=== PATIENT | female | born 1945 | race Caucasian/White ===

== ENCOUNTER 2020-08-11 22:35 | Emergency (ER) | payer MEDICARE, SELFPAY ==
[2020-08-11 22:51] VITALS: BP 147/73; BP 147/79; PULSE 74; PULSE 87; RESP 13; TEMP 37; O2SAT 95; O2SAT 96; BMI 20.9
[2020-08-11 23:00] VITALS: BP 147/73; PULSE 74; PULSE 78; RESP 13; TEMP 37; O2SAT 96
--- NOTE | 2020-08-11 23:01 | ED_ITS ---
HPI - Chest Pain General Chief Complaint: Chest Pain Stated Complaint: CP Time Seen by Provider: 08/11/20 22:49 Source: patient and EMS Mode of arrival: EMS History of Present Illness HPI narrative: 74-year-old female with substernal chest pain for 2 days. Patient states of nonradiating pain mild shortness of breath no dizziness or syncope. Denies nausea or vomiting. Denies fevers or chills. States of dry cough patient states pain has been constant for 2 days and was worried because she has had 2 heart attacks in the past came into the emergency department via ambulance complaint: chest pain Pertinent past history: prior MA Onset (ago): day(s) (2) Timing of current episode: constant Prior episodes: Yes Onset: during rest Pain radiation: none Severity: moderate Associated symptoms: nausea Related Data Allergies Allergy/AdvReac Type Severity Reaction Status Date / Time oxycodone [OXYCODONE] Allergy Unknown UNKNOWN Unverified 06/06/20 15:51 Review of Systems Review of Systems: Constitutional : No Weight loss, No Fever, No Chills, No Night Sweats, No Fatigue, No Malaise ENT/Mouth : No Hearing loss, No Ear Pain, No Nasal Congestion, No Sinus Pain, No Hoarseness, No sore throat, No Rhinorrhea, No Swallowing Difficulty Eyes: No Eye Pain, No Swelling, No Redness, No Foreign Body, No Discharge, No Vision Changes Cardiovascular : Positive Chest Pain, No SOB, No Dyspnea on Exertion, No Orthopnea, No Edema, No Palpitations Respiratory : No Cough, No Sputum, No Wheezing, No Smoke Exposure, No Dyspnea Gastrointestinal : No Nausea, No Vomiting, No Diarrhea, No Constipation, No abdominal Pain, No Hematochezia, No Melena Genitourinary : no irregular bleeding, No Dysuria, No Urinary Frequency, No Hematuria, No Urinary Incontinence, No Urgency, No Flank Pain, No Urinary Flow Changes, No Hesitancy Musculoskeletal : No joint pain, No Myalgias, No Joint Swelling Skin : No Skin Lesions, No rash Neuro : No Weakness, No Numbness, No Paresthesias, No Loss of Consciousness, No Dizziness, No Headache Psych : No Anxiety/Panic, No Depression, No SI/HI/AH/VH, No Social Issues, Heme/Lymph: No Bruising, No Bleeding,No Lymphadenopathy Endocrine : No Polyuria, No Polydipsia, No Temperature Intolerance [facility] Past Medical History Medical History (Updated 08/12/20 @ 01:00 by Christian Walker DO) NSTEMI (non-ST elevated myocardial infarction) Family History Family History (Updated 08/11/20 @ 23:04 by Christian Walker DO) Other Family history non-contributory Social History Social History Household Members: Family Alcohol intake: never Smoked in Last 30 Days: No Use of substances other than those prescribed or required for medical reasons: No Advance Directives: No Advance Directives Information Provided: No Physical Exam Vital Signs: Vital Signs: Last Vital Signs Temp 97.5 F 08/11/20 23:32 Pulse 78 08/11/20 23:32 Resp 18 08/11/20 23:32 BP 136/76 08/11/20 23:32 Pulse Ox 96 08/11/20 23:32 Body Mass Index 20.9 Vital signs reviewed Appearance: Alert. Oriented X3. No acute distress. Nontoxic appearing Eyes: Pupils equal, round and reactive to light. ENT: Pharynx normal. Neck: Normal inspection. Neck supple. No lymph nodes noted. No crepitus CVS: Normal heart rate and rhythm. Pulses normal. Normal S1 and S2 Respiratory: No respiratory distress. Breath sounds normal. No Wheezing. No rales Abdomen: Soft and nontender. No rigidity. No distention. good BS x4 Skin: Skin warm and dry. Normal skin color. Normal skin turgor. Extremities: No lower extremity edema. Neurovascular intact to all extremities. No Lacerations. No Rash Neuro: Oriented X 3. No motor deficit. No sensory deficit. Moving all extermities. No slurred speech. Course Reevaluation(s) Reevaluation #1: Records reviewed by me. 06/07/2020 [facility] Angiocath performed. No significant coronary artery disease. Reevaluation #2: Re-evaluated. Patient states feeling better Time: 00:58 MDM - Chest Pain MDM Narrative Medical decision making narrative: 74-year-old female with several days of chest pain. Troponin negative. Recent cardiac catheterization at [facility] negative also. At this point without shortness of breath or tachycardia or hypoxia will not pursue pulmonary embolism. Will discharge with follow-up with primary care doctor Lab Data Result diagrams: 08/11/20 23:43 08/11/20 23:43 Labs: Lab Results 08/11/20 08/11/20 08/11/20 Range/Units 23:43 23:43 23:43 WBC 4.5 L (4.8-10.8) X10*3/uL RBC 4.15 L (4.20-5.50) X10*6/uL Hgb 12.0 (12.0-16.0) g/dl Hct 37.2 (37-47) % MCV 89.6 (80-98) fL MCH 28.9 (27.0-33.0) pg MCHC 32.3 (31.0-35.0) g/dl RDW 12.8 (11.0-16.0) % Plt Count 175 (160-400) X10*3/uL MPV 10.9 (9.4-12.3) fL Immature Gran % (Auto) 0.2 (0.0-0.4) % Neut % (Auto) 52.5 (45-73) % Lymph % (Auto) 28.7 (20-40) % [place] % (Auto) 13.9 H (2-11) % Eos % (Auto) 4.3 H (0-4) % Baso % (Auto) 0.4 (0-2) % Lymph # (Auto) 1.3 (1.2-4.9) X10*3/uL [place] # (Auto) 0.6 (0.1-1.2) X10*3/uL Eos # (Auto) 0.2 (0.0-0.4) X10*3/uL Baso # (Auto) 0.0 (0.0-0.2) X10*3/uL Abs Immat Gran (auto) 0.01 (0.00-0.03) X10*3/uL Absolute Neuts (auto) 2.3 (2.0-8.3) X10*3/uL Absolute Nucleated RBC 0.000 (0.0-0.012) X10*3/uL Nucleated RBC % (auto) 0.0 (0.0-0.2) /100WBC Sodium 138 (135-145) mmol/L Potassium 4.1 (3.3-5.1) mmol/l Chloride 106 (96-108) mmol/L Carbon Dioxide 25 (22-29) mmol/L Anion Gap 11 L (12-20) BUN 22 H (9-16) mg/dL Creatinine 0.85 (0.5-1.4) mg/dL Estim Creat Clear Calc 43.8 Estimated GFR > 60 Random Glucose 121 H (60-115) mg/dL Calcium 8.1 L (8.4-10.2) mg/dL Total Bilirubin < 0.2 (0.0-1.0) mg/dL Direct Bilirubin < 0.2 (0.0-0.5) mg/dL AST 23 (5-31) U/L ALT 18 (0-31) U/L Alkaline Phosphatase 119 H (39-117) U/L Troponin I High Sens 7.2 (<3.5-17.0) ng/L Total Protein 6.4 L (6.5-8.0) g/dL Albumin 3.8 (3.5-5.0) g/dL Lipase 56 (8-78) U/L ECG Data ECG #1: Attestation: I personally reviewed and interpreted this ECG as follows: Interpretation: Normal sinus rhythm at 75 beats per minute. Rightward axis. No ST-T changes. Normal p.r. interval Discharge Plan Discharge Clinical Impression: Chest pain Qualifiers: Chest pain type: unspecified Qualified Code(s): R07.9 - Chest pain, unspecified Patient Disposition: Home, Self-Care Instructions: Chest Pain (ED) Additional Instructions: Thank you for visiting the emergency department today. If your symptoms worsen or do not resolve completely please return to the emergency department immediately or call 911. if he have any questions please call your primary care physician Referrals: Tiffany Kent MD [Primary Care Provider] - 2 days Interventions: ED Discharge Assessment Last Done: 08/12/20 01:14 Discharge Date/Time: 08/12/20 01:14 Print Language: Russian
--- NOTE | 2020-08-11 23:05 | ECG_ITS ---
Test Reason : CP Blood Pressure : / mmHG Vent. Rate : 075 BPM Atrial Rate : 075 BPM P-R Int : 136 ms QRS Dur : 064 ms QT Int : 402 ms P-R-T Axes : 036 000 020 degrees QTc Int : 448 ms Normal sinus rhythm Normal ECG When compared with ECG of 20-MAR-2020 14:16, No significant change was found Referred By: Christian Walker Electronically Signed By:KINZA COTTON MD
[2020-08-11 23:32] VITALS: BP 136/76; PULSE 78; RESP 18; TEMP 36.4; O2SAT 96
[2020-08-11 23:48] LABS: MANUAL DIFF FLAG NO
[2020-08-11 23:50] LABS: Basophils Percent Auto 0.4 % (0-2); Eosinophils Absolute Auto 0.2 X10*3/uL (0.0-0.4); Eosinophils Percent Auto 4.3 % (0-4); Hematocrit 37.2 % (37-47); Imm Gran Abs Auto 0.01 X10*3/uL (0.00-0.03); Imm Gran Pct Auto 0.2 % (0.0-0.4); Lymphocytes Absolute Auto 1.3 X10*3/uL (1.2-4.9); Lymphocytes Percent Auto 28.7 % (20-40); Mean Corpuscular HGB Conc 32.3 g/dl (31.0-35.0); Mean Corpuscular Hemoglobin 28.9 pg (27.0-33.0); Mean Corpuscular Volume 89.6 fL (80-98); Mean Platelet Volume 10.9 fL (9.4-12.3); Monocytes Absolute Auto 0.6 X10*3/uL (0.1-1.2); Monocytes Percent Auto 13.9 % (2-11); Neutrophils Absolute Auto 2.3 X10*3/uL (2.0-8.3); Neutrophils Percent Auto 52.5 % (45-73); Platelet Count 175 X10*3/uL (160-400); Red Blood Count 4.15 X10*6/uL (4.20-5.50); Red Cell Distribution Width 12.8 % (11.0-16.0); White Blood Count 4.5 X10*3/uL (4.8-10.8)
--- NOTE | 2020-08-12 00:05 | XR_ITS ---
EXAMINATION: XR CHEST CLINICAL INFORMATION: Chest pain COMPARISON: 03/20/2020 TECHNIQUE: Frontal view of the chest was obtained. FINDINGS: Normal symmetric lung volumes. No parenchymal consolidation. No pleural effusion. No pneumothorax. Cardiomediastinal silhouette and pulmonary vascularity are within normal limits. Aorta is atherosclerotic. No acute osseous abnormalities. XR/XR chest 1V IMPRESSION: No acute findings.
[2020-08-12 00:23] LABS: Troponin-I High Sensitivity 7.2 ng/L (<3.5-17.0)
[2020-08-12 00:25] LABS: Alanine Aminotransferase 18 U/L (0-31); Albumin Level 3.8 g/dL (3.5-5.0); Alkaline Phosphatase 119 U/L (39-117); Anion Gap 11 (12-20); Aspartate Amino Transferase 23 U/L (5-31); Bilirubin Direct < 0.2 mg/dL (0.0-0.5); Bilirubin Total < 0.2 mg/dL (0.0-1.0); Blood Urea Nitrogen 22 mg/dL (9-16); Calcium 8.1 mg/dL (8.4-10.2); Carbon Dioxide 25 mmol/L (22-29); Chloride 106 mmol/L (96-108); Creatinine Clr Calc Pharmacy 43.8; Estimated Glomerular Filt Rate > 60; Glucose Random 121 mg/dL (60-115); Lipase 56 U/L (8-78); Potassium 4.1 mmol/l (3.3-5.1); Sodium 138 mmol/L (135-145); Total Protein 6.4 g/dL (6.5-8.0)
== END 2020-08-12 01:14 | disposition home or self-care (01) ==
PROVIDERS: Emergency Provider Emergency Medicine; PCP Family Medicine
DX: R07.9 Chest pain, unspecified (principal); I25.2 Old myocardial infarction; Z79.899 Other long term (current) drug therapy
CPT/HCPCS: 36415; 71045; 80048; 80076; 83690; 84484; 85025; 93005; 99284

== ENCOUNTER 2020-10-15 16:08 | Emergency (ER) | payer MEDICARE, SELFPAY ==
[2020-10-15 16:24] VITALS: BP 147/66; BP 160/92; PULSE 104; PULSE 80; RESP 16; TEMP 36.6; O2SAT 95; O2SAT 97; BMI 24.2
--- NOTE | 2020-10-15 16:28 | XR_ITS ---
EXAMINATION: XR LUMBOSACRAL SPINE CLINICAL INFORMATION: Fall. COMPARISON: None TECHNIQUE: 2 views of lumbar spine FINDINGS: The lumbar vertebrae have normal height and normal alignment. No fracture or bone destruction. There is spurs at the anterior endplates of lumbar vertebrae most pronounced at the lower 3 lumbar vertebral bodies. There is mild to moderate facet joint arthrosis most pronounced at the L5-S1 disc level. No spondylolysis or spondylolisthesis. There are surgical clips right upper quadrant of abdomen. Moderate volume of stool in colon. No abnormally dilated bowel loop. No radiopaque urinary calculus. XR/XR lumbar spine 2-3V IMPRESSION: 1. No acute abnormality. 2. Moderate degenerative changes of lumbar spine.
--- NOTE | 2020-10-15 16:28 | CT_ITS ---
EXAMINATION: CT HEAD WITHOUT CONTRAST CT CERVICAL SPINE WITHOUT CONTRAST CLINICAL INFORMATION: Fall. COMPARISON: CT head 03/20/2020 TECHNIQUE: Imaging was performed from the skull base to vertex without intravenous administration of contrast. In addition, helical noncontrast CT imaging was acquired through the cervical spine and source images were reviewed along with axial reconstructions and sagittal and coronal MPRs. [This CT examination was performed using dose optimization techniques as appropriate, variously including the following: *Automated exposure control *Adjustment of mA and/or kV according to patient size (this includes techniques or standardized protocols for targeted exams where dose is matched to indication/reason for exam; i.e. extremities or head) *Use of iterative reconstruction technique] DLP: 862 mGy-cm FINDINGS: HEAD: No intracranial mass, hemorrhage, or midline shift is visualized. There is age-appropriate atrophy with prominence of the ventricles and the sulci and hypodensity of the periventricular white matter due to chronic small vessel ischemic disease. There are vascular calcifications of the internal carotid arteries bilaterally. No extra-axial collections are identified. The paranasal sinuses and mastoid air cells are well aerated. CERVICAL SPINE: There is no evidence of acute cervical spine fracture. Vertebral bodies remain normal in height. Cervical vertebrae have normal alignment. There is multilevel degenerative spondylosis of the cervical spine with disc height narrowing and endplate spurs and facet joint arthrosis No pre- or paravertebral soft tissue abnormality is identified. Limited assessment of the lung apices is unremarkable. CT/CT cervical spine wo con IMPRESSION: 1. No acute intracranial pathology. 2. No CT evidence of acute cervical spine fracture or traumatic subluxation
--- NOTE | 2020-10-15 16:28 | XR_ITS ---
EXAMINATION: XR SACRUM AND COCCYX CLINICAL INFORMATION: Fall. COMPARISON: None TECHNIQUE: 2 views of the sacrum and coccyx. FINDINGS: No fracture of the sacrum and coccyx. The sacroiliac joints are normal. XR/XR sacrum coccyx min 2V IMPRESSION: Normal sacrum and coccyx.
--- NOTE | 2020-10-15 16:32 | ED_ITS ---
HPI - Fall General Chief Complaint: Fall Stated Complaint: FALL,+HEADSTRIKE,-LOC,+THINNERS,+COLLAR Time Seen by Provider: 10/15/20 16:22 Source: patient Mode of arrival: ambulatory Limitations: no limitations History of Present Illness HPI Narrative: Patient presents to the ED for fall. Patient states she was on ladder putting up a doll on her shelf and while trying to get down she missed a step and slipped and that caused her to fall onto her back and hit the back of her head. Patient denies any loss of consciousness. Patient main complaint is slight posterior headache and lower back pain. Patient denies any abdominal pain, chest pain, shortness of breath or pain in extremites. Patient able to move upper and lower extremities. Patient denies having any chest pain, dizziness, abdominal pain, or headache before falling. Once again patient states she lost step on the ladder and than slipped and fell backwards. MD complaint: fall Related Data Allergies Allergy/AdvReac Type Severity Reaction Status Date / Time oxycodone [OXYCODONE] Allergy Unknown UNKNOWN Verified 10/15/20 16:32 Review of Systems Review of Systems: Yes all other systems are reviewed and are negative Constitutional: Constitutional: Reports as per HPI, Reports no additional constitutional complaints and Reports headache(s) Eyes: Eyes: Reports as per HPI and Reports no additional eye complaints ENT: Reports system reviewed and no additional complaints, except as documented, Reports as per HPI and Reports headache(s) Cardiovascular: Cardiovascular: Reports as per HPI and Reports no additional cardiovascular complaints Respiratory: Respiratory: Reports as per HPI and Reports no additional respiratory complaints Gastrointestinal: Gastrointestinal: Reports as per HPI and Reports no additional gastrointestinal complaints Genitourinary: Genitourinary: Reports no additional female genitourinary complaints and Reports as per HPI Musculoskeletal: Musculoskeletal: Reports no additional musculoskeletal complaints, Reports as per HPI and Reports back pain Neurologic: Reports system reviewed and no additional complaints, except as documented, Reports as per HPI and Reports headache(s) Psychiatric: Psychiatric: Reports no additional psychiatric complaints and Reports as per HPI PMF Past Medical History Medical History NSTEMI (non-ST elevated myocardial infarction) Family History Family History (Updated 08/11/20 @ 23:04 by Christian Walker DO) Other Family history non-contributory Social History Social History Household Members: Family Alcohol intake: never Advance Directives: No Advance Directives Information Provided: No Physical Exam Vital Signs: Vital Signs: Last Vital Signs Temp 98.7 F 10/15/20 17:08 Pulse 78 10/15/20 17:08 Resp 14 10/15/20 17:08 BP 154/73 H 10/15/20 17:08 Pulse Ox 93 10/15/20 17:08 Body Mass Index 24.2 Const: General: cooperative, healthy appearing, comfortable, no acute distress, well developed, alert, awake and Physically active Orientation/consciousness: patient oriented x3 HENMT: Head: Yes normal to inspection, Yes No palpable skull fracture present, Yes normocephalic, Yes atraumatic, No abrasion, No Acrocyanosis present, No [place]'s sign, No contusion, No cranial bruits, No hematoma, No laceration, No occipital foramen tenderness, No palpable skull fracture, No raccoon eyes, No scalp lesion, Yes scalp tenderness (posterior parietal.), No Temporal artery tenderness present and No periorbital ecchymosis Eyes: General: appearance normal, both eyes and all related structures Neck: Neck: Yes normal visual inspection, Yes full ROM, Yes no lymphadenopathy, Yes no meningeal signs, Yes trachea midline, Yes supple and No tender Chest: Other: Negative for any ecchymosis or tenderness. Chest palpation & inspection: normal inspection of the chest and normal palpation of entire chest wall Resp: Effort & Inspection: normal respiratory effort and able to speak in complete sentences Auscultation: clear to auscultation bilaterally Cardio: Jugular venous distension: no JVD Heart sounds: S1 normal heart sound present and S2 normal heart sound present GI: Inspection: Yes normal to inspection and No abdominal wall ecchymosis Palpation (GI): Soft to palpation, not firm, nontender, no guarding and not rigid : General: No CVA tenderness and Yes no CVA tenderness Back/Spine/Pelvis: Back: no CVA tenderness, No CVA tenderness and back tenderness (Positive for lumbar/sacral/coccyx tenderness on palpation) Skin: General skin exam: no rashes or lesions noted and elasticity normal Neuro: General: patient oriented x3, gait normal, no meningeal signs and CN's II-XI intact bilaterally Cranial nerves: Yes CN's II-XII intact bilaterally Extrem: Other: Patient has complete range of motion of all extremities. Negative for any deformities, contusion, or tenderness of any extremities. Psych: Appearance: grossly normal, well kempt and not disheveled Course Course Course Narrative: History physical exam indicate mechanical fall. Presently no labs indicated. Patient does not have any chest pain or abdominal pain to indicate any imaging of the chest or abdomen. Patient will have head, CT, and lower back imaging. Patient given Tylenol Reevaluation(s) Reevaluation #1: Head CT and cervical C-spine came back negative for any brain bleed, skull fracture, a neck fracture. Awaiting for x-rays. Time: 17:44 Reevaluation #2: Patient lumbar and sacral x-rays came back negative for any fractures. Patient walked around to the bathroom by herself with normal gait. Bedside fast ultrasound negative for any blood. Patient is safe for discharge. No indication for labs or ekg. Patient had mechanical fall onto her head and back. Patient denies any chest pain. Time: 19:12 MDM - Fall MDM Narrative Medical decision making narrative: Fall Discharge Plan Discharge Clinical Impression: Accident due to mechanical fall without injury Patient Disposition: Home, Self-Care Instructions: Head Injury (ED), Fall Prevention (ED) Additional Instructions: Return to the ED immediately for worsening headache, dizziness, chest pain, shortness of breath, abdominal pain, bloody urine, blood in stool, or any other concerning symptoms. Patient take [id number] Tylenol. Follow up with PCP Interventions: ED Discharge Assessment Last Done: 10/15/20 20:05 Discharge Date/Time: 10/15/20 20:07 Print Language: Turkmen
[2020-10-15] MEDS: Acetaminophen 325 MG TABLET 650 MG PO (16:37)
[2020-10-15 17:08] VITALS: BP 154/73; PULSE 78; RESP 14; TEMP 37.1; O2SAT 93
--- NOTE | 2020-10-15 19:37 | PC.NURSE ---
PT REMAINS A&OX4, REPORTING CHRONIC HEADACHE, IMPROVED WITH APAP. AMBULATING STEADILY, VS HAVE BEEN WNL.
== END 2020-10-15 20:07 | disposition home or self-care (01) ==
PROVIDERS: Emergency Provider Emergency Medicine Emergency Medical Services; PCP Family Medicine
DX: S09.90XA Unspecified injury of head, initial encounter (principal); W11.XXXA Fall on and from ladder, initial encounter; G89.11 Acute pain due to trauma; M54.5 Low back pain; Y93.89 Activity, other specified; Y92.019 Unspecified place in single-family (private) house as the place of occurrence of the external cause; Y99.9 Unspecified external cause status
CPT/HCPCS: 70450; 72100; 72125; 72220; 99284

== ENCOUNTER 2020-10-28 11:19 | Emergency (ER) | payer MEDICARE, SELFPAY ==
--- NOTE | ~2020-10-28 | XR_ITS ---
EXAMINATION: XR CHEST CLINICAL INFORMATION: Fever and cough COMPARISON: Previous chest x-ray July 2020 TECHNIQUE: Frontal view of the chest was obtained. FINDINGS: The cardiac and mediastinal contours are normal. There are increased markings at the left lung base overlying the left heart questionable for bronchial wall thickening or small infiltrate. The lungs are otherwise clear. There is no pleural effusion or pneumothorax. Bony structures are unremarkable. XR/XR chest 1V IMPRESSION: Question bronchial wall thickening or small infiltrate at the left lung base.
[2020-10-28 11:40] VITALS: BP 135/77; PULSE 96; RESP 18; TEMP 39; O2SAT 95; BMI 22.4
--- NOTE | 2020-10-28 11:46 | ECG_ITS ---
Test Reason : CHEST PAIN Blood Pressure : / mmHG Vent. Rate : 093 BPM Atrial Rate : 093 BPM P-R Int : 122 ms QRS Dur : 068 ms QT Int : 336 ms P-R-T Axes : 041 -11 039 degrees QTc Int : 417 ms Normal sinus rhythm Nonspecific ST and T wave abnormality Borderline EKG When compared with ECG of 11-AUG-2020 23:29, No significant change was found Referred By: Chika Agosto Electronically Signed By:RAGHU MULLINS
--- NOTE | 2020-10-28 11:50 | ED_ITS ---
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 Has been at home is sick with similar symptoms. On arrival the patient is noted to be febrile. She denies any chest pain, shortness of breath, cough, vomiting, diarrhea, abdominal pain, urinary symptoms. MD elicited complaint: malaise and other (body aches ) Onset (ago): day(s) Associated symptoms: denies other symptoms Related Data Previous Rx's Medication Instructions Recorded azithromycin 250 mg PO DAILY 4 Days #4 tab 10/28/20 cefdinir 300 mg PO BID #14 cap 10/28/20 Allergies Allergy/AdvReac Type Severity Reaction Status Date / Time oxycodone [OXYCODONE] Allergy Unknown UNKNOWN Verified 10/28/20 11:43 Review of Systems Review of Systems: Yes all other systems are reviewed and are negative Constitutional: Constitutional: Reports no additional constitutional complaints, Reports body ache(s), Denies chills, Denies fever(s), Denies headache(s), Reports malaise and Denies weakness Eyes: Eyes: Reports no additional eye complaints and Denies change in vision ENT: Reports system reviewed and no additional complaints, except as documented, Denies dizziness, Denies headache(s), Denies nasal congestion, Denies nasal discharge and Denies neck pain Cardiovascular: Cardiovascular: Reports no additional cardiovascular complaints, Denies chest pain, Denies leg edema and Denies dyspnea Respiratory: Respiratory: Reports no additional respiratory complaints, Denies cough and Denies dyspnea Gastrointestinal: Gastrointestinal: Reports no additional gastrointestinal complaints, Denies abdominal pain, Denies diarrhea, Denies nausea and Denies vomiting Genitourinary: Genitourinary: Reports no additional female genitourinary com plaints and Denies urinary incontinence Musculoskeletal: Musculoskeletal: Reports no additional musculoskeletal complaints, Denies back pain, Denies arthralgias, Denies joint swelling, Denies neck pain, Denies numbness and Denies tingling Integumentary/Breasts: Skin/Breast: Reports system reviewed and no additional complaints, except as docu and Denies rash Neurologic: Reports system reviewed and no additional complaints, except as documented, Denies Abnormal speech present, Denies dizziness, Denies headache(s), Denies numbness, Denies tingling and Denies weakness PMFSH Past Medical History Attestation statement: The following information was validated with the patient. Source: old records reviewed and nursing notes reviewed Medical History (Updated 10/28/20 @ 14:07 by Darlene Lake NP) Aortic insufficiency Depression Diabetes GERD (gastroesophageal reflux disease) High cholesterol Hypertension NSTEMI (non-ST elevated myocardial infarction) Pancreatitis Family History Family History Other Family history non-contributory Social History Social History Household Members: Family Alcohol intake: never Advance Directives: No Advance Directives Information Provided: Yes Physical Exam Vital Signs: Vital Signs: Last Vital Signs Temp 100.1 F 10/28/20 12:04 Pulse 88 10/28/20 12:04 Resp 18 10/28/20 12:04 BP 143/73 H 10/28/20 12:04 Pulse Ox 92 10/28/20 12:04 Body Mass Index 22.4 Const: General: cooperative, healthy appearing, comfortable and no acute distress Orientation/consciousness: patient oriented x3 Limitations: no limitations HENMT: Head: Yes normal to inspection Ears: hearing grossly normal bilaterally General nose exam: Normal external nose present Face and sinus: Yes normal facial exam Mouth: Normal oral and palatal mucosa present Throat: Yes posterior oropharynx normal Eyes: General: appearance normal, both eyes and all related structures Pupils: Equal, round and reactive pupils present Neck: Neck: Yes normal visual inspection Chest: Chest palpation & inspection: normal inspection of the chest Resp: Effort & Inspection: normal respiratory effort Auscultation: clear to auscultation bilaterally Cardio: Rate: regular rate Rhythm: regular rhythm Peripheral pulses: Peripheral pulses 2+ throughout GI: Inspection: Yes normal to inspection Palpation (GI): Soft to palpation and nontender Auscultation: normal bowel sounds Back/Spine/Pelvis: Thoracic/Lumbar Spine: thoracic and lumbar spine normal to inspection Skin: General skin exam: no rashes or lesions noted Neuro: General: patient oriented x3, no focal motor deficits and normal sensation to monofilament Cranial nerves: Yes Equal, round and reactive pupils present Cognition (Neuro): normal cognition Speech: No Abnormal speech present Gait exam (Neuro): Normal gait present Motor exam (neuro): 5/5 motor strength present throughout Extrem: General: Yes normal to inspection Course Course Course Narrative: 75-year-old female here with body aches, noted to be febrile on arrival. Has been at home is sick with similar symptoms. No other complaints. Will need labs including blood cultures, lactic acid, COVID-19 swab, UA, chest x-ray. 1256-COVID positive. Chest x-ray concerning for a small infiltrate at the left lung base. Antibiotics ordered. 1415-labs reviewed and are unremarkable. The patient does had a troponin which is chronically elevated and does not appear worsened from previous troponins. EKG shows no acute changes. With oxygen saturations greater than 96% with no shortness of breath. Temp and heart rate improved on discharge. Patient unable to provide urine sample she was here in the emergency department. Offered to stay in ED and wait for sample but she declined this. Discussed with patient and she is comfortable being discharged home. She lives with family. Reviewed worrisome signs and symptoms and when to return to the emergency department. Comfortable discharge home. MDM - Fever MDM Narrative Medical decision making narrative: PNA, COVID 19, viral syndrome Medical Records Attestation: I reviewed the patient's medical records. Lab Data Attestation: I reviewed the patient's lab results. Result diagrams: 10/28/20 12:12 10/28/20 12:12 Labs: Lab Results 10/28/20 10/28/20 10/28/20 Range/Units 12:12 12:12 12:12 WBC 3.2 L (4.8-10.8) X10*3/uL RBC 4.52 (4.20-5.50) X10*6/uL Hgb 13.1 (12.0-16.0) g/dl Hct 40.3 (37-47) % MCV 89.2 (80-98) fL MCH 29.0 (27.0-33.0) pg MCHC 32.5 (31.0-35.0) g/dl RDW 13.2 (11.0-16.0) % Plt Count 164 (160-400) X10*3/uL MPV 11.0 (9.4-12.3) fL Immature Gran % (Auto) 0.6 H (0.0-0.4) % Neut % (Auto) 60.4 (45-73) % Lymph % (Auto) 17.5 L (20-40) % [place] % (Auto) 20.6 H (2-11) % Eos % (Auto) 0.3 (0-4) % Baso % (Auto) 0.6 (0-2) % Lymph # (Auto) 0.6 L (1.2-4.9) X10*3/uL [place] # (Auto) 0.7 (0.1-1.2) X10*3/uL Eos # (Auto) 0.0 (0.0-0.4) X10*3/uL Baso # (Auto) 0.0 (0.0-0.2) X10*3/uL Abs Immat Gran (auto) 0.02 (0.00-0.03) X10*3/uL Absolute Neuts (auto) 1.9 L (2.0-8.3) X10*3/uL Absolute Nucleated RBC 0.000 (0.0-0.012) X10*3/uL Nucleated RBC % (auto) 0.0 (0.0-0.2) /100WBC Smear Tech's Comments VERIFIED Hold Blue Top SEE NOTE Sodium 136 (135-145) mmol/L Potassium 4.4 (3.3-5.1) mmol/L Chloride 103 (96-108) mmol/L Carbon Dioxide 27 (22-29) mmol/L Anion Gap 10 L (12-20) BUN 12 (9-16) mg/dL Creatinine 0.95 (0.5-1.4) mg/dL Estim Creat Clear Calc 36.7 Estimated GFR 57 Random Glucose 121 H (60-115) mg/dL Lactic Acid (0.5-2.0) mmol/L Calcium 9.1 D (8.4-10.2) mg/dL Magnesium 2.2 (1.6-2.6) mg/dL Total Bilirubin 0.3 (0.0-1.0) mg/dL Direct Bilirubin 0.2 (0.0-0.5) mg/dL AST 33 H D (5-31) U/L ALT 22 (0-31) U/L Alkaline Phosphatase 95 D (39-117) U/L Troponin I High Sens (<3.5-17.0) ng/L Total Protein 7.1 (6.5-8.0) g/dL Albumin 4.1 (3.5-5.0) g/dL COVID-19 (HEMA) (Negative) COVID-19 Clin Com 10/28/20 10/28/20 10/28/20 Range/Units 12:12 12:12 12:13 WBC (4.8-10.8) X10*3/uL RBC (4.20-5.50) X10*6/uL Hgb (12.0-16.0) g/dl Hct (37-47) % MCV (80-98) fL MCH (27.0-33.0) pg MCHC (31.0-35.0) g/dl RDW (11.0-16.0) % Plt Count (160-400) X10*3/uL MPV (9.4-12.3) fL Immature Gran % (Auto) (0.0-0.4) % Neut % (Auto) (45-73) % Lymph % (Auto) (20-40) % [place] % (Auto) (2-11) % Eos % (Auto) (0-4) % Baso % (Auto) (0-2) % Lymph # (Auto) (1.2-4.9) X10*3/uL [place] # (Auto) (0.1-1.2) X10*3/uL Eos # (Auto) (0.0-0.4) X10*3/uL Baso # (Auto) (0.0-0.2) X10*3/uL Abs Immat Gran (auto) (0.00-0.03) X10*3/uL Absolute Neuts (auto) (2.0-8.3) X10*3/uL Absolute Nucleated RBC (0.0-0.012) X10*3/uL Nucleated RBC % (auto) (0.0-0.2) /100WBC Smear Tech's Comments Hold Blue Top Sodium (135-145) mmol/L Potassium (3.3-5.1) mmol/L Chloride (96-108) mmol/L Carbon Dioxide (22-29) mmol/L Anion Gap (12-20) BUN (9-16) mg/dL Creatinine (0.5-1.4) mg/dL Estim Creat Clear Calc Estimated GFR Random Glucose (60-115) mg/dL Lactic Acid 1.2 (0.5-2.0) mmol/L Calcium (8.4-10.2) mg/dL Magnesium (1.6-2.6) mg/dL Total Bilirubin (0.0-1.0) mg/dL Direct Bilirubin (0.0-0.5) mg/dL AST (5-31) U/L ALT (0-31) U/L Alkaline Phosphatase (39-117) U/L Troponin I High Sens 7.2 (<3.5-17.0) ng/L Total Protein (6.5-8.0) g/dL Albumin (3.5-5.0) g/dL COVID-19 (HEMA) Positive A (Negative) COVID-19 Clin Com See Note Imaging Data Chest x-ray: Attestation: I personally reviewed and interpreted this imaging study as follows: Radiologist's impression: [address] [id number] ReportSigned Patient: Esther Méndez#: [id number]: 6Ac ct:[id number]/Sex: 75 / FADM Date: 10/28/20Loc: [address] Dr: Ordering Physician: DARLENE LAKE NP Date of Service: 10/28/20 Procedure(s): XR chest 1V Accession Number(s): [id number] cc: DARLENE LAKE NP~ EXAMINATION: XR CHEST CLINICAL INFORMATION: Fever and cough COMPARISON: Previous chest x-ray July 2020 TECHNIQUE: Frontal view of the chest was obtained. FINDINGS: The cardiac and mediastinal contours are normal. There are increased markings at the left lung base overlying the left heart questionable for bronchial wall thickening or small infiltrate. The lungs are otherwise clear. There is no pleural effusion or pneumothorax. Bony structures are unremarkable. XR/XR chest 1V IMPRESSION: Question bronchial wall thickening or small infiltrate at the left lung base. ECG Data ECG #1: Attestation: I personally reviewed and interpreted this ECG as follows: Interpretation: Normal sinus rhythm with a rate of 93, normal AL, normal QRS, normal QT Discharge Plan Discharge Clinical Impression: COVID-19 Community acquired pneumonia Qualifiers: Laterality: left Lung location: lower lobe of lung Qualified Code(s): J18.9 - Pneumonia, unspecified organism Patient Disposition: Home, Self-Care Instructions: Community Acquired Pneumonia (ED), COVID-19 (Coronavirus Disease 2019) (ED) Additional Instructions: Start antibiotics tomorrow You have tested positive for COVID-19. You need to quarantine for total of 10 days and her symptoms must be resolved for greater than 24 hours before being around other people. Take Motrin or Tylenol as needed for pain or fever Increase fluids and rest Return for chest pain, shortness of breath, fever greater than 100.4 not resolved with Motrin or Tylenol Prescriptions: New cefdinir 300 mg capsule 300 mg PO BID Qty: 14 RF: 0 azithromycin 250 mg tablet 250 mg PO DAILY 4 Days Qty: 4 RF: 0 Referrals: Tiffany Kent MD [Primary Care Provider] - 2 days Interventions: ED Discharge Assessment Last Done: 10/28/20 14:51 Discharge Date/Time: 10/28/20 14:51 Print Language: Malagasy
[2020-10-28 12:04] VITALS: BP 143/73; PULSE 88; RESP 18; TEMP 37.8; O2SAT 92
[2020-10-28 12:32] LABS: COVID-19 Test Positive (Negative); IDNOW Serial# 9DD0AD1C
[2020-10-28 12:33] LABS: Basophils Percent Auto 0.6 % (0-2); Eosinophils Percent Auto 0.3 % (0-4); Hematocrit 40.3 % (37-47); Hemoglobin 13.1 g/dl (12.0-16.0); Imm Gran Abs Auto 0.02 X10*3/uL (0.00-0.03); Imm Gran Pct Auto 0.6 % (0.0-0.4); Lymphocytes Absolute Auto 0.6 X10*3/uL (1.2-4.9); Lymphocytes Percent Auto 17.5 % (20-40); MANUAL DIFF FLAG SCAN; Mean Corpuscular HGB Conc 32.5 g/dl (31.0-35.0); Mean Corpuscular Volume 89.2 fL (80-98); Monocytes Absolute Auto 0.7 X10*3/uL (0.1-1.2); Monocytes Percent Auto 20.6 % (2-11); Neutrophils Absolute Auto 1.9 X10*3/uL (2.0-8.3); Neutrophils Percent Auto 60.4 % (45-73); Platelet Count 164 X10*3/uL (160-400); Red Blood Count 4.52 X10*6/uL (4.20-5.50); Red Cell Distribution Width 13.2 % (11.0-16.0); SCAN SMEAR FLAG 1; White Blood Count 3.2 X10*3/uL (4.8-10.8)
[2020-10-28] MEDS: 0.9 % Sodium Chloride 1,000 ML 999 ML IV (12:47)
[2020-10-28] MEDS: Acetaminophen 325 MG TABLET 975 MG PO (12:47)
[2020-10-28 12:57] LABS: SLIDE REVIEW VERIFIED
[2020-10-28 13:01] LABS: Lactic Acid 1.2 mmol/L (0.5-2.0)
[2020-10-28 13:06] LABS: Alanine Aminotransferase 22 U/L (0-31); Albumin Level 4.1 g/dL (3.5-5.0); Alkaline Phosphatase 95 U/L (39-117); Anion Gap 10 (12-20); Aspartate Amino Transferase 33 U/L (5-31); Bilirubin Direct 0.2 mg/dL (0.0-0.5); Bilirubin Total 0.3 mg/dL (0.0-1.0); Blood Urea Nitrogen 12 mg/dL (9-16); Calcium 9.1 mg/dL (8.4-10.2); Carbon Dioxide 27 mmol/L (22-29); Chloride 103 mmol/L (96-108); Creatinine Clr Calc Pharmacy 36.7; Estimated Glomerular Filt Rate 57; Glucose Random 121 mg/dL (60-115); Magnesium 2.2 mg/dL (1.6-2.6); Potassium 4.4 mmol/L (3.3-5.1); Sodium 136 mmol/L (135-145); Total Protein 7.1 g/dL (6.5-8.0)
[2020-10-28 13:08] LABS: Troponin-I High Sensitivity 7.2 ng/L (<3.5-17.0)
[2020-10-28] MEDS: cefTRIAXone sodium 1 GM in 0.9 % Sodium Chloride 50 ML IV (13:17)
[2020-10-28] MEDS: Azithromycin 500 MG TABLET PO (14:18)
--- NOTE | 2020-10-28 14:25 | PC.NURSE ---
CALLED DAUGHTER LUKE TO DENTAL COORDINATOR THE PT
== END 2020-10-28 14:51 | disposition home or self-care (01) ==
PROVIDERS: Nurse Practitioner Family; Emergency Provider Emergency Medicine; PCP Family Medicine
DX: U07.1 COVID-19 (principal); E11.9 Type 2 diabetes mellitus without complications; I10 Essential (primary) hypertension; J45.909 Unspecified asthma, uncomplicated; I25.2 Old myocardial infarction
CPT/HCPCS: 36415; 71045; 80048; 80076; 83605; 83735; 84484; 85025; 87040; 87635; 93005; 96361; 96365; 96366; 96367; 99284; J0696

== ENCOUNTER 2020-10-31 16:39 | Emergency (ER) | payer MEDICARE, SELFPAY ==
--- NOTE | ~2020-10-31 | XR_ITS ---
EXAMINATION: XR CHEST CLINICAL INFORMATION: Shortness of breath, Covid positive COMPARISON: 10/28/2020 TECHNIQUE: Frontal view of the chest was obtained. FINDINGS: Aside from mild hypoexpansion, no significant abnormality is noted involving the heart, lungs, mediastinum, bony thorax or soft tissues. XR/XR chest 1V IMPRESSION: No acute intrathoracic disease.
[2020-10-31 16:42] VITALS: BP 128/82; BP 173/85; PULSE 76; PULSE 88; RESP 12; TEMP 36.9; O2SAT 96; O2SAT 98; BMI 22.4
--- NOTE | 2020-10-31 17:15 | ED_ITS ---
HPI - General Adult General Chief complaint: Dyspnea Stated complaint: +COVID,SOB Time Seen by Provider: 10/31/20 16:53 Source: patient Mode of arrival: wheelchair Limitations: no limitations History of Present Illness HPI narrative: Patient comes to the emergency room complaining of vomiting, diarrhea, shortness of breath. Patient states that she was diagnosed with COVID-19 on October 28. Patient had 1 episode of shortness of breath with exertion today, states that she was told that if this happens she needs to come to the emergency room which she did. At this time, patient is not short of breath, but states that she has been very uncomfortable with vomiting and diarrhea for the last few days. Related Data Previous Rx's Medication Instructions Recorded azithromycin 250 mg PO DAILY 4 Days #4 tab 10/28/20 cefdinir 300 mg PO BID #14 cap 10/28/20 dexamethasone [Decadron] 6 mg PO DAILY #5 tab 10/31/20 loperamide [Anti-Diarrheal 2 mg PO Q6H PRN #14 cap 10/31/20 (loperamide)] ondansetron HCl [Zofran] 4 mg PO Q6H PRN #14 tab 10/31/20 Allergies Allergy/AdvReac Type Severity Reaction Status Date / Time oxycodone [OXYCODONE] Allergy Unknown UNKNOWN Verified 10/28/20 11:43 Review of Systems Review of Systems: Constitutional : Complaining of fatigue, generalized malaise, chills, subjective fever ENT/Mouth : No Hearing loss, No Ear Pain, No Nasal Congestion, No Sinus Pain, No Hoarseness, No sore throat, No Rhinorrhea, No Swallowing Difficulty Eyes: No Eye Pain, No Swelling, No Redness, No Foreign Body, No Discharge, No Vision Changes Cardiovascular : No Chest Pain, 1 episode of shortness of breath with exertion Respiratory : Dry Cough, No Sputum, No Wheezing, No Smoke Exposure, Gastrointestinal complaining of nausea vomiting and diarrhea, No Constipation, No abdominal Pain, No Hematochezia, No Melena Genitourinary : no irregular bleeding, No Dysuria, No Urinary Frequency, No Hematuria, No Urinary Incontinence, No Urgency, No Flank Pain, No Urinary Flow Changes, No Hesitancy Musculoskeletal : No joint pain, complaining of generalized Myalgias, No Joint Swelling Skin : No Skin Lesions, No rash Neuro : No Weakness, No Numbness, No Paresthesias, No Loss of Consciousness, No Dizziness, No Headache Psych : No Anxiety/Panic, No Depression, No SI/HI/AH/VH, No Social Issues, Heme/Lymph: No Bruising, No Bleeding,No Lymphadenopathy Endocrine : No Polyuria, No Polydipsia, No Temperature Intolerance [facility] Past Medical History Medical History Aortic insufficiency Asthma Depression Diabetes GERD (gastroesophageal reflux disease) High cholesterol Hypertension NSTEMI (non-ST elevated myocardial infarction) Pancreatitis Family History Family History Other Family history non-contributory Social History Social History Household Members: Family Alcohol intake: never Smoked in Last 30 Days: No Use of substances other than those prescribed or required for medical reasons: No Advance Directives: No Advance Directives Information Provided: Yes Physical Exam Vital Signs: Vital Signs: Last Vital Signs Temp 98.4 F 10/31/20 18:03 Pulse 76 10/31/20 18:03 Resp 14 10/31/20 18:03 BP 154/77 H 10/31/20 18:03 Pulse Ox 98 10/31/20 18:03 Body Mass Index 22.4 Appearance: Alert. Oriented X3. No acute distress. Eyes: Pupils equal, round and reactive to light. ENT: Pharynx normal. Neck: Normal inspection. Neck supple. No lymph nodes noted. No crepitus CVS: Normal heart rate and rhythm. Pulses normal. Normal S1 and S2, +4 systolic murmur Respiratory: No respiratory distress. Breath sounds normal. No Wheezing. No rales Abdomen: Soft and nontender. No rigidity. No distention. good BS x4 Skin: Skin warm and dry. Normal skin color. Normal skin turgor. Extremities: No lower extremity edema. No lower extremity edema. No Lacerations. No Rash Neuro: Oriented X 3. No motor deficit. No sensory deficit. Moving all extermities. No slurred speech. Course Course Course Narrative: Patient ambulated to the bathroom unassisted, oxygen saturation remained at 95% while walking and when that she return to the bed, oxygen remained at the same level, no shortness of breath. Patient will be discharged home. Patient states that at this time, she feels well, has no chest pressure, no shortness of breath, no abdominal discomfort Medical Decision Making Lab Data Result diagrams: 10/31/20 17:50 10/31/20 17:50 Labs: Lab Results 10/31/20 10/31/20 10/31/20 Range/Units 17:50 17:50 17:50 WBC 1.8 L (4.8-10.8) X10*3/uL RBC 4.45 (4.20-5.50) X10*6/uL Hgb 12.7 (12.0-16.0) g/dl Hct 40.4 (37-47) % MCV 90.8 (80-98) fL MCH 28.5 (27.0-33.0) pg MCHC 31.4 (31.0-35.0) g/dl RDW 12.9 (11.0-16.0) % Plt Count 174 (160-400) X10*3/uL MPV 10.8 (9.4-12.3) fL Immature Gran % (Auto) 0.5 H (0.0-0.4) % Neut % (Auto) 24.1 L (45-73) % Lymph % (Auto) 53.0 H (20-40) % [place] % (Auto) 19.7 H (2-11) % Eos % (Auto) 2.7 (0-4) % Baso % (Auto) 0.0 (0-2) % Lymph # (Auto) 1.0 L (1.2-4.9) X10*3/uL [place] # (Auto) 0.4 (0.1-1.2) X10*3/uL Eos # (Auto) 0.1 (0.0-0.4) X10*3/uL Baso # (Auto) 0.0 (0.0-0.2) X10*3/uL Abs Immat Gran (auto) 0.01 (0.00-0.03) X10*3/uL Absolute Neuts (auto) 0.4 L (2.0-8.3) X10*3/uL Absolute Nucleated RBC 0.000 (0.0-0.012) X10*3/uL Nucleated RBC % (auto) 0.0 (0.0-0.2) /100WBC Smear Tech's Comments VERIFIED Sodium 141 (135-145) mmol/L Potassium 4.5 (3.3-5.1) mmol/L Chloride 105 (96-108) mmol/L Carbon Dioxide 27 (22-29) mmol/L Anion Gap 14 (12-20) BUN 14 (9-16) mg/dL Creatinine 0.95 (0.5-1.4) mg/dL Estim Creat Clear Calc 36.7 Estimated GFR 57 Random Glucose 111 (60-115) mg/dL Calcium 8.9 (8.4-10.2) mg/dL Troponin I High Sens 5.2 (<3.5-17.0) ng/L B-Natriuretic Peptide 31 (<100) pg/mL Imaging Data Chest x-ray: Radiologist's impression: INDINGS: Aside from mild hypoexpansion, no significant abnormality is noted involving the heart, lungs, mediastinum, bony thorax or soft tissues. XR/XR chest 1V IMPRESSION: No acute intrathoracic disease. ECG Data Attestation: I personally reviewed and interpreted this ECG as follows: (Heart rate 69, sinus rhythm, QTC 445, no ST segment depressions or elevations, no T- wave inversions.) Discharge Plan Discharge Clinical Impression: COVID-19, Vomiting and diarrhea Patient Disposition: Home, Self-Care Instructions: Acute Nausea and Vomiting (ED), Acute Diarrhea (ED) Additional Instructions: Continue taking your prescribed antibiotics. Please follow-up with your primary care physician tomorrow. If you have any worsening or new symptoms, please return to the emergency room or call 911 Prescriptions: New ondansetron HCl [Zofran] 4 mg tablet 4 mg PO Q6H PRN (Reason: nausea and vomiting) Qty: 14 RF: 0 loperamide [Anti-Diarrheal (loperamide)] 2 mg capsule 2 mg PO Q6H PRN (Reason: loose stool) Qty: 14 RF: 0 dexamethasone [Decadron] 6 mg tablet 6 mg PO DAILY Qty: 5 RF: 0 No Action cefdinir 300 mg capsule 300 mg PO BID Qty: 14 RF: 0 azithromycin 250 mg tablet 250 mg PO DAILY 4 Days Qty: 4 RF: 0
--- NOTE | 2020-10-31 17:26 | ECG_ITS ---
Test Reason : SOB Blood Pressure : / mmHG Vent. Rate : 069 BPM Atrial Rate : 069 BPM P-R Int : 124 ms QRS Dur : 064 ms QT Int : 416 ms P-R-T Axes : 036 -13 059 degrees QTc Int : 445 ms Normal sinus rhythm Normal ECG When compared with ECG of 28-OCT-2020 11:32, No significant change was found Referred By: Sosa Hurt Electronically Signed By:KORINA JAMES MD
[2020-10-31] MEDS: 0.9 % Sodium Chloride 1,000 ML 999 ML IVCONT (17:53)
[2020-10-31 17:58] LABS: Eosinophils Absolute Auto 0.1 X10*3/uL (0.0-0.4); Eosinophils Percent Auto 2.7 % (0-4); Hematocrit 40.4 % (37-47); Hemoglobin 12.7 g/dl (12.0-16.0); Imm Gran Abs Auto 0.01 X10*3/uL (0.00-0.03); Imm Gran Pct Auto 0.5 % (0.0-0.4); MANUAL DIFF FLAG SCAN; Mean Corpuscular HGB Conc 31.4 g/dl (31.0-35.0); Mean Corpuscular Hemoglobin 28.5 pg (27.0-33.0); Mean Corpuscular Volume 90.8 fL (80-98); Mean Platelet Volume 10.8 fL (9.4-12.3); Monocytes Absolute Auto 0.4 X10*3/uL (0.1-1.2); Monocytes Percent Auto 19.7 % (2-11); Neutrophils Absolute Auto 0.4 X10*3/uL (2.0-8.3); Neutrophils Percent Auto 24.1 % (45-73); Platelet Count 174 X10*3/uL (160-400); Red Blood Count 4.45 X10*6/uL (4.20-5.50); Red Cell Distribution Width 12.9 % (11.0-16.0); SCAN SMEAR FLAG 1
[2020-10-31] MEDS: Loperamide HCl 2 MG CAPSULE 4 MG PO (17:58)
[2020-10-31] MEDS: dexAMETHasone sod phosphate 4 MG/ML VIAL 6 MG IVPUSH (17:58)
[2020-10-31] MEDS: ondansetron HCL 4 MG/2 ML VIAL IVPUSH (17:58)
[2020-10-31 18:03] VITALS: BP 154/77; PULSE 76; RESP 14; TEMP 36.9; O2SAT 98
[2020-10-31 18:05] LABS: White Blood Count 1.8 X10*3/uL (4.8-10.8)
[2020-10-31 18:19] LABS: Anion Gap 14 (12-20); Blood Urea Nitrogen 14 mg/dL (9-16); Calcium 8.9 mg/dL (8.4-10.2); Carbon Dioxide 27 mmol/L (22-29); Chloride 105 mmol/L (96-108); Creatinine Clr Calc Pharmacy 36.7; Estimated Glomerular Filt Rate 57; Glucose Random 111 mg/dL (60-115); Potassium 4.5 mmol/L (3.3-5.1); Sodium 141 mmol/L (135-145)
[2020-10-31 18:22] LABS: SLIDE REVIEW VERIFIED
[2020-10-31 18:26] LABS: B Type Natriuretic Peptide 31 pg/mL (<100); Troponin-I High Sensitivity 5.2 ng/L (<3.5-17.0)
--- NOTE | 2020-10-31 18:44 | PC.NURSE ---
Pt ambulating w/ steady and amezquita gait- 95% on room air. pending dispo
[2020-10-31 20:00] VITALS: BP 134/87; PULSE 78; RESP 16; TEMP 37.2; O2SAT 98
== END 2020-10-31 20:50 | disposition home or self-care (01) ==
PROVIDERS: Emergency Provider Emergency Medicine; PCP Family Medicine
DX: U07.1 COVID-19 (principal); R06.02 Shortness of breath; R11.10 Vomiting, unspecified; R19.7 Diarrhea, unspecified; Z79.899 Other long term (current) drug therapy
CPT/HCPCS: 36415; 71045; 80048; 83880; 84484; 85025; 93005; 96361; 96374; 96375; 99284; J1100; J2405

== ENCOUNTER 2020-11-20 16:23 | Inpatient (IN) | payer MEDICARE, SELFPAY ==
--- NOTE | ~2020-11-20 | XR_ITS ---
EXAMINATION: XR CHEST CLINICAL INFORMATION: Shortness of breath. Back pain. Left-sided chest pain. COMPARISON: Chest x-ray 10/31/2020 TECHNIQUE: Frontal view of the chest was obtained. 6:12 PM FINDINGS: No significant abnormality is noted involving the heart, lungs, mediastinum, bony thorax or soft tissues. XR/XR chest 1V IMPRESSION: Unremarkable examination.
--- NOTE | ~2020-11-20 | CT_ITS ---
EXAMINATION: CT ANGIOGRAM OF THE CHEST WITH AND WITHOUT CONTRAST (CT PULMONARY ANGIOGRAM FOR PE) CLINICAL INFORMATION: Reason for Exam r/o PE L side COMPARISON: CT of chest 04/04/2019. Chest x-ray 11/20/2020 TECHNIQUE: Prior to contrast administration, noncontrast localization images were obtained. Subsequently, multidetector volumetric imaging was performed from the thoracic inlet to below the diaphragms following the administration of 57 mL Omnipaque 350 intravenous contrast. No contrast reaction reported Sagittal, coronal, and MIP oblique sagittal reformatted images were obtained on the CT workstation, uploaded to PACS, and reviewed. This CT examination was performed using dose optimization techniques as appropriate, variously including the following: *Automated exposure control *Adjustment of mA and/or kV according to patient size (this includes techniques or standardized protocols for targeted exams where dose is matched to indication/reason for exam; i.e. extremities or head) *Use of iterative reconstruction technique Total exam dose-length product 182 mGy-cm FINDINGS: QUALITY OF STUDY/CONTRAST BOLUS: Satisfactory. PULMONARY ARTERIES: The exam is positive for pulmonary emboli. There are multiple segmental and subsegmental pulmonary emboli in the right lower lobe. There is a small embolus in the right upper lobe segmental branch. No significant pulmonary emboli in the left lung. THORACIC AORTA: No aneurysm or dissection. LUNG: No focal consolidation, nodules or masses. PLEURA: No pleural effusion or pneumothorax. MEDIASTINUM: Normal heart size. No pericardial effusion. No hilar or mediastinal lymphadenopathy. No evidence of septal bowing or right heart strain. CHEST WALL/AXILLA: No axillary or internal mammary lymphadenopathy. OSSEOUS STRUCTURES: No acute or suspicious osseous abnormality. UPPER ABDOMEN: Status post cholecystectomy. No reflux of contrast into the hepatic veins to suggest elevated right heart pressures. CT/CT angio chest PE protocol IMPRESSION: Pulmonary emboli in the right lung. No evidence of right heart strain. VTE: Positive. This critical result was discussed with Dr. Hurt on 12/17/2020, 10:10 PM and it was ascertained that the content and urgency of the report was understood at the time of direct communication.
--- NOTE | ~2020-11-20 | US_ITS ---
EXAMINATION: US VENOUS ULTRASOUND WITH DOPPLER LOWER EXTREMITY, BILATERAL CLINICAL INFORMATION: Pulmonary embolism. Assess for DVT. COMPARISON: CTA chest 11/20/2020 TECHNIQUE: Ultrasound of the deep veins is performed from the hip to the calf with compression sonography and color and pulse Doppler assessment. Spectral analysis with color-flow imaging is performed. FINDINGS: RIGHT: There is normal venous compression and respiratory variation and augmented flow. The visualized common femoral vein, superficial femoral vein, profunda femoral vein, popliteal vein, and the trifurcation region shows no evidence of deep venous thrombosis. No popliteal fossa cyst. LEFT: There is normal venous compression and respiratory variation and augmented flow. The visualized common femoral vein, superficial femoral vein, profunda femoral vein, popliteal vein, and the trifurcation region shows no evidence of deep venous thrombosis. No popliteal fossa cyst. US/US venous duplex LE BI IMPRESSION: No DVT demonstrated in the bilateral lower extremity.
[2020-11-20 16:44] VITALS: BP 131/73; BP 140/70; PULSE 77; PULSE 80; RESP 20; O2SAT 94; BMI 28.3
--- NOTE | 2020-11-20 17:29 | ECG_ITS ---
Test Reason : SOB Blood Pressure : / mmHG Vent. Rate : 078 BPM Atrial Rate : 078 BPM P-R Int : 126 ms QRS Dur : 066 ms QT Int : 382 ms P-R-T Axes : 033 -06 028 degrees QTc Int : 435 ms Normal sinus rhythm Normal ECG When compared with ECG of 31-OCT-2020 17:39, No significant change was found Referred By: Sosa Hurt Electronically Signed By:RAGHU MULLINS
[2020-11-20 17:52] VITALS: BP 137/72; PULSE 79; RESP 14; O2SAT 98
--- NOTE | 2020-11-20 17:53 | PC.NURSE ---
SITTING UP IN NO ACUTE DISTRESS, NO DYSPNEA NOTED AT REST O2 SAT REMAINS AT 96-97% RA
--- NOTE | 2020-11-20 18:03 | ED.SOB ---
HPI - SOB/Dyspnea General Chief Complaint: Dyspnea Stated Complaint: ?DIFFICULTY BREATHING Time Seen by Provider: 11/20/20 16:45 Source: patient Mode of arrival: ambulatory Limitations: no limitations History of Present Illness HPI Narrative: Patient comes to the emergency room complaining of shortness of breath and sharp back pain on the left side posterior aspect. Patient was diagnosed with COVID-19 in October 28. Patient states for the last 2 days she started complaining of worsening shortness of breath. On arrival of EMS to the patient's residency, patient was speaking in full sentences, no respiratory distress, oxygen saturation 98% on room air, vitals stable. On arrival to the ER patient remained stable. Related Data Home Medications Medication Instructions Recorded Confirmed benazepril 1 tab PO QAM 11/20/20 11/20/20 diltiazem HCl 1 cap PO BID 11/20/20 11/20/20 donepezil 1 tab PO BEDTIME 11/20/20 11/20/20 montelukast 1 tab PO BEDTIME 11/20/20 11/20/20 sertraline 2 tab PO QAM 11/20/20 11/20/20 Previous Rx's Medication Instructions Recorded azithromycin 250 mg PO DAILY 4 Days #4 tab 10/28/20 cefdinir 300 mg PO BID #14 cap 10/28/20 dexamethasone [Decadron] 6 mg PO DAILY #5 tab 10/31/20 loperamide [Anti-Diarrheal 2 mg PO Q6H PRN #14 cap 10/31/20 (loperamide)] ondansetron HCl [Zofran] 4 mg PO Q6H PRN #14 tab 10/31/20 Allergies Allergy/AdvReac Type Severity Reaction Status Date / Time oxycodone [OXYCODONE] Allergy Unknown UNKNOWN Verified 10/28/20 11:43 Review of Systems Review of Systems: Constitutional : No Weight loss, No Fever, No Chills, No Night Sweats, No Fatigue, No Malaise ENT/Mouth : No Hearing loss, No Ear Pain, No Nasal Congestion, No Sinus Pain, No Hoarseness, No sore throat, No Rhinorrhea, No Swallowing Difficulty Eyes: No Eye Pain, No Swelling, No Redness, No Foreign Body, No Discharge, No Vision Changes Cardiovascular : No Chest Pain, No SOB, No Dyspnea on Exertion, No Orthopnea, No Edema, No Palpitations Respiratory : Mild dry Cough, No Sputum, No Wheezing, No Smoke Exposure, complaining of dyspnea, worse with inspiration, pain in the upper back left side Gastrointestinal : No Nausea, No Vomiting, No Diarrhea, No Constipation, No abdominal Pain, No Hematochezia, No Melena Genitourinary : no irregular bleeding, No Dysuria, No Urinary Frequency, No Hematuria, No Urinary Incontinence, No Urgency, No Flank Pain, No Urinary Flow Changes, No Hesitancy Musculoskeletal : No joint pain, No Myalgias, No Joint Swelling Skin : No Skin Lesions, No rash Neuro : No Weakness, No Numbness, No Paresthesias, No Loss of Consciousness, No Dizziness, No Headache Psych : No Anxiety/Panic, No Depression, No SI/HI/AH/VH, No Social Issues, Heme/Lymph: No Bruising, No Bleeding,No Lymphadenopathy Endocrine : No Polyuria, No Polydipsia, No Temperature Intolerance PMFSH Past Medical History Medical History Aortic insufficiency Asthma Depression Diabetes GERD (gastroesophageal reflux disease) High cholesterol Hypertension NSTEMI (non-ST elevated myocardial infarction) Pancreatitis Family History Family History Other Family history non-contributory Social History Social History Household Members: Family Alcohol intake: never Advance Directives: No Advance Directives Information Provided: Yes Physical Exam Vital Signs: Vital Signs: Last Vital Signs Temp 98.6 F 11/21/20 00:00 Pulse 75 11/21/20 00:00 Resp 18 11/21/20 00:00 BP 137/71 11/21/20 00:00 Pulse Ox 95 11/21/20 00:00 Body Mass Index 28.3 Appearance: Alert. Oriented X3. No acute distress. Eyes: Pupils equal, round and reactive to light. ENT: Pharynx normal. Neck: Normal inspection. Neck supple. No lymph nodes noted. No crepitus CVS: Normal heart rate and rhythm. Pulses normal. Normal S1 and S2 Respiratory: No respiratory distress. Breath sounds normal. No Wheezing. No rales Abdomen: Soft and nontender. No rigidity. No distention. good BS x4 Skin: Skin warm and dry. Normal skin color. Normal skin turgor. Extremities: No lower extremity edema. No lower extremity edema. No Lacerations. No Rash Neuro: Oriented X 3. No motor deficit. No sensory deficit. Moving all extermities. No slurred speech. Course Course Course Narrative: Patient remains on room air, however she become short of breath with exertion. CTA of chest shows pulmonary embolism in the right lung with no right heart strain. Patient was given 1 milligram/kilogram of Lovenox. Patient being admitted. MDM - SOB/Dyspnea Lab Data Result diagrams: 11/20/20 18:12 11/20/20 18:11 Labs: Lab Results 11/20/20 11/20/20 11/20/20 Range/Units 18:11 18:11 18:11 WBC (4.8-10.8) X10*3/uL RBC (4.20-5.50) X10*6/uL Hgb (12.0-16.0) g/dl Hct (37-47) % MCV (80-98) fL MCH (27.0-33.0) pg MCHC (31.0-35.0) g/dl RDW (11.0-16.0) % Plt Count (160-400) X10*3/uL MPV (9.4-12.3) fL Immature Gran % (Auto) (0.0-0.4) % Neut % (Auto) (45-73) % Lymph % (Auto) (20-40) % [place] % (Auto) (2-11) % Eos % (Auto) (0-4) % Baso % (Auto) (0-2) % Lymph # (Auto) (1.2-4.9) X10*3/uL [place] # (Auto) (0.1-1.2) X10*3/uL Eos # (Auto) (0.0-0.4) X10*3/uL Baso # (Auto) (0.0-0.2) X10*3/uL Abs Immat Gran (auto) (0.00-0.03) X10*3/uL Absolute Neuts (auto) (2.0-8.3) X10*3/uL Absolute Nucleated RBC (0.0-0.012) X10*3/uL Nucleated RBC % (auto) (0.0-0.2) /100WBC D-Dimer 600 NG/ML Sodium 137 (135-145) mmol/L Potassium 3.8 (3.3-5.1) mmol/L Chloride 104 (96-108) mmol/L Carbon Dioxide 27 (22-29) mmol/L Anion Gap 10 L (12-20) BUN 19 H (9-16) mg/dL Creatinine 0.89 (0.5-1.4) mg/dL Estim Creat Clear Calc 44.2 Estimated GFR > 60 Random Glucose 138 H (60-115) mg/dL Calcium 8.8 (8.4-10.2) mg/dL B-Natriuretic Peptide 52 (<100) pg/mL 11/20/20 Range/Units 18:12 WBC 4.1 L (4.8-10.8) X10*3/uL RBC 4.17 L (4.20-5.50) X10*6/uL Hgb 12.0 (12.0-16.0) g/dl Hct 37.6 (37-47) % MCV 90.2 (80-98) fL MCH 28.8 (27.0-33.0) pg MCHC 31.9 (31.0-35.0) g/dl RDW 13.0 (11.0-16.0) % Plt Count 173 (160-400) X10*3/uL MPV 10.3 (9.4-12.3) fL Immature Gran % (Auto) 0.2 (0.0-0.4) % Neut % (Auto) 50.7 (45-73) % Lymph % (Auto) 34.7 (20-40) % [place] % (Auto) 11.7 H (2-11) % Eos % (Auto) 2.2 (0-4) % Baso % (Auto) 0.5 (0-2) % Lymph # (Auto) 1.4 (1.2-4.9) X10*3/uL [place] # (Auto) 0.5 (0.1-1.2) X10*3/uL Eos # (Auto) 0.1 (0.0-0.4) X10*3/uL Baso # (Auto) 0.0 (0.0-0.2) X10*3/uL Abs Immat Gran (auto) 0.01 (0.00-0.03) X10*3/uL Absolute Neuts (auto) 2.1 (2.0-8.3) X10*3/uL Absolute Nucleated RBC 0.000 (0.0-0.012) X10*3/uL Nucleated RBC % (auto) 0.0 (0.0-0.2) /100WBC D-Dimer NG/ML Sodium (135-145) mmol/L Potassium (3.3-5.1) mmol/L Chloride (96-108) mmol/L Carbon Dioxide (22-29) mmol/L Anion Gap (12-20) BUN (9-16) mg/dL Creatinine (0.5-1.4) mg/dL Estim Creat Clear Calc Estimated GFR Random Glucose (60-115) mg/dL Calcium (8.4-10.2) mg/dL B-Natriuretic Peptide (<100) pg/mL Imaging Data Chest x-ray: Radiologist's impression: FINDINGS: No significant abnormality is noted involving the heart, lungs, mediastinum, bony thorax or soft tissues. XR/XR chest 1V IMPRESSION: Unremarkable examination. CTA chest: Radiologist's impression: QUALITY OF STUDY/CONTRAST BOLUS: Satisfactory. PULMONARY ARTERIES: The exam is positive for pulmonary emboli. There are multiple segmental and subsegmental pulmonary emboli in the right lower lobe. There is a small embolus in the right upper lobe segmental branch. No significant pulmonary emboli in the left lung. THORACIC AORTA: No aneurysm or dissection. LUNG: No focal consolidation, nodules or masses. PLEURA: No pleural effusion or pneumothorax. MEDIASTINUM: Normal heart size. No pericardial effusion. No hilar or mediastinal lymphadenopathy. No evidence of septal bowing or right heart strain. CHEST WALL/AXILLA: No axillary or internal mammary lymphadenopathy. OSSEOUS STRUCTURES: No acute or suspicious osseous abnormality. UPPER ABDOMEN: Status post cholecystectomy. No reflux of contrast into the hepatic veins to suggest elevated right heart pressures. CT/CT angio chest PE protocol IMPRESSION: Pulmonary emboli in the right lung. No evidence of right heart strain. VTE: Positive. ECG Data Attestation: I personally reviewed and interpreted this ECG as follows: (Sinus rhythm, heart rate 78, no ST segment depression or elevation, no T-wave inversions) Discharge Plan Discharge Clinical Impression: Pulmonary embolism Qualifiers: Pulmonary embolism type: unspecified Chronicity: acute Acute cor pulmonale presence: without acute cor pulmonale Qualified Code(s): I26.99 - Other pulmonary embolism without acute cor pulmonale Patient Disposition: Admitted As Inpatient Interventions: Admission Worksheet (ED) Last Done: 11/21/20 01:47 Discharge Date/Time: 11/21/20 01:47
[2020-11-20 18:18] LABS: MANUAL DIFF FLAG NO
[2020-11-20 18:20] LABS: Basophils Percent Auto 0.5 % (0-2); Eosinophils Absolute Auto 0.1 X10*3/uL (0.0-0.4); Eosinophils Percent Auto 2.2 % (0-4); Hematocrit 37.6 % (37-47); Imm Gran Abs Auto 0.01 X10*3/uL (0.00-0.03); Imm Gran Pct Auto 0.2 % (0.0-0.4); Lymphocytes Absolute Auto 1.4 X10*3/uL (1.2-4.9); Lymphocytes Percent Auto 34.7 % (20-40); Mean Corpuscular HGB Conc 31.9 g/dl (31.0-35.0); Mean Corpuscular Hemoglobin 28.8 pg (27.0-33.0); Mean Corpuscular Volume 90.2 fL (80-98); Mean Platelet Volume 10.3 fL (9.4-12.3); Monocytes Absolute Auto 0.5 X10*3/uL (0.1-1.2); Monocytes Percent Auto 11.7 % (2-11); Neutrophils Absolute Auto 2.1 X10*3/uL (2.0-8.3); Neutrophils Percent Auto 50.7 % (45-73); Platelet Count 173 X10*3/uL (160-400); Red Blood Count 4.17 X10*6/uL (4.20-5.50); White Blood Count 4.1 X10*3/uL (4.8-10.8)
[2020-11-20 18:34] LABS: D Dimer 600 NG/ML
[2020-11-20 18:38] LABS: Anion Gap 10 (12-20); Blood Urea Nitrogen 19 mg/dL (9-16); Calcium 8.8 mg/dL (8.4-10.2); Carbon Dioxide 27 mmol/L (22-29); Chloride 104 mmol/L (96-108); Creatinine Clr Calc Pharmacy 44.2; Estimated Glomerular Filt Rate > 60; Glucose Random 138 mg/dL (60-115); Potassium 3.8 mmol/L (3.3-5.1); Sodium 137 mmol/L (135-145)
[2020-11-20 18:43] LABS: B Type Natriuretic Peptide 52 pg/mL (<100)
--- NOTE | 2020-11-20 19:54 | PC.NURSE ---
PT RESTING IN STETCHER ON MONITOR WITH HR 73. PT DENIES ANY COMPLAINTS. RESPIRATIONS EASY, N/L. SKIN W/D.
[2020-11-20 19:55] VITALS: BP 115/62; PULSE 79; RESP 16
--- NOTE | 2020-11-20 20:14 | PC.NURSE ---
IV EST FOR CT.
[2020-11-20] MEDS: iohexoL 350 MG/ML 100 ML INFUS..BTL IV (20:52)
[2020-11-20] MEDS: Acetaminophen 325 MG TABLET 650 MG PO (22:21)
[2020-11-20] MEDS: Enoxaparin Sodium 100 MG/ML SYRINGE 65 MG SUBCUT (22:27)
--- NOTE | 2020-11-20 22:50 | PM.IMHP ---
History of Present Illness Date of Service: 11/20/20 Chief Complaint: Chest pain 71-year-old female with a past medical history of hypertension, hyperlipidemia, diabetes, coronary artery disease, GERD, anxiety, depression, asthma, history of aortic insufficiency presented to the hospital with a chief complaint of chest pain. Patient mentioned that she was tested positive for COVID-19 pneumonia finished antibiotics and steroids in October 2020. Currently presents with shortness of breath and left-sided chest discomfort for the past 2 days. Intermittent in nature. Nonradiating no associated lightheadedness did dizziness or sweating. Denies any fever chills cough. Denies any GI or symptoms. Review of all other systems is negative except mentioned above ER course: Per ER team patient EKG was nonischemic patient was saturating well on room air does not appear to be in distress. D-dimer was elevated; CT chest showed right-sided pulmonary embolism no evidence of right heart strain. Started on Lovenox. Admitted to the hospital for further management. [facility] Medical History Aortic insufficiency Asthma Depression Diabetes GERD (gastroesophageal reflux disease) High cholesterol Hypertension NSTEMI (non-ST elevated myocardial infarction) Pancreatitis Family History Other Family history non-contributory Social History Household Members: Family and Other Housing: Apartment Alcohol intake: never Smoking Status: Never smoker Second Hand Smoke Exposure: No Use of substances other than those prescribed or required for medical reasons: No Advance Directives: Yes Advance Directives Information Provided: No Advance Directives on File: No service: No Current occupational status: unemployed and disabled Meds Allergies Allergy/AdvReac Type Severity Reaction Status Date / Time oxycodone [OXYCODONE] Allergy Unknown UNKNOWN Verified 10/28/20 11:43 Active Medications: Current Medications Generic Name Dose Route Start Last Admin Trade Name Freq PRN Reason Stop Dose Admin Acetaminophen 650 mg 11/20/20 22:44 Acetaminophen 325 Mg Tablet PO Q6H PRN Pain, Mild (Pain Scale 1-3) Enoxaparin Sodium 65 mg 11/20/20 22:45 Enoxaparin Sodium 120 Mg/0.8 Ml Syringe 1 mg/kg (65 mg) SUBCUT Q12H [facility] Sodium Chloride 3 ml 11/21/20 00:00 0.9 % Sodium Chloride Flush 3 Ml Syringe IVFLUSH QSHIFT [facility] Home Medications Medication Instructions Recorded Confirmed Last Taken Type benazepril 1 tab PO QAM 11/20/20 11/20/20 Unknown History diltiazem HCl 1 cap PO BID 11/20/20 11/20/20 Unknown History donepezil 1 tab PO BEDTIME 11/20/20 11/20/20 Unknown History montelukast 1 tab PO BEDTIME 11/20/20 11/20/20 Unknown History sertraline 2 tab PO QAM 11/20/20 11/20/20 Unknown History Physical Exam Vital Signs and Narrative: Vital Signs: Last Vital Signs Pulse 79 11/20/20 19:55 Resp 16 11/20/20 19:55 BP 115/62 11/20/20 19:55 Pulse Ox 98 11/20/20 17:52 Body Mass Index 28.3 Gen: Appears be in no acute distress HEENT: NCAT, Moist mucosa. Pulmonary: Vesicular breath sounds, fair air entry CVS: Murmur Abdomen: BS+, Soft, Nontender Extremities: Warm well perfused Neuro: Alert and awake. Results Labs CBC and Chem 7: 11/22/20 05:21 11/21/20 05:29 Labs: Laboratory Results - last 24 hr 11/20/20 11/20/20 11/20/20 18:11 18:11 18:11 MCV MCH MCHC RDW Plt Count MPV Immature Gran % (Auto) Neut % (Auto) Lymph % (Auto) [place] % (Auto) Eos % (Auto) Baso % (Auto) Lymph # (Auto) [place] # (Auto) Eos # (Auto) Baso # (Auto) Abs Immat Gran (auto) Absolute Neuts (auto) Absolute Nucleated RBC Nucleated RBC % (auto) D-Dimer 600 Anion Gap 10 L Estim Creat Clear Calc 44.2 Estimated GFR > 60 Random Glucose 138 H Calcium 8.8 B-Natriuretic Peptide 52 11/20/20 18:12 MCV 90.2 MCH 28.8 MCHC 31.9 RDW 13.0 Plt Count 173 MPV 10.3 Immature Gran % (Auto) 0.2 Neut % (Auto) 50.7 Lymph % (Auto) 34.7 [place] % (Auto) 11.7 H Eos % (Auto) 2.2 Baso % (Auto) 0.5 Lymph # (Auto) 1.4 [place] # (Auto) 0.5 Eos # (Auto) 0.1 Baso # (Auto) 0.0 Abs Immat Gran (auto) 0.01 Absolute Neuts (auto) 2.1 Absolute Nucleated RBC 0.000 Nucleated RBC % (auto) 0.0 D-Dimer Anion Gap Estim Creat Clear Calc Estimated GFR Random Glucose Calcium B-Natriuretic Peptide Imaging Radiologist's Impressions: Impressions Chest X-Ray 11/20/20 18:01 IMPRESSION: Unremarkable examination. Chest CTA 11/20/20 19:43 IMPRESSION: Pulmonary emboli in the right lung. No evidence of right heart strain. VTE: Positive. This critical result was discussed with Dr. Hurt on 12/17/2020, 10:10 PM and it was ascertained that the content and urgency of the report was understood at the time of direct communication. Assessment and Plan (1) Pulmonary embolism: Qualifiers: Acute cor pulmonale presence: without acute cor pulmonale Chronicity: acute Pulmonary embolism type: unspecified Qualified Code(s): I26.99 - Other pulmonary embolism without acute cor pulmonale Status: Acute 75-year-old female with a past medical history of hypertension, hyperlipidemia, diabetes, coronary artery disease, GERD, history of aortic insufficiency, recent history of COVID-19 pneumonia in October 2020 presented to the hospital today with a chief complaint of shortness of breath/LEs a with chest discomfort. Noted to have pulmonary embolism. Admitted to the hospital for further management. Pulmonary embolism: Continue Lovenox at therapeutic dose. For CT chest no evidence of right heart strain. Vitals are stable. Echocardiogram. History of COVID-19 pneumonia: Patient currently saturating well on room air. Will monitor. Hypertension/hyperlipidemia: Continue home medications Diabetes: Insulin sliding scale All other chronic conditions, home medications will be continued once med rec is done. Code status: Full code
[2020-11-20 23:07] VITALS: BP 156/78; PULSE 77; RESP 14; O2SAT 97
[2020-11-20 23:30] LABS: COVID-19 Test Negative (Negative)
[2020-11-21] VITALS (10 sets, daily range): BP systolic 104–143; BP diastolic 50–76; PULSE 67–81; RESP 16–18; TEMP 36.6–37.1; O2SAT 94–100
--- NOTE | 2020-11-21 00:12 | PC.NURSE ---
PT ON MONITOR, PT IS ESTONIAN SPEAKING AND NEEDS HATCH BOSS. PT ALERT, RESPIRATIONS N/L. UPDATED FAMILY PER PT'S REQUEST. IMC UNABLE TO TAKE REPORT AT THIS TIME, WILL RETURN CALL.
--- NOTE | 2020-11-21 00:48 | PC.NURSE ---
FLOOR UNABLE TO TAKE REPORT AT THIS TIME.
[2020-11-21] MEDS: 0.9 % Sodium Chloride Flush 3 ML SYRINGE IVFLUSH ×4 (01:10→21:36)
[2020-11-21] MEDS: Ibuprofen 400 MG TABLET PO (03:11)
[2020-11-21 06:06] LABS: MANUAL DIFF FLAG NO
[2020-11-21 06:55] LABS: Basophils Percent Auto 0.5 % (0-2); Eosinophils Absolute Auto 0.2 X10*3/uL (0.0-0.4); Eosinophils Percent Auto 4.3 % (0-4); Hematocrit 37.3 % (37-47); Hemoglobin 12.1 g/dl (12.0-16.0); Imm Gran Abs Auto 0.01 X10*3/uL (0.00-0.03); Imm Gran Pct Auto 0.2 % (0.0-0.4); Lymphocytes Absolute Auto 1.8 X10*3/uL (1.2-4.9); Lymphocytes Percent Auto 44.1 % (20-40); Mean Corpuscular HGB Conc 32.4 g/dl (31.0-35.0); Mean Corpuscular Hemoglobin 29.4 pg (27.0-33.0); Mean Corpuscular Volume 90.5 fL (80-98); Mean Platelet Volume 10.9 fL (9.4-12.3); Monocytes Absolute Auto 0.5 X10*3/uL (0.1-1.2); Monocytes Percent Auto 12.8 % (2-11); Neutrophils Absolute Auto 1.6 X10*3/uL (2.0-8.3); Neutrophils Percent Auto 38.1 % (45-73); Platelet Count 172 X10*3/uL (160-400); Red Blood Count 4.12 X10*6/uL (4.20-5.50); Red Cell Distribution Width 13.1 % (11.0-16.0); White Blood Count 4.2 X10*3/uL (4.8-10.8)
[2020-11-21 07:08] LABS: Glucose, Whole Blood 94 mg/dL (60-115)
[2020-11-21 07:12] LABS: Thyroid Stimulating Hormone 2.07 uIU/mL (0.32-4.0)
[2020-11-21 07:17] LABS: Blood Urea Nitrogen 19 mg/dL (9-16); Calcium 8.9 mg/dL (8.4-10.2); Creatinine Clr Calc Pharmacy 43.3; Estimated Glomerular Filt Rate > 60; Glucose Random 134 mg/dL (60-115)
[2020-11-21] MEDS: dilTIAZem HCL CD 120 MG CAP.ER.DEG PO ×2 (08:03→21:36)
[2020-11-21] MEDS: Sertraline HCL 100 MG TABLET 200 MG PO (08:03)
[2020-11-21 08:04] LABS: Anion Gap 13 (12-20); Carbon Dioxide 25 mmol/L (22-29); Chloride 107 mmol/L (96-108); Potassium 4.2 mmol/L (3.3-5.1); Sodium 141 mmol/L (135-145)
--- NOTE | 2020-11-21 09:30 | CA_ITS ---
Transthoracic Echocardiogram Patient (Last, First, Middle): Edilma Méndez, Gender: Female Date of : 1945 Age: 75 Procedure Date: 11/21/2020 Procedure Type: Transthoracic Echocardiogram Location: [facility] [place] Height: 149.86 cm Weight: 63.5 kg BSA: 1.58 m2 Heart Rate: bpm BP: 116 / 69 mmHg Technical Expert: OCTAVIO Referring MD: Saleem Ahmadi MD Symptoms: pulmonary embolism; Study Quality: Fair ECG Rhythm: Sinus Conclusions: - The left ventricular systolic function is normal. The visually estimated ejection fraction is between 60-65%. - There is mild calcification of the aortic valve. - There is mild to moderate tricuspid valve regurgitation. Findings Left Ventricle Normal left ventricular cavity size. There is normal left ventricular wall thickness. The left ventricular systolic function is normal. The visually estimated ejection fraction is between 60-65%. There is no evidence of regional wall motion abnormalities. Diastolic function is normal for age. Right Ventricle Normal right ventricular cavity size and systolic function. Atria Both atria are normal in size. Aortic Valve There is a normal trileaflet aortic valve. There is mild calcification of the aortic valve. There is no aortic valve stenosis. There is trace (trivial) aortic valve regurgitation. Mitral Valve The mitral valve appears normal. There is trace mitral valve regurgitation. There is no mitral valve stenosis. Pulmonic Valve The pulmonic valve was not well visualized. Tricuspid Valve There is mild to moderate tricuspid valve regurgitation. The pulmonary artery systolic pressure is normal. Great Vessels The aortic annulus, sinuses of valsalva, asc aorta, and aortic arch are normal in size. Venous The inferior vena cava is normal in size and collapses greater than 50% with inspiration. Pericardium/Pleural There is no evidence of pericardial effusion. Prior Study Comparison No significant change compared to prior study dated: 03/20/2020. Measurements 2D Linear Measurements IVSd: 0.90 0.6-0.9/0.6-1.0 cm LVIDd: 3.32 3.9-5.3/4.2-5.9 cm LVIDd Index: 2.10 2.4-3.2/2.2-3.1 cm/m2 LVIDs: 2.35 2.0-3.6 cm LVPWd: 0.90 0.7-1.1 cm Ao Root: 2.80 2.1-3.5 cm LA Diam: 2.60 2.7-3.8/3.0-4.0 cm LAIDs Index: 1.65 1.5-2.3 cm/m2 LV Mass: 101.53 67-162/88-224 g LV Mass Index: 64.26 43-95/49-115 g/m2 LVOT Diam: 1.90 3.0+(-)1.3 cm 2D Systolic Function EF 4C: 56.40 >55% EF 2C: 66.40 >55% EF BiP: 60.60 >55% Mitral Valve MV Pk E: 0.65 MV PK A: 0.97 MV Decel Time: 208.00 E/A: 0.70 E'Lateral: 7.54 E'Medial: 4.25 E/E' Med: 15.30 E/E' Lat: 8.60 PHT: 61.00 MVA PHT: 3.61 Decel Parke: 3.13 Aortic Valve AoV Pk Sebas: 1.48 AoV Mn Sebas: 0.99 AoV VTI: 0.31 AoV Pk Grad: 9.00 Aov Mn Grad: 4.00 JUDY Cont.VTI: 2.64 LVOT LVOT Pk Sebas: 1.32 LVOT Mn Sebas: 0.84 LVOT VTI: 0.28 LVOT Pk Grad: 7.00 LVOT Mn Grad: 3.00 LVOT Diam: 1.90 LVOT Area: 2.84 Diastolic Function MV Pk E: 0.65 MV Pk A: 0.97 E/A: 0.70 E'Medial: 4.25 E/E' Med: 15.30 E' Laterial: 7.54 E/E' Lat: 8.60 Tricuspid Valve TR Pk Sebas: 2.65 TR Pk Grad: 28.00 RA Press: 3.00 RVSP: 31.00 Great Vessels Aorta Ao Root-2D: 2.80 2.0-3.7 cm Ao Asc: 2.90 2.1-3.4 cm Ao Arch: 2.70 Updated in Other Vendor System with Status of Final Luigi Alicea MD electronically signed on 11/21/2020 4:26:24 PM with status of Final
[2020-11-21] MEDS: Enoxaparin Sodium 80 MG/0.8 ML SYRINGE 65 MG SUBCUT ×2 (10:30→21:32)
[2020-11-21 11:07] LABS: Glucose, Whole Blood 75 mg/dL (60-115)
--- NOTE | 2020-11-21 12:35 | HO.PM.IMPN ---
Subjective Subjective Date of Service: 11/21/20 Interval History: Patient seen and examined at bedside Patient was reporting chest pain Review of Systems Constitutional : No Weight loss, No Fever, No Chills, No Night Sweats, No Fatigue, No Malaise ENT/Mouth : No Hearing loss, No Ear Pain, No Nasal Congestion, No Sinus Pain, No Hoarseness, No sore throat, No Rhinorrhea, No Swallowing Difficulty Eyes: No Eye Pain, No Swelling, No Redness, No Foreign Body, No Discharge, No Vision Changes Cardiovascular : No Chest Pain, No SOB, No Dyspnea on Exertion, No Orthopnea, No Edema, No Palpitations Respiratory : Mild dry Cough, No Sputum, No Wheezing, No Smoke Exposure, complaining of dyspnea, worse with inspiration, pain in the upper back left side Gastrointestinal : No Nausea, No Vomiting, No Diarrhea, No Constipation, No abdominal Pain, No Hematochezia, No Melena Genitourinary : no irregular bleeding, No Dysuria, No Urinary Frequency, No Hematuria, No Urinary Incontinence, No Urgency, No Flank Pain, No Urinary Flow Changes, No Hesitancy Musculoskeletal : No joint pain, No Myalgias, No Joint Swelling Skin : No Skin Lesions, No rash Neuro : No Weakness, No Numbness, No Paresthesias, No Loss of Consciousness, No Dizziness, No Headache Psych : No Anxiety/Panic, No Depression, No SI/HI/AH/VH, No Social Issues, Heme/Lymph: No Bruising, No Bleeding,No Lymphadenopathy Endocrine : No Polyuria, No Polydipsia, No Temperature Intolerance Physical Exam Vital Signs: Vital Signs: Last Vital Signs Temp 97.8 F 11/21/20 12:00 Pulse 74 11/21/20 12:00 Resp 18 11/21/20 12:00 BP 143/72 H 11/21/20 12:00 Pulse Ox 97 11/21/20 12:00 Body Mass Index 28.3 Const: General: cooperative Orientation/consciousness: patient oriented x3 Neck: Neck: Yes normal visual inspection Resp: Effort & Inspection: normal respiratory effort Cardio: Jugular venous distension: no JVD Rhythm: regular rhythm GI: Inspection: Yes normal to inspection Neuro: General: patient oriented x3 Objective Data Current Medications Generic Name Dose Route Start Last Admin Trade Name Freq PRN Reason Stop Dose Admin Acetaminophen 650 mg 11/20/20 22:44 Acetaminophen 325 Mg Tablet PO Q6H PRN Pain, Mild (Pain Scale 1-3) Diltiazem HCl 120 mg 11/21/20 09:00 11/21/20 08:03 Diltiazem Hcl Cd 120 Mg Cap.Er.Deg PO 120 mg BID ANGEL Administration Protocol Donepezil HCl 5 mg 11/21/20 21:00 Donepezil Hcl 5 Mg Tablet PO BEDTIME ANGEL Enoxaparin Sodium 65 mg 11/21/20 10:00 11/21/20 10:30 Enoxaparin Sodium 80 Mg/0.8 Ml Syringe SUBCUT 65 mg Q12H ANGEL Administration Insulin Human Lispro 0 unit 11/21/20 07:30 11/21/20 12:04 Insulin Lispro 100 Unit/Ml 3 Ml Vial SUBCUT Not Given QIDACHS [facility] Protocol Lisinopril 10 mg 11/21/20 02:15 11/21/20 08:04 Lisinopril 10 Mg Tablet PO 10 mg DAILY ANGEL Administration Montelukast Sodium 10 mg 11/21/20 21:00 Montelukast Sodium 10 Mg Tablet PO BEDTIME ANGEL Sertraline HCl 200 mg 11/21/20 02:15 11/21/20 08:03 Sertraline Hcl 100 Mg Tablet PO 200 mg DAILY ANGEL Administration Sodium Chloride 3 ml 11/21/20 00:00 11/21/20 07:49 0.9 % Sodium Chloride Flush 3 Ml Syringe IVFLUSH 3 ml QSHIFT ANGEL Administration Labs CBC & Chem 7: 11/21/20 05:29 11/21/20 05:29 Assessment and Plan (1) Pulmonary embolism: Status: Acute Assessment and Plan: 75-year-old female with a past medical history of hypertension, hyperlipidemia, diabetes, coronary artery disease, GERD, history of aortic insufficiency, recent history of COVID-19 pneumonia in October 2020 presented to the hospital today with a chief complaint of shortness of breath/LEs a with chest discomfort. Noted to have pulmonary embolism. Admitted to the hospital for further management. Pulmonary embolism Reporting chest pain Continue Lovenox . Will check DVT study of lower extremity History of COVID-19 pneumonia: Patient currently saturating well on room air. Hypertension/hyperlipidemia: Continue home medications Diabetes: Continue Insulin sliding scale Monitor blood glucose DVT prophylaxis on Lovenox
--- NOTE | 2020-11-21 16:06 | MHC.CM.PN ---
CM SPOKE TO PTS DAUGHTER/HCP, LUKE AND SON-IN-LAW, GIAN VIA T/C ([phone]). LUKE SPEAKS BOTH LATVIAN AND [place]IAN, HOWEVER SHE REPORTS HER , GIAN IS MORE FLUENT AND THEREFORE, SHE PREFERRED HE BE INCLUDED IN THE CALL. 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 PER DISCUSSION, PT LIVES WITH HER AND LUKE VISITS HER 6-7 DAYS A WEEK. LUKE IS HER PAID CAREGIVER FOR 3 DAYS OF THE WEEK. PT HAS A NURSE FROM [facility] THAT VISITS Q 6 MONTHS. PT HAS BOTH A CANE AND A WALKER AT HOME AND USES EACH DEPENDING ON HOW SHE IS FEELING AND ENVIRONMENT. PT HAS A HCP ON FILE AND HER PCP IS RINA ANNE. IMM REVIEWED AND A COPY WILL BE MAILED TO HCP. LUKE REPORTS THE ADDRESS ON FILE IS INCORRECT. THE CORRECT ADDRESS IS [address] [place] [id number]. CURRENT DC PLAN IS HOME WITH RESUMPTION OF SERVICES. PTS SON-IN-LAW, GIAN,. WILL PROVIDE TRANSPORTATION
[2020-11-21 16:40] LABS: Glucose, Whole Blood 96 mg/dL (60-115)
[2020-11-21 20:51] LABS: Glucose, Whole Blood 119 mg/dL (60-115)
[2020-11-21] MEDS: Donepezil HCl 5 MG TABLET PO (21:35)
[2020-11-21] MEDS: Montelukast Sodium 10 MG TABLET PO (21:35)
[2020-11-21] MEDS: traZODone HCL 100 MG TABLET 200 MG PO (21:57)
[2020-11-22 03:02] VITALS: BP 110/59; PULSE 75; RESP 18; TEMP 36.7; O2SAT 96
[2020-11-22 05:58] LABS: MANUAL DIFF FLAG NO
[2020-11-22 06:03] LABS: Basophils Percent Auto 0.2 % (0-2); Eosinophils Absolute Auto 0.2 X10*3/uL (0.0-0.4); Eosinophils Percent Auto 4.1 % (0-4); Hematocrit 39.8 % (37-47); Hemoglobin 12.5 g/dl (12.0-16.0); Imm Gran Abs Auto 0.03 X10*3/uL (0.00-0.03); Imm Gran Pct Auto 0.7 % (0.0-0.4); Lymphocytes Absolute Auto 2.1 X10*3/uL (1.2-4.9); Mean Corpuscular HGB Conc 31.4 g/dl (31.0-35.0); Mean Corpuscular Hemoglobin 28.4 pg (27.0-33.0); Mean Corpuscular Volume 90.5 fL (80-98); Mean Platelet Volume 10.8 fL (9.4-12.3); Monocytes Absolute Auto 0.5 X10*3/uL (0.1-1.2); Monocytes Percent Auto 10.2 % (2-11); Neutrophils Absolute Auto 1.6 X10*3/uL (2.0-8.3); Neutrophils Percent Auto 36.8 % (45-73); Platelet Count 178 X10*3/uL (160-400); Red Cell Distribution Width 13.1 % (11.0-16.0); White Blood Count 4.4 X10*3/uL (4.8-10.8)
[2020-11-22 07:47] LABS: Glucose, Whole Blood 84 mg/dL (60-115)
[2020-11-22 07:50] VITALS: BP 116/56; PULSE 65; RESP 20; TEMP 35.7; O2SAT 95
[2020-11-22 07:59] VITALS: BP 116/56; PULSE 65
[2020-11-22] MEDS: dilTIAZem HCL CD 120 MG CAP.ER.DEG PO (07:59)
[2020-11-22] MEDS: Sertraline HCL 100 MG TABLET 200 MG PO (08:00)
[2020-11-22] MEDS: 0.9 % Sodium Chloride Flush 3 ML SYRINGE IVFLUSH (08:01)
[2020-11-22] MEDS: Enoxaparin Sodium 80 MG/0.8 ML SYRINGE 65 MG SUBCUT (09:52)
[2020-11-22 11:20] LABS: Glucose, Whole Blood 86 mg/dL (60-115)
[2020-11-22 11:35] VITALS: BP 101/59; PULSE 74; RESP 20; TEMP 37.1; O2SAT 96
--- NOTE | 2020-11-22 11:52 | PM.DS ---
DS: Providers Provider Date of Service: 11/22/20 Date of admission: 11/20/20 22:46 Primary care physician: Unknown Physician DS: Diagnosis Discharge Diagnosis (1) Pulmonary embolism: Status: Acute DS: Medications Discharge Medications Home Medications: Home Medications Medication Instructions Recorded Confirmed benazepril 1 tab PO QAM 11/20/20 11/20/20 diltiazem HCl 1 cap PO BID 11/20/20 11/20/20 donepezil 1 tab PO BEDTIME 11/20/20 11/20/20 montelukast 1 tab PO BEDTIME 11/20/20 11/20/20 sertraline 2 tab PO QAM 11/20/20 11/20/20 Previous Rx's Medication Instructions Recorded azithromycin 250 mg PO DAILY 4 Days #4 tab 10/28/20 cefdinir 300 mg PO BID #14 cap 10/28/20 dexamethasone [Decadron] 6 mg PO DAILY #5 tab 10/31/20 loperamide [Anti-Diarrheal 2 mg PO Q6H PRN #14 cap 10/31/20 (loperamide)] ondansetron HCl [Zofran] 4 mg PO Q6H PRN #14 tab 10/31/20 apixaban [Eliquis] 5 mg PO BID #90 tab 11/22/20 DS: Summary Hospital Course Hospital Course: HPI 71-year-old female with a past medical history of hypertension, hyperlipidemia, diabetes, coronary artery disease, GERD, anxiety, depression, asthma, history of aortic insufficiency presented to the hospital with a chief complaint of chest pain. Patient mentioned that she was tested positive for COVID-19 pneumonia finished antibiotics and steroids in October 2020. Currently presents with shortness of breath and left-sided chest discomfort for the past 2 days. Intermittent in nature. Nonradiating no associated lightheadedness did dizziness or sweating. Denies any fever chills cough. Denies any GI or symptoms. Review of all other systems is negative except mentioned above ER course: Per ER team patient EKG was nonischemic patient was saturating well on room air does not appear to be in distress. D-dimer was elevated; CT chest showed right-sided pulmonary embolism no evidence of right heart strain. Started on Lovenox. Admitted to the hospital for further management. Hospital course 75-year-old female admitted with chest pain found to have pulmonary emboli, patient was recently treated for COVID pneumonia, patient was started on Lovenox, patient was not hypoxic, chest pain was resolved, patient was stable discharged home on Eliquis 10 mg b.i.d. for 7 days and then 5 mg b.i.d., patient was provided with 30 days coupon , DVT study bilateral lower extremity was negative, patient was stable discharged home on p.o. Eliquis. Patient was discharged with visiting nurse for medication management. Time Spent with Patient Time attestation: Total time spent providing and/or coordinating discharge services: Discharge coordination time: Greater than 30 minutes Physical Exam Vital Signs: Vital Signs: Last Vital Signs Temp 98.7 F 11/22/20 11:35 Pulse 74 11/22/20 11:35 Resp 20 11/22/20 11:35 BP 101/59 L 11/22/20 11:35 Pulse Ox 96 11/22/20 11:35 Body Mass Index 28.3 DS: Data Data Completed and Pending Labs on day of discharge: Laboratory Results - last 24 hr 11/21/20 11/21/20 11/22/20 16:17 20:40 05:21 WBC 4.4 L RBC 4.40 Hgb 12.5 Hct 39.8 MCV 90.5 MCH 28.4 MCHC 31.4 RDW 13.1 Plt Count 178 MPV 10.8 Immature Gran % (Auto) 0.7 H Neut % (Auto) 36.8 L Lymph % (Auto) 48.0 H [place] % (Auto) 10.2 Eos % (Auto) 4.1 H Baso % (Auto) 0.2 Lymph # (Auto) 2.1 [place] # (Auto) 0.5 Eos # (Auto) 0.2 Baso # (Auto) 0.0 Abs Immat Gran (auto) 0.03 Absolute Neuts (auto) 1.6 L Absolute Nucleated RBC 0.000 Nucleated RBC % (auto) 0.0 POC Glucose 96 119 H 11/22/20 11/22/20 07:28 10:58 WBC RBC Hgb Hct MCV MCH MCHC RDW Plt Count MPV Immature Gran % (Auto) Neut % (Auto) Lymph % (Auto) [place] % (Auto) Eos % (Auto) Baso % (Auto) Lymph # (Auto) [place] # (Auto) Eos # (Auto) Baso # (Auto) Abs Immat Gran (auto) Absolute Neuts (auto) Absolute Nucleated RBC Nucleated RBC % (auto) POC Glucose 84 86 Discharge Plan Discharge Anticipated Discharge Date/Time: 11/22/20 11:47 Patient Disposition: Home Health Service Referrals: [facility] [Outside] Physician,Unknown [Primary Care Provider] - Discharge Medications: New Eliquis 5 mg tablet 5 mg PO BID Qty: 90 RF: 0 Continued cefdinir 300 mg capsule 300 mg PO BID Qty: 14 RF: 0 azithromycin 250 mg tablet 250 mg PO DAILY 4 Days Qty: 4 RF: 0 ondansetron HCl [Zofran] 4 mg tablet 4 mg PO Q6H PRN (Reason: nausea and vomiting) Qty: 14 RF: 0 loperamide [Anti-Diarrheal (loperamide)] 2 mg capsule 2 mg PO Q6H PRN (Reason: loose stool) Qty: 14 RF: 0 dexamethasone [Decadron] 6 mg tablet 6 mg PO DAILY Qty: 5 RF: 0 donepezil 5 mg tablet 1 tab PO BEDTIME RF: 0 sertraline 100 mg tablet 2 tab PO QAM RF: 0 diltiazem HCl 120 mg capsule,extended release 12 hr 1 cap PO BID RF: 0 montelukast 10 mg tablet 1 tab PO BEDTIME RF: 0 benazepril 10 mg tablet 1 tab PO QAM RF: 0 Discharge Orders: Discharge Order (Routine); Ordered 11/22/20 Ordered By: Rishabh Doherty Diet: diabetic diet Activity on Discharge: As tolerated Stand Alone Forms: Patient Portal Discharge page Care Plan Goals: treat PE Health Concerns: PE Plan of Treatment: see above Discharge Date/Time: 11/22/20 16:26
--- NOTE | 2020-11-22 13:02 | MHC.CM.PN ---
CM received a message today from pts managed insurance plan liaison, Candice who indicated they had concern that the pt may not be taking her meds as prescribed due to being unable to read/write. She requested a referral be made for a VNA. A referral was made to [facility] for fpc. [facility] accepted the referral and confirmed they would be able to provide teaching and assist pt in filling a med box however they are not able to do daily medication administration. Pt will DC home today with resumption of [employer] [employer] services and new [facility] services for fpc. Pts family will provide transportation
[2020-11-22 15:16] VITALS: BP 105/56; PULSE 65; RESP 18; TEMP 37.1; O2SAT 97
[2020-11-22 16:01] LABS: Glucose, Whole Blood 84 mg/dL (60-115)
--- NOTE | 2020-11-22 16:12 | P.F2F_ITS ---
Service Date Service Date: 11/22/20 Encounter Date of encounter: 11/22/20 Reasons for Services Reason for detention: medication management Homebound: Leaving the home is medically contraindicated at this time without the asist of a device and/or another person due th the listed conditions above and below. Certification: Based on the above findings, I certify that this patient is confined to the home and needs intermittent detention care, physical therapy and/or speech therapy, or continues to need occupational therapy. The p jacquelyn is under my care, and I have initiated the establishment of the plan of care. The patient will be followed by a physician who will periodically review the plan of care.
== END 2020-11-22 16:26 | disposition home health service (06) | DRG 176 ==
LOC: HO.ED 22:47 → HO.IMC 23:53
PROVIDERS: Admitting Provider Hospitalist; Emergency Provider Emergency Medicine; Visit Provider Internal Medicine
DX: I26.99 Other pulmonary embolism without acute cor pulmonale (principal); E78.5 Hyperlipidemia, unspecified; I25.10 Atherosclerotic heart disease of native coronary artery without angina pectoris; I10 Essential (primary) hypertension; K21.9 Gastro-esophageal reflux disease without esophagitis; F41.9 Anxiety disorder, unspecified; Z20.822 Contact with and (suspected) exposure to COVID-19; Z86.16 Personal history of COVID-19; Z79.01 Long term (current) use of anticoagulants; Z79.899 Other long term (current) drug therapy
CPT/HCPCS: 36415; 71045; 71275; 80048; 82947; 83880; 84443; 85025; 85379; 87635; 93005; 93306; 93970; 96372; 99285; J1650; Q9967

== ENCOUNTER 2020-11-23 09:01 | Emergency (ER) | payer MEDICARE, SELFPAY ==
--- NOTE | ~2020-11-23 | XR_ITS ---
EXAMINATION: XR CHEST CLINICAL INFORMATION: Chest pain. COMPARISON: 11/20/[address] CT angiogram. TECHNIQUE: Frontal view of the chest was obtained. FINDINGS: No significant abnormality is noted involving the heart, lungs, mediastinum, bony thorax or soft tissues. XR/XR chest 1V IMPRESSION: No acute cardiopulmonary process. No significant change.
[2020-11-23 09:10] VITALS: BP 146/69; PULSE 70; RESP 16; TEMP 36.9; O2SAT 95; BMI 21.2
--- NOTE | 2020-11-23 09:18 | ED.EPISTAXIS ---
History of Present Illness General Chief Complaint: Epistaxis Stated Complaint: nose bleed Time Seen by Provider: 11/23/20 09:17 Source: patient Mode of arrival: ambulatory Limitations: language barrier (interpreter for the deaf present) History of Present Illness HPI Narrative: 75-year-old female with a past medical history of hypertension, hyperlipidemia, diabetes, coronary artery disease, GERD, history of aortic insufficiency, recent history of COVID-19 pneumonia in October 2020 admitted to this facility 3 days ago for chest pain found to have multiple segmental and subsegmental pulmonary emboli in the right lower lobe. There is a small embolus in the right upper lobe segmental branch. No significant pulmonary emboli in the left lung. No evidence of right heart strain. Started on Eliquis and discharged home yesterday states she was doing very well here she did not have any episodes of nose bleed here but early hours of this morning she noticed slight blood coming from the nostril. States she tried to put pressure on home it was stopped but then continued. She otherwise denies any headache , shortness of breath. States she had a bowel movement this morning that was brown in color. Location: Yes left naris Onset/current episode: Yes hour(s) Duration: Yes intermittent Context: Yes other anticoagulant use (Eliquis ) Treatment prior to arrival: Yes nose pinching Related Data Home Medications Medication Instructions Recorded Confirmed benazepril 1 tab PO QAM 11/20/20 11/20/20 diltiazem HCl 1 cap PO BID 11/20/20 11/20/20 donepezil 1 tab PO BEDTIME 11/20/20 11/20/20 montelukast 1 tab PO BEDTIME 11/20/20 11/20/20 sertraline 2 tab PO QAM 11/20/20 11/20/20 Previous Rx's Medication Instructions Recorded azithromycin 250 mg PO DAILY 4 Days #4 tab 10/28/20 cefdinir 300 mg PO BID #14 cap 10/28/20 dexamethasone [Decadron] 6 mg PO DAILY #5 tab 10/31/20 loperamide [Anti-Diarrheal 2 mg PO Q6H PRN #14 cap 10/31/20 (loperamide)] ondansetron HCl [Zofran] 4 mg PO Q6H PRN #14 tab 10/31/20 apixaban [Eliquis] 5 mg PO BID #90 tab 11/22/20 amoxicillin-pot clavulanate 1 tab PO BID 5 Days #10 tab 11/23/20 [Augmentin] hydrocodone-acetaminophen 1 tab PO BID PRN 3 Days #10 tab 11/23/20 Allergies Allergy/AdvReac Type Severity Reaction Status Date / Time oxycodone [OXYCODONE] Allergy Unknown UNKNOWN Verified 10/28/20 11:43 Review of Systems Review of Systems: Constitutional: No Weight loss, No Fever, No Chills, No Night Sweats, No Fatigue, No Malaise ENT/Mouth: No Hearing loss, No Ear Pain, No Nasal Congestion, No Sinus Pain, No Hoarseness, No sore throat, No Rhinorrhea, No Swallowing Difficulty Eyes: No Eye Pain, No Swelling, No Redness, No Foreign Body, No Discharge, No Vision Changes Cardiovascular: No Chest Pain, No SOB, No Dyspnea on Exertion, No Orthopnea, No Edema, No Palpitations Respiratory: No Cough, No Sputum, No Wheezing, No Dyspnea Gastrointestinal: No Nausea, No Vomiting, No Diarrhea, No Constipation, No abdominal Pain, No Hematochezia, No Melena Genitourinary: no irregular bleeding, No Dysuria, No Urinary Frequency, No Hematuria, No Urinary Incontinence, No Urgency, No Flank Pain, No Urinary Flow Changes, No Hesitancy Musculoskeletal: No joint pain, No Myalgias, No Joint Swelling Skin: No Skin Lesions, No rash Neuro: No Weakness, No Numbness, No Paresthesias, No Loss of Consciousness, No Dizziness, No Headache Psych: No Social Issues Heme/Lymph: No Bruising, No Lymphadenopathy Endocrine: No Polyuria, No Polydipsia, No Temperature Intolerance Yes all other systems are reviewed and are negative [facility] Past Medical History Medical History Aortic insufficiency Asthma Depression Diabetes GERD (gastroesophageal reflux disease) High cholesterol Hypertension NSTEMI (non-ST elevated myocardial infarction) Pancreatitis Family History Family History Other Family history non-contributory Social History Social History Household Members: Family and Other Housing: Apartment Alcohol intake: never Smoking Status: Never smoker Second Hand Smoke Exposure: No Use of substances other than those prescribed or required for medical reasons: No Advance Directives: Yes Advance Directives Information Provided: No Advance Directives on File: No service: No Current occupational status: unemployed and disabled Physical Exam Vital Signs: Vital Signs: Last Vital Signs Temp 98.1 F 11/23/20 11:59 Pulse 64 11/23/20 11:59 Resp 15 11/23/20 11:59 BP 138/58 L 11/23/20 11:59 Pulse Ox 97 11/23/20 11:59 Body Mass Index 21.2 Reviewed Const: General: cooperative and healthy appearing; No acute distress or intoxicated appearing Nutritional Appearance: average body habitus Orientation/consciousness: patient oriented x3 HENMT: Head: Yes normal to inspection Ears: hearing grossly normal bilaterally General nose exam: Epistaxis present (Left nostril and Jeffrey of lip there is some dry blood. ) and Nasal polyp present (Left with slight flank blood) bilateral Face and sinus: Yes normal facial exam Mouth: Normal oral and palatal mucosa present, lip normal, tongue normal and oropharynx normal Throat: Yes posterior oropharynx normal Eyes: General: appearance normal, both eyes and all related structures Visual Morton: normal visual morton by confrontation Neck: Neck: Yes normal visual inspection, Yes no meningeal signs, No positive Brudzinski's sign, No positive Kernig's sign and No tender Thyroid: Thyroid normal Chest: Chest palpation & inspection: normal inspection of the chest Resp: Effort & Inspection: normal respiratory effort Auscultation: clear to auscultation bilaterally Cardio: Jugular venous distension: no JVD Rhythm: regular rhythm Heart sounds: S1 normal heart sound present and S2 normal heart sound present GI: Inspection: Yes normal to inspection Palpation (GI): Soft to palpation Percussion: Yes normal to percussion Auscultation: normal bowel sounds : General: Yes no CVA tenderness Back/Spine/Pelvis: Back: no CVA tenderness Skin: General skin exam: no rashes or lesions noted Neuro: General: patient oriented x3, gait normal, tone normal, moves all extremities, Normal light touch and pain sensation, no meningeal signs, no focal motor deficits and CN's II-XI intact bilaterally Cranial nerves: Yes CN's II-XII intact bilaterally Cognition (Neuro): normal cognition Speech: Other speech findings present (Neuro) (WNL) Gait exam (Neuro): Normal gait present Motor exam (neuro): 5/5 motor strength present throughout Sensory Exam: Normal double simultaneous stimulation for sensation Extrem: General: Yes normal to inspection Psych: Appearance: grossly normal NIH Stroke Scale Internal: Initial- Upon Arrival Level of Consciousness: Alert Level of Consciousness Questions: Answers both questions correctly Level of Consciousness Commands: Performs both tasks correctly Best Gaze: Normal Visual: No visual loss Facial Palsy: Normal Motor Arm (Right): No drift Motor Arm (Left): No drift Motor Leg (Right): No drift Motor Leg (Left): No drift Limb Ataxia: Absent Sensory: Normal Best Language: No aphasia Dysarthia: Normal Extinction and Inattention: No abnormality Score: 0 Course Reevaluation(s) Reevaluation #1: 0935 Directly after exam color to bedside as she felt like she was bleeding for nostril upon examination she now has instead of dried blood there is some missy blood at the base of the nose on examination the left nostril appears to be bleeding nasal polyp and little's area. Site suctioned and packed with gauze with tranexamic acid. Bleeding controlled this time. Reevaluation #2: 1000 Noted to have slight weeping on top of the gauze and bridge of nose even with half an hour of T-max. Area suction and she would like to avoid any nasal packing currently no active bleeding after suction will continue to monitor. H&H stable. Reevaluation #3: 1045 Started to have bleeding again very slight amount just a few drops, source of bleeding clear visualized and cauterized with silver nitrate stick. She did inquire about going home after this I told her that given that she is on anticoagulants it would prefer to observe for to avoid return and any further complications. Additional Reevaluation(s): 1140 Started to bleed again from the left nostril. At this point have some tried to suction several times as well as T-max and cauterization. Consistent with anterior 5.5 nasal packing used to pack left nostril and inflated with 8 cc. Tolerated well. Plan for additional observation time if patient remained stable and no further bleeding she she will be discharged with follow-up. 1250 Has been comfortable without any further bleeding after nasal tampon packing. No posterior pharynx bleeding. Repeat CBC stable, electrolytes with a slightly elevated K this is likely from hemolyzed back as she was a difficult stick. Visually stool brownish appearing on occult stool however weakly positive on stool card. At this point patient is stable will discharge home with short course Augmentin given her multiple comorbidities and recent illness and pain medication and to return in 48 hours for packing removal here. Did have a discussion regarding follow-up with ENT. Consultations Consultation #1: Attending Dr. Hurt Consultation #2: I did have a brief discussion with hospitalist Dr. Doherty if patient continued to have issues with epistaxis requiring observation however this institution is not equipped with in-house ENT follow-up pain for for center with appropriate level care if needed. Procedures Epistaxis Control Nostril: Yes left Nose prepped with: Yes other (tmx ) Direct inspection: Yes anterior source identified Direct inspection method: Yes nasal speculum Clots removed by: Yes suction Epistaxis treatment: Yes TXA soaked gauze, Yes silver nitrate cautery and Yes nasal tampon Results of treatment: Yes bleeding controlled Complications: Yes other (Stepwise approach from suction to TSA to silver nitrate to nasal tampo) MDM - Epistaxis Lab Data Result diagrams: 11/23/20 13:00 11/23/20 11:57 Labs: Lab Results 11/23/20 11/23/20 11/23/20 Range/Units 10:28 10:28 10:28 WBC 4.1 L (4.8-10.8) X10*3/uL RBC 4.30 (4.20-5.50) X10*6/uL Hgb 12.3 (12.0-16.0) g/dl Hct 38.8 (37-47) % MCV 90.2 (80-98) fL MCH 28.6 (27.0-33.0) pg MCHC 31.7 (31.0-35.0) g/dl RDW 13.2 (11.0-16.0) % Plt Count 181 (160-400) X10*3/uL MPV 10.5 (9.4-12.3) fL Immature Gran % (Auto) 0.5 H (0.0-0.4) % Neut % (Auto) 57.3 (45-73) % Lymph % (Auto) 28.2 (20-40) % [place] % (Auto) 12.0 H (2-11) % Eos % (Auto) 1.5 (0-4) % Baso % (Auto) 0.5 (0-2) % Lymph # (Auto) 1.2 (1.2-4.9) X10*3/uL [place] # (Auto) 0.5 (0.1-1.2) X10*3/uL Eos # (Auto) 0.1 (0.0-0.4) X10*3/uL Baso # (Auto) 0.0 (0.0-0.2) X10*3/uL Abs Immat Gran (auto) 0.02 (0.00-0.03) X10*3/uL Absolute Neuts (auto) 2.3 (2.0-8.3) X10*3/uL Absolute Nucleated RBC 0.000 (0.0-0.012) X10*3/uL Nucleated RBC % (auto) 0.0 (0.0-0.2) /100WBC PT 15.7 H (10.8-13.0) SEC INR 1.3 H (0.9-1.1) APTT 37.4 (24.1-38.0) SEC Sodium (135-145) mmol/L Potassium (3.3-5.1) mmol/L Chloride (96-108) mmol/L Carbon Dioxide (22-29) mmol/L Anion Gap (12-20) BUN (9-16) mg/dL Creatinine (0.5-1.4) mg/dL Estim Creat Clear Calc Estimated GFR Random Glucose (60-115) mg/dL Calcium (8.4-10.2) mg/dL Total Bilirubin (0.0-1.0) mg/dL AST (5-31) U/L ALT (0-31) U/L Alkaline Phosphatase (39-117) U/L Troponin I High Sens 6.0 (<3.5-17.0) ng/L Total Protein (6.5-8.0) g/dL Albumin (3.5-5.0) g/dL Stool Occult Blood (NEG) 11/23/20 11/23/20 11/23/20 Range/Units 11:57 12:02 13:00 WBC 4.6 L (4.8-10.8) X10*3/uL RBC 4.41 (4.20-5.50) X10*6/uL Hgb 12.7 (12.0-16.0) g/dl Hct 39.8 (37-47) % MCV 90.2 (80-98) fL MCH 28.8 (27.0-33.0) pg MCHC 31.9 (31.0-35.0) g/dl RDW 13.1 (11.0-16.0) % Plt Count 178 (160-400) X10*3/uL MPV 10.7 (9.4-12.3) fL Immature Gran % (Auto) 0.4 (0.0-0.4) % Neut % (Auto) 51.5 (45-73) % Lymph % (Auto) 35.4 (20-40) % [place] % (Auto) 10.3 (2-11) % Eos % (Auto) 2.2 (0-4) % Baso % (Auto) 0.2 (0-2) % Lymph # (Auto) 1.6 (1.2-4.9) X10*3/uL [place] # (Auto) 0.5 (0.1-1.2) X10*3/uL Eos # (Auto) 0.1 (0.0-0.4) X10*3/uL Baso # (Auto) 0.0 (0.0-0.2) X10*3/uL Abs Immat Gran (auto) 0.02 (0.00-0.03) X10*3/uL Absolute Neuts (auto) 2.4 (2.0-8.3) X10*3/uL Absolute Nucleated RBC 0.000 (0.0-0.012) X10*3/uL Nucleated RBC % (auto) 0.0 (0.0-0.2) /100WBC PT (10.8-13.0) SEC INR (0.9-1.1) APTT (24.1-38.0) SEC Sodium 141 (135-145) mmol/L Potassium 5.3 H D (3.3-5.1) mmol/L Chloride 109 H (96-108) mmol/L Carbon Dioxide 26 (22-29) mmol/L Anion Gap 11 L (12-20) BUN 21 H (9-16) mg/dL Creatinine 0.75 (0.5-1.4) mg/dL Estim Creat Clear Calc 55.9 Estimated GFR > 60 Random Glucose 80 D (60-115) mg/dL Calcium 8.8 (8.4-10.2) mg/dL Total Bilirubin 0.4 (0.0-1.0) mg/dL AST 27 (5-31) U/L ALT 25 (0-31) U/L Alkaline Phosphatase 99 (39-117) U/L Troponin I High Sens (<3.5-17.0) ng/L Total Protein 6.6 (6.5-8.0) g/dL Albumin 3.7 (3.5-5.0) g/dL Stool Occult Blood POS (NEG) Discharge Plan Discharge Clinical Impression: Epistaxis Patient Disposition: Home, Self-Care Instructions: Apixaban (By mouth), Nosebleed (ED) Additional Instructions: Cold compresses to the nose Leave the packing in place and return in 48 hours for packing removal Return sooner if any concerns or worsening symptoms Continue take her anticoagulant medication prescribed Thank you Prescriptions: New amoxicillin-pot clavulanate [Augmentin] 875-125 mg tablet 1 tab PO BID 5 Days Qty: 10 RF: 0 hydrocodone-acetaminophen 5-300 mg tablet 1 tab PO BID PRN (Reason: pain) 3 Days Qty: 10 RF: 0 No Action cefdinir 300 mg capsule 300 mg PO BID Qty: 14 RF: 0 azithromycin 250 mg tablet 250 mg PO DAILY 4 Days Qty: 4 RF: 0 ondansetron HCl [Zofran] 4 mg tablet 4 mg PO Q6H PRN (Reason: nausea and vomiting) Qty: 14 RF: 0 loperamide [Anti-Diarrheal (loperamide)] 2 mg capsule 2 mg PO Q6H PRN (Reason: loose stool) Qty: 14 RF: 0 dexamethasone [Decadron] 6 mg tablet 6 mg PO DAILY Qty: 5 RF: 0 donepezil 5 mg tablet 1 tab PO BEDTIME RF: 0 sertraline 100 mg tablet 2 tab PO QAM RF: 0 diltiazem HCl 120 mg capsule,extended release 12 hr 1 cap PO BID RF: 0 montelukast 10 mg tablet 1 tab PO BEDTIME RF: 0 benazepril 10 mg tablet 1 tab PO QAM RF: 0 Eliquis 5 mg tablet 5 mg PO BID Qty: 90 RF: 0 Referrals: Edinson Ngo, MACHINE [employer]OL [employer]ESSER [Emergency Midlevel Provider] - 2 days (Nasal packing) Oleg Weinstein [Physician] - 2 days (Nasal packing removal)
--- NOTE | 2020-11-23 09:35 | ECG_ITS ---
Test Reason : SOB Blood Pressure : / mmHG Vent. Rate : 068 BPM Atrial Rate : 068 BPM P-R Int : 134 ms QRS Dur : 064 ms QT Int : 394 ms P-R-T Axes : 033 000 013 degrees QTc Int : 418 ms Normal sinus rhythm Normal ECG When compared with ECG of 20-NOV-2020 16:37, No significant change was found Referred By: Kori Monteiro Electronically Signed By:RAGHU MULLINS
[2020-11-23 10:32] LABS: MANUAL DIFF FLAG NO
[2020-11-23 10:35] LABS: Basophils Percent Auto 0.5 % (0-2); Eosinophils Absolute Auto 0.1 X10*3/uL (0.0-0.4); Eosinophils Percent Auto 1.5 % (0-4); Hematocrit 38.8 % (37-47); Hemoglobin 12.3 g/dl (12.0-16.0); Imm Gran Abs Auto 0.02 X10*3/uL (0.00-0.03); Imm Gran Pct Auto 0.5 % (0.0-0.4); Lymphocytes Absolute Auto 1.2 X10*3/uL (1.2-4.9); Lymphocytes Percent Auto 28.2 % (20-40); Mean Corpuscular HGB Conc 31.7 g/dl (31.0-35.0); Mean Corpuscular Hemoglobin 28.6 pg (27.0-33.0); Mean Corpuscular Volume 90.2 fL (80-98); Mean Platelet Volume 10.5 fL (9.4-12.3); Monocytes Absolute Auto 0.5 X10*3/uL (0.1-1.2); Neutrophils Absolute Auto 2.3 X10*3/uL (2.0-8.3); Neutrophils Percent Auto 57.3 % (45-73); Platelet Count 181 X10*3/uL (160-400); Red Cell Distribution Width 13.2 % (11.0-16.0); White Blood Count 4.1 X10*3/uL (4.8-10.8)
[2020-11-23 10:41] LABS: INTERNATIONAL NORM RATIO 1.3 (0.9-1.1); Prothrombin Time 15.7 SEC (10.8-13.0)
[2020-11-23 10:44] LABS: Partial Thromboplastin Time 37.4 SEC (24.1-38.0)
[2020-11-23] MEDS: Tranexamic Acid 1,000 MG/10 ML VIAL 500 MG INTRANASAL (10:49)
[2020-11-23 11:59] VITALS: BP 138/58; PULSE 64; RESP 15; TEMP 36.7; O2SAT 97
[2020-11-23 12:10] LABS: OBS Int Ctl Valid YES; OBS1 POS (NEG)
[2020-11-23] MEDS: Silver Nitrate Applicator STICK..EA. 1 APPL TOPICAL (12:11)
--- NOTE | 2020-11-23 12:24 | PC.NURSE ---
epistaxis continues after multiple interventions by provider. nasal packing placed att by provider. wctm and repeat cbc to ensure hemodynamic stability and probable dc if all is clear. medicated per emar.
[2020-11-23 12:34] LABS: Alanine Aminotransferase 25 U/L (0-31); Albumin Level 3.7 g/dL (3.5-5.0); Alkaline Phosphatase 99 U/L (39-117); Anion Gap 11 (12-20); Aspartate Amino Transferase 27 U/L (5-31); Bilirubin Total 0.4 mg/dL (0.0-1.0); Blood Urea Nitrogen 21 mg/dL (9-16); Calcium 8.8 mg/dL (8.4-10.2); Carbon Dioxide 26 mmol/L (22-29); Chloride 109 mmol/L (96-108); Creatinine Clr Calc Pharmacy 55.9; Estimated Glomerular Filt Rate > 60; Glucose Random 80 mg/dL (60-115); Potassium 5.3 mmol/L (3.3-5.1); Sodium 141 mmol/L (135-145); Total Protein 6.6 g/dL (6.5-8.0)
--- NOTE | 2020-11-23 13:03 | PC.NURSE ---
nasal packing placed by provider, medicated for pain per emar, repeat cbc sent. pt offers no new complaints. wctm.
[2020-11-23 13:05] LABS: MANUAL DIFF FLAG NO
[2020-11-23 13:09] LABS: Basophils Percent Auto 0.2 % (0-2); Eosinophils Absolute Auto 0.1 X10*3/uL (0.0-0.4); Eosinophils Percent Auto 2.2 % (0-4); Hematocrit 39.8 % (37-47); Hemoglobin 12.7 g/dl (12.0-16.0); Imm Gran Abs Auto 0.02 X10*3/uL (0.00-0.03); Imm Gran Pct Auto 0.4 % (0.0-0.4); Lymphocytes Absolute Auto 1.6 X10*3/uL (1.2-4.9); Lymphocytes Percent Auto 35.4 % (20-40); Mean Corpuscular HGB Conc 31.9 g/dl (31.0-35.0); Mean Corpuscular Hemoglobin 28.8 pg (27.0-33.0); Mean Corpuscular Volume 90.2 fL (80-98); Mean Platelet Volume 10.7 fL (9.4-12.3); Monocytes Absolute Auto 0.5 X10*3/uL (0.1-1.2); Monocytes Percent Auto 10.3 % (2-11); Neutrophils Absolute Auto 2.4 X10*3/uL (2.0-8.3); Neutrophils Percent Auto 51.5 % (45-73); Platelet Count 178 X10*3/uL (160-400); Red Blood Count 4.41 X10*6/uL (4.20-5.50); Red Cell Distribution Width 13.1 % (11.0-16.0); White Blood Count 4.6 X10*3/uL (4.8-10.8)
--- NOTE | 2020-11-23 13:57 | PC.NURSE ---
pt family member called this rn for update, told family she was ready for discharge, pt family will call back w time they will be able to give pt ride home. precious.
== END 2020-11-23 14:27 | disposition home or self-care (01) ==
PROVIDERS: Nurse Practitioner Primary Care; Physician Assistant; Emergency Provider Emergency Medicine; PCP Family Medicine
DX: R04.0 Epistaxis (principal); I10 Essential (primary) hypertension; E78.5 Hyperlipidemia, unspecified; E11.9 Type 2 diabetes mellitus without complications; Z86.16 Personal history of COVID-19; Z79.01 Long term (current) use of anticoagulants; I25.2 Old myocardial infarction
CPT/HCPCS: 30903; 36415; 71045; 80053; 82272; 84484; 85025; 85610; 85730; 93005; 99284

== ENCOUNTER 2020-11-24 20:41 | Emergency (ER) | payer MEDICARE, SELFPAY ==
[2020-11-24 20:48] VITALS: BP 162/76; PULSE 88; RESP 20; TEMP 36.9; O2SAT 97; BMI 21.8
--- NOTE | 2020-11-24 20:49 | ED.EPISTAXIS ---
History of Present Illness General Chief Complaint: Epistaxis Stated Complaint: NOSE BLEED, PE SURGERY YESTERDAY Time Seen by Provider: 11/24/20 20:49 Source: patient Mode of arrival: ambulatory Limitations: no limitations History of Present Illness HPI Narrative: Patient on Eliquis for PE was seen here on yesterday for left epistaxis anterior nasal packing was done comes here because she had small amount of bleeding from the right side now on arrival patient does not have any active bleeding only dried blood at the nose drill and left nasal packing was dry. Location: Yes right nares Onset/current episode: Yes hour(s) Context: Yes history of previous nose bleed Related Data Home Medications Medication Instructions Recorded Confirmed benazepril 1 tab PO QAM 11/20/20 11/20/20 diltiazem HCl 1 cap PO BID 11/20/20 11/20/20 donepezil 1 tab PO BEDTIME 11/20/20 11/20/20 montelukast 1 tab PO BEDTIME 11/20/20 11/20/20 sertraline 2 tab PO QAM 11/20/20 11/20/20 Previous Rx's Medication Instructions Recorded azithromycin 250 mg PO DAILY 4 Days #4 tab 10/28/20 cefdinir 300 mg PO BID #14 cap 10/28/20 dexamethasone [Decadron] 6 mg PO DAILY #5 tab 10/31/20 loperamide [Anti-Diarrheal 2 mg PO Q6H PRN #14 cap 10/31/20 (loperamide)] ondansetron HCl [Zofran] 4 mg PO Q6H PRN #14 tab 10/31/20 apixaban [Eliquis] 5 mg PO BID #90 tab 11/22/20 amoxicillin-pot clavulanate 1 tab PO BID 5 Days #10 tab 11/23/20 [Augmentin] hydrocodone-acetaminophen 1 tab PO BID PRN 3 Days #10 tab 11/23/20 Allergies Allergy/AdvReac Type Severity Reaction Status Date / Time oxycodone [OXYCODONE] Allergy Unknown UNKNOWN Verified 11/24/20 20:58 Review of Systems Review of Systems: Yes all other systems are reviewed and are negative PMFSH Past Medical History Medical History Aortic insufficiency Asthma Depression Diabetes GERD (gastroesophageal reflux disease) High cholesterol Hypertension NSTEMI (non-ST elevated myocardial infarction) Pancreatitis Family History Family History Other Family history non-contributory Social History Social History Household Members: Family and Other Housing: Apartment Alcohol intake: never Smoking Status: Never smoker Second Hand Smoke Exposure: No Advance Directives: No service: No Current occupational status: unemployed and disabled Physical Exam Vital Signs: Vital Signs: Last Vital Signs Temp 97.9 F 11/24/20 22:30 Pulse 80 11/24/20 22:30 Resp 15 11/24/20 22:30 BP 115/71 11/24/20 22:30 Pulse Ox 96 11/24/20 22:30 Body Mass Index 21.8 Const: General: no acute distress Orientation/consciousness: patient oriented x3 HENMT: Head: Yes normocephalic and Yes atraumatic Ears: hearing grossly normal bilaterally General nose exam: Normal external nose present, Abnormal nasal septum present (Hole in anterior septum) and Epistaxis present (Blood clot in the right nostril) Face and sinus: Yes normal facial exam Eyes: General: appearance normal, both eyes and all related structures Resp: Effort & Inspection: normal respiratory effort Auscultation: clear to auscultation bilaterally Cardio: Palpation: normal PMI Rate: regular rate Rhythm: regular rhythm Heart sounds: S1 normal heart sound present and S2 normal heart sound present GI: Inspection: Yes normal to inspection Palpation (GI): Soft to palpation and nontender Auscultation: normal bowel sounds Neuro: General: patient oriented x3 and no focal motor deficits Procedures Epistaxis Control Time Out Performed: Yes Nostril: Yes bilateral Direct inspection: Yes unable to visualize Direct inspection method: Yes otoscope Clots removed by: Yes manually Epistaxis treatment: Yes petroleum coated ribbon gauze Results of treatment: Yes bleeding controlled Complications: Yes none Discharge Plan Discharge Clinical Impression: Epistaxis Patient Disposition: Home, Self-Care Instructions: Nosebleed (ED) Additional Instructions: Local care as advised. Remove the packing in next 2 days Continue antibiotics as given yesterday. Follow-up with ENT Report to the ER if increase in nasal bleeding Prescriptions: No Action cefdinir 300 mg capsule 300 mg PO BID Qty: 14 RF: 0 azithromycin 250 mg tablet 250 mg PO DAILY 4 Days Qty: 4 RF: 0 amoxicillin-pot clavulanate [Augmentin] 875-125 mg tablet 1 tab PO BID 5 Days Qty: 10 RF: 0 hydrocodone-acetaminophen 5-300 mg tablet 1 tab PO BID PRN (Reason: pain) 3 Days Qty: 10 RF: 0 ondansetron HCl [Zofran] 4 mg tablet 4 mg PO Q6H PRN (Reason: nausea and vomiting) Qty: 14 RF: 0 loperamide [Anti-Diarrheal (loperamide)] 2 mg capsule 2 mg PO Q6H PRN (Reason: loose stool) Qty: 14 RF: 0 dexamethasone [Decadron] 6 mg tablet 6 mg PO DAILY Qty: 5 RF: 0 donepezil 5 mg tablet 1 tab PO BEDTIME RF: 0 sertraline 100 mg tablet 2 tab PO QAM RF: 0 diltiazem HCl 120 mg capsule,extended release 12 hr 1 cap PO BID RF: 0 montelukast 10 mg tablet 1 tab PO BEDTIME RF: 0 benazepril 10 mg tablet 1 tab PO QAM RF: 0 Eliquis 5 mg tablet 5 mg PO BID Qty: 90 RF: 0 Referrals: Oleg Weinstein [Physician] - 2 days Interventions: ED Discharge Assessment Last Done: 11/24/20 22:30 Discharge Date/Time: 11/24/20 22:38
--- NOTE | 2020-11-24 20:59 | PC.NURSE ---
at bedside for primary eval.
--- NOTE | 2020-11-24 21:18 | PC.NURSE ---
Light oozing of blood to right nostril, per pt, daughter noticed today, calling EMS. MD removing balloon to left nostril. MD removing a large blood clot to right nostril. MD packing bilat nostrils. Plan to DC home.
--- NOTE | 2020-11-24 22:29 | PC.NURSE ---
MD at bedside with floor winder discussing DC instructions. Plan for MD to speak with daughter when she arrives to transport pt home. electrical cad technician at bedside updating VS.
[2020-11-24 22:30] VITALS: BP 115/71; PULSE 80; RESP 15; TEMP 36.6; O2SAT 96
== END 2020-11-24 22:38 | disposition home or self-care (01) ==
PROVIDERS: Emergency Provider Internal Medicine; PCP Family Medicine
DX: R04.0 Epistaxis (principal)
CPT/HCPCS: 30901; 99283

== ENCOUNTER 2020-11-27 11:03 | Emergency (ER) | payer MEDICARE, SELFPAY ==
[2020-11-27 12:35] VITALS: BP 139/73; PULSE 74; RESP 16; TEMP 36.8; O2SAT 97; BMI 23.2
--- NOTE | 2020-11-27 12:53 | PC.NURSE ---
THIS RN VERIFIED WITH PTS DAUGHTER SHE IS CURRENTLY TAKING ELIQUIS
--- NOTE | 2020-11-27 13:04 | PC.NURSE ---
[facility] IN TO ASSESS AND REMOVE NASAL PACKING, PT SIPPING GINGERALE, CALL MIRANDA IN PLACE, NO ACTIVE BLEEDING AT PRESENT TIME SITTING IN RECLINER
--- NOTE | 2020-11-27 13:12 | ED_ITS ---
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 There is a small embolus in the right upper lobe segmental branch. No significant pulmonary emboli in the left lung. No evidence of right heart strain. Started on Eliquis and discharged home. Seen in ED 11/23 for epistaxis and nasal packing placed. Returned 11/24 for continued bleeding and bilateral nares were packing with petroleum gauze. Patient was discharged home on augmentin. Patient returns today for packing removal. Offers no complaints. Related Data Home Medications Medication Instructions Recorded Confirmed benazepril 1 tab PO QAM 11/20/20 11/20/20 diltiazem HCl 1 cap PO BID 11/20/20 11/20/20 donepezil 1 tab PO BEDTIME 11/20/20 11/20/20 montelukast 1 tab PO BEDTIME 11/20/20 11/20/20 sertraline 2 tab PO QAM 11/20/20 11/20/20 Previous Rx's Medication Instructions Recorded azithromycin 250 mg PO DAILY 4 Days #4 tab 10/28/20 cefdinir 300 mg PO BID #14 cap 10/28/20 dexamethasone [Decadron] 6 mg PO DAILY #5 tab 10/31/20 loperamide [Anti-Diarrheal 2 mg PO Q6H PRN #14 cap 10/31/20 (loperamide)] ondansetron HCl [Zofran] 4 mg PO Q6H PRN #14 tab 10/31/20 apixaban [Eliquis] 5 mg PO BID #90 tab 11/22/20 amoxicillin-pot clavulanate 1 tab PO BID 5 Days #10 tab 11/23/20 [Augmentin] hydrocodone-acetaminophen 1 tab PO BID PRN 3 Days #10 tab 11/23/20 Allergies Allergy/AdvReac Type Severity Reaction Status Date / Time oxycodone [OXYCODONE] Allergy Unknown UNKNOWN Verified 11/24/20 20:58 Review of Systems Review of Systems: Yes all other systems are reviewed and are negative Constitutional: Constitutional: Reports no additional constitutional complaints, Denies body ache(s), Denies chills, Denies fever(s), Denies headache(s) and Denies weakness Eyes: Eyes: Reports no additional eye complaints and Denies change in vision ENT: Reports system reviewed and no additional complaints, except as documented, Denies dizziness, Denies headache(s), Denies nasal congestion, Denies nasal discharge and Denies neck pain Comments: no epistaxis Cardiovascular: Cardiovascular: Reports no additional cardiovascular complaints, Denies chest pain, Denies leg edema and Denies dyspnea Respiratory: Respiratory: Reports no additional respiratory complaints, Denies cough and Denies dyspnea Gastrointestinal: Gastrointestinal: Reports no additional gastrointestinal complaints, Denies abdominal pain, Denies diarrhea, Denies nausea and Denies vomiting Genitourinary: Genitourinary: Reports no additional female genitourinary compl aints and Denies urinary incontinence Musculoskeletal: Musculoskeletal: Reports no additional musculoskeletal complaints, Denies back pain, Denies arthralgias, Denies joint swelling, Denies neck pain, Denies numbness and Denies tingling Integumentary/Breasts: Skin/Breast: Reports system reviewed and no additional complaints, except as docu and Denies rash Neurologic: Reports system reviewed and no additional complaints, except as documented, Denies Abnormal speech present, Denies dizziness, Denies headache(s), Denies numbness, Denies tingling and Denies weakness FOR[facility]LY [facility], [facility] Past Medical History Attestation statement: The following information was validated with the patient. Source: old records reviewed and nursing notes reviewed Medical History Aortic insufficiency Asthma Depression Diabetes GERD (gastroesophageal reflux disease) High cholesterol Hypertension NSTEMI (non-ST elevated myocardial infarction) Pancreatitis Family History Family History Other Family history non-contributory Social History Social History Household Members: Family and Other Housing: Apartment Alcohol intake: never Smoking Status: Never smoker Smoked in Last 30 Days: No Second Hand Smoke Exposure: No Use of substances other than those prescribed or required for medical reasons: No Advance Directives: Yes Advance Directives Information Provided: No Advance Directives on File: No service: No Current occupational status: unemployed and disabled Physical Exam Vital Signs: Vital Signs: Last Vital Signs Temp 98.3 F 11/27/20 12:35 Pulse 74 11/27/20 12:35 Resp 16 11/27/20 12:35 BP 139/73 11/27/20 12:35 Pulse Ox 97 11/27/20 12:35 Body Mass Index 23.2 Const: General: cooperative, healthy appearing, comfortable and no acute distress Orientation/consciousness: patient oriented x3 Limitations: no limitations HENMT: Head: Yes normal to inspection Ears: hearing grossly normal bilaterally General nose exam: Normal external nose present, Normal nares present, No nasal polyps present, Abnormal mucous membranes and turbinates present (turbinates inflammed ) erythematous and no epistaxis Face and sinus: Yes normal facial exam Mouth: Normal oral and palatal mucosa present Throat: Yes posterior oropharynx normal Eyes: General: appearance normal, both eyes and all related structures Pupils: Equal, round and reactive pupils present Neck: Neck: Yes normal visual inspection Chest: Chest palpation & inspection: normal inspection of the chest Resp: Effort & Inspection: normal respiratory effort Auscultation: clear to auscultation bilaterally Cardio: Rate: regular rate Rhythm: regular rhythm Peripheral pulses: Peripheral pulses 2+ throughout GI: Inspection: Yes normal to inspection Palpation (GI): Soft to palpation and nontender Auscultation: normal bowel sounds Back/Spine/Pelvis: Thoracic/Lumbar Spine: thoracic and lumbar spine normal to inspection Skin: General skin exam: no rashes or lesions noted Neuro: General: patient oriented x3, no focal motor deficits and normal sensation to monofilament Cranial nerves: Yes Equal, round and reactive pupils present Cognition (Neuro): normal cognition Speech: No Abnormal speech present Gait exam (Neuro): Normal gait present Motor exam (neuro): 5/5 motor strength present throughout Extrem: General: Yes normal to inspection Course Course Course Narrative: Packing removed from bilateral nares. Will monitor emergency department for 1 hour to make sure there is no resuming epistaxis. 1415-Monitored in the ED for 1.5 hrs post packing removal with no additional epistaxis noted. Discharge home with daughter with plan for follow-up with ENT. Reviewed worrisome signs and symptoms of when to return to the emergency department. Comfortable discharge home. Discharge Plan Discharge Clinical Impression: Encounter for removal of nasal packing Patient Disposition: Home, Self-Care Instructions: Nosebleed (ED) Additional Instructions: Do not pick the nose No blowing or using a straw to drink liquids Follow-up with ear nose and throat Prescriptions: No Action cefdinir 300 mg capsule 300 mg PO BID Qty: 14 RF: 0 azithromycin 250 mg tablet 250 mg PO DAILY 4 Days Qty: 4 RF: 0 amoxicillin-pot clavulanate [Augmentin] 875-125 mg tablet 1 tab PO BID 5 Days Qty: 10 RF: 0 hydrocodone-acetaminophen 5-300 mg tablet 1 tab PO BID PRN (Reason: pain) 3 Days Qty: 10 RF: 0 ondansetron HCl [Zofran] 4 mg tablet 4 mg PO Q6H PRN (Reason: nausea and vomiting) Qty: 14 RF: 0 loperamide [Anti-Diarrheal (loperamide)] 2 mg capsule 2 mg PO Q6H PRN (Reason: loose stool) Qty: 14 RF: 0 dexamethasone [Decadron] 6 mg tablet 6 mg PO DAILY Qty: 5 RF: 0 donepezil 5 mg tablet 1 tab PO BEDTIME RF: 0 sertraline 100 mg tablet 2 tab PO QAM RF: 0 diltiazem HCl 120 mg capsule,extended release 12 hr 1 cap PO BID RF: 0 montelukast 10 mg tablet 1 tab PO BEDTIME RF: 0 benazepril 10 mg tablet 1 tab PO QAM RF: 0 Eliquis 5 mg tablet 5 mg PO BID Qty: 90 RF: 0 Referrals: Oleg Weinstein [Physician] - 2 days Interventions: ED Discharge Assessment Last Done: 11/27/20 14:23 Discharge Date/Time: 11/27/20 14:15
--- NOTE | 2020-11-27 13:39 | PC.NURSE ---
PT RESTING IN RECLINER, DAUGHTER AT BEDSIDE, NO ACTIVE BLEEDING REPORTED/NOTED
== END 2020-11-27 14:15 | disposition home or self-care (01) ==
PROVIDERS: Emergency Provider Emergency Medicine Emergency Medical Services; PCP Family Medicine
DX: R04.0 Epistaxis (principal); Z48.01 Encounter for change or removal of surgical wound dressing
CPT/HCPCS: 99284

== ENCOUNTER 2021-02-11 07:55 | Emergency (ER) | payer MEDICARE, SELFPAY ==
--- NOTE | ~2021-02-11 | CT_ITS ---
EXAMINATION: CT ABDOMEN AND PELVIS WITH CONTRAST CLINICAL INFORMATION: Right lower quadrant pain COMPARISON: Previous CT of the abdomen and pelvis recent February 2020 TECHNIQUE: Multidetector volumetric images were obtained from the superior aspect of the liver through the pubic symphysis following administration 85 mL of Omnipaque 350 intravenous contrast. Sagittal and coronal reformatted images were obtained on the technologist's workstation. Oral contrast: Yes This CT examination was performed using dose optimization techniques as appropriate, variously including the following: *Automated exposure control *Adjustment of mA and/or kV according to patient size (this includes techniques or standardized protocols for targeted exams where dose is matched to indication/reason for exam; i.e. extremities or head) *Use of iterative reconstruction technique DLP: 373 mGy-cm FINDINGS: LUNG BASES: There is dependent atelectasis at the lung bases. LIVER, GALLBLADDER, AND BILIARY TREE: The gallbladder has been removed. There is mild intrahepatic and extrahepatic biliary duct dilatation. This is similar to previous exam. This may be normal postcholecystectomy. No focal liver lesion is seen. PANCREAS: Unremarkable. SPLEEN: Unremarkable. ADRENAL GLANDS: Unremarkable. KIDNEYS AND URETERS: There is abnormal rotation of the left kidney with anterior orientation of the left renal pelvis. The right kidney is normal. BLADDER: Bladder is not optimally distended. There is bladder wall thickening. There is some stranding of the perivesicular fat seen superiorly and anteriorly. GASTROINTESTINAL TRACT: There is stool throughout the colon suggestive of constipation. There is a duodenal diverticulum adjacent to the head of the pancreas. Small and large bowel is otherwise unremarkable. The appendix is unremarkable. There is a esophageal hernia. ABDOMINAL WALL: No significant hernia is appreciated. LYMPH NODES: Normal. VASCULAR: Unremarkable. PELVIC VISCERA: Unremarkable. OSSEOUS STRUCTURES: There are degenerative changes of the spine. CT/CT abdomen pelvis w con IMPRESSION: Normal-appearing appendix. Stool throughout the colon questionable for constipation. Abnormally thickened bladder wall. Infectious, inflammatory and neoplastic process should be considered. Most cholecystectomy. There is intra and extrahepatic biliary duct dilatation. This is similar to previous CT exam February 2020 and may be normal postcholecystectomy.
[2021-02-11 08:03] VITALS: BP 164/75; PULSE 71; RESP 16; TEMP 36.4; O2SAT 98; BMI 21.9
--- NOTE | 2021-02-11 08:29 | ED_ITS ---
HPI - Abdominal Pain General Chief Complaint: Abdominal Pain Stated Complaint: abd pain Time Seen by Provider: 02/11/21 08:02 Source: patient Mode of arrival: ambulatory Limitations: no limitations History of Present Illness HPI narrative: Patient comes emergency room complaining of right lower quadrant pain for 4 days. Patient states the pain is constant, radiates towards the left lower quadrant and her back. Patient denies vomiting or diarrhea, does complain of nausea. Patient states she has been eating and drinking as usual. Denies dysuria/hematuria, no dark stool. Related Data Home Medications Medication Instructions Recorded Confirmed benazepril 1 tab PO QAM 11/20/20 11/20/20 diltiazem HCl 1 cap PO BID 11/20/20 11/20/20 donepezil 1 tab PO BEDTIME 11/20/20 11/20/20 montelukast 1 tab PO BEDTIME 11/20/20 11/20/20 sertraline 2 tab PO QAM 11/20/20 11/20/20 Previous Rx's Medication Instructions Recorded azithromycin 250 mg PO DAILY 4 Days #4 tab 10/28/20 cefdinir 300 mg PO BID #14 cap 10/28/20 dexamethasone [Decadron] 6 mg PO DAILY #5 tab 10/31/20 loperamide [Anti-Diarrheal 2 mg PO Q6H PRN #14 cap 10/31/20 (loperamide)] ondansetron HCl [Zofran] 4 mg PO Q6H PRN #14 tab 10/31/20 apixaban [Eliquis] 5 mg PO BID #90 tab 11/22/20 amoxicillin-pot clavulanate 1 tab PO BID 5 Days #10 tab 11/23/20 [Augmentin] hydrocodone-acetaminophen 1 tab PO BID PRN 3 Days #10 tab 11/23/20 cefuroxime axetil 500 mg PO BID #14 tab 02/11/21 Allergies Allergy/AdvReac Type Severity Reaction Status Date / Time oxycodone [OXYCODONE] Allergy Unknown UNKNOWN Verified 11/24/20 20:58 Review of Systems Review of Systems Constitutional : No Weight loss, No Fever, No Chills, No Night Sweats, No Fatigue, No Malaise ENT/Mouth : No Hearing loss, No Ear Pain, No Nasal Congestion, No Sinus Pain, No Hoarseness, No sore throat, No Rhinorrhea, No Swallowing Difficulty Eyes: No Eye Pain, No Swelling, No Redness, No Foreign Body, No Discharge, No Vision Changes Cardiovascular : No Chest Pain, No SOB, No Dyspnea on Exertion, No Orthopnea, No Edema, No Palpitations Respiratory : No Cough, No Sputum, No Wheezing, No Smoke Exposure, No Dyspnea Gastrointestinal : Complaining of Nausea, No Vomiting, No Diarrhea, No Constipation, complaining of right lower quadrant pain radiating towards the left lower quadrant and the back, No Hematochezia, No Melena Genitourinary : no irregular bleeding, No Dysuria, No Urinary Frequency, No Hematuria, No Urinary Incontinence, No Urgency, No Flank Pain, No Urinary Flow Changes, No Hesitancy Musculoskeletal : No joint pain, No Myalgias, No Joint Swelling Skin : No Skin Lesions, No rash Neuro : No Weakness, No Numbness, No Paresthesias, No Loss of Consciousness, No Dizziness, No Headache Psych : No Anxiety/Panic, No Depression, No SI/HI/AH/VH, No Social Issues, Heme/Lymph: No Bruising, No Bleeding,No Lymphadenopathy Endocrine : No Polyuria, No Polydipsia, No Temperature Intolerance Physical Exam Vital Signs: Vital Signs: Last Vital Signs Temp 97.5 F 02/11/21 08:03 Pulse 65 02/11/21 10:37 Resp 16 02/11/21 10:37 BP 140/71 H 02/11/21 10:37 Pulse Ox 97 02/11/21 10:37 Body Mass Index 21.9 Appearance: Alert. Oriented X3. No acute distress. Well-appearing Eyes: Pupils equal, round and reactive to light. ENT: Pharynx normal. Neck: Normal inspection. Neck supple. No lymph nodes noted. No crepitus CVS: Normal heart rate and rhythm. Pulses normal. Normal S1 and S2 Respiratory: No respiratory distress. Breath sounds normal. No Wheezing. No rales Abdomen: Soft, mild tenderness to palpation over the right lower quadrant and right inguinal area, No rigidity. No distention. good BS x4 Skin: Skin warm and dry. Normal skin color. Normal skin turgor. Extremities: No lower extremity edema. No lower extremity edema. No Lacerations. No Rash Neuro: Oriented X 3. No motor deficit. No sensory deficit. Moving all extermities. No slurred speech. Course Course Course Narrative: I discussed the CT and the labs with the patient. Patient likely has a mild urinary tract infection. I also discussed with the patient and her family about the CT findings regarding the thickened wall of the bladder. Discussed with the patient it is likely infectious, however malignancy cannot be ruled out. Patient instructed to follow-up with her primary care physician, as she may need a urinalysis and a follow-up CT scan. MDM - Abdominal Pain Lab Data Result diagrams: 02/11/21 09:09 02/11/21 09:09 Labs: Lab Results 02/11/21 02/11/21 02/11/21 Range/Units 09:09 09:09 09:09 WBC 4.5 L (4.8-10.8) X10*3/uL RBC 4.74 (4.20-5.50) X10*6/uL Hgb 13.3 (12.0-16.0) g/dl Hct 42.8 (37-47) % MCV 90.3 (80-98) fL MCH 28.1 (27.0-33.0) pg MCHC 31.1 (31.0-35.0) g/dl RDW 13.2 (11.0-16.0) % Plt Count 196 (160-400) X10*3/uL MPV 11.2 (9.4-12.3) fL Immature Gran % (Auto) 0.2 (0.0-0.4) % Neut % (Auto) 47.6 (45-73) % Lymph % (Auto) 35.3 (20-40) % [place] % (Auto) 12.4 H (2-11) % Eos % (Auto) 3.8 (0-4) % Baso % (Auto) 0.7 (0-2) % Lymph # (Auto) 1.6 (1.2-4.9) X10*3/uL [place] # (Auto) 0.6 (0.1-1.2) X10*3/uL Eos # (Auto) 0.2 (0.0-0.4) X10*3/uL Baso # (Auto) 0.0 (0.0-0.2) X10*3/uL Abs Immat Gran (auto) 0.01 (0.00-0.03) X10*3/uL Absolute Neuts (auto) 2.2 (2.0-8.3) X10*3/uL Absolute Nucleated RBC 0.000 (0.0-0.012) X10*3/uL Nucleated RBC % (auto) 0.0 (0.0-0.2) /100WBC Sodium 140 (135-145) mmol/L Potassium 4.9 (3.3-5.1) mmol/L Chloride 105 (96-108) mmol/L Carbon Dioxide 26 (22-29) mmol/L Anion Gap 14 (12-20) BUN 22 H (9-16) mg/dL Creatinine 0.93 (0.5-1.4) mg/dL Estim Creat Clear Calc 39.4 Estimated GFR 59 Random Glucose 109 D (60-115) mg/dL Calcium 9.9 D (8.4-10.2) mg/dL Total Bilirubin 0.6 (0.0-1.0) mg/dL Direct Bilirubin 0.2 (0.0-0.5) mg/dL AST 28 (5-31) U/L ALT 21 (0-31) U/L Alkaline Phosphatase 143 H D (39-117) U/L Total Protein 7.2 (6.5-8.0) g/dL Albumin 4.1 (3.5-5.0) g/dL Lipase 55 (8-78) U/L Urine Color YELLOW Urine Appearance CLEAR Urine pH 6.0 (5.0-8.0) Ur Specific [place] 1.020 (1.005-1.025) Urine Protein NEG (NEG-TRACE) MG/DL Urine Glucose (UA) NEG (NEG) MG/DL Urine Ketones NEG (NEG) MG/DL Urine Blood NEG (NEG) Urine Nitrite NEG (NEG) Ur Leukocyte Esterase 1+ H (NEG) Urine RBC 0 (0) /HPF Urine WBC 10-14 H (0-4) /HPF Ur Squamous Epith Cells 1+ /LPF Urine Bacteria TRACE /LPF Discharge Plan Discharge Clinical Impression: Acute UTI Abdominal pain Qualifiers: Abdominal location: right lower quadrant Qualified Code(s): R10.31 - Right lower quadrant pain Patient Disposition: Home, Self-Care Instructions: Urinary Tract Infection in Older Adults (ED) Additional Instructions: Please follow-up with your primary care physician tomorrow. If you have any worsening or new symptoms, please return to the emergency room or call 911 Prescriptions: New cefuroxime axetil 500 mg tablet 500 mg PO BID Qty: 14 RF: 0 No Action cefdinir 300 mg capsule 300 mg PO BID Qty: 14 RF: 0 azithromycin 250 mg tablet 250 mg PO DAILY 4 Days Qty: 4 RF: 0 amoxicillin-pot clavulanate [Augmentin] 875-125 mg tablet 1 tab PO BID 5 Days Qty: 10 RF: 0 hydrocodone-acetaminophen 5-300 mg tablet 1 tab PO BID PRN (Reason: pain) 3 Days Qty: 10 RF: 0 ondansetron HCl [Zofran] 4 mg tablet 4 mg PO Q6H PRN (Reason: nausea and vomiting) Qty: 14 RF: 0 loperamide [Anti-Diarrheal (loperamide)] 2 mg capsule 2 mg PO Q6H PRN (Reason: loose stool) Qty: 14 RF: 0 dexamethasone [Decadron] 6 mg tablet 6 mg PO DAILY Qty: 5 RF: 0 donepezil 5 mg tablet 1 tab PO BEDTIME RF: 0 sertraline 100 mg tablet 2 tab PO QAM RF: 0 diltiazem HCl 120 mg capsule,extended release 12 hr 1 cap PO BID RF: 0 montelukast 10 mg tablet 1 tab PO BEDTIME RF: 0 benazepril 10 mg tablet 1 tab PO QAM RF: 0 Eliquis 5 mg tablet 5 mg PO BID Qty: 90 RF: 0 PMFSH Past Medical History Medical History Aortic insufficiency Asthma Depression Diabetes GERD (gastroesophageal reflux disease) High cholesterol Hypertension NSTEMI (non-ST elevated myocardial infarction) Pancreatitis Family History Family History Other Family history non-contributory Social History Social History Household Members: Family and Other Household Members Other:: daughter is oriental rug repairer Housing: Apartment Do you presently have visiting nurse or other home services: No Alcohol intake: never Smoking Status: Never smoker Second Hand Smoke Exposure: No Advance Directives: No Advance Directives Information Provided: No service: No Current occupational status: unemployed and disabled
[2021-02-11] MEDS: ondansetron HCL 4 MG/2 ML VIAL IVPUSH (09:14)
[2021-02-11 09:15] LABS: MANUAL DIFF FLAG NO
[2021-02-11 09:19] LABS: Appearance Urine CLEAR; Color Urine YELLOW; Glucose Urine UA NEG (NEG); Leukocyte Esterase Urine 1+ (NEG); Nitrite Urine NEG (NEG); UACC Culture Trigger YES; Urine Blood NEG (NEG); Urine Ketones NEG (NEG); Urine Protein NEG (NEG-TRACE)
[2021-02-11 09:25] LABS: Basophils Percent Auto 0.7 % (0-2); Eosinophils Absolute Auto 0.2 X10*3/uL (0.0-0.4); Eosinophils Percent Auto 3.8 % (0-4); Hematocrit 42.8 % (37-47); Hemoglobin 13.3 g/dl (12.0-16.0); Imm Gran Abs Auto 0.01 X10*3/uL (0.00-0.03); Imm Gran Pct Auto 0.2 % (0.0-0.4); Lymphocytes Absolute Auto 1.6 X10*3/uL (1.2-4.9); Lymphocytes Percent Auto 35.3 % (20-40); Mean Corpuscular HGB Conc 31.1 g/dl (31.0-35.0); Mean Corpuscular Hemoglobin 28.1 pg (27.0-33.0); Mean Corpuscular Volume 90.3 fL (80-98); Mean Platelet Volume 11.2 fL (9.4-12.3); Monocytes Absolute Auto 0.6 X10*3/uL (0.1-1.2); Monocytes Percent Auto 12.4 % (2-11); Neutrophils Absolute Auto 2.2 X10*3/uL (2.0-8.3); Neutrophils Percent Auto 47.6 % (45-73); Platelet Count 196 X10*3/uL (160-400); Red Blood Count 4.74 X10*6/uL (4.20-5.50); Red Cell Distribution Width 13.2 % (11.0-16.0); White Blood Count 4.5 X10*3/uL (4.8-10.8)
[2021-02-11 09:31] LABS: Bacteria Urine TRACE /LPF; RBC Urine 0 /HPF (0); Squamous Epithelial Cell Urine 1+ /LPF
[2021-02-11 09:49] LABS: Alanine Aminotransferase 21 U/L (0-31); Albumin Level 4.1 g/dL (3.5-5.0); Alkaline Phosphatase 143 U/L (39-117); Anion Gap 14 (12-20); Aspartate Amino Transferase 28 U/L (5-31); Bilirubin Direct 0.2 mg/dL (0.0-0.5); Bilirubin Total 0.6 mg/dL (0.0-1.0); Blood Urea Nitrogen 22 mg/dL (9-16); Calcium 9.9 mg/dL (8.4-10.2); Carbon Dioxide 26 mmol/L (22-29); Chloride 105 mmol/L (96-108); Creatinine Clr Calc Pharmacy 39.4; Estimated Glomerular Filt Rate 59; Glucose Random 109 mg/dL (60-115); Lipase 55 U/L (8-78); Potassium 4.9 mmol/L (3.3-5.1); Sodium 140 mmol/L (135-145); Total Protein 7.2 g/dL (6.5-8.0)
[2021-02-11] MEDS: iohexoL 350 MG/ML 100 ML INFUS..BTL IV (10:13)
[2021-02-11 10:37] VITALS: BP 140/71; PULSE 65; RESP 16; O2SAT 97
== END 2021-02-11 11:32 | disposition home or self-care (01) ==
PROVIDERS: Emergency Provider Emergency Medicine; PCP Family Medicine
DX: N39.0 Urinary tract infection, site not specified (principal); R10.31 Right lower quadrant pain; Z20.822 Contact with and (suspected) exposure to COVID-19; E11.9 Type 2 diabetes mellitus without complications; I10 Essential (primary) hypertension; E78.5 Hyperlipidemia, unspecified; K21.9 Gastro-esophageal reflux disease without esophagitis; I25.2 Old myocardial infarction; Z79.899 Other long term (current) drug therapy; R93.41 Abnormal radiologic findings on diagnostic imaging of renal pelvis, ureter, or bladder; N32.89 Other specified disorders of bladder; Z79.01 Long term (current) use of anticoagulants
CPT/HCPCS: 36415; 74177; 80048; 80076; 81001; 81003; 83690; 85025; 87086; 96374; 99283; 99284; J2405; Q9967

== ENCOUNTER 2021-02-19 18:44 | Emergency (ER) | payer MEDICARE, SELFPAY ==
--- NOTE | 2021-02-19 | ECG_ITS ---
Test Reason : CHEST PAIN Blood Pressure : / mmHG Vent. Rate : 073 BPM Atrial Rate : 073 BPM P-R Int : 142 ms QRS Dur : 062 ms QT Int : 392 ms P-R-T Axes : 046 002 039 degrees QTc Int : 431 ms Normal sinus rhythm Normal ECG When compared with ECG of 23-NOV-2020 09:56, No significant change was found Referred By: Generic ED Physician Electronically Signed By:Sher Dugan
[2021-02-19 18:57] VITALS: BP 147/76; PULSE 89; RESP 16; TEMP 36.7; O2SAT 98; BMI 22.5
--- NOTE | 2021-02-19 20:01 | ED_ITS ---
HPI - Chest Pain General Chief Complaint: Chest Pain Stated Complaint: CP Time Seen by Provider: 02/19/21 20:00 Source: patient Mode of arrival: EMS Limitations: language barrier (Joinery Machinist present) History of Present Illness HPI narrative: Patient is a 75-year-old female with no significant past medical history is reporting 3 days of central chest pain which does not radiate. She describes the pain as burning. She denies any shortness of breath while sitting or shortness of breath with exertion. She did not try to take any medication to make it feel better. Instead she called the ambulance who gave her nitro and aspirin and fluids and brought her to the ED. patient states she has no heart issues that she is aware of however medical records states she is on Eliquis and diltiazem. Related Data Home Medications Medication Instructions Recorded Confirmed benazepril 1 tab PO QAM 11/20/20 11/20/20 diltiazem HCl 1 cap PO BID 11/20/20 11/20/20 donepezil 1 tab PO BEDTIME 11/20/20 11/20/20 montelukast 1 tab PO BEDTIME 11/20/20 11/20/20 sertraline 2 tab PO QAM 11/20/20 11/20/20 Previous Rx's Medication Instructions Recorded azithromycin 250 mg PO DAILY 4 Days #4 tab 10/28/20 cefdinir 300 mg PO BID #14 cap 10/28/20 dexamethasone [Decadron] 6 mg PO DAILY #5 tab 10/31/20 loperamide [Anti-Diarrheal 2 mg PO Q6H PRN #14 cap 10/31/20 (loperamide)] ondansetron HCl [Zofran] 4 mg PO Q6H PRN #14 tab 10/31/20 apixaban [Eliquis] 5 mg PO BID #90 tab 11/22/20 amoxicillin-pot clavulanate 1 tab PO BID 5 Days #10 tab 11/23/20 [Augmentin] hydrocodone-acetaminophen 1 tab PO BID PRN 3 Days #10 tab 11/23/20 cefuroxime axetil 500 mg PO BID #14 tab 02/11/21 omeprazole 20 mg PO DAILY #14 cap 02/19/21 Allergies Allergy/AdvReac Type Severity Reaction Status Date / Time oxycodone [OXYCODONE] Allergy Unknown UNKNOWN Verified 11/24/20 20:58 Review of Systems Review of Systems: Yes all other systems are reviewed and are negative [facility] Past Medical History Medical History Aortic insufficiency Asthma Depression Diabetes GERD (gastroesophageal reflux disease) High cholesterol Hypertension NSTEMI (non-ST elevated myocardial infarction) Pancreatitis Family History Family History Other Family history non-contributory Social History Social History Household Members: Family and Other Household Members Other:: daughter is title curative specialist Housing: Apartment Do you presently have visiting nurse or other home services: No Alcohol intake: never Second Hand Smoke Exposure: No Advance Directives: No service: No Current occupational status: unemployed and disabled Physical Exam Vital Signs: Vital Signs: Last Vital Signs Temp 97.6 F 02/19/21 20:36 Pulse 74 02/19/21 20:36 Resp 16 02/19/21 20:36 BP 145/74 H 02/19/21 20:36 Pulse Ox 97 02/19/21 20:36 Body Mass Index 22.5 Const: General: cooperative, healthy appearing, comfortable, no acute distress and well developed Orientation/consciousness: patient oriented x3 Limitations: no limitations HENMT: Head: Yes normal to inspection Eyes: General: appearance normal, both eyes and all related structures Neck: Neck: Yes normal visual inspection and Yes full ROM Resp: Effort & Inspection: normal respiratory effort and able to speak in complete sentences Auscultation: clear to auscultation bilaterally Cardio: Rate: regular rate Rhythm: regular rhythm Heart sounds: normal S1 and S2 GI: Inspection: Yes normal to inspection Palpation (GI): Soft to palpation and nontender Skin: General skin exam: no rashes or lesions noted Neuro: General: patient oriented x3 Extrem: General: Yes normal to inspection Course Course Course Narrative: 75-year-old female with 3 days of central burning chest pain which does not radiate. Vital signs stable, physical exam unremarkable. Will give GI cocktail and reassess. Reevaluation(s) Reevaluation #1: labs WNL, EKG NSR, negative troponin, Patient states she is feeling much better and would like to go home. Time: :05 MDM - Chest Pain Medical Records Data Attestation: I reviewed the patient's medical records. Lab Data Attestation: I reviewed the patient's lab results. Result diagrams: 02/19/21 20:43 02/19/21 20:43 Labs: Lab Results 02/19/21 02/19/21 02/19/21 Range/Units 20:43 20:43 20:43 WBC 5.4 (4.8-10.8) X10*3/uL RBC 4.50 (4.20-5.50) X10*6/uL Hgb 12.7 (12.0-16.0) g/dl Hct 40.5 (37-47) % MCV 90.0 (80-98) fL MCH 28.2 (27.0-33.0) pg MCHC 31.4 (31.0-35.0) g/dl RDW 13.2 (11.0-16.0) % Plt Count 217 (160-400) X10*3/uL MPV 11.3 (9.4-12.3) fL Immature Gran % (Auto) 0.2 (0.0-0.4) % Neut % (Auto) 52.2 (45-73) % Lymph % (Auto) 32.0 (20-40) % Union % (Auto) 12.4 H (2-11) % Eos % (Auto) 2.6 (0-4) % Baso % (Auto) 0.6 (0-2) % Lymph # (Auto) 1.7 (1.2-4.9) X10*3/uL Union # (Auto) 0.7 (0.1-1.2) X10*3/uL Eos # (Auto) 0.1 (0.0-0.4) X10*3/uL Baso # (Auto) 0.0 (0.0-0.2) X10*3/uL Abs Immat Gran (auto) 0.01 (0.00-0.03) X10*3/uL Absolute Neuts (auto) 2.8 (2.0-8.3) X10*3/uL Absolute Nucleated RBC 0.000 (0.0-0.012) X10*3/uL Nucleated RBC % (auto) 0.0 (0.0-0.2) /100WBC Sodium 141 (135-145) mmol/L Potassium 4.5 (3.3-5.1) mmol/L Chloride 108 (96-108) mmol/L Carbon Dioxide 27 (22-29) mmol/L Anion Gap 11 L (12-20) BUN 19 H (9-16) mg/dL Creatinine 0.95 (0.5-1.4) mg/dL Estim Creat Clear Calc 36.7 Estimated GFR 57 Random Glucose 130 H (60-115) mg/dL Calcium 9.2 D (8.4-10.2) mg/dL Total Bilirubin 0.3 (0.0-1.0) mg/dL AST 22 (5-31) U/L ALT 17 (0-31) U/L Alkaline Phosphatase 140 H (39-117) U/L Troponin I High Sens < 3.5 (<3.5-17.0) ng/L Total Protein 6.4 L (6.5-8.0) g/dL Albumin 3.7 (3.5-5.0) g/dL ECG Data ECG #1: Attestation: I personally reviewed and interpreted this ECG as follows: ECG interpretation date: 02/19/21 ECG interpretation time: 20:11 Interpretation: KATHLEEN 73BPM, Dr Palma signed Discharge Plan Discharge Clinical Impression: Chest pain due to GERD Patient Disposition: Home, Self-Care Instructions: Gastroesophageal Reflux Disease (ED) Additional Instructions: Please be sure to follow-up with your primary care doctor so they may continue prescribing this medication for you if it works well. I have sent a 2 week supply to your pharmacy of omeprazole. Prescriptions: New omeprazole 20 mg capsule,delayed release(DR/EC) 20 mg PO DAILY Qty: 14 RF: 0 No Action cefdinir 300 mg capsule 300 mg PO BID Qty: 14 RF: 0 azithromycin 250 mg tablet 250 mg PO DAILY 4 Days Qty: 4 RF: 0 amoxicillin-pot clavulanate [Augmentin] 875-125 mg tablet 1 tab PO BID 5 Days Qty: 10 RF: 0 hydrocodone-acetaminophen 5-300 mg tablet 1 tab PO BID PRN (Reason: pain) 3 Days Qty: 10 RF: 0 ondansetron HCl [Zofran] 4 mg tablet 4 mg PO Q6H PRN (Reason: nausea and vomiting) Qty: 14 RF: 0 loperamide [Anti-Diarrheal (loperamide)] 2 mg capsule 2 mg PO Q6H PRN (Reason: loose stool) Qty: 14 RF: 0 dexamethasone [Decadron] 6 mg tablet 6 mg PO DAILY Qty: 5 RF: 0 donepezil 5 mg tablet 1 tab PO BEDTIME RF: 0 sertraline 100 mg tablet 2 tab PO QAM RF: 0 diltiazem HCl 120 mg capsule,extended release 12 hr 1 cap PO BID RF: 0 montelukast 10 mg tablet 1 tab PO BEDTIME RF: 0 benazepril 10 mg tablet 1 tab PO QAM RF: 0 Eliquis 5 mg tablet 5 mg PO BID Qty: 90 RF: 0 cefuroxime axetil 500 mg tablet 500 mg PO BID Qty: 14 RF: 0
[2021-02-19 20:36] VITALS: BP 145/74; PULSE 74; RESP 16; TEMP 36.4; O2SAT 97
[2021-02-19 20:49] LABS: MANUAL DIFF FLAG NO
--- NOTE | 2021-02-19 20:51 | PC.NURSE ---
pharmacy contacted for reglan solution. mlp aware.
[2021-02-19 20:57] LABS: Basophils Percent Auto 0.6 % (0-2); Eosinophils Absolute Auto 0.1 X10*3/uL (0.0-0.4); Eosinophils Percent Auto 2.6 % (0-4); Hematocrit 40.5 % (37-47); Hemoglobin 12.7 g/dl (12.0-16.0); Imm Gran Abs Auto 0.01 X10*3/uL (0.00-0.03); Imm Gran Pct Auto 0.2 % (0.0-0.4); Lymphocytes Absolute Auto 1.7 X10*3/uL (1.2-4.9); Mean Corpuscular HGB Conc 31.4 g/dl (31.0-35.0); Mean Corpuscular Hemoglobin 28.2 pg (27.0-33.0); Mean Platelet Volume 11.3 fL (9.4-12.3); Monocytes Absolute Auto 0.7 X10*3/uL (0.1-1.2); Monocytes Percent Auto 12.4 % (2-11); Neutrophils Absolute Auto 2.8 X10*3/uL (2.0-8.3); Neutrophils Percent Auto 52.2 % (45-73); Platelet Count 217 X10*3/uL (160-400); Red Cell Distribution Width 13.2 % (11.0-16.0); White Blood Count 5.4 X10*3/uL (4.8-10.8)
[2021-02-19 21:20] LABS: Alanine Aminotransferase 17 U/L (0-31); Albumin Level 3.7 g/dL (3.5-5.0); Alkaline Phosphatase 140 U/L (39-117); Anion Gap 11 (12-20); Aspartate Amino Transferase 22 U/L (5-31); Bilirubin Total 0.3 mg/dL (0.0-1.0); Blood Urea Nitrogen 19 mg/dL (9-16); Calcium 9.2 mg/dL (8.4-10.2); Carbon Dioxide 27 mmol/L (22-29); Chloride 108 mmol/L (96-108); Creatinine Clr Calc Pharmacy 36.7; Estimated Glomerular Filt Rate 57; Glucose Random 130 mg/dL (60-115); Potassium 4.5 mmol/L (3.3-5.1); Sodium 141 mmol/L (135-145); Total Protein 6.4 g/dL (6.5-8.0)
[2021-02-19] MEDS: Famotidine 20 MG TABLET PO (21:23)
[2021-02-19] MEDS: Metoclopramide HCl Oral Soln 10 MG/10 ML SOLUTION PO (21:23)
[2021-02-19] MEDS: Lidocaine HCl Viscous 2 % 15 ML SOLUTION MUCOUS MEM (21:23)
[2021-02-19 21:28] LABS: Troponin-I High Sensitivity < 3.5 ng/L (<3.5-17.0)
[2021-02-19 22:00] VITALS: BP 126/75; PULSE 74; RESP 16; TEMP 36.6; O2SAT 99
== END 2021-02-19 22:30 | disposition home or self-care (01) ==
PROVIDERS: Physician Assistant; Emergency Provider Internal Medicine
DX: R07.89 Other chest pain (principal); K21.9 Gastro-esophageal reflux disease without esophagitis; E11.9 Type 2 diabetes mellitus without complications; E78.00 Pure hypercholesterolemia, unspecified; J45.909 Unspecified asthma, uncomplicated; Z79.899 Other long term (current) drug therapy; Z86.16 Personal history of COVID-19; Z86.711 Personal history of pulmonary embolism
CPT/HCPCS: 36415; 80053; 84484; 85025; 93005; 99283; 99284

== ENCOUNTER 2021-03-26 11:47 | Emergency (ER) | payer MEDICARE, SELFPAY ==
--- NOTE | ~2021-03-26 | CT_ITS ---
EXAMINATION: CT HEAD WITHOUT CONTRAST CLINICAL INFORMATION: Fall, trauma. On Eliquis. COMPARISON: CT head 10/15/2020 TECHNIQUE: Contiguous axial imaging was performed from the skull base to vertex without intravenous administration of contrast. Additional 2-D coronal and sagittal reformatted images are generated on the CT workstation and uploaded to PACS. This CT examination was performed using dose optimization techniques as appropriate, variously including the following: *Automated exposure control *Adjustment of mA and/or kV according to patient size (this includes techniques or standardized protocols for targeted exams where dose is matched to indication/reason for exam; i.e. extremities or head) *Use of iterative reconstruction technique DLP: 600 mGy-cm FINDINGS: There is no intracranial hemorrhage, hematoma, or extra-axial fluid collection. The ventricles are normal in size. There is no hydrocephalus, edema, or mass effect. The kelley-white matter differentiation appears symmetric. There is no visible acute territorial infarct or mass lesion. The calvarium appears intact. There is no pneumocephalus or orbital emphysema. The visualized sinuses and middle ears and mastoid air cells show no significant mucosal thickening. There are no air-fluid levels. CT/CT head/brain wo con IMPRESSION: No acute intracranial abnormality.
--- NOTE | ~2021-03-26 | CT_ITS ---
EXAMINATION: CT CHEST WITHOUT CONTRAST CLINICAL INFORMATION: Fall with left-sided rib pain COMPARISON: November 20, 2020 TECHNIQUE: Multidetector volumetric CT imaging of the chest was done. Axial MIP volume rendering provided. Sagittal and coronal reformatted images were obtained. This CT examination was performed using dose optimization techniques as appropriate, variously including the following: *Automated exposure control *Adjustment of mA and/or kV according to patient size (this includes techniques or standardized protocols for targeted exams where dose is matched to indication/reason for exam; i.e. extremities or head) *Use of iterative reconstruction technique DLP: 247 mGy-cm FINDINGS: LUNGS: Central airways are patent. There is some central bronchial wall thickening present. No bronchiectasis. Changes of centrilobular and paraseptal emphysema seen bilaterally. There are some scattered regions of nonspecific groundglass opacity bilaterally. Dependent atelectasis is present at the lung bases. Discoid atelectasis or scarring is noted within the right upper lobe and left lower lobe. There are some scattered sub-4 mm densities seen. There are a few densities seen along the right major fissure consistent with intrafissural lymph nodes. There is a 4 mm noncalcified nodule seen within the left upper lobe on image 180 of 531. MEDIASTINUM: Visualized thyroid gland appears unremarkable. Heart upper limits of normal in size. No pericardial effusion. No significant coronary artery calcification identified. No thoracic aortic aneurysm. No significant aortic plaque is seen. No hilar or mediastinal lymphadenopathy appreciated. PLEURA: There is no pleural effusion. No pleural mass or thickening. AXILLA: No lymphadenopathy. UPPER ABDOMEN: Status post cholecystectomy. No suspicious findings. Bilateral extrarenal pelves seen with some prominence of the collecting systems. OSSEOUS STRUCTURES: There is a hemangioma involving the left side of the T1 vertebral body. No suspicious destructive bony lesions appreciated. No displaced rib fracture is noted. CT/CT chest wo con IMPRESSION: No displaced rib fracture identified. No evidence of pneumothorax or hemothorax. Changes of centrilobular and paraseptal emphysema with scattered regions of groundglass opacity consistent with small airways disease. 4 mm noncalcified density left upper lobe. According to the UPDATED 2017 Fleischner Society recommendations, the advised follow-up imaging for solid nodules < 6 mm is: LOW RISK PATIENT: No routine follow-up. HIGH RISK PATIENT: Optional CT at 12 months.
--- NOTE | ~2021-03-26 | CT_ITS ---
EXAMINATION: CT CERVICAL SPINE WITHOUT CONTRAST CLINICAL INFORMATION: Fall, trauma COMPARISON: CT cervical spine 10/15/2020. TECHNIQUE: Multidetector volumetric CT imaging of the cervical spine is performed without contrast in the axial plane. Additional 2D reformatted coronal and sagittal images are generated on the CT workstation and uploaded to PACS. This CT examination was performed using dose optimization techniques as appropriate, variously including the following: *Automated exposure control *Adjustment of mA and/or kV according to patient size (this includes techniques or standardized protocols for targeted exams where dose is matched to indication/reason for exam; i.e. extremities or head) *Use of iterative reconstruction technique DLP: 247 mGy-cm FINDINGS: There is no vertebral compression fracture, fracture line, spondylolisthesis, or prevertebral soft tissue swelling. The craniocervical junction appears normal. The odontoid appears intact. There is normal cervical lordosis. There are multilevel degenerative changes again demonstrated. There is degenerative change between anterior arch C1 and the dens. Disc space narrowing is greatest at C5-C6 and C6-C7 with associated anterior and posterior vertebral spurring. There is mild multilevel facet degeneration again noted. There is no apical pneumothorax. No subcutaneous emphysema. CT/CT cervical spine wo con IMPRESSION: 1. No acute bony abnormality or prevertebral soft tissue swelling. 2. Multilevel degenerative disc and degenerative facet changes.
--- NOTE | 2021-03-26 11:51 | ED_ITS ---
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 Mode of arrival: EMS Limitations: other (cognitive impairment) History of Present Illness MD complaint: fall Onset (ago): minute(s) Fall from: standing Fall witnessed: yes, by family Place fall occurred: other (trapped in elevator for 45 minutes) Loss of consciousness: none Prolonged down time: no Symptoms prior to fall: none Context: tripped/slipped Location of injury: head and chest (left ribs) Severity: mild Quality: dull Associated symptoms (after fall): denies Related Data Home Medications Medication Instructions Recorded Confirmed benazepril 1 tab PO QAM 11/20/20 11/20/20 diltiazem HCl 1 cap PO BID 11/20/20 11/20/20 donepezil 1 tab PO BEDTIME 11/20/20 11/20/20 montelukast 1 tab PO BEDTIME 11/20/20 11/20/20 sertraline 2 tab PO QAM 11/20/20 11/20/20 Previous Rx's Medication Instructions Recorded azithromycin 250 mg PO DAILY 4 Days #4 tab 10/28/20 cefdinir 300 mg PO BID #14 cap 10/28/20 dexamethasone [Decadron] 6 mg PO DAILY #5 tab 10/31/20 loperamide [Anti-Diarrheal 2 mg PO Q6H PRN #14 cap 10/31/20 (loperamide)] ondansetron HCl [Zofran] 4 mg PO Q6H PRN #14 tab 10/31/20 apixaban [Eliquis] 5 mg PO BID #90 tab 11/22/20 amoxicillin-pot clavulanate 1 tab PO BID 5 Days #10 tab 11/23/20 [Augmentin] hydrocodone-acetaminophen 1 tab PO BID PRN 3 Days #10 tab 11/23/20 cefuroxime axetil 500 mg PO BID #14 tab 02/11/21 omeprazole 20 mg PO DAILY #14 cap 02/19/21 lidocaine 1 patch TOPICAL DAILY PRN #10 ea 03/26/21 Allergies Allergy/AdvReac Type Severity Reaction Status Date / Time oxycodone [OXYCODONE] Allergy Unknown UNKNOWN Verified 03/07/21 20:58 Review of Systems Review of Systems: Constitutional : No Fever, No Chills ENT/Mouth : No Ear Pain, No Hoarseness, No sore throat Eyes: No Eye Pain, No Swelling, No Redness, No Foreign Body Cardiovascular : No Chest Pain, No SOB Respiratory : No Cough, No Dyspnea Gastrointestinal : No Nausea, No Vomiting, No Diarrhea, No abdominal Pain Genitourinary : No Dysuria, No Hematuria Musculoskeletal : no joint pain, No Myalgias, No Joint Swelling, pos rib pain on left side Skin : No Skin lacerations, No rash Neuro : No Weakness, No Numbness, No Loss of Consciousness, No Dizziness, No Headache Psych : No Anxiety/Panic, No Depression Heme/Lymph: no easy bruising, no Lymphadenopathy Endocrine : No Polyuria, No Polydipsia All other systems reviewed and are negative [facility] Past Medical History Attestation statement: The following information was validated with the patient. Medical History Aortic insufficiency Asthma Depression Diabetes GERD (gastroesophageal reflux disease) High cholesterol Hypertension NSTEMI (non-ST elevated myocardial infarction) Pancreatitis Family History Family History Other Family history non-contributory Social History Social History Household Members: Family and Other Household Members Other:: daughter is lead based paint technician Housing: Apartment Do you presently have visiting nurse or other home services: No Alcohol intake: never Patient Tobacco Use Status: Never used Tobacco Second Hand Smoke Exposure: No Use of substances other than those prescribed or required for medical reasons: No Advance Directives: Yes Advance Directives Information Provided: Yes Advance Directives on File: No service: No Current occupational status: unemployed and disabled Physical Exam Vital Signs: Vital Signs: Last Vital Signs Temp 98.5 F 03/26/21 12:10 Pulse 83 03/26/21 12:10 Resp 16 03/26/21 12:10 BP 160/89 H 03/26/21 12:10 Pulse Ox 96 03/26/21 12:10 Body Mass Index 21.9 Appearance: Alert. Oriented X2. No acute distress. Eyes: Pupils equal, round and reactive to light. ENT: Pharynx normal. Neck: Normal inspection. Neck supple. in collar CVS: Normal heart rate and rhythm. Pulses normal. Chest: L rib posterior ttp no contusions noted Respiratory: No respiratory distress. Breath sounds normal. Abdomen: Soft and non-tender. Skin: Skin warm and dry. Normal skin color. Normal skin turgor. Extremities: No lower extremity edema. No calf ttp Neuro: Oriented X 2. No motor deficit. No sensory deficit. MDM - Fall MDM Narrative Medical decision making narrative: 75 yo female hx of dementia, PE on eliquis, HTN, HLD, DM, CAD< asthma, aortic insufficiency - came in after being stuck in an elevator and falling down - she is on eliquis at this time will need CT scan/cspine/chest to r/o trauma, she is at her baseline, I have taken care of her in the past and her mental status is at baseline. Discharge Plan Discharge Clinical Impression: Fall Qualifiers: Encounter type: initial encounter Qualified Code(s): W19.XXXA - Unspecified fall, initial encounter Contusion of rib Qualifiers: Encounter type: initial encounter Laterality: left Qualified Code(s): S20.212A - Contusion of left front wall of thorax, initial encounter Patient Disposition: Home, Self-Care Instructions: Fall Prevention for Older Adults (ED), Rib Contusion (ED) Additional Instructions: return to ED for any worsening symptoms or concerns CT scan findings - can follow up with CT scan in 1 year 4 mm noncalcified density left upper lobe. According to the UPDATED 2017 Fleischner Society recommendations, the advised follow-up imaging for solid nodules < 6 mm is: LOW RISK PATIENT: No routine follow-up. HIGH RISK PATIENT: Optional CT at 12 months Prescriptions: New lidocaine 4 % adhesive patch,medicated 1 patch topical DAILY PRN (Reason: pain) Qty: 10 RF: 0 No Action cefdinir 300 mg capsule 300 mg PO BID Qty: 14 RF: 0 azithromycin 250 mg tablet 250 mg PO DAILY 4 Days Qty: 4 RF: 0 amoxicillin-pot clavulanate [Augmentin] 875-125 mg tablet 1 tab PO BID 5 Days Qty: 10 RF: 0 hydrocodone-acetaminophen 5-300 mg tablet 1 tab PO BID PRN (Reason: pain) 3 Days Qty: 10 RF: 0 ondansetron HCl [Zofran] 4 mg tablet 4 mg PO Q6H PRN (Reason: nausea and vomiting) Qty: 14 RF: 0 loperamide [Anti-Diarrheal (loperamide)] 2 mg capsule 2 mg PO Q6H PRN (Reason: loose stool) Qty: 14 RF: 0 dexamethasone [Decadron] 6 mg tablet 6 mg PO DAILY Qty: 5 RF: 0 donepezil 5 mg tablet 1 tab PO BEDTIME RF: 0 sertraline 100 mg tablet 2 tab PO QAM RF: 0 diltiazem HCl 120 mg capsule,extended release 12 hr 1 cap PO BID RF: 0 montelukast 10 mg tablet 1 tab PO BEDTIME RF: 0 benazepril 10 mg tablet 1 tab PO QAM RF: 0 Eliquis 5 mg tablet 5 mg PO BID Qty: 90 RF: 0 cefuroxime axetil 500 mg tablet 500 mg PO BID Qty: 14 RF: 0 omeprazole 20 mg capsule,delayed release(DR/EC) 20 mg PO DAILY Qty: 14 RF: 0
[2021-03-26 11:53] VITALS: BP 161/84; PULSE 84; RESP 16; O2SAT 97; BMI 21.9
[2021-03-26 12:10] VITALS: BP 160/89; PULSE 83; RESP 16; TEMP 36.9; O2SAT 96
== END 2021-03-26 14:22 | disposition home or self-care (01) ==
PROVIDERS: Emergency Provider Emergency Medicine; PCP Family Medicine
DX: S20.212A Contusion of left front wall of thorax, initial encounter (principal); I10 Essential (primary) hypertension; E11.9 Type 2 diabetes mellitus without complications; J45.909 Unspecified asthma, uncomplicated; F03.90 Unspecified dementia, unspecified severity, without behavioral disturbance, psychotic disturbance, mood disturbance, and anxiety; Z86.711 Personal history of pulmonary embolism; Z79.01 Long term (current) use of anticoagulants; Z79.899 Other long term (current) drug therapy; W01.0XXA Fall on same level from slipping, tripping and stumbling without subsequent striking against object, initial encounter; Y93.9 Activity, unspecified; Y92.89 Other specified places as the place of occurrence of the external cause; Y99.9 Unspecified external cause status
CPT/HCPCS: 70450; 71250; 72125; 99284

== ENCOUNTER 2021-03-30 17:17 | Emergency (ER) | payer MEDICARE, SELFPAY ==
--- NOTE | ~2021-03-30 | XR_ITS ---
EXAMINATION: XR CHEST CLINICAL INFORMATION: Lethargy. COMPARISON: Chest x-ray November 23, 2020 TECHNIQUE: Frontal view of the chest was obtained. 5:53 PM FINDINGS: No significant abnormality is noted involving the heart, lungs, mediastinum, bony thorax or soft tissues. XR/XR chest 1V IMPRESSION: Unremarkable examination.
--- NOTE | ~2021-03-30 | CT_ITS ---
CT head/brain wo con CLINICAL INFORMATION: Reason for Exam headache for 3 days COMPARISON: Prior head CT 03/26/2021 TECHNIQUE: Department standard protocol. This CT examination was performed using dose optimization techniques as appropriate, variously including the following: *Automated exposure control *Adjustment of mA and/or kV according to patient size (this includes techniques or standardized protocols for targeted exams where dose is matched to indication/reason for exam; i.e. extremities or head) *Use of iterative reconstruction technique DLP: 530 mGy-cm FINDINGS: CEREBRAL HEMISPHERES: There is no evidence of intra-axial or extra-axial mass, hemorrhage or acute infarct. BRAIN PARENCHYMA: Normal kelley-white matter differentiation. SUBDURAL SPACE: No bleed. BASAL GANGLIA AND PINEAL GLAND: Unremarkable VENTRICLES: Symmetric and normal in size. CEREBELLUM AND BRAINSTEM: No space-occupying mass, hemorrhage or acute infarct. CEREBELLOPONTINE ANGLES: No lesion found. ORBITS: No intraorbital mass. VESSELS: Unremarkable SKULL BASE: Unremarkable INCLUDED SINUSES AT SKULL BASE: Clear SKULL AND SKIN: No fracture or bone lesion found. CT/CT head/brain wo con IMPRESSION: No CT evidence of intracranial space-occupying large mass, bleed or infarct. If patient remain symptomatic may consider correlation with contrast-enhanced MRI/MRA as they are more sensitive test for meningeal and vascular anomalies.
--- NOTE | ~2021-03-30 | CT_ITS ---
EXAMINATION: CT ANGIOGRAM OF THE CHEST WITH AND WITHOUT CONTRAST (CT PULMONARY ANGIOGRAM FOR PE) EXAMINATION: CT CHEST PE STUDY CLINICAL INFORMATION: Chest pain for 3 days. Evaluate for pulmonary embolism. COMPARISON: CT scan of the chest dated 03/26/[address] pulmonary angiogram dated 11/20/2020 and 04/03/2019. Thyroid ultrasound dated 05/03/2020. TECHNIQUE: Prior to contrast administration, localization images were obtained. After the administration of 54 mL of Omnipaque 350, multidetector CT volume acquisition of the chest was performed. 3-D postprocessing was performed with multiplanar reconstructions and MIP images obtained at the acquisition workstation under concurrent physician supervision. This CT examination was performed using dose optimization techniques as appropriate, variously including the following: *Automated exposure control *Adjustment of mA and/or kV according to patient size (this includes techniques or standardized protocols for targeted exams where dose is matched to indication/reason for exam; i.e. extremities or head) *Use of iterative reconstruction technique DLP: 155 mGy-cm. FINDINGS: Pulmonary arteries: The bolus timing on this study was acceptable for visualization of the pulmonary arterial tree. There are no intraluminal pulmonary arterial filling defects present to suggest pulmonary embolism in the main pulmonary artery, right and left main pulmonary artery, lobar and segmental branches. Lungs: The previously noted left upper lobe 4 mm solid noncalcified nodule is no longer visualized. Benign right minor fissure-based nodular thickening is seen, likely related to fissural based lymph node (series 7, image 196), unchanged. No suspicious pulmonary nodules, masses, pleural effusion or pneumothorax. The central airways are patent. Biapical pleural-based reticular nodular scarring and dependent atelectatic changes in both lower lobes noted. Aorta and heart: The heart is normal in size. No evidence of right heart strain. The aorta is normal. There is no pericardial effusion Lymphatic structures: There is no lymphadenopathy. Thyroid gland: Again seen is a dominant approximately 1.5 x 1.2 cm hypodense nodule in the left lobe of the thyroid gland, unchanged from prior exams dating back to 04/04/2019 and better demonstrated on prior thyroid ultrasounds, including 05/03/2020. Upper abdomen: Small retrocardiac hiatal hernia is noted. Post cholecystectomy yarely are seen in the gallbladder fossa. Limited evaluation of the upper abdominal viscera demonstrates no other focal abnormality. Bones: There is a mild convex left thoracic scoliosis with multilevel mild vertebral spondylosis. CT/CT angio chest PE protocol IMPRESSION: 1. No evidence of pulmonary embolism. 2. Long-term stable dominant nodule in left lobe of thyroid gland, unchanged since 2019. VTE: Negative
[2021-03-30 17:31] VITALS: BP 136/67; PULSE 96; RESP 16; O2SAT 98; BMI 19.2
--- NOTE | 2021-03-30 17:39 | ED_ITS ---
HPI - General Adult General Chief complaint: General Medical Stated complaint: headache Time Seen by Provider: 03/30/21 17:20 Source: patient Mode of arrival: ambulatory Limitations: no limitations History of Present Illness HPI narrative: Patient presents to ED for headache, lethargy, chest pain, and acid burning sensation in abdomen. Patient states having the symptoms for the past 3 days. Patient states no coughing, fever, chills, neck pain, abdominal pain, or dysuria/hematuria. Daughter called ambulance for mother to be evaluated. Related Data Home Medications Medication Instructions Recorded Confirmed benazepril 1 tab PO QAM 11/20/20 11/20/20 diltiazem HCl 1 cap PO BID 11/20/20 11/20/20 donepezil 1 tab PO BEDTIME 11/20/20 11/20/20 montelukast 1 tab PO BEDTIME 11/20/20 11/20/20 sertraline 2 tab PO QAM 11/20/20 11/20/20 Previous Rx's Medication Instructions Recorded azithromycin 250 mg PO DAILY 4 Days #4 tab 10/28/20 cefdinir 300 mg PO BID #14 cap 10/28/20 dexamethasone [Decadron] 6 mg PO DAILY #5 tab 10/31/20 loperamide [Anti-Diarrheal 2 mg PO Q6H PRN #14 cap 10/31/20 (loperamide)] ondansetron HCl [Zofran] 4 mg PO Q6H PRN #14 tab 10/31/20 apixaban [Eliquis] 5 mg PO BID #90 tab 11/22/20 amoxicillin-pot clavulanate 1 tab PO BID 5 Days #10 tab 11/23/20 [Augmentin] hydrocodone-acetaminophen 1 tab PO BID PRN 3 Days #10 tab 11/23/20 cefuroxime axetil 500 mg PO BID #14 tab 02/11/21 omeprazole 20 mg PO DAILY #14 cap 02/19/21 lidocaine 1 patch TOPICAL DAILY PRN #10 ea 03/26/21 famotidine [Pepcid] 20 mg PO BID #20 tab 03/30/21 Allergies Allergy/AdvReac Type Severity Reaction Status Date / Time oxycodone [OXYCODONE] Allergy Unknown UNKNOWN Verified 11/24/20 20:58 Review of Systems Review of Systems: Yes all other systems are reviewed and are negative Constitutional: Constitutional: Reports as per HPI, Reports no additional constitutional complaints, Reports fatigue and Reports headache(s) Eyes: Eyes: Reports as per HPI and Reports no additional eye complaints ENT: Reports system reviewed and no additional complaints, except as documented, Reports as per HPI and Reports headache(s) Cardiovascular: Cardiovascular: Reports as per HPI, Reports no additional c ardiovascular complaints and Reports chest pain Respiratory: Respiratory: Reports as per HPI and Reports no additional respiratory complaints Gastrointestinal: Gastrointestinal: Reports as per HPI, Reports no additional gastrointestinal complaints, Denies abdominal pain, Denies constipation, Reports heartburn, Denies nausea, Denies vomiting and Denies hematemesis Musculoskeletal: Musculoskeletal: Reports no additional musculoskeletal complaints and Reports as per HPI Neurologic: Reports system reviewed and no additional complaints, except as documented, Reports as per HPI, Reports Abnormal speech present and Reports headache(s) Psychiatric: Psychiatric: Reports no additional psychiatric complaints and Reports as per HPI Endocrine: Endocrine: Reports fatigue PMFSH Past Medical History Medical History Aortic insufficiency Asthma Depression Diabetes GERD (gastroesophageal reflux disease) High cholesterol Hypertension NSTEMI (non-ST elevated myocardial infarction) Pancreatitis Family History Family History Other Family history non-contributory Social History Social History Household Members: Family and Other Household Members Other:: 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 Housing: Apartment Do you presently have visiting nurse or other home services: No Alcohol intake: never Patient Tobacco Use Status: Never used Tobacco Second Hand Smoke Exposure: No Advance Directives: No Advance Directives Information Provided: No service: No Current occupational status: unemployed and disabled Physical Exam Vital Signs: Vital Signs: Last Vital Signs Temp 98.1 F 03/30/21 20:24 Pulse 78 03/30/21 22:27 Resp 16 03/30/21 22:27 BP 140/78 H 03/30/21 22:27 Pulse Ox 98 03/30/21 22:27 Body Mass Index 19.2 Const: General: cooperative, healthy appearing, comfortable, no acute distress, well developed, alert, awake and Physically active Orientation/consciousness: patient oriented x3 HENMT: Head: Yes normal to inspection, Yes No palpable skull fracture present, Yes normocephalic, Yes atraumatic, No abrasion, No Acrocyanosis present, No Washington's sign, No contusion, No cranial bruits, No hematoma, No laceration, No occipital foramen tenderness, No palpable skull fracture, No raccoon eyes, No scalp lesion, No scalp tenderness, No Temporal artery tenderness present and No periorbital ecchymosis Eyes: General: appearance normal, both eyes and all related structures Neck: Neck: Yes normal visual inspection, Yes full ROM, Yes no lymph adenopathy, Yes no meningeal signs, Yes trachea midline, Yes supple and No tender Chest: Chest palpation & inspection: normal inspection of the chest and normal palpation of entire chest wall Resp: Effort & Inspection: normal respiratory effort and able to speak in complete sentences Cardio: Jugular venous distension: no JVD Heart sounds: S1 normal heart sound present and S2 normal heart sound present GI: Inspection: Yes normal to inspection and No abdominal wall ecchymosis Palpation (GI): Soft to palpation, not firm, nontender, no guarding and not rigid : General: No CVA tenderness and Yes no CVA tenderness Back/Spine/Pelvis: Back: no CVA tenderness, No CVA tenderness and No back tenderness Skin: General skin exam: no rashes or lesions noted and elasticity normal Neuro: Other: Negative facial droop. Negative slurred speech. Negative pronator drift. Lower extremities equal strength. Ceetim-dw-fbbg and rapid hand movement. Negative Romberg. Normal gait General: patient oriented x3, moves all extremities, no meningeal signs and CN's II-XI intact bilaterally Cranial nerves: Yes CN's II-XII intact bilaterally Cognition (Neuro): normal cognition Speech: Abnormal speech present Motor exam (neuro): 5/5 motor strength present throughout and Pronator motor function not present Extrem: General: Yes normal to inspection and Yes full ROM Psych: Appearance: grossly normal, well kempt and not disheveled Course Course Course Narrative: Negative for any neuro deficits. Due to headache for 3 days on Eliquis was sent for head CT scan. Labs will be ordered. EKG ordered. Troponin Reevaluation(s) Reevaluation #1: EKG negative STEMI. Patient labs normal baseline. UA negative for UTI. Negative for any neuro deficits. Patient has normal gait. Due to h eadache as a burning sensation with chest pain for 3 days patient was sent for chest CT images for PE. Patient had recent PE 3 months ago. stated patient's symptom mostly to her depression anxiety. States 3 days ago patient's daughter and granddaughter was stuck in elevator she was very nervous and had a panic attack. Time: 22:50 Reevaluation #2: Head CT normal. Troponin after 3 days of symptoms is only 6. Chest CT negative for PE or pneumonia. Patient states he feel better after fluids and acid reflux meds. Patient is safe for discharge Time: 22:51 Medical Decision Making MDM Narrative Medical decision making narrative: GERD Lab Data Result diagrams: 03/30/21 18:04 03/30/21 18:04 Labs: Lab Results 03/30/21 03/30/21 03/30/21 Range/Units 18:04 18:04 18:04 WBC 4.3 L (4.8-10.8) X10*3/uL RBC 4.44 (4.20-5.50) X10*6/uL Hgb 12.6 (12.0-16.0) g/dl Hct 39.1 (37-47) % MCV 88.1 (80-98) fL MCH 28.4 (27.0-33.0) pg MCHC 32.2 (31.0-35.0) g/dl RDW 13.4 (11.0-16.0) % Plt Count 177 (160-400) X10*3/uL MPV 11.2 (9.4-12.3) fL Immature Gran % (Auto) 0.2 (0.0-0.4) % Neut % (Auto) 49.8 (45-73) % Lymph % (Auto) 33.6 (20-40) % [place] % (Auto) 13.1 H (2-11) % Eos % (Auto) 2.8 (0-4) % Baso % (Auto) 0.5 (0-2) % Lymph # (Auto) 1.4 (1.2-4.9) X10*3/uL [place] # (Auto) 0.6 (0.1-1.2) X10*3/uL Eos # (Auto) 0.1 (0.0-0.4) X10*3/uL Baso # (Auto) 0.0 (0.0-0.2) X10*3/uL Abs Immat Gran (auto) 0.01 (0.00-0.03) X10*3/uL Absolute Neuts (auto) 2.1 (2.0-8.3) X10*3/uL Absolute Nucleated RBC 0.000 (0.0-0.012) X10*3/uL Nucleated RBC % (auto) 0.0 (0.0-0.2) /100WBC PT 13.0 (9.9-13.0) SEC INR 1.1 (0.9-1.1) APTT 40.1 H (24.1-38.0) SEC Sodium 141 (135-145) mmol/L Potassium 4.5 (3.3-5.1) mmol/L Chloride 108 (96-108) mmol/L Carbon Dioxide 25 (22-29) mmol/L Anion Gap 13 (12-20) BUN 19 H (9-16) mg/dL Creatinine 1.10 (0.5-1.4) mg/dL Estim Creat Clear Calc 36.6 Estimated GFR 48 Random Glucose 128 H (60-115) mg/dL Calcium 9.3 (8.4-10.2) mg/dL Magnesium 2.2 (1.6-2.6) mg/dL Total Bilirubin 0.3 (0.0-1.0) mg/dL Direct Bilirubin (0.0-0.5) mg/dL AST 22 (5-31) U/L ALT 14 (0-31) U/L Alkaline Phosphatase 123 H (39-117) U/L Total Creatine Kinase 102 (26-140) U/L Troponin I High Sens (<3.5-17.0) ng/L B-Natriuretic Peptide (<100) pg/mL Total Protein 6.7 (6.5-8.0) g/dL Albumin 4.0 (3.5-5.0) g/dL Lipase (8-78) U/L Urine Color Urine Appearance Urine pH (5.0-8.0) Ur Specific [place] (1.005-1.025) Urine Protein (NEG-TRACE) MG/DL Urine Glucose (UA) (NEG) MG/DL Urine Ketones (NEG) MG/DL Urine Blood (NEG) Urine Nitrite (NEG) Ur Leukocyte Esterase (NEG) Urine RBC (0) /HPF Urine WBC (0-4) /HPF Ur Squamous Epith Cells /LPF Amorphous Sediment /LPF Urine Bacteria /LPF COVID-19 (HEMA) (Negative) COVID-19 Clin Com 03/30/21 03/30/21 03/30/21 Range/Units 18:04 18:04 18:04 WBC (4.8-10.8) X10*3/uL RBC (4.20-5.50) X10*6/uL Hgb (12.0-16.0) g/dl Hct (37-47) % MCV (80-98) fL MCH (27.0-33.0) pg MCHC (31.0-35.0) g/dl RDW (11.0-16.0) % Plt Count (160-400) X10*3/uL MPV (9.4-12.3) fL Immature Gran % (Auto) (0.0-0.4) % Neut % (Auto) (45-73) % Lymph % (Auto) (20-40) % [place] % (Auto) (2-11) % Eos % (Auto) (0-4) % Baso % (Auto) (0-2) % Lymph # (Auto) (1.2-4.9) X10*3/uL [place] # (Auto) (0.1-1.2) X10*3/uL Eos # (Auto) (0.0-0.4) X10*3/uL Baso # (Auto) (0.0-0.2) X10*3/uL Abs Immat Gran (auto) (0.00-0.03) X10*3/uL Absolute Neuts (auto) (2.0-8.3) X10*3/uL Absolute Nucleated RBC (0.0-0.012) X10*3/uL Nucleated RBC % (auto) (0.0-0.2) /100WBC PT (9.9-13.0) SEC INR (0.9-1.1) APTT (24.1-38.0) SEC Sodium (135-145) mmol/L Potassium (3.3-5.1) mmol/L Chloride (96-108) mmol/L Carbon Dioxide (22-29) mmol/L Anion Gap (12-20) BUN (9-16) mg/dL Creatinine (0.5-1.4) mg/dL Estim Creat Clear Calc Estimated GFR Random Glucose (60-115) mg/dL Calcium (8.4-10.2) mg/dL Magnesium (1.6-2.6) mg/dL Total Bilirubin 0.3 (0.0-1.0) mg/dL Direct Bilirubin < 0.2 (0.0-0.5) mg/dL AST 22 (5-31) U/L ALT 15 (0-31) U/L Alkaline Phosphatase 125 H (39-117) U/L Total Creatine Kinase (26-140) U/L Troponin I High Sens (<3.5-17.0) ng/L B-Natriuretic Peptide 38 (<100) pg/mL Total Protein 6.7 (6.5-8.0) g/dL Albumin 4.0 (3.5-5.0) g/dL Lipase 67 (8-78) U/L Urine Color Urine Appearance Urine pH (5.0-8.0) Ur Specific [place] (1.005-1.025) Urine Protein (NEG-TRACE) MG/DL Urine Glucose (UA) (NEG) MG/DL Urine Ketones (NEG) MG/DL Urine Blood (NEG) Urine Nitrite (NEG) Ur Leukocyte Esterase (NEG) Urine RBC (0) /HPF Urine WBC (0-4) /HPF Ur Squamous Epith Cells /LPF Amorphous Sediment /LPF Urine Bacteria /LPF COVID-19 (HEMA) Negative (Negative) COVID-19 Clin Com See Note 03/30/21 03/30/21 Range/Units 19:19 20:59 WBC (4.8-10.8) X10*3/uL RBC (4.20-5.50) X10*6/uL Hgb (12.0-16.0) g/dl Hct (37-47) % MCV (80-98) fL MCH (27.0-33.0) pg MCHC (31.0-35.0) g/dl RDW (11.0-16.0) % Plt Count (160-400) X10*3/uL MPV (9.4-12.3) fL Immature Gran % (Auto) (0.0-0.4) % Neut % (Auto) (45-73) % Lymph % (Auto) (20-40) % [place] % (Auto) (2-11) % Eos % (Auto) (0-4) % Baso % (Auto) (0-2) % Lymph # (Auto) (1.2-4.9) X10*3/uL [place] # (Auto) (0.1-1.2) X10*3/uL Eos # (Auto) (0.0-0.4) X10*3/uL Baso # (Auto) (0.0-0.2) X10*3/uL Abs Immat Gran (auto) (0.00-0.03) X10*3/uL Absolute Neuts (auto) (2.0-8.3) X10*3/uL Absolute Nucleated RBC (0.0-0.012) X10*3/uL Nucleated RBC % (auto) (0.0-0.2) /100WBC PT (9.9-13.0) SEC INR (0.9-1.1) APTT (24.1-38.0) SEC Sodium (135-145) mmol/L Potassium (3.3-5.1) mmol/L Chloride (96-108) mmol/L Carbon Dioxide (22-29) mmol/L Anion Gap (12-20) BUN (9-16) mg/dL Creatinine (0.5-1.4) mg/dL Estim Creat Clear Calc Estimated GFR Random Glucose (60-115) mg/dL Calcium (8.4-10.2) mg/dL Magnesium (1.6-2.6) mg/dL Total Bilirubin (0.0-1.0) mg/dL Direct Bilirubin (0.0-0.5) mg/dL AST (5-31) U/L ALT (0-31) U/L Alkaline Phosphatase (39-117) U/L Total Creatine Kinase (26-140) U/L Troponin I High Sens 6.1 D (<3.5-17.0) ng/L B-Natriuretic Peptide (<100) pg/mL Total Protein (6.5-8.0) g/dL Albumin (3.5-5.0) g/dL Lipase (8-78) U/L Urine Color YELLOW Urine Appearance CLEAR Urine pH 7.0 (5.0-8.0) Ur Specific [place] 1.010 (1.005-1.025) Urine Protein NEG (NEG-TRACE) MG/DL Urine Glucose (UA) NEG (NEG) MG/DL Urine Ketones NEG (NEG) MG/DL Urine Blood NEG (NEG) Urine Nitrite NEG (NEG) Ur Leukocyte Esterase TRACE H (NEG) Urine RBC 0-2 (0) /HPF Urine WBC 1-4 (0-4) /HPF Ur Squamous Epith Cells TRACE /LPF Amorphous Sediment TRACE /LPF Urine Bacteria TRACE /LPF COVID-19 (HEMA) (Negative) COVID-19 Clin Com ECG Data Interpretation: Normal sinus rhythm. Ventricular rate 64. Pr interval 136. QRS 64. QTC of 431. Negative STEMI Discharge Plan Discharge Clinical Impression: Headache, Chest pain due to GERD Patient Disposition: Home, Self-Care Instructions: Chest Pain (ED), Gastroesophageal Reflux Disease (ED), Acute Headache (ED) Additional Instructions: Hernandez an?lisis de kenney y hernandez electrocardiograma resultaron negativos para un ataque card?aco. La TC de t?rax result? negativa para EP. La tomograf?a computarizada de la pedrito result? negativa por accidente cerebrovascular o hemorragia cerebral. Hernandez an?lisis de kenney volvi? a la normalidad con un recuento normal de c?lulas sangu?neas. La funci?n renal es normal. Hernandez an?lisis de orina result? negativo para UTI. Regrese al servicio de urgencias inmediatamente si empeora el dolor de pedrito, n?useas, v?mitos, mareos, dolor de pecho, dolor abdominal, dificultad para respirar, disuria, hematuria, fiebre, escalofr?os, hinchaz?n de las extremidades inferiores, dolor en la pantorrilla o cualquier otro s?ntoma relacionado. Ayden un seguimiento con hernandez proveedor de atenci?n primaria. Prescriptions: New famotidine [Pepcid] 20 mg tablet 20 mg PO BID Qty: 20 RF: 0 No Action cefdinir 300 mg capsule 300 mg PO BID Qty: 14 RF: 0 azithromycin 250 mg tablet 250 mg PO DAILY 4 Days Qty: 4 RF: 0 amoxicillin-pot clavulanate [Augmentin] 875-125 mg tablet 1 tab PO BID 5 Days Qty: 10 RF: 0 hydrocodone-acetaminophen 5-300 mg tablet 1 tab PO BID PRN (Reason: pain) 3 Days Qty: 10 RF: 0 ondansetron HCl [Zofran] 4 mg tablet 4 mg PO Q6H PRN (Reason: nausea and vomiting) Qty: 14 RF: 0 loperamide [Anti-Diarrheal (loperamide)] 2 mg capsule 2 mg PO Q6H PRN (Reason: loose stool) Qty: 14 RF: 0 dexamethasone [Decadron] 6 mg tablet 6 mg PO DAILY Qty: 5 RF: 0 donepezil 5 mg tablet 1 tab PO BEDTIME RF: 0 sertraline 100 mg tablet 2 tab PO QAM RF: 0 diltiazem HCl 120 mg capsule,extended release 12 hr 1 cap PO BID RF: 0 montelukast 10 mg tablet 1 tab PO BEDTIME RF: 0 benazepril 10 mg tablet 1 tab PO QAM RF: 0 Eliquis 5 mg tablet 5 mg PO BID Qty: 90 RF: 0 cefuroxime axetil 500 mg tablet 500 mg PO BID Qty: 14 RF: 0 omeprazole 20 mg capsule,delayed release(DR/EC) 20 mg PO DAILY Qty: 14 RF: 0 lidocaine 4 % adhesive patch,medicated 1 patch topical DAILY PRN (Reason: pain) Qty: 10 RF: 0 Interventions: ED Discharge Assessment Last Done: 03/30/21 23:20 Discharge Date/Time: 03/30/21 23:21 Print Language: Nepali
--- NOTE | 2021-03-30 17:56 | ECG_ITS ---
Test Reason : WEAKNESS Blood Pressure : / mmHG Vent. Rate : 064 BPM Atrial Rate : 064 BPM P-R Int : 136 ms QRS Dur : 064 ms QT Int : 418 ms P-R-T Axes : 047 004 040 degrees QTc Int : 431 ms Normal sinus rhythm Normal ECG When compared with ECG of 19-FEB-2021 19:12, No significant change was found Referred By: Jed Grissom Electronically Signed By:Sher Dugan
[2021-03-30] MEDS: 0.9 % Sodium Chloride 1,000 ML 999 ML IV (18:06)
[2021-03-30 18:14] LABS: Basophils Percent Auto 0.5 % (0-2); Eosinophils Absolute Auto 0.1 X10*3/uL (0.0-0.4); Eosinophils Percent Auto 2.8 % (0-4); Hematocrit 39.1 % (37-47); Hemoglobin 12.6 g/dl (12.0-16.0); Imm Gran Abs Auto 0.01 X10*3/uL (0.00-0.03); Imm Gran Pct Auto 0.2 % (0.0-0.4); Lymphocytes Absolute Auto 1.4 X10*3/uL (1.2-4.9); Lymphocytes Percent Auto 33.6 % (20-40); MANUAL DIFF FLAG NO; Mean Corpuscular HGB Conc 32.2 g/dl (31.0-35.0); Mean Corpuscular Hemoglobin 28.4 pg (27.0-33.0); Mean Corpuscular Volume 88.1 fL (80-98); Mean Platelet Volume 11.2 fL (9.4-12.3); Monocytes Absolute Auto 0.6 X10*3/uL (0.1-1.2); Monocytes Percent Auto 13.1 % (2-11); Neutrophils Absolute Auto 2.1 X10*3/uL (2.0-8.3); Neutrophils Percent Auto 49.8 % (45-73); Platelet Count 177 X10*3/uL (160-400); Red Blood Count 4.44 X10*6/uL (4.20-5.50); Red Cell Distribution Width 13.4 % (11.0-16.0); White Blood Count 4.3 X10*3/uL (4.8-10.8)
[2021-03-30 18:23] LABS: INTERNATIONAL NORM RATIO 1.1 (0.9-1.1)
[2021-03-30 18:26] LABS: Partial Thromboplastin Time 40.1 SEC (24.1-38.0)
[2021-03-30 18:32] LABS: COVID-19 Test Negative (Negative)
[2021-03-30] MEDS: PHENobarb/Hyoscy/Atropine/Scop 10 ML ELIXIR PO (18:35)
[2021-03-30] MEDS: Lidocaine HCl Viscous 2 % 15 ML SOLUTION MUCOUS MEM (18:35)
[2021-03-30] MEDS: Famotidine/PF 20 MG/2 ML VIAL IVPUSH (18:35)
[2021-03-30] MEDS: Magnesium Hydrox/Alum Hydrox 30 ML ORAL.SUSP PO (18:35)
[2021-03-30 18:40] LABS: Alanine Aminotransferase 14 U/L (0-31); Alkaline Phosphatase 123 U/L (39-117); Anion Gap 13 (12-20); Aspartate Amino Transferase 22 U/L (5-31); Bilirubin Total 0.3 mg/dL (0.0-1.0); Blood Urea Nitrogen 19 mg/dL (9-16); Calcium 9.3 mg/dL (8.4-10.2); Carbon Dioxide 25 mmol/L (22-29); Chloride 108 mmol/L (96-108); Creatinine Clr Calc Pharmacy 36.6; Estimated Glomerular Filt Rate 48; Glucose Random 128 mg/dL (60-115); Magnesium 2.2 mg/dL (1.6-2.6); Potassium 4.5 mmol/L (3.3-5.1); Sodium 141 mmol/L (135-145); Total Protein 6.7 g/dL (6.5-8.0)
[2021-03-30 18:41] LABS: Alanine Aminotransferase 15 U/L (0-31); Alkaline Phosphatase 125 U/L (39-117); Aspartate Amino Transferase 22 U/L (5-31); Bilirubin Direct < 0.2 mg/dL (0.0-0.5); Bilirubin Total 0.3 mg/dL (0.0-1.0); Lipase 67 U/L (8-78); Total Protein 6.7 g/dL (6.5-8.0)
[2021-03-30 18:45] LABS: B Type Natriuretic Peptide 38 pg/mL (<100)
[2021-03-30 19:26] LABS: Glucose Urine UA NEG (NEG); Leukocyte Esterase Urine TRACE (NEG); Nitrite Urine NEG (NEG); UACC Culture Trigger YES; Urine Blood NEG (NEG); Urine Ketones NEG (NEG); Urine Protein NEG (NEG-TRACE)
[2021-03-30 19:27] LABS: Appearance Urine CLEAR; Color Urine YELLOW
[2021-03-30 19:33] LABS: Amorphous Sediment Urine TRACE /LPF; Bacteria Urine TRACE /LPF; RBC Urine 0-2 /HPF (0); Squamous Epithelial Cell Urine TRACE /LPF
[2021-03-30] MEDS: iohexoL 350 MG/ML 100 ML INFUS..BTL IV (20:12)
[2021-03-30 20:24] VITALS: BP 148/77; PULSE 72; RESP 18; TEMP 36.7; O2SAT 96
[2021-03-30 21:47] LABS: Troponin-I High Sensitivity 6.1 ng/L (<3.5-17.0)
[2021-03-30 22:27] VITALS: BP 140/78; PULSE 78; RESP 16; O2SAT 98
== END 2021-03-30 23:21 | disposition home or self-care (01) ==
PROVIDERS: Physician Assistant; Emergency Provider Internal Medicine
DX: R51.9 Headache, unspecified (principal); R07.89 Other chest pain; K21.9 Gastro-esophageal reflux disease without esophagitis; I10 Essential (primary) hypertension; E11.9 Type 2 diabetes mellitus without complications; I25.2 Old myocardial infarction; Z86.711 Personal history of pulmonary embolism; Z79.01 Long term (current) use of anticoagulants; Z79.899 Other long term (current) drug therapy; Z20.822 Contact with and (suspected) exposure to COVID-19
CPT/HCPCS: 36415; 70450; 71045; 71275; 80053; 80076; 81001; 81003; 82248; 82550; 83690; 83735; 83880; 84484; 85025; 85610; 85730; 87086; 87635; 93005; 96361; 96374; 99285; Q9967

== ENCOUNTER 2021-05-11 09:02 | Observation (INO) | payer MEDICARE, SELFPAY ==
--- NOTE | ~2021-05-11 | XR_ITS ---
EXAMINATION: XR CHEST CLINICAL INFORMATION: Chest pain COMPARISON: Chest 02/28/2021 TECHNIQUE: Frontal view of the chest was obtained. FINDINGS: No significant abnormality is noted involving the heart, lungs, mediastinum, bony thorax or soft tissues. XR/XR chest 1V IMPRESSION: Unremarkable chest examination.
--- NOTE | 2021-05-11 09:06 | ECG_ITS ---
Test Reason : CP Blood Pressure : / mmHG Vent. Rate : 072 BPM Atrial Rate : 072 BPM P-R Int : 134 ms QRS Dur : 066 ms QT Int : 408 ms P-R-T Axes : 054 005 040 degrees QTc Int : 446 ms Normal sinus rhythm Normal ECG When compared with ECG of 30-MAR-2021 19:08, No significant change was found Referred By: Marcelina Alonzo Electronically Signed By:CARMEN INTERIANO
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
[2021-05-11 09:11] VITALS: BP 130/78; BP 189/103; PULSE 87; PULSE 91; RESP 20; TEMP 36.6; O2SAT 95; O2SAT 96; BMI 23.6
[2021-05-11] MEDS: LORazepam 0.5 MG TABLET PO (09:20)
[2021-05-11 09:33] LABS: MANUAL DIFF FLAG NO
[2021-05-11 09:34] LABS: Basophils Percent Auto 0.8 % (0-2); Eosinophils Absolute Auto 0.1 X10*3/uL (0.0-0.4); Eosinophils Percent Auto 3.4 % (0-4); Hematocrit 41.8 % (37-47); Hemoglobin 13.4 g/dl (12.0-16.0); Imm Gran Abs Auto 0.01 X10*3/uL (0.00-0.03); Imm Gran Pct Auto 0.3 % (0.0-0.4); Lymphocytes Absolute Auto 1.2 X10*3/uL (1.2-4.9); Lymphocytes Percent Auto 31.8 % (20-40); Mean Corpuscular HGB Conc 32.1 g/dl (31.0-35.0); Mean Corpuscular Hemoglobin 28.6 pg (27.0-33.0); Mean Corpuscular Volume 89.3 fL (80-98); Mean Platelet Volume 11.1 fL (9.4-12.3); Monocytes Absolute Auto 0.5 X10*3/uL (0.1-1.2); Monocytes Percent Auto 14.1 % (2-11); Neutrophils Absolute Auto 1.9 X10*3/uL (2.0-8.3); Neutrophils Percent Auto 49.6 % (45-73); Platelet Count 203 X10*3/uL (160-400); Red Blood Count 4.68 X10*6/uL (4.20-5.50); White Blood Count 3.8 X10*3/uL (4.8-10.8)
[2021-05-11 09:56] LABS: COVID-19 Test Negative (Negative); IDNOW Serial# 9DD0AD1C
[2021-05-11 10:00] LABS: Alanine Aminotransferase 19 U/L (0-31); Albumin Level 4.3 g/dL (3.5-5.0); Alkaline Phosphatase 109 U/L (39-117); Anion Gap 14 (12-20); Aspartate Amino Transferase 26 U/L (5-31); Bilirubin Direct 0.3 mg/dL (0.0-0.5); Bilirubin Total 0.6 mg/dL (0.0-1.0); Blood Urea Nitrogen 17 mg/dL (9-16); Calcium 9.6 mg/dL (8.4-10.2); Carbon Dioxide 24 mmol/L (22-29); Chloride 108 mmol/L (96-108); Creatinine Clr Calc Pharmacy 34.8; Estimated Glomerular Filt Rate 52; Glucose Random 115 mg/dL (60-115); Lipase 38 U/L (8-78); Magnesium 2.3 mg/dL (1.6-2.6); Potassium 4.2 mmol/L (3.3-5.1); Sodium 142 mmol/L (135-145); Total Protein 7.3 g/dL (6.5-8.0)
[2021-05-11 10:04] LABS: B Type Natriuretic Peptide 92 pg/mL (<100); Troponin-I High Sensitivity 25.6 ng/L (<3.5-17.0)
[2021-05-11 12:14] LABS: Troponin-I High Sensitivity 38.8 ng/L (<3.5-17.0)
[2021-05-11] MEDS: Nitroglycerin 0.4 MG TAB.SUBL SUBLINGUAL (12:44)
--- NOTE | 2021-05-11 13:31 | PC.NURSE ---
pt w hx of dementia unable to recollect home medications and doses, pharmacy called but closed. pt family sts they will bring in updated medication list as well as personal belongings for pt.
[2021-05-11] MEDS: Aspirin 81 MG TAB.CHEW PO (13:34)
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
[2021-05-11 15:49] LABS: Troponin-I High Sensitivity 36.7 ng/L (<3.5-17.0)
[2021-05-11] MEDS: Sertraline HCL 100 MG TABLET 200 MG PO (17:26)
[2021-05-11 17:41] LABS: Glucose, Whole Blood 85 mg/dL (60-115)
[2021-05-11 19:25] VITALS: BP 165/84; PULSE 71; RESP 16; TEMP 37.1; O2SAT 96
[2021-05-11 20:00] VITALS: BP 139/75; PULSE 69; RESP 18; TEMP 36.4; O2SAT 95
--- NOTE | 2021-05-11 21:13 | PC.NURSE ---
nurse to nurse report given to Rebekah COPELAND
[2021-05-11] MEDS: Montelukast Sodium 10 MG TABLET PO (21:46)
[2021-05-11] MEDS: Apixaban 5 MG TABLET PO (21:46)
[2021-05-11 21:47] VITALS: BP 139/75; PULSE 69
[2021-05-11] MEDS: 0.9 % Sodium Chloride Flush 3 ML SYRINGE IVFLUSH (21:47)
[2021-05-11] MEDS: dilTIAZem HCL SR 60 MG CAP.ER.12H 120 MG PO (21:47)
[2021-05-11] MEDS: Atorvastatin Calcium 80 MG TABLET PO (21:47)
[2021-05-11] MEDS: Donepezil HCl 5 MG TABLET PO (21:47)
[2021-05-11 21:50] LABS: Glucose, Whole Blood 102 mg/dL (60-115)
[2021-05-11 23:38] VITALS: BP 127/60; PULSE 74; RESP 18; TEMP 36.9; O2SAT 96
[2021-05-12 04:00] VITALS: BP 118/76; PULSE 98; RESP 18; TEMP 36.1; O2SAT 95
[2021-05-12 06:57] LABS: MANUAL DIFF FLAG NO
[2021-05-12 07:19] LABS: Basophils Percent Auto 0.9 % (0-2); Eosinophils Absolute Auto 0.2 X10*3/uL (0.0-0.4); Eosinophils Percent Auto 4.7 % (0-4); Hematocrit 42.1 % (37-47); Hemoglobin 13.6 g/dl (12.0-16.0); Lymphocytes Absolute Auto 1.6 X10*3/uL (1.2-4.9); Lymphocytes Percent Auto 37.6 % (20-40); Mean Corpuscular HGB Conc 32.3 g/dl (31.0-35.0); Mean Corpuscular Volume 89.8 fL (80-98); Mean Platelet Volume 11.4 fL (9.4-12.3); Monocytes Absolute Auto 0.6 X10*3/uL (0.1-1.2); Monocytes Percent Auto 14.8 % (2-11); Neutrophils Absolute Auto 1.8 X10*3/uL (2.0-8.3); Platelet Count 202 X10*3/uL (160-400); Red Blood Count 4.69 X10*6/uL (4.20-5.50); Red Cell Distribution Width 13.7 % (11.0-16.0); White Blood Count 4.3 X10*3/uL (4.8-10.8)
[2021-05-12 07:24] VITALS: BP 133/84; PULSE 76; RESP 18; TEMP 36.1; O2SAT 97
[2021-05-12 07:24] LABS: Anion Gap 12 (12-20); Blood Urea Nitrogen 25 mg/dL (9-16); Calcium 9.6 mg/dL (8.4-10.2); Carbon Dioxide 26 mmol/L (22-29); Chloride 108 mmol/L (96-108); Creatinine Clr Calc Pharmacy 31.7; Estimated Glomerular Filt Rate 46; Glucose Random 87 mg/dL (60-115); Potassium 5.2 mmol/L (3.3-5.1); Sodium 141 mmol/L (135-145)
[2021-05-12 07:47] LABS: Glucose, Whole Blood 83 mg/dL (60-115)
[2021-05-12] MEDS: lisinopriL 10 MG TABLET PO (09:29)
[2021-05-12] MEDS: Sertraline HCL 100 MG TABLET 200 MG PO (09:29)
[2021-05-12] MEDS: 0.9 % Sodium Chloride Flush 3 ML SYRINGE IVFLUSH (09:29)
[2021-05-12] MEDS: Apixaban 5 MG TABLET PO (09:29)
[2021-05-12] MEDS: Aspirin Enteric Coated 81 MG TABLET.DR PO (09:29)
[2021-05-12 09:30] VITALS: BP 116/76; PULSE 80
[2021-05-12] MEDS: dilTIAZem HCL SR 60 MG CAP.ER.12H 120 MG PO (09:30)
[2021-05-12 11:35] VITALS: BP 118/62; PULSE 70; RESP 17; TEMP 36.3; O2SAT 96
--- NOTE | 2021-05-12 11:36 | PM.CNCAR ---
History of Present Illness History of Present Illness Date of Service: 05/12/21 Requesting physician: Meaghan Washington Chief complaint: chest pain Narrative: 75-year-old female with background history of hypertension and asthma who is presenting for chest discomfort. She had an argument with her daughter and she was upset because of that. She said she cried all night and next day started having palpitations and could feel her heart beating in her throat . No clear chest tightness or chest pain. Denies any shortness of breath. With these symptoms he presented to the emergency department and was noticed to have elevated blood pressure. Her troponin levels were mildly abnormal. Her high sensitivity troponin levels were 25, 38 and 37. EKG did not show any ischemic changes. She has been asymptomatic was her blood pressure came down. She is saying she follow up at [facility] for Cardiology. Review of Systems Review of Systems: Asymptomatic right now. Yes all other systems are reviewed and are negative PMFSH Past Medical History Medical History (Updated 05/12/21 @ 14:35 by Sher Dugan MD) Aortic insufficiency Asthma Depression Diabetes GERD (gastroesophageal reflux disease) High cholesterol Hypertension NSTEMI (non-ST elevated myocardial infarction) Pancreatitis Pulmonary embolism Family History Family History Other Family history non-contributory Social History Social History Household Members: Family and Other Household Members Other:: daughter is dexigraph operator Housing: Apartment Do you presently have visiting nurse or other home services: No Alcohol intake: never Patient Tobacco Use Status: Never used Tobacco Second Hand Smoke Exposure: No Use of substances other than those prescribed or required for medical reasons: No Advance Directives: No Advance Directives Information Provided: No service: No Current occupational status: unemployed and disabled Meds Allergies Allergy/AdvReac Type Severity Reaction Status Date / Time oxycodone [OXYCODONE] Allergy Unknown UNKNOWN Verified 11/24/20 20:58 Active Medications: Current Medications Generic Name Dose Route Start Last Admin Trade Name Freq PRN Reason Stop Dose Admin Acetaminophen 650 mg 05/11/21 13:45 Acetaminophen 325 Mg Tablet PO Q6H PRN Pain, Mild (Pain Scale 1-3) Hydrocodone Bitart/Acetaminophen 1 tab 05/11/21 14:50 Hydrocodone Bit/Acetam 5/325 Tablet PO BID PRN Pain, Moderate (Pain Scale 4-6 Apixaban 5 mg 05/11/21 21:00 05/12/21 09:29 Apixaban 5 Mg Tablet PO 5 mg BID ANGEL Administration Aspirin 81 mg 05/12/21 09:00 05/12/21 09:29 Aspirin Enteric Coated 81 Mg Tablet.Dr PO 81 mg DAILY ANGEL Administration Atorvastatin Calcium 80 mg 05/11/21 21:00 05/11/21 21:47 Atorvastatin Calcium 80 Mg Tablet PO 80 mg BEDTIME ANGEL Administration Dextrose 25 gm 05/11/21 14:44 Dextrose 50 % 25 Gm/50 Ml Vial IVPUSH Q15M PRN per Hypoglycemia Standing Ord. Protocol Diltiazem HCl 120 mg 05/11/21 21:00 05/12/21 09:30 Diltiazem Hcl Sr 60 Mg Cap.Er.12h PO 120 mg BID ANGEL Administration Protocol Donepezil HCl 5 mg 05/11/21 21:00 05/11/21 21:47 Donepezil Hcl 5 Mg Tablet PO 5 mg BEDTIME ANGEL Administration Glucose 15 gm 05/11/21 14:44 Glucose Gel 15 Gm Gel..Gram. PO Q15M PRN per Hypoglycemia Standing Ord. Protocol Insulin Human Lispro 0 unit 05/11/21 16:30 05/12/21 07:30 Insulin Lispro 100 Unit/Ml 3 Ml Vial SUBCUT Not Given QIDACHS [facility] Protocol Lisinopril 10 mg 05/12/21 09:00 05/12/21 09:29 Lisinopril 10 Mg Tablet PO 10 mg DAILY ANGEL Administration Loperamide HCl 2 mg 05/11/21 14:42 Loperamide Hcl 2 Mg Capsule PO Q6H PRN loose stool Montelukast Sodium 10 mg 05/11/21 21:00 05/11/21 21:46 Montelukast Sodium 10 Mg Tablet PO 10 mg BEDTIME ANGEL Administration Ondansetron HCl 4 mg 05/11/21 13:45 Ondansetron Hcl 4 Mg/2 Ml Vial IVPUSH Q8H PRN Nausea and Vomiting Sertraline HCl 200 mg 05/11/21 14:45 05/12/21 09:29 Sertraline Hcl 100 Mg Tablet PO 200 mg DAILY ANGEL Administration Sodium Chloride 3 ml 05/11/21 16:00 05/12/21 09:29 0.9 % Sodium Chloride Flush 3 Ml Syringe IVFLUSH 3 ml [facility] Administration Home Medications Medication Instructions Recorded Confirmed Last Taken Type benazepril 10 mg tablet 1 tab PO QAM 11/20/20 05/11/21 Unknown History diltiazem HCl 120 mg 1 cap PO BID 11/20/20 05/11/21 Unknown History capsule,extended release 12 hr donepezil 5 mg tablet 1 tab PO BEDTIME 11/20/20 05/11/21 Unknown History montelukast 10 mg tablet 1 tab PO BEDTIME 11/20/20 05/11/21 Unknown History sertraline 100 mg tablet 2 tab PO QAM 11/20/20 05/11/21 Unknown History Physical Exam Vital Signs: Vital Signs: Last Vital Signs Temp 97.0 F 05/12/21 07:24 Pulse 80 05/12/21 09:30 Resp 18 05/12/21 07:24 BP 116/76 05/12/21 09:30 Pulse Ox 97 05/12/21 07:24 Body Mass Index 23.6 GENERAL APPEARANCE: in no acute distress, pleasant. NECK: no carotid bruit, no jugular venous distention. SKIN: no suspicious lesions, warm and dry. HEART: no murmurs, regular rate and rhythm. LUNGS: clear to auscultation bilaterally. ABDOMEN: soft, nontender. EXTREMITIES: no edema. PERIPHERAL PULSES: equal. NEUROLOGIC: No gross deficits, AAO X 3 Results Labs and Meds Result diagrams: 05/12/21 06:13 05/12/21 06:13 Lab results: Laboratory Results - last 24 hr 05/11/21 05/11/21 05/11/21 11:38 15:02 17:37 WBC RBC Hgb Hct MCV MCH MCHC RDW Plt Count MPV Immature Gran % (Auto) Neut % (Auto) Lymph % (Auto) [place] % (Auto) Eos % (Auto) Baso % (Auto) Lymph # (Auto) [place] # (Auto) Eos # (Auto) Baso # (Auto) Abs Immat Gran (auto) Absolute Neuts (auto) Absolute Nucleated RBC Nucleated RBC % (auto) Sodium Potassium Chloride Carbon Dioxide Anion Gap BUN Creatinine Estim Creat Clear Calc Estimated GFR POC Glucose 85 Random Glucose Calcium Troponin I High Sens 38.8 H* D 36.7 H* 05/11/21 05/12/21 05/12/21 21:45 06:13 06:13 WBC 4.3 L RBC 4.69 Hgb 13.6 Hct 42.1 MCV 89.8 MCH 29.0 MCHC 32.3 RDW 13.7 Plt Count 202 MPV 11.4 Immature Gran % (Auto) 0.0 Neut % (Auto) 42.0 L Lymph % (Auto) 37.6 [place] % (Auto) 14.8 H Eos % (Auto) 4.7 H Baso % (Auto) 0.9 Lymph # (Auto) 1.6 [place] # (Auto) 0.6 Eos # (Auto) 0.2 Baso # (Auto) 0.0 Abs Immat Gran (auto) 0.00 Absolute Neuts (auto) 1.8 L Absolute Nucleated RBC 0.000 Nucleated RBC % (auto) 0.0 Sodium 141 Potassium 5.2 H D Chloride 108 Carbon Dioxide 26 Anion Gap 12 BUN 25 H Creatinine 1.14 Estim Creat Clear Calc 31.7 Estimated GFR 46 POC Glucose 102 Random Glucose 87 Calcium 9.6 Troponin I High Sens 05/12/21 07:26 WBC RBC Hgb Hct MCV MCH MCHC RDW Plt Count MPV Immature Gran % (Auto) Neut % (Auto) Lymph % (Auto) [place] % (Auto) Eos % (Auto) Baso % (Auto) Lymph # (Auto) [place] # (Auto) Eos # (Auto) Baso # (Auto) Abs Immat Gran (auto) Absolute Neuts (auto) Absolute Nucleated RBC Nucleated RBC % (auto) Sodium Potassium Chloride Carbon Dioxide Anion Gap BUN Creatinine Estim Creat Clear Calc Estimated GFR POC Glucose 83 Random Glucose Calcium Troponin I High Sens Assessment and Plan (1) Chest pain: Qualifiers: Chest pain type: unspecified Qualified Code(s): R07.9 - Chest pain, unspecified Status: Acute (2) Elevated troponin: Status: Acute (3) Essential hypertension: Status: Acute 75-year-old female who is presenting for palpitations, elevated blood pressure and mildly abnormal troponin levels in the setting of emotional stress. She had an argument with her daughter and was quite upset and cried all night followed by palpitations. No significant arrhythmia has been noticed. Troponin levels are mildly abnormal and can be explained by the elevated blood pressure. Her blood pressure is improved at this stage with her home medications. I think likely reason for presentation was due to emotional stress and elevated blood pressure. EKG did not show any ischemic changes. She will follow-up at [facility] and will get Procedures Date of Service Date of Service: 05/12/21
[2021-05-12 12:01] LABS: Glucose, Whole Blood 93 mg/dL (60-115)
--- NOTE | 2021-05-12 13:34 | PM.DS ---
DS: Providers Provider Date of Service: 05/12/21 Date of admission: 05/11/21 14:26 Date of discharge: 05/12/21 Primary care physician: Tiffany Kent MD Admitting clinician: Meaghan Washington Attending physician on admission: Roberto Dawson Consults: 05/11/21 14:27 Consult to Cardiology Routine Consulting Provider: Attila Calle Reason for consultation: chest pain Has provider been notified: No Attending physician on discharge: Juan Pino Discharging clinician: Meaghan Washington DS: Diagnosis Discharge Diagnosis (1) Chest pain: Status: Acute (2) Elevated troponin: Status: Acute DS: Medications Discharge Medications Home Medications: Home Medications Medication Instructions Recorded Confirmed benazepril 10 mg tablet 1 tab PO QAM 11/20/20 05/11/21 diltiazem HCl 120 mg 1 cap PO BID 11/20/20 05/11/21 capsule,extended release 12 hr donepezil 5 mg tablet 1 tab PO BEDTIME 11/20/20 05/11/21 montelukast 10 mg tablet 1 tab PO BEDTIME 11/20/20 05/11/21 sertraline 100 mg tablet 2 tab PO QAM 11/20/20 05/11/21 Previous Rx's Medication Instructions Recorded loperamide 2 mg capsule 2 mg PO Q6H PRN #14 cap 10/31/20 (Anti-Diarrheal (loperamide)) ondansetron HCl 4 mg tablet 4 mg PO Q6H PRN #14 tab 10/31/20 (Zofran) apixaban 5 mg tablet (Eliquis) 5 mg PO BID #90 tab 11/22/20 hydrocodone 5 mg-acetaminophen 300 1 tab PO BID PRN 3 Days #10 tab 11/23/20 mg tablet lidocaine 4 % topical patch 1 patch TOPICAL DAILY PRN #10 ea 03/26/21 atorvastatin 80 mg tablet 80 mg PO BEDTIME #30 tab 05/12/21 DS: Summary Hospital Course Hospital Course: 75-year-old Wallisian-speaking woman presenting to the ER after having left-sided chest pressure and palpitations.? She reports that she got into fight with her daughter and she started feeling shaky and had which she thought was palpitations.? She felt her heart was racing very fast.? She denied any shortness of breath, headache, visual changes, loss of consciousness. ? In the ED the her EKG showed normal sinus rhythm without any acute ST wave abnormalities.? Initial troponin was 20.6 with repeat of 38.8.? The embossing press operator was consulted and suggested observing the patient overnight.? Her blood pressure was also noted to be elevated with highest reading of 189/103.? She was given a dose of Ativan, nitroglycerin, aspirin.? Should be admitted to observation overnight for chest pain and mildly elevated troponin Chest pain. Patient presented after she had an argument with her daughter and felt chest pressure. She has a history of coronary artery disease and was thought that admitting her on observation would be prudent. Initial high sensitivity troponin was 25.6 with repeat of 30.8, 36.7. She had no other complaints of chest pain an EKG did not show any ischemic changes. She was seen and evaluated by Cardiology and she should follow-up with her embossing press operator in [facility] for an outpatient stress test. Time Spent with Patient Time attestation: Total time spent providing and/or coordinating discharge services: Discharge coordination time: Greater than 30 minutes Quality: Stroke Does the patient have a stroke diagnosis?: No Physical Exam Vital Signs: Vital Signs: Last Vital Signs Temp 97.3 F 05/12/21 11:35 Pulse 70 05/12/21 11:35 Resp 17 05/12/21 11:35 BP 118/62 05/12/21 11:35 Pulse Ox 96 05/12/21 11:35 Body Mass Index 23.6 Appearing in no acute distress head is normocephalic atraumatic eyes pupils are PERRLA sclera is anicteric mouth throat mucous membranes are intact and moist neck is supple no lymphadenopathy, no JVD noted lung sounds are clear to auscultation heart regular rate rhythm, clear S1, S2 positive bowel sounds, abdomen is soft, nontender neuro patient is alert x3, no focal deficits DS: Data Data Completed and Pending Labs on day of discharge: Laboratory Results - last 24 hr 05/11/21 05/11/21 05/11/21 15:02 17:37 21:45 WBC RBC Hgb Hct MCV MCH MCHC RDW Plt Count MPV Immature Gran % (Auto) Neut % (Auto) Lymph % (Auto) [place] % (Auto) Eos % (Auto) Baso % (Auto) Lymph # (Auto) [place] # (Auto) Eos # (Auto) Baso # (Auto) Abs Immat Gran (auto) Absolute Neuts (auto) Absolute Nucleated RBC Nucleated RBC % (auto) Sodium Potassium Chloride Carbon Dioxide Anion Gap BUN Creatinine Estim Creat Clear Calc Estimated GFR POC Glucose 85 102 Random Glucose Calcium Troponin I High Sens 36.7 H* 05/12/21 05/12/21 05/12/21 06:13 06:13 07:26 WBC 4.3 L RBC 4.69 Hgb 13.6 Hct 42.1 MCV 89.8 MCH 29.0 MCHC 32.3 RDW 13.7 Plt Count 202 MPV 11.4 Immature Gran % (Auto) 0.0 Neut % (Auto) 42.0 L Lymph % (Auto) 37.6 [place] % (Auto) 14.8 H Eos % (Auto) 4.7 H Baso % (Auto) 0.9 Lymph # (Auto) 1.6 [place] # (Auto) 0.6 Eos # (Auto) 0.2 Baso # (Auto) 0.0 Abs Immat Gran (auto) 0.00 Absolute Neuts (auto) 1.8 L Absolute Nucleated RBC 0.000 Nucleated RBC % (auto) 0.0 Sodium 141 Potassium 5.2 H D Chloride 108 Carbon Dioxide 26 Anion Gap 12 BUN 25 H Creatinine 1.14 Estim Creat Clear Calc 31.7 Estimated GFR 46 POC Glucose 83 Random Glucose 87 Calcium 9.6 Troponin I High Sens 05/12/21 11:35 WBC RBC Hgb Hct MCV MCH MCHC RDW Plt Count MPV Immature Gran % (Auto) Neut % (Auto) Lymph % (Auto) [place] % (Auto) Eos % (Auto) Baso % (Auto) Lymph # (Auto) [place] # (Auto) Eos # (Auto) Baso # (Auto) Abs Immat Gran (auto) Absolute Neuts (auto) Absolute Nucleated RBC Nucleated RBC % (auto) Sodium Potassium Chloride Carbon Dioxide Anion Gap BUN Creatinine Estim Creat Clear Calc Estimated GFR POC Glucose 93 Random Glucose Calcium Troponin I High Sens Discharge Plan Discharge Anticipated Discharge Date/Time: 05/12/21 13:30 Patient Disposition: Home, Self-Care Discharge Diagnosis: Chest pain Referrals: Tiffany Kent MD [Primary Care Provider] - 1 Week Discharge Medications: New atorvastatin 80 mg Tablet 80 mg PO BEDTIME Qty: 30 RF: 0 Continued hydrocodone-acetaminophen 5-300 mg tablet 1 tab PO BID PRN (Reason: pain) 3 Days Qty: 10 RF: 0 ondansetron HCl [Zofran] 4 mg tablet 4 mg PO Q6H PRN (Reason: nausea and vomiting) Qty: 14 RF: 0 loperamide [Anti-Diarrheal (loperamide)] 2 mg capsule 2 mg PO Q6H PRN (Reason: loose stool) Qty: 14 RF: 0 donepezil 5 mg tablet 1 tab PO BEDTIME RF: 0 sertraline 100 mg tablet 2 tab PO QAM RF: 0 diltiazem HCl 120 mg capsule,extended release 12 hr 1 cap PO BID RF: 0 montelukast 10 mg tablet 1 tab PO BEDTIME RF: 0 benazepril 10 mg tablet 1 tab PO QAM RF: 0 Eliquis 5 mg tablet 5 mg PO BID Qty: 90 RF: 0 lidocaine 4 % adhesive patch,medicated 1 patch topical DAILY PRN (Reason: pain) Qty: 10 RF: 0 Discharge Orders: Discharge Order (Routine); Ordered 05/12/21 Ordered By: Meaghan Washington Diet: advance to usual diet Activity on Discharge: As tolerated Stand Alone Forms: Patient Portal Discharge page Care Plan Goals: No further episodes of chest pain Health Concerns: Chest pain Plan of Treatment: Follow up with your primary embossing press operator for a stress test [facility] Assessment: See discharge summary
--- NOTE | 2021-05-12 14:24 | MHC.CM.PN ---
ESTEPHANIE 05/12/21, EMR REVIEWED. CM MET W/PT AND DTR/HCP [facility] WHO REPORTED PT LIVES W/, HAS A CANE/WALKER AT HOME AND HOME MODIFICATIONS, DTR IS PT'S PAID HOSPICE RN [id number] HOWEVER IS THERE DAILY TO HELP BOTTH PARENTS, PT ALSO HAS A [place] NURSE FROM [facility], PCP AND HCP VERIFIED. PCP AND HCP VERIFIED. D/C PLAN: HOME W/RESUMP OF SERVICES, FAMILY FOR TRANSPORT--- PT DISCHARGING HOME TODAY 05/12/21 HCP: [facility] [phone]
== END 2021-05-12 14:45 | disposition home or self-care (01) ==
LOC: HO.ED 13:21 → HO.EDOVER 14:41 → HO.S3 19:19
PROVIDERS: Admitting Provider Nurse Practitioner Acute Care; Emergency Provider Emergency Medicine; PCP Family Medicine; Visit Provider Family Medicine
DX: R07.9 Chest pain, unspecified (principal); R77.8 Other specified abnormalities of plasma proteins; I10 Essential (primary) hypertension; I21.4 Non-ST elevation (NSTEMI) myocardial infarction; I48.91 Unspecified atrial fibrillation; I35.1 Nonrheumatic aortic (valve) insufficiency; E78.00 Pure hypercholesterolemia, unspecified; J45.30 Mild persistent asthma, uncomplicated; F03.90 Unspecified dementia, unspecified severity, without behavioral disturbance, psychotic disturbance, mood disturbance, and anxiety; F32.9 Major depressive disorder, single episode, unspecified; Z88.6 Allergy status to analgesic agent; Z79.82 Long term (current) use of aspirin; Z79.4 Long term (current) use of insulin; Z79.899 Other long term (current) drug therapy
CPT/HCPCS: 36415; 71045; 80048; 80076; 82947; 83690; 83735; 83880; 84484; 85025; 87635; 93005; 96374; 96375; 99218; 99285

== ENCOUNTER 2021-06-04 21:02 | Emergency (ER) | payer MEDICARE, SELFPAY ==
--- NOTE | ~2021-06-04 | XR_ITS ---
EXAMINATION: PORTABLE CHEST 1 VIEW CLINICAL INFORMATION: cp . COMPARISON: 05/11/2021. TECHNIQUE: Portable frontal view of the chest was obtained. FINDINGS: The lungs are well expanded. Minimal basilar atelectasis but otherwise no focal infiltrate, effusion, edema, or pneumothorax. Cardiac and mediastinal silhouettes are within normal limits for technique. No acute bony abnormality seen. XR/XR chest 1V IMPRESSION: No evidence of acute disease.
[2021-06-04 21:07] VITALS: BP 160/82; PULSE 80; O2SAT 97
[2021-06-04 21:11] VITALS: BP 140/77; PULSE 88; RESP 20; TEMP 37.2; BMI 17.4
--- NOTE | 2021-06-04 21:12 | ED_ITS ---
HPI - Chest Pain General Chief Complaint: Chest Pain Stated Complaint: cp Time Seen by Provider: 06/04/21 21:12 Source: patient Mode of arrival: ambulatory Limitations: no limitations and language barrier History of Present Illness HPI narrative: Patient 75 years old with history of hypertension asthma, pulmonary embolism on Eliquis and COVID pneumonia, came for chest pain started 15:00 patient does have history of depression anxiety feels stable at this time was seen here on 05/12 for the same without any ischemic changes in the EKG patient took 1 nitro is on baby aspirin still feeling the pain pain is increas ing on deep inspiration and palpation no radiation of pain to the jaw or arm no diaphoresis patient looks comfortable. Patient had cardiac catheterization 2 times last one was in 01/08 which was negative Related Data Home Medications Medication Instructions Recorded Confirmed benazepril 10 mg tablet 1 tab PO QAM 11/20/20 05/11/21 diltiazem HCl 120 mg 1 cap PO BID 11/20/20 05/11/21 capsule,extended release 12 hr donepezil 5 mg tablet 1 tab PO BEDTIME 11/20/20 05/11/21 montelukast 10 mg tablet 1 tab PO BEDTIME 11/20/20 05/11/21 sertraline 100 mg tablet 2 tab PO QAM 11/20/20 05/11/21 Previous Rx's Medication Instructions Recorded loperamide 2 mg capsule 2 mg PO Q6H PRN #14 cap 10/31/20 (Anti-Diarrheal (loperamide)) ondansetron HCl 4 mg tablet 4 mg PO Q6H PRN #14 tab 10/31/20 (Zofran) apixaban 5 mg tablet (Eliquis) 5 mg PO BID #90 tab 11/22/20 hydrocodone 5 mg-acetaminophen 300 1 tab PO BID PRN 3 Days #10 tab 11/23/20 mg tablet lidocaine 4 % topical patch 1 patch TOPICAL DAILY PRN #10 ea 03/26/21 atorvastatin 80 mg tablet 80 mg PO BEDTIME #30 tab 05/12/21 Allergies Allergy/AdvReac Type Severity Reaction Status Date / Time oxycodone [OXYCODONE] Allergy Unknown UNKNOWN Verified 06/04/21 21:14 Review of Systems Review of Systems: Constitutional : No Weight loss, No Fever, No Chills ENT/Mouth : No sore throat, No Rhinorrhea Eyes: No Eye Pain, No Swelling Cardiovascular : +Chest Pain, no palpitations Respiratory : dry Cough, No Sputum, + shortness of breath Gastrointestinal : no Nausea, No Vomiting, No Diarrhea, No abdominal Pain, no black stools Genitourinary : No Dysuria, No Urinary Frequency Musculoskeletal : No joint pain, No Myalgias, No Joint Swelling Skin : No Skin Lesions, No rash Neuro : No Weakness, No Numbness, No Dizziness, No Headache Psych : No Anxiety/Panic, + Depression Heme/Lymph: No Bruising, No Lymphadenopathy Endocrine : No Polyuria, No Polydipsia All other systems reviewed and are negative [facility] Past Medical History Medical History (Updated 06/04/21 @ 22:26 by Ayad Saurez MD) Aortic insufficiency Asthma Depression Diabetes GERD (gastroesophageal reflux disease) High cholesterol Hypertension NSTEMI (non-ST elevated myocardial infarction) Pancreatitis Pulmonary embolism Family History Family History Other Family history non-contributory Social History Social History Household Members: Family and Other Household Members Other:: daughter is sow farm barn technician Housing: Apartment Do you presently have visiting nurse or other home services: No Alcohol intake: never Patient Tobacco Use Status: Never used Tobacco Second Hand Smoke Exposure: No Advance Directives: No Advance Directives Information Provided: Yes service: No Current occupational status: unemployed and disabled Physical Exam 2 Vital Signs: Vital Signs: Last Vital Signs Temp 98.9 F 06/04/21 21:11 Pulse 70 06/04/21 22:38 Resp 20 06/04/21 22:38 BP 114/64 06/04/21 22:38 Body Mass Index 17.4 Appearance: Alert. Oriented X3. No acute distress. Eyes: No pallor or icterus ENT: Pharynx normal. Oral Mucosa moist Neck: Normal inspection. Neck supple. No carotid bruit no JVD CVS: Normal heart rate and rhythm. Pulses normal. Respiratory: No respiratory distress. Equal air entry bilateral, no wheezing/rales/rhonchi tender to palpation to left chest Abdomen: Soft and nontender. Bowel sounds are present, no mass palpable, no CVA tenderness Skin: Skin warm and dry. Normal skin color. Normal skin turgor. Extremities: No lower extremity edema. No calf tenderness Neuro: Oriented X 3. No motor deficit. MDM - Chest Pain MDM Narrative Medical decision making narrative: Patient has atypical chest pain tender to palpation likely musculoskeletal pain without any ischemic changes high sensitive troponin negative for the pain for last 5 hours patient took nitro without any response taking Eliquis , had cardiac catheterization 2 times negative last cardiac catheterization in less than 6 months, will discharge patient home advised to follow-up PCP Medical Records Data Attestation: I reviewed the patient's medical records. Lab Data Attestation: I reviewed the patient's lab results. Result diagrams: 06/04/21 21:38 06/04/21 21:38 Labs: Lab Results 06/04/21 06/04/21 06/04/21 Range/Units 21:38 21:38 21:38 WBC 4.1 L (4.8-10.8) X10*3/uL RBC 4.14 L (4.20-5.50) X10*6/uL Hgb 12.1 (12.0-16.0) g/dl Hct 37.1 (37-47) % MCV 89.6 (80-98) fL MCH 29.2 (27.0-33.0) pg MCHC 32.6 (31.0-35.0) g/dl RDW 13.6 (11.0-16.0) % Plt Count 190 (160-400) X10*3/uL MPV 11.2 (9.4-12.3) fL Immature Gran % (Auto) 0.2 (0.0-0.4) % Neut % (Auto) 45.3 (45-73) % Lymph % (Auto) 33.8 (20-40) % [place] % (Auto) 14.3 H (2-11) % Eos % (Auto) 5.7 H (0-4) % Baso % (Auto) 0.7 (0-2) % Lymph # (Auto) 1.4 (1.2-4.9) X10*3/uL [place] # (Auto) 0.6 (0.1-1.2) X10*3/uL Eos # (Auto) 0.2 (0.0-0.4) X10*3/uL Baso # (Auto) 0.0 (0.0-0.2) X10*3/uL Abs Immat Gran (auto) 0.01 (0.00-0.03) X10*3/uL Absolute Neuts (auto) 1.8 L (2.0-8.3) X10*3/uL Absolute Nucleated RBC 0.000 (0.0-0.012) X10*3/uL Nucleated RBC % (auto) 0.0 (0.0-0.2) /100WBC PT 12.9 (9.9-13.0) SEC INR 1.1 (0.9-1.1) APTT 38.6 H (24.1-38.0) SEC Sodium 141 (135-145) mmol/L Potassium 4.3 (3.3-5.1) mmol/L Chloride 108 (96-108) mmol/L Carbon Dioxide 27 (22-29) mmol/L Anion Gap 10 L (12-20) BUN 24 H (9-16) mg/dL Creatinine 1.09 (0.5-1.4) mg/dL Estim Creat Clear Calc 33.5 Estimated GFR 49 Random Glucose 138 H (60-115) mg/dL Calcium 9.0 D (8.4-10.2) mg/dL Magnesium 2.3 (1.6-2.6) mg/dL Troponin I High Sens (<3.5-17.0) ng/L 06/04/21 Range/Units 21:38 WBC (4.8-10.8) X10*3/uL RBC (4.20-5.50) X10*6/uL Hgb (12.0-16.0) g/dl Hct (37-47) % MCV (80-98) fL MCH (27.0-33.0) pg MCHC (31.0-35.0) g/dl RDW (11.0-16.0) % Plt Count (160-400) X10*3/uL MPV (9.4-12.3) fL Immature Gran % (Auto) (0.0-0.4) % Neut % (Auto) (45-73) % Lymph % (Auto) (20-40) % [place] % (Auto) (2-11) % Eos % (Auto) (0-4) % Baso % (Auto) (0-2) % Lymph # (Auto) (1.2-4.9) X10*3/uL [place] # (Auto) (0.1-1.2) X10*3/uL Eos # (Auto) (0.0-0.4) X10*3/uL Baso # (Auto) (0.0-0.2) X10*3/uL Abs Immat Gran (auto) (0.00-0.03) X10*3/uL Absolute Neuts (auto) (2.0-8.3) X10*3/uL Absolute Nucleated RBC (0.0-0.012) X10*3/uL Nucleated RBC % (auto) (0.0-0.2) /100WBC PT (9.9-13.0) SEC INR (0.9-1.1) APTT (24.1-38.0) SEC Sodium (135-145) mmol/L Potassium (3.3-5.1) mmol/L Chloride (96-108) mmol/L Carbon Dioxide (22-29) mmol/L Anion Gap (12-20) BUN (9-16) mg/dL Creatinine (0.5-1.4) mg/dL Estim Creat Clear Calc Estimated GFR Random Glucose (60-115) mg/dL Calcium (8.4-10.2) mg/dL Magnesium (1.6-2.6) mg/dL Troponin I High Sens 5.0 D (<3.5-17.0) ng/L ECG Data ECG #1: Attestation: I personally reviewed and interpreted this ECG as follows: Interpretation: Normal sinus rhythm heart rate 67 beats per minute normal intervals normal axis no acute ischemic changes Discharge Plan Discharge Clinical Impression: Chest pain Qualifiers: Chest pain type: precordial pain Qualified Code(s): R07.2 - Precordial pain Patient Disposition: Home, Self-Care Instructions: Chest Pain (ED) Additional Instructions: Your chest pain is not from Heart. Likely musculoskeletal Continue medications and follow with PCP Tu dolor de pecho no es de [place]?n. Probablemente musculoesquel?yane Continuar con los medicamentos y seguir con el PCP Prescriptions: No Action hydrocodone-acetaminophen 5-300 mg tablet 1 tab PO BID PRN (Reason: pain) 3 Days Qty: 10 RF: 0 ondansetron HCl [Zofran] 4 mg tablet 4 mg PO Q6H PRN (Reason: nausea and vomiting) Qty: 14 RF: 0 loperamide [Anti-Diarrheal (loperamide)] 2 mg capsule 2 mg PO Q6H PRN (Reason: loose stool) Qty: 14 RF: 0 donepezil 5 mg tablet 1 tab PO BEDTIME RF: 0 sertraline 100 mg tablet 2 tab PO QAM RF: 0 diltiazem HCl 120 mg capsule,extended release 12 hr 1 cap PO BID RF: 0 montelukast 10 mg tablet 1 tab PO BEDTIME RF: 0 benazepril 10 mg tablet 1 tab PO QAM RF: 0 Eliquis 5 mg tablet 5 mg PO BID Qty: 90 RF: 0 lidocaine 4 % adhesive patch,medicated 1 patch topical DAILY PRN (Reason: pain) Qty: 10 RF: 0 atorvastatin 80 mg Tablet 80 mg PO BEDTIME Qty: 30 RF: 0
--- NOTE | 2021-06-04 21:13 | ECG_ITS ---
Test Reason : CP Blood Pressure : / mmHG Vent. Rate : 067 BPM Atrial Rate : 067 BPM P-R Int : 136 ms QRS Dur : 066 ms QT Int : 400 ms P-R-T Axes : 061 009 045 degrees QTc Int : 422 ms Sinus rhythm with Premature atrial complexes Otherwise normal ECG When compared with ECG of 11-MAY-2021 09:50, Premature atrial complexes are now Present Referred By: Ayad Suarez Electronically Signed By:CARMEN INTERIANO
--- NOTE | 2021-06-04 21:30 | PC.NURSE ---
MD at bedside for primary eval. medical supply technician at bedside for labs.
[2021-06-04 21:42] LABS: MANUAL DIFF FLAG NO
[2021-06-04 21:44] LABS: Basophils Percent Auto 0.7 % (0-2); Eosinophils Absolute Auto 0.2 X10*3/uL (0.0-0.4); Eosinophils Percent Auto 5.7 % (0-4); Hematocrit 37.1 % (37-47); Hemoglobin 12.1 g/dl (12.0-16.0); Imm Gran Abs Auto 0.01 X10*3/uL (0.00-0.03); Imm Gran Pct Auto 0.2 % (0.0-0.4); Lymphocytes Absolute Auto 1.4 X10*3/uL (1.2-4.9); Lymphocytes Percent Auto 33.8 % (20-40); Mean Corpuscular HGB Conc 32.6 g/dl (31.0-35.0); Mean Corpuscular Hemoglobin 29.2 pg (27.0-33.0); Mean Corpuscular Volume 89.6 fL (80-98); Mean Platelet Volume 11.2 fL (9.4-12.3); Monocytes Absolute Auto 0.6 X10*3/uL (0.1-1.2); Monocytes Percent Auto 14.3 % (2-11); Neutrophils Absolute Auto 1.8 X10*3/uL (2.0-8.3); Neutrophils Percent Auto 45.3 % (45-73); Platelet Count 190 X10*3/uL (160-400); Red Blood Count 4.14 X10*6/uL (4.20-5.50); Red Cell Distribution Width 13.6 % (11.0-16.0); White Blood Count 4.1 X10*3/uL (4.8-10.8)
[2021-06-04 21:58] LABS: Anion Gap 10 (12-20); Blood Urea Nitrogen 24 mg/dL (9-16); Carbon Dioxide 27 mmol/L (22-29); Chloride 108 mmol/L (96-108); Creatinine Clr Calc Pharmacy 33.5; Estimated Glomerular Filt Rate 49; Glucose Random 138 mg/dL (60-115); Magnesium 2.3 mg/dL (1.6-2.6); Potassium 4.3 mmol/L (3.3-5.1); Sodium 141 mmol/L (135-145)
[2021-06-04 21:59] LABS: INTERNATIONAL NORM RATIO 1.1 (0.9-1.1); Prothrombin Time 12.9 SEC (9.9-13.0)
[2021-06-04 22:02] LABS: Partial Thromboplastin Time 38.6 SEC (24.1-38.0)
[2021-06-04] MEDS: Acetaminophen 325 MG TABLET 650 MG PO (22:37)
[2021-06-04 22:38] VITALS: BP 114/64; PULSE 70; RESP 20
== END 2021-06-04 22:50 | disposition home or self-care (01) ==
PROVIDERS: Emergency Provider Internal Medicine
DX: R07.9 Chest pain, unspecified (principal); R07.2 Precordial pain; Z86.711 Personal history of pulmonary embolism; Z79.01 Long term (current) use of anticoagulants; Z79.899 Other long term (current) drug therapy
CPT/HCPCS: 36415; 71045; 80048; 83735; 84484; 85025; 85610; 85730; 93005; 99284

== ENCOUNTER 2021-07-27 17:49 | Emergency (ER) | payer MEDICARE, SELFPAY ==
--- NOTE | 2021-07-27 | ECG_ITS ---
Test Reason : TACHYCARDIC Blood Pressure : / mmHG Vent. Rate : 070 BPM Atrial Rate : 070 BPM P-R Int : 122 ms QRS Dur : 066 ms QT Int : 400 ms P-R-T Axes : 039 -11 046 degrees QTc Int : 432 ms Normal sinus rhythm Normal ECG When compared with ECG of 04-JUN-2021 21:10, Premature atrial complexes are no longer Present Referred By: Generic ED Physician Electronically Signed By:KINZA COTTON MD
[2021-07-27 17:59] VITALS: BP 156/85; PULSE 78; O2SAT 96
--- NOTE | 2021-07-27 18:12 | ED_ITS ---
HPI - Chest Pain General Chief Complaint: Chest Pain Stated Complaint: CHEST PAIN X'S 3 DAYS Time Seen by Provider: 07/27/21 18:03 Source: patient Mode of arrival: EMS Limitations: no limitations History of Present Illness HPI narrative: Patient is 75 years old with history of asthma, depression, diabetes hypertension pancreatitis pulmonary embolism on Eliquis complaining of pain in the right chest going to the left for last 3 days with palpitation on arrival patient's heart rate was in 80s normal sinus rhythm and patient is still complaining of palpitation. Also complaining of chronic shortness of breath but saturating 96% on room air patient has been here multiple times for same complaints of workup negative last admission was 2 months ago Related Data Home Medications Medication Instructions Recorded Confirmed benazepril 10 mg tablet 1 tab PO QAM 11/20/20 05/11/21 diltiazem HCl 120 mg 1 cap PO BID 11/20/20 05/11/21 capsule,extended release 12 hr donepezil 5 mg tablet 1 tab PO BEDTIME 11/20/20 05/11/21 montelukast 10 mg tablet 1 tab PO BEDTIME 11/20/20 05/11/21 sertraline 100 mg tablet 2 tab PO QAM 11/20/20 05/11/21 Previous Rx's Medication Instructions Recorded loperamide 2 mg capsule 2 mg PO Q6H PRN #14 cap 10/31/20 (Anti-Diarrheal (loperamide)) ondansetron HCl 4 mg tablet 4 mg PO Q6H PRN #14 tab 10/31/20 (Zofran) apixaban 5 mg tablet (Eliquis) 5 mg PO BID #90 tab 11/22/20 hydrocodone 5 mg-acetaminophen 300 1 tab PO BID PRN 3 Days #10 tab 11/23/20 mg tablet lidocaine 4 % topical patch 1 patch TOPICAL DAILY PRN #10 ea 03/26/21 atorvastatin 80 mg tablet 80 mg PO BEDTIME #30 tab 05/12/21 Allergies Allergy/AdvReac Type Severity Reaction Status Date / Time oxycodone [OXYCODONE] Allergy Unknown UNKNOWN Verified 06/04/21 21:14 Review of Systems Review of Systems: Yes all other systems are reviewed and are negative PMFSH Past Medical History Medical History Aortic insufficiency Asthma Depression Diabetes GERD (gastroesophageal reflux disease) High cholesterol Hypertension NSTEMI (non-ST elevated myocardial infarction) Pancreatitis Pulmonary embolism Family History Family History Other Family history non-contributory Social History Social History Household Members: Family and Other Household Members Other:: daughter is refining supervisor Housing: Apartment Do you presently have visiting nurse or other home services: No Alcohol intake: never Patient Tobacco Use Status: Never used Tobacco Second Hand Smoke Exposure: No Use of substances other than those prescribed or required for medical reasons: No Advance Directives: No Advance Directives Information Provided: Yes service: No Current occupational status: unemployed and disabled Physical Exam Vital Signs: Vital Signs: Last Vital Signs Temp 98.6 F 07/27/21 18:14 Pulse 68 07/27/21 18:14 Resp 18 07/27/21 18:14 BP 124/80 07/27/21 18:14 Pulse Ox 95 07/27/21 18:14 Body Mass Index 18.4 Appearance: Alert. Oriented X3. No acute distress. Eyes: No pallor or icterus ENT: Pharynx normal. Oral Mucosa moist Neck: Normal inspection. Neck supple. CVS: Normal heart rate and rhythm. Pulses normal. Respiratory: No respiratory distress. Equal air entry bilateral, no wheezing /rales/rhonchi Abdomen: Soft and nontender. Bowel sounds are present, no mass palpable, no CVA tenderness Skin: Skin warm and dry. Normal skin color. Normal skin turgor. Extremities: No lower extremity edema. No calf tenderness Neuro: Oriented X 3. MDM - Chest Pain MDM Narrative Medical decision making narrative: Patient has atypical chest pain and palpitation no cardiac arrhythmia noted during stay in the ER cardiac enzymes negative patient on Eliquis lying comfortably in the ER. Will discharge patient home advised to follow with PCP Medical Records Data Attestation: I reviewed the patient's medical records. Lab Data Attestation: I reviewed the patient's lab results. Result diagrams: 07/27/21 18:59 07/27/21 18:59 Labs: Lab Results 07/27/21 07/27/21 07/27/21 Range/Units 18:59 18:59 18:59 WBC 4.1 L (4.8-10.8) X10*3/uL RBC 4.18 L (4.20-5.50) X10*6/uL Hgb 12.5 (12.0-16.0) g/dl Hct 38.0 (37.0-47.0) % MCV 90.9 (80.0-98.0) fL MCH 29.9 (27.0-33.0) pg MCHC 32.9 (31.0-35.0) g/dl RDW 12.5 (11.0-16.0) % Plt Count 167 (160-400) X10*3/uL MPV 11.1 (9.4-12.3) fL Immature Gran % (Auto) 0.2 (0.0-0.4) % Neut % (Auto) 55.4 (45-73) % Lymph % (Auto) 28.6 (20-40) % Hyde % (Auto) 12.6 H (2-11) % Eos % (Auto) 2.7 (0-4) % Baso % (Auto) 0.5 (0-2) % Lymph # (Auto) 1.2 (1.2-4.9) X10*3/uL [place] # (Auto) 0.5 (0.1-1.2) X10*3/uL Eos # (Auto) 0.1 (0.0-0.4) X10*3/uL Baso # (Auto) 0.0 (0.0-0.2) X10*3/uL Abs Immat Gran (auto) 0.01 (0.00-0.03) X10*3/uL Absolute Neuts (auto) 2.3 (2.0-8.3) x10*3/uL Absolute Nucleated RBC 0.000 (0.0-0.012) X10*3/uL Nucleated RBC % (auto) 0.0 (0.0-0.2) /100WBC Sodium 141 (135-145) mmol/L Potassium 4.4 (3.3-5.1) mmol/L Chloride 108 (96-108) mmol/L Carbon Dioxide 26 (22-29) mmol/L Anion Gap 11 L (12-20) BUN 19 H (9-16) mg/dL Creatinine 1.06 (0.5-1.4) mg/dL Estim Creat Clear Calc 31.0 Estimated GFR 51 Random Glucose 134 H (60-115) mg/dL Calcium 8.8 (8.4-10.2) mg/dL Troponin I High Sens < 3.5 (<3.5-17.0) ng/L ECG Data ECG #1: Attestation: I personally reviewed and interpreted this ECG as follows: Interpretation: Normal sinus rhythm heart rate 70 beats per minute normal intervals normal axis no acute ST wave changes no acute ischemia Discharge Plan Discharge Clinical Impression: Heart palpitations Chest pain Qualifiers: Chest pain type: precordial pain Qualified Code(s): R07.2 - Precordial pain Patient Disposition: Home, Self-Care Instructions: Chest Pain (ED), Heart Palpitations (ED) Additional Instructions: Continue yourmedications and follow with PCP Report to ER if worsening of symptoms Prescriptions: No Action hydrocodone-acetaminophen 5-300 mg tablet 1 tab PO BID PRN (Reason: pain) 3 Days Qty: 10 RF: 0 ondansetron HCl [Zofran] 4 mg tablet 4 mg PO Q6H PRN (Reason: nausea and vomiting) Qty: 14 RF: 0 loperamide [Anti-Diarrheal (loperamide)] 2 mg capsule 2 mg PO Q6H PRN (Reason: loose stool) Qty: 14 RF: 0 donepezil 5 mg tablet 1 tab PO BEDTIME RF: 0 sertraline 100 mg tablet 2 tab PO QAM RF: 0 diltiazem HCl 120 mg capsule,extended release 12 hr 1 cap PO BID RF: 0 montelukast 10 mg tablet 1 tab PO BEDTIME RF: 0 benazepril 10 mg tablet 1 tab PO QAM RF: 0 Eliquis 5 mg tablet 5 mg PO BID Qty: 90 RF: 0 lidocaine 4 % adhesive patch,medicated 1 patch topical DAILY PRN (Reason: pain) Qty: 10 RF: 0 atorvastatin 80 mg Tablet 80 mg PO BEDTIME Qty: 30 RF: 0 Print Language: Amharic
[2021-07-27 18:14] VITALS: BP 124/80; PULSE 68; RESP 18; TEMP 37; O2SAT 95; BMI 18.4
[2021-07-27 19:03] LABS: MANUAL DIFF FLAG NO
[2021-07-27 19:05] LABS: Basophils Percent Auto 0.5 % (0-2); Eosinophils Absolute Auto 0.1 X10*3/uL (0.0-0.4); Eosinophils Percent Auto 2.7 % (0-4); Hemoglobin 12.5 g/dl (12.0-16.0); Imm Gran Abs Auto 0.01 X10*3/uL (0.00-0.03); Imm Gran Pct Auto 0.2 % (0.0-0.4); Lymphocytes Absolute Auto 1.2 X10*3/uL (1.2-4.9); Lymphocytes Percent Auto 28.6 % (20-40); Mean Corpuscular HGB Conc 32.9 g/dl (31.0-35.0); Mean Corpuscular Hemoglobin 29.9 pg (27.0-33.0); Mean Corpuscular Volume 90.9 fL (80.0-98.0); Mean Platelet Volume 11.1 fL (9.4-12.3); Monocytes Absolute Auto 0.5 X10*3/uL (0.1-1.2); Monocytes Percent Auto 12.6 % (2-11); Neutrophils Absolute Auto 2.3 x10*3/uL (2.0-8.3); Neutrophils Percent Auto 55.4 % (45-73); Platelet Count 167 X10*3/uL (160-400); Red Blood Count 4.18 X10*6/uL (4.20-5.50); Red Cell Distribution Width 12.5 % (11.0-16.0); White Blood Count 4.1 X10*3/uL (4.8-10.8)
[2021-07-27 19:22] LABS: Anion Gap 11 (12-20); Blood Urea Nitrogen 19 mg/dL (9-16); Calcium 8.8 mg/dL (8.4-10.2); Carbon Dioxide 26 mmol/L (22-29); Chloride 108 mmol/L (96-108); Estimated Glomerular Filt Rate 51; Glucose Random 134 mg/dL (60-115); Potassium 4.4 mmol/L (3.3-5.1); Sodium 141 mmol/L (135-145)
[2021-07-27 19:26] LABS: Troponin-I High Sensitivity < 3.5 ng/L (<3.5-17.0)
[2021-07-27] MEDS: traMADoL HCL 50 MG TABLET PO (19:55)
== END 2021-07-27 19:59 | disposition home or self-care (01) ==
PROVIDERS: Emergency Provider Internal Medicine; PCP Family Medicine
DX: R07.2 Precordial pain (principal); R06.02 Shortness of breath; E11.9 Type 2 diabetes mellitus without complications; I10 Essential (primary) hypertension; Z86.711 Personal history of pulmonary embolism; Z79.01 Long term (current) use of anticoagulants; Z79.899 Other long term (current) drug therapy; Z79.02 Long term (current) use of antithrombotics/antiplatelets; Z86.16 Personal history of COVID-19
CPT/HCPCS: 36415; 80048; 84484; 85025; 93005; 99284

== ENCOUNTER 2021-09-17 11:17 | Emergency (ER) | payer MEDICARE, SELFPAY ==
--- NOTE | ~2021-09-17 | CT_ITS ---
EXAMINATION: CT ABDOMEN AND PELVIS WITH CONTRAST CLINICAL INFORMATION: Central abdominal pain with nausea, vomiting and diarrhea for 3 days. COMPARISON: CT abdomen/pelvis dated from 02/11/2021. TECHNIQUE: Multidetector volumetric images were obtained from the superior aspect of the liver through the pubic symphysis following administration 85 mL of Omnipaque 350 intravenous contrast. Sagittal and coronal reformatted images were obtained on the technologist's workstation. Oral contrast: No This CT examination was performed using dose optimization techniques as appropriate, variously including the following: *Automated exposure control *Adjustment of mA and/or kV according to patient size (this includes techniques or standardized protocols for targeted exams where dose is matched to indication/reason for exam; i.e. extremities or head) *Use of iterative reconstruction technique DLP: 336 mGy-cm FINDINGS: LUNG BASES: Evaluation of pulmonary nodules is limited by motion. No focal consolidation, pleural effusion or pulmonary masses are identified. LIVER, GALLBLADDER, AND BILIARY TREE: There is similar in degree of intra and extrahepatic biliary ductal dilatation with the CBD that measures up to 1 cm in diameter. These might be expected in a post cholecystectomy state. No choledocholithiasis or obstructive abnormalities are identified. The liver is otherwise normal in size, shape and attenuation without focal abnormalities. PANCREAS: No focal parenchymal lesions. The main pancreatic duct is not dilated. No peripancreatic free fluid or fat stranding. SPLEEN: Unremarkable. ADRENAL GLANDS: Unremarkable. 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 Nephrograms are symmetric without suspicious focal parenchymal lesions. No hydronephrosis. No nephrolithiasis. No significant perinephric fat stranding. BLADDER: Redemonstration of abnormal diffuse urinary bladder wall thickening without significant change since January. Very mild perivesical fat stranding is also grossly unchanged. No intraluminal calculi. GASTROINTESTINAL TRACT: Again noted is a small to moderate size hiatal hernia. The stomach and the small bowel are nondilated. Appendix is not visualized. There are no inflammatory changes at the cecal base or right lower quadrant to suspect acute appendicitis. There are indeterminate hyperattenuating debris layering in the stomach. There are no pericolic inflammatory changes or evidence of bowel obstruction. In the cecum and ascending colon there are indeterminate and somewhat metallic in density foreign bodies. Smaller foreign bodies are identified in the distal transverse colon and rectosigmoid junction. ABDOMINAL WALL: No significant hernia is appreciated. LYMPH NODES: No lymphadenopathy by size criteria. VASCULAR: Atherosclerotic disease. The abdominal aorta is of normal diameter. PELVIC VISCERA: Retroverted uterus with endometrial thickening measuring up to 0.9 cm. No pelvic masses. OSSEOUS STRUCTURES: No acute or aggressive osseous abnormalities. Thoracolumbar spondylosis. CT/CT abdomen pelvis w con IMPRESSION: No evidence of active inflammatory bowel changes nor bowel obstruction. Indeterminate and somewhat metallic density bodies in the lumen colon, predominantly cecum and ascending colon. Correlate for ingestion of foreign bodies. Abnormal endometrial thickening. Recommend correlation with a dedicated pelvic ultrasound. Stable diffuse urinary bladder wall thickening. Correlate with urinalysis. Stable biliary ductal dilatation, likely related with post cholecystectomy state and patient's age.
[2021-09-17 11:27] VITALS: BP 132/75; BP 150/74; PULSE 82; PULSE 95; TEMP 37.1; O2SAT 94; O2SAT 95; BMI 22.4
--- NOTE | 2021-09-17 11:27 | ECG_ITS ---
Test Reason : NAUSEA Blood Pressure : / mmHG Vent. Rate : 092 BPM Atrial Rate : 092 BPM P-R Int : 130 ms QRS Dur : 066 ms QT Int : 322 ms P-R-T Axes : 000 -27 148 degrees QTc Int : 398 ms Limb lead reversal Normal sinus rhythm Inferior infarct , age undetermined Abnormal ECG When compared with ECG of 27-JUL-2021 19:08, Inferior infarct is now Present Limb leads reversal Referred By: Lizette Mas Electronically Signed By:Sher Dugan
[2021-09-17 11:36] LABS: Glucose, Whole Blood 98 mg/dL (60-115)
--- NOTE | 2021-09-17 11:36 | ED_ITS ---
HPI - Nausea/Vomiting/Diarrhea General Chief complaint: Nausea/Vomiting/Diarrhea Stated complaint: ABD PAIN,NAUSEA,VOMITING,+VACCINE & BOOSTER Time Seen by Provider: 09/17/21 11:26 Source: patient, EMS and old records reviewed Mode of arrival: EMS Limitations: no limitations History of Present Illness HPI Narrative: 75 y/o female with history of HTN, COVID-19 in Oct 2020, asthma, depression, PE on Eliquis, pancreatitis, GERD who presents to the ER with 3-4 days of nausea, vomiting and diarrhea. She also reports diffuse abdominal discomfort that started after vomiting. The pain comes and goes. Worse after eating and worse when vomiting. She states yesterday she had 4 episodes of loose diarrhea with no blood. She vomited twice yesterday. She also vomited once this morning. No blood in her vomitus. She has had no fevers at home but reports chills. She denies any chest pain or shortness of breath. No one else at home is sick. MD elicited complaint: nausea, vomiting, diarrhea and abdominal pain Onset (ago): day(s) (4) Description of vomiting: food contents and bilious Description of diarrhea: loose Associated nausea: Yes Location of pain: diffuse Radiation: diffuse Pain consistency: intermittent Quality: aching Exacerbating factors: eating and movement Relieving factors: none Associated symptoms: fever/chills, loss of appetite, malaise, nausea/vomiting and weakness Related Data Home Medications Medication Instructions Recorded Confirmed benazepril 10 mg tablet 1 tab PO QAM 11/20/20 05/11/21 diltiazem HCl 120 mg 1 cap PO BID 11/20/20 05/11/21 capsule,extended release 12 hr donepezil 5 mg tablet 1 tab PO BEDTIME 11/20/20 05/11/21 montelukast 10 mg tablet 1 tab PO BEDTIME 11/20/20 05/11/21 sertraline 100 mg tablet 2 tab PO QAM 11/20/20 05/11/21 Previous Rx's Medication Instructions Recorded loperamide 2 mg capsule 2 mg PO Q6H PRN #14 cap 10/31/20 (Anti-Diarrheal (loperamide)) ondansetron HCl 4 mg tablet 4 mg PO Q6H PRN #14 tab 10/31/20 (Zofran) apixaban 5 mg tablet (Eliquis) 5 mg PO BID #90 tab 11/22/20 hydrocodone 5 mg-acetaminophen 300 1 tab PO BID PRN 3 Days #10 tab 11/23/20 mg tablet lidocaine 4 % topical patch 1 patch TOPICAL DAILY PRN #10 ea 03/26/21 atorvastatin 80 mg tablet 80 mg PO BEDTIME #30 tab 05/12/21 ondansetron 4 mg disintegrating 4 mg PO Q8H PRN #10 tab 09/17/21 tablet Allergies Allergy/AdvReac Type Severity Reaction Status Date / Time oxycodone [OXYCODONE] Allergy Unknown UNKNOWN Verified 06/04/21 21:14 Review of Systems Review of Systems: Constitutional: No Fever, + Chills ENT/Mouth: No sore throat, No Rhinorrhea, No Swallowing Difficulty Eyes: No Eye Pain, No Swelling, No Redness Cardiovascular: No Chest Pain, No SOB, No Orthopnea, No Edema Respiratory: No Cough, No Sputum, No Wheezing, No dyspnea Gastrointestinal: + Nausea, + Vomiting, + Diarrhea, + abdominal Pain, No Hematochezia, No Melena Genitourinary: No Dysuria, No Urinary Frequency, No Hematuria Musculoskeletal: No joint pain, No Myalgias Skin: No Skin Lesions, No rash Neuro: No Weakness, No Numbness, No Dizziness, No Headache Psych: No Anxiety/Panic, No Depression Heme/Lymph: No Bruising, No Lymphadenopathy Endocrine: No Polyuria, No Polydipsia Gastrointestinal: Gastrointestinal: Reports nausea PMFSH Past Medical History Medical History Aortic insufficiency Asthma Depression Diabetes GERD (gastroesophageal reflux disease) High cholesterol Hypertension NSTEMI (non-ST elevated myocardial infarction) Pancreatitis Pulmonary embolism Family History Family History Other Family history non-contributory Social History Social History Household Members: Family and Other Household Members Other:: daughter is pest control chemical technician Housing: Apartment Do you presently have visiting nurse or other home services: No Alcohol intake: never Patient Tobacco Use Status: Never used Tobacco Second Hand Smoke Exposure: No Advance Directives: No Advance Directives Information Provided: Yes service: No Current occupational status: unemployed and disabled Physical Exam Vital Signs: Vital Signs: Last Vital Signs Temp 98.7 F 09/17/21 11:27 Pulse 82 09/17/21 11:27 BP 132/75 09/17/21 11:27 Pulse Ox 95 09/17/21 11:27 BMI result Body Mass Index 22.4 Appearance: Alert. Oriented X3. No acute distress. Eyes: Pupils equal, round and reactive to light. ENT: Pharynx normal. Mucous membranes are moist. Neck: Normal inspection. Neck supple. CVS: Normal heart rate and rhythm. Pulses normal. Respiratory: No respiratory distress. Breath sounds normal. Abdomen: Soft, mild diffuse tenderness throughout without any rebound or guarding. Positive +BS x4 Skin: Skin warm and dry. Normal skin color. Normal skin turgor. No rashes. Extremities: No lower extremity edema. Thin and frail Neuro: Oriented X 3. No motor deficit. No sensory deficit. Course Course Course Narrative: 75-year-old female presents to the ER with nausea vomiting and diarrhea for the last 3 or 4 days. She also reports some mild diffuse abdominal pain. Her abdomen is soft with normal vital signs on arrival. Will check basic lab workup and CT scan for further evaluation. Reevaluation(s) Reevaluation #1: CBC is normal. Lab workup is otherwise unremarkable. CT scan is pending. She feels better after Zofran IV fluids. Reevaluation #2: CT scan is showing it indeterminate and somewhat metallic density bodies in the lumen of the colon predominantly cecum and ascending colon. Suggest correlating it with ingestion of foreign bodies. Patient denies ingestion of any known metallic foreign body. No recent grilling at home or use of metallic brushes to clean any of the services which she cooked done. Will have surgery take a look at her CT scan and provide recommendations. Reevaluation #3: Dr. Ayala reviewed the images. Small pieces of what appeared to be metal are intraluminal - there is no evidence of obstruction and with a normal white blood cell count these foreign body should pass on their own. diplomatic interpreter/translator was used to discuss results and management with the patient. She is stable for discharge home at this time with plan to follow up with her primary care doctor within a week. She has been in the ER for several hours with no episodes of vomiting or diarrhea. We discussed supportive care for possible gastroenteritis he will% home with a antiemetic as needed. Patient agrees with plan. Consultations Consultation #1: General surgery, Dr. Jamie ROMERO - Nausea/Vomiting/Diarrhea Medical Records Attestation: I reviewed the patient's medical records. Lab Data Attestation: I reviewed the patient's lab results. Result diagrams: 09/17/21 11:49 09/17/21 11:49 Labs: Lab Results 09/17/21 09/17/21 09/17/21 Range/Units 11:28 11:49 11:49 WBC 4.9 (4.8-10.8) X10*3/uL RBC 4.70 (4.20-5.50) X10*6/uL Hgb 13.7 (12.0-16.0) g/dl Hct 42.4 (37.0-47.0) % MCV 90.2 (80.0-98.0) fL MCH 29.1 (27.0-33.0) pg MCHC 32.3 (31.0-35.0) g/dl RDW 12.8 (11.0-16.0) % Plt Count 202 (160-400) X10*3/uL MPV 10.3 (9.4-12.3) fL Immature Gran % (Auto) 0.4 (0.0-0.4) % Neut % (Auto) 59.4 (45-73) % Lymph % (Auto) 22.5 (20-40) % Arthur % (Auto) 15.7 H (2-11) % Eos % (Auto) 1.6 (0-4) % Baso % (Auto) 0.4 (0-2) % Lymph # (Auto) 1.1 L (1.2-4.9) X10*3/uL Arthur # (Auto) 0.8 (0.1-1.2) X10*3/uL Eos # (Auto) 0.1 (0.0-0.4) X10*3/uL Baso # (Auto) 0.0 (0.0-0.2) X10*3/uL Abs Immat Gran (auto) 0.02 (0.00-0.03) X10*3/uL Absolute Neuts (auto) 2.9 (2.0-8.3) x10*3/uL Absolute Nucleated RBC 0.000 (0.0-0.012) X10*3/uL Nucleated RBC % (auto) 0.0 (0.0-0.2) /100WBC Sodium 139 (135-145) mmol/L Potassium 4.0 (3.3-5.1) mmol/L Chloride 108 (96-108) mmol/L Carbon Dioxide 22 (22-29) mmol/L Anion Gap 13 (12-20) BUN 20 H (9-16) mg/dL Creatinine 1.14 (0.5-1.4) mg/dL Estim Creat Clear Calc 29.1 Estimated GFR 46 POC Glucose 98 (60-115) mg/dL Random Glucose 105 (60-115) mg/dL Calcium 9.4 D (8.4-10.2) mg/dL Magnesium 2.2 (1.6-2.6) mg/dL Total Bilirubin 0.6 (0.0-1.0) mg/dL Direct Bilirubin 0.2 (0.0-0.5) mg/dL AST 33 H (5-31) U/L ALT 22 (0-31) U/L Alkaline Phosphatase 94 (39-117) U/L Total Protein 6.9 (6.5-8.0) g/dL Albumin 3.8 (3.5-5.0) g/dL Lipase 43 (8-78) U/L Urine Color Urine Appearance Urine pH (5.0-8.0) Ur Specific [place] (1.005-1.025) Urine Protein (NEG-TRACE) MG/DL Urine Glucose (UA) (NEG) MG/DL Urine Ketones (NEG) MG/DL Urine Blood (NEG) Urine Nitrite (NEG) Ur Leukocyte Esterase (NEG) Urine RBC (0) /HPF Urine WBC (0-4) /HPF Ur Squamous Epith Cells /LPF Urine Bacteria /LPF Hyaline Casts /LPF COVID-19 (HEMA) (Negative) COVID-19 Clin Com 09/17/21 09/17/21 Range/Units 11:49 12:27 WBC (4.8-10.8) X10*3/uL RBC (4.20-5.50) X10*6/uL Hgb (12.0-16.0) g/dl Hct (37.0-47.0) % MCV (80.0-98.0) fL MCH (27.0-33.0) pg MCHC (31.0-35.0) g/dl RDW (11.0-16.0) % Plt Count (160-400) X10*3/uL MPV (9.4-12.3) fL Immature Gran % (Auto) (0.0-0.4) % Neut % (Auto) (45-73) % Lymph % (Auto) (20-40) % Arthur % (Auto) (2-11) % Eos % (Auto) (0-4) % Baso % (Auto) (0-2) % Lymph # (Auto) (1.2-4.9) X10*3/uL Arthur # (Auto) (0.1-1.2) X10*3/uL Eos # (Auto) (0.0-0.4) X10*3/uL Baso # (Auto) (0.0-0.2) X10*3/uL Abs Immat Gran (auto) (0.00-0.03) X10*3/uL Absolute Neuts (auto) (2.0-8.3) x10*3/uL Absolute Nucleated RBC (0.0-0.012) X10*3/uL Nucleated RBC % (auto) (0.0-0.2) /100WBC Sodium (135-145) mmol/L Potassium (3.3-5.1) mmol/L Chloride (96-108) mmol/L Carbon Dioxide (22-29) mmol/L Anion Gap (12-20) BUN (9-16) mg/dL Creatinine (0.5-1.4) mg/dL Estim Creat Clear Calc Estimated GFR POC Glucose (60-115) mg/dL Random Glucose (60-115) mg/dL Calcium (8.4-10.2) mg/dL Magnesium (1.6-2.6) mg/dL Total Bilirubin (0.0-1.0) mg/dL Direct Bilirubin (0.0-0.5) mg/dL AST (5-31) U/L ALT (0-31) U/L Alkaline Phosphatase (39-117) U/L Total Protein (6.5-8.0) g/dL Albumin (3.5-5.0) g/dL Lipase (8-78) U/L Urine Color YELLOW Urine Appearance CLEAR Urine pH 6.0 (5.0-8.0) Ur Specific [place] >= 1.030 H (1.005-1.025) Urine Protein NEG (NEG-TRACE) MG/DL Urine Glucose (UA) NEG (NEG) MG/DL Urine Ketones 15 (NEG) MG/DL Urine Blood TRACE (NEG) Urine Nitrite NEG (NEG) Ur Leukocyte Esterase TRACE H (NEG) Urine RBC 0-2 (0) /HPF Urine WBC 0-2 (0-4) /HPF Ur Squamous Epith Cells TRACE /LPF Urine Bacteria TRACE /LPF Hyaline Casts 0-2 /LPF COVID-19 (HEMA) Negative (Negative) COVID-19 Clin Com See Note ECG Data Attestation: I personally reviewed and interpreted this ECG as follows: ECG interpretation date: 09/17/21 ECG interpretation time: 14:49 Prior ECG tracings: available for review Interpretation: Normal sinus rhythm, heart rate 92 beats per minute, normal [place] interval, no ST segment elevations or depressions. Critical Care Time Critical Care Time Critical Care Time: No Discharge Plan Discharge Clinical Impression: Gastroenteritis Patient Disposition: Home, Self-Care Instructions: Gastroenteritis (ED), Foreign Body Ingestion (ED) Additional Instructions: Your lab workup today was normal. Your CT scan showed a few small metallic foreign bodies on the inside of your colon. The surgeon reviewed the imaging and these small pieces of metal should pass on their own. If you have worsening pain or develop fever or any other concerning symptoms call 911 or come back to the ER for further evaluation. Recommend following up with your doctor next week. Tu examen de laboratorio de hoy fue normal. Hernandez tomograf?a computarizada mostr? algunos katy?os cuerpos extra?os met?licos en el interior de hernandez colon. El cirujano mahamed? las im?genes y estas katy?as piezas de metal deben pasar por s? solas. Si tiene un dolor que empeora o desarrolla fiebre o cualquier otro s?ntoma relacionado, llame al 911 o regrese a la marilia de emergencias para yenifer evaluaci?n adicional. Recomiende hacer un seguimiento con hernandez m?dico la pr?xima semana. Prescriptions: New ondansetron 4 mg tablet,disintegrating 4 mg PO Q8H PRN (Reason: nausea and vomiting) Qty: 10 RF: 0 No Action hydrocodone-acetaminophen 5-300 mg tablet 1 tab PO BID PRN (Reason: pain) 3 Days Qty: 10 RF: 0 ondansetron HCl [Zofran] 4 mg tablet 4 mg PO Q6H PRN (Reason: nausea and vomiting) Qty: 14 RF: 0 loperamide [Anti-Diarrheal (loperamide)] 2 mg capsule 2 mg PO Q6H PRN (Reason: loose stool) Qty: 14 RF: 0 donepezil 5 mg tablet 1 tab PO BEDTIME RF: 0 sertraline 100 mg tablet 2 tab PO QAM RF: 0 diltiazem HCl 120 mg capsule,extended release 12 hr 1 cap PO BID RF: 0 montelukast 10 mg tablet 1 tab PO BEDTIME RF: 0 benazepril 10 mg tablet 1 tab PO QAM RF: 0 Eliquis 5 mg tablet 5 mg PO BID Qty: 90 RF: 0 lidocaine 4 % adhesive patch,medicated 1 patch topical DAILY PRN (Reason: pain) Qty: 10 RF: 0 atorvastatin 80 mg Tablet 80 mg PO BEDTIME Qty: 30 RF: 0 Referrals: Tiffany Kent MD [Primary Care Provider] - 1 week (Abdominal pain, metallic foreign body ingestion.) Print Language: Samoan
[2021-09-17] MEDS: 0.9 % Sodium Chloride 1,000 ML 999 ML IVCONT (11:52)
[2021-09-17 11:54] LABS: MANUAL DIFF FLAG NO
[2021-09-17 11:56] LABS: Basophils Percent Auto 0.4 % (0-2); Eosinophils Absolute Auto 0.1 X10*3/uL (0.0-0.4); Eosinophils Percent Auto 1.6 % (0-4); Hematocrit 42.4 % (37.0-47.0); Hemoglobin 13.7 g/dl (12.0-16.0); Imm Gran Abs Auto 0.02 X10*3/uL (0.00-0.03); Imm Gran Pct Auto 0.4 % (0.0-0.4); Lymphocytes Absolute Auto 1.1 X10*3/uL (1.2-4.9); Lymphocytes Percent Auto 22.5 % (20-40); Mean Corpuscular HGB Conc 32.3 g/dl (31.0-35.0); Mean Corpuscular Hemoglobin 29.1 pg (27.0-33.0); Mean Corpuscular Volume 90.2 fL (80.0-98.0); Mean Platelet Volume 10.3 fL (9.4-12.3); Monocytes Absolute Auto 0.8 X10*3/uL (0.1-1.2); Monocytes Percent Auto 15.7 % (2-11); Neutrophils Absolute Auto 2.9 x10*3/uL (2.0-8.3); Neutrophils Percent Auto 59.4 % (45-73); Platelet Count 202 X10*3/uL (160-400); Red Cell Distribution Width 12.8 % (11.0-16.0); White Blood Count 4.9 X10*3/uL (4.8-10.8)
[2021-09-17 12:13] LABS: COVID-19 Test Negative (Negative)
[2021-09-17 12:16] LABS: Alanine Aminotransferase 22 U/L (0-31); Albumin Level 3.8 g/dL (3.5-5.0); Alkaline Phosphatase 94 U/L (39-117); Anion Gap 13 (12-20); Aspartate Amino Transferase 33 U/L (5-31); Bilirubin Direct 0.2 mg/dL (0.0-0.5); Bilirubin Total 0.6 mg/dL (0.0-1.0); Blood Urea Nitrogen 20 mg/dL (9-16); Calcium 9.4 mg/dL (8.4-10.2); Carbon Dioxide 22 mmol/L (22-29); Chloride 108 mmol/L (96-108); Creatinine Clr Calc Pharmacy 29.1; Estimated Glomerular Filt Rate 46; Glucose Random 105 mg/dL (60-115); Lipase 43 U/L (8-78); Magnesium 2.2 mg/dL (1.6-2.6); Sodium 139 mmol/L (135-145); Total Protein 6.9 g/dL (6.5-8.0)
[2021-09-17 12:33] LABS: Appearance Urine CLEAR; Color Urine YELLOW; Glucose Urine UA NEG (NEG); Leukocyte Esterase Urine TRACE (NEG); Nitrite Urine NEG (NEG); Specific Gravity - Urine >= 1.030 (1.005-1.025); UACC Culture Trigger YES; Urine Blood TRACE (NEG); Urine Ketones 15 MG/DL (NEG); Urine Protein NEG (NEG-TRACE)
[2021-09-17] MEDS: ondansetron HCL 4 MG/2 ML VIAL IVPUSH (12:38)
[2021-09-17 12:47] LABS: Squamous Epithelial Cell Urine TRACE /LPF
[2021-09-17 12:48] LABS: Hyaline Casts Urine 0-2 /LPF; RBC Urine 0-2 /HPF (0); WBC Urine 0-2 /HPF (0-4)
[2021-09-17 12:49] LABS: Bacteria Urine TRACE /LPF
[2021-09-17] MEDS: iohexoL 350 MG/ML 100 ML INFUS..BTL IV (13:53)
[2021-09-17 16:43] LABS: Glucose, Whole Blood 75 mg/dL (60-115)
== END 2021-09-17 17:12 | disposition home or self-care (01) ==
PROVIDERS: Physician Assistant; Emergency Provider Emergency Medicine; PCP Family Medicine
DX: K52.9 Noninfective gastroenteritis and colitis, unspecified (principal); Z20.822 Contact with and (suspected) exposure to COVID-19; R11.2 Nausea with vomiting, unspecified; R10.9 Unspecified abdominal pain; I10 Essential (primary) hypertension; J45.909 Unspecified asthma, uncomplicated; Z86.711 Personal history of pulmonary embolism; Z79.01 Long term (current) use of anticoagulants
CPT/HCPCS: 36415; 74177; 80048; 80076; 81001; 82947; 83690; 83735; 85025; 87086; 87635; 93005; 96361; 96374; 99283; 99284; J2405; Q9967

== ENCOUNTER → 2021-11-07 13:59 | Outpatient (BNVA) | payer MEDICARE, SELFPAY | PROVIDERS: PCP Family Medicine; Visit Provider Internal Medicine Endocrinology, Diabetes & Metabolism | DX: E04.2 Nontoxic multinodular goiter (principal) | CPT/HCPCS: 99212 ==

== ENCOUNTER 2021-12-03 09:17 | Outpatient (REF) | payer MEDICARE, SELFPAY ==
--- NOTE | ~2021-12-03 | US_ITS ---
EXAMINATION: US THYROID CLINICAL INFORMATION: Nontoxic multinodular goiter. COMPARISON: Ultrasound soft tissue head/neck thyroid dated 05/03/2020 and thyroid biopsy 09/24/2016 TECHNIQUE: Linear transducer grayscale and color Doppler examination with attention to the region of the thyroid. FINDINGS: SIZE: Measurements of the thyroid lobes and nodules are given in sagittal, anteroposterior and transverse dimensions respectively. Right Thyroid Lobe: 4.4 x 1.0 x 1.0 cm, volume 2.3 mL. Previously 3.9 x 1.0 x 1.1 cm, volume 2.3 mL. Parenchyma: The gland echotexture is heterogeneous. Thyroid vascularity is normal. Left Thyroid Lobe: 4.2 x 1.8 x 1.4 cm, volume 5.5 mL. Previously 4.4 x 1.3 x 1.4 cm, volume 4.1 mL. Parenchyma: The gland echotexture is heterogeneous. Thyroid vascularity is normal. Isthmus: 0.2 cm in maximum AP dimension. Previously 0.2 cm. Estimated total number of nodules greater than or equal to 1 cm: 1. Foam Caster nodules are described as follows: 1. Location: Right mid. Size: 0.7 x 0.5 x 0.5 cm, volume 0.08 mL. Previously: New since the previous study. Nodule characteristics: Composition: Solid (2). Echogenicity: Isoechoic (1). Shape: Not taller than wide (0). Margins: Smooth (0). Echogenic Foci: None (0). ACR TI-RADS total points: 3 ACR TI-RADS category: 3 2. Location: Right superior/mid. Size: 0.5 x 0.2 x 0.4 cm, volume 0.1 mL. Previously: 0.4 x 0.2 x 0.3 cm, volume 0.1 mL. Nodule characteristics: Composition: Mixed cystic and solid (1). Echogenicity: Isoechoic (1). Shape: Not taller than wide (0). Margins: Smooth (0). Echogenic Foci: None (0). ACR TI-RADS total points: 2 ACR TI-RADS category: 2 Significant change in size (>/= 20% in 2 dimensions and minimal increase of 2 mm or 50% or greater increase in volume): No Change in features: No Change in ACR TI-RADS risk category: No 3. Location: Left middle/inferior. Size: 2.3 x 1.6 x 1.5 cm, volume 2.8 mL. Previously: 2.2 x 1.3 x 1.4 cm, volume 2.1 mL. Nodule characteristics: Composition: Solid/almost completely solid (2). Echogenicity: Isoechoic (1). Shape: Taller than wide (3). Margins: Smooth (0). Echogenic Foci: None (0). ACR TI-RADS total points: 6 ACR TI-RADS category: 4 Significant change in size (>/= 20% in 2 dimensions and minimal increase of 2 mm or 50% or greater increase in volume): No Change in features: No Change in ACR TI-RADS risk category: No NODES: No lymphadenopathy is seen in the tissue surrounding the thyroid gland. US/US thyroid IMPRESSION: A 2.3 cm left TR 4 thyroid nodules unchanged from prior it was previously sampled in 2017. Recommend correlation with prior pathology. A new 0.7 cm TR 3 right thyroid nodule and a stable 0.5 cm TR 2 thyroid nodule, which do not meet criteria for imaging follow-up. Heterogeneous thyroid gland which could be seen in the setting of thyroiditis. ACR TI-RADS RECOMMENDATION REFERENCE: Ultrasound-guided fine-needle aspiration, followup ultrasound, no further follow up. * TR1 (0 point) and TR 2 (2 points): No FNA or follow up * TR3 (3 points): FNA if more than or equal to 2.5 cm in maximum dimension, followup ultrasound in 1, 3 and 5 years if 1.5 to 2.4 cm in maximum dimension. * TR4 (4-6 points): FNA if more than or equal to 1.5 cm in maximum dimension, followup ultrasound in 1, 2, 3 and 5 years if 1 to 1.4 cm in maximum dimension. * TR5 (more than or equal to 7 points): FNA if more than or equal to 1 cm in maximum dimension, followup ultrasound every year for 5 years if 0.5 to 0.9 cm in maximum dimension. * TR3, TR4 or TR5 nodules that are below the size threshold for follow up receive no follow up.
== END 2021-12-03 09:18 | disposition home or self-care (01) ==
LOC: HO.US 09:17
PROVIDERS: PCP Family Medicine; Visit Provider Internal Medicine Endocrinology, Diabetes & Metabolism
DX: E04.2 Nontoxic multinodular goiter (principal)
CPT/HCPCS: 76536

== ENCOUNTER 2021-12-29 08:04 | Emergency (ER) | payer OTHER, SELFPAY ==
--- NOTE | ~2021-12-29 | CT_ITS ---
EXAMINATION: CT ABDOMEN AND PELVIS WITHOUT CONTRAST CLINICAL INFORMATION: Diarrhea. Suprapubic pain. Evaluate for colitis. COMPARISON: Previous CT of the abdomen and pelvis most recent August 2021 TECHNIQUE: Multidetector volumetric imaging was performed from the superior aspect of the liver through the pubic symphysis. Sagittal and coronal reformatted images were obtained on the technologist's workstation. This CT examination was performed using dose optimization techniques as appropriate, variously including the following: *Automated exposure control *Adjustment of mA and/or kV according to patient size (this includes techniques or standardized protocols for targeted exams where dose is matched to indication/reason for exam; i.e. extremities or head) *Use of iterative reconstruction technique DLP: 345 mGy-cm FINDINGS: LUNG BASES: The visualized lung bases are unremarkable. LIVER, GALLBLADDER, AND BILIARY TREE: The liver is normal in size, shape, and attenuation. No focal hepatic lesion. The gallbladder has been removed. There is no intrahepatic biliary duct dilatation. There is mild dilatation of the common bile duct. This is similar to previous exam and may be normal postcholecystectomy. PANCREAS: Unremarkable. SPLEEN: Unremarkable. ADRENAL GLANDS: Unremarkable. KIDNEYS AND URETERS: There is abnormal anterior orientation of the left renal pelvis. The kidneys are otherwise normal. BLADDER: There is question of mild bladder wall thickening. This is similar to previous exams. GASTROINTESTINAL TRACT: The small and large bowel are unremarkable. The appendix is is not seen. ABDOMINAL WALL: No significant hernia is appreciated. LYMPH NODES: Normal. VASCULAR: Unremarkable. PELVIC VISCERA: Unremarkable. OSSEOUS STRUCTURES: There are degenerative changes of the spine. CT/CT abdomen pelvis wo con IMPRESSION: Question mild bladder wall thickening. No evidence of colitis. Fleischner guidelines were followed.
[2021-12-29 08:28] VITALS: BP 161/80; PULSE 66; RESP 16; TEMP 36.8; O2SAT 97; BMI 26.7
--- NOTE | 2021-12-29 08:48 | ED.FEMALEGU ---
HPI - Female Genitourinary General Chief complaint: Urogenital-Female Stated complaint: diarrhea bladder pain Time Seen by Provider: 12/29/21 08:28 Source: patient Mode of arrival: ambulatory Limitations: no limitations History of Present Illness HPI Narrative: 76-year-old female presents to the ED for hypertension, COVID-19, asthma, depression, pancreatitis, GERD, and PE presents to ED for bladder pain and diarrhea for 1 week. Patient denies any dysuria, hematuria, blood in stool. Patient denies any recent hospital admission or new antibiotics. Patient denies any nausea, vomiting, fever, chills, or any upper abdominal pain. Denies any chest pain or shortness of breath. Related Data Home Medications Medication Instructions Recorded Confirmed benazepril 10 mg tablet 1 tab PO QAM 11/20/20 05/11/21 diltiazem HCl 120 mg 1 cap PO BID 11/20/20 05/11/21 capsule,extended release 12 hr donepezil 5 mg tablet 1 tab PO BEDTIME 11/20/20 05/11/21 montelukast 10 mg tablet 1 tab PO BEDTIME 11/20/20 05/11/21 sertraline 100 mg tablet 2 tab PO QAM 11/20/20 05/11/21 Previous Rx's Medication Instructions Recorded loperamide 2 mg capsule 2 mg PO Q6H PRN #14 cap 10/31/20 (Anti-Diarrheal (loperamide)) ondansetron HCl 4 mg tablet 4 mg PO Q6H PRN #14 tab 10/31/20 (Zofran) apixaban 5 mg tablet (Eliquis) 5 mg PO BID #90 tab 11/22/20 hydrocodone 5 mg-acetaminophen 300 1 tab PO BID PRN 3 Days #10 tab 11/23/20 mg tablet lidocaine 4 % topical patch 1 patch TOPICAL DAILY PRN #10 ea 03/26/21 atorvastatin 80 mg tablet 80 mg PO BEDTIME #30 tab 05/12/21 Allergies Allergy/AdvReac Type Severity Reaction Status Date / Time oxycodone [OXYCODONE] Allergy Unknown UNKNOWN Verified 11/07/21 14:12 Review of Systems Review of Systems: Bladder pain. Diarrhea. Yes all other systems are reviewed and are negative PMFSH Past Medical History Medical History (Updated 12/29/21 @ 12:52 by SHANTA Treadwell) Aortic insufficiency Asthma Depression Diabetes GERD (gastroesophageal reflux disease) High cholesterol Hypertension Multinodular goiter (nontoxic) NSTEMI (non-ST elevated myocardial infarction) Pancreatitis Pulmonary embolism Surgical History No history of previous surgery Family History Family History (Updated 11/07/21 @ 14:16 by LINDA Priest) Father Hypertension Heart disease Mother Hypertension Heart disease Social History Social History Household Members: Family and Other Household Members Other:: daughter is board certified orthodontist Housing: Apartment Do you presently have visiting nurse or other home services: No Alcohol intake: never Patient Tobacco Use Status: Never used Tobacco Second Hand Smoke Exposure: No Advance Directives: Yes Advance Directives Information Provided: Yes Advance Directives on File: No service: No Current occupational status: unemployed and disabled Physical Exam Vital Signs: Vital Signs: Last Vital Signs Temp 97.9 F 12/29/21 10:35 Pulse 61 12/29/21 10:35 Resp 14 12/29/21 10:35 BP 150/82 H 12/29/21 10:35 Pulse Ox 94 12/29/21 10:35 BMI result Body Mass Index 26.7 Const: General: cooperative, healthy appearing, comfortable, no acute distress, well developed, alert, awake and Physically active Orientation/consciousness: patient oriented x3 HEENT: Head: Yes normal to inspection, Yes No palpable skull fracture present, Yes normocephalic, Yes atraumatic and No abrasion Eyes: General: appearance normal, both eyes and all related structures Neck: Neck: Yes normal visual inspection, Yes full ROM, Yes no lymphadenopathy, Yes no meningeal signs, Yes trachea midline, Yes supple, No anterior neck swelling and No tender Chest: Chest palpation & inspection: normal inspection of the chest and normal palpation of entire chest wall Resp: Effort & Inspection: normal respiratory effort and able to speak in complete sentences Auscultation: clear to auscultation bilaterally Cardio: Jugular venous distension: no JVD Heart sounds: S1 normal heart sound present and S2 normal heart sound present GI: Inspection: Yes normal to inspection and No abdominal wall ecchymosis Palpation (GI): Soft to palpation, not firm, Tenderness to palpation present (GI) suprapubicly (mild); Negative for not in the epigastrum, not in the LLQ, not in the RLQ, not in the LUQ, not in the RUQ, not at McBurney's point, not periumbilically, Tao's sign negative, obturator sign negative, psoas sign negative, with no rebound tenderness and Rovsing's sign negative, no guarding and not rigid : General: No CVA tenderness and Yes no CVA tenderness Back/Spine/Pelvis: Back: no CVA tenderness, No CVA tenderness and No back tenderness Skin: General skin exam: no rashes or lesions noted and elasticity normal Neuro: General: patient oriented x3, gait normal, tone normal, moves all extremities, no meningeal signs and CN's II-XI intact bilaterally Cranial nerves: Yes CN's II-XII intact bilaterally Extrem: General: Yes normal to inspection and Yes full ROM Psych: Appearance: grossly normal, well kempt and not disheveled Course Course Course Narrative: patient is sitting comfortably in bed and not in any distress. Basic labs ordered including COVID and influenza. UA ordered. Reevaluation(s) Reevaluation #1: UA came back negative for UTI. Labs are normal. Abdominal CT scan shows bladder wall thickening and rest of abdominal CT scan is normal. Negative for colitis. Patient comfortably in bed talking to her . COVID and influenza negative. Time: 12:50 MDM - Female Genitourinary MDM Narrative Medical decision making narrative: gastroenteritis Lab Data Result diagrams: 12/29/21 09:00 12/29/21 09:00 Labs: Lab Results 12/29/21 12/29/21 12/29/21 Range/Units 09:00 09:00 09:00 WBC 3.9 L (4.8-10.8) X10*3/uL RBC 4.78 (4.20-5.50) X10*6/uL Hgb 13.8 (12.0-16.0) g/dl Hct 42.9 (37.0-47.0) % MCV 89.7 (80.0-98.0) fL MCH 28.9 (27.0-33.0) pg MCHC 32.2 (31.0-35.0) g/dl RDW 13.2 (11.0-16.0) % Plt Count 192 (160-400) X10*3/uL MPV 11.2 (9.4-12.3) fL Immature Gran % (Auto) 0.3 (0.0-0.4) % Neut % (Auto) 43.1 L (45-73) % Lymph % (Auto) 38.5 (20-40) % [place] % (Auto) 14.0 H (2-11) % Eos % (Auto) 3.3 (0-4) % Baso % (Auto) 0.8 (0-2) % Lymph # (Auto) 1.5 (1.2-4.9) X10*3/uL [place]ay # (Auto) 0.6 (0.1-1.2) X10*3/uL Eos # (Auto) 0.1 (0.0-0.4) X10*3/uL Baso # (Auto) 0.0 (0.0-0.2) X10*3/uL Abs Immat Gran (auto) 0.01 (0.00-0.03) X10*3/uL Absolute Neuts (auto) 1.7 L (2.0-8.3) x10*3/uL Absolute Nucleated RBC 0.000 (0.0-0.012) X10*3/uL Nucleated RBC % (auto) 0.0 (0.0-0.2) /100WBC Sodium 140 (135-145) mmol/L Potassium 4.7 (3.3-5.1) mmol/L Chloride 107 (96-108) mmol/L Carbon Dioxide 26 (22-29) mmol/L Anion Gap 12 (12-20) BUN 19 H (9-16) mg/dL Creatinine 0.91 (0.5-1.4) mg/dL Estim Creat Clear Calc 34.3 Estimated GFR > 60 Random Glucose 112 (60-115) mg/dL Calcium 9.8 (8.4-10.2) mg/dL Total Bilirubin 0.6 (0.0-1.0) mg/dL AST 25 (5-31) U/L ALT 18 (0-31) U/L Alkaline Phosphatase 160 H D (39-117) U/L Total Protein 7.5 (6.5-8.0) g/dL Albumin 4.3 (3.5-5.0) g/dL Lipase 54 (8-78) U/L Urine Color Urine Appearance Urine pH (5.0-8.0) Ur Specific [place] (1.005-1.025) Urine Protein (NEG-TRACE) MG/DL Urine Glucose (UA) (NEG) MG/DL Urine Ketones (NEG) MG/DL Urine Blood (NEG) Urine Nitrite (NEG) Ur Leukocyte Esterase (NEG) COVID-19 (HEMA) (Negative) COVID-19 Clin Com Influenza Type A (SRAVANI) Negative (Negative) Influenza Type B (SRAVANI) Negative (Negative) Influenza A & B Note See Note 12/29/21 12/29/21 Range/Units 09:00 09:00 WBC (4.8-10.8) X10*3/uL RBC (4.20-5.50) X10*6/uL Hgb (12.0-16.0) g/dl Hct (37.0-47.0) % MCV (80.0-98.0) fL MCH (27.0-33.0) pg MCHC (31.0-35.0) g/dl RDW (11.0-16.0) % Plt Count (160-400) X10*3/uL MPV (9.4-12.3) fL Immature Gran % (Auto) (0.0-0.4) % Neut % (Auto) (45-73) % Lymph % (Auto) (20-40) % [place] % (Auto) (2-11) % Eos % (Auto) (0-4) % Baso % (Auto) (0-2) % Lymph # (Auto) (1.2-4.9) X10*3/uL [place] # (Auto) (0.1-1.2) X10*3/uL Eos # (Auto) (0.0-0.4) X10*3/uL Baso # (Auto) (0.0-0.2) X10*3/uL Abs Immat Gran (auto) (0.00-0.03) X10*3/uL Absolute Neuts (auto) (2.0-8.3) x10*3/uL Absolute Nucleated RBC (0.0-0.012) X10*3/uL Nucleated RBC % (auto) (0.0-0.2) /100WBC Sodium (135-145) mmol/L Potassium (3.3-5.1) mmol/L Chloride (96-108) mmol/L Carbon Dioxide (22-29) mmol/L Anion Gap (12-20) BUN (9-16) mg/dL Creatinine (0.5-1.4) mg/dL Estim Creat Clear Calc Estimated GFR Random Glucose (60-115) mg/dL Calcium (8.4-10.2) mg/dL Total Bilirubin (0.0-1.0) mg/dL AST (5-31) U/L ALT (0-31) U/L Alkaline Phosphatase (39-117) U/L Total Protein (6.5-8.0) g/dL Albumin (3.5-5.0) g/dL Lipase (8-78) U/L Urine Color YELLOW Urine Appearance CLEAR Urine pH 6.5 (5.0-8.0) Ur Specific [place] 1.015 (1.005-1.025) Urine Protein NEG (NEG-TRACE) MG/DL Urine Glucose (UA) NEG (NEG) MG/DL Urine Ketones NEG (NEG) MG/DL Urine Blood NEG (NEG) Urine Nitrite NEG (NEG) Ur Leukocyte Esterase NEG (NEG) COVID-19 (HEMA) Negative (Negative) COVID-19 Clin Com See Note Influenza Type A (SRAVANI) (Negative) Influenza Type B (SRAVANI) (Negative) Influenza A & B Note Discharge Plan Discharge Clinical Impression: Gastroenteritis, Abdominal pain Patient Disposition: Home, Self-Care Prescriptions: No Action hydrocodone-acetaminophen 5-300 mg tablet 1 tab PO BID PRN (Reason: pain) 3 Days Qty: 10 0RF ondansetron HCl [Zofran] 4 mg tablet 4 mg PO Q6H PRN (Reason: nausea and vomiting) Qty: 14 0RF loperamide [Anti-Diarrheal (loperamide)] 2 mg capsule 2 mg PO Q6H PRN (Reason: loose stool) Qty: 14 0RF donepezil 5 mg tablet 1 tab PO BEDTIME 0RF sertraline 100 mg tablet 2 tab PO QAM 0RF diltiazem HCl 120 mg capsule,extended release 12 hr 1 cap PO BID 0RF montelukast 10 mg tablet 1 tab PO BEDTIME 0RF benazepril 10 mg tablet 1 tab PO QAM 0RF Eliquis 5 mg tablet 5 mg PO BID Qty: 90 0RF Rx Instructions: take 10 mg bid for 7 days then 5 mg BID lidocaine 4 % adhesive patch,medicated 1 patch topical DAILY PRN (Reason: pain) Qty: 10 0RF Rx Instructions: may leave on for up to 12 hrs atorvastatin 80 mg Tablet 80 mg PO BEDTIME Qty: 30 0RF Interventions: ED Discharge Assessment Last Done: 12/29/21 13:20 Discharge Date/Time: 12/29/21 13:21 Print Language: Swedish
[2021-12-29 09:06] LABS: MANUAL DIFF FLAG NO
[2021-12-29 09:08] LABS: Basophils Percent Auto 0.8 % (0-2); Eosinophils Absolute Auto 0.1 X10*3/uL (0.0-0.4); Eosinophils Percent Auto 3.3 % (0-4); Hematocrit 42.9 % (37.0-47.0); Hemoglobin 13.8 g/dl (12.0-16.0); Imm Gran Abs Auto 0.01 X10*3/uL (0.00-0.03); Imm Gran Pct Auto 0.3 % (0.0-0.4); Lymphocytes Absolute Auto 1.5 X10*3/uL (1.2-4.9); Lymphocytes Percent Auto 38.5 % (20-40); Mean Corpuscular HGB Conc 32.2 g/dl (31.0-35.0); Mean Corpuscular Hemoglobin 28.9 pg (27.0-33.0); Mean Corpuscular Volume 89.7 fL (80.0-98.0); Mean Platelet Volume 11.2 fL (9.4-12.3); Monocytes Absolute Auto 0.6 X10*3/uL (0.1-1.2); Neutrophils Absolute Auto 1.7 x10*3/uL (2.0-8.3); Neutrophils Percent Auto 43.1 % (45-73); Platelet Count 192 X10*3/uL (160-400); Red Blood Count 4.78 X10*6/uL (4.20-5.50); Red Cell Distribution Width 13.2 % (11.0-16.0); White Blood Count 3.9 X10*3/uL (4.8-10.8)
[2021-12-29 09:10] LABS: Appearance Urine CLEAR; Color Urine YELLOW; Glucose Urine UA NEG (NEG); Leukocyte Esterase Urine NEG (NEG); Nitrite Urine NEG (NEG); PH 6.5 (5.0-8.0); Specific Gravity - Urine 1.015 (1.005-1.025); Urine Blood NEG (NEG); Urine Ketones NEG (NEG); Urine Protein NEG (NEG-TRACE)
[2021-12-29 09:26] LABS: Alanine Aminotransferase 18 U/L (0-31); Albumin Level 4.3 g/dL (3.5-5.0); Alkaline Phosphatase 160 U/L (39-117); Anion Gap 12 (12-20); Aspartate Amino Transferase 25 U/L (5-31); Bilirubin Total 0.6 mg/dL (0.0-1.0); Blood Urea Nitrogen 19 mg/dL (9-16); Calcium 9.8 mg/dL (8.4-10.2); Carbon Dioxide 26 mmol/L (22-29); Chloride 107 mmol/L (96-108); Creatinine Clr Calc Pharmacy 34.3; Estimated Glomerular Filt Rate > 60; Glucose Random 112 mg/dL (60-115); Lipase 54 U/L (8-78); Potassium 4.7 mmol/L (3.3-5.1); Sodium 140 mmol/L (135-145); Total Protein 7.5 g/dL (6.5-8.0)
[2021-12-29 09:29] LABS: Influenza A Negative (Negative); Influenza B2 Negative (Negative)
[2021-12-29 10:06] LABS: COVID-19 Test Negative (Negative); IDNOW Serial# 55D5AD1C
[2021-12-29 10:35] VITALS: BP 150/82; PULSE 61; RESP 14; TEMP 36.6; O2SAT 94
== END 2021-12-29 13:21 | disposition home or self-care (01) ==
PROVIDERS: Physician Assistant; Emergency Provider Emergency Medicine; PCP Family Medicine
DX: K52.9 Noninfective gastroenteritis and colitis, unspecified (principal); R10.30 Lower abdominal pain, unspecified; Z20.822 Contact with and (suspected) exposure to COVID-19; I10 Essential (primary) hypertension; E78.5 Hyperlipidemia, unspecified; Z86.711 Personal history of pulmonary embolism; Z79.01 Long term (current) use of anticoagulants; Z79.02 Long term (current) use of antithrombotics/antiplatelets; Z79.899 Other long term (current) drug therapy
CPT/HCPCS: 74176; 80053; 81003; 83690; 85025; 87502; 87635; 99283; 99284

== ENCOUNTER 2022-02-09 19:26 | Emergency (ER) | payer OTHER, SELFPAY ==
[2022-02-09 19:36] VITALS: BP 158/78; BP 163/83; PULSE 77; PULSE 80; RESP 16; TEMP 36.9; O2SAT 98; O2SAT 99; BMI 20.7
--- NOTE | 2022-02-09 19:46 | ED.CHESTPAIN ---
HPI - Chest Pain General Chief Complaint: Chest Pain Stated Complaint: cp Time Seen by Provider: 02/09/22 19:46 Source: patient Mode of arrival: EMS Limitations: language barrier History of Present Illness HPI narrative: chest pain, headache, palpitations, short of breath. Patient suffers from depression. patient was at home doing nothing strenuous. She has been seen multiple times for the same. patient had a nuclear stress a few months ago and was told it was fine. has been seen in this ED multiple times for chest pain and sent home. MD complaint: chest pain Onset (ago): hour(s) Timing of current episode: constant Onset: during rest Pain location: substernal Pain radiation: none Severity: mild Quality: tightness Relieving factors: nothing Exacerbating factors: nothing Related Data Home Medications Medication Instructions Recorded Confirmed benazepril 10 mg tablet 1 tab PO QAM 11/20/20 05/11/21 diltiazem HCl 120 mg 1 cap PO BID 11/20/20 05/11/21 capsule,extended release 12 hr donepezil 5 mg tablet 1 tab PO BEDTIME 11/20/20 05/11/21 montelukast 10 mg tablet 1 tab PO BEDTIME 11/20/20 05/11/21 sertraline 100 mg tablet 2 tab PO QAM 11/20/20 05/11/21 Previous Rx's Medication Instructions Recorded loperamide 2 mg capsule 2 mg PO Q6H PRN #14 cap 10/31/20 (Anti-Diarrheal (loperamide)) ondansetron HCl 4 mg tablet 4 mg PO Q6H PRN #14 tab 10/31/20 (Zofran) apixaban 5 mg tablet (Eliquis) 5 mg PO BID #90 tab 11/22/20 hydrocodone 5 mg-acetaminophen 300 1 tab PO BID PRN 3 Days #10 tab 11/23/20 mg tablet lidocaine 4 % topical patch 1 patch TOPICAL DAILY PRN #10 ea 03/26/21 atorvastatin 80 mg tablet 80 mg PO BEDTIME #30 tab 05/12/21 Allergies Allergy/AdvReac Type Severity Reaction Status Date / Time oxycodone [OXYCODONE] Allergy Unknown UNKNOWN Verified 11/07/21 14:12 Review of Systems Constitutional: Constitutional: Reports no additional constitutional complaints Eyes: Eyes: Reports no additional eye complaints ENT: Denies dizziness Cardiovascular: Cardiovascular: Reports no additional cardiovascular complaints Respiratory: Respiratory: Reports as per HPI Gastrointestinal: Gastrointestinal: Reports no additional gastrointestinal complaints Genitourinary: Genitourinary: Reports no additional female genitourinary complaints Musculoskeletal: Musculoskeletal: Reports no additional musculoskeletal complaints Integumentary/Breasts: Skin/Breast: Denies rash Neurologic: Reports system reviewed and no additional complaints, except as documented, Denies dizziness and Denies Sensory deficit (Neuro) Psychiatric: Psychiatric: Denies anxiety [facility] Past Medical History Medical History Aortic insufficiency Asthma Depression Diabetes GERD (gastroesophageal reflux disease) High cholesterol Hypertension Multinodular goiter (nontoxic) NSTEMI (non-ST elevated myocardial infarction) Pancreatitis Pulmonary embolism Surgical History No history of previous surgery Family History Family History Father Hypertension Heart disease Mother Hypertension Heart disease Social History Social History Household Members: Family and Other Household Members Other:: daughter is kiln stoker Housing: Apartment Do you presently have visiting nurse or other home services: No Alcohol intake: never Patient Tobacco Use Status: Never used Tobacco Second Hand Smoke Exposure: No Use of substances other than those prescribed or required for medical reasons: No Advance Directives: No Advance Directives Information Provided: No service: No Current occupational status: unemployed and disabled Physical Exam Vital Signs: Vital Signs: Last Vital Signs Temp 98.3 F 02/09/22 21:24 Pulse 80 02/09/22 21:52 Resp 12 02/09/22 21:52 BP 165/91 H 02/09/22 21:52 Pulse Ox 98 02/09/22 21:52 BMI result Body Mass Index 20.7 Const: General: healthy appearing Nutritional Appearance: average body habitus Orientation/consciousness: oriented to person and patient oriented x3 Limitations: no limitations HEENT: Head: Yes normal to inspection Ears: external ears normal General nose exam: Normal external nose present Mouth: Normal oral and palatal mucosa present and oropharynx normal Throat: Yes posterior oropharynx normal Eyes: General: appearance normal, both eyes and all related structures Neck: Other: supple Neck: Yes normal visual inspection Chest: Chest palpation & inspection: normal inspection of the chest Resp: Auscultation: clear to auscultation bilaterally Cardio: Jugular venous distension: no JVD Rate: regular rate Rhythm: regular rhythm Heart sounds: S1 normal heart sound present and S2 normal heart sound present GI: Inspection: Yes normal to inspection Palpation (GI): Soft to palpation, nontender and No hepatosplenomegaly present Auscultation: normal bowel sounds : General: Yes no CVA tenderness Back/Spine/Pelvis: Back: no CVA tenderness Skin: General skin exam: no rashes or lesions noted Neuro: General: oriented to person and patient oriented x3 Cranial nerves: Yes CN's II-XII intact bilaterally Motor exam (neuro): 5/5 motor strength present throughout Sensory Exam: No Sensory deficit (Neuro) Extrem: General: Yes normal to inspection Psych: Appearance: grossly normal Course Reevaluation(s) Reevaluation #1: patient with recent stress negative, EKG and troponin normal, will dc home Time: 22:09 [facility] - Chest Pain Lab Data Result diagrams: 02/09/22 20:28 02/09/22 20:28 Labs: Lab Results 02/09/22 02/09/22 02/09/22 Range/Units 20:28 20:28 20:28 WBC 4.3 L (4.8-10.8) X10*3/uL RBC 4.48 (4.20-5.50) X10*6/uL Hgb 13.0 (12.0-16.0) g/dl Hct 40.0 (37.0-47.0) % MCV 89.3 (80.0-98.0) fL MCH 29.0 (27.0-33.0) pg MCHC 32.5 (31.0-35.0) g/dl RDW 12.8 (11.0-16.0) % Plt Count 209 (160-400) X10*3/uL MPV 10.6 (9.4-12.3) fL Immature Gran % (Auto) 0.5 H (0.0-0.4) % Neut % (Auto) 52.7 (45-73) % Lymph % (Auto) 30.1 (20-40) % [place] % (Auto) 12.5 H (2-11) % Eos % (Auto) 3.5 (0-4) % Baso % (Auto) 0.7 (0-2) % Lymph # (Auto) 1.3 (1.2-4.9) X10*3/uL [place] # (Auto) 0.5 (0.1-1.2) X10*3/uL Eos # (Auto) 0.2 (0.0-0.4) X10*3/uL Baso # (Auto) 0.0 (0.0-0.2) X10*3/uL Abs Immat Gran (auto) 0.02 (0.00-0.03) X10*3/uL Absolute Neuts (auto) 2.2 (2.0-8.3) x10*3/uL Absolute Nucleated RBC 0.000 (0.0-0.012) X10*3/uL Nucleated RBC % (auto) 0.0 (0.0-0.2) /100WBC Sodium 141 (135-145) mmol/L Potassium 4.7 (3.3-5.1) mmol/L Chloride 108 (96-108) mmol/L Carbon Dioxide 26 (22-29) mmol/L Anion Gap 12 (12-20) BUN 18 H (9-16) mg/dL Creatinine 0.88 (0.5-1.4) mg/dL Estim Creat Clear Calc 43.0 Estimated GFR > 60 Random Glucose 116 H (60-115) mg/dL Calcium 9.2 D (8.4-10.2) mg/dL Troponin I High Sens 3.7 (<3.5-17.0) ng/L ECG Data ECG #1: Attestation: I personally reviewed and interpreted this ECG as follows: Interpretation: sinus rate of 70,no st or twave changes Discharge Plan Discharge Clinical Impression: Atypical chest pain Patient Disposition: Home, Self-Care Instructions: Noncardiac Chest Pain (ED) Prescriptions: No Action hydrocodone-acetaminophen 5-300 mg tablet 1 tab PO BID PRN (Reason: pain) 3 Days Qty: 10 0RF ondansetron HCl [Zofran] 4 mg tablet 4 mg PO Q6H PRN (Reason: nausea and vomiting) Qty: 14 0RF loperamide [Anti-Diarrheal (loperamide)] 2 mg capsule 2 mg PO Q6H PRN (Reason: loose stool) Qty: 14 0RF donepezil 5 mg tablet 1 tab PO BEDTIME 0RF sertraline 100 mg tablet 2 tab PO QAM 0RF diltiazem HCl 120 mg capsule,extended release 12 hr 1 cap PO BID 0RF montelukast 10 mg tablet 1 tab PO BEDTIME 0RF benazepril 10 mg tablet 1 tab PO QAM 0RF Eliquis 5 mg tablet 5 mg PO BID Qty: 90 0RF Rx Instructions: take 10 mg bid for 7 days then 5 mg BID lidocaine 4 % adhesive patch,medicated 1 patch topical DAILY PRN (Reason: pain) Qty: 10 0RF Rx Instructions: may leave on for up to 12 hrs atorvastatin 80 mg Tablet 80 mg PO BEDTIME Qty: 30 0RF Referrals: Tiffany Kent MD [Primary Care Provider] - 1 week
--- NOTE | 2022-02-09 19:54 | ECG_ITS ---
Test Reason : CHEST PAIN Blood Pressure : / mmHG Vent. Rate : 073 BPM Atrial Rate : 073 BPM P-R Int : 148 ms QRS Dur : 066 ms QT Int : 412 ms P-R-T Axes : 059 -10 039 degrees QTc Int : 453 ms Normal sinus rhythm Normal ECG When compared with ECG of 17-SEP-2021 11:38, Criteria for inferior infarct not present anymore Referred By: Iain Francis Electronically Signed By:Sher Dugan
[2022-02-09 20:35] LABS: MANUAL DIFF FLAG NO
[2022-02-09 20:36] LABS: Basophils Percent Auto 0.7 % (0-2); Eosinophils Absolute Auto 0.2 X10*3/uL (0.0-0.4); Eosinophils Percent Auto 3.5 % (0-4); Imm Gran Abs Auto 0.02 X10*3/uL (0.00-0.03); Imm Gran Pct Auto 0.5 % (0.0-0.4); Lymphocytes Absolute Auto 1.3 X10*3/uL (1.2-4.9); Lymphocytes Percent Auto 30.1 % (20-40); Mean Corpuscular HGB Conc 32.5 g/dl (31.0-35.0); Mean Corpuscular Volume 89.3 fL (80.0-98.0); Mean Platelet Volume 10.6 fL (9.4-12.3); Monocytes Absolute Auto 0.5 X10*3/uL (0.1-1.2); Monocytes Percent Auto 12.5 % (2-11); Neutrophils Absolute Auto 2.2 x10*3/uL (2.0-8.3); Neutrophils Percent Auto 52.7 % (45-73); Platelet Count 209 X10*3/uL (160-400); Red Blood Count 4.48 X10*6/uL (4.20-5.50); Red Cell Distribution Width 12.8 % (11.0-16.0); White Blood Count 4.3 X10*3/uL (4.8-10.8)
[2022-02-09 20:52] LABS: Anion Gap 12 (12-20); Blood Urea Nitrogen 18 mg/dL (9-16); Calcium 9.2 mg/dL (8.4-10.2); Carbon Dioxide 26 mmol/L (22-29); Chloride 108 mmol/L (96-108); Estimated Glomerular Filt Rate > 60; Glucose Random 116 mg/dL (60-115); Potassium 4.7 mmol/L (3.3-5.1); Sodium 141 mmol/L (135-145)
[2022-02-09 20:57] LABS: Troponin-I High Sensitivity 3.7 ng/L (<3.5-17.0)
[2022-02-09 21:24] VITALS: BP 146/80; PULSE 69; RESP 17; TEMP 36.8; O2SAT 94
[2022-02-09 21:52] VITALS: BP 165/91; PULSE 80; RESP 12; O2SAT 98
== END 2022-02-09 22:42 | disposition home or self-care (01) ==
PROVIDERS: Emergency Provider Emergency Medicine; PCP Family Medicine
DX: R07.89 Other chest pain (principal); I10 Essential (primary) hypertension
CPT/HCPCS: 36415; 80048; 84484; 85025; 93005; 99283; 99284

== ENCOUNTER 2022-02-12 15:53 | Emergency (ER) | payer OTHER, SELFPAY ==
--- NOTE | ~2022-02-12 | XR_ITS ---
EXAMINATION: XR CHEST CLINICAL INFORMATION: Cough. COMPARISON: 06/04/2021 chest radiograph. TECHNIQUE: Frontal view of the chest was obtained. FINDINGS: No significant abnormality is noted involving the heart, lungs, mediastinum, bony thorax or soft tissues. XR/XR chest 1V IMPRESSION: No acute cardiopulmonary process.
--- NOTE | 2022-02-12 16:01 | ECG_ITS ---
Test Reason : HEART PALP Blood Pressure : / mmHG Vent. Rate : 074 BPM Atrial Rate : 074 BPM P-R Int : 126 ms QRS Dur : 066 ms QT Int : 384 ms P-R-T Axes : 057 -04 048 degrees QTc Int : 426 ms Normal sinus rhythm Normal ECG When compared with ECG of 09-FEB-2022 20:10, No significant change was found Referred By: Generic ED Physician Electronically Signed By:Sher Dugan
[2022-02-12 16:04] VITALS: BP 145/79; PULSE 80; O2SAT 97
[2022-02-12 16:20] LABS: MANUAL DIFF FLAG NO
[2022-02-12 16:24] LABS: Basophils Percent Auto 0.4 % (0-2); Eosinophils Absolute Auto 0.1 X10*3/uL (0.0-0.4); Hematocrit 43.1 % (37.0-47.0); Hemoglobin 13.7 g/dl (12.0-16.0); Imm Gran Abs Auto 0.03 X10*3/uL (0.00-0.03); Imm Gran Pct Auto 0.6 % (0.0-0.4); Lymphocytes Absolute Auto 1.2 X10*3/uL (1.2-4.9); Lymphocytes Percent Auto 24.9 % (20-40); Mean Corpuscular HGB Conc 31.8 g/dl (31.0-35.0); Mean Corpuscular Hemoglobin 28.6 pg (27.0-33.0); Mean Platelet Volume 10.9 fL (9.4-12.3); Monocytes Absolute Auto 0.6 X10*3/uL (0.1-1.2); Monocytes Percent Auto 12.1 % (2-11); Platelet Count 218 X10*3/uL (160-400); Red Blood Count 4.79 X10*6/uL (4.20-5.50); Red Cell Distribution Width 12.8 % (11.0-16.0)
[2022-02-12 16:37] LABS: Alanine Aminotransferase 21 U/L (0-31); Albumin Level 4.1 g/dL (3.5-5.0); Alkaline Phosphatase 158 U/L (39-117); Anion Gap 12 (12-20); Aspartate Amino Transferase 25 U/L (5-31); Bilirubin Total 0.5 mg/dL (0.0-1.0); Blood Urea Nitrogen 21 mg/dL (9-16); Calcium 9.8 mg/dL (8.4-10.2); Carbon Dioxide 26 mmol/L (22-29); Chloride 107 mmol/L (96-108); Estimated Glomerular Filt Rate 54; Glucose Random 138 mg/dL (60-115); Potassium 5.2 mmol/L (3.3-5.1); Sodium 140 mmol/L (135-145); Total Protein 7.3 g/dL (6.5-8.0)
[2022-02-12 16:38] LABS: COVID-19 Test Negative (Negative)
[2022-02-12 16:59] VITALS: BP 140/76; PULSE 72; RESP 18; TEMP 36.9; O2SAT 98; BMI 18.3
[2022-02-12 20:46] LABS: Troponin-I High Sensitivity 3.9 ng/L (<3.5-17.0)
--- NOTE | 2022-02-12 23:12 | ED_ITS ---
HPI - Chest Pain General Chief Complaint: Chest Pain Stated Complaint: Feels heart racing Time Seen by Provider: 02/12/22 16:47 Source: patient History of Present Illness HPI narrative: 77 yo female presented c/o palpitationsX 2 Days,she was evaluated on 02/[address] Pollard as well,she denies syncope episode,she has mild chest pain as well.Pt is anticoagulated with eliquis because PE after Nitoid complaint: chest pain Onset (ago): day(s) (2) Timing of current episode: episodic Onset: during rest Pain radiation: none Severity: mild Relieving factors: nothing Exacerbating factors: nothing Risk Factors Thoracic aortic dissection risk factors: none Related Data Home Medications Medication Instructions Recorded Confirmed benazepril 10 mg tablet 1 tab PO QAM 11/20/20 05/11/21 diltiazem HCl 120 mg 1 cap PO BID 11/20/20 05/11/21 capsule,extended release 12 hr donepezil 5 mg tablet 1 tab PO BEDTIME 11/20/20 05/11/21 montelukast 10 mg tablet 1 tab PO BEDTIME 11/20/20 05/11/21 sertraline 100 mg tablet 2 tab PO QAM 11/20/20 05/11/21 Previous Rx's Medication Instructions Recorded loperamide 2 mg capsule 2 mg PO Q6H PRN #14 cap 10/31/20 (Anti-Diarrheal (loperamide)) ondansetron HCl 4 mg tablet 4 mg PO Q6H PRN #14 tab 10/31/20 (Zofran) apixaban 5 mg tablet (Eliquis) 5 mg PO BID #90 tab 11/22/20 hydrocodone 5 mg-acetaminophen 300 1 tab PO BID PRN 3 Days #10 tab 11/23/20 mg tablet lidocaine 4 % topical patch 1 patch TOPICAL DAILY PRN #10 ea 03/26/21 atorvastatin 80 mg tablet 80 mg PO BEDTIME #30 tab 05/12/21 Allergies Allergy/AdvReac Type Severity Reaction Status Date / Time oxycodone [OXYCODONE] Allergy Unknown UNKNOWN Verified 02/12/22 16:59 Review of Systems Constitutional: Constitutional: Reports no additional constitutional complaints Eyes: Eyes: Reports no additional eye complaints Cardiovascular: Cardiovascular: Reports no additional cardiovascular complaints Respiratory: Respiratory: Reports no additional respiratory complaints and Reports no additional respiratory complaints Gastrointestinal: Gastrointestinal: Reports no additional gastrointestinal complaints Neurologic: Reports system reviewed and no additional complaints, except as documented COUNTS INCLUDE 234 BEDS AT THE [facility] Past Medical History Medical History Aortic insufficiency Asthma Depression Diabetes GERD (gastroesophageal reflux disease) High cholesterol Hypertension Multinodular goiter (nontoxic) NSTEMI (non-ST elevated myocardial infarction) Pancreatitis Pulmonary embolism Surgical History No history of previous surgery Family History Family History Father Hypertension Heart disease Mother Hypertension Heart disease Social History Social History Household Members: Family and Other Household Members Other:: daughter is label folder Housing: Apartment Do you presently have visiting nurse or other home services: No Alcohol intake: never Patient Tobacco Use Status: Never used Tobacco Second Hand Smoke Exposure: No Advance Directives: No service: No Current occupational status: unemployed and disabled Physical Exam Vital Signs: Vital Signs: Last Vital Signs Temp 98.1 F 02/12/22 23:17 Pulse 72 02/12/22 23:17 Resp 15 02/12/22 23:17 BP 153/83 H 02/12/22 23:17 Pulse Ox 98 02/12/22 23:17 BMI result Body Mass Index 18.3 Const: General: cooperative and comfortable Nutritional Appearance: well nourished Orientation/consciousness: patient oriented x3 HEENT: Head: Yes normal to inspection General nose exam: Normal external nose present Face and sinus: Yes normal facial exam Mouth: Normal oral and palatal mucosa present Throat: Yes posterior oropharynx normal Neck: Neck: Yes normal visual inspection and Yes full ROM Chest: Chest palpation & inspection: normal inspection of the chest Resp: Effort & Inspection: normal respiratory effort Auscultation: clear to auscultation bilaterally Cardio: Jugular venous distension: no JVD Rate: regular rate Rhythm: regular rhythm GI: Inspection: Yes normal to inspection Palpation (GI): Soft to palpation, not firm, nontender and no guarding Skin: General skin exam: no rashes or lesions noted and elasticity normal Lesions: no lesions Rashes: no rashes Neuro: General: patient oriented x3 MDM - Chest Pain MDM Narrative Medical decision making narrative: delta tropi negative after 2 Days of paitations and chest pain,unlikely PE she is anticogulated with eliquis,EKG normal .I think she can be d/c home with outpatient w/u she may need holter/event recorder,myoview but this test can be done as outpatient Lab Data Result diagrams: 02/12/22 16:11 02/12/22 16:11 Labs: Lab Results 02/12/22 02/12/22 02/12/22 Range/Units 16:10 16:10 16:11 WBC 5.0 (4.8-10.8) X10*3/uL RBC 4.79 (4.20-5.50) X10*6/uL Hgb 13.7 (12.0-16.0) g/dl Hct 43.1 (37.0-47.0) % MCV 90.0 (80.0-98.0) fL MCH 28.6 (27.0-33.0) pg MCHC 31.8 (31.0-35.0) g/dl RDW 12.8 (11.0-16.0) % Plt Count 218 (160-400) X10*3/uL MPV 10.9 (9.4-12.3) fL Immature Gran % (Auto) 0.6 H (0.0-0.4) % Neut % (Auto) 61.0 (45-73) % Lymph % (Auto) 24.9 (20-40) % [place] % (Auto) 12.1 H (2-11) % Eos % (Auto) 1.0 (0-4) % Baso % (Auto) 0.4 (0-2) % Lymph # (Auto) 1.2 (1.2-4.9) X10*3/uL [place] # (Auto) 0.6 (0.1-1.2) X10*3/uL Eos # (Auto) 0.1 (0.0-0.4) X10*3/uL Baso # (Auto) 0.0 (0.0-0.2) X10*3/uL Abs Immat Gran (auto) 0.03 (0.00-0.03) X10*3/uL Absolute Neuts (auto) 3.0 (2.0-8.3) x10*3/uL Absolute Nucleated RBC 0.000 (0.0-0.012) X10*3/uL Nucleated RBC % (auto) 0.0 (0.0-0.2) /100WBC Sodium (135-145) mmol/L Potassium (3.3-5.1) mmol/L Chloride (96-108) mmol/L Carbon Dioxide (22-29) mmol/L Anion Gap (12-20) BUN (9-16) mg/dL Creatinine (0.5-1.4) mg/dL Estim Creat Clear Calc Estimated GFR Random Glucose (60-115) mg/dL Calcium (8.4-10.2) mg/dL Total Bilirubin (0.0-1.0) mg/dL AST (5-31) U/L ALT (0-31) U/L Alkaline Phosphatase (39-117) U/L Troponin I High Sens 4.0 (<3.5-17.0) ng/L Total Protein (6.5-8.0) g/dL Albumin (3.5-5.0) g/dL COVID-19 (HEMA) Negative (Negative) COVID-19 Clin Com See Note 02/12/22 02/12/22 Range/Units 16:11 20:16 WBC (4.8-10.8) X10*3/uL RBC (4.20-5.50) X10*6/uL Hgb (12.0-16.0) g/dl Hct (37.0-47.0) % MCV (80.0-98.0) fL MCH (27.0-33.0) pg MCHC (31.0-35.0) g/dl RDW (11.0-16.0) % Plt Count (160-400) X10*3/uL MPV (9.4-12.3) fL Immature Gran % (Auto) (0.0-0.4) % Neut % (Auto) (45-73) % Lymph % (Auto) (20-40) % [place] % (Auto) (2-11) % Eos % (Auto) (0-4) % Baso % (Auto) (0-2) % Lymph # (Auto) (1.2-4.9) X10*3/uL [place] # (Auto) (0.1-1.2) X10*3/uL Eos # (Auto) (0.0-0.4) X10*3/uL Baso # (Auto) (0.0-0.2) X10*3/uL Abs Immat Gran (auto) (0.00-0.03) X10*3/uL Absolute Neuts (auto) (2.0-8.3) x10*3/uL Absolute Nucleated RBC (0.0-0.012) X10*3/uL Nucleated RBC % (auto) (0.0-0.2) /100WBC Sodium 140 (135-145) mmol/L Potassium 5.2 H (3.3-5.1) mmol/L Chloride 107 (96-108) mmol/L Carbon Dioxide 26 (22-29) mmol/L Anion Gap 12 (12-20) BUN 21 H (9-16) mg/dL Creatinine 1.00 (0.5-1.4) mg/dL Estim Creat Clear Calc TNP Estimated GFR 54 Random Glucose 138 H (60-115) mg/dL Calcium 9.8 D (8.4-10.2) mg/dL Total Bilirubin 0.5 (0.0-1.0) mg/dL AST 25 (5-31) U/L ALT 21 (0-31) U/L Alkaline Phosphatase 158 H (39-117) U/L Troponin I High Sens 3.9 (<3.5-17.0) ng/L Total Protein 7.3 (6.5-8.0) g/dL Albumin 4.1 (3.5-5.0) g/dL COVID-19 (HEMA) (Negative) COVID-19 Clin Com Imaging Data Chest x-ray: Radiologist's impression: EXAMINATION: XR CHEST CLINICAL INFORMATION: Cough. COMPARISON: 06/04/2021 chest radiograph. TECHNIQUE: Frontal view of the chest was obtained. FINDINGS: No significant abnormality is noted involving the heart, lungs, mediastinum, bony thorax or soft tissues. XR/XR chest 1V IMPRESSION: No acute cardiopulmonary process. ? Dictated By: Devin Seay MD Signed By: <Electronically signed by Devin Seay MD in [place]> 02/12/22 1739 ECG Data ECG #1: ECG interpretation date: 02/12/22 Pacemaker model: NSR [address]-t changes Discharge Plan Discharge Clinical Impression: Chest pain Patient Disposition: Home, Self-Care Instructions: Chest Pain (DC) Additional Instructions: follow up with it support engineer call in am and make appointment Prescriptions: No Action hydrocodone-acetaminophen 5-300 mg tablet 1 tab PO BID PRN (Reason: pain) 3 Days Qty: 10 0RF ondansetron HCl [Zofran] 4 mg tablet 4 mg PO Q6H PRN (Reason: nausea and vomiting) Qty: 14 0RF loperamide [Anti-Diarrheal (loperamide)] 2 mg capsule 2 mg PO Q6H PRN (Reason: loose stool) Qty: 14 0RF donepezil 5 mg tablet 1 tab PO BEDTIME 0RF sertraline 100 mg tablet 2 tab PO QAM 0RF diltiazem HCl 120 mg capsule,extended release 12 hr 1 cap PO BID 0RF montelukast 10 mg tablet 1 tab PO BEDTIME 0RF benazepril 10 mg tablet 1 tab PO QAM 0RF Eliquis 5 mg tablet 5 mg PO BID Qty: 90 0RF Rx Instructions: take 10 mg bid for 7 days then 5 mg BID lidocaine 4 % adhesive patch,medicated 1 patch topical DAILY PRN (Reason: pain) Qty: 10 0RF Rx Instructions: may leave on for up to 12 hrs atorvastatin 80 mg Tablet 80 mg PO BEDTIME Qty: 30 0RF Referrals: Sher Dugan MD [Physician] -
[2022-02-12 23:17] VITALS: BP 153/83; PULSE 72; RESP 15; TEMP 36.7; O2SAT 98
== END 2022-02-13 00:07 | disposition home or self-care (01) ==
PROVIDERS: Physician Assistant Medical; Emergency Provider Emergency Medicine; PCP Family Medicine
DX: R07.9 Chest pain, unspecified (principal); Z20.822 Contact with and (suspected) exposure to COVID-19; I10 Essential (primary) hypertension; E11.9 Type 2 diabetes mellitus without complications; E78.5 Hyperlipidemia, unspecified; Z86.711 Personal history of pulmonary embolism; Z79.01 Long term (current) use of anticoagulants; Z79.899 Other long term (current) drug therapy; Z79.02 Long term (current) use of antithrombotics/antiplatelets
CPT/HCPCS: 36415; 71045; 80053; 84484; 85025; 87635; 93005; 99283

== ENCOUNTER 2022-04-06 20:53 | Emergency (ER) | payer OTHER, SELFPAY ==
--- NOTE | ~2022-04-06 | CT_ITS ---
EXAMINATION: CT HEAD WITHOUT CONTRAST CLINICAL INFORMATION: Headache. COMPARISON: CT head 03/30/2021 TECHNIQUE: Contiguous axial imaging was performed from the skull base to vertex without intravenous administration of contrast. Coronal and sagittal reformatted images are performed at CT scanner This CT examination was performed using dose optimization techniques as appropriate, variously including the following: *Automated exposure control *Adjustment of mA and/or kV according to patient size (this includes techniques or standardized protocols for targeted exams where dose is matched to indication/reason for exam; i.e. extremities or head) *Use of iterative reconstruction technique DLP: 561 mGy-cm FINDINGS: There is no evidence of acute intracranial hemorrhage or territorial infarction. No abnormal mass effect or midline shift is seen. [place] to white matter differentiation is well preserved. No extra-axial fluid collections are identified. The ventricles are normal in size. There is no abnormal attenuation within the brain parenchyma. The osseous structures and soft tissues are normal. The mastoid air cells and visualized portions of the paranasal sinuses are well aerated. CT/CT head/brain wo con IMPRESSION: No acute intracranial pathology.
[2022-04-06 21:20] VITALS: BP 154/80; PULSE 80; RESP 18; TEMP 36; O2SAT 96; O2SAT 97; BMI 22.5
--- NOTE | 2022-04-06 21:24 | ECG_ITS ---
Test Reason : WEAKNESS Blood Pressure : / mmHG Vent. Rate : 066 BPM Atrial Rate : 066 BPM P-R Int : 154 ms QRS Dur : 064 ms QT Int : 420 ms P-R-T Axes : 063 -02 033 degrees QTc Int : 440 ms Normal sinus rhythm Normal ECG When compared with ECG of 12-FEB-2022 16:01, No significant change was found Referred By: Mell Lai Electronically Signed By:Sher Dugan
--- NOTE | 2022-04-06 21:45 | ED_ITS ---
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 Started about 2 hours ago patient was cleaning the kitchen no strenuous work or heavy lifting started to have left-sided neck pain that radiated down to the left upper extremities then shortly after patient started to have headache in the occipital area described as severe 10/10, patient had no neck stiffness, no photophobia, felt nauseous but no vomiting , no fever or chills. Nothing aggravate the headache nothing relieve the headache. While patient in the ED that is slight spontaneous improvement of the headache. Related Data Home Medications Medication Instructions Recorded Confirmed benazepril 10 mg tablet 1 tab PO QAM 11/20/20 05/11/21 diltiazem HCl 120 mg 1 cap PO BID 11/20/20 05/11/21 capsule,extended release 12 hr donepezil 5 mg tablet 1 tab PO BEDTIME 11/20/20 05/11/21 montelukast 10 mg tablet 1 tab PO BEDTIME 11/20/20 05/11/21 sertraline 100 mg tablet 2 tab PO QAM 11/20/20 05/11/21 Previous Rx's Medication Instructions Recorded loperamide 2 mg capsule 2 mg PO Q6H PRN loose stool #14 10/31/20 (Anti-Diarrheal (loperamide)) caps ondansetron HCl 4 mg tablet 4 mg PO Q6H PRN nausea and 10/31/20 (Zofran) vomiting #14 tabs apixaban 5 mg tablet (Eliquis) 5 mg PO BID #90 tabs 11/22/20 hydrocodone 5 mg-acetaminophen 300 1 tab PO BID PRN pain 3 days #10 11/23/20 mg tablet tabs lidocaine 4 % topical patch 1 patch topical DAILY PRN pain #10 03/26/21 ea atorvastatin 80 mg tablet 80 mg PO BEDTIME #30 tabs 05/12/21 Allergies Allergy/AdvReac Type Severity Reaction Status Date / Time oxycodone [OXYCODONE] Allergy Unknown UNKNOWN Verified 02/12/22 16:59 Review of Systems Review of Systems: All other systems are reviewed and are negative Constitutional: Reports as per HPI and Reports no additional constitutional complaints Eyes: Reports as per HPI and Reports no additional eye complaints Reports system reviewed and no additional complaints, except as documented Cardiovascular: Reports as per HPI and Reports no additional cardiovascular complaints Respiratory: Reports as per HPI and Reports no additional respiratory complaints Gastrointestinal: Reports as per HPI and Reports no additional gastrointestinal complaints Genitourinary: Reports no additional female genitourinary complaints Musculoskeletal: Reports no additional musculoskeletal complaints Skin/Breast: Reports system reviewed and no additional complaints, except as docu Psychiatric: Reports no additional psychiatric complaints Endocrine: Reports no additional endocrine complaints Hematologic/Lymphatic: Reports no additional hematologic/lymphatic complaints Allergic/Immunologic: Reports no additional allergic/immunologic complaints Reports system reviewed and no additional complaints, except as documented and Reports Abnormal speech present [facility] Past Medical History Medical History Aortic insufficiency Asthma Depression Diabetes GERD (gastroesophageal reflux disease) High cholesterol Hypertension Multinodular goiter (nontoxic) NSTEMI (non-ST elevated myocardial infarction) Pancreatitis Pulmonary embolism Surgical History No history of previous surgery Family History Family History Father Hypertension Heart disease Mother Hypertension Heart disease Social History Social History Household Members: Family and Other Household Members Other:: 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 is 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 Housing: Apartment Do you presently have visiting nurse or other home services: No Alcohol intake: never Patient Tobacco Use Status: Never used Tobacco Second Hand Smoke Exposure: No Advance Directives: No Advance Directives Information Provided: No service: No Current occupational status: unemployed and disabled Physical Exam ED Vital Signs: Vital Signs - 24 hr 04/06/22 21:20 04/06/22 23:43 Temperature 96.8 F 97.9 F Pulse Rate 80 67 Respiratory Rate 18 15 Blood Pressure 154/80 H 156/80 H Pulse Oximetry 96 95 Oxygen Delivery Method Room Air Room Air BMI result Body Mass Index 22.5 vital signs have been reviewed as appeared to be correct. Blood pressure normal. Heart rate normal. Respiration rate normal. Temperature normal. Oxygen saturation normal. Appearance: Alert. Oriented X3. No acute distress. Head: Normal external exam. Normocephalic. Atraumatic. No [place] signs noted. No raccoon eyes noted Eyes: PERRLA. EOMI. Conjunctiva and sclera normal. Eyelids normal. ENT: TM's Normal. Pharynx normal. Uvula midline. Moist mucous membranes. No trismus noted. No drooling noted. No muffled voice noted. Neck: Normal inspection. Neck supple. FROM. No adenopathy. Thyroid Normal. No meningeal signs. No neck mass noted. CVS: Normal heart rate and rhythm. Heart sound normal. No murmurs noted. Pulses normal throughout. Respiratory: No respiratory distress. Painless inspiration. Breath sounds nor mal. No wheezes/rales/rhonchi noted. Chest nontender. No accessory muscle usage noted or decreased air movement noted. Abdomen: Soft and nontender. Bowel sounds normal in all 4 quadrants. No distent ion noted. No organomegaly noted. No visible injury noted. Back: No CVA tenderness. Full range of motion noted. Skin: Skin warm and dry. Normal skin color. Normal skin turgor. No rashes/lesions/lacerations noted. Extremities: No lower extremity edema. Extremities exhibit normal range of mot ion. Extremities nontender. Neuro: Oriented X 3. Cranial nerve exam: II-XII are grossly intact No motor deficit. No sensory deficit. Reflexes normal. Course Course Course Narrative: 77-year-old female came in for evaluation of headache for the past [address] hours with negative plain CT of the head, normal neuro exam, patient feels better after Tylenol and Toradol, labs are unremarkable. Physical exam is consistent with left cervical radiculopathy that is causing the patient's symptoms. Medical Decision Making Lab Data Lab results reviewed: Yes I reviewed the patient's lab results. Result diagrams: 04/06/22 23:46 04/06/22 23:46 Labs: Lab Results 04/06/22 04/06/22 04/06/22 Range/Units 23:46 23:46 23:46 WBC 4.7 L (4.8-10.8) X10*3/uL RBC 4.12 L (4.20-5.50) X10*6/uL Hgb 12.2 (12.0-16.0) g/dl Hct 37.3 (37.0-47.0) % MCV 90.5 (80.0-98.0) fL MCH 29.6 (27.0-33.0) pg MCHC 32.7 (31.0-35.0) g/dl RDW 12.7 (11.0-16.0) % Plt Count 175 (160-400) X10*3/uL MPV 11.2 (9.4-12.3) fL Immature Gran % (Auto) 0.2 (0.0-0.4) % Neut % (Auto) 54.6 (45-73) % Lymph % (Auto) 29.3 (20-40) % [place] % (Auto) 12.4 H (2-11) % Eos % (Auto) 2.6 (0-4) % Baso % (Auto) 0.9 (0-2) % Lymph # (Auto) 1.4 (1.2-4.9) X10*3/uL [place] # (Auto) 0.6 (0.1-1.2) X10*3/uL Eos # (Auto) 0.1 (0.0-0.4) X10*3/uL Baso # (Auto) 0.0 (0.0-0.2) X10*3/uL Abs Immat Gran (auto) 0.01 (0.00-0.03) X10*3/uL Absolute Neuts (auto) 2.6 (2.0-8.3) x10*3/uL Absolute Nucleated RBC 0.000 (0.0-0.012) X10*3/uL Nucleated RBC % (auto) 0.0 (0.0-0.2) /100WBC Sodium 139 (135-145) mmol/L Potassium 4.4 (3.3-5.1) mmol/L Chloride 109 H (96-108) mmol/L Carbon Dioxide 24 (22-29) mmol/L Anion Gap 10 L (12-20) BUN 18 H (9-16) mg/dL Creatinine 0.94 (0.5-1.4) mg/dL Estim Creat Clear Calc 36.0 Estimated GFR 58 Random Glucose 111 (60-115) mg/dL Calcium 8.6 D (8.4-10.2) mg/dL Total Bilirubin 0.3 (0.0-1.0) mg/dL Direct Bilirubin 0.2 (0.0-0.5) mg/dL AST 28 (5-31) U/L ALT 21 (0-31) U/L Alkaline Phosphatase 169 H (39-117) U/L Troponin I High Sens 5.1 (<3.5-17.0) ng/L B-Natriuretic Peptide 66 (<100) pg/mL Total Protein 6.8 (6.5-8.0) g/dL Albumin 4.0 (3.5-5.0) g/dL Lipase 51 (8-78) U/L Urine Color Urine Appearance Urine pH (5.0-8.0) Ur Specific [place] (1.005-1.025) Urine Protein (NEG-TRACE) MG/DL Urine Glucose (UA) (NEG) MG/DL Urine Ketones (NEG) MG/DL Urine Blood (NEG) Urine Nitrite (NEG) Ur Leukocyte Esterase (NEG) COVID-19 (HEMA) (Negative) COVID-19 Clin Com 04/07/22 04/07/22 Range/Units 01:03 01:03 WBC (4.8-10.8) X10*3/uL RBC (4.20-5.50) X10*6/uL Hgb (12.0-16.0) g/dl Hct (37.0-47.0) % MCV (80.0-98.0) fL MCH (27.0-33.0) pg MCHC (31.0-35.0) g/dl RDW (11.0-16.0) % Plt Count (160-400) X10*3/uL MPV (9.4-12.3) fL Immature Gran % (Auto) (0.0-0.4) % Neut % (Auto) (45-73) % Lymph % (Auto) (20-40) % [place] % (Auto) (2-11) % Eos % (Auto) (0-4) % Baso % (Auto) (0-2) % Lymph # (Auto) (1.2-4.9) X10*3/uL [place] # (Auto) (0.1-1.2) X10*3/uL Eos # (Auto) (0.0-0.4) X10*3/uL Baso # (Auto) (0.0-0.2) X10*3/uL Abs Immat Gran (auto) (0.00-0.03) X10*3/uL Absolute Neuts (auto) (2.0-8.3) x10*3/uL Absolute Nucleated RBC (0.0-0.012) X10*3/uL Nucleated RBC % (auto) (0.0-0.2) /100WBC Sodium (135-145) mmol/L Potassium (3.3-5.1) mmol/L Chloride (96-108) mmol/L Carbon Dioxide (22-29) mmol/L Anion Gap (12-20) BUN (9-16) mg/dL Creatinine (0.5-1.4) mg/dL Estim Creat Clear Calc Estimated GFR Random Glucose (60-115) mg/dL Calcium (8.4-10.2) mg/dL Total Bilirubin (0.0-1.0) mg/dL Direct Bilirubin (0.0-0.5) mg/dL AST (5-31) U/L ALT (0-31) U/L Alkaline Phosphatase (39-117) U/L Troponin I High Sens (<3.5-17.0) ng/L B-Natriuretic Peptide (<100) pg/mL Total Protein (6.5-8.0) g/dL Albumin (3.5-5.0) g/dL Lipase (8-78) U/L Urine Color YELLOW Urine Appearance CLEAR Urine pH 7.0 (5.0-8.0) Ur Specific [place] 1.010 (1.005-1.025) Urine Protein NEG (NEG-TRACE) MG/DL Urine Glucose (UA) NEG (NEG) MG/DL Urine Ketones NEG (NEG) MG/DL Urine Blood NEG (NEG) Urine Nitrite NEG (NEG) Ur Leukocyte Esterase NEG (NEG) COVID-19 (HEMA) Negative (Negative) COVID-19 Clin Com See Note Imaging Data CT scan - head: Attestation: I personally reviewed and interpreted this imaging study as follows: Radiologist's impression: no acute intracranial pathology. Discharge Plan Discharge Clinical Impression: Headache, Cervical radiculopathy Patient Disposition: Home, Self-Care Instructions: Cervical Radiculopathy (ED) Prescriptions: No Action hydrocodone-acetaminophen 5-300 mg tablet 1 tab PO BID PRN (Reason: pain) 3 Days Qty: 10 0RF ondansetron HCl [Zofran] 4 mg tablet 4 mg PO Q6H PRN (Reason: nausea and vomiting) Qty: 14 0RF loperamide [Anti-Diarrheal (loperamide)] 2 mg capsule 2 mg PO Q6H PRN (Reason: loose stool) Qty: 14 0RF donepezil 5 mg tablet 1 tab PO BEDTIME sertraline 100 mg tablet 2 tab PO QAM diltiazem HCl 120 mg capsule,extended release 12 hr 1 cap PO BID montelukast 10 mg tablet 1 tab PO BEDTIME benazepril 10 mg tablet 1 tab PO QAM Eliquis 5 mg tablet 5 mg PO BID Qty: 90 0RF Rx Instructions: take 10 mg bid for 7 days then 5 mg BID lidocaine 4 % adhesive patch,medicated 1 patch topical DAILY PRN (Reason: pain) Qty: 10 0RF Rx Instructions: may leave on for up to 12 hrs atorvastatin 80 mg Tablet 80 mg PO BEDTIME Qty: 30 0RF Referrals: Tiffany Kent MD [Primary Care Provider] -
[2022-04-06] MEDS: Acetaminophen 325 MG TABLET 650 MG PO (22:57)
[2022-04-06] MEDS: 0.9 % Sodium Chloride 1,000 ML 999 ML IV (23:02)
--- NOTE | 2022-04-06 23:03 | PC.NURSE ---
medications administered per MAR, pt's pain assessed
[2022-04-06] MEDS: Ketorolac Tromethamine 30 MG/ML VIAL IVPUSH (23:37)
[2022-04-06 23:43] VITALS: BP 156/80; PULSE 67; RESP 15; TEMP 36.6; O2SAT 95
[2022-04-06 23:52] LABS: Basophils Percent Auto 0.9 % (0-2); Eosinophils Absolute Auto 0.1 X10*3/uL (0.0-0.4); Eosinophils Percent Auto 2.6 % (0-4); Hematocrit 37.3 % (37.0-47.0); Hemoglobin 12.2 g/dl (12.0-16.0); Imm Gran Abs Auto 0.01 X10*3/uL (0.00-0.03); Imm Gran Pct Auto 0.2 % (0.0-0.4); Lymphocytes Absolute Auto 1.4 X10*3/uL (1.2-4.9); Lymphocytes Percent Auto 29.3 % (20-40); MANUAL DIFF FLAG NO; Mean Corpuscular HGB Conc 32.7 g/dl (31.0-35.0); Mean Corpuscular Hemoglobin 29.6 pg (27.0-33.0); Mean Corpuscular Volume 90.5 fL (80.0-98.0); Mean Platelet Volume 11.2 fL (9.4-12.3); Monocytes Absolute Auto 0.6 X10*3/uL (0.1-1.2); Monocytes Percent Auto 12.4 % (2-11); Neutrophils Absolute Auto 2.6 x10*3/uL (2.0-8.3); Neutrophils Percent Auto 54.6 % (45-73); Platelet Count 175 X10*3/uL (160-400); Red Blood Count 4.12 X10*6/uL (4.20-5.50); Red Cell Distribution Width 12.7 % (11.0-16.0); White Blood Count 4.7 X10*3/uL (4.8-10.8)
[2022-04-07] VITALS: BP 156/80; PULSE 67; RESP 15; TEMP 36.6; O2SAT 95
[2022-04-07 00:18] LABS: Alanine Aminotransferase 21 U/L (0-31); Alkaline Phosphatase 169 U/L (39-117); Anion Gap 10 (12-20); Aspartate Amino Transferase 28 U/L (5-31); Bilirubin Direct 0.2 mg/dL (0.0-0.5); Bilirubin Total 0.3 mg/dL (0.0-1.0); Blood Urea Nitrogen 18 mg/dL (9-16); Calcium 8.6 mg/dL (8.4-10.2); Carbon Dioxide 24 mmol/L (22-29); Chloride 109 mmol/L (96-108); Estimated Glomerular Filt Rate 58; Glucose Random 111 mg/dL (60-115); Lipase 51 U/L (8-78); Potassium 4.4 mmol/L (3.3-5.1); Sodium 139 mmol/L (135-145); Total Protein 6.8 g/dL (6.5-8.0)
[2022-04-07 00:26] LABS: B Type Natriuretic Peptide 66 pg/mL (<100); Troponin-I High Sensitivity 5.1 ng/L (<3.5-17.0)
[2022-04-07 01:21] LABS: Appearance Urine CLEAR; Color Urine YELLOW; Glucose Urine UA NEG (NEG); Leukocyte Esterase Urine NEG (NEG); Nitrite Urine NEG (NEG); Urine Blood NEG (NEG); Urine Ketones NEG (NEG); Urine Protein NEG (NEG-TRACE)
[2022-04-07 01:32] LABS: COVID-19 Test Negative (Negative); IDNOW Serial# 16C4AD1C
[2022-04-07 02:00] VITALS: BP 120/67; PULSE 63; RESP 16; TEMP 36.6; O2SAT 97
== END 2022-04-07 02:15 | disposition home or self-care (01) ==
PROVIDERS: Emergency Provider Emergency Medicine; PCP Family Medicine
DX: M54.12 Radiculopathy, cervical region (principal); R51.9 Headache, unspecified; R06.02 Shortness of breath; Z20.822 Contact with and (suspected) exposure to COVID-19; Z79.899 Other long term (current) drug therapy
CPT/HCPCS: 36415; 70450; 80048; 80076; 81003; 83690; 83880; 84484; 85025; 87635; 93005; 96361; 96374; 99284; 99285; J1885

== ENCOUNTER 2022-04-14 07:54 | Emergency (ER) | payer OTHER, SELFPAY ==
--- NOTE | 2022-04-14 08:03 | ECG_ITS ---
Test Reason : lt shlder/arm pain Blood Pressure : / mmHG Vent. Rate : 065 BPM Atrial Rate : 065 BPM P-R Int : 140 ms QRS Dur : 068 ms QT Int : 396 ms P-R-T Axes : 057 003 037 degrees QTc Int : 411 ms Normal sinus rhythm Normal ECG When compared with ECG of 07-APR-2022 00:43, No significant change was found Referred By: Sosa Hurt Electronically Signed By:RAGHU MULLINS
[2022-04-14 08:24] LABS: MANUAL DIFF FLAG NO
[2022-04-14 08:26] LABS: Basophils Percent Auto 0.5 % (0-2); Eosinophils Absolute Auto 0.2 X10*3/uL (0.0-0.4); Eosinophils Percent Auto 4.6 % (0-4); Hematocrit 41.6 % (37.0-47.0); Hemoglobin 13.3 g/dl (12.0-16.0); Imm Gran Abs Auto 0.01 X10*3/uL (0.00-0.03); Imm Gran Pct Auto 0.3 % (0.0-0.4); Lymphocytes Absolute Auto 1.5 X10*3/uL (1.2-4.9); Lymphocytes Percent Auto 38.3 % (20-40); Mean Corpuscular Hemoglobin 28.9 pg (27.0-33.0); Mean Corpuscular Volume 90.4 fL (80.0-98.0); Mean Platelet Volume 10.6 fL (9.4-12.3); Monocytes Absolute Auto 0.5 X10*3/uL (0.1-1.2); Monocytes Percent Auto 13.9 % (2-11); Neutrophils Absolute Auto 1.7 x10*3/uL (2.0-8.3); Neutrophils Percent Auto 42.4 % (45-73); Platelet Count 201 X10*3/uL (160-400); Red Cell Distribution Width 12.9 % (11.0-16.0); White Blood Count 3.9 X10*3/uL (4.8-10.8)
[2022-04-14 08:45] LABS: Alanine Aminotransferase 18 U/L (0-31); Albumin Level 4.2 g/dL (3.5-5.0); Alkaline Phosphatase 151 U/L (39-117); Anion Gap 12 (12-20); Aspartate Amino Transferase 24 U/L (5-31); Bilirubin Direct 0.3 mg/dL (0.0-0.5); Bilirubin Total 0.5 mg/dL (0.0-1.0); Blood Urea Nitrogen 18 mg/dL (9-16); Calcium 9.6 mg/dL (8.4-10.2); Carbon Dioxide 26 mmol/L (22-29); Chloride 109 mmol/L (96-108); Estimated Glomerular Filt Rate 53; Glucose Random 103 mg/dL (60-115); Potassium 4.8 mmol/L (3.3-5.1); Sodium 142 mmol/L (135-145); Total Protein 7.3 g/dL (6.5-8.0)
[2022-04-14 08:49] LABS: Troponin-I High Sensitivity < 3.5 ng/L (<3.5-17.0)
[2022-04-14 08:59] VITALS: BP 138/69; PULSE 66; RESP 16; TEMP 35.7; O2SAT 95; BMI 22.8
--- NOTE | 2022-04-14 10:07 | ED_ITS ---
HPI - General Adult General Chief complaint: General Medical Stated complaint: Headache/L shoulder pain/L arm pain no inj Time Seen by Provider: 04/14/22 08:03 Source: patient Mode of arrival: ambulatory Limitations: no limitations History of Present Illness HPI narrative: 77-year-old female history of PE, cervical radiculopathy, and high blood pressure presents to ED for chronic neck pain exacerbation radiating down left shoulder and headache for the past two weeks. Patient states pain when moving neck left and also the right. Patient denies any recent trauma to the head or neck. Patient states tingling in fingers rating from neck pain for the past 2 weeks. Patient states history of cervical radiculopathy but no improvement with Tylenol. Patient denies any slurred speech, facial droop, chest pain, loss of visions, paralysis of extremties, recent trauma or shortness of breath. Related Data Home Medications Medication Instructions Recorded Confirmed benazepril 10 mg tablet 1 tab PO QAM 11/20/20 05/11/21 diltiazem HCl 120 mg 1 cap PO BID 11/20/20 05/11/21 capsule,extended release 12 hr donepezil 5 mg tablet 1 tab PO BEDTIME 11/20/20 05/11/21 montelukast 10 mg tablet 1 tab PO BEDTIME 11/20/20 05/11/21 sertraline 100 mg tablet 2 tab PO QAM 11/20/20 05/11/21 Previous Rx's Medication Instructions Recorded loperamide 2 mg capsule 2 mg PO Q6H PRN loose stool #14 10/31/20 (Anti-Diarrheal (loperamide)) caps ondansetron HCl 4 mg tablet 4 mg PO Q6H PRN nausea and 10/31/20 (Zofran) vomiting #14 tabs apixaban 5 mg tablet (Eliquis) 5 mg PO BID #90 tabs 11/22/20 hydrocodone 5 mg-acetaminophen 300 1 tab PO BID PRN pain 3 days #10 11/23/20 mg tablet tabs lidocaine 4 % topical patch 1 patch topical DAILY PRN pain #10 03/26/21 ea atorvastatin 80 mg tablet 80 mg PO BEDTIME #30 tabs 05/12/21 hydrocodone 5 mg-acetaminophen 300 1 tab PO BID PRN pain 3 days #8 04/14/22 mg tablet tabs prednisone 20 mg tablet 40 mg PO DAILY 5 days #10 tabs 04/14/22 Allergies Allergy/AdvReac Type Severity Reaction Status Date / Time oxycodone [OXYCODONE] Allergy Unknown UNKNOWN Verified 02/12/22 16:59 Review of Systems Review of Systems: Chronic neck pain radiating down left shoulder. 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 Housing: Apartment Do you presently have visiting nurse or other home services: No Alcohol intake: never Patient Tobacco Use Status: Never used Tobacco Second Hand Smoke Exposure: No Advance Directives: No Advance Directives Information Provided: Yes service: No Current occupational status: unemployed and disabled Physical Exam ED Vital Signs: Vital Signs - 24 hr 04/14/22 08:59 Temperature 96.3 F L Pulse Rate 66 Respiratory Rate 16 Blood Pressure 138/69 Pulse Oximetry 95 Oxygen Delivery Method Room Air BMI result Body Mass Index 22.8 Const General: cooperative, healthy appearing, comfortable, no acute distress, well developed, alert, awake and Physically active Orientation/consciousness: patient oriented x3 HENMT Head: Yes normal to inspection, Yes No palpable skull fracture present, Yes normocephalic, Yes atraumatic and No abrasion Eyes General: appearance normal, both eyes and all related structures Neck Other: Positive for pain on range of motion of neck. Neck: Yes normal visual inspection, Yes full ROM, Yes no lymphadenopathy, Yes no meningeal signs, Yes trachea midline, Yes supple, No anterior neck swelling and Yes tender (posterior cervical) Chest Chest palpation & inspection: normal inspection of the chest and normal palpation of entire chest wall Resp Effort & Inspection: normal respiratory effort and able to speak in complete se ntences Auscultation: clear to auscultation bilaterally Cardio Jugular venous distension: no JVD Heart sounds: S1 normal heart sound present and S2 normal heart sound present GI Inspection: Yes normal to inspection and No abdominal wall ecchymosis Palpation (GI): Soft to palpation, not firm, nontender, no guarding and not rigid General: No CVA tenderness and Yes no CVA tenderness Back/Spine/Pelvis Back: no CVA tenderness, No CVA tenderness and No back tenderness Skin General skin exam: no rashes or lesions noted and elasticity normal Neuro Other: negative for any neuro deficit. negative slurred speech. Negative facial droop. Negative pronator drift. All extremities equal strength 5+. [id number] and rapid head movement intact. Negative Romberg. General: patient oriented x3, gait normal, tone normal, no meningeal signs and CN's II-XI intact bilaterally Cranial nerves: Yes CN's II-XII intact bilaterally Extrem General: Yes normal to inspection and Yes full ROM Shoulder/upper arm images: 1. Negative for crepitus, ecchymosis, or deformity. Positive for left shoulder pain on range of motion. Left upper extremity negative for swelling, redness, hotness, coolness, ecchymosis. Neuro/ vascular exam intact. Motor exam intact but decreased due to shoulder pain Psych Appearance: grossly normal, well kempt and not disheveled Course Course Course Narrative: due to age patient will have cardiac evaluation. Reevaluation(s) Reevaluation #1: EKG negative STEMI. Neuro exam is intact. Symptoms due to cervical radiculopathy which is severe as per patient's CT scan 2020. Patient informed to follow-up with primary care provider for either pain management referral, physical therapy, or surgery. Troponin labs at baseline and normal after symptoms for two weeks. Patient is safe for discharge. No need for repeating head CT of cervical spine CT scan. Patient taking hydrocodone before in the past Time: 10:15 Medical Decision Making [facility] Narrative Medical decision making narrative: cervical radiculopathy Lab Data Result diagrams: 04/14/22 08:18 04/14/22 08:18 Labs: Lab Results 04/14/22 04/14/22 04/14/22 Range/Units 08:18 08:18 08:18 WBC 3.9 L (4.8-10.8) X10*3/uL RBC 4.60 (4.20-5.50) X10*6/uL Hgb 13.3 (12.0-16.0) g/dl Hct 41.6 (37.0-47.0) % MCV 90.4 (80.0-98.0) fL MCH 28.9 (27.0-33.0) pg MCHC 32.0 (31.0-35.0) g/dl RDW 12.9 (11.0-16.0) % Plt Count 201 (160-400) X10*3/uL MPV 10.6 (9.4-12.3) fL Immature Gran % (Auto) 0.3 (0.0-0.4) % Neut % (Auto) 42.4 L (45-73) % Lymph % (Auto) 38.3 (20-40) % [place] % (Auto) 13.9 H (2-11) % Eos % (Auto) 4.6 H (0-4) % Baso % (Auto) 0.5 (0-2) % Lymph # (Auto) 1.5 (1.2-4.9) X10*3/uL [place] # (Auto) 0.5 (0.1-1.2) X10*3/uL Eos # (Auto) 0.2 (0.0-0.4) X10*3/uL Baso # (Auto) 0.0 (0.0-0.2) X10*3/uL Abs Immat Gran (auto) 0.01 (0.00-0.03) X10*3/uL Absolute Neuts (auto) 1.7 L (2.0-8.3) x10*3/uL Absolute Nucleated RBC 0.000 (0.0-0.012) X10*3/uL Nucleated RBC % (auto) 0.0 (0.0-0.2) /100WBC Sodium 142 (135-145) mmol/L Potassium 4.8 (3.3-5.1) mmol/L Chloride 109 H (96-108) mmol/L Carbon Dioxide 26 (22-29) mmol/L Anion Gap 12 (12-20) BUN 18 H (9-16) mg/dL Creatinine 1.02 (0.5-1.4) mg/dL Estim Creat Clear Calc TNP Estimated GFR 53 Random Glucose 103 (60-115) mg/dL Calcium 9.6 D (8.4-10.2) mg/dL Total Bilirubin 0.5 (0.0-1.0) mg/dL Direct Bilirubin 0.3 (0.0-0.5) mg/dL AST 24 (5-31) U/L ALT 18 (0-31) U/L Alkaline Phosphatase 151 H (39-117) U/L Troponin I High Sens < 3.5 (<3.5-17.0) ng/L Total Protein 7.3 (6.5-8.0) g/dL Albumin 4.2 (3.5-5.0) g/dL ECG Data Interpretation: normal sinus rhythm. Normal EKG. Ventricular rate 65. Pr interval 140. QRS at 68. Qtc 411. Negative STEMI Discharge Plan Discharge Clinical Impression: Cervical radiculopathy Patient Disposition: Home, Self-Care Instructions: Cervical Radiculopathy (ED) Additional Instructions: shahida s?ntomas se deben a yenifer radiculopat?a cervical. Necesitar? un seguimiento con mo proveedor de atenci?n primaria para derivarlo a manejo del dolor, fisi oterapia, un cirujano de columna. Se le leda? de gerardo con analg?sicos y esteroides. El medicamento para el dolor ser? hidrocodona narc?cookie que haya tomado antes en el pasado. Los efectos secundarios de la hidrocodona son la somnolencia. No tome mientras trabaja, conduce o realiza cualquier actividad f?martin. Mejor jae por la noche. Regrese al servicio de urgencias por cualquier dolor tor?cico, dificultad para respirar, ca?da facial, par?lisis de las extremidades, mareos, n?useas, v?mitos, empeoramiento del dolor de pedrito, p?rdida de la visi?n o cualquier otro s?ntoma preocupante.La hidrocodona tendr? tylenol, as? que no tome opal?n otro tylenol hasta que termine con la hidrocodona. Prescriptions: New prednisone 20 mg tablet 40 mg PO DAILY 5 Days Qty: 10 0RF hydrocodone-acetaminophen 5-300 mg tablet 1 tab PO BID PRN (Reason: pain) 3 Days Qty: 8 0RF Rx Instructions: Partial Fill upon patient request. side effect is drowsiness No Action hydrocodone-acetaminophen 5-300 mg tablet 1 tab PO BID PRN (Reason: pain) 3 Days Qty: 10 0RF ondansetron HCl [Zofran] 4 mg tablet 4 mg PO Q6H PRN (Reason: nausea and vomiting) Qty: 14 0RF loperamide [Anti-Diarrheal (loperamide)] 2 mg capsule 2 mg PO Q6H PRN (Reason: loose stool) Qty: 14 0RF donepezil 5 mg tablet 1 tab PO BEDTIME sertraline 100 mg tablet 2 tab PO QAM diltiazem HCl 120 mg capsule,extended release 12 hr 1 cap PO BID montelukast 10 mg tablet 1 tab PO BEDTIME benazepril 10 mg tablet 1 tab PO QAM Eliquis 5 mg tablet 5 mg PO BID Qty: 90 0RF Rx Instructions: take 10 mg bid for 7 days then 5 mg BID lidocaine 4 % adhesive patch,medicated 1 patch topical DAILY PRN (Reason: pain) Qty: 10 0RF Rx Instructions: may leave on for up to 12 hrs atorvastatin 80 mg Tablet 80 mg PO BEDTIME Qty: 30 0RF Interventions: ED Discharge Assessment Last Done: 04/14/22 10:33 Discharge Date/Time: 04/14/22 10:33 Print Language: Fijian
== END 2022-04-14 10:33 | disposition home or self-care (01) ==
PROVIDERS: Emergency Provider Emergency Medicine; PCP Family Medicine
DX: M54.12 Radiculopathy, cervical region (principal); I10 Essential (primary) hypertension; E11.9 Type 2 diabetes mellitus without complications; E78.5 Hyperlipidemia, unspecified; Z86.711 Personal history of pulmonary embolism; Z79.01 Long term (current) use of anticoagulants; Z79.899 Other long term (current) drug therapy; Z79.02 Long term (current) use of antithrombotics/antiplatelets
CPT/HCPCS: 36415; 80048; 80076; 84484; 85025; 93005; 99283

== ENCOUNTER 2022-04-22 07:53 | Emergency (ER) | payer OTHER, SELFPAY ==
--- NOTE | ~2022-04-22 | CT_ITS ---
EXAMINATION: CT CERVICAL SPINE WITHOUT CONTRAST CLINICAL INFORMATION: Neck pain radiating to left upper extremity. COMPARISON: Prior CT imaging exam from 03/26/2021. TECHNIQUE: Noncontrast multidetector CT imaging of cervical spine. Axial images and multiplanar reformatted images are reviewed. This CT examination was performed using dose optimization techniques as appropriate, variously including the following: *Automated exposure control *Adjustment of mA and/or kV according to patient size (this includes techniques or standardized protocols for targeted exams where dose is matched to indication/reason for exam; i.e. extremities or head) *Use of iterative reconstruction technique DLP: 310 mGy-cm FINDINGS: No acute abnormalities. The skull base and craniocervical junction are normal. Chronic degenerative osseous spurring at the atlantodental articulation. The cervical vertebra have well preserved height and alignment. No acute fracture, subluxation or prevertebral soft tissue swelling. There is chronic, multilevel facet osteoarthritis. The facet arthropathy is worst on the right at C3-C4 and on the left, is worst at C2-C3, C3-C4 and C4-C5. At C3-C4, there is chronic mild degenerative loss of disc height, vertebral osteophyte formation and uncovertebral joint hypertrophy resulting in mild right and fizydcpg-bw-vibgsi left neural foraminal stenosis at this level. C4-C5 disc space is maintained. Chronic moderate discovertebral degenerative change and uncovertebral joint hypertrophy at C5-C6 and C6-C7. The posterior disc osteophyte complexes create mild indentation on the ventral surface of the thecal sac at these levels. Moderate bilateral neural foraminal stenosis at C5-C6, and mild bilateral foraminal stenosis at C6-C7. Hemangioma of the T1 vertebral body. No suspicious osseous lesion. No paraspinal soft tissue mass or hematoma. Chronic reticular opacities in the visualized lung apices, unchanged compared to 03/26/2021. A hypodense nodule of the left thyroid lobe measures approximately 1.2 x 1.7 cm; this is stable compared to 03/26/2021. Please refer to findings on thyroid ultrasound exam from 12/03/2021. CT/CT cervical spine wo con IMPRESSION: * No acute findings in the chronically degenerated cervical spine compared to 03/26/2021. No fracture or malalignment. * The posterior disc-osteophyte complexes at C5-C6 and C6-C7 chronically cause mild narrowing of the central spinal canal. The multilevel uncovertebral joint hypertrophy and facet hypertrophy cause varying degrees of chronic bilateral neural foraminal stenosis, as noted above. * A hypodense nodule in the left thyroid lobe is stable compared to 03/26/2021. Please refer to findings on the thyroid ultrasound exam from 12/03/2021.
[2022-04-22 08:27] VITALS: BP 153/72; PULSE 67; RESP 14; TEMP 36.6; O2SAT 97; BMI 22.6
--- NOTE | 2022-04-22 10:09 | ECG_ITS ---
Test Reason : l shoulder pain Blood Pressure : / mmHG Vent. Rate : 056 BPM Atrial Rate : 056 BPM P-R Int : 108 ms QRS Dur : 062 ms QT Int : 434 ms P-R-T Axes : 020 012 043 degrees QTc Int : 418 ms Sinus bradycardia with short WI Otherwise normal ECG When compared with ECG of 14-APR-2022 08:13, WI interval has decreased Referred By: Kori Orozco Electronically Signed By:KORINA JAMES MD
[2022-04-22] MEDS: Acetaminophen 325 MG TABLET 650 MG PO (11:11)
--- NOTE | 2022-04-22 11:14 | ED.GENADULT ---
HPI - General Adult General Chief complaint: General Medical Stated complaint: reaction to medicine, pain in shoulder Time Seen by Provider: 04/22/22 09:47 Source: patient Mode of arrival: ambulatory History of Present Illness HPI narrative: 77-year-old Bangladeshi speaking female with a past medical history of aortic insufficiency, asthma, depression, diabetes, GERD, HLD, HTN, NSTEMI, pancreatitis, PE on Eliquis, presenting to the ED complaining of acute on chronic neck pain > left radiating to head and down LUE. Admits was recently seen in the ED for similar symptoms, prescribed prednisone and opiates without relief. Admits pain worse with movement. Denies known injury, trauma or fall, denies change in symptoms. Denies numbness, tingling, weakness, vision change, CP/SOB Onset (ago): unknown Related Data Home Medications Medication Instructions Recorded Confirmed benazepril 10 mg tablet 1 tab PO QAM 11/20/20 05/11/21 diltiazem HCl 120 mg 1 cap PO BID 11/20/20 05/11/21 capsule,extended release 12 hr donepezil 5 mg tablet 1 tab PO BEDTIME 11/20/20 05/11/21 montelukast 10 mg tablet 1 tab PO BEDTIME 11/20/20 05/11/21 sertraline 100 mg tablet 2 tab PO QAM 11/20/20 05/11/21 Previous Rx's Medication Instructions Recorded loperamide 2 mg capsule 2 mg PO Q6H PRN loose stool #14 10/31/20 (Anti-Diarrheal (loperamide)) caps ondansetron HCl 4 mg tablet 4 mg PO Q6H PRN nausea and 10/31/20 (Zofran) vomiting #14 tabs apixaban 5 mg tablet (Eliquis) 5 mg PO BID #90 tabs 11/22/20 hydrocodone 5 mg-acetaminophen 300 1 tab PO BID PRN pain 3 days #10 11/23/20 mg tablet tabs lidocaine 4 % topical patch 1 patch topical DAILY PRN pain #10 03/26/21 ea atorvastatin 80 mg tablet 80 mg PO BEDTIME #30 tabs 05/12/21 hydrocodone 5 mg-acetaminophen 300 1 tab PO BID PRN pain 3 days #8 04/14/22 mg tablet tabs prednisone 20 mg tablet 40 mg PO DAILY 5 days #10 tabs 04/14/22 acetaminophen 500 mg tablet 500 mg PO Q6H PRN fever or pain 04/22/22 (Tylenol Extra Strength) #14 tabs cyclobenzaprine 5 mg tablet 5 mg PO Q8H PRN pain (scale score 04/22/22 7-10) 5 days #14 tabs lidocaine 5 % topical patch 1 patch topical DAILY PRN pain #30 04/22/22 (Lidoderm) ea Allergies Allergy/AdvReac Type Severity Reaction Status Date / Time oxycodone [OXYCODONE] Allergy Unknown UNKNOWN Verified 02/12/22 16:59 Review of Systems Review of Systems: Constitutional: No Fever, No Chills, No Fatigue, No Malaise ENT/Mouth: No Ear Pain, No Nasal Congestion, No sore throat, No Rhinorrhea, No Swallowing Difficulty Eyes: No Eye Pain, No Swelling, No Redness, No Vision Changes Cardiovascular: No Chest Pain, No SOB, No Edema, No Palpitations Respiratory: No Cough, No Sputum, No Dyspnea Gastrointestinal: No Nausea, No Vomiting, No Diarrhea, No Constipation, No Abdominal pain Genitourinary: No irregular bleeding, No Dysuria, No Urinary Frequency, No Hematuria, No Urinary Incontinence/retention, No Urgency, No Flank Pain Musculoskeletal: + joint pain, No Myalgias, No Joint Swelling Skin: No Skin Lesions, No rash Neuro: No Weakness, No Numbness, No Paresthesias, No Loss of Consciousness, No Dizziness, + Headache Yes all other systems are reviewed and are negative Constitutional: Constitutional: Reports as per HPI Neurologic: Denies Abnormal speech present [facility] Past Medical History Attestation statement: The following information was validated with the patient. Medical History Aortic insufficiency Asthma Depression Diabetes GERD (gastroesophageal reflux disease) High cholesterol Hypertension Multinodular goiter (nontoxic) NSTEMI (non-ST elevated myocardial infarction) Pancreatitis Pulmonary embolism Surgical History No history of previous surgery Family History Family History Father Hypertension Heart disease Mother Hypertension Heart disease Social History Social History Household Members: Family and Other Household Members Other:: daughter is water plant maintenance mechanic Housing: Apartment Do you presently have visiting nurse or other home services: No Alcohol intake: never Patient Tobacco Use Status: Never used Tobacco Second Hand Smoke Exposure: No Advance Directives: Yes Advance Directives Information Provided: No Advance Directives on File: No service: No Current occupational status: unemployed and disabled Physical Exam ED Vital Signs: Vital Signs - 24 hr 04/22/22 08:27 Temperature 97.9 F Pulse Rate 67 Respiratory Rate 14 Blood Pressure 153/72 H Pulse Oximetry 97 Oxygen Delivery Method Room Air BMI result Body Mass Index 22.6 Const General: cooperative, healthy appearing, comfortable and no acute distress Orientation/consciousness: patient oriented x3 Limitations: no limitations HENMT Head: Yes normal to inspection and Yes atraumatic Ears: hearing grossly normal bilaterally, external ears normal and TM's normal bilaterally General nose exam: Normal external nose present Face and sinus: Yes normal facial exam Mouth: Normal oral and palatal mucosa present Throat: Yes posterior oropharynx normal, Yes tonsils normal, Yes uvula midline, No uvula laterally displaced and No uvular edema Eyes General: appearance normal, both eyes and all related structures Pupils: Equal, round and reactive pupils present EOM: EOMs intact bilaterally Neck Other: No midline cervical spinous tenderness to palpation. Left-sided paraspinal tenderness reproducing subjective complaint left trapezius muscle tenderness Neck: Yes normal visual inspection, Yes full ROM, Yes no lymphadenopathy and Yes no meningeal signs Resp Effort & Inspection: normal respiratory effort and no respiratory distress Auscultation: clear to auscultation bilaterally Cardio Rate: regular rate Heart sounds: S1 normal heart sound present and S2 normal heart sound present GI Inspection: Yes normal to inspection Palpation (GI): Soft to palpation, nontender, no guarding and not rigid Back/Spine/Pelvis Other: No midline thoracic/lumbar spinous tenderness/step-off or deformity Skin Rashes: no rashes Wounds: no wounds Neuro General: patient oriented x3, gait normal, tone normal, moves all extremities, no meningeal signs, no focal motor deficits and CN's II-XI intact bilaterally Cranial nerves: Yes CN's II-XII intact bilaterally and Yes Equal, round and reactive pupils present Cognition (Neuro): normal cognition Speech: No Abnormal speech present Gait exam (Neuro): Normal gait present Motor exam (neuro): 5/5 motor strength present throughout Extrem General: Yes normal to inspection Course Course Course Narrative: CT cervical spine wo con IMPRESSION: *? No acute findings in the chronically degenerated cervical spine compared to 03/26/2021. No fracture or malalignment. *? The posterior disc-osteophyte complexes at C5-C6 and C6-C7 chronically cause mild narrowing of the central spinal canal. The multilevel uncovertebral joint hypertrophy and facet hypertrophy cause varying degrees of chronic bilateral neural foraminal stenosis, as noted above. *? A hypodense nodule in the left thyroid lobe is stable compared to 03/26/2021. Please refer to findings on the thyroid ultrasound exam from 12/03/2021. > Results discussed with patient including worrisome signs and symptoms and strict return precautions, and when to return to the emergency department. They verbalized understanding and feel safe for discharge at this time. Medical Decision Making MDM Narrative Medical decision making narrative: 77-year-old Bangladeshi speaking female with a past medical history of aortic insufficiency, asthma, depression, diabetes, GERD, HLD, HTN, NSTEMI, pancreatitis, PE on Eliquis, presenting to the ED complaining of acute on chronic neck pain > left radiating to head and down LUE. On exam vital signs stable, NAD, no midline cervical spinous tenderness, paraspinal tenderness noted, no focal neuro deficits. Pain reproducible on palpation/left arm ROM. Concern for cervical radiculopathy. Lower suspicion for cord compression/ACS or cervical dissection Labs reviewed from 04/14 and unremarkable Plan: EKG, CT cervical spine Medical Records Medical records reviewed: Yes I reviewed the patient's medical records. Lab Data Lab results reviewed: Yes I reviewed the patient's lab results. ECG Data Attestation: I personally reviewed and interpreted this ECG as follows: Prior ECG tracings: available for review Interpretation: EKG sinus bradycardia with short WI, rate 56, QTc 418 Discharge Plan Discharge Clinical Impression: Cervical radiculopathy Patient Disposition: Home, Self-Care Instructions: Cervical Radiculopathy (ED) Additional Instructions: Your CT shows chronic degenerative changes/spinal narrowing. You need to follow-up with a neurosurgeon/specialist. Continue taking previously prescribed medications and home prescribed medications. Flexeril is a muscle relaxer, take at night as it makes you drowsy, do not drive, drink alcohol, or operate machinery while taking it Lidoderm patches are numbing patches, apply to painful area In addition take Tylenol at home If symptoms persist or worsen, pain becomes unbearable, you developed urinary retention or incontinence, or weakness return to the ED Hernandez TC muestra cambios degenerativos cr?nicos/estrechamiento de la columna. Debe realizar un seguimiento con un neurocirujano/especialista. Contin?e tomando los medicamentos recetados anteriormente y los medicamentos recetados en el hogar. Flexeril es un relajante muscular, t?kimberly por la noche ya que te adormece, no conduzcas, bebas alcohol ni operes maquinaria mientras lo yari. Los parches de Lidoderm son parches anest?sicos, se aplican en el ?claude dolorida Adem?s melanie Tylenol en casa Si los s?ntomas persisten o empeoran, el dolor se vuelve insoportable, desarroll? retenci?n urinaria o incontinencia, o debilidad, regrese al servicio de urgencias. Prescriptions: New acetaminophen [Tylenol Extra Strength] 500 mg tablet 500 mg PO Q6H PRN (Reason: fever or pain) Qty: 14 0RF lidocaine [Lidoderm] 5 % adhesive patch,medicated 1 patch topical DAILY MDD remove after 12 hours PRN (Reason: pain) Qty: 30 0RF Rx Instructions: leave on most painful area for up to 12 hrs cyclobenzaprine 5 mg tablet 5 mg PO Q8H PRN (Reason: pain (scale score 7-10)) 5 Days Qty: 14 0RF No Action hydrocodone-acetaminophen 5-300 mg tablet 1 tab PO BID PRN (Reason: pain) 3 Days Qty: 10 0RF ondansetron HCl [Zofran] 4 mg tablet 4 mg PO Q6H PRN (Reason: nausea and vomiting) Qty: 14 0RF loperamide [Anti-Diarrheal (loperamide)] 2 mg capsule 2 mg PO Q6H PRN (Reason: loose stool) Qty: 14 0RF donepezil 5 mg tablet 1 tab PO BEDTIME sertraline 100 mg tablet 2 tab PO QAM diltiazem HCl 120 mg capsule,extended release 12 hr 1 cap PO BID montelukast 10 mg tablet 1 tab PO BEDTIME benazepril 10 mg tablet 1 tab PO QAM Eliquis 5 mg tablet 5 mg PO BID Qty: 90 0RF Rx Instructions: take 10 mg bid for 7 days then 5 mg BID lidocaine 4 % adhesive patch,medicated 1 patch topical DAILY PRN (Reason: pain) Qty: 10 0RF Rx Instructions: may leave on for up to 12 hrs atorvastatin 80 mg Tablet 80 mg PO BEDTIME Qty: 30 0RF prednisone 20 mg tablet 40 mg PO DAILY 5 Days Qty: 10 0RF hydrocodone-acetaminophen 5-300 mg tablet 1 tab PO BID PRN (Reason: pain) 3 Days Qty: 8 0RF Rx Instructions: Partial Fill upon patient request. side effect is drowsiness Referrals: Herminia Urbano MD [Physician] - 1 week Print Language: Bangladeshi
[2022-04-22] MEDS: Cyclobenzaprine HCl 10 MG TABLET PO (12:51)
[2022-04-22] MEDS: Lidocaine 4 % Patch ADH..PATCH 1 PATCH TRANSDERMA (12:51)
== END 2022-04-22 13:00 | disposition home or self-care (01) ==
PROVIDERS: Emergency Provider Emergency Medicine Emergency Medical Services; PCP Family Medicine
DX: M54.12 Radiculopathy, cervical region (principal); M25.512 Pain in left shoulder; R00.1 Bradycardia, unspecified; R51.9 Headache, unspecified; M54.2 Cervicalgia; Z79.4 Long term (current) use of insulin; Z79.899 Other long term (current) drug therapy
CPT/HCPCS: 72125; 93005; 99284

== ENCOUNTER 2022-06-15 14:39 | Outpatient (REF) | payer OTHER, SELFPAY ==
--- NOTE | ~2022-06-15 | MR_ITS ---
EXAMINATION: MR CERVICAL SPINE WITHOUT CONTRAST CLINICAL INFORMATION: 77-year-old with cervical spondylosis. Complaints of neck pain radiating down spine. COMPARISON: 04/22/2022 CT. TECHNIQUE: MRI of the cervical spine was obtained using routine sequences without contrast. FINDINGS: Alignment: Lordotic curvature is maintained. Trace anterolisthesis at C4-C5 is stable from previous CT. There is trace anterolisthesis at C3-C4 on current study. Craniocervical Junction/C1-C2 Articulations: Intact and aligned. Bony productive changes at the anterior atlantodental joint similar to prior CT. Visualized Intracranial Structures: Within normal limits. Vertebral Bodies: Ssqg-pv-hffkosuh chronic loss of height of the posterior aspect of the C5 vertebral body is stable from prior CT. Otherwise vertebral body heights are well-maintained. Disc Spaces and Endplates: Multilevel moderate degrees of intervertebral disc space height loss at C3-C4, C5-C6 and C6-C7, with Schmorl's nodes and spondylosis similar to prior CT. There is disc desiccation throughout the cervical spine. Bone Marrow: No significant marrow-replacing process or bone marrow edema. Type II marrow signal changes along the endplates at C3-C4. There is a 1.2 cm benign vertebral hemangioma within the T1 vertebral body extending into the left pedicle and posterior elements similar to prior CT. C2-C3: No disc herniation or canal stenosis. Mild right and ezunmcik-qq-sknwmd left-sided facet arthropathy is noted with mild right and moderate left-sided neural foraminal stenosis stable in appearance. C3-C4: Broad-based posterior disc osteophyte complex noted, with the moderate flattening the ventral dural sac asymmetric to the left without cord impingement. No significant spinal canal stenosis. There is uncovertebral spurring, left more than right with severe left-sided and pjpjjgkr-wx-[id number] right-sided facet arthropathy, with severe left-sided and moderate right-sided neural foraminal stenosis stable in appearance. C4-C5: No disc herniation or canal stenosis. Uncinate process spurring noted bilaterally with marked left-sided and moderate right-sided facet arthropathy, with moderate bilateral neural foraminal stenosis similar to previous study. C5-C6: Broad-based disc osteophyte complex again noted, with flattening of the ventral dural sac, with mild central canal stenosis. There is uncovertebral spurring bilaterally, with mild right and moderate left-sided facet arthropathy, with severe right-sided and osmonult-mf-cyxegw left-sided neural foraminal stenosis stable in appearance. C6-C7: Broad-based disc protrusion asymmetric to the left with moderate flattening the ventral dural sac without cord impingement or significant canal stenosis. There is uncovertebral spurring bilaterally without significant facet arthrosis. Phdb-sx-xynwrurk right-sided and severe left-sided neural foraminal stenosis stable in appearance. C7-T1: No disc herniation or canal stenosis. Ligament of flavum thickening is noted with mild left-sided facet arthropathy without significant canal or neuroforaminal stenosis. T1-T2: Tiny left paramedian disc protrusion with mild ligamentum flavum thickening without cord impingement or canal stenosis. No significant facet arthrosis or neuroforaminal stenosis. Spinal Cord: The cervical and visualized upper thoracic spinal cord is normal in morphology, caliber and signal intensity throughout, without focal lesion, edema or syrinx. Extracranial Soft Tissues: There is a 1.8 cm left thyroid lobe nodule. See previous thyroid ultrasound of 05/03/2020. MR/MR cervical spine wo con IMPRESSION: 1. Multilevel cervical DDD and spondylosis similar in appearance to the previous CT with trace anterolisthesis at C4-C5 stable in appearance and new trace anterolisthesis at C3-C4. 2. Multilevel posterior disc osteophyte complexes between C3-C4 and C5-C6 inclusive and broad-based disc protrusion at C6-C7, as described above without cord compression. Mild spinal canal stenosis is noted at C5-C6. 3. Multilevel DJD as described above, similar to prior CT with multilevel bilateral bony neural foraminal stenosis as detailed by level above largely unchanged from prior CT.
== END 2022-06-15 14:40 | disposition home or self-care (01) ==
LOC: HO.MRI 14:39
PROVIDERS: Visit Provider Neurological Surgery
DX: M47.812 Spondylosis without myelopathy or radiculopathy, cervical region (principal)
CPT/HCPCS: 72141

== ENCOUNTER 2022-08-06 07:54 | Emergency (ER) | payer OTHER, SELFPAY ==
--- NOTE | ~2022-08-06 | CT_ITS ---
EXAMINATION: CT HEAD WITHOUT CONTRAST CLINICAL INFORMATION: Left-sided headache for 3 days on eliquis COMPARISON: 04/06/2022 TECHNIQUE: Imaging was performed from the skull base to vertex without intravenous administration of contrast. This CT examination was performed using dose optimization techniques as appropriate, variously including the following: *Automated exposure control *Adjustment of mA and/or kV according to patient size (this includes techniques or standardized protocols for targeted exams where dose is matched to indication/reason for exam; i.e. extremities or head) *Use of iterative reconstruction technique Total exam dose length product: 524 mGy-cm FINDINGS: No intra or extra-axial fluid collection, hemorrhage, or mass. No ventriculomegaly. No midline shift or herniation. Basal cisterns are patent. Lechuga-white matter differentiation is maintained. No territorial encephalomalacia. Proportional prominence of the ventricles and sulcal spaces is consistent with mild volume loss. Patchy periventricular and deep white matter hypoattenuation is consistent with mild small vessel ischemic changes. No calvarial fracture or soft tissue abnormality. The mastoid air cells and visualized portions of the paranasal sinuses are well aerated. CT/CT head/brain wo IV con IMPRESSION: No acute intracranial pathology.
[2022-08-06 08:07] VITALS: BP 159/84; PULSE 75; RESP 18; TEMP 36.5; O2SAT 96; BMI 24.2
--- NOTE | 2022-08-06 14:23 | ED_ITS ---
HPI - Headache General Chief Complaint: Headache Stated Complaint: headache Time Seen by Provider: 08/06/22 12:21 Source: patient Mode of arrival: ambulatory Limitations: language barrier ([place]aguan speaking only, bushing and broach operator used) History of Present Illness HPI Narrative: This 77-year-old female who presents emergency department complaining of headache x3 days. Patient points to her frontal area and temporal areas of her head when asked to localize the headache pain. States the pain is a constant throbbing/pulsating pain which waxes and wanes in intensity. The pain is 10/10 at its worst. The patient states that she has had similar headaches in the past and this is not her worst headache that she has had. The pain came on gradually. Patient states that she has associated nausea with no vomiting. She denies weakness. She states that she has poor vision which cannot be corrected and she does not think that her vision is changed with the onset of the headache. She denied fever, chills, rhinorrhea, sore throat, cough, chest pain, shortness of breath. Related Data Home Medications Medication Instructions Recorded Confirmed benazepril 10 mg tablet 1 tab PO QAM 11/20/20 05/11/21 diltiazem HCl 120 mg 1 cap PO BID 11/20/20 05/11/21 capsule,extended release 12 hr donepezil 5 mg tablet 1 tab PO BEDTIME 11/20/20 05/11/21 montelukast 10 mg tablet 1 tab PO BEDTIME 11/20/20 05/11/21 sertraline 100 mg tablet 2 tab PO QAM 11/20/20 05/11/21 Previous Rx's Medication Instructions Recorded loperamide 2 mg capsule 2 mg PO Q6H PRN loose stool #14 10/31/20 (Anti-Diarrheal (loperamide)) caps ondansetron HCl 4 mg tablet 4 mg PO Q6H PRN nausea and 10/31/20 (Zofran) vomiting #14 tabs apixaban 5 mg tablet (Eliquis) 5 mg PO BID #90 tabs 11/22/20 hydrocodone 5 mg-acetaminophen 300 1 tab PO BID PRN pain 3 days #10 11/23/20 mg tablet tabs lidocaine 4 % topical patch 1 patch topical DAILY PRN pain #10 03/26/21 ea atorvastatin 80 mg tablet 80 mg PO BEDTIME #30 tabs 05/12/21 hydrocodone 5 mg-acetaminophen 300 1 tab PO BID PRN pain 3 days #8 04/14/22 mg tablet tabs prednisone 20 mg tablet 40 mg PO DAILY 5 days #10 tabs 04/14/22 acetaminophen 500 mg tablet 500 mg PO Q6H PRN fever or pain 04/22/22 (Tylenol Extra Strength) #14 tabs cyclobenzaprine 5 mg tablet 5 mg PO Q8H PRN pain (scale score 04/22/22 7-10) 5 days #14 tabs lidocaine 5 % topical patch 1 patch topical DAILY PRN pain #30 04/22/22 (Lidoderm) ea metoclopramide HCl 5 mg tablet 5 mg PO Q6H PRN nausea and 08/06/22 (Reglan) vomiting #10 tabs Allergies Allergy/AdvReac Type Severity Reaction Status Date / Time oxycodone [OXYCODONE] Allergy Unknown UNKNOWN Verified 02/12/22 16:59 Review of Systems Review of Systems: Yes all other systems are reviewed and are negative [facility] [place] Past Medical History [facility] [place] Narrative: She denies tobacco, alcohol and drug use. Medical History Aortic insufficiency Asthma Depression Diabetes GERD (gastroesophageal reflux disease) High cholesterol Hypertension Multinodular goiter (nontoxic) NSTEMI (non-ST elevated myocardial infarction) Pancreatitis Pulmonary embolism Surgical History No history of previous surgery Family History Family History Father Hypertension Heart disease Mother Hypertension Heart disease Social History Social History Household Members: Family and Other Household Members Other:: daughter is cigar head stringer Housing: Apartment Do you presently have visiting nurse or other home services: No Alcohol intake: never Patient Tobacco Use Status: Never used Tobacco Second Hand Smoke Exposure: No Advance Directives: Yes Advance Directives Information Provided: Yes Advance Directives on File: No service: No Current occupational status: unemployed and disabled Physical Exam Vital Signs: Vital Signs: Last Vital Signs Temp 97.7 F 08/06/22 08:07 Pulse 71 08/06/22 16:22 Resp 16 08/06/22 16:22 BP 130/75 08/06/22 16:22 Pulse Ox 96 08/06/22 08:07 O2 Del Method 08/06/22 08:07 BMI result Body Mass Index 24.2 Const: General: cooperative and no acute distress Orientation/consciousness: oriented to person and oriented to place Limitations: no limitations HEENT: Head: Yes normal to inspection, Yes normocephalic and Yes atraumatic Ears: external ears normal General nose exam: Normal external nose present Face and sinus: Yes normal facial exam Mouth: Normal oral and palatal mucosa present Throat: Yes posterior oropharynx normal Eyes: General: appearance normal, both eyes and all related structures Pupils: Equal, round and reactive pupils present Neck: Neck: Yes normal visual inspection, Yes no lymphadenopathy, Yes trachea midline and Yes supple Chest: Chest palpation & inspection: normal inspection of the chest and normal palpation of entire chest wall Resp: Effort & Inspection: normal respiratory effort and able to speak in complete sentences Auscultation: clear to auscultation bilaterally Cardio: Rate: regular rate Rhythm: regular rhythm Heart sounds: S1 normal heart sound present, S2 normal heart sound present and no murmurs GI: Inspection: Yes normal to inspection Palpation (GI): Soft to palpation, nontender and no guarding Auscultation: normal bowel sounds : General: Yes no CVA tenderness Back/Spine/Pelvis: Back: no CVA tenderness Skin: General skin exam: no rashes or lesions noted Neuro: General: oriented to person and oriented to place Cranial nerves: Yes CN's II-XII intact bilaterally and Yes Equal, round and reactive pupils present Cognition (Neuro): normal cognition Motor exam (neuro): 5/5 motor strength present throughout Extrem: General: Yes normal to inspection Psych: Appearance: grossly normal Speech and movement: Normal speech and movement present Affect: normal affect Attitude: cooperative Thought process: Normal thought process present Thought content: Normal thought content present Course Course Course Narrative: 77-year-old female who presents emergency department for evaluation of headache x3 days. Patient's physical examination was unremarkable. The patient is on blood thinners. I did order laboratory evaluation and a CT scan of the pat ient's brain. Patient's pain was treated with Reglan 5 mg IV and Benadryl 25 mg IV. 1730: Laboratory evaluation revealed a low white blood count of 3900 which is chronic, patient is not anemic. Coags were normal. CMP and lipase were normal. Radiology evaluation: CT scan of the brain without IV contrast was interpreted as no acute intracranial pathology by the radiologist. Patient did get improvement of her pain with the above treatment. At this time I do not think that the patient has acute bleed, meningitis, stroke, temporal arteritis as the cause for pain. Patient will be treated with the following 3 medications for pain since: Reglan 5 mg orally, Benadryl 25 mg orally and presents CT Tylenol 500 mg orally. She was given printed and verbal instructions discharged home. Medications Administered Discontinued Medications Generic Name Dose Route Start Last Admin Trade Name Freq PRN Reason Stop Dose Admin Diphenhydramine HCl 12.5 mg 08/06/22 14:24 08/06/22 16:27 Diphenhydramine Hcl 50 Mg/Ml Vial IVPUSH 08/06/22 14:25 12.5 mg ONCE STA Administration Metoclopramide HCl 5 mg 08/06/22 16:11 08/06/22 16:27 Metoclopramide Hcl 10 Mg/2 Ml Vial IVPUSH 08/06/22 16:12 5 mg ONCE STA Administration MDM - Headache Lab Data Result diagrams: 08/06/22 14:57 08/06/22 14:57 Labs: Lab Results 08/06/22 08/06/22 08/06/22 Range/Units 14:57 14:57 14:57 WBC 3.9 L (4.8-10.8) X10*3/uL RBC 4.94 (4.20-5.50) X10*6/uL Hgb 14.1 (12.0-16.0) g/dl Hct 44.1 (37.0-47.0) % MCV 89.3 (80.0-98.0) fL MCH 28.5 (27.0-33.0) pg MCHC 32.0 (31.0-35.0) g/dl RDW 12.8 (11.0-16.0) % Plt Count 216 (160-400) X10*3/uL MPV 10.8 (9.4-12.3) fL Immature Gran % (Auto) 0.3 (0.0-0.4) % Neut % (Auto) 43.5 L (45-73) % Lymph % (Auto) 38.7 (20-40) % Woodruff % (Auto) 13.1 H (2-11) % Eos % (Auto) 3.9 (0-4) % Baso % (Auto) 0.5 (0-2) % Lymph # (Auto) 1.5 (1.2-4.9) X10*3/uL Woodruff # (Auto) 0.5 (0.1-1.2) X10*3/uL Eos # (Auto) 0.2 (0.0-0.4) X10*3/uL Baso # (Auto) 0.0 (0.0-0.2) X10*3/uL Abs Immat Gran (auto) 0.01 (0.00-0.03) X10*3/uL Absolute Neuts (auto) 1.7 L (2.0-8.3) x10*3/uL Absolute Nucleated RBC 0.000 (0.0-0.012) X10*3/uL Nucleated RBC % (auto) 0.0 (0.0-0.2) /100WBC PT 13.0 (10.0-13.1) SEC INR 1.1 (0.9-1.1) APTT 36.4 (26.0-36.4) SEC Sodium 142 (135-145) mmol/L Potassium 4.8 (3.3-5.1) mmol/L Chloride 107 (96-108) mmol/L Carbon Dioxide 28 (22-29) mmol/L Anion Gap 12 (12-20) BUN 18 H (9-16) mg/dL Creatinine 0.94 (0.5-1.4) mg/dL Estim Creat Clear Calc 34.3 Estimated GFR 58 Random Glucose 103 (60-115) mg/dL Calcium 9.7 (8.4-10.2) mg/dL Total Bilirubin 0.6 (0.0-1.0) mg/dL AST 22 (5-31) U/L ALT 19 (0-31) U/L Alkaline Phosphatase 140 H (39-117) U/L Total Protein 7.3 (6.5-8.0) g/dL Albumin 4.2 (3.5-5.0) g/dL Lipase 28 (8-78) U/L Discharge Plan Discharge Clinical Impression: Headache, Nausea Patient Disposition: Home, Self-Care Instructions: Acute Headache (ED) Additional Instructions: The CT scan of your brain was normal. Your blood work was unremarkable. I want you to take the following 3 medications together every 6 hours as needed for headache, nausea or vomiting. Reglan (metoclopramide) in 5 mg, 1 pill Benadryl 25 mg, 12 pills Extra-strength Tylenol 500 mg, 1 pills. After you take these medications, lie down in a dark quiet room and try to fall asleep. These medications will make you sleepy, do not drive or work after taking these medications. Follow-up with your doctor in 2 days. Please return to the emergency department if your symptoms get worse or if you develop any symptoms that are concerning to you. Prescriptions: New metoclopramide HCl [Reglan] 5 mg tablet 5 mg PO Q6H PRN (Reason: nausea and vomiting) Qty: 10 0RF No Action hydrocodone-acetaminophen 5-300 mg tablet 1 tab PO BID PRN (Reason: pain) 3 Days Qty: 10 0RF ondansetron HCl [Zofran] 4 mg tablet 4 mg PO Q6H PRN (Reason: nausea and vomiting) Qty: 14 0RF loperamide [Anti-Diarrheal (loperamide)] 2 mg capsule 2 mg PO Q6H PRN (Reason: loose stool) Qty: 14 0RF donepezil 5 mg tablet 1 tab PO BEDTIME sertraline 100 mg tablet 2 tab PO QAM diltiazem HCl 120 mg capsule,extended release 12 hr 1 cap PO BID montelukast 10 mg tablet 1 tab PO BEDTIME benazepril 10 mg tablet 1 tab PO QAM Eliquis 5 mg tablet 5 mg PO BID Qty: 90 0RF Rx Instructions: take 10 mg bid for 7 days then 5 mg BID lidocaine 4 % adhesive patch,medicated 1 patch topical DAILY PRN (Reason: pain) Qty: 10 0RF Rx Instructions: may leave on for up to 12 hrs atorvastatin 80 mg Tablet 80 mg PO BEDTIME Qty: 30 0RF prednisone 20 mg tablet 40 mg PO DAILY 5 Days Qty: 10 0RF hydrocodone-acetaminophen 5-300 mg tablet 1 tab PO BID PRN (Reason: pain) 3 Days Qty: 8 0RF Rx Instructions: Partial Fill upon patient request. side effect is drowsiness acetaminophen [Tylenol Extra Strength] 500 mg tablet 500 mg PO Q6H PRN (Reason: fever or pain) Qty: 14 0RF lidocaine [Lidoderm] 5 % adhesive patch,medicated 1 patch topical DAILY MDD remove after 12 hours PRN (Reason: pain) Qty: 30 0RF Rx Instructions: leave on most painful area for up to 12 hrs cyclobenzaprine 5 mg tablet 5 mg PO Q8H PRN (Reason: pain (scale score 7-10)) 5 Days Qty: 14 0RF Print Language: Nicaraguan
[2022-08-06 15:07] LABS: MANUAL DIFF FLAG NO
[2022-08-06 15:10] LABS: Basophils Percent Auto 0.5 % (0-2); Eosinophils Absolute Auto 0.2 X10*3/uL (0.0-0.4); Eosinophils Percent Auto 3.9 % (0-4); Hematocrit 44.1 % (37.0-47.0); Hemoglobin 14.1 g/dl (12.0-16.0); Imm Gran Abs Auto 0.01 X10*3/uL (0.00-0.03); Imm Gran Pct Auto 0.3 % (0.0-0.4); Lymphocytes Absolute Auto 1.5 X10*3/uL (1.2-4.9); Lymphocytes Percent Auto 38.7 % (20-40); Mean Corpuscular Hemoglobin 28.5 pg (27.0-33.0); Mean Corpuscular Volume 89.3 fL (80.0-98.0); Mean Platelet Volume 10.8 fL (9.4-12.3); Monocytes Absolute Auto 0.5 X10*3/uL (0.1-1.2); Monocytes Percent Auto 13.1 % (2-11); Neutrophils Absolute Auto 1.7 x10*3/uL (2.0-8.3); Neutrophils Percent Auto 43.5 % (45-73); Platelet Count 216 X10*3/uL (160-400); Red Blood Count 4.94 X10*6/uL (4.20-5.50); Red Cell Distribution Width 12.8 % (11.0-16.0); White Blood Count 3.9 X10*3/uL (4.8-10.8)
[2022-08-06 15:15] LABS: INTERNATIONAL NORM RATIO 1.1 (0.9-1.1)
[2022-08-06 15:18] LABS: Partial Thromboplastin Time 36.4 SEC (26.0-36.4)
[2022-08-06 16:02] LABS: Alanine Aminotransferase 19 U/L (0-31); Albumin Level 4.2 g/dL (3.5-5.0); Alkaline Phosphatase 140 U/L (39-117); Anion Gap 12 (12-20); Aspartate Amino Transferase 22 U/L (5-31); Bilirubin Total 0.6 mg/dL (0.0-1.0); Blood Urea Nitrogen 18 mg/dL (9-16); Calcium 9.7 mg/dL (8.4-10.2); Carbon Dioxide 28 mmol/L (22-29); Chloride 107 mmol/L (96-108); Creatinine Clr Calc Pharmacy 34.3; Estimated Glomerular Filt Rate 58; Glucose Random 103 mg/dL (60-115); Lipase 28 U/L (8-78); Potassium 4.8 mmol/L (3.3-5.1); Sodium 142 mmol/L (135-145); Total Protein 7.3 g/dL (6.5-8.0)
[2022-08-06 16:22] VITALS: BP 130/75; PULSE 71; RESP 16
[2022-08-06] MEDS: diphenhydrAMINE HCL 50 MG/ML VIAL 12.5 MG IVPUSH (16:27)
[2022-08-06] MEDS: Metoclopramide HCl 10 MG/2 ML VIAL 5 MG IVPUSH (16:27)
[2022-08-06 17:36] LABS: Appearance Urine Error; Color Urine Yellow; Glucose Urine UA Negative (Negative); Leukocyte Esterase Urine Negative (Negative); Nitrite Urine Negative (Negative); Urine Blood Negative (Negative); Urine Ketones Negative (Negative); Urine Protein Negative (Neg-Trace)
== END 2022-08-06 17:59 | disposition home or self-care (01) ==
PROVIDERS: Emergency Provider Emergency Medicine Emergency Medical Services; PCP Family Medicine
DX: R51.9 Headache, unspecified (principal); R11.0 Nausea; Z86.711 Personal history of pulmonary embolism; Z79.01 Long term (current) use of anticoagulants; Z79.899 Other long term (current) drug therapy
CPT/HCPCS: 36415; 70450; 80053; 81003; 83690; 85025; 85610; 85730; 96374; 96375; 99283; 99284; J1200; J2765

== ENCOUNTER 2022-08-27 13:39 | Inpatient (IN) | payer OTHER, SELFPAY ==
[2022-08-27] VITALS (9 sets, daily range): BP systolic 85–142; BP diastolic 44–78; PULSE 45–71; RESP 12–16; TEMP 36.5–36.9; O2SAT 95–100; BMI 19.5; BMI 19.4
--- NOTE | ~2022-08-27 | XR_ITS ---
EXAMINATION: XR CHEST CLINICAL INFORMATION: Chest pain. COMPARISON: 02/12/2022 chest radiograph. TECHNIQUE: 2 views of the chest were obtained. FINDINGS: No significant abnormality is noted involving the heart, lungs, mediastinum, bony thorax or soft tissues. XR/XR chest 2V IMPRESSION: No acute cardiopulmonary process.
--- NOTE | 2022-08-27 14:03 | ECG_ITS ---
Test Reason : cp Blood Pressure : / mmHG Vent. Rate : 051 BPM Atrial Rate : 051 BPM P-R Int : 136 ms QRS Dur : 072 ms QT Int : 446 ms P-R-T Axes : 053 010 047 degrees QTc Int : 411 ms Sinus bradycardia Otherwise normal ECG When compared with ECG of 22-APR-2022 10:55, No significant change was found Referred By: Yanet Edwards Electronically Signed By:KORINA JAMES MD
[2022-08-27 14:42] LABS: MANUAL DIFF FLAG NO
[2022-08-27] MEDS: ondansetron HCL 4 MG/2 ML VIAL IVPUSH (14:43)
[2022-08-27] MEDS: Acetaminophen 325 MG TABLET 975 MG PO (14:44)
[2022-08-27 14:51] LABS: Basophils Percent Auto 0.4 % (0-2); Eosinophils Percent Auto 0.2 % (0-4); Hematocrit 44.2 % (37.0-47.0); Hemoglobin 14.3 g/dl (12.0-16.0); INTERNATIONAL NORM RATIO 1.1 (0.9-1.1); Imm Gran Abs Auto 0.02 X10*3/uL (0.00-0.03); Imm Gran Pct Auto 0.4 % (0.0-0.4); Lymphocytes Absolute Auto 0.8 X10*3/uL (1.2-4.9); Mean Corpuscular HGB Conc 32.4 g/dl (31.0-35.0); Mean Corpuscular Hemoglobin 28.5 pg (27.0-33.0); Mean Corpuscular Volume 88.2 fL (80.0-98.0); Mean Platelet Volume 10.9 fL (9.4-12.3); Monocytes Absolute Auto 0.3 X10*3/uL (0.1-1.2); Monocytes Percent Auto 6.8 % (2-11); Neutrophils Absolute Auto 3.5 x10*3/uL (2.0-8.3); Neutrophils Percent Auto 75.2 % (45-73); Platelet Count 218 X10*3/uL (160-400); Prothrombin Time 12.5 SEC (10.0-13.1); Red Blood Count 5.01 X10*6/uL (4.20-5.50); Red Cell Distribution Width 12.8 % (11.0-16.0); White Blood Count 4.6 X10*3/uL (4.8-10.8)
[2022-08-27 15:18] LABS: Alanine Aminotransferase 18 U/L (0-31); Albumin Level 4.2 g/dL (3.5-5.0); Alkaline Phosphatase 130 U/L (39-117); Anion Gap 12 (12-20); Aspartate Amino Transferase 28 U/L (5-31); Bilirubin Total 0.5 mg/dL (0.0-1.0); Blood Urea Nitrogen 17 mg/dL (9-16); Calcium 9.8 mg/dL (8.4-10.2); Carbon Dioxide 27 mmol/L (22-29); Chloride 107 mmol/L (96-108); Creatinine Clr Calc Pharmacy 39.2; Estimated Glomerular Filt Rate 55; Glucose Random 128 mg/dL (60-115); Magnesium 2.2 mg/dL (1.6-2.6); Potassium 4.4 mmol/L (3.3-5.1); Sodium 142 mmol/L (135-145)
[2022-08-27] MEDS: Aspirin 81 MG TAB.CHEW 324 MG PO (15:18)
[2022-08-27] MEDS: Morphine Sulfate 4 MG/ML CARTRIDGE IVPUSH (15:19)
--- NOTE | 2022-08-27 15:22 | ED.CHESTPAIN ---
HPI - Chest Pain General Chief Complaint: General Medical Stated Complaint: BODY ACHES Time Seen by Provider: 08/27/22 13:49 Source: patient, family and EMS ( at bedside) Mode of arrival: ambulatory Limitations: language barrier ( Canadian-speaking) History of Present Illness HPI narrative: 77yoF c PMHx of aortic insufficiency, asthma, depression, GERD, DM, HTN, HLD, NSTEMI, pancreatitis, PE on Eliquis who is presenting to the ED via EMS with complaints of midsternal chest pain with associated nausea / vomiting since last night 23:00. She reports that she was sleeping and woke her up out of her sleep. She reports the pain has been persistent since then. she reports she last took her Eliquis around 9pm last night. She denies any dizziness, headaches, changes in vision, jaw pain, paresthesias, shortness of breath, cough, dyspnea on exertion, paresthesias, shoulder pain, rashes, recent falls or trauma, black or bloody emesis, back pain, abdominal pain, flank pain, dysuria, hematuria, abnormal vaginal discharge, black or bloody stools, lower extremity edema or calf tenderness, recent travel or sick contacts or any other symptoms complaints or concerns at this time. MD complaint: chest pain Pertinent past history: asthma and other (HTN, HLD, PE on Eliquis ) Onset (ago): day(s) (Since last night) Timing of current episode: constant Prior episodes: No Onset: during rest Pain location: substernal Pain radiation: back and abdomen Severity: moderate Quality: aching Relieving factors: nothing Exacerbating factors: nothing Associated symptoms: nausea and vomiting Treatment prior to arrival: none Risk Factors Coronary artery disease risk factors: diabetes, hyperlipidemia and hypertension Thoracic aortic dissection risk factors: longstanding hypertension Pulmonary embolism risk factors: history of pulmonary embolism Related Data On Oral Contraceptives: No Home Medications Medication Instructions Recorded Confirmed benazepril 10 mg tablet 1 tab PO QAM 11/20/20 08/27/22 diltiazem HCl 120 mg 1 cap PO BID 11/20/20 08/27/22 capsule,extended release 12 hr donepezil 5 mg tablet 1 tab PO BEDTIME 11/20/20 08/27/22 montelukast 10 mg tablet 1 tab PO BEDTIME 11/20/20 08/27/22 sertraline 100 mg tablet 200 mg PO DAILY 11/20/20 08/27/22 calcium carbonate 600 mg-vitamin 1 tab PO BID 08/27/22 08/27/22 D3 5 mcg (200 unit) tablet fluticasone 500 mcg-salmeterol 50 1 puff inhalation BID 08/27/22 08/27/22 mcg/dose blistr powdr for inhalation fluticasone propionate 50 1 spray intranasal DAILY PRN 08/27/22 08/27/22 mcg/actuation nasal Allergy Symptoms spray,suspension isosorbide mononitrate 60 mg 1 tab PO DAILY 08/27/22 08/27/22 tablet,extended release 24 hr multivitamin-ferrous 1 tab PO DAILY 08/27/22 08/27/22 fumarate-folic acid 18 mg-400 mcg tablet (Certavite-Antioxidant) omeprazole 20 mg capsule,delayed 1 cap PO DAILY 08/27/22 08/27/22 release trazodone 100 mg tablet 100 mg PO BEDTIME PRN Insomnia 08/27/22 08/27/22 trazodone 100 mg tablet 200 mg PO BEDTIME 08/27/22 08/27/22 umeclidinium 62.5 mcg/actuation 1 puff inhalation DAILY 08/27/22 08/27/22 blister powder for inhalation (Incruse Ellipta) Previous Rx's Medication Instructions Recorded apixaban 5 mg tablet (Eliquis) 5 mg PO BID #90 tabs 11/22/20 atorvastatin 80 mg tablet 80 mg PO BEDTIME #30 tabs 05/12/21 acetaminophen 500 mg tablet 500 mg PO Q6H PRN fever or pain 04/22/22 (Tylenol Extra Strength) #14 tabs cyclobenzaprine 5 mg tablet 5 mg PO Q8H PRN pain (scale score 04/22/22 7-10) 5 days #14 tabs metoclopramide HCl 5 mg tablet 5 mg PO Q6H PRN nausea and 08/06/22 (Reglan) vomiting #10 tabs Allergies Allergy/AdvReac Type Severity Reaction Status Date / Time oxycodone [OXYCODONE] Allergy Unknown UNKNOWN Verified 02/12/22 16:59 Review of Systems Review of Systems: Constitutional : No Weight loss, No Fever, No Chills, No Night Sweats, No Fatigue, No Malaise ENT/Mouth : No Hearing loss, No Ear Pain, No Nasal Congestion, No Sinus Pain, No Hoarseness, No sore throat, No Rhinorrhea, No Swallowing Difficulty Eyes: No Eye Pain, No Swelling, No Redness, No Foreign Body, No Discharge, No Vision Changes Cardiovascular : + Chest Pain, No SOB, No Dyspnea on Exertion, No Orthopnea, No Edema, No Palpitations Respiratory : No Cough, No Sputum, No Wheezing, No Smoke Exposure, No Dyspnea Gastrointestinal : + Nausea, + Vomiting, No Diarrhea, No Constipation, + abdominal Pain, No Hematochezia, No Melena Genitourinary : no irregular bleeding, No Dysuria, No Urinary Frequency, No Hematuria, No Urinary Incontinence, No Urgency, No Flank Pain, No Urinary Flow Changes, No Hesitancy Musculoskeletal : No joint pain, No Myalgias, No Joint Swelling Skin : No Skin Lesions, +back pain, No rash Neuro : No Weakness, No Numbness, No Paresthesias, No Loss of Consciousness, No Dizziness, No Headache Psych : No Anxiety/Panic, No Depression, No SI/HI/AH/VH, No Social Issues, Heme/Lymph: No Bruising, No Bleeding,No Lymphadenopathy Endocrine : No Polyuria, No Polydipsia, No Temperature Intolerance Yes all other systems are reviewed and are negative [facility] Past Medical History Attestation statement: The following information was validated with the patient. Source: old records reviewed, obtained from family and nursing notes reviewed Medical History Aortic insufficiency Asthma Depression Diabetes GERD (gastroesophageal reflux disease) High cholesterol Hypertension Multinodular goiter (nontoxic) NSTEMI (non-ST elevated myocardial infarction) Pancreatitis Pulmonary embolism Surgical History No history of previous surgery Family History Family History Father Hypertension Heart disease Mother Hypertension Heart disease Social History Social History Household Members: Family and Other Household Members Other:: daughter is bulk materials handling plant operator Housing: Apartment Do you presently have visiting nurse or other home services: No Alcohol intake: never Patient Tobacco Use Status: Never used Tobacco Second Hand Smoke Exposure: No Advance Directives: Yes Advance Directives Information Provided: Yes Advance Directives on File: No service: No Current occupational status: unemployed and disabled Physical Exam Vital Signs: Vital Signs: Last Vital Signs Temp 98.3 F 08/27/22 16:31 Pulse 71 08/27/22 16:31 Resp 13 08/27/22 16:31 BP 130/78 08/27/22 16:31 Pulse Ox 99 08/27/22 16:31 O2 Del Method 08/27/22 16:31 O2 Flow Rate 2 08/27/22 16:31 BMI result Body Mass Index 19.4 vital signs have been reviewed as normal and appeared to be correct. Blood pressure 140/72. Heart rate normal. Respiration rate normal. Temperature normal. Oxygen saturation normal. Appearance: Alert. Oriented X3. No acute distress. Head: Normal external exam. Normocephalic. Atraumatic. Eyes: PERRLA. EOMI. Conjunctiva and sclera normal. Eyelids normal. ENT: EAC normal. TM's Normal. Pharynx normal. Uvula midline. Moist mucous membranes. No lesions/ulcerations or masses noted on the tongue. Normal voice. No trismus noted. No drooling noted. No muffled voice noted. Neck: Normal inspection. Neck supple. FROM. No adenopathy. Thyroid Normal. No meningeal signs. CVS: Normal heart rate and rhythm. Heart sound normal. Pulses normal throughout. No murmurs/rales/gallops. Respiratory: No respiratory distress. Painless inspiration. Breath sounds normal. No wheezes/rales/rhonchi noted. Chest nontender. No accessory muscle usage noted or decreased air movement noted. Abdomen: Soft and nontender. Nondistended. No guarding. Normal bowel sounds noted. Back: Full range of motion noted. Nontender. Skin: Skin warm and dry. Normal skin color. Normal skin turgor. No rashes/lesions/lacerations noted. Extremities: No lower extremity edema or calf tenderness noted. Extremities exhibit normal range of motion and nontender. Neuro: Oriented X 3. No motor deficit. No sensory deficit. Reflexes normal. Normal steady gait. No focal neuro deficits noted. CN's II-XII intact bilaterally? Vascular: + radial pulses. Normal cap refill. No cyanosis noted to upper extremity nails Course Course Course Narrative: 14pm - 77yoF c PMHx of aortic insufficiency, asthma, depression, GERD, DM, HTN, HLD, NSTEMI, pancreatitis, PE on Eliquis who is presenting to the ED via EMS with complaints of midsternal chest pain with associated nausea / vomiting since last night 23:00. She reports that she was sleeping and woke her up out of her sleep. She reports the pain has been persistent since then. she reports she last took her Eliquis around 9pm last night. Plan: Will obtain labs, EKG, chest x-ray placed on a furniture salesperson re-evaluate. Reevaluation(s) Reevaluation #1: Labs obtained and revealed - White blood cell count 4000. - BUN 17. - Random glucose 128. - Alkaline phosphate 130. - Patient negative for COVID/RSV/flu. - Troponin 417 this is new for the patient she has never had a troponin this type. Otherwise all other labs are within normal limits. CXR WNL. EKG Sinus bradycardia with ventricular rate of [address] abnormalities no acute ischemic change are noted. Similar compared to prior EKG 04/22/2022 Plan: I consulted with Dr. Calle and he recommended giving the patient 324 mg of chewable aspirin and nitro sublingual. Which I did and this completely resolved the patient's pain and due to her elevated troponin and her not taking her Eliquis since 23:00 last night he recommended starting the patient on heparin trending her troponin and admitting the patient. Therefore patient will be admitted at this time. Patient and at bedside understand agree this plan. Time: 16:29 Medications Administered Generic Name Dose Route Start Last Admin Trade Name Freq PRN Reason Stop Dose Admin Heparin Sodium/Sodium Chloride 25,000 unit in 250 mls @ 0 mls/hr 08/27/22 17:00 08/27/22 17:34 Heparin Sodium,Porcine/1/2ns IVCONT 12 units/kg/hr .Q0M ANGEL 6.16 mls/hr Administration Protocol Per Protocol Discontinued Medications Generic Name Dose Route Start Last Admin Trade Name Freq PRN Reason Stop Dose Admin Acetaminophen 975 mg 08/27/22 14:28 08/27/22 14:44 Acetaminophen 325 Mg Tablet PO 08/27/22 14:29 975 mg ONCE ONE Administration Aspirin 324 mg 08/27/22 15:10 08/27/22 15:18 Aspirin 81 Mg Tab.Chew PO 08/27/22 15:11 324 mg ONCE ONE Administration Heparin Sodium (Porcine) 3,100 unit 08/27/22 16:40 08/27/22 17:36 Heparin Sodium,Porcine 5,000 Unit/Ml Vial 60 unit/kg (3100 unit) 08/27/22 16:41 3,100 unit IVPUSH Administration ONCE ONE Sodium Chloride 1,000 mls @ 999 mls/hr 08/27/22 16:00 08/27/22 16:00 Ns IVCONT 08/27/22 17:00 999 mls/hr .Q1H1M ANGEL Administration Morphine Sulfate 4 mg 08/27/22 15:10 08/27/22 15:19 Morphine Sulfate 4 Mg/Ml Cartridge IVPUSH 08/27/22 15:11 4 mg ONCE ONE Administration Protocol Nitroglycerin 0.4 mg 08/27/22 15:26 08/27/22 15:33 Nitroglycerin 0.4 Mg Tab.Subl SUBLINGUAL 08/27/22 15:27 0.4 mg ONCE ONE Administration Ondansetron HCl 4 mg 08/27/22 14:28 08/27/22 14:43 Ondansetron Hcl 4 Mg/2 Ml Vial IVPUSH 08/27/22 14:29 4 mg ONCE ONE Administration Medical Decision Making Medical Decision Making Discussion of management with other physician/healthcare provider/other source (e.g., hospitalist, risk consultant, behavioral health): Discussion w/other physician/healthcare provider Management of the patient was discussed with: Facilities Plant Engineer (Dr. Calle The assistant plant control operator) Lab Attestation: I reviewed the patient's lab results. Independent interpretation of EKG, rhythm strip, radiology study: Independent interp EKG,rhythm strip, radiology study I performed an independent interpretation of the: EKG (EKG Sinus bradycardia with ventricular rate of [address] abnormalities no acute ischemic change are noted. Similar compared to prior EKG 04/22/2022) My interpretation is Discussion of test interpretation with radiology: Discussion of test interpretation with radiology CXR FINDINGS: No significant abnormality is noted involving the heart, lungs, mediastinum, bony thorax or soft tissues. XR/XR chest 2V IMPRESSION: No acute cardiopulmonary process. Independent historian (e.g., spouse, EMS, friend): Independent historian (e.g., spouse, EMS, friend) Clinical information obtained from an independent historian. History obtained from or confirmed by: Spouse Chronic conditions affecting care (e.g., diabetes, HTN): Chronic conditions affecting care (e.g., diabetes, HTN) Patient?s care impacted by: Diabetes and Hypertension Critical Care Time Critical Care Time Critical Care Time: Yes Total Critical Care Time: 60 Attestation: I personally attest to this time spent taking care of the patient Discharge Plan Discharge Clinical Impression: Acute non-ST elevation myocardial infarction (NSTEMI) Patient Disposition: Admitted As Inpatient
[2022-08-27] MEDS: Nitroglycerin 0.4 MG TAB.SUBL SUBLINGUAL (15:33)
[2022-08-27 15:45] LABS: Influenza A PCR NEGATIVE (Negative); Influenza B PCR NEGATIVE (Negative); Resp Syncy Virus RNA Qual PCR NEGATIVE (Negative); SARS COV2 PCR INHOUSE NEGATIVE (Negative)
[2022-08-27] MEDS: 0.9 % Sodium Chloride 1,000 ML 999 ML IVCONT (16:00)
--- NOTE | 2022-08-27 16:01 | PC.NURSE ---
iv fluids infusing w/o apparent incident
[2022-08-27 16:25] LABS: Partial Thromboplastin Time 33.4 SEC (26.0-36.4)
--- NOTE | 2022-08-27 16:41 | PC.NURSE ---
Addendum entered by Kiley Lanza RN 08/27/22 18:44: report given to DINORAH Burns Original Note: Report received from DINORAH Plasencia pt is alert and oriented report sided chest pain 04/29 pt on continuos cardiac monitoring
[2022-08-27] MEDS: Heparin Sodium,Porcine/1/2NS 25,000 UNIT/250 ML IV.SOLN 6.16 UNIT IVCONT (17:34)
[2022-08-27] MEDS: Heparin Sodium,Porcine 5,000 UNIT/ML VIAL 3100 UNIT IVPUSH (17:36)
--- NOTE | 2022-08-27 17:36 | PHA.MEDREC ---
Pharmacy Consult ? Medication Reconciliation Pharmacy has completed the medication reconciliation. Patient's family confirmed medications. Were not sure off all the names, so I received a list from [facility]. Family confirmed Inahlers and prn medications. Dahlia Pedraza, RonaldD
--- NOTE | 2022-08-27 17:47 | P.HPHOSP_ITS ---
History of Present Illness Date of Service: 08/27/22 Attending physician on admission: Nolberto Oliver Chief Complaint: chest pressure This history was taken in [place] from the patient. 77yo F with HTN, HLD, prior NSTEMI, hx PE on apixaban, and asthma presenting with L-sided chest pressure that woke her from sleep at 23:00 last night. Non- radiating and non-exertional. She subsequently had shortness of breath and nausea and vomited all night. Pain has improved since then. No cough. No leg sweling. No palpitations. No lightheadedness. In the ED, hs-Tn-I was 417. EKG showed sinus bradycardia with no ischemic changes. She was given nitroglycerin and aspirin and her pain has resolved. She was started on heparin IV infusion. Review of Systems Review of Systems: Yes all other systems are reviewed and are negative [facility] Medical History Aortic insufficiency Asthma Depression Diabetes GERD (gastroesophageal reflux disease) High cholesterol Hypertension Multinodular goiter (nontoxic) NSTEMI (non-ST elevated myocardial infarction) Pancreatitis Pulmonary embolism Family History Father Hypertension Heart disease Mother Hypertension Heart disease Surgical History No history of previous surgery Social History Household Members: Family and Other Household Members Other:: daughter is manager continuous improvement Housing: Apartment Do you presently have visiting nurse or other home services: No Alcohol intake: never Patient Tobacco Use Status: Never used Tobacco Second Hand Smoke Exposure: No Advance Directives: Yes Advance Directives Information Provided: Yes Advance Directives on File: No service: No Current occupational status: unemployed and disabled Meds Allergies Allergy/AdvReac Type Severity Reaction Status Date / Time oxycodone [OXYCODONE] Allergy Unknown UNKNOWN Verified 02/12/22 16:59 Active Medications: Current Medications Acetaminophen (Acetaminophen 325 Mg Tablet) 650 mg PO Q6H PRN PRN Reason: Pain, Mild (Pain Scale 1-3) Aspirin (Aspirin 81 Mg Tab.Chew) 81 mg PO DAILY ANGEL Cyclobenzaprine HCl (Cyclobenzaprine Hcl 5 Mg Tablet) 5 mg PO Q8H PRN PRN Reason: pain (scale score 7-10) Fluticasone Propionate (Fluticasone Propionate Nasal 16 Gm Zoe) 1 spray NOSTRIL-B DAILY PRN PRN Reason: Allergy Symptoms Heparin Sodium (Porcine) (Heparin Sodium,Porcine 5,000 Unit/Ml Vial) 2,100 unit 40 unit/kg (2100 unit) IVPUSH PROTOCOL BOLUS PRN; Protocol PRN Reason: 40 unit/kg - Heparin Protocol Heparin Sodium (Porcine) (Heparin Sodium,Porcine 5,000 Unit/Ml Vial) 4,100 unit 80 unit/kg (4100 unit) IVPUSH PROTOCOL BOLUS PRN; Protocol PRN Reason: 80 unit/kg - Heparin Protocol Heparin Sodium/Sodium Chloride (Heparin Sodium,Porcine/1/2ns) 25,000 unit in 250 mls @ 0 mls/hr IVCONT .Q0M ANGEL; Protocol Last Admin: 08/27/22 17:34 Dose: 12 units/kg/hr, 6.16 mls/hr Isosorbide Mononitrate (Isosorbide Mononitrate 60 Mg Tab.Er.24h) 60 mg PO DAILY [facility]; Protocol Metoclopramide HCl (Metoclopramide Hcl 5 Mg Tablet) 5 mg PO Q6H PRN PRN Reason: nausea and vomiting Morphine Sulfate (Morphine Sulfate 4 Mg/Ml Cartridge) 2 mg IVPUSH Q4H PRN; Protocol PRN Reason: Pain, Severe (Pain Scale 7-10) Multivitamins/Vitamin C (Multivitamin Tablet) 1 tab PO DAILY [facility] Nitroglycerin (Nitroglycerin 0.4 Mg Tab.Subl) 0.4 mg SUBLINGUAL Q5MX3 PRN PRN Reason: Chest Pain Non-Formulary Medication (Calcium Carbonate-Vitamin D3) 1 tab PO BID [facility] Non-Formulary Medication (Fluticasone Propion-Salmeterol) 1 puff INHALE BID [facility] Omeprazole (Omeprazole 20 Mg Capsule.Dr) 20 mg PO DAILY [facility] Ondansetron HCl (Ondansetron Hcl 4 Mg/2 Ml Vial) 4 mg IVPUSH Q8H PRN PRN Reason: Nausea and Vomiting Sodium Chloride (0.9 % Sodium Chloride Flush 3 Ml Syringe) 3 ml IVFLUSH QSHIFT [facility] Home Medications Medication Instructions Recorded Confirmed Last Taken Type benazepril 10 mg tablet 1 tab PO QAM 11/20/20 08/27/22 08/27/22 History diltiazem HCl 120 mg 1 cap PO BID 11/20/20 08/27/22 08/27/22 History capsule,extended release 12 hr donepezil 5 mg tablet 1 tab PO BEDTIME 11/20/20 08/27/22 08/27/22 History montelukast 10 mg tablet 1 tab PO BEDTIME 11/20/20 08/27/22 08/26/22 History sertraline 100 mg tablet 200 mg PO DAILY 11/20/20 08/27/22 08/27/22 History calcium carbonate 600 mg-vitamin 1 tab PO BID 08/27/22 08/27/22 08/27/22 History D3 5 mcg (200 unit) tablet fluticasone 500 mcg-salmeterol 50 1 puff inhalation BID 08/27/22 08/27/22 08/27/22 History mcg/dose blistr powdr for inhalation fluticasone propionate 50 1 spray intranasal DAILY PRN 08/27/22 08/27/22 Unknown History mcg/actuation nasal Allergy Symptoms spray,suspension isosorbide mononitrate 60 mg 1 tab PO DAILY 08/27/22 08/27/22 08/27/22 History tablet,extended release 24 hr multivitamin-ferrous 1 tab PO DAILY 08/27/22 08/27/22 08/27/22 History fumarate-folic acid 18 mg-400 mcg tablet (Certavite-Antioxidant) omeprazole 20 mg capsule,delayed 1 cap PO DAILY 08/27/22 08/27/22 08/27/22 History release trazodone 100 mg tablet 100 mg PO BEDTIME PRN Insomnia 08/27/22 08/27/22 08/27/22 History trazodone 100 mg tablet 200 mg PO BEDTIME 08/27/22 08/27/22 08/26/22 History umeclidinium 62.5 mcg/actuation 1 puff inhalation DAILY 08/27/22 08/27/22 08/27/22 History blister powder for inhalation (Incruse Ellipta) Physical Exam Vital Signs and Narrative: Vital Signs: Last Vital Signs Temp 98.3 F 08/27/22 16:31 Pulse 71 12/08/22 16:31 Resp 13 08/27/22 16:31 BP 130/78 08/27/22 16:31 Pulse Ox 99 08/27/22 16:31 O2 Del Method 08/27/22 16:31 O2 Flow Rate 2 08/27/22 16:31 BMI result Body Mass Index 19.4 Results Labs CBC and Chem 7: 08/27/22 14:36 08/27/22 14:54 Labs: Laboratory Results - last 24 hr 08/27/22 08/27/22 08/27/22 14:36 14:36 14:36 MCV 88.2 MCH 28.5 MCHC 32.4 RDW 12.8 Plt Count 218 MPV 10.9 Immature Gran % (Auto) 0.4 Neut % (Auto) 75.2 H Lymph % (Auto) 17.0 L Carson % (Auto) 6.8 Eos % (Auto) 0.2 Baso % (Auto) 0.4 Lymph # (Auto) 0.8 L Carson # (Auto) 0.3 Eos # (Auto) 0.0 Baso # (Auto) 0.0 Abs Immat Gran (auto) 0.02 Absolute Neuts (auto) 3.5 Absolute Nucleated RBC 0.000 Nucleated RBC % (auto) 0.0 PT 12.5 INR 1.1 APTT 33.4 Anion Gap Estim Creat Clear Calc Estimated GFR Random Glucose Calcium Magnesium Total Bilirubin AST ALT Alkaline Phosphatase Troponin I High Sens 417.0 H* Total Protein Albumin Influenza Type A (PCR) Influenza Type B (PCR) RSV RNA Qual (PCR) SARS-CoV-2 RNA (RT-PCR) 08/27/22 08/27/22 14:49 14:54 MCV MCH MCHC RDW Plt Count MPV Immature Gran % (Auto) Neut % (Auto) Lymph % (Auto) Carson % (Auto) Eos % (Auto) Baso % (Auto) Lymph # (Auto) Carson # (Auto) Eos # (Auto) Baso # (Auto) Abs Immat Gran (auto) Absolute Neuts (auto) Absolute Nucleated RBC Nucleated RBC % (auto) PT INR APTT Anion Gap 12 Estim Creat Clear Calc 39.2 Estimated GFR 55 Random Glucose 128 H Calcium 9.8 Magnesium 2.2 Total Bilirubin 0.5 AST 28 ALT 18 Alkaline Phosphatase 130 H Troponin I High Sens Total Protein 7.0 Albumin 4.2 Influenza Type A (PCR) NEGATIVE Influenza Type B (PCR) NEGATIVE RSV RNA Qual (PCR) NEGATIVE SARS-CoV-2 RNA (RT-PCR) NEGATIVE Imaging Radiologist's Impressions: Impressions Chest X-Ray 08/27/22 15:11 IMPRESSION: No acute cardiopulmonary process. Assessment and Plan (1) Acute non-ST elevation myocardial infarction (NSTEMI): Status: Acute Plan 77yo F with HTN, HLD, prior NSTEMI, hx PE on apixaban, and asthma presenting with L-sided chest pressure that woke her from sleep at 23:00 last night. Found to have elevated troponin, likely NSTEMI # NSTEMI - admit to IMC, telemetry, give ASA + NTG, metoprolol to replace diltiazem, c ontinue atorvastatin, IV heparin infusion, Cardiology consultation, TTE # HTN - continue CATIA inhibitor; change diltiazem to metoprolol # asthma, not in acute exacerbation - continue ICS/LABA + LAMA inhalers # mood disorder - continue sertraline + trazodone # VTE prophylaxis: heparin infusion # code status: full code I anticipate that the patient will stay at least 2 midnights as an inpatient in the hospital due to the above reasons. It is neither reasonable nor safe to care for them in a less acute setting. Quality Stroke Does the patient have a stroke diagnosis?: No VTE Prior VTE?: No VTE Risk Level:: Medical - moderate - high VTE Device Contraindication: N/A - Device Ordered VTE Drug Contraindication: N/A - Med Ordered
[2022-08-27] MEDS: Atorvastatin Calcium 80 MG TABLET PO (20:58)
[2022-08-27] MEDS: Calcium + Vitamin D 250 MG TABLET 500 MG PO (20:58)
[2022-08-27] MEDS: traZODone HCL 100 MG TABLET 200 MG PO (20:58)
[2022-08-27] MEDS: Montelukast Sodium 10 MG TABLET PO (20:59)
--- NOTE | 2022-08-27 21:02 | PC.NURSE ---
Metoprolol held. HR at 52; unable to administer med when HR is below 60.
--- NOTE | 2022-08-27 22:46 | MHC.CM.PN ---
IMM 08/27. Met with patient with medical staff specialist, as pt is Welsh speaking. Read IMM to pt as she is visually impaired. Pt signs with X. Lives w . Uses cane,walker and W/C. Has CCA. Daughter/HCP Carmella is her FORGING ROLL OPERATOR. HCP at home per patient. [place]laa x4. D/C plan: home with existing FORGING ROLL OPERATOR services. Family will transport. CM asked pt if she would like CM to call and review IMM with her daughter. Pt states she will give it to her daughter and that her daughter is sleeping. States daughter will be in in the morning. CM to follow for d/c needs.
--- NOTE | 2022-08-28 | ECG_ITS ---
Test Reason : nstemi Blood Pressure : / mmHG Vent. Rate : 061 BPM Atrial Rate : 061 BPM P-R Int : 134 ms QRS Dur : 070 ms QT Int : 422 ms P-R-T Axes : 065 003 -49 degrees QTc Int : 424 ms Normal sinus rhythm Nonspecific T wave abnormality Abnormal ECG When compared with ECG of 27-AUG-2022 14:09, Non-specific change in ST segment in Inferior leads T wave inversion now evident in Inferior leads Nonspecific T wave abnormality, worse in Anterolateral leads Referred By: Nolberto Oliver Electronically Signed By:KORINA JAMES MD
[2022-08-28 00:12] LABS: PTT Heparin Drip > 200.0 SEC (53-77.9)
--- NOTE | 2022-08-28 01:48 | PC.NURSE ---
Patient sleeping. No apparent distress.
[2022-08-28 02:03] LABS: PTT Heparin Drip 96.2 SEC (53-77.9)
[2022-08-28 03:40] LABS: PTT Heparin Drip 40.7 SEC (53-77.9)
[2022-08-28 05:02] VITALS: BP 114/59; PULSE 55; RESP 16; O2SAT 99
[2022-08-28] MEDS: Omeprazole 20 MG CAPSULE.DR PO (05:57)
[2022-08-28] MEDS: Acetaminophen 325 MG TABLET 650 MG PO (05:59)
--- NOTE | 2022-08-28 06:01 | PC.NURSE ---
Administered omeprazole per MAR. PRN tylenol administered d/t patient stating she had RUQ abdominal pain.
--- NOTE | 2022-08-28 06:22 | PC.NURSE ---
Pt up to bedside commode and back resting in bed comfortably.
--- NOTE | 2022-08-28 07:00 | CA_ITS ---
Transthoracic Echocardiogram Patient (Last, First, Middle): Edilma Méndez, Gender: Female Date of : 1945 Age: 77 Procedure Date: 08/28/2022 Procedure Type: Transthoracic Echocardiogram Location: [facility] [place] [facility] [place] Height: 160.02 cm Weight: 51.26 kg BSA: 1.52 m2 Heart Rate: 67 bpm BP: 114 / 59 mmHg Statistical Geneticist: Referring MD: Nolberto Oliver MD Head Of Human Resources: Attila Calle MD Symptoms: nstemi Study Quality: Adequate w contrast ECG Rhythm: Sinus Conclusions: - 1. [id number] LV systolic dysfunction with regional wall motion abnormality suggestive underlying coronary artery disease with impaired relaxation filling pattern 2. Trace aortic regurgitation 3. Normal RV systolic pressure 4. No pericardial effusion Findings Procedure Information Contrast agent, definity, is being given per protocol without apparent complications. Left Ventricle Normal left ventricular cavity size. There is normal left ventricular wall thickness. The left ventricular systolic function is mild to moderately decreased. The visually estimated ejection fraction is between 40-45%. Spectral Doppler is indicative of an impaired relaxation filling pattern. E/E prime ratio is between 8 and 15 consistent with indeterminate filling pressures. Wall Motion Rest Echo Findings The apical anterior, basal inferior, mid inferior, and mid inferoseptal segments are hypokinetic. The apical septum is akinetic. The apex segment is dyskinetic. All other scored wall segments showed normal motion. Right Ventricle Normal right ventricular cavity size and systolic function. Atria The left atrium is normal in size. Interatrial shunt cannot be excluded. The right atrium is normal in size. Aortic Valve The aortic valve structure and function is likely normal. There is no aortic valve stenosis. There is trace (trivial) aortic valve regurgitation. Mitral Valve There is mild anterior and posterior mitral leaflet thickening. There is trace mitral valve regurgitation. There is no mitral valve stenosis. Pulmonic Valve The pulmonic valve was not well visualized. Tricuspid Valve Likely normal tricuspid valve structure and function. There is trace tricuspid valve regurgitation. The right ventricular systolic pressure is normal. The right ventricular systolic pressure is 24 mmHg. Normal right atrial pressure. There is no evidence of pulmonary hypertension. Great Vessels All visible segments of the aorta are normal in size. The pulmonary artery was not well visualized. Venous The inferior vena cava is normal in size and collapses greater than 50% with inspiration. Pericardium/Pleural There is no evidence of pericardial effusion. Prior Study Comparison Changes noted compared to prior study dated: 11/21/2020. LV systolic function is reduced with wall motion abnormality Measurements 2D Linear Measurements IVSd: 0.82 0.6-0.9/0.6-1.0 cm LVIDd: 3.95 3.9-5.3/4.2-5.9 cm LVIDd Index: 2.60 2.4-3.2/2.2-3.1 cm/m2 LVIDs: 2.58 2.0-3.6 cm LVPWd: 0.92 0.7-1.1 cm LA Diam: 3.10 2.7-3.8/3.0-4.0 cm LAIDs Index: 2.04 1.5-2.3 cm/m2 LV Mass: 126.49 67-162/88-224 g LV Mass Index: 83.21 43-95/49-115 g/m2 LVOT Diam: 2.00 3.0+(-)1.3 cm 2D Systolic Function EF 4C: 30.90 >55% EF 2C: 44.50 >55% Mitral Valve MV Pk E: 0.51 MV PK A: 0.79 MV Decel Time: 185.00 E/A: 0.60 E'Medial: 4.24 E/E' Med: 12.00 PHT: 54.00 MVA PHT: 4.07 Decel [place]: 2.76 Aortic Valve AoV Pk Sebas: 1.48 AoV Mn Sebas: 0.90 AoV VTI: 0.35 AoV Pk Grad: 9.00 Aov Mn Grad: 4.00 JUDY Cont.VTI: 2.08 LVOT LVOT Pk Sebas: 0.99 LVOT Mn Sebas: 0.57 LVOT VTI: 0.23 LVOT Pk Grad: 4.00 LVOT Mn Grad: 2.00 LVOT Diam: 2.00 LVOT Area: 3.14 Diastolic Function MV Pk E: 0.51 MV Pk A: 0.79 E/A: 0.60 E'Medial: 4.24 E/E' Med: 12.00 Tricuspid Valve TR Pk Sebas: 2.31 TR Pk Grad: 21.00 RA Press: 3.00 RVSP: 24.00 Great Vessels Aorta Sinus of Valsalva: 2.70 2.0-3.5 cm Ao Asc: 3.30 2.1-3.4 cm Pulmonary Valve PV Pk Sebas: 0.95 Peak PV Grad: 4.00 Updated in Other Vendor System with Status of Final Attila Calle MD electronically signed on 08/28/2022 1:12:35 PM with status of Final
[2022-08-28 07:02] LABS: Hematocrit 43.7 % (37.0-47.0); Hemoglobin 13.5 g/dl (12.0-16.0); Mean Corpuscular HGB Conc 30.9 g/dl (31.0-35.0); Mean Corpuscular Hemoglobin 28.4 pg (27.0-33.0); Mean Corpuscular Volume 91.8 fL (80.0-98.0); Mean Platelet Volume 11.6 fL (9.4-12.3); Platelet Count 192 X10*3/uL (160-400); Red Blood Count 4.76 X10*6/uL (4.20-5.50); Red Cell Distribution Width 13.1 % (11.0-16.0); White Blood Count 4.7 X10*3/uL (4.8-10.8)
[2022-08-28 07:11] LABS: Prothrombin Time 11.9 SEC (10.0-13.1)
--- NOTE | 2022-08-28 07:29 | P.CDIC_ITS ---
CDI Concurrent Query Documentation Clarification: PHYSICIAN'S DOCUMENTATION REQUEST Date of Query: 08/28/22729 Patient Name: Edilma Méndez Admit Date: 08/27/22 Dear Doctor, Please review the following and provide your response in the progress notes. Risk Factors/Clinical Indicators/Treatments per MD progress note 08/27/22: asthma, not in acute exacerbation - continue ICS/LABA + LAMA inhalers Based on the above, please clarify in the Progress Notes further specificity regarding the type and acuity of the asthma: Type: * Mild intermittent - less than 2x/week * Mild persistent - more than 2x/week but not daily * Moderate persistent - daily and may restrict physical activity * Severe persistent - throughout the day with frequent attacks, limiting activities * Exercise induced * Chronic obstructive asthma and indicate if with acute lower respiratory infection * Asthma with underlying COPD and indicate if with acute lower respiratory infection * Other ? please specify * Unable to determine Use of terms such as suspected, likely, concern for, or probable (associated with a specific diagnosis that is being evaluated, monitored, or treated as if it exists) are acceptable and can be coded in the inpatient setting, when documented at the time of discharge. Thank you, Garima Rodriguez [insert CDI's credentials] Extension: [4-digit phone extension] Please use your independent medical judgment in providing your response. THIS QUERY IS PART OF THE PERMANENT MEDICAL RECORD Provider Response: Other Other Diagnosis: Unable to determine
[2022-08-28 07:53] VITALS: BP 114/52; PULSE 71; RESP 14; TEMP 36.6; O2SAT 97
[2022-08-28 07:56] LABS: Cholesterol 125 mg/dL; Estimated Average Glucose 123 mg/dL; HDL Cholesterol 57 mg/dL; Hemoglobin A1c % 5.9 %; LDL Cholesterol Calculated 56 mg/dl; Triglycerides 60 mg/dL
[2022-08-28 08:30] LABS: Troponin-I High Sensitivity > 3600.0 ng/L (<3.5-17.0)
[2022-08-28] MEDS: Calcium + Vitamin D 250 MG TABLET 500 MG PO (09:01)
[2022-08-28] MEDS: Multivitamin TABLET 1 TAB PO (09:01)
[2022-08-28] MEDS: Aspirin 81 MG TAB.CHEW PO (09:03)
[2022-08-28] MEDS: lisinopriL 10 MG TABLET PO (09:04)
[2022-08-28] MEDS: Sertraline HCL 100 MG TABLET 200 MG PO (09:05)
[2022-08-28] MEDS: Isosorbide Mononitrate 60 MG TAB.ER.24H PO (09:06)
[2022-08-28 09:09] VITALS: BP 126/60; PULSE 56; RESP 13; O2SAT 98
--- NOTE | 2022-08-28 10:17 | P.CONCA_ITS ---
History of Present Illness History of Present Illness Date of Service: 08/28/22 Requesting physician: Nolberto Oliver Consult reason: other (NSTEMI) Chief complaint: nstemi Narrative: I was consulted to see Edilma in cardiology consultation today for acute coronary syndrome. History was obtained with help of tableau architect at bedside. She is a 77-year-old woman with prior history of diabetes, however she says she is currently not on medication, hypertension, hyperlipidemia generally in good shape as per her. She says she has had prior cardiac catheterization although she is not a very good historian not able to give any details. She came to the hospital because 23:00 the night before she started developing retrosternal chest pressure/squeezing sensation associated with vomiting. She came to the hospital yesterday. Initial troponin was in the 400 range. Subsequently she was given sublingual nitroglycerin along with morphine and symptoms resolved completely. Initial EKG did not show any significant ischemic changes. Subse quent EKG now shows some T-wave inversion in inferior leads Review of Systems Constitutional: Constitutional: Reports no additional constitutional complaints Eyes: Eyes: Reports no additional eye complaints Cardiovascular: Cardiovascular: Reports chest pain at rest, Denies leg edema, Denies lightheadedness, Denies Loss of Consciousness, Denies palpitations and Denies dyspnea Respiratory: Respiratory: Reports no additional respiratory complaints and Denies dyspnea Gastrointestinal: Gastrointestinal: Reports vomiting Genitourinary: Genitourinary: Reports no additional female genitourinary complaints Musculoskeletal: Musculoskeletal: Reports no additional musculoskeletal complaints Integumentary/Breasts: Skin/Breast: Reports system reviewed and no additional complaints, except as docu Neurologic: Reports system reviewed and no additional complaints, except as documented Psychiatric: Psychiatric: Reports no additional psychiatric complaints Endocrine: Endocrine: Denies palpitations Hematologic/Lymphatic: Hematologic/Lymphatic: Reports no additional hematologic/lymphatic complaints Allergic/Immunologic: Allergic/Immunologic: Reports no additional allergic/imm unologic complaints [facility] Past Medical History Medical History Aortic insufficiency Asthma Depression Diabetes GERD (gastroesophageal reflux disease) High cholesterol Hypertension Multinodular goiter (nontoxic) NSTEMI (non-ST elevated myocardial infarction) Pancreatitis Pulmonary embolism Family History Family History Father Hypertension Heart disease Mother Hypertension Heart disease Surgical History Surgical History No history of previous surgery Social History Social History Household Members: Family and Other Household Members Other:: daughter is senior data quality analyst Housing: Apartment Do you presently have visiting nurse or other home services: No Alcohol intake: never Patient Tobacco Use Status: Never used Tobacco Second Hand Smoke Exposure: No service: No Current occupational status: unemployed and disabled Meds Allergies Allergy/AdvReac Type Severity Reaction Status Date / Time oxycodone [OXYCODONE] Allergy Unknown UNKNOWN Verified 02/12/22 16:59 Active Medications: Current Medications Acetaminophen (Acetaminophen 325 Mg Tablet) 650 mg PO Q6H PRN PRN Reason: Pain, Mild (Pain Scale 1-3) Last Admin: 08/28/22 05:59 Dose: 650 mg Aspirin (Aspirin 81 Mg Tab.Chew) 81 mg PO DAILY [facility] Last Admin: 08/28/22 09:03 Dose: 81 mg Atorvastatin Calcium (Atorvastatin Calcium 80 Mg Tablet) 80 mg PO BEDTIME [facility] Last Admin: 08/27/22 20:58 Dose: 80 mg Calcium Carbonate/Cholecalciferol (Calcium + Vitamin D 250 Mg Tablet) 500 mg PO BID [facility] Last Admin: 08/28/22 09:01 Dose: 500 mg Cyclobenzaprine HCl (Cyclobenzaprine Hcl 5 Mg Tablet) 5 mg PO Q8H PRN PRN Reason: pain (scale score 7-10) Fluticasone Propionate (Fluticasone Propionate Nasal [address] [place]) 1 spray NOSTRIL-B DAILY PRN PRN Reason: Allergy Symptoms Fluticasone/Vilanterol (Fluticasone/Vilanterol 200/25 Blst.W.Dev) 1 puff INHALE RDAILY [facility] Last Admin: 08/28/22 09:03 Dose: Not Given Heparin Sodium (Porcine) (Heparin Sodium,Porcine 5,000 Unit/Ml Vial) 2,100 unit 40 unit/kg (2100 unit) IVPUSH PROTOCOL BOLUS PRN; Protocol PRN Reason: 40 unit/kg - Heparin Protocol Heparin Sodium (Porcine) (Heparin Sodium,Porcine 5,000 Unit/Ml Vial) 4,100 unit 80 unit/kg (4100 unit) IVPUSH PROTOCOL BOLUS PRN; Protocol PRN Reason: 80 unit/kg - Heparin Protocol Heparin Sodium/Sodium Chloride (Heparin Sodium,Porcine/1/2ns) 25,000 unit in 250 mls @ 0 mls/hr IVCONT .Q0M [facility]; Protocol Last Titration: 08/28/22 04:19 Dose: 8 units/kg/hr, 4.1 mls/hr Isosorbide Mononitrate (Isosorbide Mononitrate 60 Mg Tab.Er.24h) 60 mg PO DAILY [facility]; Protocol Last Admin: 08/28/22 09:06 Dose: 60 mg Lisinopril (Lisinopril 10 Mg Tablet) 10 mg PO DAILY [facility] Last Admin: 08/28/22 09:04 Dose: 10 mg Metoclopramide HCl (Metoclopramide Hcl 5 Mg Tablet) 5 mg PO Q6H PRN PRN Reason: nausea and vomiting Metoprolol Tartrate (Metoprolol Tartrate 12.5 Mg Halftab) 12.5 mg PO BID [facility]; Protocol Last Admin: 08/28/22 09:03 Dose: Not Given Montelukast Sodium (Montelukast Sodium 10 Mg Tablet) 10 mg PO BEDTIME [facility] Last Admin: 08/27/22 20:59 Dose: 10 mg Morphine Sulfate (Morphine Sulfate 4 Mg/Ml Cartridge) 2 mg IVPUSH Q4H PRN; Protocol PRN Reason: Pain, Severe (Pain Scale 7-10) Multivitamins/Vitamin C (Multivitamin Tablet) 1 tab PO DAILY [facility] Last Admin: 08/28/22 09:01 Dose: 1 tab Nitroglycerin (Nitroglycerin 0.4 Mg Tab.Subl) 0.4 mg SUBLINGUAL Q5MX3 PRN PRN Reason: Chest Pain Non-Formulary Medication (Umeclidinium [Incruse Ellipta]) 1 puff INHALE DAILY [facility] Omeprazole (Omeprazole 20 Mg Capsule.Dr) 20 mg PO DAILY@0630 [facility] Last Admin: 08/28/22 05:57 Dose: 20 mg Ondansetron HCl (Ondansetron Hcl 4 Mg/2 Ml Vial) 4 mg IVPUSH Q8H PRN PRN Reason: Nausea and Vomiting Sertraline HCl (Sertraline Hcl 100 Mg Tablet) 200 mg PO DAILY [facility] Last Admin: 08/28/22 09:05 Dose: 200 mg Sodium Chloride (0.9 % Sodium Chloride Flush 3 Ml Syringe) 3 ml IVFLUSH QSHIFT [facility] Last Admin: 08/28/22 08:52 Dose: Not Given Trazodone HCl (Trazodone Hcl 100 Mg Tablet) 100 mg PO BEDTIME PRN PRN Reason: Insomnia Trazodone HCl (Trazodone Hcl 100 Mg Tablet) 200 mg PO BEDTIME [facility] Last Admin: 08/27/22 20:58 Dose: 200 mg Home Medications Medication Instructions Recorded Confirmed Last Taken Type benazepril 10 mg tablet 1 tab PO QAM 11/20/20 08/27/22 08/27/22 History diltiazem HCl 120 mg 1 cap PO BID 11/20/20 08/27/22 08/27/22 History capsule,extended release 12 hr donepezil 5 mg tablet 1 tab PO BEDTIME 11/20/20 08/27/22 08/27/22 History montelukast 10 mg tablet 1 tab PO BEDTIME 11/20/20 08/27/22 08/26/22 History sertraline 100 mg tablet 200 mg PO DAILY 11/20/20 08/27/22 08/27/22 History calcium carbonate 600 mg-vitamin 1 tab PO BID 08/27/22 08/27/22 08/27/22 History D3 5 mcg (200 unit) tablet fluticasone 500 mcg-salmeterol 50 1 puff inhalation BID 08/27/22 08/27/22 08/27/22 History mcg/dose blistr powdr for inhalation fluticasone propionate 50 1 spray intranasal DAILY PRN 08/27/22 08/27/22 Unknown History mcg/actuation nasal Allergy Symptoms spray,suspension isosorbide mononitrate 60 mg 1 tab PO DAILY 08/27/22 08/27/22 08/27/22 History tablet,extended release 24 hr multivitamin-ferrous 1 tab PO DAILY 08/27/22 08/27/22 08/27/22 History fumarate-folic acid 18 mg-400 mcg tablet (Certavite-Antioxidant) omeprazole 20 mg capsule,delayed 1 cap PO DAILY 08/27/22 08/27/22 08/27/22 History release trazodone 100 mg tablet 100 mg PO BEDTIME PRN Insomnia 08/27/22 08/27/22 08/27/22 History trazodone 100 mg tablet 200 mg PO BEDTIME 08/27/22 08/27/22 08/26/22 History umeclidinium 62.5 mcg/actuation 1 puff inhalation DAILY 08/27/22 08/27/22 08/27/22 History blister powder for inhalation (Incruse Ellipta) Physical Exam Vital Signs: Vital Signs: Last Vital Signs Temp 97.9 F 08/28/22 07:53 Pulse 56 08/28/22 09:09 Resp 13 08/28/22 09:09 BP 126/60 08/28/22 09:09 Pulse Ox 98 08/28/22 09:09 O2 Del Method 08/28/22 09:09 O2 Flow Rate 2 08/28/22 09:09 BMI result Body Mass Index 19.4 Const: General: cooperative, comfortable, no acute distress, alert and awake Nutritional Appearance: thin Orientation/consciousness: patient oriented x3 Limitations: no limitations HEENT: Head: Yes normocephalic and Yes atraumatic Neck: Neck: Yes trachea midline, Yes supple and Yes no JVD Resp: Effort & Inspection: normal respiratory effort Auscultation: clear to auscultation bilaterally Cardio: Jugular venous distension: no JVD Palpation: normal PMI Rate: regular rate Rhythm: regular rhythm Heart sounds: S1 normal heart sound present, S2 normal heart sound present, no click, no gallops, no murmurs and no rubs GI: Auscultation: normal bowel sounds Skin: General skin exam: no rashes or lesions noted Neuro: General: patient oriented x3 and no focal motor deficits Extrem: General: Yes no clubbing, cyanosis or edema Objective Labs and Meds Result diagrams: 08/28/22 05:43 08/27/22 14:54 Lab results: Laboratory Results - last 24 hr 08/27/22 08/27/22 08/27/22 14:36 14:36 14:36 WBC 4.6 L RBC 5.01 Hgb 14.3 Hct 44.2 MCV 88.2 MCH 28.5 MCHC 32.4 RDW 12.8 Plt Count 218 MPV 10.9 Immature Gran % (Auto) 0.4 Neut % (Auto) 75.2 H Lymph % (Auto) 17.0 L Harper % (Auto) 6.8 Eos % (Auto) 0.2 Baso % (Auto) 0.4 Lymph # (Auto) 0.8 L Harper # (Auto) 0.3 Eos # (Auto) 0.0 Baso # (Auto) 0.0 Abs Immat Gran (auto) 0.02 Absolute Neuts (auto) 3.5 Absolute Nucleated RBC 0.000 Nucleated RBC % (auto) 0.0 PT 12.5 INR 1.1 APTT 33.4 aPTT Heparin Protocol Sodium Potassium Chloride Carbon Dioxide Anion Gap BUN Creatinine Estim Creat Clear Calc Estimated GFR Random Glucose Estimat Average Glucose Hemoglobin A1c % Calcium Magnesium Total Bilirubin AST ALT Alkaline Phosphatase Troponin I High Sens 417.0 H* Total Protein Albumin Triglycerides Cholesterol LDL Cholesterol, Calc HDL Cholesterol Influenza Type A (PCR) Influenza Type B (PCR) RSV RNA Qual (PCR) SARS-CoV-2 RNA (RT-PCR) 08/27/22 08/27/22 08/27/22 14:49 14:54 17:19 WBC RBC Hgb Hct MCV MCH MCHC RDW Plt Count MPV Immature Gran % (Auto) Neut % (Auto) Lymph % (Auto) Harper % (Auto) Eos % (Auto) Baso % (Auto) Lymph # (Auto) Harper # (Auto) Eos # (Auto) Baso # (Auto) Abs Immat Gran (auto) Absolute Neuts (auto) Absolute Nucleated RBC Nucleated RBC % (auto) PT INR APTT aPTT Heparin Protocol Sodium 142 Potassium 4.4 Chloride 107 Carbon Dioxide 27 Anion Gap 12 BUN 17 H Creatinine 0.98 Estim Creat Clear Calc 39.2 Estimated GFR 55 Random Glucose 128 H Estimat Average Glucose Hemoglobin A1c % Calcium 9.8 Magnesium 2.2 Total Bilirubin 0.5 AST 28 ALT 18 Alkaline Phosphatase 130 H Troponin I High Sens 1797.1 H* D Total Protein 7.0 Albumin 4.2 Triglycerides Cholesterol LDL Cholesterol, Calc HDL Cholesterol Influenza Type A (PCR) NEGATIVE Influenza Type B (PCR) NEGATIVE RSV RNA Qual (PCR) NEGATIVE SARS-CoV-2 RNA (RT-PCR) NEGATIVE 08/27/22 08/28/22 08/28/22 23:32 01:34 03:24 WBC RBC Hgb Hct MCV MCH MCHC RDW Plt Count MPV Immature Gran % (Auto) Neut % (Auto) Lymph % (Auto) Harper % (Auto) Eos % (Auto) Baso % (Auto) Lymph # (Auto) Harper # (Auto) Eos # (Auto) Baso # (Auto) Abs Immat Gran (auto) Absolute Neuts (auto) Absolute Nucleated RBC Nucleated RBC % (auto) PT INR APTT aPTT Heparin Protocol > 200.0 H* 96.2 H D 40.7 L D Sodium Potassium Chloride Carbon Dioxide Anion Gap BUN Creatinine Estim Creat Clear Calc Estimated GFR Random Glucose Estimat Average Glucose Hemoglobin A1c % Calcium Magnesium Total Bilirubin AST ALT Alkaline Phosphatase Troponin I High Sens Total Protein Albumin Triglycerides Cholesterol LDL Cholesterol, Calc HDL Cholesterol Influenza Type A (PCR) Influenza Type B (PCR) RSV RNA Qual (PCR) SARS-CoV-2 RNA (RT-PCR) 08/28/22 08/28/22 08/28/22 05:43 05:43 05:43 WBC 4.7 L RBC 4.76 Hgb 13.5 Hct 43.7 MCV 91.8 MCH 28.4 MCHC 30.9 L RDW 13.1 Plt Count 192 MPV 11.6 Immature Gran % (Auto) Neut % (Auto) Lymph % (Auto) Harper % (Auto) Eos % (Auto) Baso % (Auto) Lymph # (Auto) Harper # (Auto) Eos # (Auto) Baso # (Auto) Abs Immat Gran (auto) Absolute Neuts (auto) Absolute Nucleated RBC 0.000 Nucleated RBC % (auto) 0.0 PT 11.9 INR 1.0 APTT aPTT Heparin Protocol Sodium Potassium Chloride Carbon Dioxide Anion Gap BUN Creatinine Estim Creat Clear Calc Estimated GFR Random Glucose Estimat Average Glucose 123 Hemoglobin A1c % 5.9 Calcium Magnesium Total Bilirubin AST ALT Alkaline Phosphatase Troponin I High Sens Total Protein Albumin Triglycerides Cholesterol LDL Cholesterol, Calc HDL Cholesterol Influenza Type A (PCR) Influenza Type B (PCR) RSV RNA Qual (PCR) SARS-CoV-2 RNA (RT-PCR) 08/28/22 08/28/22 05:43 05:43 WBC RBC Hgb Hct MCV MCH MCHC RDW Plt Count MPV Immature Gran % (Auto) Neut % (Auto) Lymph % (Auto) Harper % (Auto) Eos % (Auto) Baso % (Auto) Lymph # (Auto) Harper # (Auto) Eos # (Auto) Baso # (Auto) Abs Immat Gran (auto) Absolute Neuts (auto) Absolute Nucleated RBC Nucleated RBC % (auto) PT INR APTT aPTT Heparin Protocol Sodium Potassium Chloride Carbon Dioxide Anion Gap BUN Creatinine Estim Creat Clear Calc Estimated GFR Random Glucose Estimat Average Glucose Hemoglobin A1c % Calcium Magnesium Total Bilirubin AST ALT Alkaline Phosphatase Troponin I High Sens > 3600.0 H* D Total Protein Albumin Triglycerides 60 Cholesterol 125 LDL Cholesterol, Calc 56 HDL Cholesterol 57 Influenza Type A (PCR) Influenza Type B (PCR) RSV RNA Qual (PCR) SARS-CoV-2 RNA (RT-PCR) EKG as above Imaging Radiologist's impression: Impressions Chest X-Ray 08/27/22 15:11 IMPRESSION: No acute cardiopulmonary process. Assessment and Plan (1) Acute non-ST elevation myocardial infarction (NSTEMI): Status: Acute Acute coronary syndrome with rising troponins associated with EKG changes and possible wall motion abnormality on preliminary echocardiogram with multiple risk factors. High risk for acute coronary syndrome consistent with NSTEMI. Discussed with help of tableau architect that she require cardiac catheterization. We explained the risks, benefits, alternatives and 2nd open to procedure. She is agreeable. Will arrange for transfer to [facility] for cardiac catheterization. Continue aspirin as well as high-intensity statin therapy. Continue IV heparin for at least 72 hours. Will start on metoprolol 12.5 mg q.6 hours. Currently chest pain-free and does not require any additional nitroglycerin. Continue supportive care. Management was discussed in details including [place]ast for any further questions that she might have. She understood. Thank you for allowing us to partake in the care Procedures Date of Service Date of Service: 08/28/22
[2022-08-28 10:25] LABS: PTT Heparin Drip 46.4 SEC (53-77.9)
[2022-08-28] MEDS: Heparin Sodium,Porcine 5,000 UNIT/ML VIAL 2100 UNIT IVPUSH (11:12)
--- NOTE | 2022-08-28 11:56 | PM.DS ---
DS: Providers Provider Date of Service: 08/28/22 Date of admission: 08/27/22 17:33 Date of discharge: 08/28/22 Primary care physician: Tiffany Kent MD Consults: 08/27/22 17:31 Consult to Cardiology Routine Consulting Provider: Attila Calle Reason for consultation: NSTEMI DS: Diagnosis Discharge Diagnosis (1) Acute non-ST elevation myocardial infarction (NSTEMI): Status: Acute DS: Summary Hospital Course Hospital Course: from my admission history and physical, 08/27/22: 77yo F with HTN, HLD, prior NSTEMI, hx PE on apixaban, and asthma presenting with L-sided chest pressure that woke her from sleep at 23:00 last night.? Non-radiating and non-exertional.? She subsequently had shortness of breath and nausea and vomited all night.? Pain has improved since then.? No cough.? No leg sweling.? No palpitations.? No lightheadedness.? In the ED, hs-Tn-I was 417.? EKG showed sinus bradycardia with no ischemic changes.? She was given nitroglycerin and aspirin and her pain has resolved.? She was started on heparin IV infusion. She was admitted to the hospitalist service on telemetry. She was chest pain-free during her admission. Hs-Tn-I increased to >3600 ng/L. EKG showed inferior T waves inversions, and preliminary echocardiogram showed wall motion abnormalities. Heparin infusion was continued and she was given aspirin, atorvastatin, and metoprolol. Cardiology was consulted and she was transferred to [facility] for cardiac catheterization. Time Spent with Patient Time attestation: Total time spent providing and/or coordinating discharge services: 35 Discharge coordination time: Greater than 30 minutes Quality: Safe Use of Opioids Does Pt have an Active Cancer Diagnosis on the Problem List?: No Quality: Stroke Does the patient have a stroke diagnosis?: No Physical Exam Vital Signs: Vital Signs: Last Vital Signs Temp 97.9 F 08/28/22 07:53 Pulse 56 08/28/22 09:09 Resp 13 08/28/22 09:09 BP 126/60 08/28/22 09:09 Pulse Ox 98 08/28/22 09:09 O2 Del Method 08/28/22 09:09 O2 Flow Rate 2 08/28/22 09:09 BMI result Body Mass Index 19.4 Gen: in no acute distress HEENT: sclera anicteric, moist mucus membranes Neck: supple Lungs: clear to auscultation bilaterally Heart: regular rate and rhythm, no murmurs Abd: soft, non-tender, non-distended Ext: no edema Skin: warm/well-perfused Neuro: alert and oriented x3, no focal findings Psych: appropriate affect DS: Data Data Completed and Pending Completed studies during hospitalization [Text1]: Laboratory Results WBC 4.7 X10*3/uL (4.8-10.8) L 08/28/22 05:43 RBC 4.76 X10*6/uL (4.20-5.50) 08/28/22 05:43 Hgb 13.5 g/dl (12.0-16.0) 08/28/22 05:43 Hct 43.7 % (37.0-47.0) 08/28/22 05:43 MCV 91.8 fL (80.0-98.0) 08/28/22 05:43 MCH 28.4 pg (27.0-33.0) 08/28/22 05:43 MCHC 30.9 g/dl (31.0-35.0) L 08/28/22 05:43 RDW 13.1 % (11.0-16.0) 08/28/22 05:43 Plt Count 192 X10*3/uL (160-400) 08/28/22 05:43 MPV 11.6 fL (9.4-12.3) 08/28/22 05:43 Immature Gran % (Auto) 0.4 % (0.0-0.4) 08/27/22 14:36 Neut % (Auto) 75.2 % (45-73) H 08/27/22 14:36 Lymph % (Auto) 17.0 % (20-40) L 08/27/22 14:36 [place] % (Auto) 6.8 % (2-11) 08/27/22 14:36 Eos % (Auto) 0.2 % (0-4) 08/27/22 14:36 Baso % (Auto) 0.4 % (0-2) 08/27/22 14:36 Lymph # (Auto) 0.8 X10*3/uL (1.2-4.9) L 08/27/22 14:36 [place] # (Auto) 0.3 X10*3/uL (0.1-1.2) 08/27/22 14:36 Eos # (Auto) 0.0 X10*3/uL (0.0-0.4) 08/27/22 14:36 Baso # (Auto) 0.0 X10*3/uL (0.0-0.2) 08/27/22 14:36 Abs Immat Gran (auto) 0.02 X10*3/uL (0.00-0.03) 08/27/22 14:36 Absolute Neuts (auto) 3.5 x10*3/uL (2.0-8.3) 08/27/22 14:36 Absolute Nucleated RBC 0.000 X10*3/uL (0.0-0.012) 08/28/22 05:43 Nucleated RBC % (auto) 0.0 /100WBC (0.0-0.2) 08/28/22 05:43 PT 11.9 SEC (10.0-13.1) 08/28/22 05:43 INR 1.0 (0.9-1.1) 08/28/22 05:43 APTT 33.4 SEC (26.0-36.4) 08/27/22 14:36 aPTT Heparin Protocol 46.4 SEC (53-77.9) L 08/28/22 10:08 Sodium 142 mmol/L (135-145) 08/27/22 14:54 Potassium 4.4 mmol/L (3.3-5.1) 08/27/22 14:54 Chloride 107 mmol/L (96-108) 08/27/22 14:54 Carbon Dioxide 27 mmol/L (22-29) 08/27/22 14:54 Anion Gap 12 (12-20) 08/27/22 14:54 BUN 17 mg/dL (9-16) H 08/27/22 14:54 Creatinine 0.98 mg/dL (0.5-1.4) 08/27/22 14:54 Estim Creat Clear Calc 39.2 08/27/22 14:54 Estimated GFR 55 08/27/22 14:54 Random Glucose 128 mg/dL (60-115) H 08/27/22 14:54 Estimat Average Glucose 123 mg/dL 08/28/22 05:43 Hemoglobin A1c % 5.9 % 08/28/22 05:43 Calcium 9.8 mg/dL (8.4-10.2) 08/27/22 14:54 Magnesium 2.2 mg/dL (1.6-2.6) 08/27/22 14:54 Total Bilirubin 0.5 mg/dL (0.0-1.0) 08/27/22 14:54 AST 28 U/L (5-31) 08/27/22 14:54 ALT 18 U/L (0-31) 08/27/22 14:54 Alkaline Phosphatase 130 U/L (39-117) H 08/27/22 14:54 Troponin I High Sens > 3600.0 ng/L (<3.5-17.0) H* D 08/28/22 05:43 Total Protein 7.0 g/dL (6.5-8.0) 08/27/22 14:54 Albumin 4.2 g/dL (3.5-5.0) 08/27/22 14:54 Triglycerides 60 mg/dL 08/28/22 05:43 Cholesterol 125 mg/dL 08/28/22 05:43 LDL Cholesterol, Calc 56 mg/dl 08/28/22 05:43 HDL Cholesterol 57 mg/dL 08/28/22 05:43 Influenza Type A (PCR) NEGATIVE (Negative) 08/27/22 14:49 Influenza Type B (PCR) NEGATIVE (Negative) 08/27/22 14:49 RSV RNA Qual (PCR) NEGATIVE (Negative) 08/27/22 14:49 SARS-CoV-2 RNA (RT-PCR) NEGATIVE (Negative) 08/27/22 14:49 Impressions Chest X-Ray 08/27/22 15:11 IMPRESSION: No acute cardiopulmonary process. TTE 08/28/22 1. [id number] LV systolic dysfunction with regional wall motion abnormality suggestive underlying coronary artery disease with impaired relaxation filling pattern ? 2. Trace aortic regurgitation? 3. Normal RV systolic pressure ? 4. No pericardial effusion ? Discharge Plan Discharge Anticipated Discharge Date/Time: 08/28/22 11:48 Patient Disposition: Xfer Acute Care Hospital Discharge Diagnosis: NSTEMI Referrals: [facility] [Other] - 1 Week Tiffany Kent MD [Primary Care Provider] - 1 Week Discharge Medications: New heparin(porcine) in 0.45% NaCl 25,000 unit/250 mL Parenteral Solution 25,000 unit continuous IV infusion .Q0M Qty: 6000 0RF aspirin 81 mg Tablet,Chewable 81 mg PO DAILY Qty: 1 0RF heparin (porcine) 5,000 unit/mL Solution 2,100 unit IVPUSH PROTOCOL BOLUS PRN (Reason: 40 Unit/Kg - Heparin Protocol) Qty: 1 0RF heparin (porcine) 5,000 unit/mL Solution 4,100 unit IVPUSH PROTOCOL BOLUS PRN (Reason: 80 Unit/Kg - Heparin Protocol) Qty: 1 0RF morphine 4 mg/mL Syringe 2 mg IVPUSH Q4H PRN (Reason: Pain, Severe (Pain Scale 7-10)) Qty: 10 0RF Protocol: Hold for RR < HOLD and contact provider for RR < (bpm): 12 Rx Instructions: Partial Fill upon patient request. ondansetron HCl (PF) 4 mg/2 mL Solution 4 mg IVPUSH Q8H PRN (Reason: Nausea And Vomiting) Qty: 10 0RF metoprolol tartrate 25 mg tablet 12.5 mg PO Q6H Qty: 1 0RF Continued sertraline 100 mg tablet 200 mg PO DAILY montelukast 10 mg tablet 1 tab PO BEDTIME benazepril 10 mg tablet 1 tab PO QAM atorvastatin 80 mg Tablet 80 mg PO BEDTIME Qty: 30 0RF acetaminophen [Tylenol Extra Strength] 500 mg tablet 500 mg PO Q6H PRN (Reason: fever or pain) Qty: 14 0RF cyclobenzaprine 5 mg tablet 5 mg PO Q8H PRN (Reason: pain (scale score 7-10)) 5 Days Qty: 14 0RF metoclopramide HCl [Reglan] 5 mg tablet 5 mg PO Q6H PRN (Reason: nausea and vomiting) Qty: 10 0RF calcium carbonate-vitamin D3 600 mg-5 mcg (200 unit) tablet 1 tab PO BID fluticasone propion-salmeterol 500-50 mcg/dose blister with device 1 puff inhalation BID Certavite-Antioxidant 18-400 mg-mcg tablet 1 tab PO DAILY Incruse Ellipta 62.5 mcg/actuation blister with device 1 puff inhalation DAILY isosorbide mononitrate 60 mg tablet extended release 24 hr 1 tab PO DAILY trazodone 100 mg tablet 200 mg PO BEDTIME omeprazole 20 mg capsule,delayed release(DR/EC) 1 cap PO DAILY trazodone 100 mg tablet 100 mg PO BEDTIME PRN (Reason: Insomnia) Rx Instructions: If addition to 200 mg if cannot sleep fluticasone propionate 50 mcg/actuation [place],Suspension 1 spray INTRANASAL DAILY PRN (Reason: Allergy Symptoms) Rx Instructions: administer into each nostril Discontinued donepezil 5 mg tablet 1 tab PO BEDTIME diltiazem HCl 120 mg capsule,extended release 12 hr 1 cap PO BID Eliquis 5 mg tablet 5 mg PO BID Qty: 90 0RF Rx Instructions: take 10 mg bid for 7 days then 5 mg BID Discharge Orders: Discharge Order (Routine); Ordered 08/28/22 Ordered By: Nolberto Oliver Diet: Low salt diet Activity on Discharge: As tolerated Stand Alone Forms: Patient Portal Discharge page Care Plan Goals: cardiac health Health Concerns: NSTEMI Plan of Treatment: transfer to [facility] for cardiac catheterization Assessment: See Discharge Summary.
--- NOTE | 2022-08-28 11:59 | MHC.CM.PN ---
pt being dcd to [facility]
[2022-08-28 13:35] LABS: Reflex LDLD? No
--- NOTE | 2022-08-28 14:25 | PC.NURSE ---
spoke w [facility] to coordinate transport/pt discharge to [facility], M7, Room 7127, Dr Gonzalez
[2022-08-28 14:39] VITALS: BP 85/52; PULSE 69; RESP 21; O2SAT 96
--- NOTE | 2022-08-28 14:48 | PC.NURSE ---
RN-RN [place] into [facility] [place] per [facility] [place].
[2022-08-28] MEDS: 0.9 % Sodium Chloride 1,000 ML 999 ML IV (14:53)
[2022-08-28 15:40] VITALS: BP 101/53; PULSE 66; RESP 18; O2SAT 99
--- NOTE | 2022-08-28 15:58 | PC.NURSE ---
Report received from Lorena RN at 1500 and RN made aware that pt would be EMS transport to [place] [address] unit. This RN was informed report had already been called and transport booked. Pt resting comfortably in bed without distress noted as RN previously noted upon entry into the unit through pt's open curtain. The pt was observed to have her NC in place..
--- NOTE | 2022-08-28 16:03 | PC.NURSE ---
DISCHARGE NOTE: RN to EMS report given at nurses station and both parties approached the pt at the same time for visual obsevation. Pt found to be awake and alert without distress noted. Pt was noted to eagerly and independently stand and ambulate to nearby EMS stretcher grabbing her blankets along the way without need for physcial assistance. Pt denied questions/concerns at time of dc. Pt's heparin infusion was running at 10 units/kg/hr at time of dc without s/s of complications noted to insertion site.
== END 2022-08-28 18:00 | disposition short-term general hospital (02) | DRG 282 ==
LOC: HO.ED 16:42 → HO.EDOVER 17:40
PROVIDERS: Physician Assistant Medical; Student in an Organized Health Care Education/Training Program; Admitting Provider Family Medicine; Emergency Provider Emergency Medicine; PCP Family Medicine; Visit Provider Family Medicine
DX: I21.4 Non-ST elevation (NSTEMI) myocardial infarction (principal); J45.909 Unspecified asthma, uncomplicated; K21.9 Gastro-esophageal reflux disease without esophagitis; F32.A Depression, unspecified; Z20.822 Contact with and (suspected) exposure to COVID-19; Z86.711 Personal history of pulmonary embolism; Z88.5 Allergy status to narcotic agent; Z79.51 Long term (current) use of inhaled steroids; Z79.82 Long term (current) use of aspirin; Z79.899 Other long term (current) drug therapy
CPT/HCPCS: 0241U; 36415; 71046; 80053; 80061; 83036; 83735; 84484; 85025; 85027; 85610; 85730; 93005; 93306; 99285; J2270; J2405; Q9957

== ENCOUNTER 2022-10-07 13:57 | Outpatient (REF) | payer OTHER, SELFPAY ==
--- NOTE | ~2022-10-07 | XR_ITS ---
EXAMINATION: XR HIP, RIGHT CLINICAL INFORMATION: Pain COMPARISON: None TECHNIQUE: Two views of the right hip. One view of the pelvis. FINDINGS: No acute fracture or dislocation. Joint spaces are maintained. Soft tissues are unremarkable. Enthesopathy of the right lesser trochanter. XR/XR hip RT w PEL1V IMPRESSION: Enthesopathy of the right lesser trochanter.
== END 2022-10-07 13:58 | disposition home or self-care (01) ==
LOC: HO.XRAY 13:57
PROVIDERS: PCP Family Medicine; Visit Provider Family Medicine
DX: M25.551 Pain in right hip (principal)
CPT/HCPCS: 73502

== ENCOUNTER 2022-11-27 09:36 | Emergency (ER) | payer OTHER, SELFPAY ==
--- NOTE | 2022-11-27 | ECG_ITS ---
Test Reason : chest pain Blood Pressure : / mmHG Vent. Rate : 070 BPM Atrial Rate : 070 BPM P-R Int : 140 ms QRS Dur : 068 ms QT Int : 410 ms P-R-T Axes : 040 -02 003 degrees QTc Int : 442 ms Normal sinus rhythm with sinus arrhythmia Septal infarct , age undetermined - changes could be from lead placement Otherwise normal EKG When compared with ECG of 28-AUG-2022 08:29, Septal infarct is now Present Referred By: Generic ED Physician Electronically Signed By:RAGHU MULLINS
--- NOTE | ~2022-11-27 | XR_ITS ---
EXAMINATION: XR CHEST CLINICAL INFORMATION: Acute chest pain. COMPARISON: 08/27/2022 chest radiographs. TECHNIQUE: 2 views of the chest were obtained. FINDINGS: No significant abnormality is noted involving the heart, lungs, mediastinum, bony thorax or soft tissues. XR/XR chest 2V IMPRESSION: No acute cardiopulmonary process.
--- NOTE | ~2022-11-27 | CT_ITS ---
EXAMINATION: CT ABDOMEN AND PELVIS WITH CONTRAST CLINICAL INFORMATION: Acute lower abdominal pain. COMPARISON: CT scan of the abdomen and pelvis dated 12/29/2021 TECHNIQUE: Multidetector volumetric images were obtained from the superior aspect of the liver through the pubic symphysis following administration 85 mL of Omnipaque 350 intravenous contrast. Sagittal and coronal reformatted images were obtained on the technologist's workstation. Oral contrast: No This CT examination was performed using dose optimization techniques as appropriate, variously including the following: *Automated exposure control *Adjustment of mA and/or kV according to patient size (this includes techniques or standardized protocols for targeted exams where dose is matched to indication/reason for exam; i.e. extremities or head) *Use of iterative reconstruction technique DLP: 357 mGy-cm FINDINGS: LUNG BASES: The visualized lung bases are unremarkable. LIVER, GALLBLADDER, AND BILIARY TREE: No significant hepatic abnormality. Status post cholecystectomy. Mild associated biliary ductal dilatation without significant change. No intraluminal abnormality. PANCREAS: Unremarkable. SPLEEN: Unremarkable. ADRENAL GLANDS: Unremarkable. 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 No nephrolithiasis or hydroureteronephrosis. BLADDER: Mildly distended with diffuse moderate mural thickening. No definitive focal mural or intraluminal abnormality. GASTROINTESTINAL TRACT: Small to moderate hiatal hernia. The remainder the stomach is unremarkable. The small bowel and appendix are unremarkable. The colon is decompressed distally without surrounding abnormality. The rectum is unremarkable. ABDOMINAL WALL: No significant hernia is appreciated. LYMPH NODES: No lymphadenopathy. VASCULAR: Unremarkable. PELVIC VISCERA: Atrophic uterus without significant abnormality. No adnexal abnormality. OSSEOUS STRUCTURES: Mild multilevel degenerative changes without suspicious abnormality. CT/CT abdomen pelvis w IV con IMPRESSION: 1. Small to moderate hiatal hernia is mildly increased without significant change. 2. Moderate mural thickening in the urinary bladder may be secondary to a combination of incomplete distention and chronic changes, but is increased compared to the 2021 study. Correlate with urinary symptoms as mild cystitis cannot be excluded.
[2022-11-27 09:41] VITALS: BP 149/78; BP 154/74; PULSE 69; PULSE 76; RESP 12; TEMP 36.6; O2SAT 94; O2SAT 96; BMI 23.2
[2022-11-27 10:05] LABS: MANUAL DIFF FLAG NO
[2022-11-27 10:08] LABS: Basophils Percent Auto 0.5 % (0-2); Eosinophils Absolute Auto 0.2 X10*3/uL (0.0-0.4); Eosinophils Percent Auto 2.5 % (0-4); Hematocrit 42.5 % (37.0-47.0); Hemoglobin 13.5 g/dl (12.0-16.0); Imm Gran Abs Auto 0.01 X10*3/uL (0.00-0.03); Imm Gran Pct Auto 0.2 % (0.0-0.4); Lymphocytes Absolute Auto 1.1 X10*3/uL (1.2-4.9); Lymphocytes Percent Auto 18.2 % (20-40); Mean Corpuscular HGB Conc 31.8 g/dl (31.0-35.0); Mean Corpuscular Hemoglobin 28.3 pg (27.0-33.0); Mean Corpuscular Volume 89.1 fL (80.0-98.0); Monocytes Absolute Auto 0.5 X10*3/uL (0.1-1.2); Monocytes Percent Auto 8.4 % (2-11); Neutrophils Absolute Auto 4.3 x10*3/uL (2.0-8.3); Neutrophils Percent Auto 70.2 % (45-73); Platelet Count 205 X10*3/uL (160-400); Red Blood Count 4.77 X10*6/uL (4.20-5.50); Red Cell Distribution Width 12.6 % (11.0-16.0); White Blood Count 6.1 X10*3/uL (4.8-10.8)
--- NOTE | 2022-11-27 10:09 | ED_ITS ---
HPI - General Adult General Chief complaint: Nausea/Vomiting/Diarrhea Stated complaint: Vomiting, from home per EMS Time Seen by Provider: 11/27/22 09:43 Source: patient Mode of arrival: EMS Limitations: no limitations History of Present Illness HPI narrative: 77-year-old female presents with nausea, vomiting, abdominal pain, diarrhea. Symptoms started over the last 24 hours. She describes symptoms as moderate to severe. There is no clear relieving or exacerbating features. The pain is located in lower abdomen. The pain is intermittent. Crampy in nature. Is not associated with any urinary complaints. She denies any blood in her stool or vomitus. She denies any fevers, chills, sweats. No known sick contacts. Upon EMS arrival, patient was noted to be slightly hypertensive, no acute distress, active vomiting prior to arrival, blood sugar was above 200 without a history of diabetes. She came with a medication list. Patient also reported some left-sided chest discomfort associated with nausea vomiting. She denies any chest pain with exertion. She denies any orthopnea, PND, lower extremity edema. Related Data Home Medications Medication Instructions Recorded Confirmed benazepril 10 mg tablet 1 tab PO QAM 11/20/20 08/27/22 montelukast 10 mg tablet 1 tab PO BEDTIME 11/20/20 08/27/22 sertraline 100 mg tablet 200 mg PO DAILY 11/20/20 08/27/22 calcium carbonate 600 mg-vitamin 1 tab PO BID 08/27/22 08/27/22 D3 5 mcg (200 unit) tablet fluticasone 500 mcg-salmeterol 50 1 puff inhalation BID 08/27/22 08/27/22 mcg/dose blistr powdr for inhalation fluticasone propionate 50 1 spray intranasal DAILY PRN 08/27/22 08/27/22 mcg/actuation nasal Allergy Symptoms spray,suspension isosorbide mononitrate 60 mg 1 tab PO DAILY 08/27/22 08/27/22 tablet,extended release 24 hr multivitamin-ferrous 1 tab PO DAILY 08/27/22 08/27/22 fumarate-folic acid 18 mg-400 mcg tablet (Certavite-Antioxidant) omeprazole 20 mg capsule,delayed 1 cap PO DAILY 08/27/22 08/27/22 release trazodone 100 mg tablet 100 mg PO BEDTIME PRN Insomnia 08/27/22 08/27/22 trazodone 100 mg tablet 200 mg PO BEDTIME 08/27/22 08/27/22 umeclidinium 62.5 mcg/actuation 1 puff inhalation DAILY 08/27/22 08/27/22 blister powder for inhalation (Incruse Ellipta) Previous Rx's Medication Instructions Recorded atorvastatin 80 mg tablet 80 mg PO BEDTIME #30 tabs 05/12/21 acetaminophen 500 mg tablet 500 mg PO Q6H PRN fever or pain 04/22/22 (Tylenol Extra Strength) #14 tabs cyclobenzaprine 5 mg tablet 5 mg PO Q8H PRN pain (scale score 04/22/22 7-10) 5 days #14 tabs metoclopramide HCl 5 mg tablet 5 mg PO Q6H PRN nausea and 08/06/22 (Reglan) vomiting #10 tabs aspirin 81 mg chewable tablet 81 mg PO DAILY #1 tab 08/28/22 heparin (porcine) 25,000 unit/250 25,000 unit (250 mL) continuous IV 08/28/22 mL in 0.45 % sodium chloride IV infusion .Q0M #6,000 mL soln heparin (porcine) 5,000 unit/mL 2,100 unit (0.42 mL) IVPUSH 08/28/22 injection solution PROTOCOL BOLUS PRN 40 Unit/Kg - Heparin Protocol #1 mL heparin (porcine) 5,000 unit/mL 4,100 unit (0.82 mL) IVPUSH 08/28/22 injection solution PROTOCOL BOLUS PRN 80 Unit/Kg - Heparin Protocol #1 mL metoprolol tartrate 25 mg tablet 12.5 mg PO Q6H #1 tab 08/28/22 morphine 4 mg/mL intravenous 2 mg IVPUSH Q4H PRN Pain, Severe 08/28/22 syringe (Pain Scale 7-10) #10 mL ondansetron HCl (PF) 4 mg/2 mL 4 mg (2 mL) IVPUSH Q8H PRN Nausea 08/28/22 injection solution And Vomiting #10 mL ondansetron 4 mg disintegrating 4 mg PO Q8H PRN nausea and 11/27/22 tablet vomiting #10 tabs Allergies Allergy/AdvReac Type Severity Reaction Status Date / Time oxycodone [OXYCODONE] Allergy Unknown UNKNOWN Verified 02/12/22 16:59 Review of Systems Review of Systems: CONSTITUTIONAL: Denies weight loss, fever and chills. HEENT: Denies changes in vision and hearing. RESPIRATORY: Denies SOB and cough. CV: Denies palpitations + CP. GI: + abdominal pain, nausea, vomiting and diarrhea. : Denies dysuria and urinary frequency. MSK: Denies myalgia and joint pain. SKIN: Denies rash and pruritus. NEUROLOGICAL: Denies headache and syncope. PSYCHIATRIC: Denies recent changes in mood. Denies anxiety and depression. All other ROS are negative unless in HPI [facility] Past Medical History Medical History Aortic insufficiency Asthma Depression Diabetes GERD (gastroesophageal reflux disease) High cholesterol Hypertension Multinodular goiter (nontoxic) NSTEMI (non-ST elevated myocardial infarction) Pancreatitis Pulmonary embolism Surgical History No history of previous surgery Family History Family History Father Hypertension Heart disease Mother Hypertension Heart disease Social History Social History Household Members: Family and Other Household Members Other:: daughter is conveyor monitor Housing: Apartment Do you presently have visiting nurse or other home services: No Alcohol intake: never Patient Tobacco Use Status: Never used Tobacco Smoked in Last 30 Days: No Second Hand Smoke Exposure: No Use of substances other than those prescribed or required for medical reasons: No Advance Directives: No Advance Directives Information Provided: No service: No Current occupational status: unemployed and disabled Physical Exam ED Vital Signs: Vital Signs - 24 hr 11/27/22 09:41 11/27/22 11:21 11/27/22 13:49 Temperature 97.9 F 97.8 F 98.3 F Pulse Rate 69 74 80 Respiratory Rate 12 13 24 H Blood Pressure 149/78 H 136/64 133/80 Pulse Oximetry 94 95 95 Oxygen Delivery Method Room Air Room Air Room Air BMI result Body Mass Index 23.2 GEN: Well developed, no acute distress, alert, oriented HEENT: Normocephalic, atraumatic, normal external ears, nose appears normal, no oropharyngeal edema or exudates Eyes: Normal to appearance Neck: Supple, no lymphadenopathy Respiratory: Talks in complete sentences, no respiratory distress, clear to auscultation bilaterally Cardiovascular: Regular rate and rhythm, no murmurs rubs or gallops Abdomen: Soft, nontender, nondistended, no guarding, no rebound Back: No CVA tenderness Extremities: No clubbing cyanosis or edema Neurologic: No focal neurologic deficits, cranial nerves 2-12 intact, strength is 5/5 bilaterally, gait normal Skin: No rash Course Course Course Narrative: 77-year-old female presents with nausea, vomiting, diarrhea, chest discomfort. Her examination is benign. Patient received antiemetics, famotidine. He will also get an EKG to make sure there are no ischemic changes. Order chest x-ray revealed for any anatomical or acute pathology. CT scan of the abdomen and pelvis for complaints of abdominal pain will be ordered as well Reevaluation(s) Reevaluation #1: Patient is feeling much better now. Her nausea has disappeared. She has been able to tolerate liquids without difficulty. She would like to be discharged at this time. I did inform her about the thickened bladder wall which can discuss with her primary care provider. All discharge instructions were discussed and understood. I would prefer I had a prescription for Zofran. For intractable nausea, vomiting, abdominal pain or any concerning symptoms patient will return for wound re-evaluation. Time: 13:51 Medications Administered Discontinued Medications Generic Name Dose Route Start Last Admin Trade Name Freq PRN Reason Stop Dose Admin Famotidine 20 mg 11/27/22 09:43 11/27/22 11:34 Famotidine/Pf 20 Mg/2 Ml Vial IVPUSH 11/27/22 09:44 20 mg ONCE ONE Administration Iohexol 85 ml 11/27/22 11:20 11/27/22 11:21 Iohexol 350 Mg/Ml 100 Ml Infus..Btl IV 11/27/22 11:21 85 ml ONCE ONE Administration Ondansetron HCl 4 mg 11/27/22 09:43 11/27/22 11:34 Ondansetron Hcl 4 Mg/2 Ml Vial IVPUSH 11/27/22 09:44 4 mg ONCE ONE Administration Medical Decision Making Medical Decision Making [facility] Narrative: Differential diagnosis includes: Abdominal pain, colitis, diverticulitis, appendicitis, gastroenteritis, peptic ulcer disease, pancreatitis, cardiac. Abdominal exam without peritoneal signs. No evidence of acute abdomen at this time. Well appearing. Low suspicion for acute hepatobiliary disease (includng acute cholecystitis), acute pancreatitis, PUD (including perforation), acute infectious processes (pneumonia, hepatitis, pyelonephritis), acute appendicitis, vascular catastrophe, bowel obstruction or viscus perforation. Presentation not consistent with other acute, emergent causes of abdominal pain at this time. Plan: labs, UA, CT, pain control, serial reassessment Differential Diagnosis Differential Diagnoses: The differential diagnosis associated with the presentation includes (Abdominal pain, colitis, diverticulitis, gastroenteritis, UTI, pyelonephritis, gastroenteritis) Nausea, vomiting Admission/Observation Consideration of admission/observation: Escalation of care including admission/observation considered Lab Data MDM Lab Attestation statement: I reviewed the patient's lab results. 11/27/22 09:57 11/27/22 09:57 Labs: Lab Results 11/27/22 11/27/22 11/27/22 Range/Units 09:57 09:57 09:57 WBC 6.1 (4.8-10.8) X10*3/uL RBC 4.77 (4.20-5.50) X10*6/uL Hgb 13.5 (12.0-16.0) g/dl Hct 42.5 (37.0-47.0) % MCV 89.1 (80.0-98.0) fL MCH 28.3 (27.0-33.0) pg MCHC 31.8 (31.0-35.0) g/dl RDW 12.6 (11.0-16.0) % Plt Count 205 (160-400) X10*3/uL MPV 11.0 (9.4-12.3) fL Immature Gran % (Auto) 0.2 (0.0-0.4) % Neut % (Auto) 70.2 (45-73) % Lymph % (Auto) 18.2 L (20-40) % [place] % (Auto) 8.4 (2-11) % Eos % (Auto) 2.5 (0-4) % Baso % (Auto) 0.5 (0-2) % Lymph # (Auto) 1.1 L (1.2-4.9) X10*3/uL [place] # (Auto) 0.5 (0.1-1.2) X10*3/uL Eos # (Auto) 0.2 (0.0-0.4) X10*3/uL Baso # (Auto) 0.0 (0.0-0.2) X10*3/uL Abs Immat Gran (auto) 0.01 (0.00-0.03) X10*3/uL Absolute Neuts (auto) 4.3 (2.0-8.3) x10*3/uL Absolute Nucleated RBC 0.000 (0.0-0.012) X10*3/uL Nucleated RBC % (auto) 0.0 (0.0-0.2) /100WBC Sodium 142 (135-145) mmol/L Potassium 4.6 (3.3-5.1) mmol/L Chloride 107 (96-108) mmol/L Carbon Dioxide 28 (22-29) mmol/L Anion Gap 12 (12-20) BUN 21 H (9-16) mg/dL Creatinine 0.99 (0.5-1.4) mg/dL Estim Creat Clear Calc 35.1 Estimated GFR 54 Random Glucose 150 H (60-115) mg/dL Calcium 9.3 (8.4-10.2) mg/dL Total Bilirubin 1.0 (0.0-1.0) mg/dL AST 21 (5-31) U/L ALT 16 (0-31) U/L Alkaline Phosphatase 148 H (39-117) U/L Troponin I High Sens 4.0 D (<3.5-17.0) ng/L Total Protein 6.8 (6.5-8.0) g/dL Albumin 4.0 (3.5-5.0) g/dL Lipase 28 (8-78) U/L Urine Color Urine Appearance Urine pH (5.0-9.0) Ur Specific [place] (1.005-1.025) Urine Protein (Neg-Trace) mg/dL Urine Glucose (UA) (Negative) mg/dL Urine Ketones (Negative) mg/dL Urine Blood (Negative) Urine Nitrite (Negative) Ur Leukocyte Esterase (Negative) Urine RBC (0-2) /HPF Urine WBC (0-5) /HPF Ur Squamous Epith Cells (0-2) /HPF Urine Bacteria (None Seen) Hyaline Casts (0-2) /LPF COVID-19 (HEMA) (Negative) COVID-19 Clin Com 11/27/22 11/27/22 Range/Units 10:13 10:13 WBC (4.8-10.8) X10*3/uL RBC (4.20-5.50) X10*6/uL Hgb (12.0-16.0) g/dl Hct (37.0-47.0) % MCV (80.0-98.0) fL MCH (27.0-33.0) pg MCHC (31.0-35.0) g/dl RDW (11.0-16.0) % Plt Count (160-400) X10*3/uL MPV (9.4-12.3) fL Immature Gran % (Auto) (0.0-0.4) % Neut % (Auto) (45-73) % Lymph % (Auto) (20-40) % [place] % (Auto) (2-11) % Eos % (Auto) (0-4) % Baso % (Auto) (0-2) % Lymph # (Auto) (1.2-4.9) X10*3/uL [place] # (Auto) (0.1-1.2) X10*3/uL Eos # (Auto) (0.0-0.4) X10*3/uL Baso # (Auto) (0.0-0.2) X10*3/uL Abs Immat Gran (auto) (0.00-0.03) X10*3/uL Absolute Neuts (auto) (2.0-8.3) x10*3/uL Absolute Nucleated RBC (0.0-0.012) X10*3/uL Nucleated RBC % (auto) (0.0-0.2) /100WBC Sodium (135-145) mmol/L Potassium (3.3-5.1) mmol/L Chloride (96-108) mmol/L Carbon Dioxide (22-29) mmol/L Anion Gap (12-20) BUN (9-16) mg/dL Creatinine (0.5-1.4) mg/dL Estim Creat Clear Calc Estimated GFR Random Glucose (60-115) mg/dL Calcium (8.4-10.2) mg/dL Total Bilirubin (0.0-1.0) mg/dL AST (5-31) U/L ALT (0-31) U/L Alkaline Phosphatase (39-117) U/L Troponin I High Sens (<3.5-17.0) ng/L Total Protein (6.5-8.0) g/dL Albumin (3.5-5.0) g/dL Lipase (8-78) U/L Urine Color Yellow Urine Appearance Clear Urine pH 5.5 (5.0-9.0) Ur Specific [place] 1.020 (1.005-1.025) Urine Protein Negative (Neg-Trace) mg/dL Urine Glucose (UA) Negative (Negative) mg/dL Urine Ketones Negative (Negative) mg/dL Urine Blood Trace H (Negative) Urine Nitrite Negative (Negative) Ur Leukocyte Esterase Trace H (Negative) Urine RBC 0-2 (0-2) /HPF Urine WBC 0-5 (0-5) /HPF Ur Squamous Epith Cells 0-2 (0-2) /HPF Urine Bacteria None Seen (None Seen) Hyaline Casts 0-2 (0-2) /LPF COVID-19 (HEMA) Negative (Negative) COVID-19 Clin Com See Note Independent Interpretation I performed an independent interpretation of an: EKG (Normal sinus rhythm heart rate 70, normal intervals, no acute ST elevations or depressions), Plain X-Ray (Chest no acute cardiopulmonary disease) and CT Scan (no obvious acute findings) Radiology Impression Discussion of test interpretation with radiology: I have reviewed the radiologist's reading. (IMPRESSION: 1. Small to moderate hiatal hernia is mildly increased without significant change. 2. Moderate mural thickening in the urinary bladder may be secondary to a combination of incomplete distention and chronic changes, but is increased compared to the 2021 study. Correlate with urinary sym) Independent Historian Clinical information obtained from an independent historian. History obtained from or confirmed by: EMS Tests considered The following testing was considered but not selected: Abdominal x-ray Prescription Management I considered prescription management with: Pain Medication Chronic Conditions Patient?s care impacted by: Hypertension Discharge Plan Discharge Clinical Impression: Dehydration, Abdominal pain, Nausea vomiting and diarrhea, Bladder wall thickening Patient Disposition: Home, Self-Care Instructions: Dehydration (ED), Acute Nausea and Vomiting (ED), Abdominal Pain (ED) Prescriptions: New ondansetron 4 mg tablet,disintegrating 4 mg PO Q8H PRN (Reason: nausea and vomiting) Qty: 10 0RF No Action sertraline 100 mg tablet 200 mg PO DAILY montelukast 10 mg tablet 1 tab PO BEDTIME benazepril 10 mg tablet 1 tab PO QAM atorvastatin 80 mg Tablet 80 mg PO BEDTIME Qty: 30 0RF acetaminophen [Tylenol Extra Strength] 500 mg tablet 500 mg PO Q6H PRN (Reason: fever or pain) Qty: 14 0RF cyclobenzaprine 5 mg tablet 5 mg PO Q8H PRN (Reason: pain (scale score 7-10)) 5 Days Qty: 14 0RF metoclopramide HCl [Reglan] 5 mg tablet 5 mg PO Q6H PRN (Reason: nausea and vomiting) Qty: 10 0RF calcium carbonate-vitamin D3 600 mg-5 mcg (200 unit) tablet 1 tab PO BID fluticasone propion-salmeterol 500-50 mcg/dose blister with device 1 puff inhalation BID Certavite-Antioxidant 18-400 mg-mcg tablet 1 tab PO DAILY Incruse Ellipta 62.5 mcg/actuation blister with device 1 puff inhalation DAILY isosorbide mononitrate 60 mg tablet extended release 24 hr 1 tab PO DAILY trazodone 100 mg tablet 200 mg PO BEDTIME omeprazole 20 mg capsule,delayed release(DR/EC) 1 cap PO DAILY trazodone 100 mg tablet 100 mg PO BEDTIME PRN (Reason: Insomnia) Rx Instructions: If addition to 200 mg if cannot sleep fluticasone propionate 50 mcg/actuation [place],Suspension 1 spray INTRANASAL DAILY PRN (Reason: Allergy Symptoms) Rx Instructions: administer into each nostril heparin(porcine) in 0.45% NaCl 25,000 unit/250 mL Parenteral Solution 25,000 unit continuous IV infusion .Q0M Qty: 6000 0RF aspirin 81 mg Tablet,Chewable 81 mg PO DAILY Qty: 1 0RF heparin (porcine) 5,000 unit/mL Solution 2,100 unit IVPUSH PROTOCOL BOLUS PRN (Reason: 40 Unit/Kg - Heparin Protocol) Qty: 1 0RF heparin (porcine) 5,000 unit/mL Solution 4,100 unit IVPUSH PROTOCOL BOLUS PRN (Reason: 80 Unit/Kg - Heparin Protocol) Qty: 1 0RF morphine 4 mg/mL Syringe 2 mg IVPUSH Q4H PRN (Reason: Pain, Severe (Pain Scale 7-10)) Qty: 10 0RF Protocol: Hold for RR < HOLD and contact provider for RR < (bpm): 12 Rx Instructions: Partial Fill upon patient request. ondansetron HCl (PF) 4 mg/2 mL Solution 4 mg IVPUSH Q8H PRN (Reason: Nausea And Vomiting) Qty: 10 0RF metoprolol tartrate 25 mg tablet 12.5 mg PO Q6H Qty: 1 0RF Print Language: Bur[place]ian
[2022-11-27 10:29] LABS: Appearance Urine Clear; Color Urine Yellow; Glucose Urine UA Negative (Negative); Leukocyte Esterase Urine Trace (Negative); Nitrite Urine Negative (Negative); PH 5.5 (5.0-9.0); UMIC TRIGGER UACC YES; Urine Blood Trace (Negative); Urine Ketones Negative (Negative); Urine Protein Negative (Neg-Trace)
[2022-11-27 10:32] LABS: Bacteria Urine None Seen (None Seen); Hyaline Casts Urine 0-2 /LPF (0-2); RBC Urine 0-2 /HPF (0-2); Squamous Epithelial Cell Urine 0-2 /HPF (0-2); WBC Urine 0-5 /HPF (0-5)
[2022-11-27 10:40] LABS: Alanine Aminotransferase 16 U/L (0-31); Alkaline Phosphatase 148 U/L (39-117); Anion Gap 12 (12-20); Aspartate Amino Transferase 21 U/L (5-31); Blood Urea Nitrogen 21 mg/dL (9-16); Calcium 9.3 mg/dL (8.4-10.2); Carbon Dioxide 28 mmol/L (22-29); Chloride 107 mmol/L (96-108); Creatinine Clr Calc Pharmacy 35.1; Estimated Glomerular Filt Rate 54; Glucose Random 150 mg/dL (60-115); Lipase 28 U/L (8-78); Potassium 4.6 mmol/L (3.3-5.1); Sodium 142 mmol/L (135-145); Total Protein 6.8 g/dL (6.5-8.0)
[2022-11-27 10:50] LABS: COVID-19 Test Negative (Negative); IDNOW Serial# 16C4AD1C
[2022-11-27 11:21] VITALS: BP 136/64; PULSE 74; RESP 13; TEMP 36.6; O2SAT 95
[2022-11-27] MEDS: iohexoL 350 MG/ML 100 ML INFUS..BTL 85 ML IV (11:21)
[2022-11-27] MEDS: ondansetron HCL 4 MG/2 ML VIAL IVPUSH (11:34)
[2022-11-27] MEDS: Famotidine/PF 20 MG/2 ML VIAL IVPUSH (11:34)
[2022-11-27 13:49] VITALS: BP 133/80; PULSE 80; RESP 24; TEMP 36.8; O2SAT 95
== END 2022-11-27 14:34 | disposition home or self-care (01) ==
PROVIDERS: Emergency Provider Emergency Medicine; PCP Family Medicine
DX: E86.0 Dehydration (principal); R10.9 Unspecified abdominal pain; R11.2 Nausea with vomiting, unspecified; R19.7 Diarrhea, unspecified
CPT/HCPCS: 36415; 71046; 74177; 80053; 81001; 83690; 84484; 85025; 87635; 93005; 96374; 96375; 99284; J2405; Q9967

== ENCOUNTER 2022-12-30 07:56 | Emergency (ER) | payer OTHER, SELFPAY ==
--- NOTE | ~2022-12-30 | CT_ITS ---
EXAMINATION: CT ABDOMEN AND PELVIS WITH CONTRAST CLINICAL INFORMATION: Left lower quadrant suprapubic tenderness to palpation. COMPARISON: November 27, 2022 and December 29, 2021 TECHNIQUE: Multidetector volumetric images were obtained from the superior aspect of the liver through the pubic symphysis following administration 85 mL of Omnipaque 350 intravenous contrast. Sagittal and coronal reformatted images were obtained on the technologist's workstation. Oral contrast: No This CT examination was performed using dose optimization techniques as appropriate, variously including the following: *Automated exposure control *Adjustment of mA and/or kV according to patient size (this includes techniques or standardized protocols for targeted exams where dose is matched to indication/reason for exam; i.e. extremities or head) *Use of iterative reconstruction technique DLP: 360 mGy-cm FINDINGS: LUNG BASES: No confluent parenchymal disease is identified. No pleural or pericardial effusion. Small hiatal hernia noted. LIVER, GALLBLADDER, AND BILIARY TREE: No focal hepatic mass is seen. There is some mild intrahepatic bile duct prominence/dilatation. Patient status post cholecystectomy with prominent common hepatic and common bile duct with the common bile duct measuring approximately 1.2 cm in the region of the pancreatic head. Appearance is similar to study of November 27, 2022 and December 29, 2021 no radiopaque calculus is seen within the distal common bile duct. Status post cholecystectomy. PANCREAS: Unremarkable. No abnormal mass or peripancreatic inflammatory change. No pancreatic duct dilatation. SPLEEN: Unremarkable. ADRENAL GLANDS: Unremarkable. KIDNEYS AND URETERS: The kidneys are normal in size, shape, and attenuation. No hydronephrosis, hydroureter, or calculi seen. No perinephric stranding. Extrarenal pelves seen bilaterally. There is some rotation of the left kidney with collecting system anterolaterally directed. BLADDER: No pericholecystic fat stranding is identified. No significant wall narrowing is seen. No bladder calculi seen. GASTROINTESTINAL TRACT: No dilated loops of large or small bowel are evident. No free air there is a small amount of free fluid seen about the right lower pelvis. Small hiatal hernia. No pericolonic inflammatory change. The appendix is visualized and appears unremarkable. ABDOMINAL WALL: No significant hernia is appreciated. LYMPH NODES: No lymphadenopathy appreciated. VASCULAR: Unremarkable. PELVIC VISCERA: No abnormal pelvic mass appreciated. OSSEOUS STRUCTURES: No suspicious destructive bony lesion identified. There is degenerative disc disease seen most prominent at the L5-S1 level with facet arthropathy. CT/CT abdomen pelvis w IV con IMPRESSION: A small amount of free fluid about the pelvis. Mild intrahepatic bile duct prominence. No evidence of obstructive uropathy. No evidence of acute diverticulitis. Small hiatal hernia. Fleischner guidelines were followed.
[2022-12-30 08:00] VITALS: BP 151/65; PULSE 64; RESP 16; TEMP 36.3; O2SAT 95; BMI 22.2
[2022-12-30 08:32] VITALS: BP 157/88; PULSE 60; RESP 18; TEMP 36.6; O2SAT 94
--- NOTE | 2022-12-30 09:04 | ED_ITS ---
HPI - Back Pain/Injury General Chief Complaint: Back Pain/Injury Stated Complaint: Back Pain Time Seen by Provider: 12/30/22 09:03 Source: patient Mode of arrival: ambulatory History of Present Illness HPI Narrative: 77-year-old female the past medical history of asthma, depression, diabetes, GERD, HLD, HTN, NSTEMI, pancreatitis, PE, presenting to the ED complaining of acute on chronic right hip/buttock pain radiating to lower abdomen and RLE x 1 month. Admits was evaluated in our ED on 11/27 for similar symptoms, states pain has been worsening since. Denies nausea/vomiting, diarrhea/constipation, dysuria/hematuria, urinary incontinence retention, fever, injury/trauma or fall. MD elicited complaint: back pain Related Data Home Medications Medication Instructions Recorded Confirmed benazepril 10 mg tablet 1 tab PO QAM 11/20/20 08/27/22 montelukast 10 mg tablet 1 tab PO BEDTIME 11/20/20 08/27/22 sertraline 100 mg tablet 200 mg PO DAILY 11/20/20 08/27/22 calcium carbonate 600 mg-vitamin 1 tab PO BID 08/27/22 08/27/22 D3 5 mcg (200 unit) tablet fluticasone 500 mcg-salmeterol 50 1 puff inhalation BID 08/27/22 08/27/22 mcg/dose blistr powdr for inhalation fluticasone propionate 50 1 spray intranasal DAILY PRN 08/27/22 08/27/22 mcg/actuation nasal Allergy Symptoms spray,suspension isosorbide mononitrate 60 mg 1 tab PO DAILY 08/27/22 08/27/22 tablet,extended release 24 hr multivitamin-ferrous 1 tab PO DAILY 08/27/22 08/27/22 fumarate-folic acid 18 mg-400 mcg tablet (Certavite-Antioxidant) omeprazole 20 mg capsule,delayed 1 cap PO DAILY 08/27/22 08/27/22 release trazodone 100 mg tablet 100 mg PO BEDTIME PRN Insomnia 08/27/22 08/27/22 trazodone 100 mg tablet 200 mg PO BEDTIME 08/27/22 08/27/22 umeclidinium 62.5 mcg/actuation 1 puff inhalation DAILY 08/27/22 08/27/22 blister powder for inhalation (Incruse Ellipta) Previous Rx's Medication Instructions Recorded atorvastatin 80 mg tablet 80 mg PO BEDTIME #30 tabs 05/12/21 acetaminophen 500 mg tablet 500 mg PO Q6H PRN fever or pain 04/22/22 (Tylenol Extra Strength) #14 tabs cyclobenzaprine 5 mg tablet 5 mg PO Q8H PRN pain (scale score 04/22/22 7-10) 5 days #14 tabs metoclopramide HCl 5 mg tablet 5 mg PO Q6H PRN nausea and 08/06/22 (Reglan) vomiting #10 tabs aspirin 81 mg chewable tablet 81 mg PO DAILY #1 tab 08/28/22 heparin (porcine) 25,000 unit/250 25,000 unit (250 mL) continuous IV 08/28/22 mL in 0.45 % sodium chloride IV infusion .Q0M #6,000 mL soln heparin (porcine) 5,000 unit/mL 2,100 unit (0.42 mL) IVPUSH 08/28/22 injection solution PROTOCOL BOLUS PRN 40 Unit/Kg - Heparin Protocol #1 mL heparin (porcine) 5,000 unit/mL 4,100 unit (0.82 mL) IVPUSH 08/28/22 injection solution PROTOCOL BOLUS PRN 80 Unit/Kg - Heparin Protocol #1 mL metoprolol tartrate 25 mg tablet 12.5 mg PO Q6H #1 tab 08/28/22 morphine 4 mg/mL intravenous 2 mg IVPUSH Q4H PRN Pain, Severe 08/28/22 syringe (Pain Scale 7-10) #10 mL ondansetron HCl (PF) 4 mg/2 mL 4 mg (2 mL) IVPUSH Q8H PRN Nausea 08/28/22 injection solution And Vomiting #10 mL ondansetron 4 mg disintegrating 4 mg PO Q8H PRN nausea and 11/27/22 tablet vomiting #10 tabs acetaminophen 500 mg tablet 500 mg PO Q6H PRN fever or pain 12/30/22 (Tylenol Extra Strength) #14 tabs cyclobenzaprine 5 mg tablet 5 mg PO Q8H PRN pain (scale score 12/30/22 7-10) 5 days #14 tabs lidocaine 5 % topical patch 1 patch topical DAILY PRN pain #30 12/30/22 (Lidoderm) ea naproxen 500 mg tablet 500 mg PO BID PRN pain 7 days #20 0412/23 tabs Allergies Allergy/AdvReac Type Severity Reaction Status Date / Time No Known Allergies Allergy Verified 12/30/22 08:07 Review of Systems Review of Systems: Constitutional: No Fever, No Chills, No Night Sweats, No Fatigue, No Malaise ENT/Mouth: No Ear Pain, No Nasal Congestion, No sore throat, No Rhinorrhea, No Swallowing Difficulty Eyes: No Eye Pain, No Swelling, No Redness, No Vision Changes Cardiovascular: No Chest Pain, No SOB, No Edema, No Palpitations Respiratory: No Cough, No Sputum, No Dyspnea Gastrointestinal: No Nausea, No Vomiting, No Diarrhea, No Constipation, + Abdominal pain Genitourinary: No irregular bleeding, No Dysuria, No Urinary Frequency, No Hematuria, No Urinary Incontinence/retention, No Urgency, No Flank Pain Musculoskeletal: + joint pain, No Myalgias, No Joint Swelling Skin: No Skin Lesions, No rash Neuro: No Weakness, No Numbness, No Paresthesias, No Loss of Consciousness Yes all other systems are reviewed and are negative Constitutional: Constitutional: Reports as per [facility] Past Medical History Attestation statement: The following information was validated with the patient. Medical History Aortic insufficiency Asthma Depression Diabetes GERD (gastroesophageal reflux disease) High cholesterol Hypertension Multinodular goiter (nontoxic) NSTEMI (non-ST elevated myocardial infarction) Pancreatitis Pulmonary embolism Surgical History No history of previous surgery Family History Family History Father Hypertension Heart disease Mother Hypertension Heart disease Social History Social History Household Members: Family and Other Household Members Other:: daughter is stripper printed circuit boards Housing: Apartment Do you presently have visiting nurse or other home services: No Alcohol intake: never Patient Tobacco Use Status: Never used Tobacco Smoked in Last 30 Days: No Second Hand Smoke Exposure: No Use of substances other than those prescribed or required for medical reasons: No Advance Directives: No Advance Directives Information Provided: Yes service: No Current occupational status: unemployed and disabled Physical Exam Vital Signs: Vital Signs: Last Vital Signs Temp 98 F 12/30/22 08:32 Pulse 69 12/30/22 10:32 Resp 18 12/30/22 11:01 BP 155/77 H 12/30/22 10:32 Pulse Ox 94 12/30/22 08:32 O2 Del Method Room Air 12/30/22 10:32 BMI result Body Mass Index 22.2 Const: General: cooperative, healthy appearing, no acute distress, alert and awake Orientation/consciousness: patient oriented x3 Limitations: no limitations HEENT: Head: Yes normal to inspection and Yes atraumatic Ears: hearing grossly normal bilaterally General nose exam: Normal external nose present Face and sinus: Yes normal facial exam Eyes: General: appearance normal, both eyes and all related structures EOM: EOMs intact bilaterally Neck: Neck: Yes normal visual inspection and Yes no meningeal signs Resp: Effort & Inspection: normal respiratory effort and no respiratory distress Auscultation: clear to auscultation bilaterally Cardio: Rate: regular rate Heart sounds: S1 normal heart sound present and S2 normal heart sound present GI: Inspection: Yes normal to inspection Palpation (GI): Soft to palpation, Tenderness to palpation present (GI) (> LLQ) in the LLQ, in the RLQ and suprapubicly; with no rebound tenderness, no guarding and not rigid : General: Yes no CVA tenderness Back/Spine/Pelvis: Other: No midline thoracic/lumbar spinous tenderness/step-off or deformity. + right lower lumbar MSK/buttock reproducible tenderness, no rash/erythema or ecchymosis Back: no CVA tenderness Skin: Rashes: no rashes Wounds: no wounds Neuro: Other: Strength intact throughout. No saddle anesthesia. Sensation intact to light touch. Neurovascular intact distally General: patient oriented x3, tone normal and no meningeal signs Gait exam (Neuro): Normal gait present Extrem: Other: Right hip without palpable tenderness or visible deformity. Passive ROM intact without pain. NV intact distally General: Yes normal to inspection Course Course Course Narrative: -1241--chronic leukopenia 4.6. Labs otherwise reassuring -UA not infected CT abdomen pelvis w IV con IMPRESSION: A small amount of free fluid about the pelvis. ? Mild intrahepatic bile duct prominence. ? No evidence of obstructive uropathy. ? No evidence of acute diverticulitis. ? Small hiatal hernia.? ? Fleischner guidelines were followed. Results discussed with patient recommended close PCP/GI follow-up. Discussed worrisome signs and symptoms and strict return precautions, and when to return to the emergency department. They verbalized understanding and feel safe for discharge at this time. Medications Administered Discontinued Medications Generic Name Dose Route Start Last Admin Trade Name Sania PRN Reason Stop Dose Admin Iohexol 85 ml 12/30/22 10:35 12/30/22 10:35 Iohexol 350 Mg/Ml 100 Ml Infus..Btl IV 12/30/22 10:36 85 ml ONCE ONE Administration Ketorolac Tromethamine 15 mg 12/30/22 10:32 12/30/22 10:35 Ketorolac Tromethamine 15 Mg/Ml Vial IVPUSH 12/30/22 10:33 15 mg ONCE ONE Administration Medical Decision Making Medical Decision Making [facility] Narrative: 77-year-old female the past medical history of asthma, depression, diabetes, GERD, HLD, HTN, NSTEMI, pancreatitis, PE, presenting to the ED complaining of acute on chronic right hip/buttock pain radiating to lower abdomen and RLE x 1 month. On exam vital signs stable, NAD, nontoxic appearing, no midline spinous tenderness throughout or red flag symptoms. Reproducible right lower lumbar/MSK tenderness, abdomen soft with lower ttp, no rebound or guarding, no CVAT. Labs and CT reviewed from 11/27 which showed hiatal hernia and urinary bladder thickening, otherwise unremarkable. Concern for osteoarthritis vs MSK pain/sciatica and radiculopathy vs hernia vs UTI vs appendicitis/diverticulitis. Low suspicion for cauda equina/cord compression. Plan: Labs, UA, CT AP, pain control Please refer to course for remaining clinical decision making, interpretation of labs/imaging results, and discussions with consultants and/or family members. Differential Diagnosis Differential Diagnoses: The differential diagnosis associated with the presentation includes As above Admission/Observation Consideration of admission/observation: Escalation of care including admission/observation considered Lab Data [facility] Lab Attestation statement: I reviewed the patient's lab results. 12/30/22 09:32 12/30/22 09:32 Labs: Lab Results 12/30/22 12/30/22 12/30/22 Range/Units 09:32 09:32 09:32 WBC 4.6 L (4.8-10.8) X10*3/uL RBC 4.90 (4.20-5.50) X10*6/uL Hgb 13.8 (12.0-16.0) g/dl Hct 43.7 (37.0-47.0) % MCV 89.2 (80.0-98.0) fL MCH 28.2 (27.0-33.0) pg MCHC 31.6 (31.0-35.0) g/dl RDW 12.9 (11.0-16.0) % Plt Count 224 (160-400) X10*3/uL MPV 11.0 (9.4-12.3) fL Immature Gran % (Auto) 0.4 (0.0-0.4) % Neut % (Auto) 42.5 L (45-73) % Lymph % (Auto) 35.4 (20-40) % [place] % (Auto) 12.8 H (2-11) % Eos % (Auto) 7.8 H (0-4) % Baso % (Auto) 1.1 (0-2) % Lymph # (Auto) 1.6 (1.2-4.9) X10*3/uL [place] # (Auto) 0.6 (0.1-1.2) X10*3/uL Eos # (Auto) 0.4 (0.0-0.4) X10*3/uL Baso # (Auto) 0.1 (0.0-0.2) X10*3/uL Abs Immat Gran (auto) 0.02 (0.00-0.03) X10*3/uL Absolute Neuts (auto) 2.0 (2.0-8.3) x10*3/uL Absolute Nucleated RBC 0.000 (0.0-0.012) X10*3/uL Nucleated RBC % (auto) 0.0 (0.0-0.2) /100WBC Sodium 141 (135-145) mmol/L Potassium 4.7 (3.3-5.1) mmol/L Chloride 107 (96-108) mmol/L Carbon Dioxide 29 (22-29) mmol/L Anion Gap 10 L (12-20) BUN 16 (9-16) mg/dL Creatinine 0.86 (0.5-1.4) mg/dL Estim Creat Clear Calc 39.3 Estimated GFR > 60 Random Glucose 103 (60-115) mg/dL Calcium 9.5 (8.4-10.2) mg/dL Total Bilirubin 0.9 (0.0-1.0) mg/dL Direct Bilirubin 0.3 (0.0-0.5) mg/dL AST 26 (5-31) U/L ALT 19 (0-31) U/L Alkaline Phosphatase 147 H (39-117) U/L Total Protein 6.9 (6.5-8.0) g/dL Albumin 4.0 (3.5-5.0) g/dL Lipase 32 (8-78) U/L Urine Color Yellow Urine Appearance Clear Urine pH 6.5 (5.0-9.0) Ur Specific [place] 1.015 (1.005-1.025) Urine Protein Negative (Neg-Trace) mg/dL Urine Glucose (UA) Negative (Negative) mg/dL Urine Ketones Negative (Negative) mg/dL Urine Blood Negative (Negative) Urine Nitrite Negative (Negative) Ur Leukocyte Esterase Small (1+) H (Negative) Urine RBC 0-2 (0-2) /HPF Urine WBC 0-5 (0-5) /HPF Ur Squamous Epith Cells 0-2 (0-2) /HPF Urine Bacteria None Seen (None Seen) Hyaline Casts 0-2 (0-2) /LPF Radiology Impression Discussion of test interpretation with radiology: I have reviewed the radiologist's reading. External Record Review External record reviewed: Inpatient record, Office record, Outpatient record, Prior outpatient labs, Prior outpatient radiology, Primary care record and Outside ED record Discharge Plan Discharge Clinical Impression: Lumbar radiculopathy, Abdominal pain Patient Disposition: Home, Self-Care Instructions: Lumbar Radiculopathy (ED), Abdominal Pain (ED) Additional Instructions: Your blood work was reassuring. Your urine is not infected. Her CT scan shows a small amount of free fluid in her pelvis. Otherwise no acute infection/cause of her symptoms I suspect some of your symptoms are due to sciatica. Please have close follow- up with your doctor and Gastroenterology Flexeril is a muscle relaxer, take at night as it makes you drowsy, do not drive, drink alcohol, or operate machinery while taking it Naproxen as an anti-inflammatory / pain medication, take with food Lidoderm patches are numbing patches, apply to painful area In addition take Tylenol at home If symptoms persist or worsen, pain becomes unbearable, you developed urinary retention or incontinence, or weakness return to the ED Hernandez an?lisis de kenney fue tranquilizador. Hernandez orina no est? infectada. Hernandez tomograf?a computarizada muestra yenifer katy?a cantidad de l?quido zach en la pelvis. De lo contrario, no hay infecci?n aguda/causa de shahida s?ntomas Sospecho que algunos de shahida s?ntomas se deben a la ci?cookie. Tenga un seguimiento cercano con hernandez m?dico y Gastroenterolog?a. Flexeril es un relajante muscular, t?kimberly por la noche ya que te adormece, no conduzcas, bebas alcohol ni operes maquinaria mientras lo yari. Naproxeno angela medicamento antiinflamatorio/analg?sico, t?cabrera con alimentos Los parches de Lidoderm son parches anest?sicos, se aplican en el ?claude dolorida Adem?s melanie Tylenol en casa Si los s?ntomas persisten o empeoran, el dolor se vuelve insoportable, desarroll? retenci?n urinaria o incontinencia, o debilidad, regrese al servicio de urgencias. Prescriptions: New acetaminophen [Tylenol Extra Strength] 500 mg tablet 500 mg PO Q6H PRN (Reason: fever or pain) Qty: 14 0RF lidocaine [Lidoderm] 5 % adhesive patch,medicated 1 patch topical DAILY MDD remove after 12 hours PRN (Reason: pain) Qty: 30 0RF Rx Instructions: leave on most painful area for up to 12 hrs naproxen 500 mg tablet 500 mg PO BID PRN (Reason: pain) 7 Days Qty: 20 0RF cyclobenzaprine 5 mg tablet 5 mg PO Q8H PRN (Reason: pain (scale score 7-10)) 5 Days Qty: 14 0RF No Action sertraline 100 mg tablet 200 mg PO DAILY montelukast 10 mg tablet 1 tab PO BEDTIME benazepril 10 mg tablet 1 tab PO QAM atorvastatin 80 mg Tablet 80 mg PO BEDTIME Qty: 30 0RF acetaminophen [Tylenol Extra Strength] 500 mg tablet 500 mg PO Q6H PRN (Reason: fever or pain) Qty: 14 0RF cyclobenzaprine 5 mg tablet 5 mg PO Q8H PRN (Reason: pain (scale score 7-10)) 5 Days Qty: 14 0RF metoclopramide HCl [Reglan] 5 mg tablet 5 mg PO Q6H PRN (Reason: nausea and vomiting) Qty: 10 0RF ondansetron 4 mg tablet,disintegrating 4 mg PO Q8H PRN (Reason: nausea and vomiting) Qty: 10 0RF calcium carbonate-vitamin D3 600 mg-5 mcg (200 unit) tablet 1 tab PO BID fluticasone propion-salmeterol 500-50 mcg/dose blister with device 1 puff inhalation BID Certavite-Antioxidant 18-400 mg-mcg tablet 1 tab PO DAILY Incruse Ellipta 62.5 mcg/actuation blister with device 1 puff inhalation DAILY isosorbide mononitrate 60 mg tablet extended release 24 hr 1 tab PO DAILY trazodone 100 mg tablet 200 mg PO BEDTIME omeprazole 20 mg capsule,delayed release(DR/EC) 1 cap PO DAILY trazodone 100 mg tablet 100 mg PO BEDTIME PRN (Reason: Insomnia) Rx Instructions: If addition to 200 mg if cannot sleep fluticasone propionate 50 mcg/actuation [place],Suspension 1 spray INTRANASAL DAILY PRN (Reason: Allergy Symptoms) Rx Instructions: administer into each nostril heparin(porcine) in 0.45% NaCl 25,000 unit/250 mL Parenteral Solution 25,000 unit continuous IV infusion .Q0M Qty: 6000 0RF aspirin 81 mg Tablet,Chewable 81 mg PO DAILY Qty: 1 0RF heparin (porcine) 5,000 unit/mL Solution 2,100 unit IVPUSH PROTOCOL BOLUS PRN (Reason: 40 Unit/Kg - Heparin Protocol) Qty: 1 0RF heparin (porcine) 5,000 unit/mL Solution 4,100 unit IVPUSH PROTOCOL BOLUS PRN (Reason: 80 Unit/Kg - Heparin Protocol) Qty: 1 0RF morphine 4 mg/mL Syringe 2 mg IVPUSH Q4H PRN (Reason: Pain, Severe (Pain Scale 7-10)) Qty: 10 0RF Protocol: Hold for RR < HOLD and contact provider for RR < (bpm): 12 Rx Instructions: Partial Fill upon patient request. ondansetron HCl (PF) 4 mg/2 mL Solution 4 mg IVPUSH Q8H PRN (Reason: Nausea And Vomiting) Qty: 10 0RF metoprolol tartrate 25 mg tablet 12.5 mg PO Q6H Qty: 1 0RF Referrals: Tiffany Kent MD [Primary Care Provider] - 3 days Interventions: ED Discharge Assessment Last Done: 12/30/22 12:53 Discharge Date/Time: 12/30/22 12:54 Print Language: Japanese
[2022-12-30 09:37] LABS: MANUAL DIFF FLAG NO
[2022-12-30 09:42] LABS: Appearance Urine Clear; Basophils Absolute Auto 0.1 X10*3/uL (0.0-0.2); Basophils Percent Auto 1.1 % (0-2); Color Urine Yellow; Eosinophils Absolute Auto 0.4 X10*3/uL (0.0-0.4); Eosinophils Percent Auto 7.8 % (0-4); Glucose Urine UA Negative (Negative); Hematocrit 43.7 % (37.0-47.0); Hemoglobin 13.8 g/dl (12.0-16.0); Imm Gran Abs Auto 0.02 X10*3/uL (0.00-0.03); Imm Gran Pct Auto 0.4 % (0.0-0.4); Leukocyte Esterase Urine Small (1+) (Negative); Lymphocytes Absolute Auto 1.6 X10*3/uL (1.2-4.9); Lymphocytes Percent Auto 35.4 % (20-40); Mean Corpuscular HGB Conc 31.6 g/dl (31.0-35.0); Mean Corpuscular Hemoglobin 28.2 pg (27.0-33.0); Mean Corpuscular Volume 89.2 fL (80.0-98.0); Monocytes Absolute Auto 0.6 X10*3/uL (0.1-1.2); Monocytes Percent Auto 12.8 % (2-11); Neutrophils Percent Auto 42.5 % (45-73); Nitrite Urine Negative (Negative); PH 6.5 (5.0-9.0); Platelet Count 224 X10*3/uL (160-400); Red Cell Distribution Width 12.9 % (11.0-16.0); Specific Gravity - Urine 1.015 (1.005-1.025); UMIC TRIGGER UACC YES; Urine Blood Negative (Negative); Urine Ketones Negative (Negative); Urine Protein Negative (Neg-Trace); White Blood Count 4.6 X10*3/uL (4.8-10.8)
[2022-12-30 09:54] LABS: Alanine Aminotransferase 19 U/L (0-31); Alkaline Phosphatase 147 U/L (39-117); Anion Gap 10 (12-20); Aspartate Amino Transferase 26 U/L (5-31); Bilirubin Direct 0.3 mg/dL (0.0-0.5); Bilirubin Total 0.9 mg/dL (0.0-1.0); Blood Urea Nitrogen 16 mg/dL (9-16); Calcium 9.5 mg/dL (8.4-10.2); Carbon Dioxide 29 mmol/L (22-29); Chloride 107 mmol/L (96-108); Creatinine Clr Calc Pharmacy 39.3; Estimated Glomerular Filt Rate > 60; Glucose Random 103 mg/dL (60-115); Lipase 32 U/L (8-78); Potassium 4.7 mmol/L (3.3-5.1); Sodium 141 mmol/L (135-145); Total Protein 6.9 g/dL (6.5-8.0)
[2022-12-30 09:55] LABS: Bacteria Urine None Seen (None Seen); Hyaline Casts Urine 0-2 /LPF (0-2); RBC Urine 0-2 /HPF (0-2); Squamous Epithelial Cell Urine 0-2 /HPF (0-2); UACC Culture Trigger YES; WBC Urine 0-5 /HPF (0-5)
[2022-12-30 10:32] VITALS: BP 155/77; PULSE 69; RESP 16
--- NOTE | 2022-12-30 10:33 | PC.NURSE ---
PT RETURNED FROM CT AMBULATED TO BR, GAIT STEADY REPORTS 06/29 LOW BACK PAIN PROVIDER NOTIFIED
[2022-12-30] MEDS: iohexoL 350 MG/ML 100 ML INFUS..BTL 85 ML IV (10:35)
[2022-12-30] MEDS: Ketorolac Tromethamine 15 MG/ML VIAL IVPUSH (10:35)
[2022-12-30 11:01] VITALS: RESP 18
== END 2022-12-30 12:54 | disposition home or self-care (01) ==
PROVIDERS: Physician Assistant; Emergency Provider Emergency Medicine; PCP Family Medicine
DX: M54.50 Low back pain, unspecified (principal); M25.551 Pain in right hip; M54.16 Radiculopathy, lumbar region; R10.9 Unspecified abdominal pain; E11.9 Type 2 diabetes mellitus without complications; I10 Essential (primary) hypertension; K21.9 Gastro-esophageal reflux disease without esophagitis; J45.909 Unspecified asthma, uncomplicated
CPT/HCPCS: 36415; 74177; 80048; 80076; 81001; 83690; 85025; 87086; 96374; 99284; J1885; Q9967

== ENCOUNTER 2023-02-10 07:55 | Emergency (ER) | payer OTHER, SELFPAY ==
--- NOTE | ~2023-02-10 | XR_ITS ---
EXAMINATION: XR CHEST CLINICAL INFORMATION: Cough, shortness of breath and fever COMPARISON: 11/27/2022 TECHNIQUE: 2 views of the chest were obtained. FINDINGS: No significant abnormality is noted involving the heart, lungs, mediastinum, bony thorax or soft tissues. XR/XR chest 2V IMPRESSION: Unremarkable examination.
[2023-02-10 07:59] VITALS: BP 152/74; PULSE 74; RESP 19; TEMP 36.6; O2SAT 94; BMI 21.7
--- NOTE | 2023-02-10 10:35 | ED.URI ---
HPI - URI/Sore Throat General Chief Complaint: Upper Respiratory Symptoms Stated Complaint: Head Pain Time Seen by Provider: 02/10/23 08:21 Source: patient and family Mode of arrival: ambulatory Limitations: language barrier ([place] Islander speaking only, legal administrative secretary used) History of Present Illness HPI Narrative: 78-year-old female who presents emergency department for evaluation of sore throat, cough, chest pain, shortness of breath. Patient states she has been sick for 1 week. She has a frequent cough which is productive of brown sputum. She states that she has pain in her chest when she coughs. She feels short of breath. She states that she had a fever over the past week. She denied chills. She feels congested. She denied shortness of breath or dyspnea on exertion. She denied nausea, vomiting or diarrhea. She denied myalgias arthralgias. Related Data Home Medications Medication Instructions Recorded Confirmed benazepril 10 mg tablet 1 tab PO QAM 11/20/20 08/27/22 montelukast 10 mg tablet 1 tab PO BEDTIME 11/20/20 08/27/22 sertraline 100 mg tablet 200 mg PO DAILY 11/20/20 08/27/22 calcium carbonate 600 mg-vitamin 1 tab PO BID 08/27/22 08/27/22 D3 5 mcg (200 unit) tablet fluticasone 500 mcg-salmeterol 50 1 puff inhalation BID 08/27/22 08/27/22 mcg/dose blistr powdr for inhalation fluticasone propionate 50 1 spray intranasal DAILY PRN 08/27/22 08/27/22 mcg/actuation nasal Allergy Symptoms spray,suspension isosorbide mononitrate 60 mg 1 tab PO DAILY 08/27/22 08/27/22 tablet,extended release 24 hr multivitamin-ferrous 1 tab PO DAILY 08/27/22 08/27/22 fumarate-folic acid 18 mg-400 mcg tablet (Certavite-Antioxidant) omeprazole 20 mg capsule,delayed 1 cap PO DAILY 08/27/22 08/27/22 release trazodone 100 mg tablet 100 mg PO BEDTIME PRN Insomnia 08/27/22 08/27/22 trazodone 100 mg tablet 200 mg PO BEDTIME 08/27/22 08/27/22 umeclidinium 62.5 mcg/actuation 1 puff inhalation DAILY 08/27/22 08/27/22 blister powder for inhalation (Incruse Ellipta) Previous Rx's Medication Instructions Recorded atorvastatin 80 mg tablet 80 mg PO BEDTIME #30 tabs 05/12/21 acetaminophen 500 mg tablet 500 mg PO Q6H PRN fever or pain 04/22/22 (Tylenol Extra Strength) #14 tabs cyclobenzaprine 5 mg tablet 5 mg PO Q8H PRN pain (scale score 04/22/22 7-10) 5 days #14 tabs metoclopramide HCl 5 mg tablet 5 mg PO Q6H PRN nausea and 08/06/22 (Reglan) vomiting #10 tabs aspirin 81 mg chewable tablet 81 mg PO DAILY #1 tab 08/28/22 heparin (porcine) 25,000 unit/250 25,000 unit (250 mL) continuous IV 08/28/22 mL in 0.45 % sodium chloride IV infusion .Q0M #6,000 mL soln heparin (porcine) 5,000 unit/mL 2,100 unit (0.42 mL) IVPUSH 08/28/22 injection solution PROTOCOL BOLUS PRN 40 Unit/Kg - Heparin Protocol #1 mL heparin (porcine) 5,000 unit/mL 4,100 unit (0.82 mL) IVPUSH 08/28/22 injection solution PROTOCOL BOLUS PRN 80 Unit/Kg - Heparin Protocol #1 mL metoprolol tartrate 25 mg tablet 12.5 mg PO Q6H #1 tab 08/28/22 morphine 4 mg/mL intravenous 2 mg IVPUSH Q4H PRN Pain, Severe 08/28/22 syringe (Pain Scale 7-10) #10 mL ondansetron HCl (PF) 4 mg/2 mL 4 mg (2 mL) IVPUSH Q8H PRN Nausea 08/28/22 injection solution And Vomiting #10 mL ondansetron 4 mg disintegrating 4 mg PO Q8H PRN nausea and 11/27/22 tablet vomiting #10 tabs acetaminophen 500 mg tablet 500 mg PO Q6H PRN fever or pain 12/30/22 (Tylenol Extra Strength) #14 tabs cyclobenzaprine 5 mg tablet 5 mg PO Q8H PRN pain (scale score 12/30/22 7-10) 5 days #14 tabs lidocaine 5 % topical patch 1 patch topical DAILY PRN pain #30 12/30/22 (Lidoderm) ea naproxen 500 mg tablet 500 mg PO BID PRN pain 7 days #20 12/30/22 tabs benzonatate 100 mg capsule 100 mg PO TID PRN cough 5 days #15 02/10/23 caps doxycycline hyclate 100 mg tablet 100 mg PO Q12H 7 days #14 tabs 02/10/23 Allergies Allergy/AdvReac Type Severity Reaction Status Date / Time No Known Allergies Allergy Verified 02/10/23 07:59 Review of Systems Review of Systems: Yes all other systems are reviewed and are negative [facility] Past Medical History [facility] Narrative: Social history: She denies tobacco use. She denies alcohol use. She denies drug use. Medical History Aortic insufficiency Asthma Depression Diabetes GERD (gastroesophageal reflux disease) High cholesterol Hypertension Multinodular goiter (nontoxic) NSTEMI (non-ST elevated myocardial infarction) Pancreatitis Pulmonary embolism Surgical History No history of previous surgery Family History Family History Father Hypertension Heart disease Mother Hypertension Heart disease Social History Social History Household Members: Family and Other Household Members Other:: daughter is magazine hand Housing: Apartment Do you presently have visiting nurse or other home services: No Alcohol intake: never Patient Tobacco Use Status: Never used Tobacco Second Hand Smoke Exposure: No Advance Directives: No service: No Current occupational status: unemployed and disabled Physical Exam Vital Signs: Vital Signs: Last Vital Signs Temp 98 F 02/10/23 07:59 Pulse 74 02/10/23 07:59 Resp 19 02/10/23 07:59 BP 152/74 H 02/10/23 07:59 Pulse Ox 94 02/10/23 07:59 O2 Del Method Room Air 02/10/23 07:59 BMI result Body Mass Index 21.7 Medical Decision Making Medical Decision Making MDM Narrative: 78-year-old female who presents emergency department for evaluation of subjective fever, productive cough, chest pain with cough x1 week . vital signs were normal. Lung exam was unremarkable. Chest x-ray revealed no acute disease on my interpretation and correlates with the radiology reading. Patient will be treated for bacterial bronchitis with doxycycline 100 mg every 12 hours for 7 days. She was also given prescription for Tessalon Perles. Differential Diagnosis Differential Diagnoses: The differential diagnosis associated with the presentation includes Independent Interpretation I performed an independent interpretation of an: Plain X-Ray Interpretation: My interpretation patient's chest x-ray is no acute disease Radiology Impression Discussion of test interpretation with radiology: I have reviewed the radiologist's reading. Radiologist Impression: XR chest 2V IMPRESSION: Unremarkable examination. Dictated By:Iain Reyes MD Discharge Plan Discharge Clinical Impression: Bronchitis Patient Disposition: Home, Self-Care Instructions: Acute Bronchitis (ED) Additional Instructions: Your chest x-ray was normal. Your symptoms are consistent with bronchitis. Take doxycycline 100 mg, 1 pill every 12 hours for 7 days Take Tessalon Perles, 100 mg pills, 1 pill 3 times a day as needed for cough Follow-up with your doctor in 2 days. Please return to the emergency department if your symptoms get worse or if you develop any symptoms that are concerning to you. Prescriptions: New doxycycline hyclate 100 mg tablet 100 mg PO Q12H 7 Days Qty: 14 0RF benzonatate 100 mg capsule 100 mg PO TID PRN (Reason: cough) 5 Days Qty: 15 0RF No Action sertraline 100 mg tablet 200 mg PO DAILY montelukast 10 mg tablet 1 tab PO BEDTIME benazepril 10 mg tablet 1 tab PO QAM atorvastatin 80 mg Tablet 80 mg PO BEDTIME Qty: 30 0RF acetaminophen [Tylenol Extra Strength] 500 mg tablet 500 mg PO Q6H PRN (Reason: fever or pain) Qty: 14 0RF cyclobenzaprine 5 mg tablet 5 mg PO Q8H PRN (Reason: pain (scale score 7-10)) 5 Days Qty: 14 0RF metoclopramide HCl [Reglan] 5 mg tablet 5 mg PO Q6H PRN (Reason: nausea and vomiting) Qty: 10 0RF ondansetron 4 mg tablet,disintegrating 4 mg PO Q8H PRN (Reason: nausea and vomiting) Qty: 10 0RF calcium carbonate-vitamin D3 600 mg-5 mcg (200 unit) tablet 1 tab PO BID fluticasone propion-salmeterol 500-50 mcg/dose blister with device 1 puff inhalation BID Certavite-Antioxidant 18-400 mg-mcg tablet 1 tab PO DAILY Incruse Ellipta 62.5 mcg/actuation blister with device 1 puff inhalation DAILY isosorbide mononitrate 60 mg tablet extended release 24 hr 1 tab PO DAILY trazodone 100 mg tablet 200 mg PO BEDTIME omeprazole 20 mg capsule,delayed release(DR/EC) 1 cap PO DAILY trazodone 100 mg tablet 100 mg PO BEDTIME PRN (Reason: Insomnia) Rx Instructions: If addition to 200 mg if cannot sleep fluticasone propionate 50 mcg/actuation [place],Suspension 1 spray INTRANASAL DAILY PRN (Reason: Allergy Symptoms) Rx Instructions: administer into each nostril heparin(porcine) in 0.45% NaCl 25,000 unit/250 mL Parenteral Solution 25,000 unit continuous IV infusion .Q0M Qty: 6000 0RF aspirin 81 mg Tablet,Chewable 81 mg PO DAILY Qty: 1 0RF heparin (porcine) 5,000 unit/mL Solution 2,100 unit IVPUSH PROTOCOL BOLUS PRN (Reason: 40 Unit/Kg - Heparin Protocol) Qty: 1 0RF heparin (porcine) 5,000 unit/mL Solution 4,100 unit IVPUSH PROTOCOL BOLUS PRN (Reason: 80 Unit/Kg - Heparin Protocol) Qty: 1 0RF morphine 4 mg/mL Syringe 2 mg IVPUSH Q4H PRN (Reason: Pain, Severe (Pain Scale 7-10)) Qty: 10 0RF Protocol: Hold for RR < HOLD and contact provider for RR < (bpm): 12 Rx Instructions: Partial Fill upon patient request. ondansetron HCl (PF) 4 mg/2 mL Solution 4 mg IVPUSH Q8H PRN (Reason: Nausea And Vomiting) Qty: 10 0RF metoprolol tartrate 25 mg tablet 12.5 mg PO Q6H Qty: 1 0RF acetaminophen [Tylenol Extra Strength] 500 mg tablet 500 mg PO Q6H PRN (Reason: fever or pain) Qty: 14 0RF lidocaine [Lidoderm] 5 % adhesive patch,medicated 1 patch topical DAILY MDD remove after 12 hours PRN (Reason: pain) Qty: 30 0RF Rx Instructions: leave on most painful area for up to 12 hrs naproxen 500 mg tablet 500 mg PO BID PRN (Reason: pain) 7 Days Qty: 20 0RF cyclobenzaprine 5 mg tablet 5 mg PO Q8H PRN (Reason: pain (scale score 7-10)) 5 Days Qty: 14 0RF
== END 2023-02-10 11:33 | disposition home or self-care (01) ==
PROVIDERS: Emergency Provider Emergency Medicine Emergency Medical Services; PCP Family Medicine
DX: J40 Bronchitis, not specified as acute or chronic (principal); E11.9 Type 2 diabetes mellitus without complications; I10 Essential (primary) hypertension; E78.5 Hyperlipidemia, unspecified; Z86.711 Personal history of pulmonary embolism; Z79.02 Long term (current) use of antithrombotics/antiplatelets; Z79.899 Other long term (current) drug therapy; Z79.01 Long term (current) use of anticoagulants; Z79.82 Long term (current) use of aspirin
CPT/HCPCS: 71046; 99283; 99284

== ENCOUNTER 2023-03-22 07:59 | Emergency (ER) | payer OTHER, SELFPAY ==
[2023-03-22 08:02] VITALS: BP 150/72; PULSE 70; RESP 18; TEMP 36.8; O2SAT 99; BMI 23.4
--- NOTE | 2023-03-22 08:33 | ED.GENADULT ---
HPI - General Adult General Chief complaint: General Medical Stated complaint: Back pain Time Seen by Provider: 03/22/23 08:33 Source: patient, EMS, RN notes reviewed and old records reviewed Mode of arrival: EMS History of Present Illness HPI narrative: 78-year-old female with a past medical history of asthma, diabetes, GERD, HLD, HTN, NSTEMI, pancreatitis, PE, presenting to the ED complaining of acute on chronic right-sided low back pain radiating to right buttock/RLQ and RLE x months. Has been taking Tylenol at home without relief. Denies an injury/trauma or fall. Reports associated numbness/tingling down RLE. Patient admits to acute on chronic urinary incontinence, states she was prescribed diapers. Denies fever/chills, nausea/vomiting, dysuria/hematuria, retention, flank pain. Patient is poor historian Onset (ago): month(s) Related Data Home Medications Medication Instructions Recorded Confirmed benazepril 10 mg tablet 1 tab PO QAM 11/20/20 08/27/22 montelukast 10 mg tablet 1 tab PO BEDTIME 11/20/20 08/27/22 sertraline 100 mg tablet 200 mg PO DAILY 11/20/20 08/27/22 calcium carbonate 600 mg-vitamin 1 tab PO BID 08/27/22 08/27/22 D3 5 mcg (200 unit) tablet fluticasone 500 mcg-salmeterol 50 1 puff inhalation BID 08/27/22 08/27/22 mcg/dose blistr powdr for inhalation fluticasone propionate 50 1 spray intranasal DAILY PRN 08/27/22 08/27/22 mcg/actuation nasal Allergy Symptoms spray,suspension isosorbide mononitrate 60 mg 1 tab PO DAILY 08/27/22 08/27/22 tablet,extended release 24 hr multivitamin-ferrous 1 tab PO DAILY 08/27/22 08/27/22 fumarate-folic acid 18 mg-400 mcg tablet (Certavite-Antioxidant) omeprazole 20 mg capsule,delayed 1 cap PO DAILY 08/27/22 08/27/22 release trazodone 100 mg tablet 100 mg PO BEDTIME PRN Insomnia 08/27/22 08/27/22 trazodone 100 mg tablet 200 mg PO BEDTIME 08/27/22 08/27/22 umeclidinium 62.5 mcg/actuation 1 puff inhalation DAILY 08/27/22 08/27/22 blister powder for inhalation (Incruse Ellipta) Previous Rx's Medication Instructions Recorded atorvastatin 80 mg tablet 80 mg PO BEDTIME #30 tabs 05/12/21 acetaminophen 500 mg tablet 500 mg PO Q6H PRN fever or pain 04/22/22 (Tylenol Extra Strength) #14 tabs cyclobenzaprine 5 mg tablet 5 mg PO Q8H PRN pain (scale score 04/22/22 7-10) 5 days #14 tabs metoclopramide HCl 5 mg tablet 5 mg PO Q6H PRN nausea and 08/06/22 (Reglan) vomiting #10 tabs aspirin 81 mg chewable tablet 81 mg PO DAILY #1 tab 08/28/22 heparin (porcine) 25,000 unit/250 25,000 unit (250 mL) continuous IV 08/28/22 mL in 0.45 % sodium chloride IV infusion .Q0M #6,000 mL soln heparin (porcine) 5,000 unit/mL 2,100 unit (0.42 mL) IVPUSH 08/28/22 injection solution PROTOCOL BOLUS PRN 40 Unit/Kg - Heparin Protocol #1 mL heparin (porcine) 5,000 unit/mL 4,100 unit (0.82 mL) IVPUSH 08/28/22 injection solution PROTOCOL BOLUS PRN 80 Unit/Kg - Heparin Protocol #1 mL metoprolol tartrate 25 mg tablet 12.5 mg PO Q6H #1 tab 08/28/22 morphine 4 mg/mL intravenous 2 mg IVPUSH Q4H PRN Pain, Severe 08/28/22 syringe (Pain Scale 7-10) #10 mL ondansetron HCl (PF) 4 mg/2 mL 4 mg (2 mL) IVPUSH Q8H PRN Nausea 08/28/22 injection solution And Vomiting #10 mL ondansetron 4 mg disintegrating 4 mg PO Q8H PRN nausea and 11/27/22 tablet vomiting #10 tabs acetaminophen 500 mg tablet 500 mg PO Q6H PRN fever or pain 12/30/22 (Tylenol Extra Strength) #14 tabs cyclobenzaprine 5 mg tablet 5 mg PO Q8H PRN pain (scale score 12/30/22 7-10) 5 days #14 tabs lidocaine 5 % topical patch 1 patch topical DAILY PRN pain #30 12/30/22 (Lidoderm) ea naproxen 500 mg tablet 500 mg PO BID PRN pain 7 days #20 12/30/22 tabs benzonatate 100 mg capsule 100 mg PO TID PRN cough 5 days #15 02/10/23 caps doxycycline hyclate 100 mg tablet 100 mg PO Q12H 7 days #14 tabs 02/10/23 acetaminophen 500 mg tablet 500 mg PO Q6H PRN fever or pain 03/22/23 (Tylenol Extra Strength) #14 tabs cyclobenzaprine 5 mg tablet 5 mg PO Q8H PRN pain (scale score 03/22/23 7-10) 5 days #14 tabs lidocaine 5 % topical patch 1 patch topical DAILY PRN pain #30 03/22/23 (Lidoderm) ea Allergies Allergy/AdvReac Type Severity Reaction Status Date / Time No Known Allergies Allergy Verified 02/10/23 07:59 Review of Systems Review of Systems: Constitutional: No Fever, No Chills, No Fatigue, No Malaise ENT/Mouth: No Hearing loss, No Ear Pain, No Nasal Congestion, No sore throat, No Rhinorrhea, No Swallowing Difficulty Eyes: No Eye Pain, No Swelling, No Redness,No Vision Changes Cardiovascular: No Chest Pain, No SOB, No Edema, No Palpitations Respiratory: No Cough, No Dyspnea Gastrointestinal: No Nausea, No Vomiting, No Diarrhea, No Constipation, + Abdominal pain Genitourinary: No irregular bleeding, No Dysuria, No Urinary Frequency, No Hematuria, +chronic Urinary Incontinence, No retention, No Flank Pain Musculoskeletal: + joint pain, No Myalgias, No Joint Swelling Skin: No Skin Lesions, No rash Neuro: No Weakness, No Numbness, + Paresthesias Yes all other systems are reviewed and are negative Constitutional: Constitutional: Reports as per [facility] Past Medical History Attestation statement: The following information was validated with the patient. Source: old records reviewed Medical History Aortic insufficiency Asthma Depression Diabetes GERD (gastroesophageal reflux disease) High cholesterol Hypertension Multinodular goiter (nontoxic) NSTEMI (non-ST elevated myocardial infarction) Pancreatitis Pulmonary embolism Surgical History No history of previous surgery Family History Family History Father Hypertension Heart disease Mother Hypertension Heart disease Social History Social History Household Members: Family and Other Household Members Other:: daughter is deck engine operator Housing: Apartment Do you presently have visiting nurse or other home services: No Alcohol intake: never Patient Tobacco Use Status: Never used Tobacco Smoked in Last 30 Days: No Second Hand Smoke Exposure: No Use of substances other than those prescribed or required for medical reasons: No Advance Directives: No Advance Directives Information Provided: Yes service: No Current occupational status: unemployed and disabled Physical Exam ED Vital Signs: Vital Signs - 24 hr 03/22/23 08:02 03/22/23 10:26 Temperature 98.3 F 97.6 F Pulse Rate 70 63 Respiratory Rate 18 16 Blood Pressure 150/72 H 166/88 H Pulse Oximetry 99 96 Oxygen Delivery Method Room Air Room Air BMI result Body Mass Index 23.4 Const General: cooperative, healthy appearing, comfortable and no acute distress Orientation/consciousness: patient oriented x3 Limitations: no limitations HENMT Head: Yes normal to inspection and Yes atraumatic Ears: hearing grossly normal bilaterally General nose exam: Normal external nose present Face and sinus: Yes normal facial exam Eyes General: appearance normal, both eyes and all related structures EOM: EOMs intact bilaterally Neck Neck: Yes normal visual inspection and Yes no meningeal signs Resp Effort & Inspection: normal respiratory effort and no respiratory distress Cardio Rate: regular rate Heart sounds: S1 normal heart sound present and S2 normal heart sound present Peripheral pulses: Peripheral pulses 2+ throughout GI Inspection: Yes normal to inspection Palpation (GI): Soft to palpation, Tenderness to palpation present (GI) in the RLQ; with no rebound tenderness, no guarding and not rigid General: Yes no CVA tenderness Back/Spine/Pelvis Other: No midline cervical/thoracic/lumbar spinous tenderness/step-off or deformity. + right lumbar paraspinal/MSK/right buttock tenderness to palpation reproducing subjective complaint. No erythema/warmth or ecchymosis. No rash Back: no CVA tenderness Skin Rashes: no rashes Wounds: no wounds Neuro Other: Strength intact throughout. No saddle anesthesia. Sensation intact to light touch. Neurovascular intact distally Rectal tone WNL. Perianal sensation intact General: patient oriented x3, gait normal, tone normal, moves all extremities, no meningeal signs and no focal motor deficits Gait exam (Neuro): Normal gait present Motor exam (neuro): 5/5 motor strength present throughout Extrem General: Yes normal to inspection Course Course Course Narrative: -1112--no leukocytosis. Labs otherwise reassuring -UA with positive leuk esterase and wbc's. > patient is symptomatic will treat with p.o. Ceftin -1118--on re-evaluation patient is sleeping comfortably, reports mild symptomatic improvement Results discussed with patient including worrisome signs and symptoms and strict return precautions, and when to return to the emergency department. They verbalized understanding and feel safe for discharge at this time. Medications Administered Discontinued Medications Generic Name Dose Route Start Last Admin Trade Name Freq PRN Reason Stop Dose Admin Cyclobenzaprine HCl 10 mg 03/22/23 09:06 03/22/23 10:16 Cyclobenzaprine Hcl 10 Mg Tablet PO 03/22/23 09:07 10 mg ONCE ONE Administration Lidocaine HCl 1 appl 03/22/23 09:06 03/22/23 10:17 Lidocaine 4 % Cream Kit TOPICAL 03/22/23 09:07 1 appl ONCE ONE Administration Protocol Medical Decision Making Medical Decision Making [facility] Narrative: 78-year-old female with a past medical history of asthma, diabetes, GERD, HLD, HTN, NSTEMI, pancreatitis, PE, presenting to the ED complaining of acute on chronic right-sided low back pain radiating to right buttock/RLQ and RLE x months. On exam VSS, NAD, nontoxic appearing, no midline spinous tenderness throughout red flag symptoms. Ambulating with steady gait. Reproducible right-sided lumbar MSK/buttock tenderness to palpation. Abdomen soft with mild RLQ tenderness, no rebound or guarding, new CVAT. Concern for sciatica vs MSK pain/strain. Rule out UTI. Lower suspicion for pyelo, appendicitis/diverticulitis with duration of symptoms. Unlikely cauda equina, rectal tone/perianal sensation intact. Unlikely fracture Plan: Labs, UA, pain control Please refer to course for remaining clinical decision making, interpretation of labs/imaging results, and discussions with consultants and/or family members. Differential Diagnosis Differential Diagnoses: The differential diagnosis associated with the presentation includes As above Lab Data MDM Lab Attestation statement: I reviewed the patient's lab results. 03/22/23 10:32 03/22/23 10:32 Labs: Lab Results 03/22/23 03/22/23 03/22/23 Range/Units 10:32 10:32 10:32 WBC 4.1 L (4.8-10.8) X10*3/uL RBC 4.60 (4.20-5.50) X10*6/uL Hgb 13.0 (12.0-16.0) g/dl Hct 41.5 (37.0-47.0) % MCV 90.2 (80.0-98.0) fL MCH 28.3 (27.0-33.0) pg MCHC 31.3 (31.0-35.0) g/dl RDW 13.2 (11.0-16.0) % Plt Count 221 (160-400) X10*3/uL MPV 11.3 (9.4-12.3) fL Immature Gran % (Auto) 0.2 (0.0-0.4) % Neut % (Auto) 41.1 L (45-73) % Lymph % (Auto) 40.8 H (20-40) % Major % (Auto) 12.0 H (2-11) % Eos % (Auto) 5.2 H (0-4) % Baso % (Auto) 0.7 (0-2) % Lymph # (Auto) 1.7 (1.2-4.9) X10*3/uL Major # (Auto) 0.5 (0.1-1.2) X10*3/uL Eos # (Auto) 0.2 (0.0-0.4) X10*3/uL Baso # (Auto) 0.0 (0.0-0.2) X10*3/uL Abs Immat Gran (auto) 0.01 (0.00-0.03) X10*3/uL Absolute Neuts (auto) 1.7 L (2.0-8.3) x10*3/uL Absolute Nucleated RBC 0.000 (0.0-0.012) X10*3/uL Nucleated RBC % (auto) 0.0 (0.0-0.2) /100WBC Sodium 142 (135-145) mmol/L Potassium 4.7 (3.3-5.1) mmol/L Chloride 108 (96-108) mmol/L Carbon Dioxide 26 (22-29) mmol/L Anion Gap 13 (12-20) BUN 16 (9-16) mg/dL Creatinine 0.86 (0.5-1.4) mg/dL Estim Creat Clear Calc 38.7 Estimated GFR > 60 Random Glucose 100 (60-115) mg/dL Calcium 10.1 D (8.4-10.2) mg/dL Total Bilirubin 0.8 (0.0-1.0) mg/dL Direct Bilirubin 0.3 (0.0-0.5) mg/dL AST 25 (5-31) U/L ALT 22 (0-31) U/L Alkaline Phosphatase 146 H (39-117) U/L Total Protein 7.2 (6.5-8.0) g/dL Albumin 3.9 (3.5-5.0) g/dL Urine Color Yellow Urine Appearance Clear Urine pH 5.5 (5.0-9.0) Ur Specific [place] 1.015 (1.005-1.025) Urine Protein Negative (Neg-Trace) mg/dL Urine Glucose (UA) Negative (Negative) mg/dL Urine Ketones Negative (Negative) mg/dL Urine Blood Negative (Negative) Urine Nitrite Negative (Negative) Ur Leukocyte Esterase Moderate (2+) H (Negative) Urine RBC 0-2 (0-2) /HPF Urine WBC 6-10 H (0-5) /HPF Ur Squamous Epith Cells 0-2 (0-2) /HPF Urine Bacteria None Seen (None Seen) Hyaline Casts 0-2 (0-2) /LPF Radiology Impression Discussion of test interpretation with radiology: I have reviewed the radiologist's reading. Independent Historian Clinical information obtained from an independent historian. History obtained from or confirmed by: Spouse External Record Review External record reviewed: Inpatient record, Office record, Outpatient record, Prior outpatient labs, Prior outpatient radiology, Primary care record and Outside ED record Tests considered The following testing was considered but not selected: CT scan considered, however due to length the patient's symptoms not needed at this time Prescription Management I considered prescription management with: Pain Medication Chronic Conditions Patient?s care impacted by: Diabetes and Hypertension Discharge Plan Discharge Clinical Impression: Acute UTI, Sciatica Patient Disposition: Home, Self-Care Instructions: Urinary Tract Infection in Women (DC), Sciatica (ED) Additional Instructions: Your blood work is reassuring. You do have a urine infection, Ceftin as an antibiotic please take as prescribed Your pain is likely musculoskeletal Flexeril is a muscle relaxer, take at night as it makes you drowsy, do not drive, drink alcohol, or operate machinery while taking it Lidoderm patches are numbing patches, apply to painful area In addition take Tylenol at home If symptoms persist or worsen, pain becomes unbearable, you developed urinary retention or incontinence, or weakness return to the ED Hernandez an?lisis de kenney es tranquilizador. Tiene yenifer infecci?n de orina, Ceftin angela antibi?yane, t?cabrera seg?n lo prescrito. Es probable que hernandez dolor sea musculoesquel?yane Flexeril es un relajante muscular, t?kimberly por la noche ya que te adormece, no conduzcas, bebas alcohol ni operes maquinaria mientras lo yari. Los parches de Lidoderm son parches anest?sicos, se aplican en el ?claude dolorida Adem?s melanie Tylenol en casa Si los s?ntomas persisten o empeoran, el dolor se vuelve insoportable, desarroll? retenci?n urinaria o incontinencia, o debilidad, regrese al servicio de urgencias. Prescriptions: New acetaminophen [Tylenol Extra Strength] 500 mg tablet 500 mg PO Q6H PRN (Reason: fever or pain) Qty: 14 0RF lidocaine [Lidoderm] 5 % adhesive patch,medicated 1 patch topical DAILY MDD remove after 12 hours PRN (Reason: pain) Qty: 30 0RF Rx Instructions: leave on most painful area for up to 12 hrs cyclobenzaprine 5 mg tablet 5 mg PO Q8H PRN (Reason: pain (scale score 7-10)) 5 Days Qty: 14 0RF No Action sertraline 100 mg tablet 200 mg PO DAILY montelukast 10 mg tablet 1 tab PO BEDTIME benazepril 10 mg tablet 1 tab PO QAM atorvastatin 80 mg Tablet 80 mg PO BEDTIME Qty: 30 0RF acetaminophen [Tylenol Extra Strength] 500 mg tablet 500 mg PO Q6H PRN (Reason: fever or pain) Qty: 14 0RF cyclobenzaprine 5 mg tablet 5 mg PO Q8H PRN (Reason: pain (scale score 7-10)) 5 Days Qty: 14 0RF metoclopramide HCl [Reglan] 5 mg tablet 5 mg PO Q6H PRN (Reason: nausea and vomiting) Qty: 10 0RF ondansetron 4 mg tablet,disintegrating 4 mg PO Q8H PRN (Reason: nausea and vomiting) Qty: 10 0RF calcium carbonate-vitamin D3 600 mg-5 mcg (200 unit) tablet 1 tab PO BID fluticasone propion-salmeterol 500-50 mcg/dose blister with device 1 puff inhalation BID Certavite-Antioxidant 18-400 mg-mcg tablet 1 tab PO DAILY Incruse Ellipta 62.5 mcg/actuation blister with device 1 puff inhalation DAILY isosorbide mononitrate 60 mg tablet extended release 24 hr 1 tab PO DAILY trazodone 100 mg tablet 200 mg PO BEDTIME omeprazole 20 mg capsule,delayed release(DR/EC) 1 cap PO DAILY trazodone 100 mg tablet 100 mg PO BEDTIME PRN (Reason: Insomnia) Rx Instructions: If addition to 200 mg if cannot sleep fluticasone propionate 50 mcg/actuation [place],Suspension 1 spray INTRANASAL DAILY PRN (Reason: Allergy Symptoms) Rx Instructions: administer into each nostril heparin(porcine) in 0.45% NaCl 25,000 unit/250 mL Parenteral Solution 25,000 unit continuous IV infusion .Q0M Qty: 6000 0RF aspirin 81 mg Tablet,Chewable 81 mg PO DAILY Qty: 1 0RF heparin (porcine) 5,000 unit/mL Solution 2,100 unit IVPUSH PROTOCOL BOLUS PRN (Reason: 40 Unit/Kg - Heparin Protocol) Qty: 1 0RF heparin (porcine) 5,000 unit/mL Solution 4,100 unit IVPUSH PROTOCOL BOLUS PRN (Reason: 80 Unit/Kg - Heparin Protocol) Qty: 1 0RF morphine 4 mg/mL Syringe 2 mg IVPUSH Q4H PRN (Reason: Pain, Severe (Pain Scale 7-10)) Qty: 10 0RF Protocol: Hold for RR < HOLD and contact provider for RR < (bpm): 12 Rx Instructions: Partial Fill upon patient request. ondansetron HCl (PF) 4 mg/2 mL Solution 4 mg IVPUSH Q8H PRN (Reason: Nausea And Vomiting) Qty: 10 0RF metoprolol tartrate 25 mg tablet 12.5 mg PO Q6H Qty: 1 0RF acetaminophen [Tylenol Extra Strength] 500 mg tablet 500 mg PO Q6H PRN (Reason: fever or pain) Qty: 14 0RF lidocaine [Lidoderm] 5 % adhesive patch,medicated 1 patch topical DAILY MDD remove after 12 hours PRN (Reason: pain) Qty: 30 0RF Rx Instructions: leave on most painful area for up to 12 hrs naproxen 500 mg tablet 500 mg PO BID PRN (Reason: pain) 7 Days Qty: 20 0RF cyclobenzaprine 5 mg tablet 5 mg PO Q8H PRN (Reason: pain (scale score 7-10)) 5 Days Qty: 14 0RF doxycycline hyclate 100 mg tablet 100 mg PO Q12H 7 Days Qty: 14 0RF benzonatate 100 mg capsule 100 mg PO TID PRN (Reason: cough) 5 Days Qty: 15 0RF Referrals: Tiffany Kent MD [Primary Care Provider] - Interventions: ED Discharge Assessment Last Done: 03/22/23 11:46 Discharge Date/Time: 03/22/23 11:46 Print Language: Romansh
[2023-03-22 10:26] VITALS: BP 166/88; PULSE 63; RESP 16; TEMP 36.4; O2SAT 96
== END 2023-03-22 11:46 | disposition home or self-care (01) ==
PROVIDERS: Emergency Provider Emergency Medicine Emergency Medical Services; PCP Family Medicine
DX: N39.0 Urinary tract infection, site not specified (principal); M54.41 Lumbago with sciatica, right side; E11.9 Type 2 diabetes mellitus without complications; I10 Essential (primary) hypertension; E78.5 Hyperlipidemia, unspecified; Z79.899 Other long term (current) drug therapy
CPT/HCPCS: 36415; 80048; 80076; 81001; 85025; 87086; 99283; 99284

== ENCOUNTER 2023-05-12 18:11 | Emergency (ER) | payer OTHER, SELFPAY ==
--- NOTE | ~2023-05-12 | XR_ITS ---
EXAMINATION: XR KNEE, RIGHT CLINICAL INFORMATION: Pain. COMPARISON: None available. TECHNIQUE: Four views of the right knee. FINDINGS: The bone mineralization is normal. There is mild medial and lateral knee degenerative change with loss of joint space, and mild osteophyte formation. There is no fracture. There is a moderate joint effusion. XR/XR knee RT 3V IMPRESSION: Mild medial and lateral knee degenerative change. No acute osseous abnormality. Moderate joint effusion.
--- NOTE | 2023-05-12 18:17 | ED.GENADULT ---
HPI - General Adult General Chief complaint: Extremity Injury, Lower Stated complaint: R Knee pain Time Seen by Provider: 05/12/23 18:39 Source: patient Mode of arrival: ambulatory Limitations: no limitations History of Present Illness HPI narrative: Patient comes to the emergency room complaining of right-sided knee pain since yesterday. Patient states that she did not have any injury. Patient has been taking Tylenol without any relief. Related Data Home Medications Medication Instructions Recorded Confirmed benazepril 10 mg tablet 1 tab PO QAM 11/20/20 08/27/22 montelukast 10 mg tablet 1 tab PO BEDTIME 11/20/20 08/27/22 sertraline 100 mg tablet 200 mg PO DAILY 11/20/20 08/27/22 calcium carbonate 600 mg-vitamin 1 tab PO BID 08/27/22 08/27/22 D3 5 mcg (200 unit) tablet fluticasone 500 mcg-salmeterol 50 1 puff inhalation BID 08/27/22 08/27/22 mcg/dose blistr powdr for inhalation fluticasone propionate 50 1 spray intranasal DAILY PRN 08/27/22 08/27/22 mcg/actuation nasal Allergy Symptoms spray,suspension isosorbide mononitrate 60 mg 1 tab PO DAILY 08/27/22 08/27/22 tablet,extended release 24 hr multivitamin-ferrous 1 tab PO DAILY 08/27/22 08/27/22 fumarate-folic acid 18 mg-400 mcg tablet (Certavite-Antioxidant) omeprazole 20 mg capsule,delayed 1 cap PO DAILY 08/27/22 08/27/22 release trazodone 100 mg tablet 100 mg PO BEDTIME PRN Insomnia 08/27/22 08/27/22 trazodone 100 mg tablet 200 mg PO BEDTIME 08/27/22 08/27/22 umeclidinium 62.5 mcg/actuation 1 puff inhalation DAILY 08/27/22 08/27/22 blister powder for inhalation (Incruse Ellipta) Previous Rx's Medication Instructions Recorded atorvastatin 80 mg tablet 80 mg PO BEDTIME #30 tabs 05/12/21 acetaminophen 500 mg tablet 500 mg PO Q6H PRN fever or pain 04/22/22 (Tylenol Extra Strength) #14 tabs cyclobenzaprine 5 mg tablet 5 mg PO Q8H PRN pain (scale score 04/22/22 7-10) 5 days #14 tabs metoclopramide HCl 5 mg tablet 5 mg PO Q6H PRN nausea and 08/06/22 (Reglan) vomiting #10 tabs aspirin 81 mg chewable tablet 81 mg PO DAILY #1 tab 08/28/22 heparin (porcine) 25,000 unit/250 25,000 unit (250 mL) continuous IV 08/28/22 mL in 0.45 % sodium chloride IV infusion .Q0M #6,000 mL soln heparin (porcine) 5,000 unit/mL 2,100 unit (0.42 mL) IVPUSH 08/28/22 injection solution PROTOCOL BOLUS PRN 40 Unit/Kg - Heparin Protocol #1 mL heparin (porcine) 5,000 unit/mL 4,100 unit (0.82 mL) IVPUSH 08/28/22 injection solution PROTOCOL BOLUS PRN 80 Unit/Kg - Heparin Protocol #1 mL metoprolol tartrate 25 mg tablet 12.5 mg PO Q6H #1 tab 08/28/22 morphine 4 mg/mL intravenous 2 mg IVPUSH Q4H PRN Pain, Severe 08/28/22 syringe (Pain Scale 7-10) #10 mL ondansetron HCl (PF) 4 mg/2 mL 4 mg (2 mL) IVPUSH Q8H PRN Nausea 08/28/22 injection solution And Vomiting #10 mL ondansetron 4 mg disintegrating 4 mg PO Q8H PRN nausea and 11/27/22 tablet vomiting #10 tabs acetaminophen 500 mg tablet 500 mg PO Q6H PRN fever or pain 12/30/22 (Tylenol Extra Strength) #14 tabs cyclobenzaprine 5 mg tablet 5 mg PO Q8H PRN pain (scale score 12/30/22 7-10) 5 days #14 tabs lidocaine 5 % topical patch 1 patch topical DAILY PRN pain #30 12/30/22 (Lidoderm) ea naproxen 500 mg tablet 500 mg PO BID PRN pain 7 days #20 12/30/22 tabs benzonatate 100 mg capsule 100 mg PO TID PRN cough 5 days #15 02/10/23 caps doxycycline hyclate 100 mg tablet 100 mg PO Q12H 7 days #14 tabs 02/10/23 acetaminophen 500 mg tablet 500 mg PO Q6H PRN fever or pain 03/22/23 (Tylenol Extra Strength) #14 tabs cyclobenzaprine 5 mg tablet 5 mg PO Q8H PRN pain (scale score 03/22/23 7-10) 5 days #14 tabs lidocaine 5 % topical patch 1 patch topical DAILY PRN pain #30 03/22/23 (Lidoderm) ea cefuroxime axetil 250 mg tablet 250 mg PO BID 7 days #14 tabs 03/24/23 tramadol 50 mg tablet 50 mg PO BID PRN pain #6 tabs 05/12/23 Allergies Allergy/AdvReac Type Severity Reaction Status Date / Time No Known Allergies Allergy Verified 02/10/23 07:59 Review of Systems Review of Systems: Constitutional : No Weight loss, No Fever, No Chills, No Night Sweats, No Fatigue, No Malaise ENT/Mouth : No Hearing loss, No Ear Pain, No Nasal Congestion, No Sinus Pain, No Hoarseness, No sore throat, No Rhinorrhea, No Swallowing Difficulty Eyes: No Eye Pain, No Swelling, No Redness, No Foreign Body, No Discharge, No Vision Changes Cardiovascular : No Chest Pain, No SOB, No Dyspnea on Exertion, No Orthopnea, No Edema, No Palpitations Respiratory : No Cough, No Sputum, No Wheezing, No Smoke Exposure, No Dyspnea Gastrointestinal : No Nausea, No Vomiting, No Diarrhea, No Constipation, No abdominal Pain, No Hematochezia, No Melena Genitourinary : no irregular bleeding, No Dysuria, No Urinary Frequency, No Hematuria, No Urinary Incontinence, No Urgency, No Flank Pain, No Urinary Flow Changes, No Hesitancy Musculoskeletal : Complaining of right knee pain, traumatic., No Myalgias, No Joint Swelling Skin : No Skin Lesions, No rash Neuro : No Weakness, No Numbness, No Paresthesias, No Loss of Consciousness, No Dizziness, No Headache Psych : No Anxiety/Panic, No Depression, No SI/HI/AH/VH, No Social Issues, Heme/Lymph: No Bruising, No Bleeding,No Lymphadenopathy Endocrine : No Polyuria, No Polydipsia, No Temperature Intolerance PMFSH Past Medical History Medical History Aortic insufficiency Asthma Depression Diabetes GERD (gastroesophageal reflux disease) High cholesterol Hypertension Multinodular goiter (nontoxic) NSTEMI (non-ST elevated myocardial infarction) Pancreatitis Pulmonary embolism Surgical History No history of previous surgery Family History Family History Father Hypertension Heart disease Mother Hypertension Heart disease Social History Social History Household Members: Family and Other Household Members Other:: daughter is store specialist Housing: Apartment Do you presently have visiting nurse or other home services: No Alcohol intake: never Patient Tobacco Use Status: Never used Tobacco Second Hand Smoke Exposure: No Advance Directives: No Advance Directives Information Provided: No service: No Current occupational status: unemployed and disabled Physical Exam ED Vital Signs: Vital Signs - 24 hr 05/12/23 18:18 Temperature 97.6 F Pulse Rate 67 Respiratory Rate 17 Blood Pressure 124/68 Pulse Oximetry 95 Oxygen Delivery Method Room Air BMI result Body Mass Index 24.0 Const Other: Appearance: Alert. Oriented X3. No acute distress. Eyes: Pupils equal, round and reactive to light. ENT: Pharynx normal. Neck: Normal inspection. Neck supple. No lymph nodes noted. No crepitus CVS: Normal heart rate and rhythm. Pulses normal. Normal S1 and S2 Respiratory: No respiratory distress. Breath sounds normal. No Wheezing. No rales Abdomen: Soft and nontender. No rigidity. No distention. Skin: Skin warm and dry. Normal skin color. Normal skin turgor. Extremities: No lower extremity edema. No Lacerations. No Rash. Patient is able to flex and extend both knees, no obvious effusion. No ecchymosis, no deformity. Neuro: Oriented X 3. No motor deficit. No sensory deficit. Moving all extremities. No slurred speech. CN 2 through 12 grossly intact Psych: calm, cooperative, normal affect Course Course Course Narrative: RME- 78 year old female presents for evaluation of right knee pain. She woke up with the pain this morning. Denies any trauma. Plan for x-ray Medical Decision Making Medical Decision Making MDM Narrative: = my interpretation of x-ray of the knee, normal alignment, osteoarthritis, Differential Diagnosis Differential Diagnoses: The differential diagnosis associated with the presentation includes (Contusion, patellar fracture, dislocation, osteoarthritis) Independent Interpretation I performed an independent interpretation of an: Plain X-Ray Radiology Impression Discussion of test interpretation with radiology: I have reviewed the radiologist's reading. Radiologist Impression: FINDINGS: The bone mineralization is normal. There is mild medial and lateral knee degenerative change with loss of joint space, and mild osteophyte formation. There is no fracture. There is a moderate joint effusion.? XR/XR knee RT 3V IMPRESSION: Mild medial and lateral knee degenerative change. ? No acute osseous abnormality. ? Moderate joint effusion Discharge Plan Discharge Clinical Impression: Acute knee pain Patient Disposition: Home, Self-Care Instructions: Arthralgia (ED) Additional Instructions: Please follow-up with your primary care physician tomorrow. If you have any worsening or new symptoms, please return to the emergency room or call 911 Prescriptions: New tramadol 50 mg tablet 50 mg PO BID PRN (Reason: pain) Qty: 6 0RF No Action sertraline 100 mg tablet 200 mg PO DAILY montelukast 10 mg tablet 1 tab PO BEDTIME benazepril 10 mg tablet 1 tab PO QAM atorvastatin 80 mg Tablet 80 mg PO BEDTIME Qty: 30 0RF acetaminophen [Tylenol Extra Strength] 500 mg tablet 500 mg PO Q6H PRN (Reason: fever or pain) Qty: 14 0RF cyclobenzaprine 5 mg tablet 5 mg PO Q8H PRN (Reason: pain (scale score 7-10)) 5 Days Qty: 14 0RF metoclopramide HCl [Reglan] 5 mg tablet 5 mg PO Q6H PRN (Reason: nausea and vomiting) Qty: 10 0RF ondansetron 4 mg tablet,disintegrating 4 mg PO Q8H PRN (Reason: nausea and vomiting) Qty: 10 0RF calcium carbonate-vitamin D3 600 mg-5 mcg (200 unit) tablet 1 tab PO BID fluticasone propion-salmeterol 500-50 mcg/dose blister with device 1 puff inhalation BID Certavite-Antioxidant 18-400 mg-mcg tablet 1 tab PO DAILY Incruse Ellipta 62.5 mcg/actuation blister with device 1 puff inhalation DAILY isosorbide mononitrate 60 mg tablet extended release 24 hr 1 tab PO DAILY trazodone 100 mg tablet 200 mg PO BEDTIME omeprazole 20 mg capsule,delayed release(DR/EC) 1 cap PO DAILY trazodone 100 mg tablet 100 mg PO BEDTIME PRN (Reason: Insomnia) Rx Instructions: If addition to 200 mg if cannot sleep fluticasone propionate 50 mcg/actuation [place],Suspension 1 spray INTRANASAL DAILY PRN (Reason: Allergy Symptoms) Rx Instructions: administer into each nostril heparin(porcine) in 0.45% NaCl 25,000 unit/250 mL Parenteral Solution 25,000 unit continuous IV infusion .Q0M Qty: 6000 0RF aspirin 81 mg Tablet,Chewable 81 mg PO DAILY Qty: 1 0RF heparin (porcine) 5,000 unit/mL Solution 2,100 unit IVPUSH PROTOCOL BOLUS PRN (Reason: 40 Unit/Kg - Heparin Protocol) Qty: 1 0RF heparin (porcine) 5,000 unit/mL Solution 4,100 unit IVPUSH PROTOCOL BOLUS PRN (Reason: 80 Unit/Kg - Heparin Protocol) Qty: 1 0RF morphine 4 mg/mL Syringe 2 mg IVPUSH Q4H PRN (Reason: Pain, Severe (Pain Scale 7-10)) Qty: 10 0RF Protocol: Hold for RR < HOLD and contact provider for RR < (bpm): 12 Rx Instructions: Partial Fill upon patient request. ondansetron HCl (PF) 4 mg/2 mL Solution 4 mg IVPUSH Q8H PRN (Reason: Nausea And Vomiting) Qty: 10 0RF metoprolol tartrate 25 mg tablet 12.5 mg PO Q6H Qty: 1 0RF acetaminophen [Tylenol Extra Strength] 500 mg tablet 500 mg PO Q6H PRN (Reason: fever or pain) Qty: 14 0RF lidocaine [Lidoderm] 5 % adhesive patch,medicated 1 patch topical DAILY MDD remove after 12 hours PRN (Reason: pain) Qty: 30 0RF Rx Instructions: leave on most painful area for up to 12 hrs cyclobenzaprine 5 mg tablet 5 mg PO Q8H PRN (Reason: pain (scale score 7-10)) 5 Days Qty: 14 0RF cefuroxime axetil 250 mg tablet 250 mg PO BID 7 Days Qty: 14 0RF acetaminophen [Tylenol Extra Strength] 500 mg tablet 500 mg PO Q6H PRN (Reason: fever or pain) Qty: 14 0RF lidocaine [Lidoderm] 5 % adhesive patch,medicated 1 patch topical DAILY MDD remove after 12 hours PRN (Reason: pain) Qty: 30 0RF Rx Instructions: leave on most painful area for up to 12 hrs naproxen 500 mg tablet 500 mg PO BID PRN (Reason: pain) 7 Days Qty: 20 0RF cyclobenzaprine 5 mg tablet 5 mg PO Q8H PRN (Reason: pain (scale score 7-10)) 5 Days Qty: 14 0RF doxycycline hyclate 100 mg tablet 100 mg PO Q12H 7 Days Qty: 14 0RF benzonatate 100 mg capsule 100 mg PO TID PRN (Reason: cough) 5 Days Qty: 15 0RF
[2023-05-12 18:18] VITALS: BP 124/68; BP 150/78; PULSE 67; PULSE 75; RESP 17; TEMP 36.4; O2SAT 95; BMI 24.0
== END 2023-05-12 21:46 | disposition home or self-care (01) ==
PROVIDERS: Emergency Provider Emergency Medicine; PCP Family Medicine
DX: M25.561 Pain in right knee (principal); Z79.899 Other long term (current) drug therapy
CPT/HCPCS: 73562; 99282; 99283

== ENCOUNTER 2023-06-09 12:08 | Outpatient (REF) | payer OTHER, SELFPAY ==
--- NOTE | ~2023-06-09 | XR_ITS ---
EXAMINATION: XR LUMBOSACRAL SPINE CLINICAL INFORMATION: Right-sided lower back pain with right-sided sciatica. COMPARISON: CT abdomen/pelvis dated 12/30/2022. TECHNIQUE: Three views of the lumbosacral spine. FINDINGS: Normal vertebral body alignment. The lumbar lordosis is maintained. No acute fracture or subluxation. No loss of vertebral body height. Multilevel loss of intervertebral disc height with endplate osteophytes, most prominent at L4-L5 and L5-S1. Bilateral facet arthropathy at L4-L5 and L5-S1. No concerning lytic or blastic osseous lesion. Surgical clips within the right upper quadrant. No abnormal soft tissue calcification. XR/XR lumbar spine 2-3V IMPRESSION: Multilevel degenerative disc disease, most prominent at L4-L5 and L5-S1.
== END 2023-06-09 12:09 | disposition home or self-care (01) ==
LOC: HO.HHCX 12:08
PROVIDERS: Visit Provider Family Medicine
DX: M54.41 Lumbago with sciatica, right side (principal)
CPT/HCPCS: 72100

== ENCOUNTER 2024-01-04 13:44 | Emergency (ER) | payer OTHER, SELFPAY ==
--- NOTE | ~2024-01-04 | CT_ITS ---
EXAMINATION: CT ABDOMEN AND PELVIS WITHOUT CONTRAST CLINICAL INFORMATION: Abdominal pain with nausea and vomiting COMPARISON: None available. TECHNIQUE: Multidetector volumetric imaging was performed from the superior aspect of the liver through the pubic symphysis. Sagittal and coronal reformatted images were obtained on the technologist's workstation. This CT examination was performed using dose optimization techniques as appropriate, variously including the following: *Automated exposure control *Adjustment of mA and/or kV according to patient size (this includes techniques or standardized protocols for targeted exams where dose is matched to indication/reason for exam; i.e. extremities or head) *Use of iterative reconstruction technique DLP: 351 mGy-cm FINDINGS: LUNG BASES: Bibasilar atelectasis is present. No consolidation or effusions. LIVER, GALLBLADDER, AND BILIARY TREE: The liver is normal in size, shape, and attenuation. No focal hepatic lesion or biliary ductal dilatation is present. The gallbladder has been surgically removed. PANCREAS: Unremarkable. SPLEEN: Unremarkable. ADRENAL GLANDS: Unremarkable. KIDNEYS AND URETERS: The kidneys are normal in size, shape, and attenuation. 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 No perinephric stranding. BLADDER: Marked symmetric thickening of the bladder wall likely due to underfilling. GASTROINTESTINAL TRACT: The small and large bowel are unremarkable. The appendix is normal. ABDOMINAL WALL: No significant hernia is appreciated. LYMPH NODES: Normal. VASCULAR: Unremarkable. PELVIC VISCERA: Unremarkable. OSSEOUS STRUCTURES: Marked degenerative change seen at L5-S1 CT/CT abdomen pelvis wo IV con IMPRESSION: A cause for the patient's abdominal pain, nausea and vomiting has not been found. Incidental findings as described above. Fleischner guidelines were followed.
--- NOTE | ~2024-01-04 | US_ITS ---
EXAMINATION: US ABDOMEN LIMITED CLINICAL INFORMATION: Abdominal pain with elevated LFTs. COMPARISON: CT scan earlier today, CT abdomen pelvis 12/30/2022 TECHNIQUE: Real-time imaging of the liver, gallbladder and common bile duct only. FINDINGS: LIVER: The liver is normal in size. The liver contour is normal. Parenchymal echogenicity is normal. No focal hepatic lesion. There is no intrahepatic biliary duct dilatation seen. GALLBLADDER: Surgically absent. COMMON BILE DUCT: Caliber measuring 0.4 to 1.2 cm in diameter. Dilatation may be seen after cholecystectomy. Findings were similar on the CT scan performed earlier today as well as chest CT from 12/30/2022 US/US abdomen limited IMPRESSION: Mildly dilated common bile duct similar to the CT scan which may be normal after cholecystectomy. No intrahepatic biliary ductal dilatation is seen. If abdominal pain continues and LFTs remain elevated, MRCP may be useful for further evaluation to exclude a obstructing distal common bile duct lesion.
[2024-01-04 13:48] VITALS: BP 162/70; PULSE 74; O2SAT 97
[2024-01-04 14:02] VITALS: BMI 20.6
--- NOTE | 2024-01-04 14:05 | ED.ABDPAIN ---
HPI - Abdominal Pain General Chief Complaint: Nausea/Vomiting/Diarrhea Stated Complaint: n/v, weakness Time Seen by Provider: 01/04/24 13:51 Source: patient, family ( spouse) and permastone applicator Mode of arrival: EMS Limitations: no limitations History of Present Illness HPI narrative: 78-year-old female came in for evaluation of abdominal pain, nausea, vomiting, and diarrhea for the past week. No sick contacts, no exposure to bad food, no recent travel recent use of antibiotic, last BM was this morning described as loose brown, no blood in the vomit or in stool. Patient been having generalized weakness and decreased p.o. intake. Past surgical history is significant for Cholecystectomy. Related Data Home Medications ?Medication ?Instructions ?Recorded ?Confirmed benazepril 10 mg tablet 1 tab PO QAM 11/20/20 08/27/22 montelukast 10 mg tablet 1 tab PO BEDTIME 11/20/20 08/27/22 sertraline 100 mg tablet 200 mg PO DAILY 11/20/20 08/27/22 calcium carbonate 600 mg-vitamin 1 tab PO BID 08/27/22 08/27/22 D3 5 mcg (200 unit) tablet fluticasone 500 mcg-salmeterol 50 1 puff inhalation BID 08/27/22 08/27/22 mcg/dose blistr powdr for inhalation fluticasone propionate 50 1 spray intranasal DAILY PRN 08/27/22 08/27/22 mcg/actuation nasal Allergy Symptoms spray,suspension isosorbide mononitrate 60 mg 1 tab PO DAILY 08/27/22 08/27/22 tablet,extended release 24 hr multivitamin-ferrous 1 tab PO DAILY 08/27/22 08/27/22 fumarate-folic acid 18 mg-400 mcg tablet (Certavite-Antioxidant) omeprazole 20 mg capsule,delayed 1 cap PO DAILY 08/27/22 08/27/22 release trazodone 100 mg tablet 100 mg PO BEDTIME PRN Insomnia 08/27/22 08/27/22 trazodone 100 mg tablet 200 mg PO BEDTIME 08/27/22 08/27/22 umeclidinium 62.5 mcg/actuation 1 puff inhalation DAILY 08/27/22 08/27/22 blister powder for inhalation (Incruse Ellipta) Previous Rx's ?Medication ?Instructions ?Recorded atorvastatin 80 mg tablet 80 mg PO BEDTIME #30 tabs 05/12/21 acetaminophen 500 mg tablet 500 mg PO Q6H PRN fever or pain 04/22/22 (Tylenol Extra Strength) #14 tabs cyclobenzaprine 5 mg tablet 5 mg PO Q8H PRN pain (scale score 04/22/22 7-10) 5 days #14 tabs metoclopramide HCl 5 mg tablet 5 mg PO Q6H PRN nausea and 08/06/22 (Reglan) vomiting #10 tabs aspirin 81 mg chewable tablet 81 mg PO DAILY #1 tab 08/28/22 heparin (porcine) 25,000 unit/250 25,000 unit (250 mL) continuous IV 08/28/22 mL in 0.45 % sodium chloride IV infusion .Q0M #6,000 mL soln heparin (porcine) 5,000 unit/mL 2,100 unit (0.42 mL) IVPUSH 08/28/22 injection solution PROTOCOL BOLUS PRN 40 Unit/Kg - Heparin Protocol #1 mL heparin (porcine) 5,000 unit/mL 4,100 unit (0.82 mL) IVPUSH 08/28/22 injection solution PROTOCOL BOLUS PRN 80 Unit/Kg - Heparin Protocol #1 mL metoprolol tartrate 25 mg tablet 12.5 mg (1/2 x 25 mg) PO Q6H #1 tab 08/28/22 morphine 4 mg/mL intravenous 2 mg IVPUSH Q4H PRN Pain, Severe 08/28/22 syringe (Pain Scale 7-10) #10 mL ondansetron HCl (PF) 4 mg/2 mL 4 mg (2 mL) IVPUSH Q8H PRN Nausea 08/28/22 injection solution And Vomiting #10 mL ondansetron 4 mg disintegrating 4 mg PO Q8H PRN nausea and 11/27/22 tablet vomiting #10 tabs acetaminophen 500 mg tablet 500 mg PO Q6H PRN fever or pain 12/30/22 (Tylenol Extra Strength) #14 tabs cyclobenzaprine 5 mg tablet 5 mg PO Q8H PRN pain (scale score 12/30/22 7-10) 5 days #14 tabs lidocaine 5 % topical patch 1 patch topical DAILY PRN pain #30 12/30/22 (Lidoderm) ea naproxen 500 mg tablet 500 mg PO BID PRN pain 7 days #20 12/30/22 tabs benzonatate 100 mg capsule 100 mg PO TID PRN cough 5 days #15 02/10/23 caps doxycycline hyclate 100 mg tablet 100 mg PO Q12H 7 days #14 tabs 02/10/23 acetaminophen 500 mg tablet 500 mg PO Q6H PRN fever or pain 03/22/23 (Tylenol Extra Strength) #14 tabs cyclobenzaprine 5 mg tablet 5 mg PO Q8H PRN pain (scale score 03/22/23 7-10) 5 days #14 tabs lidocaine 5 % topical patch 1 patch topical DAILY PRN pain #30 03/22/23 (Lidoderm) ea cefuroxime axetil 250 mg tablet 250 mg PO BID 7 days #14 tabs 03/24/23 tramadol 50 mg tablet 50 mg PO BID PRN pain #6 tabs 05/12/23 Allergies Allergy/AdvReac Type Severity Reaction Status Date / Time No Known Allergies Allergy Verified 01/04/24 14:06 Review of Systems Review of Systems All other systems are reviewed and are negative Constitutional: Reports as per HPI and Reports no additional constitutional complaints Eyes: Reports as per HPI and Reports no additional eye complaints Reports system reviewed and no additional complaints, except as documented Cardiovascular: Reports as per HPI and Reports no additional cardiovascular complaints Respiratory: Reports as per HPI and Reports no additional respiratory complaints Gastrointestinal: Reports as per HPI and Reports no additional gastrointestinal complaints Genitourinary: Reports no additional female genitourinary complaints Musculoskeletal: Reports no additional musculoskeletal complaints Skin/Breast: Reports system reviewed and no additional complaints, except as docu Psychiatric: Reports no additional psychiatric complaints Endocrine: Reports no additional endocrine complaints Hematologic/Lymphatic: Reports no additional hematologic/lymphatic complaints Allergic/Immunologic: Reports no additional allergic/immunologic complaints Reports system reviewed and no additional complaints, except as documented and Reports Abnormal speech present [facility] Past Medical History Medical History Multinodular goiter (nontoxic) Pulmonary embolism Asthma Pancreatitis Diabetes Hypertension High cholesterol GERD (gastroesophageal reflux disease) Aortic insufficiency Depression NSTEMI (non-ST elevated myocardial infarction) Surgical History No history of previous surgery Family History Family History Father Hypertension Heart disease Mother Hypertension Heart disease Social History Social History Household Members: Family and Other Household Members Other:: daughter is wafer slicer Housing: Apartment Do you presently have visiting nurse or other home services: No Alcohol intake: never Patient Tobacco Use Status: Never used Tobacco Smoked in Last 30 Days: No Second Hand Smoke Exposure: No Use of substances other than those prescribed or required for medical reasons: No Advance Directives: Yes Advance Directives Information Provided: Yes Advance Directives on File: No service: No Current occupational status: unemployed and disabled Physical Exam ED Vital Signs: Vital Signs - 24 hr 01/04/24 14:32 01/04/24 15:54 Temperature 98 F 97.6 F Pulse Rate 68 73 Respiratory Rate 18 13 Blood Pressure 140/76 H 134/72 Pulse Oximetry 94 94 Oxygen Delivery Method Room Air Room Air BMI result Body Mass Index 20.6 Vital signs have been reviewed and appear to be correct. Blood pressure elevated. Heart rate normal. Respiratory rate normal. Temperature normal. Oxygen saturation normal. Appearance: Alert. Oriented X3. No acute distress. Head: Normal external exam. Normocephalic. Atraumatic. No [place] signs noted. No raccoon eyes noted Eyes: PERRLA. EOMI. Conjunctiva and sclera normal. Eyelids normal. ENT: TM's Normal. Pharynx normal. Uvula midline. Moist mucous membranes. No trismus noted. No drooling noted. No muffled voice noted. Neck: Normal inspection. Neck supple. FROM. No adenopathy. Thyroid Normal. No meningeal signs. No neck mass noted. CVS: Normal heart rate and rhythm. Heart sound normal. No murmurs noted. Pulses normal throughout. Respiratory: No respiratory distress. Painless inspiration. Breath sounds normal. No wheezes/rales/rhonchi noted. Chest nontender. No accessory muscle usage noted or decreased air movement noted. Abdomen: Soft and nontender. Bowel sounds normal in all 4 quadrants. No distention noted. No organomegaly noted. No visible injury noted. Back: No CVA tenderness. Full range of motion noted. Skin: Skin warm and dry. Normal skin color. Normal skin turgor. No rashes/lesions/lacerations noted. Extremities: No lower extremity edema. Extremities exhibit normal range of motion. Extremities nontender. Neuro: Oriented X 3. Cranial nerve exam: II-XII are grossly intact No motor deficit. No sensory deficit. Reflexes normal. Course Reevaluation(s) Reevaluation #1: Patient received IV fluid feels slightly better, will give Toradol 1 time in the ED, CT / ultrasound is unremarkable except for nonspecific CBD dilatation without intrahepatic duct dilatation. Patient is able to tolerate p.o. intake while in the emergency department. Time: 18:12 Medical Decision Making Differential Diagnosis Differential Diagnoses: The differential diagnosis associated with the presentation includes ( Colitis, diverticulitis, acute appendicitis, pancreatitis, dehydration, electrolyte derangement, severe anemia.) Admission/Observation Consideration of admission/observation: Escalation of care including admission/observation considered Lab Data MDM Lab Attestation statement: I reviewed the patient's lab results. 01/04/24 14:44 01/04/24 14:44 Labs: Lab Results 01/04/24 01/04/24 Range/Units 14:40 14:44 WBC 3.5 L (4.8-10.8) X10*3/uL RBC 4.20 (4.20-5.50) X10*6/uL Hgb 12.0 (12.0-16.0) g/dl Hct 37.8 (37.0-47.0) % MCV 90.0 (80.0-98.0) fL MCH 28.6 (27.0-33.0) pg MCHC 31.7 (31.0-35.0) g/dl RDW 13.2 (11.0-16.0) % Plt Count 191 (160-400) X10*3/uL MPV 10.9 (9.4-12.3) fL Immature Gran % (Auto) 0.3 (0.0-0.4) % Neut % (Auto) 43.9 L (45-73) % Lymph % (Auto) 34.0 (20-40) % [place] % (Auto) 14.6 H (2-11) % Eos % (Auto) 6.3 H (0-4) % Baso % (Auto) 0.9 (0-2) % Lymph # (Auto) 1.2 (1.2-4.9) X10*3/uL [place] # (Auto) 0.5 (0.1-1.2) X10*3/uL Eos # (Auto) 0.2 (0.0-0.4) X10*3/uL Baso # (Auto) 0.0 (0.0-0.2) X10*3/uL Abs Immat Gran (auto) 0.01 (0.00-0.03) X10*3/uL Absolute Neuts (auto) 1.5 L (2.0-8.3) x10*3/uL Absolute Nucleated RBC 0.000 (0.0-0.012) X10*3/uL Nucleated RBC % (auto) 0.0 (0.0-0.2) /100WBC Sodium 140 (135-145) mmol/L Potassium 4.6 (3.3-5.1) mmol/L Chloride 107 (96-108) mmol/L Carbon Dioxide 26 (22-29) mmol/L Anion Gap 12 (12-20) BUN 15 (9-16) mg/dL Creatinine 0.89 (0.5-1.4) mg/dL Estim Creat Clear Calc 41.1 Estimated GFR > 60 Random Glucose 147 H (60-115) mg/dL Calcium 9.1 D (8.4-10.2) mg/dL Total Bilirubin 0.4 (0.0-1.0) mg/dL Direct Bilirubin 0.2 (0.0-0.5) mg/dL AST 73 H (5-31) U/L ALT 133 H (0-31) U/L Alkaline Phosphatase 217 H (39-117) U/L Troponin I High Sens < 2.7 (<3.5-17.0) ng/L B-Natriuretic Peptide 68 (<100) pg/mL Total Protein 6.9 (6.5-8.0) g/dL Albumin 3.4 L (3.5-5.0) g/dL Lipase 37 (8-78) U/L Urine Color Yellow Urine Appearance Clear Urine pH 5.5 (5.0-9.0) Ur Specific [place] 1.010 (1.005-1.025) Urine Protein Negative (Neg-Trace) mg/dL Urine Glucose (UA) Negative (Negative) mg/dL Urine Ketones Negative (Negative) mg/dL Urine Blood Negative (Negative) Urine Nitrite Negative (Negative) Ur Leukocyte Esterase Negative (Negative) Influenza Type A (PCR) NEGATIVE (Negative) Influenza Type B (PCR) NEGATIVE (Negative) RSV RNA Qual (PCR) NEGATIVE (Negative) SARS-CoV-2 RNA (RT-PCR) NEGATIVE (Negative) Independent Interpretation I performed an independent interpretation of an: Ultrasound ( RUQ:Mildly dilated common bile duct similar to the CT scan which may be normal after cholecystectomy. No intrahepatic biliary ductal dilatation is seen. If abdominal pain continues and LFTs remain elevated, MRCP may be useful for further evaluation to exclude a obstructing distal common bile duct ) and CT Scan ( Abdomen pelvis:A cause for the patient's abdominal pain, nausea and vomiting has not been found. Incidental findings as described above. ) Radiology Impression Discussion of test interpretation with radiology: I have reviewed the radiologist's reading. Medications Administered Discontinued Medications Generic Name Dose Route Start Last Admin Trade Name Freq PRN Reason Stop Dose Admin Famotidine 20 mg 01/04/24 14:03 01/04/24 15:17 Famotidine/Pf 20 Mg/2 Ml Vial IVPUSH 01/04/24 14:04 20 mg ONCE ONE Administration Sodium Chloride 1,000 mls @ 999 mls/hr 01/04/24 13:55 01/04/24 15:17 Ns IV 01/04/24 14:55 999 mls/hr .Q1H1M ONE Administration Ondansetron HCl 4 mg 01/04/24 14:03 01/04/24 15:17 Ondansetron Hcl 4 Mg/2 Ml Vial IVPUSH 01/04/24 14:04 4 mg ONCE ONE Administration Discharge Plan Discharge Clinical Impression: Gastroenteritis Patient Disposition: Home, Self-Care Instructions: Gastroenteritis (ED) Prescriptions: No Action sertraline 100 mg tablet 200 mg PO DAILY montelukast 10 mg tablet 1 tab PO BEDTIME benazepril 10 mg tablet 1 tab PO QAM atorvastatin 80 mg Tablet 80 mg PO BEDTIME Qty: 30 0RF acetaminophen [Tylenol Extra Strength] 500 mg tablet 500 mg PO Q6H PRN (Reason: fever or pain) Qty: 14 0RF cyclobenzaprine 5 mg tablet 5 mg PO Q8H PRN (Reason: pain (scale score 7-10)) 5 Days Qty: 14 0RF metoclopramide HCl [Reglan] 5 mg tablet 5 mg PO Q6H PRN (Reason: nausea and vomiting) Qty: 10 0RF ondansetron 4 mg tablet,disintegrating 4 mg PO Q8H PRN (Reason: nausea and vomiting) Qty: 10 0RF calcium carbonate-vitamin D3 600 mg-5 mcg (200 unit) tablet 1 tab PO BID fluticasone propion-salmeterol 500-50 mcg/dose blister with device 1 puff inhalation BID Certavite-Antioxidant 18-400 mg-mcg tablet 1 tab PO DAILY Incruse Ellipta 62.5 mcg/actuation blister with device 1 puff inhalation DAILY isosorbide mononitrate 60 mg tablet extended release 24 hr 1 tab PO DAILY trazodone 100 mg tablet 200 mg PO BEDTIME omeprazole 20 mg capsule,delayed release(DR/EC) 1 cap PO DAILY trazodone 100 mg tablet 100 mg PO BEDTIME PRN (Reason: Insomnia) Rx Instructions: If addition to 200 mg if cannot sleep fluticasone propionate 50 mcg/actuation [place],Suspension 1 spray INTRANASAL DAILY PRN (Reason: Allergy Symptoms) Rx Instructions: administer into each nostril heparin(porcine) in 0.45% NaCl 25,000 unit/250 mL Parenteral Solution 25,000 unit continuous IV infusion .Q0M Qty: 6000 0RF aspirin 81 mg Tablet,Chewable 81 mg PO DAILY Qty: 1 0RF heparin (porcine) 5,000 unit/mL Solution 2,100 unit IVPUSH PROTOCOL BOLUS PRN (Reason: 40 Unit/Kg - Heparin Protocol) Qty: 1 0RF heparin (porcine) 5,000 unit/mL Solution 4,100 unit IVPUSH PROTOCOL BOLUS PRN (Reason: 80 Unit/Kg - Heparin Protocol) Qty: 1 0RF morphine 4 mg/mL Syringe 2 mg IVPUSH Q4H PRN (Reason: Pain, Severe (Pain Scale 7-10)) Qty: 10 0RF Protocol: Hold for RR < HOLD and contact provider for RR < (bpm): 12 Rx Instructions: Partial Fill upon patient request. ondansetron HCl (PF) 4 mg/2 mL Solution 4 mg IVPUSH Q8H PRN (Reason: Nausea And Vomiting) Qty: 10 0RF metoprolol tartrate 25 mg tablet 12.5 mg PO Q6H Qty: 1 0RF acetaminophen [Tylenol Extra Strength] 500 mg tablet 500 mg PO Q6H PRN (Reason: fever or pain) Qty: 14 0RF lidocaine [Lidoderm] 5 % adhesive patch,medicated 1 patch topical DAILY MDD remove after 12 hours PRN (Reason: pain) Qty: 30 0RF Rx Instructions: leave on most painful area for up to 12 hrs cyclobenzaprine 5 mg tablet 5 mg PO Q8H PRN (Reason: pain (scale score 7-10)) 5 Days Qty: 14 0RF cefuroxime axetil 250 mg tablet 250 mg PO BID 7 Days Qty: 14 0RF acetaminophen [Tylenol Extra Strength] 500 mg tablet 500 mg PO Q6H PRN (Reason: fever or pain) Qty: 14 0RF lidocaine [Lidoderm] 5 % adhesive patch,medicated 1 patch topical DAILY MDD remove after 12 hours PRN (Reason: pain) Qty: 30 0RF Rx Instructions: leave on most painful area for up to 12 hrs naproxen 500 mg tablet 500 mg PO BID PRN (Reason: pain) 7 Days Qty: 20 0RF cyclobenzaprine 5 mg tablet 5 mg PO Q8H PRN (Reason: pain (scale score 7-10)) 5 Days Qty: 14 0RF doxycycline hyclate 100 mg tablet 100 mg PO Q12H 7 Days Qty: 14 0RF benzonatate 100 mg capsule 100 mg PO TID PRN (Reason: cough) 5 Days Qty: 15 0RF tramadol 50 mg tablet 50 mg PO BID PRN (Reason: pain) Qty: 6 0RF Referrals: Tiffany Kent MD [Primary Care Provider] - Print Language: Luxembourgish
[2024-01-04 14:32] VITALS: BP 140/76; PULSE 68; RESP 18; TEMP 36.6; O2SAT 94
[2024-01-04 14:49] LABS: MANUAL DIFF FLAG NO
[2024-01-04 14:53] LABS: Basophils Percent Auto 0.9 % (0-2); Eosinophils Absolute Auto 0.2 X10*3/uL (0.0-0.4); Eosinophils Percent Auto 6.3 % (0-4); Hematocrit 37.8 % (37.0-47.0); Imm Gran Abs Auto 0.01 X10*3/uL (0.00-0.03); Imm Gran Pct Auto 0.3 % (0.0-0.4); Lymphocytes Absolute Auto 1.2 X10*3/uL (1.2-4.9); Mean Corpuscular HGB Conc 31.7 g/dl (31.0-35.0); Mean Corpuscular Hemoglobin 28.6 pg (27.0-33.0); Mean Platelet Volume 10.9 fL (9.4-12.3); Monocytes Absolute Auto 0.5 X10*3/uL (0.1-1.2); Monocytes Percent Auto 14.6 % (2-11); Neutrophils Absolute Auto 1.5 x10*3/uL (2.0-8.3); Neutrophils Percent Auto 43.9 % (45-73); Platelet Count 191 X10*3/uL (160-400); Red Cell Distribution Width 13.2 % (11.0-16.0); White Blood Count 3.5 X10*3/uL (4.8-10.8)
[2024-01-04 14:55] LABS: Appearance Urine Clear; Color Urine Yellow; Glucose Urine UA Negative (Negative); Leukocyte Esterase Urine Negative (Negative); Nitrite Urine Negative (Negative); PH 5.5 (5.0-9.0); Urine Blood Negative (Negative); Urine Ketones Negative (Negative); Urine Protein Negative (Neg-Trace)
[2024-01-04 15:07] LABS: Alanine Aminotransferase 133 U/L (0-31); Albumin Level 3.4 g/dL (3.5-5.0); Alkaline Phosphatase 217 U/L (39-117); Anion Gap 12 (12-20); Aspartate Amino Transferase 73 U/L (5-31); Bilirubin Direct 0.2 mg/dL (0.0-0.5); Bilirubin Total 0.4 mg/dL (0.0-1.0); Blood Urea Nitrogen 15 mg/dL (9-16); Calcium 9.1 mg/dL (8.4-10.2); Carbon Dioxide 26 mmol/L (22-29); Chloride 107 mmol/L (96-108); Creatinine Clr Calc Pharmacy 41.1; Estimated Glomerular Filt Rate > 60; Glucose Random 147 mg/dL (60-115); Lipase 37 U/L (8-78); Potassium 4.6 mmol/L (3.3-5.1); Sodium 140 mmol/L (135-145); Total Protein 6.9 g/dL (6.5-8.0)
[2024-01-04 15:14] LABS: B Type Natriuretic Peptide 68 pg/mL (<100); Troponin-I High Sensitivity < 2.7 ng/L (<3.5-17.0)
[2024-01-04] MEDS: ondansetron HCL 4 MG/2 ML VIAL IVPUSH (15:17)
[2024-01-04] MEDS: Famotidine/PF 20 MG/2 ML VIAL IVPUSH (15:17)
[2024-01-04] MEDS: 0.9 % Sodium Chloride 1,000 ML 999 ML IV (15:17)
[2024-01-04 15:33] LABS: Influenza A PCR NEGATIVE (Negative); Influenza B PCR NEGATIVE (Negative); Resp Syncy Virus RNA Qual PCR NEGATIVE (Negative); SARS COV2 PCR INHOUSE NEGATIVE (Negative)
[2024-01-04 15:54] VITALS: BP 134/72; PULSE 73; RESP 13; TEMP 36.4; O2SAT 94
--- NOTE | 2024-01-04 18:30 | MHC.EDTECH ---
pt being PO challenged with orders from Doctor Lai. pt was handed two packets of saltines and a cup of water
[2024-01-04 19:27] VITALS: BP 126/77; PULSE 62; RESP 14; TEMP 36.7; O2SAT 96
[2024-01-04] MEDS: Ketorolac Tromethamine 30 MG/ML VIAL IVPUSH (19:58)
[2024-01-04 20:12] VITALS: BP 132/78; PULSE 68; RESP 16; TEMP 36.7; O2SAT 97
== END 2024-01-04 20:12 | disposition home or self-care (01) ==
PROVIDERS: Emergency Provider Emergency Medicine; PCP Family Medicine
DX: K52.9 Noninfective gastroenteritis and colitis, unspecified (principal); I10 Essential (primary) hypertension; E11.9 Type 2 diabetes mellitus without complications; Z86.711 Personal history of pulmonary embolism; Z90.49 Acquired absence of other specified parts of digestive tract; Z03.818 Encounter for observation for suspected exposure to other biological agents ruled out
CPT/HCPCS: 0241U; 74176; 76705; 80048; 80076; 81003; 83690; 83880; 84484; 85025; 96361; 96374; 96375; 99284; J1885; J2405

== ENCOUNTER 2024-04-17 08:29 | Outpatient (REF) | payer OTHER, SELFPAY ==
[2024-04-17 11:55] LABS: Estimated Average Glucose 123 mg/dL; Hemoglobin A1c % 5.9 % (<6.0)
[2024-04-17 12:00] LABS: Alanine Aminotransferase 21 U/L (0-31); Albumin Level 3.9 g/dL (3.5-5.0); Alkaline Phosphatase 144 U/L (39-117); Anion Gap 12 (12-20); Aspartate Amino Transferase 26 U/L (5-31); Bilirubin Direct 0.2 mg/dL (0.0-0.5); Bilirubin Total 0.5 mg/dL (0.0-1.0); Blood Urea Nitrogen 25 mg/dL (9-16); Calcium 9.6 mg/dL (8.4-10.2); Carbon Dioxide 26 mmol/L (22-29); Chloride 108 mmol/L (96-108); Cholesterol 115 mg/dL (<200); Estimated Glomerular Filt Rate 50; Glucose Random 95 mg/dL (60-115); HDL Cholesterol 54 mg/dL (>40); LDL Cholesterol Calculated 40 mg/dL (<100); Potassium 4.3 mmol/L (3.3-5.1); Sodium 142 mmol/L (135-145); Total Protein 6.9 g/dL (6.5-8.0); Triglycerides 107 mg/dL (<150)
[2024-04-17 12:24] LABS: ~HepC Num1 0.36 S/CO (0.00-0.79); ~Hepatitis C Antibody Nonreactive (Nonreactive)
[2024-04-17 13:05] LABS: Creatinine Urine 111.68 mg/dL
== END 2024-04-17 08:30 | disposition home or self-care (01) ==
LOC: HO.HHCL 08:29
PROVIDERS: Visit Provider Family Medicine
DX: E11.9 Type 2 diabetes mellitus without complications (principal); Z11.59 Encounter for screening for other viral diseases
CPT/HCPCS: 36415; 80048; 80061; 80076; 82043; 82570; 83036; 86803

== ENCOUNTER 2024-05-24 07:57 | Emergency (ER) | payer OTHER, SELFPAY ==
--- NOTE | ~2024-05-24 | CT_ITS ---
EXAMINATION: CT ABDOMEN AND PELVIS WITH CONTRAST CLINICAL INFORMATION: Lower abdominal pain COMPARISON: 01/04/2024 TECHNIQUE: Multidetector volumetric images were obtained from the superior aspect of the liver through the pubic symphysis following administration 85 mL of Omnipaque 350 intravenous contrast. Sagittal and coronal reformatted images were obtained on the technologist's workstation. Oral contrast: No This CT examination was performed using dose optimization techniques as appropriate, variously including the following: *Automated exposure control *Adjustment of mA and/or kV according to patient size (this includes techniques or standardized protocols for targeted exams where dose is matched to indication/reason for exam; i.e. extremities or head) *Use of iterative reconstruction technique DLP: 377 mGy-cm FINDINGS: LUNG BASES: The visualized lung bases are unremarkable. LIVER, GALLBLADDER, AND BILIARY TREE: No focal hepatic mass. Prominence to the intrahepatic biliary tree unchanged in this postcholecystectomy patient. Common duct distended as it was on the prior December study likely chronic. The gallbladder surgically absent. Surgical clips are seen in the gallbladder fossa. PANCREAS: Slight chronic distention of the pancreatic duct. No focal mass or peripancreatic collection. SPLEEN: Unremarkable. ADRENAL GLANDS: Unremarkable. KIDNEYS AND URETERS: The kidneys are normal in size, shape, and attenuation. No hydronephrosis, hydroureter, or calculi seen. No perinephric stranding. BLADDER: Unremarkable. GASTROINTESTINAL TRACT: No bowel obstruction or left lower quadrant inflammatory change. ABDOMINAL WALL: Small fat-containing umbilical hernia. LYMPH NODES: Normal. VASCULAR: Unremarkable. PELVIC VISCERA: Unremarkable. OSSEOUS STRUCTURES: Spondylitic change in the lower lumbar spine and disc space narrowing at L5-S1 but no fracture. CT/CT abdomen pelvis w IV con IMPRESSION: No evidence for an acute inflammatory process. Stable distention of the biliary tree. Fleischner guidelines were followed. Electronically signed by: Francois Ward MD 05/24/2024 11:54 AM EDT
[2024-05-24 08:13] VITALS: BP 173/65; PULSE 62; RESP 16; TEMP 36.6; O2SAT 96; BMI 22.5
[2024-05-24 08:19] LABS: MANUAL DIFF FLAG NO
[2024-05-24 08:20] LABS: Basophils Percent Auto 0.7 % (0-2); Eosinophils Absolute Auto 0.2 X10*3/uL (0.0-0.4); Eosinophils Percent Auto 5.5 % (0-4); Hematocrit 39.8 % (37.0-47.0); Hemoglobin 13.1 g/dl (12.0-16.0); Imm Gran Abs Auto 0.01 X10*3/uL (0.00-0.03); Imm Gran Pct Auto 0.2 % (0.0-0.4); Lymphocytes Absolute Auto 1.7 X10*3/uL (1.2-4.9); Lymphocytes Percent Auto 39.6 % (20-40); Mean Corpuscular HGB Conc 32.9 g/dl (31.0-35.0); Mean Corpuscular Hemoglobin 29.4 pg (27.0-33.0); Mean Corpuscular Volume 89.2 fL (80.0-98.0); Mean Platelet Volume 11.2 fL (9.4-12.3); Monocytes Absolute Auto 0.6 X10*3/uL (0.1-1.2); Monocytes Percent Auto 14.5 % (2-11); Neutrophils Absolute Auto 1.7 x10*3/uL (2.0-8.3); Neutrophils Percent Auto 39.5 % (45-73); Platelet Count 184 X10*3/uL (160-400); Red Blood Count 4.46 X10*6/uL (4.20-5.50); White Blood Count 4.3 X10*3/uL (4.8-10.8)
[2024-05-24 08:27] LABS: Appearance Urine Clear; Color Urine Yellow; Glucose Urine UA Negative (Negative); Leukocyte Esterase Urine Small (1+) (Negative); Nitrite Urine Negative (Negative); PH 6.5 (5.0-9.0); Specific Gravity - Urine 1.015 (1.005-1.025); UMIC TRIGGER UACC YES; Urine Blood Negative (Negative); Urine Ketones Negative (Negative); Urine Protein Negative (Neg-Trace)
--- NOTE | 2024-05-24 08:28 | ED_ITS ---
HPI - Back Pain/Injury General Chief Complaint: Back Pain/Injury Stated Complaint: l flank pain-back pain Time Seen by Provider: 05/24/24 08:01 Source: patient and family Mode of arrival: ambulatory Limitations: no limitations History of Present Illness ED Provider: Nataly MILLER Narrative: 79 year old female w/ unclear PMHX presents w/ lower abd pain, back pain, fatigue, malaise, myalgias times few days worsening. Patient is a poor historian and tells me that the pain is everywhere. Unable to tell me exactly with the pain feels like or quantify the pain. Also reporting that she has chronic sciatica which has been bothering her more than usual. She denies urinary/bowel incontinence/retention, saddle anesthesias, fevers, chills, nausea, vomiting, headache, vision changes, dizziness, weakness, chest pain or shortness of breath. No sick contacts. Related Data Home Medications ?Medication ?Instructions ?Recorded ?Confirmed benazepril 10 mg tablet 1 tab PO QAM 11/20/20 08/27/22 montelukast 10 mg tablet 1 tab PO BEDTIME 11/20/20 08/27/22 sertraline 100 mg tablet 200 mg PO DAILY 11/20/20 08/27/22 calcium carbonate 600 mg-vitamin 1 tab PO BID 08/27/22 08/27/22 D3 5 mcg (200 unit) tablet fluticasone 500 mcg-salmeterol 50 1 puff inhalation BID 08/27/22 08/27/22 mcg/dose blistr powdr for inhalation fluticasone propionate 50 1 spray intranasal DAILY PRN 08/27/22 08/27/22 mcg/actuation nasal Allergy Symptoms spray,suspension isosorbide mononitrate 60 mg 1 tab PO DAILY 08/27/22 08/27/22 tablet,extended release 24 hr multivitamin-ferrous 1 tab PO DAILY 08/27/22 08/27/22 fumarate-folic acid 18 mg-400 mcg tablet (Certavite-Antioxidant) omeprazole 20 mg capsule,delayed 1 cap PO DAILY 08/27/22 08/27/22 release trazodone 100 mg tablet 100 mg PO BEDTIME PRN Insomnia 08/27/22 08/27/22 trazodone 100 mg tablet 200 mg PO BEDTIME 08/27/22 08/27/22 umeclidinium 62.5 mcg/actuation 1 puff inhalation DAILY 08/27/22 08/27/22 blister powder for inhalation (Incruse Ellipta) Previous Rx's ?Medication ?Instructions ?Recorded atorvastatin 80 mg tablet 80 mg PO BEDTIME #30 tabs 05/12/21 acetaminophen 500 mg tablet 500 mg PO Q6H PRN fever or pain 04/22/22 (Tylenol Extra Strength) #14 tabs cyclobenzaprine 5 mg tablet 5 mg PO Q8H PRN pain (scale score 04/22/22 7-10) 5 days #14 tabs metoclopramide HCl 5 mg tablet 5 mg PO Q6H PRN nausea and 08/06/22 (Reglan) vomiting #10 tabs aspirin 81 mg chewable tablet 81 mg PO DAILY #1 tab 08/28/22 heparin (porcine) 25,000 unit/250 25,000 unit (250 mL) continuous IV 08/28/22 mL in 0.45 % sodium chloride IV infusion .Q0M #6,000 mL soln heparin (porcine) 5,000 unit/mL 2,100 unit (0.42 mL) IVPUSH 08/28/22 injection solution PROTOCOL BOLUS PRN 40 Unit/Kg - Heparin Protocol #1 mL heparin (porcine) 5,000 unit/mL 4,100 unit (0.82 mL) IVPUSH 08/28/22 injection solution PROTOCOL BOLUS PRN 80 Unit/Kg - Heparin Protocol #1 mL metoprolol tartrate 25 mg tablet 12.5 mg (1/2 x 25 mg) PO Q6H #1 tab 08/28/22 morphine 4 mg/mL intravenous 2 mg IVPUSH Q4H PRN Pain, Severe 08/28/22 syringe (Pain Scale 7-10) #10 mL ondansetron HCl (PF) 4 mg/2 mL 4 mg (2 mL) IVPUSH Q8H PRN Nausea 08/28/22 injection solution And Vomiting #10 mL ondansetron 4 mg disintegrating 4 mg PO Q8H PRN nausea and 11/27/22 tablet vomiting #10 tabs acetaminophen 500 mg tablet 500 mg PO Q6H PRN fever or pain 12/30/22 (Tylenol Extra Strength) #14 tabs cyclobenzaprine 5 mg tablet 5 mg PO Q8H PRN pain (scale score 12/30/22 7-10) 5 days #14 tabs lidocaine 5 % topical patch 1 patch topical DAILY PRN pain #30 12/30/22 (Lidoderm) ea naproxen 500 mg tablet 500 mg PO BID PRN pain 7 days #20 12/30/22 tabs benzonatate 100 mg capsule 100 mg PO TID PRN cough 5 days #15 02/10/23 caps doxycycline hyclate 100 mg tablet 100 mg PO Q12H 7 days #14 tabs 02/10/23 acetaminophen 500 mg tablet 500 mg PO Q6H PRN fever or pain 03/22/23 (Tylenol Extra Strength) #14 tabs cyclobenzaprine 5 mg tablet 5 mg PO Q8H PRN pain (scale score 03/22/23 7-10) 5 days #14 tabs lidocaine 5 % topical patch 1 patch topical DAILY PRN pain #30 03/22/23 (Lidoderm) ea cefuroxime axetil 250 mg tablet 250 mg PO BID 7 days #14 tabs 03/24/23 tramadol 50 mg tablet 50 mg PO BID PRN pain #6 tabs 05/12/23 acetaminophen 325 mg capsule 325 mg PO Q4H PRN pain #30 caps 05/24/24 (Tylenol) lidocaine 5 % topical patch 1 patch topical DAILY PRN pain #15 05/24/24 ea Allergies Allergy/AdvReac Type Severity Reaction Status Date / Time No Known Allergies Allergy Verified 05/24/24 09:23 Review of Systems 2 Review of Systems: Yes all other systems are reviewed and are negative PMFSH Past Medical History Attestation statement: The following information was validated with the patient. 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 Housing: Apartment Do you presently have visiting nurse or other home services: No Alcohol intake: never Patient Tobacco Use Status: Never used Tobacco Smoked in Last 30 Days: No Second Hand Smoke Exposure: No Use of substances other than those prescribed or required for medical reasons: No Advance Directives: No Advance Directives Information Provided: Yes service: No Current occupational status: unemployed and disabled Physical Exam 2 Vital Signs: Vital Signs: Last Vital Signs Temp 97.9 F 05/24/24 08:13 Pulse 62 05/24/24 08:13 Resp 16 05/24/24 08:13 BP 173/65 H 05/24/24 08:13 Pulse Ox 96 05/24/24 08:13 O2 Del Method Room Air 05/24/24 08:13 BMI result Body Mass Index 22.5 vsss Appearance: Alert.? Oriented X3.? No acute distress.? Head: Normocephalic, atraumatic, no step-offs or deformities Eyes: Pupils equal, round and reactive to light.? ENT: Pharynx normal.? Neck: Normal inspection.? Neck supple.? CVS: Normal heart rate and rhythm.? Pulses normal.? Respiratory: No respiratory distress.? Breath sounds normal.? Abdomen: Soft and + diffuse lower abd discomfort.? Skin: Skin warm and dry.? Normal skin color.? Normal skin turgor.? Extremities: No lower extremity edema.? No calf ttp. 5/5 strength to bilateral upper and lower extremities Back: No cva tenderness b/l. Neuro: Oriented X 3.? No motor deficit.? No sensory deficit. CN 2-12 intact. Ambulating with steady gait normal coordination. No saddle anesthesias Course Reevaluation(s) Reevaluation #1: CBC with baseline leukopenia. History with no acute findings needing intervention at baseline slightly elevated BUN however not deviating from her baseline. Patient's lipase within normal limits. UA with no acute findings. Patient's CT abdomen pelvis still pending. Pain much improved Time: 10:14 Reevaluation #2: CT abdomen pelvis no evidence of acute inflammatory process stable distension of the biliary tree. Patient to be discharged home feeling better. Educated patient on diagnosis and treatment plan, answered all question, patient verbalizes understanding. At this time patient will be discharged home, advised to return with new or worsening symptoms. Educated on worrisome signs and symptoms and when to return. At this time I feel comfortable discharge home. Time: 12:00 Medications Administered Discontinued Medications Generic Name Dose Route Start Last Admin Trade Name Sania PRN Reason Stop Dose Admin Iohexol 100 ml 05/24/24 09:55 05/24/24 09:55 Iohexol 350 Mg/Ml 100 Ml Infus..Btl IV 05/24/24 09:56 85 ml ONCE ONE Administration Lidocaine 1 patch 05/24/24 08:02 05/24/24 09:06 Lidocaine 4 % Patch Adh..Patch TRANSDERMA 05/24/24 08:03 1 patch ONCE ONE Administration Protocol Morphine Sulfate 4 mg 05/24/24 08:43 05/24/24 09:06 Morphine Sulfate 4 Mg/Ml Cartridge IVPUSH 05/24/24 08:44 4 mg ONCE ONE Administration Protocol Medical Decision Making Medical Decision Making [facility] Narrative: 79-year-old female presents with lower abdominal discomfort, fatigue, malaise, myalgias times a few days worsening Physical exam diffuse lower abdominal discomfort. No CVA tenderness. Patient well-appearing. Vital signs stable. History and physical exam concerning for cystitis versus UTI versus diverticulitis. Unlikely appendicitis, cholecystitis, pancreatitis, obstruction, acute abdomen. Will rule out metabolic derangements. I do not suspect acute cord compression, cauda equina, epidural abscess. Plan labs, imaging, urine Differential Diagnosis Differential Diagnoses: The differential diagnosis associated with the presentation includes History and physical exam concerning for cystitis versus UTI versus diverticulitis. Unlikely appendicitis, cholecystitis, pancreatitis, obstruction, acute abdomen. Will rule out metabolic derangements. I do not suspect acute cord compression, cauda equina, epidural abscess. Lab Data 05/24/24 08:14 05/24/24 08:14 Labs: Lab Results 05/24/24 05/24/24 Range/Units 08:14 08:19 WBC 4.3 L (4.8-10.8) X10*3/uL RBC 4.46 (4.20-5.50) X10*6/uL Hgb 13.1 (12.0-16.0) g/dl Hct 39.8 (37.0-47.0) % MCV 89.2 (80.0-98.0) fL MCH 29.4 (27.0-33.0) pg MCHC 32.9 (31.0-35.0) g/dl RDW 13.0 (11.0-16.0) % Plt Count 184 (160-400) X10*3/uL MPV 11.2 (9.4-12.3) fL Immature Gran % (Auto) 0.2 (0.0-0.4) % Neut % (Auto) 39.5 L (45-73) % Lymph % (Auto) 39.6 (20-40) % [place] % (Auto) 14.5 H (2-11) % Eos % (Auto) 5.5 H (0-4) % Baso % (Auto) 0.7 (0-2) % Lymph # (Auto) 1.7 (1.2-4.9) X10*3/uL [place] # (Auto) 0.6 (0.1-1.2) X10*3/uL Eos # (Auto) 0.2 (0.0-0.4) X10*3/uL Baso # (Auto) 0.0 (0.0-0.2) X10*3/uL Abs Immat Gran (auto) 0.01 (0.00-0.03) X10*3/uL Absolute Neuts (auto) 1.7 L (2.0-8.3) x10*3/uL Absolute Nucleated RBC 0.000 (0.0-0.012) X10*3/uL Nucleated RBC % (auto) 0.0 (0.0-0.2) /100WBC Sodium 143 (135-145) mmol/L Potassium 4.0 (3.3-5.1) mmol/L Chloride 109 H (96-108) mmol/L Carbon Dioxide 26 (22-29) mmol/L Anion Gap 12 (12-20) BUN 19 H (9-16) mg/dL Creatinine 0.84 (0.5-1.4) mg/dL Estim Creat Clear Calc 39.6 Estimated GFR > 60 Random Glucose 98 (60-115) mg/dL Calcium 9.5 (8.4-10.2) mg/dL Magnesium 2.1 (1.6-2.6) mg/dL Total Bilirubin 0.5 (0.0-1.0) mg/dL AST 25 (5-31) U/L ALT 21 (0-31) U/L Alkaline Phosphatase 157 H (39-117) U/L Total Protein 6.9 (6.5-8.0) g/dL Albumin 3.9 (3.5-5.0) g/dL Lipase 38 (8-78) U/L Urine Color Yellow Urine Appearance Clear Urine pH 6.5 (5.0-9.0) Ur Specific [place] 1.015 (1.005-1.025) Urine Protein Negative (Neg-Trace) mg/dL Urine Glucose (UA) Negative (Negative) mg/dL Urine Ketones Negative (Negative) mg/dL Urine Blood Negative (Negative) Urine Nitrite Negative (Negative) Ur Leukocyte Esterase Small (1+) H (Negative) Urine RBC 0-2 (0-2) /HPF Urine WBC 0-5 (0-5) /HPF Ur Squamous Epith Cells 0-2 (0-2) /HPF Urine Bacteria None Seen (None Seen) Hyaline Casts 0-2 (0-2) /LPF Critical Care Time Critical Care Time Critical Care Time: Yes Total Critical Care Time: 35 Attestation: I attest to this time spent taking care of the patient, obtaining history, physical, reviewing labs, imaging, treatment of patients condition +/- specialist/hospitalist consult Discharge Plan Discharge Clinical Impression: Abdominal pain, Flank pain Patient Disposition: Home, Self-Care Instructions: Abdominal Pain (ED), Flank Pain (ED) Additional Instructions: Take your medications as prescribed. If you were prescribed antibiotics today, it is important that you take your medication to their entirety, do not skip any doses, do not finish them early. Follow-up with your primary care provider this week. Return to the emergency department with new or worsening symptoms. Such as fevers, chills, chest pain, shortness of breath, nausea, vomiting, dizziness, headache, vision changes, lethargy In case of emergency call 911 CT/CT abdomen pelvis w IV con IMPRESSION: No evidence for an acute inflammatory process. Stable distention of the biliary tree. Fleischner guidelines were followed. Prescriptions: New lidocaine 5 % adhesive patch,medicated 1 patch topical DAILY PRN (Reason: pain) Qty: 15 0RF Rx Instructions: leave on most painful area for up to 12 hrs acetaminophen [Tylenol] 325 mg capsule 325 mg PO Q4H PRN (Reason: pain) Qty: 30 0RF No Action sertraline 100 mg tablet 200 mg PO DAILY montelukast 10 mg tablet 1 tab PO BEDTIME benazepril 10 mg tablet 1 tab PO QAM atorvastatin 80 mg Tablet 80 mg PO BEDTIME Qty: 30 0RF acetaminophen [Tylenol Extra Strength] 500 mg tablet 500 mg PO Q6H PRN (Reason: fever or pain) Qty: 14 0RF cyclobenzaprine 5 mg tablet 5 mg PO Q8H PRN (Reason: pain (scale score 7-10)) 5 Days Qty: 14 0RF metoclopramide HCl [Reglan] 5 mg tablet 5 mg PO Q6H PRN (Reason: nausea and vomiting) Qty: 10 0RF ondansetron 4 mg tablet,disintegrating 4 mg PO Q8H PRN (Reason: nausea and vomiting) Qty: 10 0RF calcium carbonate-vitamin D3 600 mg-5 mcg (200 unit) tablet 1 tab PO BID fluticasone propion-salmeterol 500-50 mcg/dose blister with device 1 puff inhalation BID Certavite-Antioxidant 18-400 mg-mcg tablet 1 tab PO DAILY Incruse Ellipta 62.5 mcg/actuation blister with device 1 puff inhalation DAILY isosorbide mononitrate 60 mg tablet extended release 24 hr 1 tab PO DAILY trazodone 100 mg tablet 200 mg PO BEDTIME omeprazole 20 mg capsule,delayed release(DR/EC) 1 cap PO DAILY trazodone 100 mg tablet 100 mg PO BEDTIME PRN (Reason: Insomnia) Rx Instructions: If addition to 200 mg if cannot sleep fluticasone propionate 50 mcg/actuation [place],Suspension 1 spray INTRANASAL DAILY PRN (Reason: Allergy Symptoms) Rx Instructions: administer into each nostril heparin(porcine) in 0.45% NaCl 25,000 unit/250 mL Parenteral Solution 25,000 unit continuous IV infusion .Q0M Qty: 6000 0RF aspirin 81 mg Tablet,Chewable 81 mg PO DAILY Qty: 1 0RF heparin (porcine) 5,000 unit/mL Solution 2,100 unit IVPUSH PROTOCOL BOLUS PRN (Reason: 40 Unit/Kg - Heparin Protocol) Qty: 1 0RF heparin (porcine) 5,000 unit/mL Solution 4,100 unit IVPUSH PROTOCOL BOLUS PRN (Reason: 80 Unit/Kg - Heparin Protocol) Qty: 1 0RF morphine 4 mg/mL Syringe 2 mg IVPUSH Q4H PRN (Reason: Pain, Severe (Pain Scale 7-10)) Qty: 10 0RF Protocol: Hold for RR < HOLD and contact provider for RR < (bpm): 12 Rx Instructions: Partial Fill upon patient request. ondansetron HCl (PF) 4 mg/2 mL Solution 4 mg IVPUSH Q8H PRN (Reason: Nausea And Vomiting) Qty: 10 0RF metoprolol tartrate 25 mg tablet 12.5 mg PO Q6H Qty: 1 0RF acetaminophen [Tylenol Extra Strength] 500 mg tablet 500 mg PO Q6H PRN (Reason: fever or pain) Qty: 14 0RF lidocaine [Lidoderm] 5 % adhesive patch,medicated 1 patch topical DAILY MDD remove after 12 hours PRN (Reason: pain) Qty: 30 0RF Rx Instructions: leave on most painful area for up to 12 hrs cyclobenzaprine 5 mg tablet 5 mg PO Q8H PRN (Reason: pain (scale score 7-10)) 5 Days Qty: 14 0RF cefuroxime axetil 250 mg tablet 250 mg PO BID 7 Days Qty: 14 0RF acetaminophen [Tylenol Extra Strength] 500 mg tablet 500 mg PO Q6H PRN (Reason: fever or pain) Qty: 14 0RF lidocaine [Lidoderm] 5 % adhesive patch,medicated 1 patch topical DAILY MDD remove after 12 hours PRN (Reason: pain) Qty: 30 0RF Rx Instructions: leave on most painful area for up to 12 hrs naproxen 500 mg tablet 500 mg PO BID PRN (Reason: pain) 7 Days Qty: 20 0RF cyclobenzaprine 5 mg tablet 5 mg PO Q8H PRN (Reason: pain (scale score 7-10)) 5 Days Qty: 14 0RF doxycycline hyclate 100 mg tablet 100 mg PO Q12H 7 Days Qty: 14 0RF benzonatate 100 mg capsule 100 mg PO TID PRN (Reason: cough) 5 Days Qty: 15 0RF tramadol 50 mg tablet 50 mg PO BID PRN (Reason: pain) Qty: 6 0RF Referrals: Physician,Unknown J [Primary Care Provider] - 2 days Print Language: Lebanese
[2024-05-24 08:33] LABS: Bacteria Urine None Seen (None Seen); Hyaline Casts Urine 0-2 /LPF (0-2); RBC Urine 0-2 /HPF (0-2); Squamous Epithelial Cell Urine 0-2 /HPF (0-2); UACC Culture Trigger YES; WBC Urine 0-5 /HPF (0-5)
[2024-05-24 08:33] LABS: Alanine Aminotransferase 21 U/L (0-31); Albumin Level 3.9 g/dL (3.5-5.0); Alkaline Phosphatase 157 U/L (39-117); Anion Gap 12 (12-20); Aspartate Amino Transferase 25 U/L (5-31); Bilirubin Total 0.5 mg/dL (0.0-1.0); Blood Urea Nitrogen 19 mg/dL (9-16); Calcium 9.5 mg/dL (8.4-10.2); Carbon Dioxide 26 mmol/L (22-29); Chloride 109 mmol/L (96-108); Creatinine Clr Calc Pharmacy 39.6; Estimated Glomerular Filt Rate > 60; Glucose Random 98 mg/dL (60-115); Lipase 38 U/L (8-78); Magnesium 2.1 mg/dL (1.6-2.6); Sodium 143 mmol/L (135-145); Total Protein 6.9 g/dL (6.5-8.0)
[2024-05-24] MEDS: Morphine Sulfate 4 MG/ML CARTRIDGE IVPUSH (09:06)
[2024-05-24] MEDS: Lidocaine 4 % Patch ADH..PATCH 1 PATCH TRANSDERMA (09:06)
[2024-05-24] MEDS: iohexoL 350 MG/ML 100 ML INFUS..BTL IV (09:55)
[2024-05-24 12:19] VITALS: BP 146/73; PULSE 60; RESP 20; TEMP 36.4; O2SAT 94
[2024-05-24 12:34] VITALS: BP 146/73; PULSE 60; RESP 20; TEMP 36.4; O2SAT 94
== END 2024-05-24 12:34 | disposition home or self-care (01) ==
PROVIDERS: Physician Assistant; Emergency Provider Emergency Medicine
DX: R10.30 Lower abdominal pain, unspecified (principal); M54.9 Dorsalgia, unspecified; M54.30 Sciatica, unspecified side; E11.9 Type 2 diabetes mellitus without complications; I10 Essential (primary) hypertension; Z79.899 Other long term (current) drug therapy
CPT/HCPCS: 36415; 74177; 80053; 81001; 83690; 83735; 85025; 87086; 96374; 99284; J2270; Q9967

== ENCOUNTER 2024-06-21 16:47 | Emergency (ER) | payer OTHER, SELFPAY ==
[2024-06-21] VITALS (7 sets, daily range): BP systolic 157–190; BP diastolic 80–98; PULSE 62–72; RESP 11–18; TEMP 36.6–36.8; O2SAT 95–98; BMI 23.0
--- NOTE | ~2024-06-21 | CT_ITS ---
EXAMINATION: CT HEAD WITHOUT CONTRAST CLINICAL INFORMATION: Headache with hypertension. COMPARISON: CT head from 08/06/2022. TECHNIQUE: Contiguous axial imaging was performed from the skull base to vertex without intravenous administration of contrast. This CT examination was performed using dose optimization techniques as appropriate, variously including the following: *Automated exposure control. *Adjustment of mA and/or kV according to patient size (this includes techniques or standardized protocols for targeted exams where dose is matched to indication/reason for exam; i.e. extremities or head). *Use of iterative reconstruction technique. DLP: 468 mGy-cm FINDINGS: There is no evidence of acute intracranial hemorrhage or edematous territorial infarction. [place]-white matter differentiation is preserved. Scattered and partially confluent hypoattenuation in the periventricular and deep white matter are consistent with moderate microangiopathy. Proportional prominence of the ventricles and sulcal spaces without evidence of obstructive hydrocephalus. No abnormal mass effect or midline shift. No extra-axial fluid collections. Calcific atherosclerotic disease of the intracranial internal carotid and vertebral arteries. No hyperdense vessel sign. No acute soft tissue or osseous abnormalities. Mild mucosal thickening of the paranasal sinuses. The mastoid air cells and middle ear cavities are clear. Moderate degenerative arthropathy of the right temporomandibular joint. CT/CT head/brain wo IV con IMPRESSION: 1. No evidence of acute intracranial hemorrhage or edematous territorial infarction. 2. Moderate underlying microangiopathy and generalized cerebral volume loss. Electronically signed by: Livan Sanchez DO 06/21/2024 08:38 PM EDT
[2024-06-21] MEDS: Butalb/Acetamin/Caff 50/325/40 TABLET 1 TAB PO (17:43)
[2024-06-21 17:54] LABS: MANUAL DIFF FLAG NO
[2024-06-21 18:05] LABS: Basophils Percent Auto 0.7 % (0-2); Eosinophils Absolute Auto 0.2 X10*3/uL (0.0-0.4); Eosinophils Percent Auto 4.8 % (0-4); Hemoglobin 12.7 g/dl (12.0-16.0); Imm Gran Abs Auto 0.01 X10*3/uL (0.00-0.03); Imm Gran Pct Auto 0.2 % (0.0-0.4); Lymphocytes Absolute Auto 1.7 X10*3/uL (1.2-4.9); Lymphocytes Percent Auto 39.3 % (20-40); Mean Corpuscular HGB Conc 32.6 g/dl (31.0-35.0); Mean Corpuscular Hemoglobin 29.5 pg (27.0-33.0); Mean Corpuscular Volume 90.5 fL (80.0-98.0); Mean Platelet Volume 10.7 fL (9.4-12.3); Monocytes Absolute Auto 0.5 X10*3/uL (0.1-1.2); Monocytes Percent Auto 11.8 % (2-11); Neutrophils Absolute Auto 1.9 x10*3/uL (2.0-8.3); Neutrophils Percent Auto 43.2 % (45-73); Platelet Count 175 X10*3/uL (160-400); Red Blood Count 4.31 X10*6/uL (4.20-5.50); Red Cell Distribution Width 12.7 % (11.0-16.0); White Blood Count 4.3 X10*3/uL (4.8-10.8)
[2024-06-21 18:11] LABS: Alanine Aminotransferase 20 U/L (0-31); Albumin Level 3.9 g/dL (3.5-5.0); Alkaline Phosphatase 147 U/L (39-117); Anion Gap 12 (12-20); Aspartate Amino Transferase 26 U/L (5-31); Bilirubin Total 0.4 mg/dL (0.0-1.0); Blood Urea Nitrogen 21 mg/dL (9-16); Calcium 9.2 mg/dL (8.4-10.2); Carbon Dioxide 24 mmol/L (22-29); Chloride 110 mmol/L (96-108); Creatinine Clr Calc Pharmacy 37.2; Estimated Glomerular Filt Rate > 60; Glucose Random 99 mg/dL (60-115); Sodium 142 mmol/L (135-145); Total Protein 6.9 g/dL (6.5-8.0)
--- NOTE | 2024-06-21 18:52 | PC.NURSE ---
Report given to Cindy Martin RN
--- NOTE | 2024-06-21 18:55 | ED.HA ---
HPI - Headache General Chief Complaint: Headache Stated Complaint: 06/29 headache, hx of htn Time Seen by Provider: 06/21/24 16:58 Source: patient Mode of arrival: ambulatory Limitations: no limitations History of Present Illness ED Provider: benjamin MILLER Narrative: Patient's history of hypertension, PE on Eliquis comes here for headache for last 3 days no nausea no vomiting headache is diffuse from frontal to the back of the head no nausea no vomiting no light sensitivity patient does not get headaches very often Related Data Home Medications ?Medication ?Instructions ?Recorded ?Confirmed benazepril 10 mg tablet 1 tab PO QAM 11/20/20 08/27/22 montelukast 10 mg tablet 1 tab PO BEDTIME 11/20/20 08/27/22 sertraline 100 mg tablet 200 mg PO DAILY 11/20/20 08/27/22 calcium carbonate 600 mg-vitamin 1 tab PO BID 08/27/22 08/27/22 D3 5 mcg (200 unit) tablet fluticasone 500 mcg-salmeterol 50 1 puff inhalation BID 08/27/22 08/27/22 mcg/dose blistr powdr for inhalation fluticasone propionate 50 1 spray intranasal DAILY PRN 08/27/22 08/27/22 mcg/actuation nasal Allergy Symptoms spray,suspension isosorbide mononitrate 60 mg 1 tab PO DAILY 08/27/22 08/27/22 tablet,extended release 24 hr multivitamin-ferrous 1 tab PO DAILY 08/27/22 08/27/22 fumarate-folic acid 18 mg-400 mcg tablet (Certavite-Antioxidant) omeprazole 20 mg capsule,delayed 1 cap PO DAILY 08/27/22 08/27/22 release trazodone 100 mg tablet 100 mg PO BEDTIME PRN Insomnia 08/27/22 08/27/22 trazodone 100 mg tablet 200 mg PO BEDTIME 08/27/22 08/27/22 umeclidinium 62.5 mcg/actuation 1 puff inhalation DAILY 08/27/22 08/27/22 blister powder for inhalation (Incruse Ellipta) Previous Rx's ?Medication ?Instructions ?Recorded atorvastatin 80 mg tablet 80 mg PO BEDTIME #30 tabs 05/12/21 acetaminophen 500 mg tablet 500 mg PO Q6H PRN fever or pain 04/22/22 (Tylenol Extra Strength) #14 tabs cyclobenzaprine 5 mg tablet 5 mg PO Q8H PRN pain (scale score 04/22/22 7-10) 5 days #14 tabs metoclopramide HCl 5 mg tablet 5 mg PO Q6H PRN nausea and 08/06/22 (Reglan) vomiting #10 tabs aspirin 81 mg chewable tablet 81 mg PO DAILY #1 tab 08/28/22 heparin (porcine) 25,000 unit/250 25,000 unit (250 mL) continuous IV 08/28/22 mL in 0.45 % sodium chloride IV infusion .Q0M #6,000 mL soln heparin (porcine) 5,000 unit/mL 2,100 unit (0.42 mL) IVPUSH 08/28/22 injection solution PROTOCOL BOLUS PRN 40 Unit/Kg - Heparin Protocol #1 mL heparin (porcine) 5,000 unit/mL 4,100 unit (0.82 mL) IVPUSH 08/28/22 injection solution PROTOCOL BOLUS PRN 80 Unit/Kg - Heparin Protocol #1 mL metoprolol tartrate 25 mg tablet 12.5 mg (1/2 x 25 mg) PO Q6H #1 tab 08/28/22 morphine 4 mg/mL intravenous 2 mg IVPUSH Q4H PRN Pain, Severe 08/28/22 syringe (Pain Scale 7-10) #10 mL ondansetron HCl (PF) 4 mg/2 mL 4 mg (2 mL) IVPUSH Q8H PRN Nausea 08/28/22 injection solution And Vomiting #10 mL ondansetron 4 mg disintegrating 4 mg PO Q8H PRN nausea and 11/27/22 tablet vomiting #10 tabs acetaminophen 500 mg tablet 500 mg PO Q6H PRN fever or pain 12/30/22 (Tylenol Extra Strength) #14 tabs cyclobenzaprine 5 mg tablet 5 mg PO Q8H PRN pain (scale score 12/30/22 7-10) 5 days #14 tabs lidocaine 5 % topical patch 1 patch topical DAILY PRN pain #30 12/30/22 (Lidoderm) ea naproxen 500 mg tablet 500 mg PO BID PRN pain 7 days #20 12/30/22 tabs benzonatate 100 mg capsule 100 mg PO TID PRN cough 5 days #15 02/10/23 caps doxycycline hyclate 100 mg tablet 100 mg PO Q12H 7 days #14 tabs 02/10/23 acetaminophen 500 mg tablet 500 mg PO Q6H PRN fever or pain 03/22/23 (Tylenol Extra Strength) #14 tabs cyclobenzaprine 5 mg tablet 5 mg PO Q8H PRN pain (scale score 03/22/23 7-10) 5 days #14 tabs lidocaine 5 % topical patch 1 patch topical DAILY PRN pain #30 03/22/23 (Lidoderm) ea cefuroxime axetil 250 mg tablet 250 mg PO BID 7 days #14 tabs 03/24/23 tramadol 50 mg tablet 50 mg PO BID PRN pain #6 tabs 05/12/23 acetaminophen 325 mg capsule 325 mg PO Q4H PRN pain #30 caps 05/24/24 (Tylenol) lidocaine 5 % topical patch 1 patch topical DAILY PRN pain #15 05/24/24 ea Allergies Allergy/AdvReac Type Severity Reaction Status Date / Time No Known Allergies Allergy Verified 06/21/24 17:15 Review of Systems Review of Systems: Yes all other systems are reviewed and are negative [facility] Past Medical History Medical History Multinodular goiter (nontoxic) Pulmonary embolism Asthma Pancreatitis Diabetes Hypertension High cholesterol GERD (gastroesophageal reflux disease) Aortic insufficiency Depression NSTEMI (non-ST elevated myocardial infarction) Surgical History No history of previous surgery Family History Family History Father Hypertension Heart disease Mother Hypertension Heart disease Social History Social History Household Members: Family and Other Household Members Other:: daughter is rv repair technician Housing: Apartment Do you presently have visiting nurse or other home services: No Alcohol intake: never Patient Tobacco Use Status: Never used Tobacco Smoked in Last 30 Days: No Second Hand Smoke Exposure: No Use of substances other than those prescribed or required for medical reasons: No Advance Directives: No Advance Directives Information Provided: No Do you have a plan to hurt others: No Plan service: No Current occupational status: unemployed and disabled Physical Exam Vital Signs: Vital Signs: Last Vital Signs Temp 97.8 F 06/21/24 20:06 Pulse 65 06/21/24 20:06 Resp 18 06/21/24 20:06 BP 160/87 H 06/21/24 20:06 Pulse Ox 98 06/21/24 20:06 O2 Del Method Room Air 06/21/24 20:06 BMI result Body Mass Index 23.0 Appearance: Alert. Oriented X3. No acute distress. Eyes: No pallor or icterus ENT: Pharynx normal. Oral Mucosa moist Neck: Normal inspection. Neck supple. CVS: Normal heart rate and rhythm. Pulses normal. Respiratory: No respiratory distress. Equal air entry bilateral, no wheezing/rales/rhonchi Abdomen: Soft and nontender. Bowel sounds are present, no mass palpable, Skin: Skin warm and dry. Normal skin color. Normal skin turgor. Extremities: No lower extremity edema. No calf tenderness Neuro: Oriented X 3. No motor deficit. No sensory deficit.No cerebellar signs , cranial nerves II-XII intact Medications Administered Discontinued Medications Generic Name Dose Route Start Last Admin Trade Name Freq PRN Reason Stop Dose Admin Acetaminophen/Butalbital/Caffeine 1 tab 06/21/24 17:33 06/21/24 17:43 Butalb/Acetamin/Caff 50/325/40 Tablet PO 06/21/24 17:34 1 tab ONCE ONE Administration Lisinopril 5 mg 06/21/24 19:00 06/21/24 19:12 Lisinopril 5 Mg Tablet PO 06/21/24 19:01 5 mg ONCE ONE Administration Protocol Tramadol HCl 50 mg 06/21/24 19:00 06/21/24 19:12 Tramadol Hcl 50 Mg Tablet PO 06/21/24 19:01 50 mg ONCE ONE Administration Medical Decision Making Medical Decision Making [facility] Narrative: Patient is on Eliquis for PE with history of hypotension comes here for 3 days of headache noted to have slightly elevated blood pressure CT scan of the head negative for acute labs are stable give a dose of lisinopril 5 mg and Fioricet also tramadol 50 mg Differential Diagnosis Differential Diagnoses: The differential diagnosis associated with the presentation includes Subarachnoid bleed/migraine headache/tension headaches hypotension Lab Data [facility] Lab Attestation statement: I reviewed the patient's lab results. 06/21/24 17:50 06/21/24 17:50 Labs: Lab Results 06/21/24 Range/Units 17:50 WBC 4.3 L (4.8-10.8) X10*3/uL RBC 4.31 (4.20-5.50) X10*6/uL Hgb 12.7 (12.0-16.0) g/dl Hct 39.0 (37.0-47.0) % MCV 90.5 (80.0-98.0) fL MCH 29.5 (27.0-33.0) pg MCHC 32.6 (31.0-35.0) g/dl RDW 12.7 (11.0-16.0) % Plt Count 175 (160-400) X10*3/uL MPV 10.7 (9.4-12.3) fL Immature Gran % (Auto) 0.2 (0.0-0.4) % Neut % (Auto) 43.2 L (45-73) % Lymph % (Auto) 39.3 (20-40) % [place] % (Auto) 11.8 H (2-11) % Eos % (Auto) 4.8 H (0-4) % Baso % (Auto) 0.7 (0-2) % Lymph # (Auto) 1.7 (1.2-4.9) X10*3/uL [place] # (Auto) 0.5 (0.1-1.2) X10*3/uL Eos # (Auto) 0.2 (0.0-0.4) X10*3/uL Baso # (Auto) 0.0 (0.0-0.2) X10*3/uL Abs Immat Gran (auto) 0.01 (0.00-0.03) X10*3/uL Absolute Neuts (auto) 1.9 L (2.0-8.3) x10*3/uL Absolute Nucleated RBC 0.000 (0.0-0.012) X10*3/uL Nucleated RBC % (auto) 0.0 (0.0-0.2) /100WBC Sodium 142 (135-145) mmol/L Potassium 4.0 (3.3-5.1) mmol/L Chloride 110 H (96-108) mmol/L Carbon Dioxide 24 (22-29) mmol/L Anion Gap 12 (12-20) BUN 21 H (9-16) mg/dL Creatinine 0.86 (0.5-1.4) mg/dL Estim Creat Clear Calc 37.2 Estimated GFR > 60 Random Glucose 99 (60-115) mg/dL Calcium 9.2 (8.4-10.2) mg/dL Total Bilirubin 0.4 (0.0-1.0) mg/dL AST 26 (5-31) U/L ALT 20 (0-31) U/L Alkaline Phosphatase 147 H (39-117) U/L Total Protein 6.9 (6.5-8.0) g/dL Albumin 3.9 (3.5-5.0) g/dL Independent Interpretation I performed an independent interpretation of an: CT Scan Radiology Impression Discussion of test interpretation with radiology: I have reviewed the radiologist's reading. Discharge Plan Discharge Clinical Impression: Headache, Essential hypertension Patient Disposition: Home, Self-Care Instructions: Hypertension (ED), General Headache (ED) Additional Instructions: Continue to take your blood pressure medication benazepril 10 mg if blood pressure still elevated higher than 160/100 may increase the dose to 20 mg daily Follow up with your PCP Prescriptions: No Action sertraline 100 mg tablet 200 mg PO DAILY montelukast 10 mg tablet 1 tab PO BEDTIME benazepril 10 mg tablet 1 tab PO QAM atorvastatin 80 mg Tablet 80 mg PO BEDTIME Qty: 30 0RF acetaminophen [Tylenol Extra Strength] 500 mg tablet 500 mg PO Q6H PRN (Reason: fever or pain) Qty: 14 0RF cyclobenzaprine 5 mg tablet 5 mg PO Q8H PRN (Reason: pain (scale score 7-10)) 5 Days Qty: 14 0RF metoclopramide HCl [Reglan] 5 mg tablet 5 mg PO Q6H PRN (Reason: nausea and vomiting) Qty: 10 0RF ondansetron 4 mg tablet,disintegrating 4 mg PO Q8H PRN (Reason: nausea and vomiting) Qty: 10 0RF calcium carbonate-vitamin D3 600 mg-5 mcg (200 unit) tablet 1 tab PO BID fluticasone propion-salmeterol 500-50 mcg/dose blister with device 1 puff inhalation BID Certavite-Antioxidant 18-400 mg-mcg tablet 1 tab PO DAILY Incruse Ellipta 62.5 mcg/actuation blister with device 1 puff inhalation DAILY isosorbide mononitrate 60 mg tablet extended release 24 hr 1 tab PO DAILY trazodone 100 mg tablet 200 mg PO BEDTIME omeprazole 20 mg capsule,delayed release(DR/EC) 1 cap PO DAILY trazodone 100 mg tablet 100 mg PO BEDTIME PRN (Reason: Insomnia) Rx Instructions: If addition to 200 mg if cannot sleep fluticasone propionate 50 mcg/actuation [place],Suspension 1 spray INTRANASAL DAILY PRN (Reason: Allergy Symptoms) Rx Instructions: administer into each nostril heparin(porcine) in 0.45% NaCl 25,000 unit/250 mL Parenteral Solution 25,000 unit continuous IV infusion .Q0M Qty: 6000 0RF aspirin 81 mg Tablet,Chewable 81 mg PO DAILY Qty: 1 0RF heparin (porcine) 5,000 unit/mL Solution 2,100 unit IVPUSH PROTOCOL BOLUS PRN (Reason: 40 Unit/Kg - Heparin Protocol) Qty: 1 0RF heparin (porcine) 5,000 unit/mL Solution 4,100 unit IVPUSH PROTOCOL BOLUS PRN (Reason: 80 Unit/Kg - Heparin Protocol) Qty: 1 0RF morphine 4 mg/mL Syringe 2 mg IVPUSH Q4H PRN (Reason: Pain, Severe (Pain Scale 7-10)) Qty: 10 0RF Protocol: Hold for RR < HOLD and contact provider for RR < (bpm): 12 Rx Instructions: Partial Fill upon patient request. ondansetron HCl (PF) 4 mg/2 mL Solution 4 mg IVPUSH Q8H PRN (Reason: Nausea And Vomiting) Qty: 10 0RF metoprolol tartrate 25 mg tablet 12.5 mg PO Q6H Qty: 1 0RF acetaminophen [Tylenol Extra Strength] 500 mg tablet 500 mg PO Q6H PRN (Reason: fever or pain) Qty: 14 0RF lidocaine [Lidoderm] 5 % adhesive patch,medicated 1 patch topical DAILY MDD remove after 12 hours PRN (Reason: pain) Qty: 30 0RF Rx Instructions: leave on most painful area for up to 12 hrs cyclobenzaprine 5 mg tablet 5 mg PO Q8H PRN (Reason: pain (scale score 7-10)) 5 Days Qty: 14 0RF cefuroxime axetil 250 mg tablet 250 mg PO BID 7 Days Qty: 14 0RF lidocaine 5 % adhesive patch,medicated 1 patch topical DAILY PRN (Reason: pain) Qty: 15 0RF Rx Instructions: leave on most painful area for up to 12 hrs acetaminophen [Tylenol] 325 mg capsule 325 mg PO Q4H PRN (Reason: pain) Qty: 30 0RF acetaminophen [Tylenol Extra Strength] 500 mg tablet 500 mg PO Q6H PRN (Reason: fever or pain) Qty: 14 0RF lidocaine [Lidoderm] 5 % adhesive patch,medicated 1 patch topical DAILY MDD remove after 12 hours PRN (Reason: pain) Qty: 30 0RF Rx Instructions: leave on most painful area for up to 12 hrs naproxen 500 mg tablet 500 mg PO BID PRN (Reason: pain) 7 Days Qty: 20 0RF cyclobenzaprine 5 mg tablet 5 mg PO Q8H PRN (Reason: pain (scale score 7-10)) 5 Days Qty: 14 0RF doxycycline hyclate 100 mg tablet 100 mg PO Q12H 7 Days Qty: 14 0RF benzonatate 100 mg capsule 100 mg PO TID PRN (Reason: cough) 5 Days Qty: 15 0RF tramadol 50 mg tablet 50 mg PO BID PRN (Reason: pain) Qty: 6 0RF Interventions: ED Discharge Assessment Last Done: 06/21/24 20:06 Discharge Date/Time: 06/21/24 20:07 Print Language: Romanian
[2024-06-21] MEDS: lisinopriL 5 MG TABLET PO (19:12)
[2024-06-21] MEDS: traMADoL HCL 50 MG TABLET PO (19:12)
== END 2024-06-21 20:07 | disposition home or self-care (01) ==
PROVIDERS: Emergency Provider Internal Medicine; PCP Family Medicine
DX: R51.9 Headache, unspecified (principal); I10 Essential (primary) hypertension; E11.9 Type 2 diabetes mellitus without complications; E78.5 Hyperlipidemia, unspecified; J45.909 Unspecified asthma, uncomplicated; Z86.711 Personal history of pulmonary embolism; Z79.01 Long term (current) use of anticoagulants; Z79.02 Long term (current) use of antithrombotics/antiplatelets; Z79.899 Other long term (current) drug therapy; Z79.82 Long term (current) use of aspirin
CPT/HCPCS: 36415; 70450; 80053; 85025; 99284; 99285; Q9967

== ENCOUNTER 2024-08-10 12:01 | Outpatient (REF) | payer OTHER, SELFPAY | END 2024-08-10 12:02 | disposition home or self-care (01) | LOC: HO.US 12:01 | PROVIDERS: PCP Family Medicine; Visit Provider Family Medicine | DX: E04.1 Nontoxic single thyroid nodule (principal) | CPT/HCPCS: 76536 ==

== ENCOUNTER 2024-09-01 18:18 | Emergency (ER) | payer OTHER, SELFPAY ==
--- NOTE | ~2024-09-01 | XR_ITS ---
EXAMINATION: XR CHEST CLINICAL INFORMATION: cough/sob COMPARISON: Chest radiograph 02/10/2023 CT abdomen 05/24/2024 TECHNIQUE: 2 views of the chest were obtained. FINDINGS: There is some left basilar atelectasis/scarring similar to 02/10/2023. No new focal consolidation is seen. No significant abnormality is noted involving the heart, lungs, mediastinum, bony thorax or soft tissues. Surgical clips are present in the gallbladder fossa. XR/XR chest 2V IMPRESSION: No acute intrathoracic disease. Left basilar atelectasis/scarring. Electronically signed by: Iain Reyes MD 09/01/2024 08:56 PM [facility]
--- NOTE | 2024-09-01 18:31 | ECG_ITS ---
Test Reason : CP/SOB Blood Pressure : / mmHG Vent. Rate : 070 BPM Atrial Rate : 070 BPM P-R Int : 124 ms QRS Dur : 068 ms QT Int : 376 ms P-R-T Axes : 027 -10 017 degrees QTc Int : 406 ms Normal sinus rhythm Inferior infarct , age undetermined Abnormal ECG When compared with ECG of 27-NOV-2022 09:46, Criteria for Septal infarct are no longer Present Inferior infarct is now Present Referred By: Kesha Frias Electronically Signed By:KORINA JAMES MD
[2024-09-01 18:32] VITALS: BP 161/78; BP 186/72; PULSE 79; PULSE 80; RESP 18; TEMP 36.9; O2SAT 100; O2SAT 97; BMI 22.8
--- OUTSIDE RECORDS SUMMARY | 2024-09-01 19:17 | XMS_ITS | Data Portability ---
Author Organization [facility] Address [address] [place] [id number] Care Team Providers Care Crew Caller Name Role Phone HIM [facility] OTHER Assessment No assessment recorded. Plan of Treatment Reminders Order Date Submit Date Provider Last Modified By Organization Details Last Modified Time Details Appointments None record ed. Lab None record ed. Referral None record ed. Procedures None record ed. Surgeries None record ed. Imaging None record ed. Medication Orders None record ed. Patient TargetsNo targets recorded. Patient InstructionsNo instructions recorded. Reason for Referral None Reported. Medical Equipment None Reported. Allergies No known drug allergies Medications Name Sig Start Date Stop Date Status Note LastModified by Organization Details LastModified Time atorvastatin 80 mg tablet active Not Available Not Available No t Available acetaminophen 325 mg tablet active Not Available Not Availabl e Not Available donepezil 5 mg tablet active Not Available Not Available Not Available sertraline 100 mg tablet active Not Available Not Available No t Available calcium 600 mg (as carbonate)-jomar min D3 5 mcg (200 unit) tablet active Not Available Not Available Not Available aspirin 81 mg tablet,delayed release active Not Available Not Available Not Available isosorbide mononitrate ER 60 mg tablet,extended release 24 hr active Not Available Not Availabl e Not Available trazodone 100 mg tablet active Not Available Not Available No t Available sertraline 25 mg tablet active Not Available Not Available No t Available omeprazole 20 mg capsule,delayed release active Not Available Not Available Not Available montelukast 10 mg tablet active Not Available Not Available No t Available metoprolol succinate ER 25 mg tablet,extended release 24 hr active Not Available Not Availabl e Not Available loratadine 10 mg tablet active Not Available Not Available No t Available Certavite-Antio xidant 18 mg-400 mcg tablet active Not Available Not Available Not Available Eliquis 5 mg tablet active Not Available Not Available Not Available Incruse Ellipta 62.5 mcg/actuation powder for inhalation active Not Available Not Available N ot Available Vitals Date Recorded Heart rate Oxygen saturation Oxygen saturation in Arterial blood by Pulse oximetry Respiratory rate Body temperature Systolic blood pressure Diastolic blood pressure Provider Name and Address Organization Details Last Updated DateTime 4 79 /min 96 % 96 % 10 /min 98.8 [degF] 134 mm[Hg] 68 mm[Hg] Not Available [facility] - production 4 12:08:31 Social History None recorded. Functional Status None recorded. Mental Status None recorded. Family History Nothing Reported. Medical History No medical history recorded. Gynecological HistoryNo gynecological history recorded. Obstetrics History GPAL:G 0 P 0 0 0 0 Past Encounters Encounter ID Performer Location Encounter Start Date Encounter Closed Date Diagnosis/Indication Diagnosis SNOMED-CT Code Diagnosis ICD10 Code [id number] Katherine Chadwick MD [facility] [address] [place] [phone] 08/24/2024 12:08:28 08/24/2024 12:43:33 Cough 66866189 R05.9 Health Concerns Section Related Observation LastModified by Organization Detai ls LastModified Time None Recorded Concern Status LastModified by Organization Details LastModified Time None Recorded Advance Directives Directive None Recorded Payers Encounter Date Sequence Insurance Name Policy Number Policy Mario Covered Member ID Mario Member ID Guarantor Name 08/24/2024 1 [facility] - DOS ON OR AFTER 2022 - DUAL ELIGIBLE - RESIDENTIAL OPTIONS AND ONE CARE (MEDICARE REPLACEMENT/AD VANTAGE - HMO) Edilma Méndez [id number] Edilma Méndez Notes Date Note Type Note Provider Name and Address Organization Details Recorded Time 08/24/2024 text/html [facility] Nurse Triage Notes (Darius Khan): Reason For Request: Patient is short of breath, and has a history of breathing problems, wants checked out. Chief Complaints: Breathing problems PMH: Hypertension, Gastroesophageal Reflux Disease (GERD), Anxiety Disorder, COPD/Asthma Comments: Heating Technician verified the Pt.'s name//address and phone number. Education provided on the response time and the Pt. was advised to monitor reported s/s and seek emergency treatment if needed. CG reports the pt is feeling unwell with SOB - HX of COPD/Asthma - Cough/cold and congestion - CG reports the pt is able to speak full sentences at this time -Dry cough - Non productive - Denies fever and sore throat - S/S started last week - CG reports the pt is taking Tylenol with no relief. Wellness visit requested. ...................... ...................... ...................... ...................... ...................... ...................... ......... Social Media Developer Note From Sai Barajas: Dispatched to above address for cough, breathing problems. On arrival patient 79 y/o F, found sitting on cough, AOX4, airway patent, speaking in full sentences, good color, in no apparent distress. Patient Latvian speaking only, family on scene to translate. Patient reports a cough x1 week no productive. Family reports they believe patient may have a cold as she has been less active over the last few days but no other concerns. Patients vital signs checked. Secondary assessment, pupils PERRL, airway patent, no JVD, trachea midline, equal chest rise and fall, lung sounds tight faint expiratory wheezing, abdomen soft non tender, no signs of trauma, good radial pulse, skin pink warm and dry. [facility] contacted, spoke with Dr. Chadwick, advised of patient complaints and exam findings. [facility] believes it is likely viral URI, recommends home care, rest and follow up with PCP should symptoms worsen or continue over the next week. Patient and family advised of [facility] recommendations, home care and red flags. Patient and family understand and agree with this plan. Patient and family have no additional questions or concerns at this time. SC8 clear. EOR. ...................... ...................... ...................... ...................... ...................... ...................... ......... [facility] Consulted: Katherine Chadwick ...................... ...................... ...................... ...................... ...................... ...................... ......... Disposition: Fulfilled Katherine Chadwick MD [address] [facility],[address], [place], [phone], RAUL WARD 08/24/2024 12:13:00 OBGyn Episode No OBEpisode recorded.
--- OUTSIDE RECORDS SUMMARY | 2024-09-01 19:17 | XMS_ITS | Continuity of Care Document ---
Author Organization [employer] in [employer] Address [address] [place] [address] Care Team Providers Care Primary Care Md Name Role Phone HIM CCA OTHER Assessment [...] Diagnosis/Indication Diagnosis SNOMED-CT Code Diagnosis ICD10 Code [id number] Katherine Chadwick MD Main - [facility] [address] [place] [phone] 08/24/2024 12:08:28 08/24/2024 12:43:33 Cough [id number] R05.9 Health Concerns Section Related Observation LastModified by Organization Detai ls LastModified Time None Recorded Concern Status LastModified by Organization Details LastModified Time None Recorded Payers Encounter Date Sequence Insurance Name Policy Number Policy Mario Covered Member ID Mario Member ID Guarantor Name 08/24/2024 1 [facility] - DOS ON OR AFTER 2022 - DUAL ELIGIBLE - [employer]IT[employer] OPTIONS AND ONE CARE (MEDICARE REPLACEMENT/AD VANTAGE - HMO) Edilma Méndez [id number] Edilma Méndez Notes Date Note Type Note Provider Name and Address Organization Details Recorded Time 08/24/2024 text/html CRC Nurse Triage Notes (Darius Khan): Reason For Request: Patient is short of breath, and has a history of breathing problems, wants checked out. Chief Complaints: Breathing problems PMH: Hypertension, Gastroesophageal Reflux Disease (GERD), Anxiety Disorder, COPD/Asthma Comments: Veterinarian Helper verified the Pt.'s name//address and phone number. [...] ...................... ...................... ...................... ...................... ...................... ...................... ......... Admissions Supervisor Note From Sai Barajas: Dispatched to above address for cough, breathing problems. On arrival patient 79 y/o F, found sitting on cough, AOX4, airway patent, speaking in full sentences, good color, in no apparent distress. Patient Frisian speaking only, family on scene to translate. [...] radial pulse, skin pink warm and dry. [facility] contacted, spoke with Dr. Chadwick, advised of patient complaints and exam findings. [facility] believes it is likely viral URI, recommends home care, rest and follow up with PCP should symptoms worsen or continue over the next week. Patient and family advised of [facility] recommendations, home care and red flags. Patient and family understand and agree with this plan. Patient and family have no additional questions or concerns at this time. SC8 clear. EOR. ...................... ...................... ...................... ...................... ...................... ...................... ......... [facility] Consulted: Katherine Chadwick ...................... ...................... ...................... ...................... ...................... ...................... ......... Disposition: Fulfilled Katherine Chadwick MD [address] [facility],[address], [place], [phone], RAUL WARD 08/24/2024 12:13:00 OBGyn Episode No OBEpisode recorded.
[2024-09-01 19:39] VITALS: BP 140/75; PULSE 70; RESP 16; TEMP 36.7; O2SAT 95
--- NOTE | 2024-09-01 19:50 | MHC.EDTECH ---
This pct assumed care of Patient at 1900 ,vitals taken ,blood drawn ,rsv/covid swab collected and sent to lab Patient awake and in bed ,No apparent distress noted ,Plan of care continue .
[2024-09-01 19:53] LABS: MANUAL DIFF FLAG NO
[2024-09-01 19:54] LABS: Basophils Percent Auto 0.7 % (0-2); Eosinophils Absolute Auto 0.2 X10*3/uL (0.0-0.4); Eosinophils Percent Auto 4.5 % (0-4); Hematocrit 36.8 % (37.0-47.0); Hemoglobin 12.2 g/dl (12.0-16.0); Imm Gran Abs Auto 0.02 X10*3/uL (0.00-0.03); Imm Gran Pct Auto 0.4 % (0.0-0.4); Lymphocytes Absolute Auto 1.7 X10*3/uL (1.2-4.9); Lymphocytes Percent Auto 38.2 % (20-40); Mean Corpuscular HGB Conc 33.2 g/dl (31.0-35.0); Mean Corpuscular Hemoglobin 29.2 pg (27.0-33.0); Mean Platelet Volume 10.7 fL (9.4-12.3); Monocytes Absolute Auto 0.6 X10*3/uL (0.1-1.2); Monocytes Percent Auto 12.8 % (2-11); Neutrophils Absolute Auto 1.9 x10*3/uL (2.0-8.3); Neutrophils Percent Auto 43.4 % (45-73); Platelet Count 240 X10*3/uL (160-400); Red Blood Count 4.18 X10*6/uL (4.20-5.50); Red Cell Distribution Width 12.6 % (11.0-16.0); White Blood Count 4.5 X10*3/uL (4.8-10.8)
[2024-09-01 20:08] LABS: Anion Gap 12 (12-20); Blood Urea Nitrogen 20 mg/dL (9-16); Calcium 8.9 mg/dL (8.4-10.2); Carbon Dioxide 24 mmol/L (22-29); Chloride 109 mmol/L (96-108); Creatinine Clr Calc Pharmacy 38.9; Estimated Glomerular Filt Rate > 60; Glucose Random 130 mg/dL (60-115); Magnesium 2.1 mg/dL (1.6-2.6); Sodium 141 mmol/L (135-145)
[2024-09-01 20:15] LABS: Troponin-I High Sensitivity 4.3 ng/L (<3.5-17.0)
[2024-09-01 20:31] LABS: Influenza A PCR NEGATIVE (Negative); Influenza B PCR NEGATIVE (Negative); Resp Syncy Virus RNA Qual PCR NEGATIVE (Negative); SARS COV2 PCR INHOUSE NEGATIVE (Negative)
[2024-09-01 21:16] VITALS: BP 127/76; PULSE 68; RESP 20; TEMP 36.6; O2SAT 98
--- NOTE | 2024-09-01 21:24 | MHC.EDTECH ---
Patient 2nd trop drawn and sent to lab ,rounding done ,vitals taken ,Patient alert /oriented ,family at bedside .no apparent distress noted .Plan of care continue .
[2024-09-01 21:45] LABS: Troponin-I High Sensitivity 4.5 ng/L (<3.5-17.0)
[2024-09-01] MEDS: methocarbamoL 750 MG TABLET PO (22:13)
--- NOTE | 2024-09-01 23:05 | ED_ITS ---
HPI - General Adult General Chief complaint: Upper Respiratory Symptoms Stated complaint: cough,sob,cp on coughing/inspiration Time Seen by Provider: 09/01/24 18:26 Source: patient Limitations: no limitations and language barrier History of Present Illness ED Provider: Kesha Frias PA-C HPI narrative: 79-year-old female with a history of hypertension, hyperlipidemia prior NSTEMI, multinodular goiter, presents with cough and cold symptoms x4 days. Patient states breathing and triggers a dry cough. Associated shortness of breath. Patient states she has been having central chest discomfort when she coughs. The discomfort has been intermittent. Subjective fevers at home. Denies known sick contacts, no nausea vomiting or diarrhea. Related Data Home Medications ?Medication ?Instructions ?Recorded ?Confirmed benazepril 10 mg tablet 1 tab PO QAM 11/20/20 08/27/22 montelukast 10 mg tablet 1 tab PO BEDTIME 11/20/20 08/27/22 sertraline 100 mg tablet 200 mg PO DAILY 11/20/20 08/27/22 calcium 600 mg (as 1 tab PO BID 08/27/22 08/27/22 carbonate)-vitamin D3 5 mcg (200 unit) tablet fluticasone 500 mcg-salmeterol 50 1 puff inhalation BID 08/27/22 08/27/22 mcg/dose blistr powdr for inhalation fluticasone propionate 50 1 spray intranasal DAILY PRN 08/27/22 08/27/22 mcg/actuation nasal Allergy Symptoms spray,suspension isosorbide mononitrate 60 mg 1 tab PO DAILY 08/27/22 08/27/22 tablet,extended release 24 hr multivitamin-ferrous 1 tab PO DAILY 08/27/22 08/27/22 fumarate-folic acid 18 mg-400 mcg tablet (Certavite-Antioxidant) omeprazole 20 mg capsule,delayed 1 cap PO DAILY 08/27/22 08/27/22 release trazodone 100 mg tablet 100 mg PO BEDTIME PRN Insomnia 08/27/22 08/27/22 trazodone 100 mg tablet 200 mg PO BEDTIME 08/27/22 08/27/22 umeclidinium 62.5 mcg/actuation 1 puff inhalation DAILY 08/27/22 08/27/22 blister powder for inhalation (Incruse Ellipta) Previous Rx's ?Medication ?Instructions ?Recorded atorvastatin 80 mg tablet 80 mg PO BEDTIME #30 tabs 05/12/21 acetaminophen 500 mg tablet 500 mg PO Q6H PRN fever or pain 04/22/22 (Tylenol Extra Strength) #14 tabs cyclobenzaprine 5 mg tablet 5 mg PO Q8H PRN pain (scale score 04/22/22 7-10) 5 days #14 tabs metoclopramide HCl 5 mg tablet 5 mg PO Q6H PRN nausea and 08/06/22 (Reglan) vomiting #10 tabs aspirin 81 mg chewable tablet 81 mg PO DAILY #1 tab 08/28/22 heparin (porcine) 25,000 unit/250 25,000 unit (250 mL) continuous IV 08/28/22 mL in 0.45 % sodium chloride IV infusion .Q0M #6,000 mL soln heparin (porcine) 5,000 unit/mL 2,100 unit (0.42 mL) IVPUSH 08/28/22 injection solution PROTOCOL BOLUS PRN 40 Unit/Kg - Heparin Protocol #1 mL heparin (porcine) 5,000 unit/mL 4,100 unit (0.82 mL) IVPUSH 08/28/22 injection solution PROTOCOL BOLUS PRN 80 Unit/Kg - Heparin Protocol #1 mL metoprolol tartrate 25 mg tablet 12.5 mg (1/2 x 25 mg) PO Q6H #1 tab 08/28/22 morphine 4 mg/mL intravenous 2 mg IVPUSH Q4H PRN Pain, Severe 08/28/22 syringe (Pain Scale 7-10) #10 mL ondansetron HCl (PF) 4 mg/2 mL 4 mg (2 mL) IVPUSH Q8H PRN Nausea 08/28/22 injection solution And Vomiting #10 mL ondansetron 4 mg disintegrating 4 mg PO Q8H PRN nausea and 11/27/22 tablet vomiting #10 tabs acetaminophen 500 mg tablet 500 mg PO Q6H PRN fever or pain 12/30/22 (Tylenol Extra Strength) #14 tabs cyclobenzaprine 5 mg tablet 5 mg PO Q8H PRN pain (scale score 12/30/22 7-10) 5 days #14 tabs lidocaine 5 % topical patch 1 patch topical DAILY PRN pain #30 12/30/22 (Lidoderm) ea naproxen 500 mg tablet 500 mg PO BID PRN pain 7 days #20 12/30/22 tabs benzonatate 100 mg capsule 100 mg PO TID PRN cough 5 days #15 02/10/23 caps doxycycline hyclate 100 mg tablet 100 mg PO Q12H 7 days #14 tabs 02/10/23 acetaminophen 500 mg tablet 500 mg PO Q6H PRN fever or pain 03/22/23 (Tylenol Extra Strength) #14 tabs cyclobenzaprine 5 mg tablet 5 mg PO Q8H PRN pain (scale score 03/22/23 7-10) 5 days #14 tabs lidocaine 5 % topical patch 1 patch topical DAILY PRN pain #30 03/22/23 (Lidoderm) ea cefuroxime axetil 250 mg tablet 250 mg PO BID 7 days #14 tabs 03/24/23 tramadol 50 mg tablet 50 mg PO BID PRN pain #6 tabs 05/12/23 acetaminophen 325 mg capsule 325 mg PO Q4H PRN pain #30 caps 05/24/24 (Tylenol) lidocaine 5 % topical patch 1 patch topical DAILY PRN pain #15 05/24/24 ea methocarbamol 750 mg tablet 750 mg PO BEDTIME PRN pain #7 tabs 09/01/24 Allergies Allergy/AdvReac Type Severity Reaction Status Date / Time No Known Allergies Allergy Verified 09/01/24 18:35 Review of Systems 2 Review of Systems: Yes all other systems are reviewed and are negative Constitutional: Constitutional: Denies fatigue and Reports fever(s) Cardiovascular: Cardiovascular: Reports chest pain and Reports dyspnea Respiratory: Respiratory: Reports cough, Reports dyspnea and Denies wheezing Gastrointestinal: Gastrointestinal: Denies abdominal pain, Denies diarrhea, Denies nausea and Denies vomiting Endocrine: Endocrine: Denies fatigue Allergic/Immunologic: Allergic/Immunologic: Denies wheezing PMFSH Past Medical History Attestation statement: The following information was validated with the patient. Medical History Multinodular goiter (nontoxic) Pulmonary embolism Asthma Pancreatitis Diabetes Hypertension High cholesterol GERD (gastroesophageal reflux disease) Aortic insufficiency Depression NSTEMI (non-ST elevated myocardial infarction) Surgical History No history of previous surgery Family History Family History Father Hypertension Heart disease Mother Hypertension Heart disease Social History Social History Household Members: Family and Other Household Members Other:: daughter is healthcare business analyst Housing: Apartment Do you presently have visiting nurse or other home services: No Alcohol intake: never Patient Tobacco Use Status: Never used Tobacco Second Hand Smoke Exposure: No Advance Directives: No Advance Directives Information Provided: No service: No Current occupational status: unemployed and disabled Physical Exam ED Vital Signs: Vital Signs - 24 hr 09/01/24 18:32 09/01/24 19:39 09/01/24 21:16 Temperature 98.4 F 98.0 F 97.9 F Pulse Rate 79 70 68 Respiratory Rate 18 16 20 Blood Pressure 186/72 H 140/75 H 127/76 Pulse Oximetry 97 95 98 Oxygen Delivery Method Room Air Room Air Room Air 09/01/24 23:06 Temperature 98.2 F Pulse Rate 72 Respiratory Rate 17 Blood Pressure 148/83 H Pulse Oximetry 96 Oxygen Delivery Method Room Air BMI result Body Mass Index 22.8 Const Other: Alert, overall well-appearing Orientation/consciousness: patient oriented x3 Resp Other: Nonlabored respirations, lungs clear to auscultation Cardio Other: Normal peripheral perfusion no pedal edema Skin Other: Warm dry no rash Neuro General: patient oriented x3, no focal motor deficits and CN's II-XI intact bilaterally Psych Other: Calm cooperative Medications Administered Discontinued Medications Generic Name Dose Route Start Last Admin Trade Name Freq PRN Reason Stop Dose Admin Methocarbamol 750 mg 09/01/24 22:08 09/01/24 22:13 Methocarbamol 750 Mg Tablet PO 09/01/24 22:09 750 mg ONCE ONE Administration Medical Decision Making Medical Decision Making MDM Narrative: 79-year-old female with a history of hypertension, hyperlipidemia prior NSTEMI, multinodular goiter, presents with cough and cold symptoms x4 days. Patient states breathing and triggers a dry cough. Associated shortness of breath. Patient states she has been having central chest discomfort when she coughs. The discomfort has been intermittent. Subjective fevers at home. Denies known sick contacts, no nausea vomiting or diarrhea. Problem: Age, coronary artery disease History: Per patient I have considered the following differential diagnoses: Pneumonia, bronchitis, viral syndrome, ACS, new heart failure, costochondritis Plan: Patient's symptoms are consistent with likely viral syndrome, we will obtain a viral panel. Thought about pneumonia, however her fevers are subjective, the cough is not productive, chest x-ray we will be pending. In regard to the chest discomfort, given concurrent viral syndrome, this is likely costochondritis. However, the patient has known coronary artery disease, we will be screening basic labs, cardiac enzymes and an EKG. Also thought about new onset heart failure, however she is not volume overloaded on exam, she is not overtly hypertensive. I have independently reviewed the following tests: Labs: No leukocytosis, not anemic, no electrolyte abnormalities, troponin x2 are flat, viral panel negative EKG: Normal sinus rhythm, rate of 70, no ischemic changes no ectopy Chest x-ray: XR/XR chest 2V IMPRESSION: No acute intrathoracic disease. Left basilar atelectasis/scarring. Electronically signed by: Iain Reyes MD 09/01/2024 08:56 PM [facility] Lab Data 09/01/24 19:49 09/01/24 19:49 Labs: Lab Results 09/01/24 09/01/24 Range/Units 19:49 21:21 WBC 4.5 L (4.8-10.8) X10*3/uL RBC 4.18 L (4.20-5.50) X10*6/uL Hgb 12.2 (12.0-16.0) g/dl Hct 36.8 L (37.0-47.0) % MCV 88.0 (80.0-98.0) fL MCH 29.2 (27.0-33.0) pg MCHC 33.2 (31.0-35.0) g/dl RDW 12.6 (11.0-16.0) % Plt Count 240 D (160-400) X10*3/uL MPV 10.7 (9.4-12.3) fL Immature Gran % (Auto) 0.4 (0.0-0.4) % Neut % (Auto) 43.4 L (45-73) % Lymph % (Auto) 38.2 (20-40) % Rogers % (Auto) 12.8 H (2-11) % Eos % (Auto) 4.5 H (0-4) % Baso % (Auto) 0.7 (0-2) % Lymph # (Auto) 1.7 (1.2-4.9) X10*3/uL Rogers # (Auto) 0.6 (0.1-1.2) X10*3/uL Eos # (Auto) 0.2 (0.0-0.4) X10*3/uL Baso # (Auto) 0.0 (0.0-0.2) X10*3/uL Abs Immat Gran (auto) 0.02 (0.00-0.03) X10*3/uL Absolute Neuts (auto) 1.9 L (2.0-8.3) x10*3/uL Absolute Nucleated RBC 0.000 (0.0-0.012) X10*3/uL Nucleated RBC % (auto) 0.0 (0.0-0.2) /100WBC Sodium 141 (135-145) mmol/L Potassium 4.0 (3.3-5.1) mmol/L Chloride 109 H (96-108) mmol/L Carbon Dioxide 24 (22-29) mmol/L Anion Gap 12 (12-20) BUN 20 H (9-16) mg/dL Creatinine 0.84 (0.5-1.4) mg/dL Estim Creat Clear Calc 38.9 Estimated GFR > 60 Random Glucose 130 H (60-115) mg/dL Calcium 8.9 (8.4-10.2) mg/dL Magnesium 2.1 (1.6-2.6) mg/dL Troponin I High Sens 4.3 D 4.5 (<3.5-17.0) ng/L Influenza Type A (PCR) NEGATIVE (Negative) Influenza Type B (PCR) NEGATIVE (Negative) RSV RNA Qual (PCR) NEGATIVE (Negative) SARS-CoV-2 RNA (RT-PCR) NEGATIVE (Negative) Discharge Plan Discharge Clinical Impression: Acute viral syndrome, Costochondritis Patient Disposition: Home, Self-Care Instructions: Costochondritis (ED), Viral Syndrome (ED) Additional Instructions: All of your labs including 2 cardiac enzymes were normal. There were no concerning changes on your EKG in your chest x-ray was clear, you were also screened for flu RSV and COVID, the viral panel was negative. You have yet another virus assessment circulating within the community causing your symptoms. In regard to the chest discomfort, this is likely what is called costochondritis, which can be triggered by a virus. See home care instructions. You can use [id number] ibuprofen 600 mg taken every 6 hours with food, alternated with [id number] Tylenol 1000 mg taken every 8 hours for your discomfort. I am sending a prescription for a muscle relaxant to your pharmacy, it is called methocarbamol. Use it as needed, it may cause drowsiness, do not drive or operate machinery while taking the medication. Follow up with your primary care provider within the next few weeks. Prescriptions: New methocarbamol 750 mg tablet 750 mg PO BEDTIME PRN (Reason: pain) Qty: 7 0RF No Action sertraline 100 mg tablet 200 mg PO DAILY montelukast 10 mg tablet 1 tab PO BEDTIME benazepril 10 mg tablet 1 tab PO QAM atorvastatin 80 mg Tablet 80 mg PO BEDTIME Qty: 30 0RF acetaminophen [Tylenol Extra Strength] 500 mg tablet 500 mg PO Q6H PRN (Reason: fever or pain) Qty: 14 0RF cyclobenzaprine 5 mg tablet 5 mg PO Q8H PRN (Reason: pain (scale score 7-10)) 5 Days Qty: 14 0RF metoclopramide HCl [Reglan] 5 mg tablet 5 mg PO Q6H PRN (Reason: nausea and vomiting) Qty: 10 0RF ondansetron 4 mg tablet,disintegrating 4 mg PO Q8H PRN (Reason: nausea and vomiting) Qty: 10 0RF calcium carbonate-vitamin D3 600 mg-5 mcg (200 unit) tablet 1 tab PO BID fluticasone propion-salmeterol 500-50 mcg/dose blister with device 1 puff inhalation BID Certavite-Antioxidant 18-400 mg-mcg tablet 1 tab PO DAILY Incruse Ellipta 62.5 mcg/actuation blister with device 1 puff inhalation DAILY isosorbide mononitrate 60 mg tablet extended release 24 hr 1 tab PO DAILY trazodone 100 mg tablet 200 mg PO BEDTIME omeprazole 20 mg capsule,delayed release(DR/EC) 1 cap PO DAILY trazodone 100 mg tablet 100 mg PO BEDTIME PRN (Reason: Insomnia) Rx Instructions: If addition to 200 mg if cannot sleep fluticasone propionate 50 mcg/actuation [place],Suspension 1 spray INTRANASAL DAILY PRN (Reason: Allergy Symptoms) Rx Instructions: administer into each nostril heparin(porcine) in 0.45% NaCl 25,000 unit/250 mL Parenteral Solution 25,000 unit continuous IV infusion .Q0M Qty: 6000 0RF aspirin 81 mg Tablet,Chewable 81 mg PO DAILY Qty: 1 0RF heparin (porcine) 5,000 unit/mL Solution 2,100 unit IVPUSH PROTOCOL BOLUS PRN (Reason: 40 Unit/Kg - Heparin Protocol) Qty: 1 0RF heparin (porcine) 5,000 unit/mL Solution 4,100 unit IVPUSH PROTOCOL BOLUS PRN (Reason: 80 Unit/Kg - Heparin Protocol) Qty: 1 0RF morphine 4 mg/mL Syringe 2 mg IVPUSH Q4H PRN (Reason: Pain, Severe (Pain Scale 7-10)) Qty: 10 0RF Protocol: Hold for RR < HOLD and contact provider for RR < (bpm): 12 Rx Instructions: Partial Fill upon patient request. ondansetron HCl (PF) 4 mg/2 mL Solution 4 mg IVPUSH Q8H PRN (Reason: Nausea And Vomiting) Qty: 10 0RF metoprolol tartrate 25 mg tablet 12.5 mg PO Q6H Qty: 1 0RF acetaminophen [Tylenol Extra Strength] 500 mg tablet 500 mg PO Q6H PRN (Reason: fever or pain) Qty: 14 0RF lidocaine [Lidoderm] 5 % adhesive patch,medicated 1 patch topical DAILY MDD remove after 12 hours PRN (Reason: pain) Qty: 30 0RF Rx Instructions: leave on most painful area for up to 12 hrs cyclobenzaprine 5 mg tablet 5 mg PO Q8H PRN (Reason: pain (scale score 7-10)) 5 Days Qty: 14 0RF cefuroxime axetil 250 mg tablet 250 mg PO BID 7 Days Qty: 14 0RF lidocaine 5 % adhesive patch,medicated 1 patch topical DAILY PRN (Reason: pain) Qty: 15 0RF Rx Instructions: leave on most painful area for up to 12 hrs acetaminophen [Tylenol] 325 mg capsule 325 mg PO Q4H PRN (Reason: pain) Qty: 30 0RF acetaminophen [Tylenol Extra Strength] 500 mg tablet 500 mg PO Q6H PRN (Reason: fever or pain) Qty: 14 0RF lidocaine [Lidoderm] 5 % adhesive patch,medicated 1 patch topical DAILY MDD remove after 12 hours PRN (Reason: pain) Qty: 30 0RF Rx Instructions: leave on most painful area for up to 12 hrs naproxen 500 mg tablet 500 mg PO BID PRN (Reason: pain) 7 Days Qty: 20 0RF cyclobenzaprine 5 mg tablet 5 mg PO Q8H PRN (Reason: pain (scale score 7-10)) 5 Days Qty: 14 0RF doxycycline hyclate 100 mg tablet 100 mg PO Q12H 7 Days Qty: 14 0RF benzonatate 100 mg capsule 100 mg PO TID PRN (Reason: cough) 5 Days Qty: 15 0RF tramadol 50 mg tablet 50 mg PO BID PRN (Reason: pain) Qty: 6 0RF Print Language: Swedish
[2024-09-01 23:06] VITALS: BP 148/83; PULSE 72; RESP 17; TEMP 36.8; O2SAT 96
[2024-09-01 23:24] VITALS: BP 148/83; PULSE 72; RESP 17; TEMP 36.8; O2SAT 96
== END 2024-09-01 23:25 | disposition home or self-care (01) ==
PROVIDERS: Physician Assistant Medical; Emergency Provider Emergency Medicine
DX: B34.9 Viral infection, unspecified (principal); M94.0 Chondrocostal junction syndrome [Tietze]; R05.9 Cough, unspecified; R06.02 Shortness of breath; I10 Essential (primary) hypertension; E78.5 Hyperlipidemia, unspecified; Z79.899 Other long term (current) drug therapy; Z03.818 Encounter for observation for suspected exposure to other biological agents ruled out
CPT/HCPCS: 0241U; 36415; 71046; 80048; 83735; 84484; 85025; 93005; 99283; 99284

== ENCOUNTER → 2024-09-01 18:31 | Outpatient (BNV) | payer OTHER, SELFPAY | PROVIDERS: Emergency Provider Emergency Medicine; Visit Provider Internal Medicine Cardiovascular Disease | DX: R94.31 Abnormal electrocardiogram [ECG] [EKG] (principal) | CPT/HCPCS: 93010 ==

== ENCOUNTER 2024-11-09 17:23 | Emergency (ER) | payer OTHER, SELFPAY ==
[2024-11-09 18:29] VITALS: BP 188/96; PULSE 117; O2SAT 98; BMI 21.6
--- NOTE | 2024-11-09 18:57 | ED_ITS ---
HPI - General Adult General Chief complaint: General Medical Stated complaint: anxious episode after bad news Time Seen by Provider: 11/09/24 17:59 Source: patient, family, RN notes reviewed, old records reviewed and conference interpreter Mode of arrival: EMS Limitations: language barrier History of Present Illness ED Provider: Demario HPI narrative: 79-year-old female with past medical significant for coronary artery disease, hypertension presents for evaluation of depression with suicidal ideation. Per the patient and family, she recently learned that her son either yesterday or this morning. The patient is grieving and made numerous suicidal comments She does not have a plan for suicide. She also complains of chest pain Related Data Home Medications ?Medication ?Instructions ?Recorded ?Confirmed benazepril 10 mg tablet 1 tab PO QAM 11/20/20 08/27/22 montelukast 10 mg tablet 1 tab PO BEDTIME 11/20/20 08/27/22 sertraline 100 mg tablet 200 mg PO DAILY 11/20/20 08/27/22 calcium 600 mg (as 1 tab PO BID 08/27/22 08/27/22 carbonate)-vitamin D3 5 mcg (200 unit) tablet fluticasone 500 mcg-salmeterol 50 1 puff inhalation BID 08/27/22 08/27/22 mcg/dose blistr powdr for inhalation fluticasone propionate 50 1 spray intranasal DAILY PRN 08/27/22 08/27/22 mcg/actuation nasal Allergy Symptoms spray,suspension isosorbide mononitrate 60 mg 1 tab PO DAILY 08/27/22 08/27/22 tablet,extended release 24 hr multivitamin-ferrous 1 tab PO DAILY 08/27/22 08/27/22 fumarate-folic acid 18 mg-400 mcg tablet (Certavite-Antioxidant) omeprazole 20 mg capsule,delayed 1 cap PO DAILY 08/27/22 08/27/22 release trazodone 100 mg tablet 100 mg PO BEDTIME PRN Insomnia 08/27/22 08/27/22 trazodone 100 mg tablet 200 mg PO BEDTIME 08/27/22 08/27/22 umeclidinium 62.5 mcg/actuation 1 puff inhalation DAILY 08/27/22 08/27/22 blister powder for inhalation (Incruse Ellipta) Previous Rx's ?Medication ?Instructions ?Recorded atorvastatin 80 mg tablet 80 mg PO BEDTIME #30 tabs 05/12/21 acetaminophen 500 mg tablet 500 mg PO Q6H PRN fever or pain 04/22/22 (Tylenol Extra Strength) #14 tabs cyclobenzaprine 5 mg tablet 5 mg PO Q8H PRN pain (scale score 04/22/22 7-10) 5 days #14 tabs metoclopramide HCl 5 mg tablet 5 mg PO Q6H PRN nausea and 08/06/22 (Reglan) vomiting #10 tabs aspirin 81 mg chewable tablet 81 mg PO DAILY #1 tab 08/28/22 heparin (porcine) 25,000 unit/250 25,000 unit (250 mL) continuous IV 08/28/22 mL in 0.45 % sodium chloride IV infusion .Q0M #6,000 mL soln heparin (porcine) 5,000 unit/mL 2,100 unit (0.42 mL) IVPUSH 08/28/22 injection solution PROTOCOL BOLUS PRN 40 Unit/Kg - Heparin Protocol #1 mL heparin (porcine) 5,000 unit/mL 4,100 unit (0.82 mL) IVPUSH 08/28/22 injection solution PROTOCOL BOLUS PRN 80 Unit/Kg - Heparin Protocol #1 mL metoprolol tartrate 25 mg tablet 12.5 mg (1/2 x 25 mg) PO Q6H #1 tab 08/28/22 morphine 4 mg/mL intravenous 2 mg IVPUSH Q4H PRN Pain, Severe 08/28/22 syringe (Pain Scale 7-10) #10 mL ondansetron HCl (PF) 4 mg/2 mL 4 mg (2 mL) IVPUSH Q8H PRN Nausea 08/28/22 injection solution And Vomiting #10 mL ondansetron 4 mg disintegrating 4 mg PO Q8H PRN nausea and 11/27/22 tablet vomiting #10 tabs acetaminophen 500 mg tablet 500 mg PO Q6H PRN fever or pain 12/30/22 (Tylenol Extra Strength) #14 tabs cyclobenzaprine 5 mg tablet 5 mg PO Q8H PRN pain (scale score 12/30/22 7-10) 5 days #14 tabs lidocaine 5 % topical patch 1 patch topical DAILY PRN pain #30 12/30/22 (Lidoderm) ea naproxen 500 mg tablet 500 mg PO BID PRN pain 7 days #20 12/30/22 tabs benzonatate 100 mg capsule 100 mg PO TID PRN cough 5 days #15 02/10/23 caps doxycycline hyclate 100 mg tablet 100 mg PO Q12H 7 days #14 tabs 02/10/23 acetaminophen 500 mg tablet 500 mg PO Q6H PRN fever or pain 03/22/23 (Tylenol Extra Strength) #14 tabs cyclobenzaprine 5 mg tablet 5 mg PO Q8H PRN pain (scale score 03/22/23 7-10) 5 days #14 tabs lidocaine 5 % topical patch 1 patch topical DAILY PRN pain #30 03/22/23 (Lidoderm) ea cefuroxime axetil 250 mg tablet 250 mg PO BID 7 days #14 tabs 03/24/23 tramadol 50 mg tablet 50 mg PO BID PRN pain #6 tabs 05/12/23 acetaminophen 325 mg capsule 325 mg PO Q4H PRN pain #30 caps 05/24/24 (Tylenol) lidocaine 5 % topical patch 1 patch topical DAILY PRN pain #15 05/24/24 ea methocarbamol 750 mg tablet 750 mg PO BEDTIME PRN pain #7 tabs 09/01/24 Allergies Allergy/AdvReac Type Severity Reaction Status Date / Time No Known Allergies Allergy Verified 11/09/24 18:31 Review of Systems 2 Constitutional: Constitutional: Denies body ache(s), Denies chills, Denies fever(s) and Denies headache(s) Eyes: Eyes: Denies blurry vision ENT: Denies vertigo and Denies headache(s) Cardiovascular: Cardiovascular: Reports chest pain, Reports chest pain at rest and Denies dyspnea Respiratory: Respiratory: Denies cough and Denies dyspnea Gastrointestinal: Gastrointestinal: Denies abdominal pain, Denies nausea and Denies vomiting Musculoskeletal: Musculoskeletal: Denies back pain Integumentary/Breasts: Skin/Breast: Denies rash Neurologic: Denies vertigo and Denies headache(s) Psychiatric: Psychiatric: Reports depression, Denies auditory hallucinations, Denies visual hallucinations, Denies homicidal ideation and Reports suicidal ideation PMFSH Past Medical History Medical History Multinodular goiter (nontoxic) Pulmonary embolism Asthma Pancreatitis Diabetes Hypertension High cholesterol GERD (gastroesophageal reflux disease) Aortic insufficiency Depression NSTEMI (non-ST elevated myocardial infarction) Surgical History No history of previous surgery Family History Family History Father Hypertension Heart disease Mother Hypertension Heart disease Social History Social History Household Members: Family and Other Household Members Other:: daughter is casino controller Housing: Apartment Do you presently have visiting nurse or other home services: No Alcohol intake: never Patient Tobacco Use Status: Never used Tobacco Smoked in Last 30 Days: No Second Hand Smoke Exposure: No Use of substances other than those prescribed or required for medical reasons: No Advance Directives: No Advance Directives Information Provided: No Do you have a plan to hurt others: No Plan service: No Current occupational status: unemployed and disabled Physical Exam ED Vital Signs: Vital Signs - 24 hr 11/09/24 20:38 11/09/24 22:31 11/09/24 22:35 Temperature 98.8 F 98.9 F Pulse Rate 89 93 93 Respiratory Rate 16 16 Blood Pressure 121/76 146/84 H 146/84 H Pulse Oximetry 94 98 Oxygen Delivery Method Room Air Room Air 11/09/24 23:00 11/10/24 00:34 11/10/24 01:47 Temperature 98.0 F 98.3 F Pulse Rate 109 H 75 86 Respiratory Rate 18 16 Blood Pressure 147/80 H 121/70 153/88 H Pulse Oximetry 94 96 Oxygen Delivery Method Room Air Room Air BMI result Body Mass Index 21.6 Const General: healthy appearing, comfortable, no acute distress, alert and awake Nutritional Appearance: well nourished Orientation/consciousness: patient oriented x3 HENMT Head: Yes normocephalic and Yes atraumatic Eyes Eyelids: Yes eyelids normal Conjunctivae: conjunctivae normal Sclerae: sclerae normal Corneas: corneas normal Pupils: Equal, round and reactive pupils present EOM: EOMs intact bilaterally Neck Neck: Yes full ROM Resp Effort & Inspection: normal respiratory effort, able to speak in complete sentences and not labored Cardio Rate: regular rate Rhythm: regular rhythm Skin General skin exam: elasticity normal Neuro General: patient oriented x3 Cranial nerves: Yes Equal, round and reactive pupils present and Yes Bilaterally intact EOM present Cognition (Neuro): normal cognition Extrem Other: Moving all extremities well without any obvious deformities Course Reevaluation(s) Reevaluation #1: Patient's EKG is nonischemic, however initial troponin came back at 233. The patient's repeat troponin resulted at 403. She was complaining of 1/10 chest pain. She was given aspirin, morphine, and 2 doses of nitroglycerin. Her chest pain is currently a 1/10. I discussed with Cardiology, Dr Encarnacion who recommends heparin drip and transfer to facility capable of cardiac catheterization. We called [facility] and they do not have any beds available, we will discuss with [facility] Time: 01:19 Reevaluation #2: Patient declined by both [facility] and [facility]. I discussed with the [facility] transfer line. The patient was accepted to [facility] under the care of Dr. Byers Time: 01:33 Medications Administered Generic Name Dose Route Start Last Admin Trade Name Freq PRN Reason Stop Dose Admin Nitroglycerin 0.4 mg 11/09/24 22:23 11/09/24 23:00 Nitroglycerin 0.4 Mg Tab.Subl SUBLINGUAL 0.4 mg [id number] PRN Administration Chest Pain Discontinued Medications Generic Name Dose Route Start Last Admin Trade Name Freq PRN Reason Stop Dose Admin Aspirin 325 mg 11/09/24 22:44 11/09/24 22:59 Aspirin 325 Mg Tablet PO 11/09/24 22:45 325 mg ONCE ONE Administration Heparin Sodium (Porcine) 3,500 unit 11/10/24 01:14 11/10/24 01:55 Heparin Sodium,Porcine 5,000 Unit/Ml Vial 60 unit/kg (3500 unit) 11/10/24 01:15 3,500 unit IVPUSH Administration ONCE ONE Lorazepam 1 mg 11/09/24 18:08 11/09/24 19:12 Lorazepam 1 Mg Tablet PO 11/09/24 18:09 1 mg ONCE ONE Administration Morphine Sulfate 4 mg 11/09/24 22:23 11/09/24 22:37 Morphine Sulfate 4 Mg/Ml Cartridge IVPUSH 11/09/24 22:24 4 mg ONCE ONE Administration Protocol Medical Decision Making Medical Decision Making MDM Narrative: 79-year-old female with past medical history as documented above presents for evaluation of depression with suicidal ideation. She also complains of chest pain. She has a history of coronary artery disease and a history of an NSTEMI. We will get an EKG, troponin. If the patient is medically cleared and rules out for ACS, she will be referred to the care team for her grief/depression with suicidal ideation Differential Diagnosis Differential Diagnoses: The differential diagnosis associated with the presentation includes Chest pain ACS less likely Grief Depression Suicidal ideation Lab Data 11/10/24 01:44 11/09/24 18:56 Labs: Lab Results 11/09/24 11/09/24 11/10/24 Range/Units 18:56 21:29 00:25 WBC 7.0 (4.8-10.8) X10*3/uL RBC 4.60 (4.20-5.50) X10*6/uL Hgb 13.3 (12.0-16.0) g/dl Hct 40.6 (37.0-47.0) % MCV 88.3 (80.0-98.0) fL MCH 28.9 (27.0-33.0) pg MCHC 32.8 (31.0-35.0) g/dl RDW 13.2 (11.0-16.0) % Plt Count 223 (160-400) X10*3/uL MPV 11.1 (9.4-12.3) fL Immature Gran % (Auto) 0.3 (0.0-0.4) % Neut % (Auto) 67.2 (45-73) % Lymph % (Auto) 20.1 (20-40) % [place] % (Auto) 10.4 (2-11) % Eos % (Auto) 1.6 (0-4) % Baso % (Auto) 0.4 (0-2) % Lymph # (Auto) 1.4 (1.2-4.9) X10*3/uL [place] # (Auto) 0.7 (0.1-1.2) X10*3/uL Eos # (Auto) 0.1 (0.0-0.4) X10*3/uL Baso # (Auto) 0.0 (0.0-0.2) X10*3/uL Abs Immat Gran (auto) 0.02 (0.00-0.03) X10*3/uL Absolute Neuts (auto) 4.7 (2.0-8.3) x10*3/uL Absolute Nucleated RBC 0.000 (0.0-0.012) X10*3/uL Nucleated RBC % (auto) 0.0 (0.0-0.2) /100WBC Sodium 139 (135-145) mmol/L Potassium 4.1 (3.3-5.1) mmol/L Chloride 107 (96-108) mmol/L Carbon Dioxide 24 (22-29) mmol/L Anion Gap 12 (12-20) BUN 21 H (9-16) mg/dL Creatinine 0.72 (0.5-1.4) mg/dL Estim Creat Clear Calc 57.0 Estimated GFR > 60 Random Glucose 139 H (60-115) mg/dL Calcium 9.3 (8.4-10.2) mg/dL Total Bilirubin 0.5 (0.0-1.0) mg/dL AST 33 H (5-31) U/L ALT 25 (0-31) U/L Alkaline Phosphatase 159 H (39-117) U/L Troponin I High Sens 233.1 H* D 403.8 H* D (<3.5-17.0) ng/L Total Protein 7.7 (6.5-8.0) g/dL Albumin 4.0 (3.5-5.0) g/dL Urine Color Yellow Urine Appearance Clear Urine pH 6.0 (5.0-9.0) Ur Specific [place] 1.025 (1.005-1.025) Urine Protein 30 (1+) H (Neg-Trace) mg/dL Urine Glucose (UA) Negative (Negative) mg/dL Urine Ketones Negative (Negative) mg/dL Urine Blood Negative (Negative) Urine Nitrite Negative (Negative) Ur Leukocyte Esterase Trace H (Negative) Urine RBC 0-2 (0-2) /HPF Urine WBC 0-5 (0-5) /HPF Ur Squamous Epith Cells 0-2 (0-2) /HPF Urine Bacteria None Seen (None Seen) Hyaline Casts 0-2 (0-2) /LPF Salicylates < 5.0 L (15-30) mg/dL Urine Opiates Screen Not Detected (Not Detect) Ur Buprenorphine Scrn Not Detected (Not Detect) ng/mL Ur Oxycodone Screen Not Detected (Not Detect) ng/mL Urine Methadone Screen Not Detected (Not Detect) ng/mL Urine Fentanyl Screen Not Detected (Not Detect) Acetaminophen < 3 (<30) mcg/mL Ur Barbiturates Screen Not Detected (Not Detect) Ur Phencyclidine Scrn Not Detected (Not Detect) Ur Amphetamines Screen Not Detected (Not Detect) U Benzodiazepines Scrn Not Detected (Not Detect) Urine Cocaine Screen Not Detected (Not Detect) U Marijuana (THC) Screen Not Detected (Not Detect) Ethyl Alcohol < 10 mg/dL 11/10/24 Range/Units 01:44 WBC 7.6 (4.8-10.8) X10*3/uL RBC 4.39 (4.20-5.50) X10*6/uL Hgb 12.8 (12.0-16.0) g/dl Hct 38.6 (37.0-47.0) % MCV 87.9 (80.0-98.0) fL MCH 29.2 (27.0-33.0) pg MCHC 33.2 (31.0-35.0) g/dl RDW 13.3 (11.0-16.0) % Plt Count 203 (160-400) X10*3/uL MPV 11.1 (9.4-12.3) fL Immature Gran % (Auto) (0.0-0.4) % Neut % (Auto) (45-73) % Lymph % (Auto) (20-40) % [place] % (Auto) (2-11) % Eos % (Auto) (0-4) % Baso % (Auto) (0-2) % Lymph # (Auto) (1.2-4.9) X10*3/uL [place] # (Auto) (0.1-1.2) X10*3/uL Eos # (Auto) (0.0-0.4) X10*3/uL Baso # (Auto) (0.0-0.2) X10*3/uL Abs Immat Gran (auto) (0.00-0.03) X10*3/uL Absolute Neuts (auto) (2.0-8.3) x10*3/uL Absolute Nucleated RBC 0.000 (0.0-0.012) X10*3/uL Nucleated RBC % (auto) 0.0 (0.0-0.2) /100WBC Sodium (135-145) mmol/L Potassium (3.3-5.1) mmol/L Chloride (96-108) mmol/L Carbon Dioxide (22-29) mmol/L Anion Gap (12-20) BUN (9-16) mg/dL Creatinine (0.5-1.4) mg/dL Estim Creat Clear Calc Estimated GFR Random Glucose (60-115) mg/dL Calcium (8.4-10.2) mg/dL Total Bilirubin (0.0-1.0) mg/dL AST (5-31) U/L ALT (0-31) U/L Alkaline Phosphatase (39-117) U/L Troponin I High Sens (<3.5-17.0) ng/L Total Protein (6.5-8.0) g/dL Albumin (3.5-5.0) g/dL Urine Color Urine Appearance Urine pH (5.0-9.0) Ur Specific [place] (1.005-1.025) Urine Protein (Neg-Trace) mg/dL Urine Glucose (UA) (Negative) mg/dL Urine Ketones (Negative) mg/dL Urine Blood (Negative) Urine Nitrite (Negative) Ur Leukocyte Esterase (Negative) Urine RBC (0-2) /HPF Urine WBC (0-5) /HPF Ur Squamous Epith Cells (0-2) /HPF Urine Bacteria (None Seen) Hyaline Casts (0-2) /LPF Salicylates (15-30) mg/dL Urine Opiates Screen (Not Detect) Ur Buprenorphine Scrn (Not Detect) ng/mL Ur Oxycodone Screen (Not Detect) ng/mL Urine Methadone Screen (Not Detect) ng/mL Urine Fentanyl Screen (Not Detect) Acetaminophen (<30) mcg/mL Ur Barbiturates Screen (Not Detect) Ur Phencyclidine Scrn (Not Detect) Ur Amphetamines Screen (Not Detect) U Benzodiazepines Scrn (Not Detect) Urine Cocaine Screen (Not Detect) U Marijuana (THC) Screen (Not Detect) Ethyl Alcohol mg/dL Discharge Plan Discharge Clinical Impression: Chest pain, Depression with suicidal ideation, Grief, Acute non-ST elevation myocardial infarction (NSTEMI) Patient Disposition: [facility] Hospital Transfer Details: [facility] Prescriptions: No Action sertraline 100 mg tablet 200 mg PO DAILY montelukast 10 mg tablet 1 tab PO BEDTIME benazepril 10 mg tablet 1 tab PO QAM atorvastatin 80 mg Tablet 80 mg PO BEDTIME Qty: 30 0RF acetaminophen [Tylenol Extra Strength] 500 mg tablet 500 mg PO Q6H PRN (Reason: fever or pain) Qty: 14 0RF cyclobenzaprine 5 mg tablet 5 mg PO Q8H PRN (Reason: pain (scale score 7-10)) 5 Days Qty: 14 0RF metoclopramide HCl [Reglan] 5 mg tablet 5 mg PO Q6H PRN (Reason: nausea and vomiting) Qty: 10 0RF ondansetron 4 mg tablet,disintegrating 4 mg PO Q8H PRN (Reason: nausea and vomiting) Qty: 10 0RF calcium carbonate-vitamin D3 600 mg-5 mcg (200 unit) tablet 1 tab PO BID fluticasone propion-salmeterol 500-50 mcg/dose blister with device 1 puff inhalation BID Certavite-Antioxidant 18-400 mg-mcg tablet 1 tab PO DAILY Incruse Ellipta 62.5 mcg/actuation blister with device 1 puff inhalation DAILY isosorbide mononitrate 60 mg tablet extended release 24 hr 1 tab PO DAILY trazodone 100 mg tablet 200 mg PO BEDTIME omeprazole 20 mg capsule,delayed release(DR/EC) 1 cap PO DAILY trazodone 100 mg tablet 100 mg PO BEDTIME PRN (Reason: Insomnia) Rx Instructions: If addition to 200 mg if cannot sleep fluticasone propionate 50 mcg/actuation [place],Suspension 1 spray INTRANASAL DAILY PRN (Reason: Allergy Symptoms) Rx Instructions: administer into each nostril heparin(porcine) in 0.45% NaCl 25,000 unit/250 mL Parenteral Solution 25,000 unit continuous IV infusion .Q0M Qty: 6000 0RF aspirin 81 mg Tablet,Chewable 81 mg PO DAILY Qty: 1 0RF heparin (porcine) 5,000 unit/mL Solution 2,100 unit IVPUSH PROTOCOL BOLUS PRN (Reason: 40 Unit/Kg - Heparin Protocol) Qty: 1 0RF heparin (porcine) 5,000 unit/mL Solution 4,100 unit IVPUSH PROTOCOL BOLUS PRN (Reason: 80 Unit/Kg - Heparin Protocol) Qty: 1 0RF morphine 4 mg/mL Syringe 2 mg IVPUSH Q4H PRN (Reason: Pain, Severe (Pain Scale 7-10)) Qty: 10 0RF Protocol: Hold for RR < HOLD and contact provider for RR < (bpm): 12 Rx Instructions: Partial Fill upon patient request. ondansetron HCl (PF) 4 mg/2 mL Solution 4 mg IVPUSH Q8H PRN (Reason: Nausea And Vomiting) Qty: 10 0RF metoprolol tartrate 25 mg tablet 12.5 mg PO Q6H Qty: 1 0RF acetaminophen [Tylenol Extra Strength] 500 mg tablet 500 mg PO Q6H PRN (Reason: fever or pain) Qty: 14 0RF lidocaine [Lidoderm] 5 % adhesive patch,medicated 1 patch topical DAILY MDD remove after 12 hours PRN (Reason: pain) Qty: 30 0RF Rx Instructions: leave on most painful area for up to 12 hrs cyclobenzaprine 5 mg tablet 5 mg PO Q8H PRN (Reason: pain (scale score 7-10)) 5 Days Qty: 14 0RF cefuroxime axetil 250 mg tablet 250 mg PO BID 7 Days Qty: 14 0RF lidocaine 5 % adhesive patch,medicated 1 patch topical DAILY PRN (Reason: pain) Qty: 15 0RF Rx Instructions: leave on most painful area for up to 12 hrs acetaminophen [Tylenol] 325 mg capsule 325 mg PO Q4H PRN (Reason: pain) Qty: 30 0RF methocarbamol 750 mg tablet 750 mg PO BEDTIME PRN (Reason: pain) Qty: 7 0RF acetaminophen [Tylenol Extra Strength] 500 mg tablet 500 mg PO Q6H PRN (Reason: fever or pain) Qty: 14 0RF lidocaine [Lidoderm] 5 % adhesive patch,medicated 1 patch topical DAILY MDD remove after 12 hours PRN (Reason: pain) Qty: 30 0RF Rx Instructions: leave on most painful area for up to 12 hrs naproxen 500 mg tablet 500 mg PO BID PRN (Reason: pain) 7 Days Qty: 20 0RF cyclobenzaprine 5 mg tablet 5 mg PO Q8H PRN (Reason: pain (scale score 7-10)) 5 Days Qty: 14 0RF doxycycline hyclate 100 mg tablet 100 mg PO Q12H 7 Days Qty: 14 0RF benzonatate 100 mg capsule 100 mg PO TID PRN (Reason: cough) 5 Days Qty: 15 0RF tramadol 50 mg tablet 50 mg PO BID PRN (Reason: pain) Qty: 6 0RF Print Language: Kiswahili
--- NOTE | 2024-11-09 19:00 | ECG_ITS ---
Test Reason : CHEST PAIN Blood Pressure : */* mmHG Vent. Rate : 83 BPM Atrial Rate : 83 BPM P-R Int : 122 ms QRS Dur : 64 ms QT Int : 358 ms P-R-T Axes : 39 -7 19 degrees QTcB Int : 420 ms Normal sinus rhythm cannot exclude old inferior infarct vs normal variant When compared with ECG of 01-Sep-2024 18:37, No significant changes seen Referred By: Bernardo Hanks Electronically Signed By: RAGHU MULLINS
[2024-11-09 19:05] LABS: MANUAL DIFF FLAG NO
[2024-11-09 19:07] LABS: Basophils Percent Auto 0.4 % (0-2); Eosinophils Absolute Auto 0.1 X10*3/uL (0.0-0.4); Eosinophils Percent Auto 1.6 % (0-4); Hematocrit 40.6 % (37.0-47.0); Hemoglobin 13.3 g/dl (12.0-16.0); Imm Gran Abs Auto 0.02 X10*3/uL (0.00-0.03); Imm Gran Pct Auto 0.3 % (0.0-0.4); Lymphocytes Absolute Auto 1.4 X10*3/uL (1.2-4.9); Lymphocytes Percent Auto 20.1 % (20-40); Mean Corpuscular HGB Conc 32.8 g/dl (31.0-35.0); Mean Corpuscular Hemoglobin 28.9 pg (27.0-33.0); Mean Corpuscular Volume 88.3 fL (80.0-98.0); Mean Platelet Volume 11.1 fL (9.4-12.3); Monocytes Absolute Auto 0.7 X10*3/uL (0.1-1.2); Monocytes Percent Auto 10.4 % (2-11); Neutrophils Absolute Auto 4.7 x10*3/uL (2.0-8.3); Neutrophils Percent Auto 67.2 % (45-73); Platelet Count 223 X10*3/uL (160-400); Red Cell Distribution Width 13.2 % (11.0-16.0)
[2024-11-09 19:08] LABS: Appearance Urine Clear; Color Urine Yellow; Glucose Urine UA Negative (Negative); Leukocyte Esterase Urine Trace (Negative); Nitrite Urine Negative (Negative); Specific Gravity - Urine 1.025 (1.005-1.025); UMIC TRIGGER UA YES; Urine Blood Negative (Negative); Urine Ketones Negative (Negative); Urine Protein 30 (1+) mg/dL (Neg-Trace)
[2024-11-09 19:11] LABS: Bacteria Urine None Seen (None Seen); Hyaline Casts Urine 0-2 /LPF (0-2); RBC Urine 0-2 /HPF (0-2); Squamous Epithelial Cell Urine 0-2 /HPF (0-2); WBC Urine 0-5 /HPF (0-5)
[2024-11-09] MEDS: LORazepam 1 MG TABLET PO (19:12)
[2024-11-09 19:17] LABS: Amphetamine Screen Urine Not Detected (Not Detect); Barbiturates, Urine Not Detected (Not Detect); Benzodiazepines Screen Urine Not Detected (Not Detect); Buprenorphine Scr Not Detected (Not Detect); Cannabinoid Screen Urine Not Detected (Not Detect); Cocaine Screen Urine Not Detected (Not Detect); Fentanyl, urine Not Detected (Not Detect); Methadone Screen, Urine Not Detected (Not Detect); Opiate Screen Urine Not Detected (Not Detect); Oxycodone Screen Urine Not Detected (Not Detect); Phencyclidine Screen Urine Not Detected (Not Detect)
[2024-11-09 19:26] LABS: Acetaminophen LAB < 3 mcg/mL (<30); Salicylate < 5.0 mg/dL (15-30)
[2024-11-09 19:27] LABS: Alanine Aminotransferase 25 U/L (0-31); Alkaline Phosphatase 159 U/L (39-117); Anion Gap 12 (12-20); Aspartate Amino Transferase 33 U/L (5-31); Bilirubin Total 0.5 mg/dL (0.0-1.0); Blood Urea Nitrogen 21 mg/dL (9-16); Calcium 9.3 mg/dL (8.4-10.2); Carbon Dioxide 24 mmol/L (22-29); Chloride 107 mmol/L (96-108); Estimated Glomerular Filt Rate > 60; Ethanol < 10 mg/dL; Glucose Random 139 mg/dL (60-115); Potassium 4.1 mmol/L (3.3-5.1); Sodium 139 mmol/L (135-145); Total Protein 7.7 g/dL (6.5-8.0)
[2024-11-09 20:38] VITALS: BP 121/76; PULSE 89; RESP 16; TEMP 37.1; O2SAT 94
[2024-11-09 22:08] LABS: Troponin-I High Sensitivity 233.1 ng/L (<3.5-17.0)
[2024-11-09 22:31] VITALS: BP 146/84; PULSE 93; RESP 16; TEMP 37.2; O2SAT 98
[2024-11-09 22:35] VITALS: BP 146/84; PULSE 93
[2024-11-09] MEDS: Nitroglycerin 0.4 MG TAB.SUBL SUBLINGUAL ×2 (22:35→23:00)
[2024-11-09] MEDS: Morphine Sulfate 4 MG/ML CARTRIDGE IVPUSH (22:37)
[2024-11-09] MEDS: Aspirin 325 MG TABLET PO (22:59)
[2024-11-09 23:00] VITALS: BP 147/80; PULSE 109
[2024-11-10 00:34] VITALS: BP 121/70; PULSE 75; RESP 18; TEMP 36.7; O2SAT 94
[2024-11-10 01:01] LABS: Troponin-I High Sensitivity 403.8 ng/L (<3.5-17.0)
[2024-11-10 01:47] VITALS: BP 153/88; PULSE 86; RESP 16; TEMP 36.8; O2SAT 96
[2024-11-10 01:51] LABS: Hematocrit 38.6 % (37.0-47.0); Hemoglobin 12.8 g/dl (12.0-16.0); Mean Corpuscular HGB Conc 33.2 g/dl (31.0-35.0); Mean Corpuscular Hemoglobin 29.2 pg (27.0-33.0); Mean Corpuscular Volume 87.9 fL (80.0-98.0); Mean Platelet Volume 11.1 fL (9.4-12.3); Platelet Count 203 X10*3/uL (160-400); Red Blood Count 4.39 X10*6/uL (4.20-5.50); Red Cell Distribution Width 13.3 % (11.0-16.0); White Blood Count 7.6 X10*3/uL (4.8-10.8)
[2024-11-10] MEDS: Heparin Sodium,Porcine 5,000 UNIT/ML VIAL 3500 UNIT IVPUSH (01:55)
[2024-11-10 01:57] LABS: INTERNATIONAL NORM RATIO 1.2 (0.9-1.1)
[2024-11-10 02:00] LABS: PTT Heparin Drip 35.5 SEC (53-77.9)
[2024-11-10 02:15] VITALS: BMI 19.9
[2024-11-10] MEDS: Heparin Sodium,Porcine/1/2NS 25,000 UNIT/250 ML IV.SOLN 6.52 UNIT IVCONT (02:22)
[2024-11-10 02:25] VITALS: BP 168/88; PULSE 92; RESP 14; TEMP 36.7; O2SAT 96
--- NOTE | 2024-11-10 02:49 | PC.NURSE ---
Called [facility] ED to give report to Lenora COPELAND
[2024-11-10 02:50] VITALS: BP 168/88; PULSE 92; RESP 14; TEMP 36.7; O2SAT 96
== END 2024-11-10 02:53 | disposition short-term general hospital (02) ==
PROVIDERS: Physician Assistant; Emergency Provider Internal Medicine; PCP Family Medicine
DX: R07.89 Other chest pain (principal); F33.1 Major depressive disorder, recurrent, moderate; R45.851 Suicidal ideations; I21.4 Non-ST elevation (NSTEMI) myocardial infarction; F43.20 Adjustment disorder, unspecified; Z51.81 Encounter for therapeutic drug level monitoring; Z79.899 Other long term (current) drug therapy
CPT/HCPCS: 36415; 80053; 80143; 80179; 80307; 81001; 84484; 85025; 85027; 85610; 85730; 93005; 96374; 96375; 99285; J1644; J2270

== ENCOUNTER → 2024-11-09 19:00 | Outpatient (BNV) | payer OTHER, SELFPAY | PROVIDERS: Emergency Provider Internal Medicine; PCP Family Medicine; Visit Provider Internal Medicine | DX: R07.9 Chest pain, unspecified (principal) | CPT/HCPCS: 93010 ==

== ENCOUNTER 2025-01-16 19:26 | Emergency (ER) | payer OTHER, SELFPAY ==
--- NOTE | 2025-01-16 | ECG_ITS ---
Test Reason : CHEST PAIN Blood Pressure : */* mmHG Vent. Rate : 76 BPM Atrial Rate : 76 BPM P-R Int : 122 ms QRS Dur : 66 ms QT Int : 380 ms P-R-T Axes : 39 -9 27 degrees QTcB Int : 427 ms Normal sinus rhythm Normal ECG When compared with ECG of 09-Nov-2024 20:42, No significant change was found Referred By: Generic ED Physician Electronically Signed By: Sher Dugan
[2025-01-16 19:35] VITALS: BP 156/70; PULSE 90; O2SAT 98
[2025-01-16 19:36] VITALS: BP 146/66; PULSE 74; RESP 16; TEMP 36.8; O2SAT 96; BMI 22.2
[2025-01-16 19:49] LABS: MANUAL DIFF FLAG NO
[2025-01-16 19:51] LABS: Basophils Percent Auto 0.5 % (0-2); Eosinophils Absolute Auto 0.2 X10*3/uL (0.0-0.4); Eosinophils Percent Auto 3.4 % (0-4); Hematocrit 38.5 % (37.0-47.0); Hemoglobin 12.5 g/dl (12.0-16.0); Imm Gran Abs Auto 0.02 X10*3/uL (0.00-0.03); Imm Gran Pct Auto 0.3 % (0.0-0.4); Lymphocytes Absolute Auto 1.9 X10*3/uL (1.2-4.9); Lymphocytes Percent Auto 32.1 % (20-40); Mean Corpuscular HGB Conc 32.5 g/dl (31.0-35.0); Mean Corpuscular Volume 89.3 fL (80.0-98.0); Mean Platelet Volume 11.1 fL (9.4-12.3); Monocytes Absolute Auto 0.7 X10*3/uL (0.1-1.2); Monocytes Percent Auto 12.2 % (2-11); Neutrophils Absolute Auto 3.1 x10*3/uL (2.0-8.3); Neutrophils Percent Auto 51.5 % (45-73); Platelet Count 196 X10*3/uL (160-400); Red Blood Count 4.31 X10*6/uL (4.20-5.50); White Blood Count 5.9 X10*3/uL (4.8-10.8)
--- OUTSIDE RECORDS SUMMARY | 2025-01-16 19:51 | XMS_ITS | Clinical Summary ---
Author Organization [employer] Address [address] [place] [address] [address] [place] [address] Care Team Providers Care Claim Investigator Name Role Phone Tiffany Kent MD Primary Care Provider [phone] Cy Perdue MD Unavailable [phone] Allergies Active Allergy Reactions Criticality Noted Date Comments Oxycodone 09/23/2022 Medications albuterol (Ventolin HFA) 108 (90 Base) MCG/ACT inhaler inhale 2 puff by inhalation route every 4 hours as needed Active Eliquis 5 MG tablet Take 1 tablet by mouth in the morning and at bedtime. 08/18/20 22 Active cromolyn (Opticrom) 4 % ophthalmic solution instill 1 drop by ophthalmic route 4 times every day into affected eye(s) 04/27/20 22 Active isosorbide mononitrate ER (Imdur) 60 MG 24 hr tablet Take 1 tablet by mouth in the morning. 08/18/20 22 Active nitroglycerin (Nitrostat) 0.[address] 1 tablet (0.4MG) by sublingual route at the 1st sign of attack; may repeat every 5 min until relief; if pain persists after 3 tablets in 15 min, prompt medical attention is recommended 05/28/20 21 Active sertraline (Zoloft) 100 MG tabletIndicatio ns:Severe dementia with other behavioral disturbance, unspecified dementia type (CMS/HCC) Take ONE tab po daily, dose decreased in hospital 08/2022 30 tablet 11 09/24/19 23 Active Fluticasone-Ted meterol 500-50 MCG/ACT aerosol powder INHALE 1 PUFF BY MOUTH TWICE DAILY IN THE MORNING AND IN THE EVENING 12 HOURS APART 30 each 11 02/25/20 23 Active cyclobenzaprine (Flexeril) 5 MG tablet 03/22/20 23 Active lidocaine (Lidoderm) 5 % patch 04/07/20 23 Active lidocaine (Xylocaine) 5 % ointmentIndicat ions:Right-side d low back pain with right-sided sciatica, unspecified chronicity apply by topical route 1 - 3 times every day to affected area(s) as needed 50 g 2 06/09/20 23 Active Acetaminophen Extra Strength 500 MG tabletIndicatio ns:Right-sided low back pain with right-sided sciatica, unspecified chronicity TAKE 1 OR 2 TABLETS BY MOUTH EVERY 8 HOURS NEEDED 30 tablet 1 06/24/20 23 Active sertraline (Zoloft) 25 MG tablet 01/10/20 24 Active Calcium + Vitamin D3 600-5 MG-MCG tabletIndicatio ns:Osteopenia, unspecified location TAKE 1 TABLET BY MOUTH TWICE DAILY IN THE MORNING AND IN THE EVENING 180 tablet 3 04/05/20 24 Active loratadine (Claritin) 10 MG tabletIndicatio ns:Allergic rhinitis due to other allergic trigger, unspecified seasonality TAKE 1 TABLET BY MOUTH EVERY DAY NEEDED 90 tablet 1 06/22/20 24 Active donepezil (Aricept) 5 MG tabletIndicatio ns:Severe dementia with other behavioral disturbance, unspecified dementia type (CMS/HCC) Take 1 tablet (5 mg) by mouth at bedtime. 90 tablet 3 07/05/20 24 Active montelukast (Singulair) 10 MG tabletIndicatio ns:Mild intermittent asthma without complication TAKE 1 TABLET BY MOUTH EVERY EVENING 90 tablet 1 08/01/20 24 Active atorvastatin (Lipitor) 80 MG tabletIndicatio ns:Dyslipidemia TAKE 1 TABLET BY MOUTH AT BEDTIME 90 tablet 3 08/22/20 24 Active omeprazole (PriLOSEC) [address] capsuleIndicati ons:Gastroesoph ageal reflux disease, unspecified whether esophagitis present TAKE 1 CAPSULE BY MOUTH EVERY DAY BEFORE A MEAL 90 capsule 3 08/22/20 24 Active Aspirin Low Dose 81 MG EC tabletIndicatio ns:Essential hypertension,Ar teriosclerosis of coronary artery,Acute non-ST elevation myocardial infarction (NSTEMI) (CMS/HCC) TAKE 1 TABLET BY MOUTH EVERY MORNING 90 tablet 3 09/21/19 25 Active metoprolol succinate XL (Toprol-XL) 25 MG 24 hr tabletIndicatio ns:Essential hypertension,Ar teriosclerosis of coronary artery,Acute non-ST elevation myocardial infarction (NSTEMI) (CMS/[facility]) TAKE 1 TABLET BY MOUTH EVERY MORNING 90 tablet 3 09/21/19 25 Active Multiple Vitamins-Minera ls (CertaVite/Anti oxidants) tabletIndicatio ns:Vitamin deficiency TAKE 1 TABLET BY MOUTH EVERY MORNING WITH FOOD 90 tablet 3 11/21/19 25 Active Incruse Ellipta 62.5 MCG/ACT aerosol powder INHALE 1 PUFF BY MOUTH EVERY DAY AT THE SAME TIME 30 each 11 12/15/19 25 Active traZODone (Desyrel) 100 MG tablet take 2-3 tablets by oral route every day at bedtime 90 tablet 1 12/27/19 25 Active traZODone (Desyrel) 100 MG tablet take 2-3 tablets by oral route every day at bedtime 06/17/20 22 2024 Discontinued(R eorder (will not trigger notification to Pharmacy)) Active Problems Patient Care Coordination No te Formatting of this note migh t be different from the original. [facility] Die Holder: Mikayla Dumont Support Agency: [facility] Problem Noted Date Diagnosed Date Depression, recurrent 07/19/2024 Severe dementia with other b ehavioral disturbance, unspecified dementia type 04/13/2024 Overview (07/19/2024): Per daughter, pt's short-term memory has worsened over time. The pt at times does not recognize her daughter. - Pt will be needing 24 hour supervision and can't go out on her own. - I recommended she get an ID bracelet for safety purposes. - MMS: 09/18. Its complicated by the fact that she is illiterate. Nevertheless in the setting of family hx she likely has moderate to severe dementia. - No hx of GI bleeds. - labs were normal - ARICEPT NOT STARTED DUE TO RISK OF PROLONGED Qt IN SETTING OF TRAZODONE -CT 06/21/24 done for headache in ER : No evidence of acute intracranial hemorrhage or edematous territorial infarction. Moderate underlying microangiopathy and generalized cerebral volume loss Assessment & Plan (07/19/2024 2:42 PM EDT): Per daughter, pt's short-term memory has worsened over time. The pt at times does not recognize her daughter. - Pt will be needing 24 hour supervision and can't go out on her own. - I recommended she get an ID bracelet for safety purposes. - MMS: 09/18. Its complicated by the fact that she is illiterate. Nevertheless in the setting of family hx she likely has moderate to severe dementia. - No hx of GI bleeds. - labs were normal - ARICEPT NOT STARTED DUE TO RISK OF PROLONGED Qt IN SETTING OF TRAZODONE -CT 06/21/24 done for headache in ER : No evidence of acute intracranial hemorrhage or edematous territorial infarction. Moderate underlying microangiopathy and generalized cerebral volume loss Multinodular goiter (nontoxic) 06/07/2023 Right-sided low back pain with right-sided sciat ica 06/07/2023 Overview (06/08/2024): Referral done to Orthopedics 06/09/2023. XR Lumbosacral Spine 06/09/23 IMPRESSION: Multilevel degenerative disc disease, most prominent at L4-L5 and L5-S1. Assessment & Plan (06/09/2023 11:07 AM EDT): Referral done to Orthopedics 06/09/2023. Other specified health status 03/04/2023 Overview (07/19/2024): -Next annual evaluation due after 07/19/25 -MOLST was done with [facility] on 05/02/2014. -Last Eye Exam at [facility] with Dr. Hutchison on 11/2022, will request most recent note. -has dentures -health care proxy 07/19/24 Assessment & Plan (07/19/2024 2:40 PM EDT): -Next annual evaluation due after 07/19/25 -MOLST was done with [facility] on 05/02/2014. -Last Eye Exam at [facility] with Dr. Hutchison on 11/2022, will request most recent note. -has dentures -health care proxy 07/19/24 Assessment & Plan (03/04/2023 9:17 AM EDT): Next PE due after March 04/2024 -MOLST was done with [facility] on 05/02/2014. -Last Eye Exam at [facility] with Dr. Martin on 11/2022, will request most recent note. Right hip pain 10/06/2022 Overview (06/08/2024): Reports this is chronic but worse today with diarrhea. No evidence of acuet back pain. XR on 10/07/22 IMPRESSION: Enthesopathy of the right lesser trochanter. Assessment & Plan (10/06/2022 9:34 AM EST): Reports this is chronic but worse today with diarrhea. No evidence of acuet back pain. Will check x-ray of right hip. History of pulmonary embolism 09/24/2022 Overview (09/24/2022): -unprovoked pulmonary embolism -continue Eliquis for custodial anticoagulation -discuss fall prcautions Assessment & Plan (07/19/2024 2:44 PM EDT): -unprovoked pulmonary embolism -continue Eliquis for custodial anticoagulation -discuss fall prcautions Assessment & Plan (03/04/2023 8:54 AM EDT): -unprovoked pulmonary embolism -continue Eliquis for intermission coordinator anticoagulation -discuss fall prcautions Assessment & Plan (09/24/2022 11:56 AM EST): -unprovoked pulmonary embolism -continue Eliquis for custodial anticoagulation -discuss fall prcautions Urinary incontinence 09/24/2022 Overview (09/24/2022): Pt uses pull ups Assessment & Plan (09/24/2022 1:38 PM EST): -pt uses pull ups Chronic pain 09/23/2022 Acute non-ST elevation myocardial infarction (NS KALI) 03/03/2022 Overview (11/13/2024): -admitted 08/28/2022-09/01/2022 for NSTEMI -Underwent diagnostic catheterization which showed no obstructive disease, NSTEMI suspected to be from vasospasm. -ECHO showed EF 55 to 60%. -Started on aspirin and metoprolol. Diltiazem and benazepril discontinued given normal systolic BP on metoprolol and nitropaste. -admitted to [facility] 11/10/24 for chest pain with normal ECG, cardiac biomarkers mildly elevated but flat. Assessment & Plan (03/04/2023 8:54 AM EDT): -admitted 08/28/2022-09/01/2022 for NSTEMI -Underwent diagnostic catheterization which showed no obstructive disease, NSTEMI suspected to be from vasospasm. -ECHO showed EF 55 to 60%. -Started on aspirin and metoprolol. Diltiazem and benazepril discontinued given normal systolic BP on metoprolol and nitropaste. Assessment & Plan (09/24/2022 11:50 AM EST): -admitted 08/28/2022-09/01/2022 for NSTEMI -Underwent diagnostic catheterization which showed no obstructive disease, NSTEMI suspected to be from vasospasm. -ECHO showed EF 55 to 60%. -Started on aspirin and metoprolol. Diltiazem and benazepril discontinued given normal systolic BP on metoprolol and nitropaste. Anemia 03/03/2022 Arteriosclerosis of coronary artery 03/03/2022 Dementia 03/03/2022 Overview (09/24/2022): Per daughter, pt's short-term memory has worsened over time. The pt at times does not recognize her daughter. - Pt will be needing 24 hour supervision and can't go out on her own. - I recommended she get an ID bracelet for safety purposes. - MMS: 09/18. Its complicated by the fact that she is illiterate. Nevertheless in the setting of family hx she likely has moderate to severe dementia. - No hx of GI bleeds. - labs were normal - ARICEPT NOT STARTED DUE TO RISK OF PROLONGED Qt IN SETTING OF TRAZODONE Assessment & Plan (03/04/2023 8:54 AM EDT): Per daughter, pt's short-term memory has worsened over time. The pt at times does not recognize her daughter. - Pt will be needing 24 hour supervision and can't go out on her own. - I recommended she get an ID bracelet for safety purposes. - MMS: 09/18. Its complicated by the fact that she is illiterate. Nevertheless in the setting of family hx she likely has moderate to severe dementia. - No hx of GI bleeds. - labs were normal - ARICEPT NOT STARTED DUE TO RISK OF PROLONGED Qt IN SETTING OF TRAZODONE Assessment & Plan (09/24/2022 11:54 AM EST): Per daughter, pt's short-term memory has worsened over time. The pt at times does not recognize her daughter. - Pt will be needing 24 hour supervision and can't go out on her own. - I recommended she get an ID bracelet for safety purposes. - MMS: 09/18. Its complicated by the fact that she is illiterate. Nevertheless in the setting of family hx she likely has moderate to severe dementia. - No hx of GI bleeds. - labs were normal - ARICEPT NOT STARTED DUE TO RISK OF PROLONGED Qt IN SETTING OF TRAZODONE Thyroid nodule 03/03/2022 Overview (10/04/2024): -FNA 11/05/2016 benign -Biopsy on 06/26/[address] Hall -repeat US 10/28/2021 recommending follow up 2-3 years -ordered repeat thyroid US 07/19/24 -US reproted 10/04/23 US/US thyroid IMPRESSION: Heterogeneous, multinodular thyroid gland. A 1.8 cm TR 4 thyroid nodule meets criteria for biopsy. Correlation with prior biopsy results recommended to determine further management. Multiple additional subcentimeter thyroid nodules as detailed above. Continued surveillance recommended. -referred to endocrinology 10/04/24 Assessment & Plan (10/04/2024 9:33 AM EST): -FNA 11/05/2016 benign -Biopsy on 06/26/[address] Hall -repeat US 10/28/2021 recommending follow up 2-3 years -ordered repeat thyroid US 07/19/24 -US reproted 10/04/23 US/US thyroid IMPRESSION: Heterogeneous, multinodular thyroid gland. A 1.8 cm TR 4 thyroid nodule meets criteria for biopsy. Correlation with prior biopsy results recommended to determine further management. Multiple additional subcentimeter thyroid nodules as detailed above. Continued surveillance recommended. 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 She has continued SOB. No wheeze on exam. Euvolemic on exam and normal SaO2 on room air. Advised to continue Advair 500/50, restart Spiriva, albuterol prn. Referral to pulmonology. She agrees with the plan. Assessment & Plan (07/19/2024 2:42 PM EDT): Hx two hospitalizations for COPD exacerbation in 01/2015. She has continued SOB. No wheeze on exam. Euvolemic on exam and normal SaO2 on room air. Advised to continue Advair 500/50, restart Spiriva, albuterol prn. Referral to pulmonology. She agrees with the plan. Hyperlipidemia 11/16/2012 Overview (06/08/2024): Lab Results Component Value Date CHOL 115 04/17/2024 TRIG 107 04/17/2024 TRIG 97 03/04/2023 HDL 54 04/17/2024 LDLCHOLCAL 40 04/17/2024 -continue lifestyle modification -continue atorvastatin 80 mg Assessment & Plan (07/19/2024 2:44 PM EDT): Lab Results Component Value Date CHOL 115 04/17/2024 TRIG 107 04/17/2024 TRIG 97 03/04/2023 HDL 54 04/17/2024 LDLCHOLCAL 40 04/17/2024 -continue lifestyle modification -continue atorvastatin 80 mg Essential hypertension 11/16/2012 Overview (06/08/2024): -Blood pressure is at goal -Continue lifestyle modifications -Continue current medications Assessment & Plan (07/19/2024 2:43 PM EDT): -Blood pressure is at goal -Continue lifestyle modifications -Continue current medications Osteopenia 11/16/2012 Asthma 05/18/2012 Depressive disorder 05/18/2012 Overview (09/24/2022): -sertraline initially prescribed by psychiatry, decreased to 100mg daily during hospitalization for chest pain 08/2022 Assessment & Plan (03/04/2023 8:54 AM EDT): -sertraline initially prescribed by psychiatry, decreased to 100mg daily during hospitalization for chest pain 08/2022 Assessment & Plan (09/24/2022 1:37 PM EST): -sertraline initially prescribed by psychiatry, decreased to 100mg daily during hospitalization for chest pain 08/2022 Diabetes mellitus type 2, uncomplicated 05/18/20 12 Overview (07/19/2024): Diabetes is controlled. Lab Results Component Value Date HGBA1C 5.9 07/19/2024 HGBA1C 5.9 04/17/2024 HGBA1C 5.9 (H) 03/04/2023 Lab Results Component Value Date CREATININE 0.86 06/21/2024 EGFR >60 06/21/2024 MICROALBCREU 8.0 04/17/2024 LDLCHOLCAL 40 04/17/2024 -Shahab/Arb: -Statin therapy: atorvastatin 80 mg -Diabetic eye exam: followed by Dr. Irving Palencia of [facility] -Diabetic foot exam: done 07/19/24 -Continue lifestyle modifications -Continue current medications Assessment & Plan (07/19/2024 2:44 PM EDT): Diabetes is controlled. Lab Results Component Value Date HGBA1C 5.9 07/19/2024 HGBA1C 5.9 04/17/2024 HGBA1C 5.9 (H) 03/04/2023 Lab Results Component Value Date CREATININE 0.86 06/21/2024 EGFR >60 06/21/2024 MICROALBCREU 8.0 04/17/2024 LDLCHOLCAL 40 04/17/2024 -Shahab/Arb: -Statin therapy: atorvastatin 80 mg -Diabetic eye exam: followed by Dr. Irving Palencia of [facility] -Diabetic foot exam: done 07/19/24 -Continue lifestyle modifications -Continue current medications Gastroesophageal reflux disease 05/18/2012 Resolved Problems Problem Noted Date Diagnosed Date Resolved Date Dysuria 10/06/2022 03/04/2023 Overview (10/06/2022): Improved after augmentin started 09/29/2022. Ua showed >100,000 E.coli benoit sensitive. Will resend but hold off on continuing ABX. Assessment & Plan (10/06/2022 9:30 AM EST): Improved after augmentin started 09/29/2022. Ua showed >100,000 E.coli benoit sensitive. Will resend but hold off on continuing ABX. Diarrhea 10/06/2022 03/04/2023 Overview (10/06/2022): Likely from abx use. No evidence of C-Diff. Pt finished abx 48hours ago. Advised probiotic foods. Follow up if not resolved. Assessment & Plan (10/06/2022 9:27 AM EST): Likely from abx use. No evidence of C-Diff. Pt finished abx 48hours ago. Advised probiotic foods. Follow up if not resolved. Encounters Date Type Department Care Team Description 2025 Refill [facility] [address] [place] [address] Tiffany Kent MD Mild intermittent asthma without complication 12/26/2024 Refill [facility] [address] [place], [place] [id number] Tiffany Kent MD 12/14/2024 Refill [facility] [address] [place] [address] Fadia Grace MD 11/28/2024 Telephone [facility] [address], [place] [phone] Tiffany Kent MD February Recalls 11/28/2024 Travel 11/19/2024 Refill [facility] [address] [place] [address] Tiffany Kent MD Vitamin deficiency 11/10/2024 Orders Only GENERIC EXTERNAL DATA DEPARTMENT Provider, Generic External Data from Last 3 Months Immunizations Name Administration Dates Next Due Hep B, adult 07/22/2012,06/16/2011,05/18/2011 Influenza High-dose Quadriva lent Preservative Free 06/09/2023 Influenza Quadrivalent Adjuvanted 06/25/2020 Influenza injectable quadriv alent IIV4 with preservative 06/12/2015 Influenza injectable quadriv alent preservative free 08/03/2016 Influenza, High Dose Seasona l, Preservative Free 07/19/2024,07/20/2019,06/23/2017 Influenza, IIV3, injectable 05/31/2014, 1 Influenza, Split (incl. magalys fied surface antigen) 05/18/2012 Moderna Covid-19 Vaccine 12+ 09/04/2021,12/14/19 21,11/15/2020 Pneumococcal Conjugate PCV 13 04/22/2015 Pneumococcal Polysaccharide PPSV23 08/03,06/05/2014,02/07/2008,07/02,07/07/2002,07/18/1997 TD (adult), 2 Lf tetanus tox oid, preservative free, adsorbed 06/01/2006,04/20/1992 Tdap 09/03/2014 Zoster, Recombinant 04/20/2022,02/06/2022 Zoster, live 02/14/2014 Social History Tobacco Use Types Packs/Day Years Used Date Smoking Tobacco: Never Smokeless Tobacco: Never Tobacco Cessation:Counseling Given: Not Answered Alcohol Use Standard Drinks/Week Comments Never 0 (1 standard drink = 0.6 oz pur e alcohol) Alcohol Answer Date Recorded Frequency of Alcohol Consumption Not on file 07/19/2024 Average Number of Drinks Not on file 024 Frequency of Binge Drinking Not on file 06/22 Score 0 07/19/2024 Depression Answer Date Recorded Patient Health Questionnaire-9 Score 7 07/19/2024 Patient Health Questionnaire-9 Score 7 07/19/2024 Last PHQ-9: Questionnaire Data Not on file 1 Housing Stability Answer Date Recorded What is your housing situation today? I have edgar wolf 06/01/[address] you li ve. Do you have problems with any of the following? None of the above 06/01/2024 Food Insecurity Answer Date Recorded Within the past 12 months, y ou worried that your food would run out before you got money to buy more: Never True 06/01/2024 Within the past 12 months,th e food you bought just didn't last and you didn't have enough money to get more: Never True 08/2024 Transportation Answer Date Recorded In the past 12 months, has l ack of transportation kept you from medical appts, meetings, work or from getting things needed for daily living? No 06/01/2024 Utilities Answer Date Recorded In the past 12 months, has t he electric, gas, oil or water company threatened to shut off services in your home? No 06/01/2024 Depression Answer Date Recorded Patient Health Questionnaire-2 Score 4 07/19/2024 Internet Access Answer Date Recorded Internet Access Q1 Yes 06/01/2024 Internet Access Q2 Not on file 06/01/2024 Comments Unknown Sex and Gender Information Value Date Recorded Sex Assigned at Female 07/20/2022 10:15 AM EDT Legal Sex Female 10:15 AM EDT Gender Identity Female 07/20/2022 10:15 AM EDT Sexual Orientation Straight 07/20/2022 10 :15 AM EDT Last Filed Vital Signs Vital Sign Reading Time Taken Comments Blood Pressure 140/82 07/19/2024 2:16 PM EDT Pulse 62 07/19/2024 2:16 PM EDT Temperature 36.2 ??C (97.1 ??F) 07/19/2024 2:16 PM ED T Respiratory Rate 18 07/19/2024 2:16 PM EDT Oxygen Saturation 95% 07/19/2024 2:16 PM EDT Inhaled Oxygen Concentration - - Weight 50.8 kg (112 lb) 07/19/2024 2:16 PM EDT Height 149.9 cm (4' 11 ) 07/19/2024 2:16 PM EDT Body Mass Index 22.62 07/19/2024 2:16 PM EDT Plan of Treatment Upcoming Encounters Date Type Department Care Team (Late st Contact Info) Description 02/21/2025 10:15 AM EDT Office Visit [facility] [address] [place] [address] Tiffany Kent MD [address] [place] [address] Health Maintenance Due Date Last Done Comments RSV Patients and Patients Aged 60 years or older (1 - 1-dose 75+ series) 01/16/2020 DTaP/Tdap/Td Vaccines (2 - Td or Tdap) 09/03/2024 09/03/2014, 06/01/2006, 04/20/1992 Diabetes: Hemoglobin A1C 01/17/2025 024, 04/17/2024, 03/04/2023, Additional history exists Eye Exam 02/18/2025 02/18/2023 Diabetes: Urine Protein Screening 04/17/2025 04/17/2024, 03/04/2023, 12/18/2020 Lipid Panel 04/17/2025 04/17/2024, 02/18, 12/18/2020 SDOH Screening 06/01/2025 06/01/2024 Alcohol/Substance Use Screening 07/19/2025 07/19/2024 COVID-19 Vaccine ( season) 2025 09/04/2021, 12/13/2020, 11/15/2020 Postponed from 05/21/2024 (Patient Refused) Depression Screening 07/19/2025 07/19/2024, 07/19/20 Diabetes: Foot Exam 07/19/2025 07/19/2024, 07/19/2024, 07/19/2024 Tobacco Screening 07/19/2025 07/19/2024 Hepatitis B Vaccines Completed 07/22/2012, 06/16/2011, 05/18/2011 Pneumococcal Vaccine: 50+ Years Completed 08/03/2016, 04/22/2015, 06/05/2014, Additional history exists Zoster Vaccines Completed 04/20/2022, 01/19, 02/14/2014 Influenza Vaccine Completed 07/19/2024, , 06/25/2020, Additional history exists HIB Vaccines Aged Out No longer eligi ble based on patient's age to complete this topic HPV Vaccines Aged Out No longer eligi ble based on patient's age to complete this topic Hepatitis A Vaccines Aged Out No long er eligible based on patient's age to complete this topic IPV Vaccines Aged Out No longer eligi ble based on patient's age to complete this topic Meningococcal Vaccine Aged Out No gisella maxx eligible based on patient's age to complete this topic RSV under 20 months Aged Out No longe r eligible based on patient's age to complete this topic Rotavirus Vaccines Aged Out No longer eligible based on patient's age to complete this topic Procedures Procedure Name Priority Date/Time Associated Diagnosis Comments PTT ON HEPARIN Routine 11/10/2024 1:44 AM EST PROTHROMBIN TIME-INR Routine 11/10/2024 1:44 AM EST CBC Routine 11/10/2024 1:44 AM EST HIGH SENSITIVITY TROPONIN I Routine 11/10/2024 12:25 AM EST POCT GLYCATED HEMOGLOBIN, TOTAL Routine 07/19/2024 2:20 PM EDT Type 2 diabetes mellitus without complication, with long-term current use of insulin ([facility]) ALBUMIN, RANDOM URINE W/CREATININE Routine 04/17/2024 8:35 AM EDT Type 2 diabetes mellitus without complication, without long-term current use of insulin ([facility]) LIPID PANEL, STANDARD Routine 04/17/2024 8:35 AM EDT Type 2 diabetes mellitus without complication, without long-term current use of insulin ([facility]) DIABETES EYE EXAM Routine 02/18/2023 from Last 3 Months or Most Recently Relevant to Health Maintenance Results * (ABNORMAL) APTT on Heparin (11/10/2024 1:44 AM EST) PTT on Heparin 35.5(L) 53 - 77.9 [facility] Comment:For information rega rding the monitoring of heparin therapy,please refer to Pharmacy. 11/10/2024 1:44 AM EST 11/10/2024 1:46 AM EST us Generic External Data Provider LAB BLOOD ORDERAB LES Final Result Performing Organization Address City/State/[facility] Co de Phone Number [facility] [address] [place] [phone] * (ABNORMAL) Prothrombin Time-INR (11/10/2024 1:44 AM EST) Prothrombin Time 14.0(H) 10.9 - 12.4 SEC [facility] INTERNATIONAL NORM RATIO 1.2(H) 0.9 - 1.1 [facility] Comment:INTERNATIONAL NORMAL IZED RATIO (INR) REFERENCE RANGES Reference RangeFor patients not on anticoagulant therapy: 0.9 - 1.1INR ranges for oral anticoagulanttherapy:For prevention and treatment of venous thrombosis and pulmonary embolism: 2.0 - 3.0For acute myocardial infarction with aspirin therapy: 2.0 - 3.0For acute myocardial infarction without aspirin therapy: 3.0 - 4.0For patients with mechanical prosthetic heart valves: 2.5 - 3.5 11/10/2024 1:44 AM EST 11/10/2024 1:46 AM EST us Generic External Data Provider LAB BLOOD ORDERAB LES Final Result Performing Organization Address [facility] [place] [facility]/ZIP Co de Phone Number [facility] [address] [place] [phone] * CBC (11/10/2024 1:44 AM EST) White Blood Count 7.6 4.8 - 10.8 X10*3/uL [facility] Red Blood Count 4.39 4.20 - 5.50 X10*6/uL [facility] Hemoglobin 12.8 12.0 - 16.0 g/dl [facility] Hematocrit 38.6 37.0 - 47.0 % [facility] Mean Corpuscular Volume 87.9 80.0 - 98.0 fL [facility] Mean Corpuscular Hemoglobin 29.2 27.0 - 33.0 pg [facility] Mean Corpuscular HGB Conc 33.2 31.0 - 35.0 g/dl [facility] Red Cell Distribution Width 13.3 11.0 - 16.0 % [facility] Platelet Count 203 160 - 400 X10*3/uL [facility] Mean Platelet Volume 11.1 9.4 - 12.3 fL [facility] NRBC Pct Auto 0.0 0.0 - 0.2 /100WBC [facility] NRBC Abs Auto 0.000 0.0 - 0.012 X10*3/uL [facility] 11/10/2024 1:44 AM EST 11/10/2024 1:46 AM EST us Generic External Data Provider LAB BLOOD ORDERAB LES Final Result Performing Organization Address [facility] [place] [facility] Co de Phone Number [facility] [address] [place] [phone] * (ABNORMAL) High Sensitivity Troponin I (11/10/2024 12:25 AM EST) TROPONIN I HIGH SENSITIVITY 403.8(HH) <3.5 - 17.0 ng/L [facility] Comment:Critical value for t est(s): TROP Results called to and readback by:JACKELIN Person calling:VYASRID Date: [id number]: Edwards high sensitivity Troponin-I results should beused in conjunction with other diagnostic information suchas ECG, clinical observations and information, and patientsymptoms to aid in the diagnosis of UT. 11/10/2024 12:2 5 AM EST 11/10/2024 12:29 AM EST Generic External Data Provider LAB BLOOD ORDERAB LES Final Result [facility] [address] [place] [phone] * POCT HGB A1C (07/19/2024 2:20 PM EDT) Pathologist [facility] Hemoglobin A1C 5.9 4.0 - 6.0 % QC Media Lot # [id number] Lot# Expiration Date Blood 07/19/2024 2:20 PM EDT Tiffany Kent MD POINT OF CARE TEST ENTER/E DIT ORDERABLES Final Result * Albumin, Random Urine W/Creatinine (04/17/2024 8:35 AM EDT) Creatinine, Urine 111.68 mg/dL [facility] Microalbumin Urine 9.0 mg/L [facility] Microalbum Creatinine Ratio Ur 8.0 <30 ug/mg cr [facility] Comment:Albumin/Creatinine R atio Reference Ranges: Normal: < 30 ug/mg creatinine Microalbuminuria: 30 - 300 ug/mg creatinineClinical Albuminuria: > 300 ug/mg creatinine Urine 04/17/2024 8:35 AM EDT 04/17/2024 11:52 AM EDT Tiffany Kent MD LAB URINE ORDERABLES Final Result Performing Organization Address [facility] [place] [facility] Co de Phone Number [facility] [address] [place] [phone] * Lipid Panel, Standard (04/17/2024 8:35 AM EDT) Triglycerides 107 <150 mg/dL [facility] Comment:Desirable Triglyceri de: less than 150 mg/dLBorderline High Triglyceride 150-199 mg/dLHigh Triglyceride: 200-499 mg/dLVery High Triglyceride: greater than or equal to 5OO mg/dL Cholesterol 115 <200 mg/dL [facility] Comment:Desirable Cholestero l: less than 200 mg/dLBorderline High Cholesterol: 200-239 mg/dLHigh Cholesterol: greater than 239 mg/dL LDL Cholesterol Calculated 40 <100 mg/dL [facility] Comment:Desirable LDL: less than 100 mg/dLNear Optimal/Above Optimal LDL: 110- 129 mg/dLBorderline High LDL: 130-159 mg/dLHigh LDL: 160-189 mg/dLVery High LDL: greater than or equal to 190 mg/dL HDL Cholesterol 54 >40 mg/dL [facility] Comment:Desirable HDL: great er than 40 mg/dL Note: This HDL assay may give artificially low results in patients with liver disease. Blood Venous blood specimen / Unknown 04/17/2024 8:35 AM EDT 04/17/2024 11:37 AM EDT Tiffany Kent MD LAB BLOOD ORDERABLES Final Result Performing Organization Address [facility] [place] [facility]/ZIP Co de Phone Number [facility] [address] [place] [phone] * Diabetes Eye Exam (02/18/2023) Eye Exam Normal Normal Comment:Dr. 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
--- OUTSIDE RECORDS SUMMARY | 2025-01-16 19:51 | XMS_ITS | Encounter Summary ---
Author Organization [employer] Address [address] [place] [address] [address] [place] [address] Care Team Providers Care Fisher Terrapin Name Role Phone Tiffany Kent MD Primary Care Provider [phone] Cy Perdue MD Unavailable [phone] Encounter Details Date Type Department Care Team ([facility] Contact Info) Description 06/09/2023 Orders Only [facility] MEDICINE [address] [place] [phone] Tiffany Kent MD [address] [place] [address] [phone] Right-sided low back pain with right-sided sciatica, unspecified chronicity (Primary Dx); Pulmonary emphysema, unspecified emphysema type (CMS/HCC) Social History Tobacco Use Types Packs/Day Years Used Date Smoking Tobacco: Never Smokeless Tobacco: Never Alcohol Use Standard Drinks/Week Comments Never 0 (1 standard drink = 0.6 oz pur e alcohol) Depression Answer Date Recorded Patient Health Questionnaire-2 Score 0 09/24/2022 Comments Unknown Sex and Gender Information Value Date Recorded Sex Assigned at Female 07/20/2022 10:15 AM EDT Legal Sex Female 10:15 AM EDT Gender Identity Female 07/20/2022 10:15 AM EDT Sexual Orientation Straight 07/20/2022 10 :15 AM EDT documented as of this encounter Plan of Treatment Upcoming Encounters Date Type Department Care Team ([facility] Contact Info) Description 02/21/2025 10:15 AM EDT Office Visit [facility] MEDICINE [address] [place] [address] [phone] Tiffany Kent MD [address] [place] [address] documented as of this encounter Visit Diagnoses Diagnosis Right-sided low back pain with right-sided sciatica, unspecified chronicity- Primary Pulmonary emphysema, unspecified emphysema type (CMS/HCC) documented in this encounter Care Teams Fisher Terrapin Relationship Specialty Start Date End Date Tiffany Kent MD [address] [place] [address] PCP - General Family Medicine 09/27/13 Cy Perdue MD [address] [place] [address] Cardiology 12/12/24 documented as of this encounter
--- OUTSIDE RECORDS SUMMARY | 2025-01-16 19:51 | XMS_ITS | Encounter Summary ---
Author Organization [employer] Address [address] [facility] [address] [place] [address] Care Team Providers Care Aoc Director Combat Plans Officer Name Role Phone Tiffany Kent MD Primary Care Provider [phone] Cy Perdue MD Unavailable [phone] Reason for Visit * Reason Comments Med Refill Encounter Details Date Type Department Care Team ([facility] Contact Info) Description 09/10/2023 Refill [facility] MEDICINE [address] [place] [address] Tiffany Kent MD [address] [place] [address] Social History Tobacco Use Types Packs/Day Years Used Date Smoking Tobacco: Never Smokeless Tobacco: Never Alcohol Use Standard Drinks/Week Comments Never 0 (1 standard drink = 0.6 oz pur e alcohol) Housing Stability Answer Date Recorded What is your housing situation today? I have housing today, but I am worried about losing housing in the future 07/13/[address] you li ve. Do you have problems with any of the following? None of the above 07/13/2023 Food Insecurity Answer Date Recorded Within the past 12 months, y ou worried that your food would run out before you got money to buy more: Never True 07/13/2023 Within the past 12 months,th e food you bought just didn't last and you didn't have enough money to get more: Never True Transportation Answer Date Recorded In the past 12 months, has l ack of transportation kept you from medical appts, meetings, work or from getting things needed for daily living? No 07/13/2023 Utilities Answer Date Recorded In the past 12 months, has t he electric, gas, oil or water company threatened to shut off services in your home? No 07/13/2023 Depression Answer Date Recorded Patient Health Questionnaire-2 [...] 10:15 AM EDT Office Visit [facility] MEDICINE [address] [place] [phone] Tiffany Kent MD [address] [place] [address] documented as of this encounter Visit Diagnoses Not on filedocumented in this encounter Care Teams Aoc Director Combat Plans Officer Relationship Specialty Start Date End Date Tiffany Kent MD [address] [place] [phone] PCP - General Family Medicine 09/27/13 Cy Perdue MD [address] [place] [address] Cardiology 12/12/24 documented as of this encounter
--- OUTSIDE RECORDS SUMMARY | 2025-01-16 19:51 | XMS_ITS | Encounter Summary ---
Author Organization [employer] Address [address] [facility] [address] [place] [address] Care Team Providers Care Ditch Worker Name Role Phone Tiffany Kent MD Primary Care Provider [phone] Cy Perdue MD Unavailable [phone] Reason for Visit * Reason Comments Med Refill Encounter Details Date Type Department Care Team ([facility] Contact Info) Description 2025 Refill [facility] MEDICINE [address] [place] [address] Tiffany Kent MD [address] [place] [address] Mild intermittent asthma without complication Social History Tobacco Use Types Packs/Day Years [...] Description 02/21/2025 10:15 AM EDT Office Visit [facility] MEDICINE [address] [place] [phone] Tiffany Kent MD [address] [place] [address] documented as of this encounter Visit Diagnoses Diagnosis Mild intermittent asthma without complication documented in this encounter Additional Health Concerns Assessment Noted Time PHQ-9 Depression Total Score: 7 07/19/20 24 2:50 PM EDT documented as of this encounter Care Teams Ditch Worker Relationship Specialty Start Date End Date Tiffany Kent MD [address] [place] [address] PCP - General Family Medicine 09/27/13 Cy Perdue MD [address] [place] [address] Cardiology 12/12/24 documented as of this encounter
--- OUTSIDE RECORDS SUMMARY | 2025-01-16 19:51 | XMS_ITS ---
Author Name [employer] Organization Unknown Results Test Name/Text Value Interpretation Date Range Source LMWH PPP Football Pad Repairer-aCnc 0.44IU/mL Normal [id number] [facility] Anticoagulant IV HEPARIN, UNFRACTIONATED Normal [id number] [facility] Potassium SerPl-sCnc 5.1mmol/L Normal [id number] 3.4 - 5.3 [facility] CO2 SerPl-sCnc 20mmol/L Below low normal [id number] 22 - 33 [facility] BUN SerPl-mCnc 26mg/dL Above high normal [id number] 8 - 21 [facility] GFR/BSA.pred SerPlBld [id number] 57 Below low normal [id number] 59 - [facility] BUN/Creat SerPl 26Ratio Above high normal [id number] 10 - 25 [facility] Sodium SerPl-sCnc 140mmol/L Normal [id number] 136 - 145 [facility] Creat SerPl-mCnc 1mg/dL Normal [id number] 0.4 - 1.1 [facility] Anion Gap Bld-sCnc 11 Normal [id number] 7 - 17 [facility] Glucose SerPl-mCnc 111mg/dL Above high normal [id number] 65 - 99 [facility] Calcium SerPl-mCnc 9.1mg/dL Normal [id number] 8.7 - 10 .5 [facility] Chloride SerPl-sCnc 109mmol/L Above high normal [id number] 98 - 107 [facility] Troponin T SerPl-mCnc 274ng/L Critically high [id number] - 15 [facility] Delta Normal [id number] - 3 [facility] Magnesium SerPl-mCnc 2.2mg/dL Normal [id number] 1.6 - 2.7 [facility] Lymphocytes/leuk NFr Bld Auto 40.3% Normal [id number] [facility] Imm Granulocytes num Bld Auto 0.02Thou/uL Normal [id number] 0 - 0.1 [facility] Lymphocytes num Bld Auto 2.19Thou/uL Normal [id number] 1.5 - 4.5 [facility] Neutrophils/leuk NFr Bld Auto 39.4% Normal [id number] [facility] Eosinophil num Bld Auto 0.34Thou/uL Normal [id number] 0 - 0.7 [facility] Basophils num Bld Auto 0.04Thou/uL Normal [id number] 0 - 0.2 [facility] MCHC RBC Auto-mCnc 31.9g/dL Normal [id number] 30 - 36 [facility] Hct VFr Bld Auto 38.9% Normal [id number] 35 - 47 [facility] Eosinophil/leuk NFr Bld Auto 6.3% Normal [id number] [facility] Neutrophils num Bld Auto 2.14Thou/uL Normal [id number] 2 - 7.5 [facility] MCV RBC Auto 89fL Normal [id number] 80 - 100 [facility] T Platelet num Bld Auto 191Thou/uL Normal [id number] 150 - 450 [facility] WBC num Bld Auto 5.4Thou/uL Normal [id number] 4 - 11 [facility] Imm Granulocytes/leuk NFr Bld Auto 0.4% Normal [id number] [facility] Basophils/leuk NFr Bld Auto 0.7% Normal [id number] [facility] Hgb Bld-mCnc 12.4g/dL Normal [id number] 11.7 - 15.7 [facility] Monocytes/leuk NFr Bld Auto 12.9% Normal [id number] [facility] Monocytes num Bld Auto 0.7Thou/uL Normal [id number] 0.2 - 1.5 [facility] RDW RBC Auto-Rto 13.6% Normal [id number] 11.5 - 14.5 [facility] MCH RBC Qn Auto 28.4pg Normal [id number] 27 - 31 H [facility] RBC num Bld Auto 4.36Mil/uL Normal [id number] 4 - 5.4 [facility] PMV Bld Auto 11.2fL Normal [id number] 7.5 - 12.[address] LMWH PPP Football Pad Repairer-aCnc 0.44IU/mL Normal [id number] [facility] Anticoagulant IV HEPARIN, UNFRACTIONATED Normal [id number] [facility] LMWH PPP Football Pad Repairer-aCnc 0.26IU/mL Normal [id number] [facility] Anticoagulant IV HEPARIN, UNFRACTIONATED Normal [id number] [facility] LMWH PPP Football Pad Repairer-aCnc 0.28IU/mL Normal [id number] [facility] Anticoagulant IV HEPARIN, UNFRACTIONATED Normal [id number] [facility] Potassium SerPl-sCnc 4.2mmol/L Normal [id number] 3.4 - 5.3 [facility] CO2 SerPl-sCnc 24mmol/L Normal [id number] 22 - 33 HH CCT BUN/Creat SerPl 20Ratio Normal [id number] 10 - 25 H HCCT Calcium SerPl-mCnc 9.2mg/dL Normal [id number] 8.7 - 10 .5 [facility] Sodium SerPl-sCnc 142mmol/L Normal [id number] 136 - 145 [facility]CT BUN SerPl-mCnc 18mg/dL Normal [id number] 8 - 21 HH CCT Glucose SerPl-mCnc 99mg/dL Normal 65 - 99 [facility]CT Creat SerPl-mCnc 0.9mg/dL Normal [id number] 0.4 - 1.1 [facility]CT Chloride SerPl-sCnc 108mmol/L Above high normal [id number] 98 - 107 [facility] Anion Gap Bld-sCnc 10 Normal [id number] 7 - 17 [facility]CT GFR/BSA.pred SerPlBld VAB-[id number] 65 Normal [id number] 59 - HHCCT Magnesium SerPl-mCnc 2.3mg/dL Normal [id number] 1.6 - 2.7 H[facility]CT LMWH PPP Football Pad Repairer-aCnc 0.27IU/mL Normal [id number] [facility]CT Anticoagulant IV HEPARIN, UNFRACTIONATED Normal [id number] [facility] Imm Granulocytes num Bld Auto 0.01Thou/uL Normal [id number] 0 - 0.1 [facility] Lymphocytes/leuk NFr Bld Auto 41.9% Normal [id number] H[facility]CT RDW RBC Auto-Rto 13.4% Normal [id number] 11.5 - 14.5 [facility]CT Neutrophils num Bld Auto 1.58Thou/uL Below low normal [id number] 2 - 7.5 [facility] Neutrophils/leuk NFr Bld Auto 39% Normal [id number] H[facility]CT MCHC RBC Auto-mCnc 31.9g/dL Normal [id number] 30 - 36 H[facility] Hct VFr Bld Auto 42.7% Normal [id number] 35 - 47 [facility]CT Hgb Bld-mCnc 13.6g/dL Normal [id number] 11.7 - 15.7 [facility] Imm Granulocytes/leuk NFr Bld Auto 0.2% Normal [id number] [facility] RBC num Bld Auto 4.75Mil/uL Normal [id number] 4 - 5.4 [facility] Basophils/leuk NFr Bld Auto 0.7% Normal [id number] [facility] Eosinophil/leuk NFr Bld Auto 3.2% Normal [id number] [facility] Basophils num Bld Auto 0.03Thou/uL Normal [id number] 0 - 0.2 [facility] Monocytes/leuk NFr Bld Auto 15% Normal [id number] [facility]CT MCH RBC Qn Auto 28.6pg Normal [id number] 27 - 31 H HCCT PMV Bld Auto 11.4fL Normal [id number] 7.5 - 12.[address] Eosinophil num Bld Auto 0.13Thou/uL Normal [id number] 0 - 0.7 [facility] Platelet num Bld Auto 215Thou/uL Normal [id number] 150 - 450 [facility]CT MCV RBC Auto 90fL Normal [id number] 80 - 100 HHCC T WBC num Bld Auto 4.1Thou/uL Normal [id number] 4 - 11 [facility] Monocytes num Bld Auto 0.61Thou/uL Normal [id number] 0.2 - 1.5 [facility]CT Lymphocytes num Bld Auto 1.7Thou/uL Normal [id number] 1.5 - 4.5 [facility]CT LMWH PPP Football Pad Repairer-aCnc 0.4IU/mL Normal [id number] [facility] Anticoagulant IV HEPARIN, UNFRACTIONATED Normal [id number] H[facility]CT Delta 180 Above high normal - HHCCT Troponin T SerPl-mCnc 327ng/L Critically high - 15 H[facility]CT LMWH PPP Football Pad Repairer-aCnc 0.74IU/mL Normal [id number] H[facility]CT Anticoagulant IV HEPARIN, UNFRACTIONATED Normal [id number] [facility] Delta 39 Above high normal [id number] - HHCCT Troponin T SerPl-mCnc 186ng/L Critically high HHCCT Troponin T SerPl-mCnc 139ng/L Critically high HHCCT Delta 8 Above high normal - HHCCT GFR/BSA.pred SerPlBld QAE-NWD-YtIDlr 75 Normal [id number] 59 - HHCCT Chloride SerPl-sCnc 105mmol/L Normal [id number] 98 - 107 H[facility]CT Creat SerPl-mCnc 0.8mg/dL Normal [id number] 0.4 - 1.1 H[facility]CT BUN/Creat SerPl 23Ratio Normal [id number] 10 - 25 H HCCT AST SerPl-cCnc 32U/L Normal [id number] 10 - 50 HH CCT ALP SerPl-cCnc 117U/L Normal [id number] 32 - 122 HH CCT CO2 SerPl-sCnc 25mmol/L Normal [id number] 22 - 33 HH CCT Bilirub SerPl-mCnc 0.5mg/dL Normal [id number] 0.2 - 1 H[facility]CT ALT SerPl-cCnc 23U/L Normal [id number] 10 - 50 HH CCT BUN SerPl-mCnc 18mg/dL Normal [id number] 8 - 21 HH CCT Globulin Ser Calc-mCnc 2.6g/dL Normal [id number] 1.5 - 3.9 [facility] Anion Gap Bld-sCnc 9 Normal [id number] 7 - 17 [facility]CT Calcium SerPl-mCnc 8.8mg/dL Normal [id number] 8.7 - 10 .5 H[facility]CT Prot SerPl-mCnc 6.2g/dL Below low normal [id number] 6.3 - 8.3 [facility]CT Glucose SerPl-mCnc 98mg/dL Normal [id number] 65 - 99 [facility]CT Albumin SerPl-mCnc 3.6g/dL Normal [id number] 3.4 - 4. 8 [facility]CT Sodium SerPl-sCnc 139mmol/L Normal [id number] 136 - 145 [facility]CT Albumin/Glob SerPl 1.4Ratio Normal [id number] 1 - 3 [facility]CT Potassium SerPl-sCnc 4.1mmol/L Normal [id number] 3.4 - 5.3 [facility] Delta Normal [id number] - 3 [facility]CT Troponin T SerPl-mCnc 147ng/L Critically high [id number] - 15 [facility]CT LMWH PPP Football Pad Repairer-aCnc 1.45IU/mL Normal [id number] [facility] Anticoagulant Normal [id number] [facility] INR PPP 1.2 Normal [id number] [facility] Prothrombin time 14.4seconds Above high normal [id number] 10 - 13.5 [facility] Anticoagulant IV HEPARIN, UNFRACTIONATED Normal [id number] [facility] aPTT PPP 136seconds Critically high [id number] 25 - 36 [facility] Anticoagulant IV HEPARIN, UNFRACTIONATED Normal [id number] [facility]CT RDW RBC Auto-Rto 13.3% Normal [id number] 11.5 - 14.5 [facility] Imm Granulocytes/leuk NFr Bld Auto 0.2% Normal [id number] [facility] Monocytes/leuk NFr Bld Auto 10.3% Normal [id number] H[facility]CT WBC num Bld Auto 6.5Thou/uL Normal [id number] 4 - 11 [facility] Hgb Bld-mCnc 12.6g/dL Normal [id number] 11.7 - 15.7 [facility]CT Lymphocytes num Bld Auto 2.48Thou/uL Normal [id number] 1.5 - 4.5 [facility]CT Eosinophil/leuk NFr Bld Auto 2.1% Normal [id number] H[facility]CT Hct VFr Bld Auto 39.4% Normal [id number] 35 - 47 [facility] RBC num Bld Auto 4.39Mil/uL Normal [id number] 4 - 5.4 H[facility]CT MCH RBC Qn Auto 28.7pg Normal [id number] 27 - 31 H HCCT Basophils/leuk NFr Bld Auto 0.5% Normal [id number] [facility] Neutrophils num Bld Auto 3.2Thou/uL Normal [id number] 2 - 7.5 [facility]CT Basophils num Bld Auto 0.03Thou/uL Normal [id number] 0 - 0.2 H[facility]CT PMV Bld Auto 11.3fL Normal [id number] 7.5 - 12.[address] MCHC RBC Auto-mCnc 32g/dL Normal [id number] 30 - 36 [facility] Monocytes num Bld Auto 0.67Thou/uL Normal [id number] 0.2 - 1.5 [facility] Imm Granulocytes num Bld Auto 0.01Thou/uL Normal [id number] 0 - 0.1 [facility]CT Eosinophil num Bld Auto 0.14Thou/uL Normal [id number] 0 - 0.7 [facility] Neutrophils/leuk NFr Bld Auto 48.9% Normal [id number] [facility] Platelet num Bld Auto 202Thou/uL Normal [id number] 150 - 450 [facility] MCV RBC Auto 90fL Normal [id number] 80 - 100 HH[facility] T Lymphocytes/leuk NFr Bld Auto 38% Normal [id number] [facility] Encounters Encounter Type Encounter Reason Primary Diagnosis Location Date Inpatient Chest pain, unspecified Chest pain, unspecified [facility] 11/10/2024 Care Team Organization Name Specialty Phone Email Start Date End Da angle [facility] 11/29/2024 12/18/2024 [facility] 11/10/2024 [facility] RINA ANNE Primary Care 11/10/2024
--- OUTSIDE RECORDS SUMMARY | 2025-01-16 19:51 | XMS_ITS | Clinical Summary ---
Author Organization Formerly [facility] Address [address] [place] [address] Care Team Providers Care Manager Study Name Role Phone Tiffany Kent MD Primary Care Provider [phone] Allergies No known active allergies Medications aspirin 81 MG chewable tabletIndication s:Chest pain,Depressive disorder Chew 1 tablet (81 mg total) daily. 30 tablet 3 11/13/2024 03/13/20 25 Active isosorbide mononitrate (IMDUR) 60 MG 24 hr tabletIndication s:Chest pain,Depressive disorder Take 1 tablet (60 mg total) by mouth daily. 30 tablet 1 11/13/2024 Active metoPROLOL SUCCINATE (TOPROL-XL) 25 MG 24 hr tabletIndication s:Chest pain,Depressive disorder Take 1 tablet (25 mg total) by mouth daily. 30 tablet 11/13/2024 Active sertraline (ZOLOFT) 25 MG tabletIndication s:Chest pain,Depressive disorder Take 5 tablets (125 mg total) by mouth daily. 150 tablet 11/13/2024 Active traZODone (DESYREL) 100 MG tabletIndication s:Chest pain,Depressive disorder Take 1 tablet (100 mg total) by mouth nightly. 30 tablet 11/12/2024 Active atorvastatin (LIPITOR) 80 MG tabletIndication s:Chest pain,Depressive disorder Take 1 tablet (80 mg total) by mouth nightly. 90 tablet 3 11/12/2024 11/07/19 26 Active apixaban (ELIQUIS) 5 MG tabletIndication s:Chest pain,Depressive disorder Take 1 tablet (5 mg total) by mouth every 12 (twelve) hours around the clock. 60 tablet 11/12/2024 Active Active Problems Problem Noted Date Diagnosed Date NSTEMI (non-ST elevated myocardial infarction) 0 11/10/2024 Dementia 03/03/2022 Overview (11/10/2024): Per daughter, pt's short-term memory has worsened [...] OF PROLONGED Qt IN SETTING OF TRAZODONE Depressive disorder 05/18/2012 Overview (11/10/2024): -sertraline initially prescribed by psychiatry, decreased to 100mg daily during hospitalization for chest pain 08/2022 Encounters Date Type Department Care Team Description 11/10/2024 4:30 AM EST Ancillary Procedure [facility] Emergency Department [address] [place] [address] Pj Byers III, DO 11/10/2024 3:55 AM EST - 11/12/2024 3:22 PM EST Hospital Encounter [place] [id number] [address] [place] [address] Pj Byers III, DO Carey, Christopher W, MD Karna, Bibek, MD Elajami, Mohamad, MD Bell, Alistair, MD Singh, Gagan, MD Chest pain (Primary Dx); Depressive disorder Discharge Disposition: Home or Self Care 11/10/2024 Travel from Last 3 Months Social History Tobacco Use Types Packs/Day Years Used Date Smoking Tobacco: Never Smokeless Tobacco: Never Tobacco Cessation:Counseling Given: Not Answered [facility] Utilities Answer Date Recorded In the past 12 months has [employer], gas, oil, or water [employer] threatened to shut off services in your home? No 11/11/2024 AUDIT-C Answer Date Recorded Q1: How often do you have a drink containing alcohol? Never 11/10/2024 Q2: How many drinks containi ng alcohol do you have on a typical day when you are drinking? Patient does not drink Q3: How often do you have si x or more drinks on one occasion? Never 11/10/2024 Hunger Vital Sign Answer Date Recorded Within the past 12 months, y ou worried that your food would run out before you got the money to buy more. Never true 11/11/19 25 Within the past 12 months, t he food you bought just didn't last and you didn't have money to get more. Never true 11/11/2024 PRAPARE - Transportation Answer Date Re corded In the past 12 months, has l ack of transportation kept you from medical appointments or from getting medications? No 10/22 In the past 12 months, has l ack of transportation kept you from meetings, work, or from getting things needed for daily living? No 11/11/2024 Housing Stability Vital Sign Answer Patrick e Recorded In the last 12 months, was t here a time when you were not able to pay the mortgage or rent on time? No 11/11/2024 In the past 12 months, how m any times have you moved where you were living? 1 11/11/2024 At any time in the past 12 m [facility], were you homeless or living in a fci (including now)? No 11/11/2024 Comments Unknown Sex and Gender Information Value Date Recorded Sex Assigned at Female 11/10/2024 3:53 AM EST Legal Sex Female 1:54 AM EST Gender Identity Female 11/10/2024 3:53 AM EST Sexual Orientation Heterosexual (straight) 11/10 3:53 AM EST Last Filed Vital Signs Vital Sign Reading Time Taken Comments Blood Pressure 130/69 11/12/2024 8:20 AM EST Pulse 73 11/12/2024 8:20 AM EST Temperature 36.2 ??C (97.2 ??F) 11/12/2024 7:50 AM ES T Respiratory Rate 18 11/12/2024 7:50 AM EST Oxygen Saturation 96% 11/12/2024 7:50 AM EST Inhaled Oxygen Concentration - - Weight 53 kg (116 lb 13.5 oz) 11/11/2024 6:14 AM EST Height - - Body Mass Index - - Plan of Treatment Health Maintenance Due Date Last Done Comments Hepatitis C Virus Screening 1945 DTaP/Tdap/Td Vaccines (1 - Tdap) 01/16/1964 Pneumococcal Vaccines 50+ (1 of 2 - PCV) 01/16/1964 Zoster (Shingles) Vaccine (1 of 2) 1995 DXA Bone Density (Females,Ages 65 and older) 2010 RSV Vaccine 60 years and older and Patients (1 - 1-dose 75+ series) 01/16/2020 COVID-19 Vaccine ( - season) 2024 09/04/2021, 12/13/2020, 11/15/2020 Influenza Vaccine Completed 07/19/2024, , 06/25/2020, Additional history exists Hepatitis B Vaccines Aged Out No long er eligible based on patient's age to complete this topic Procedures Procedure Name Priority Date/Time Associated Diagnosis Comments LEARNER CARDIAC POC ULTRASOUND Routine 11/14/2024 10:58 AM EST ECHOCARDIOGRAM (TTE) COMPREHENSIVE (CONTRAST PRN) Routine 11/12/2024 12:15 PM EST HEPARIN ASSAY (ANTI-XA) Routine 11/12/19 11:06 AM EST HIGH SENSITIVITY TROPONIN T Routine 11/12/2024 7:44 AM EST MAGNESIUM Routine 11/12/2024 7:44 AM EST BASIC METABOLIC PANEL Routine 11/12/2024 7:44 AM EST COMPLETE BLOOD COUNT, WITH DIFFERENTIAL Routine 11/12/2024 4:08 AM EST HEPARIN ASSAY (ANTI-XA) Routine 11/12/19 2:24 AM EST HEPARIN ASSAY (ANTI-XA) Routine 11/11/19 6:58 PM EST HEPARIN ASSAY (ANTI-XA) Routine 11/11/19 1:06 PM EST HEPARIN ASSAY (ANTI-XA) Routine 11/11/19 6:52 AM EST BASIC METABOLIC PANEL Routine 11/11/2024 6:52 AM EST COMPLETE BLOOD COUNT, WITH DIFFERENTIAL Routine 11/11/2024 6:52 AM EST MAGNESIUM Routine 11/11/2024 6:52 AM EST HEPARIN ASSAY (ANTI-XA) Routine 11/10/19 11:58 PM EST HIGH SENSITIVITY TROPONIN T CARD 11/10/2024 6:50 PM EST HEPARIN ASSAY (ANTI-XA) STAT 11/10/19 2:51 PM EST HIGH SENSITIVITY TROPONIN T CARD 11/10/2024 1:15 PM EST HIGH SENSITIVITY TROPONIN T Routine 11/10/2024 7:31 AM EST HEPARIN ASSAY (ANTI-XA) STAT 11/10/19 6:05 AM EST PARTIAL THROMBOPLASTIN TIME (PTT) STAT 11/10/2024 6:05 AM EST PROTIME-INR STAT 11/10/2024 6:05 AM EST HIGH SENSITIVITY TROPONIN T CARD 11/10/2024 6:05 AM EST COMPREHENSIVE METABOLIC PANEL STAT 11/10/2024 6:05 AM EST COMPLETE BLOOD COUNT, WITH DIFFERENTIAL STAT 11/10/2024 6:05 AM EST ECG 12-LEAD STAT 11/10/2024 4:38 AM EST from Last 3 Months Results * LEARNER CARDIAC POC ULTRASOUND (11/14/2024 10:58 AM EST) Anatomical Region Laterality Modality Ultrasound Narrative 11/14/2024 10:58 AM EST *Educational Purposes Only* No obvious sign of Takotsubo CM. No significant effusion. No focal wall motion abnormality. us Suman Izaguirre MD Vahe US ORDERABLES Final Result * ECHOCARDIOGRAM COMPREHENSIVE (11/12/2024 12:15 PM EST) LV Diastolic Volume 57 mL LV Systolic Volume 21 mL IVS (F:0.6-0.9, M:0.6-1.0) 0.9 cm IVS Mean (F:0.6-0.9, M:0.6-1.0) 0.9 cm LVIDD (F:3.8-5.2, M:4.2-5.8) 4.2 cm LVIDD Mean (F:3.8-5.2, M:4.2-5.8) 4.2 cm LVIDS (F:2.2-3.5, M:2.5-4.0) 2.8 cm LVIDS (F:2.2-3.5, M:2.5-4.0) 2.0 cm LVOT diameter 1.7 cm LVOT diameter mean 1.7 cm LVOT mn grad mean 2.0 mmHg LVOT VTI MEAN 17.5 cm LVOT mn grad 2.0 mmHg LVOT VTI 17.5 cm LVOT peak sebas 0.9 m/s LVOT peak sebas mean 0.9 m/s PW (F:0.6-0.9, M:0.6-1.0) 0.8 cm PW Mean (F:0.6-0.9, M:0.6-1.0) 0.8 cm MV E' Lateral Velocity 5.22 cm/s MV E' Lateral Velocity Mean 5.22 cm/s MV E' Septal Velocity 5.66 cm/s MV E' Septal Velocity Mean 5.66 cm/s LA sup-inf (apical 2-ch view) 4.45 cm LA volume 33.6 mL AV mean gradient 3.0 mmHg Ao VTI 24.1 cm Ao peak sebas 1.2 m/s Ao peak sebas mean 1.2 m/s Sinuses of Valsalva 2.8 cm Sinuses of Valsalva Mean 2.8 cm Ascending aorta 2.9 cm Ascending aorta mean 2.9 cm E wave decelartion time 256 ms E wave decelartion time mean 256 ms MV Peak A-Wave 112.0 cm/s MV Peak A-Wave Mean 112.0 cm/s MV Peak E-Wave 46.5 cm/s MV Peak E-Wave Mean 46.5 cm/s RV Free wall pk S' 13.4 cm/s RV Free wall pk S' Mean 13.4 cm/s TR Peak Sebas 2.2 m/s Heart Rate 73 bpm BP Systolic 130 mmHg BP Diastolic 69 mmHg Height 53.00 inches Weight 116.00 lbs LV Mass Index (F:43-95, M:49-115) 81.2 g/m2 LA Volume Index (16-34) 24.8 mL/m2 LV Diastolic Volume Index (F:29-61, M:35-75) 42.1 mL/m2 LV Systolic Volume Index (F:8-24, M:11-31) 15.5 mL/m2 E/E' ratio 8.91 AV peak gradient 5.8 mmHg LVOT stroke volume 40 mL LVOT area 2.3 cm2 E/A ratio 0.42 AV LVOT peak gradient 3.2 mmHg Dimensionless Index 0.73 SVI 28 mL/m2 AV area by cont VTI 1.6 cm2 Ascending aorta Index 2.1 cm/m2 Sinuses of Valsalva Index 2.1 cm/m2 Valve area - Index 1.2 cm2/m2 LV mass 109.8 g Rm BP EF (55-75) 63 % E/E' Average 8.6 E/E' Septal 8.2 E/E' Lateral 8.9 LVOT SI 29.33 mL/m2 LV RWT 0.38 Left Ventricular Cardiac Index 2.1 L/min/m2 Left Ventricular Cardiac Output 2.9 L/min BSA 1.35 m2 TR Peak Gradient 19 mmHg Est. RA pres 3 mmHg RVSP 22 mmHg PASP 22.4 mmHg Anatomical Region Laterality Modality Ultrasound Narrative 11/12/2024 1:17 PM EST ?Left ventricular systolic function is normal. The quantitative EF by 2D Rm biplane is 63%. ?Right ventricular systolic function is normal. ?There are no hemodynamically significant valvular abnormalities noted. ?There is no previous study for comparison in our system. Technical Details Overall the study quality was adequate. Left Ventricle The left ventricle is normal in size. Wall thickness is normal. Left ventricular systolic function is normal. The quantitative EF by 2D Rm biplane is 63%. No wall motion abnormalities are present. Diastolic function is normal. Cardiac output is decreased. The Doppler derived cardiac output is 2.9 L/min and cardiac index is 2.1 L/min/m2. Right Ventricle The right ventricle is normal in size. Right ventricular systolic function is normal. Left Atrium Left atrial size is normal. Right Atrium Right atrial size is normal. Based on IVC diameter and collapse, right atrial pressure is estimated to be normal (3 mmHg). Mitral Valve The mitral leaflets are mildly thickened. There is no mitral regurgitation or stenosis. Tricuspid Valve The tricuspid valve is structurally normal. There is mild tricuspid regurgitation. The estimated right ventricular systolic pressure is normal at 22 mmHg. Aortic Valve The aortic valve is tricuspid. The aortic valve leaflets are mildly thickened.There is mild aortic regurgitation. There is no aortic valve stenosis. Pulmonic Valve The pulmonic valve is structurally normal. There is no pulmonic regurgitation. Ascending Aorta The aortic root and ascending aorta are normal in dimension. Pericardium There is no pericardial effusion. Prior Study There is no previous study for comparison in our system. Suman Izaguirre MD CV ECHO ORDERABLES Final Result * Heparin Assay (Anti Xa) (11/12/2024 11:06 AM EST) Only the most recent of8 resultswithin the time period is included. Anti Xa 0.44 IU/mL 11/12/2024 11:46 AM EST [facility] Comment: (NOTE) Heparin Thromboembolic/Standard/Full Dose Protocol: Therapeutic Range: ? Age 18+: ? 0.30 - 0.70 IU/mL ? Age 0 - 17: ?? 0.35 - 0.70 IU/mL ? Heparin Cardiac/Low Dose Protocol: ? Therapeutic Range: ? 0.30 - 0.50 IU/mL ? Low Molecular Weight Heparin: ? Therapeutic Range: ? Age 18+: ?? 0.50 - 1.09 IU/mL for twice daily dosing (or adjusted to daily for poor renal function) ? Age 18+: ?? 1.00 - 2.00 ??IU/mL for once daily dosing ? Age 0-17: ??0.50 - 1.00 IU/mL Anticoagulant IV HEPARIN, UNFRACTIONATED 11/12/2024 10:58 AM EST [facility] Blood Plasma specimen / Unknown 11/12/2024 11:06 AM EST 11/12/2024 11:24 AM EST us Jamaal Damonmi MD LAB BLOOD ORDERABLES Final Re sult Performing Organization Address City/[facility]/ZIP Co de Phone Number [address] [address], [address] [address] * (ABNORMAL) High Sensitivity Troponin T (11/12/2024 7:44 AM EST) Only the most recent of5 resultswithin the time period is included. Pathologist [facility] High Sensitivity Troponin T 274(HH) <15 ng/L 11/12/2024 8:48 AM EST [facility] Delta (Change) NO PREVIOUS RESULT <3 11/12/2024 8:48 AM EST [facility] Plasma/Serum 11/12/2024 7:44 AM EST 11/12/2024 8:05 AM EST us Ruel Levi MD LAB BLOOD ORDERABLES Final Resu lt Performing Organization Address [facility] Co de Phone Number [address] [address], [address] [address] * MAGNESIUM (11/12/2024 7:44 AM EST) Only the most recent of2 resultswithin the time period is included. Pathologist [facility] Magnesium 2.2 1.6 - 2.7 mg/dL 11/12/2024 8:48 AM EST [facility] Blood (Plasma/Serum) 11/12/2024 7:44 AM EST 11/12/2024 8:05 AM EST us Ruel Levi MD LAB BLOOD ORDERABLES Final Resu lt Performing Organization Address City/[facility]/ZIP Co de Phone Number [address] [address], [address] [address] * (ABNORMAL) BASIC METABOLIC PANEL (11/12/2024 7:44 AM EST) Only the most recent of2 resultswithin the time period is included. Pathologist [facility] Glucose 111(H) 65 - 99 mg/dL 11/12/2024 8:48 AM [facility] Comment:Fasting: <100 mg/dL, Non-Fasting: <200 mg/dL (ADA 2004) Blood Urea Nitrogen (BUN) 26(H) 8 - 21 mg/dL 11/12/2024 8:48 AM [facility] Creatinine 1.0 0.4 - 1.1 mg/dL 11/12/2024 8:48 AM [facility] eGFR 57(L) >59 11/12/2024 8:48 AM [facility] Comment:CKD-EPI (2020) in mL /min/1.73 sq meters. Sodium 140 136 - 145 mmol/L 11/12/2024 8:48 AM [facility] Potassium 5.1 3.4 - 5.3 mmol/L 11/12/2024 8:48 AM [facility] Comment:Specimen hemolyzed. Results may be artifactually elevated. Chloride 109(H) 98 - 107 mmol/L 11/12/2024 8:48 AM [facility] CO2 20(L) 22 - 33 mmol/L 11/12/2024 8:48 AM [facility] Anion Gap 11 7 - 17 11/12/2024 8:48 AM [facility] Calcium 9.1 8.7 - 10.5 mg/dL 11/12/2024 8:48 AM [facility] BUN/Creatinine Ratio 26(H) 10.0 - 25.0 Ratio 11/12/2024 8:48 AM [facility] Blood (Plasma/Serum) 11/12/2024 7:44 AM EST 11/12/2024 8:05 AM EST us Ruel Levi MD LAB BLOOD ORDERABLES Final Resu lt [address] [address], [address] [address] * Complete Blood Count, with Differential (11/12/2024 4:08 AM EST) Only the most recent of3 resultswithin the time period is included. White Blood Cell Count 5.4 4.0 - 11.0 Thou/uL 11/12/2024 4:36 AM [facility] Platelet Count 191 150 - 450 Thou/uL 11/12/2024 4:36 AM [facility] Hemoglobin 12.4 11.7 - 15.7 g/dL 11/12/2024 4:36 AM [facility] Hematocrit 38.9 35.0 - 47.0 % 11/12/2024 4:36 AM [facility] Red Blood Cell Count 4.36 4.00 - 5.40 Mil/uL 11/12/2024 4:36 AM [facility] MCV 89 80 - 100 fL 11/12/2024 4:36 AM [facility] MCH 28.4 27.0 - 31.0 pg 11/12/2024 4:36 AM [facility] MCHC 31.9 30.0 - 36.0 g/dL 11/12/2024 4:36 AM [facility] RDW 13.6 11.5 - 14.5 % 11/12/2024 4:36 AM [facility] MPV 11.2 7.5 - 12.5 fL 11/12/2024 4:36 AM [facility] Neutrophils Auto 39.4 % 11/12/19 4:36 AM [facility] Immature Granulocytes 0.4 % 11/12/2024 4:36 AM [facility] Lymphocytes Auto 40.3 % 11/12/19 4:36 AM [facility] Monocytes Auto 12.9 % 11/12/2024 4:36 AM [facility] Eosinophils Auto 6.3 % 11/12/19 4:36 AM [facility] Basophils Auto 0.7 % 11/12/2024 4:36 AM [facility] Abs Neutrophils Auto 2.14 2.00 - 7.50 Thou/uL 11/12/2024 4:36 AM [facility] Abs Immature Granulocytes 0.02 0.00 - 0.10 Thou/uL 11/12/2024 4:36 AM [facility] Abs Lymphocytes Auto 2.19 1.50 - 4.50 Thou/uL 11/12/2024 4:36 AM [facility] Abs Monocytes Auto 0.70 0.20 - 1.50 Thou/uL 11/12/2024 4:36 AM [facility] Abs Eosinophils Auto 0.34 0.00 - 0.70 Thou/uL 11/12/2024 4:36 AM [facility] Abs Basophils Auto 0.04 0.00 - 0.20 Thou/uL 11/12/2024 4:36 AM [facility] Blood Blood specimen / Unknown 11/12/2024 4:08 AM EST 11/12/2024 4:22 AM EST Suman Izaguirre MD LAB BLOOD ORDERABLES Final Resul t Performing Organization Address [facility] [place] [address], [place] [address] * (ABNORMAL) Partial Thromboplastin Time (PTT) (11/10/2024 6:05 AM EST) Anticoagulant IV HEPARIN, UNFRACTIONATED 11/10/2024 4:25 AM [facility] Partial Thromboplastin Time (PTT) 136(HH) 25 - 36 seconds 11/10/2024 7:29 AM [facility] Blood Plasma specimen / Unknown 11/10/2024 6:05 AM EST 11/10/2024 6:50 AM EST Pj Byers III, DO LAB BLOOD ORDERABLES Magali l Result Performing Organization Address [facility] [place] [address], [place] [address] * (ABNORMAL) Protime-INR (11/10/2024 6:05 AM EST) Anticoagulant IV HEPARIN, UNFRACTIONATED 11/10/2024 4:25 AM [facility] Prothrombin Time (PT) 14.4(H) 10.0 - 13.5 seconds 11/10/2024 7:29 AM [facility] INR 1.2 11/10/2024 7:29 AM [facility] Comment:INR Therapeutic Rang es: Standard dose anticoagulant 2.0 to 3.0, High dose anticoagulant 2.5-3.5. Blood Plasma specimen / Unknown 11/10/2024 6:05 AM EST 11/10/2024 6:50 AM EST us Pj Byers III, DO LAB BLOOD ORDERABLES Magali arellano Result [address] [address], [facility] [address] [place] [address] * (ABNORMAL) Comprehensive Metabolic Panel (11/10/2024 6:05 AM EST) Pathologist [facility] Glucose 98 65 - 99 mg/dL 11/10/2024 7:41 AM [facility] Comment:Fasting: <100 mg/dL, Non-Fasting: <200 mg/dL (ADA 2004) Blood Urea Nitrogen (BUN) 18 8 - 21 mg/dL 11/10/2024 7:41 AM [facility] Creatinine 0.8 0.4 - 1.1 mg/dL 11/10/2024 7:41 AM [facility] eGFR 75 >59 11/10/2024 7:41 AM [facility] Comment:CKD-EPI (2020) in mL /min/1.73 sq meters. Sodium 139 136 - 145 mmol/L 11/10/2024 7:41 AM [facility] Potassium 4.1 3.4 - 5.3 mmol/L 11/10/2024 7:41 AM [facility] Chloride 105 98 - 107 mmol/L 11/10/2024 7:41 AM [facility] CO2 25 22 - 33 mmol/L 11/10/2024 7:41 AM [facility] Calcium 8.8 8.7 - 10.5 mg/dL 11/10/2024 7:41 AM [facility] Alkaline Phosphatase 117 32 - 122 U/L 11/10/2024 7:41 AM [facility] Aspartate Aminotrans (AST) 32 10 - 50 U/L 11/10/2024 7:41 AM [facility] Alanine Aminotrans (ALT) 23 10 - 50 U/L 11/10/2024 7:41 AM [facility] Bilirubin, Total 0.5 0.2 - 1.0 mg/dL 11/10/2024 7:41 AM [facility] Protein, Total 6.2(L) 6.3 - 8.3 g/dL 11/10/2024 7:41 AM [facility] Albumin 3.6 3.4 - 4.8 g/dL 11/10/2024 7:41 AM [facility] BUN/Creatinine Ratio 23 10.0 - 25.0 Ratio 11/10/2024 7:41 AM [facility] Globulin 2.6 1.5 - 3.9 g/dL 11/10/2024 7:41 AM [facility] Albumin/Globulin Ratio 1.4 1.0 - 3.0 Ratio 11/10/2024 7:41 AM [facility] Anion Gap 9 7 - 17 11/10/2024 7:41 AM [facility] Blood (Plasma/Serum) 11/10/2024 6:05 AM EST 11/10/2024 6:50 AM EST Pj Byers III, DO LAB BLOOD ORDERABLES Magali l Result Performing Organization Address City/State/[facility] [place] [address], [place] [address] * ECG 12 lead (11/10/2024 4:38 AM EST) Ventricular rate 71 BPM EKG [facility] Atrial rate 71 BPM EKG [facility] P-R interval 142 ms EKG [facility] QRS duration 66 ms EKG [facility] Q-T interval 398 ms EKG [facility] QTC calculation (Bazett) 433 ms EKG [facility] P axis 35 degrees EKG [facility] R axis 9 degrees EKG [facility] T axis 31 degrees EKG [facility] 11/10/2024 4:38 AM EST Narrative EKG [facility] - 11/10/2024 4:52 AM EST Normal sinus rhythm Normal ECG No previous ECGs available Confirmed by MD Rapp John ([id number]) on 11/10/2024 4:52:11 AM Procedure Note Andrey Rapp MD - 11/10/2024 Normal sinus rhythm Normal ECG No previous ECGs available Confirmed by MD Rapp John ([id number]) on 11/10/2024 4:52:11 AM us Pj Byers III, DO ECG ORDERABLES Final Res ult EKG [facility] from Last 3 Months Insurance [facility] OUT OF NETWORK Advance Directives * Full Code (Latest Code Status on File) Date Activated Date Inactivated Comments 11/10/2024 9:12 AM Care Teams Manager Study Relationship Specialty Start Date End Date Tiffany Kent MD [address] [place] [phone] PCP - General Family Medicine 11/10/24
--- OUTSIDE RECORDS SUMMARY | 2025-01-16 19:51 | XMS_ITS | Data Portability ---
Author Organization [employer] [place] Address [address] [place] [address] Care Team Providers Care Harp Repairer Name Role Phone HIM CCA OTHER Assessment [...] Diagnosis/Indication Diagnosis SNOMED-CT Code Diagnosis ICD10 Code Diagnosis Note [id number] Katherine Chadwick MD Main - [facility] [address] [place] [id number] 08/24/2024 12:08:28 08/24/2024 12:43:33 Cough 53689095 R05.9 79 year old female with COPD, being evaluated for a week of dry cough. Patient without fever, chills or SOB. She is compliant with her inhalers, and is tolerating PO. Exam notable for normal vital signs, lungs with end expiratory wheezing. Presentati on suggestive of cough secondary to uncomplica ellen viral URI, low concern for COPD exacerbati on at this time. Continue to monitor for worsening or persistent symptoms, recommend more PO fluids and supportive care as needed. I have reviewed and agree with the assessment and plan as documented by the used car make ready worker. I provided real-time medical direction for this encounter and was immediatel y available to provide additional phone-base d assistance as needed. We discussed the diagnostic uncertaint y of home visits and associated risks. We discussed the need to seek care urgently/e mergently in the setting of any new or worsening symptoms. Health Concerns Section Related Observation LastModified by Organization Detai ls LastModified Time None Recorded Concern Status LastModified by Organization Details LastModified Time None Recorded Advance Directives Directive None Recorded Payers Encounter Date Sequence Insurance Name Policy Number Policy Mario Covered Member ID Mario Member ID Guarantor Name 08/24/2024 1 [facility] - DOS ON OR AFTER 2022 - DUAL ELIGIBLE - JAIL OPTIONS AND ONE CARE (MEDICARE REPLACEMENT/AD VANTAGE - HMO) Edilma Méndez [id number] Edilma Méndez Notes Date Note Type Note Provider Name and Address Organization Details Recorded Time 08/24/2024 text/html [facility] Nurse Triage Notes (Darius Khan): Reason For Request: Patient is short of breath, and has a history of breathing problems, wants checked out. Chief Complaints: Breathing problems PMH: Hypertension, Gastroesophageal Reflux Disease (GERD), Anxiety Disorder, COPD/Asthma Comments: Mock Up Assembler verified the Pt.'s name//address and phone number. [...] ...................... ...................... ...................... ...................... ...................... ...................... ......... Clinical Allergist Note From Sai Barajas: Dispatched to above address for cough, breathing problems. On arrival patient 79 y/o F, found sitting on cough, AOX4, airway patent, speaking in full sentences, good color, in no apparent distress. Patient Divehi speaking only, family on scene to translate. [...] radial pulse, skin pink warm and dry. [facility] contacted, spoke with Dr. Chadwick, advised of patient complaints and exam findings. [facility] believes it is likely viral URI, recommends home care, rest and follow up with PCP should symptoms worsen or continue over the next week. Patient and family advised of [facility] recommendations, home care and red flags. Patient and family understand and agree with this plan. Patient and family have no additional questions or concerns at this time. SC8 clear. EOR. ...................... ...................... ...................... ...................... ...................... ...................... ......... [facility] Consulted: Katherine Chadwick ...................... ...................... ...................... ...................... ...................... ...................... ......... Disposition: Fadia Chadwick MD [address] [facility],[address], [place], [address], [email or web address] 08/24/2024 12:13:00 OBGyn Episode No OBEpisode recorded.
[2025-01-16 19:58] LABS: INTERNATIONAL NORM RATIO 1.1 (0.9-1.1); Prothrombin Time 13.3 SEC (10.9-12.4)
[2025-01-16 20:13] LABS: Troponin-I High Sensitivity 2.9 ng/L (<3.5-17.0)
[2025-01-16 20:26] LABS: Alanine Aminotransferase 25 U/L (0-31); Albumin Level 3.8 g/dL (3.5-5.0); Alkaline Phosphatase 166 U/L (39-117); Anion Gap 11 (12-20); Aspartate Amino Transferase 35 U/L (5-31); Bilirubin Total 0.5 mg/dL (0.0-1.0); Blood Urea Nitrogen 23 mg/dL (9-16); Calcium 9.3 mg/dL (8.4-10.2); Carbon Dioxide 22 mmol/L (22-29); Chloride 111 mmol/L (96-108); Creatinine Clr Calc Pharmacy 39.3; Estimated Glomerular Filt Rate > 60; Glucose Random 134 mg/dL (60-115); Lipase 36 U/L (8-78); Potassium 4.2 mmol/L (3.3-5.1); Sodium 140 mmol/L (135-145)
[2025-01-16 20:28] VITALS: BP 126/67; PULSE 74; RESP 18; TEMP 36.8; O2SAT 95
--- NOTE | 2025-01-16 22:21 | PC.NURSE ---
pt still waiting to be seen by ED provider at this time. on lathe winder, resting comfortably in no apparent distress. daughter at bedside. call mishra within reach.
[2025-01-16 22:41] LABS: Troponin-I High Sensitivity 2.9 ng/L (<3.5-17.0)
[2025-01-16 22:51] VITALS: BP 120/69; PULSE 71; RESP 14; TEMP 36.3; O2SAT 96
--- NOTE | 2025-01-16 23:09 | MHC.EDTECH ---
this tech assumed care @[id number]
--- NOTE | 2025-01-16 23:30 | ED_ITS ---
HPI - Chest Pain General Chief Complaint: Chest Pain Stated Complaint: chest pain Time Seen by Provider: 01/16/25 22:51 Source: patient Limitations: language barrier History of Present Illness ED Provider: Kesha Wolf PA-C HPI narrative: 80-year-old female with a history of hypertension, hyperlipidemia, prior NSTEMI, presents with chest pain. Patient states she was speaking with a family member over the phone when she developed left anterior chest discomfort with radiation to the left arm and back. Patient states she still has the pain. She denies new heavy lifting, new activity or fall that could have precipitated her symptoms. No recent cough or cold symptoms no fevers. Related Data Home Medications ?Medication ?Instructions ?Recorded ?Confirmed benazepril 10 mg tablet 1 tab PO QAM 11/20/20 08/27/22 montelukast 10 mg tablet 1 tab PO BEDTIME 11/20/20 08/27/22 sertraline 100 mg tablet 200 mg PO DAILY 11/20/20 08/27/22 calcium 600 mg (as 1 tab PO BID 08/27/22 08/27/22 carbonate)-vitamin D3 5 mcg (200 unit) tablet fluticasone 500 mcg-salmeterol 50 1 puff inhalation BID 08/27/22 08/27/22 mcg/dose blistr powdr for inhalation fluticasone propionate 50 1 spray intranasal DAILY PRN 08/27/22 08/27/22 mcg/actuation nasal Allergy Symptoms spray,suspension isosorbide mononitrate 60 mg 1 tab PO DAILY 08/27/22 08/27/22 tablet,extended release 24 hr multivitamin-ferrous 1 tab PO DAILY 08/27/22 08/27/22 fumarate-folic acid 18 mg-400 mcg tablet (Certavite-Antioxidant) omeprazole 20 mg capsule,delayed 1 cap PO DAILY 08/27/22 08/27/22 release trazodone 100 mg tablet 100 mg PO BEDTIME PRN Insomnia 08/27/22 08/27/22 trazodone 100 mg tablet 200 mg PO BEDTIME 08/27/22 08/27/22 umeclidinium 62.5 mcg/actuation 1 puff inhalation DAILY 08/27/22 08/27/22 blister powder for inhalation (Incruse Ellipta) Previous Rx's ?Medication ?Instructions ?Recorded atorvastatin 80 mg tablet 80 mg PO BEDTIME #30 tabs 05/12/21 acetaminophen 500 mg tablet 500 mg PO Q6H PRN fever or pain 04/22/22 (Tylenol Extra Strength) #14 tabs cyclobenzaprine 5 mg tablet 5 mg PO Q8H PRN pain (scale score 04/22/22 7-10) 5 days #14 tabs metoclopramide HCl 5 mg tablet 5 mg PO Q6H PRN nausea and 08/06/22 (Reglan) vomiting #10 tabs aspirin 81 mg chewable tablet 81 mg PO DAILY #1 tab 08/28/22 heparin (porcine) 25,000 unit/250 25,000 unit (250 mL) continuous IV 08/28/22 mL in 0.45 % sodium chloride IV infusion .Q0M #6,000 mL soln heparin (porcine) 5,000 unit/mL 2,100 unit (0.42 mL) IVPUSH 08/28/22 injection solution PROTOCOL BOLUS PRN 40 Unit/Kg - Heparin Protocol #1 mL heparin (porcine) 5,000 unit/mL 4,100 unit (0.82 mL) IVPUSH 08/28/22 injection solution PROTOCOL BOLUS PRN 80 Unit/Kg - Heparin Protocol #1 mL metoprolol tartrate 25 mg tablet 12.5 mg (1/2 x 25 mg) PO Q6H #1 tab 08/28/22 morphine 4 mg/mL intravenous 2 mg IVPUSH Q4H PRN Pain, Severe 08/28/22 syringe (Pain Scale 7-10) #10 mL ondansetron HCl (PF) 4 mg/2 mL 4 mg (2 mL) IVPUSH Q8H PRN Nausea 08/28/22 injection solution And Vomiting #10 mL ondansetron 4 mg disintegrating 4 mg PO Q8H PRN nausea and 11/27/22 tablet vomiting #10 tabs acetaminophen 500 mg tablet 500 mg PO Q6H PRN fever or pain 12/30/22 (Tylenol Extra Strength) #14 tabs cyclobenzaprine 5 mg tablet 5 mg PO Q8H PRN pain (scale score 12/30/22 7-10) 5 days #14 tabs lidocaine 5 % topical patch 1 patch topical DAILY PRN pain #30 12/30/22 (Lidoderm) ea naproxen 500 mg tablet 500 mg PO BID PRN pain 7 days #20 12/30/22 tabs benzonatate 100 mg capsule 100 mg PO TID PRN cough 5 days #15 02/10/23 caps doxycycline hyclate 100 mg tablet 100 mg PO Q12H 7 days #14 tabs 02/10/23 acetaminophen 500 mg tablet 500 mg PO Q6H PRN fever or pain 03/22/23 (Tylenol Extra Strength) #14 tabs cyclobenzaprine 5 mg tablet 5 mg PO Q8H PRN pain (scale score 03/22/23 7-10) 5 days #14 tabs lidocaine 5 % topical patch 1 patch topical DAILY PRN pain #30 03/22/23 (Lidoderm) ea cefuroxime axetil 250 mg tablet 250 mg PO BID 7 days #14 tabs 03/24/23 tramadol 50 mg tablet 50 mg PO BID PRN pain #6 tabs 05/12/23 acetaminophen 325 mg capsule 325 mg PO Q4H PRN pain #30 caps 05/24/24 (Tylenol) lidocaine 5 % topical patch 1 patch topical DAILY PRN pain #15 05/24/24 ea methocarbamol 750 mg tablet 750 mg PO BEDTIME PRN pain #7 tabs 09/01/24 Allergies Allergy/AdvReac Type Severity Reaction Status Date / Time No Known Allergies Allergy Verified 01/16/25 19:37 Review of Systems 2 Review of Systems: Yes all other systems are reviewed and are negative Constitutional: Constitutional: Denies fatigue and Denies fever(s) Cardiovascular: Cardiovascular: Reports chest pain and Denies dyspnea Respiratory: Respiratory: Denies cough and Denies dyspnea Gastrointestinal: Gastrointestinal: Denies abdominal pain Endocrine: Endocrine: Denies fatigue [facility] Past Medical History Attestation statement: The following information was validated with the patient. Medical History Multinodular goiter (nontoxic) Pulmonary embolism Asthma Pancreatitis Diabetes Hypertension High cholesterol GERD (gastroesophageal reflux disease) Aortic insufficiency Depression NSTEMI (non-ST elevated myocardial infarction) Surgical History No history of previous surgery Family History Family History Father Hypertension Heart disease Mother Hypertension Heart disease Social History Social History Household Members: Family and Other Household Members Other:: daughter is professor of english Housing: Apartment Do you presently have visiting nurse or other home services: No Alcohol intake: never Patient Tobacco Use Status: Never used Tobacco Smoked in Last 30 Days: No Second Hand Smoke Exposure: No Use of substances other than those prescribed or required for medical reasons: No Advance Directives: No Advance Directives Information Provided: Yes Do you have a plan to hurt others: No Plan service: No Current occupational status: unemployed and disabled Physical Exam 2 Vital Signs: Vital Signs: Last Vital Signs Temp 97.4 F 01/16/25 22:51 Pulse 71 01/16/25 22:51 Resp 14 01/16/25 22:51 BP 120/69 01/16/25 22:51 Pulse Ox 96 01/16/25 22:51 O2 Del Method Room Air 01/16/25 22:51 BMI result Body Mass Index 22.2 Const: Other: Alert Orientation/consciousness: patient oriented x3 Resp: Effort & Inspection: normal respiratory effort Cardio: Other: Normal peripheral perfusion Skin: Other: Warm dry no rash Neuro: General: patient oriented x3, gait normal, no focal motor deficits and CN's II-XI intact bilaterally Psych: Other: Cooperative Medical Decision Making Medical Decision Making MDM Narrative: 80-year-old female with a history of hypertension, hyperlipidemia, prior NSTEMI, presents with chest pain. Patient states she was speaking with a family member over the phone when she developed left anterior chest discomfort with radiation to the left arm and back. Patient states she still has the pain. She denies new heavy lifting, new activity or fall that could have precipitated her symptoms. No recent cough or cold symptoms no fevers. Problem: Known coronary artery disease History: Per patient I have considered the following differential diagnoses: ACS, chest wall strain, costochondritis, pneumonia Plan: ACS was considered the patient has known coronary artery disease, screening labs including 2 cardiac enzymes EKG and chest x-ray were obtained from triage. Her assessment is negative. She has no mechanism of injury for chest wall strain, she has no infectious signs symptoms to suggest pneumonia, or costochondritis from viral syndrome. She can follow up with the primary care provider. I have independently reviewed the following tests: Labs: No leukocytosis, not anemic, no electrolyte abnormality, troponin x2 negative EKG: Normal sinus rhythm, rate of 76, no ischemic changes, no ectopy QTC 427 Chest x-ray: XR/XR chest 2V IMPRESSION: No acute intrathoracic disease. Left basilar atelectasis/scarring. Lab Data 01/16/25 19:46 01/16/25 19:46 Labs: Lab Results 01/16/25 01/16/25 Range/Units 19:46 22:17 WBC 5.9 (4.8-10.8) X10*3/uL RBC 4.31 (4.20-5.50) X10*6/uL Hgb 12.5 (12.0-16.0) g/dl Hct 38.5 (37.0-47.0) % MCV 89.3 (80.0-98.0) fL MCH 29.0 (27.0-33.0) pg MCHC 32.5 (31.0-35.0) g/dl RDW 13.0 (11.0-16.0) % Plt Count 196 (160-400) X10*3/uL MPV 11.1 (9.4-12.3) fL Immature Gran % (Auto) 0.3 (0.0-0.4) % Neut % (Auto) 51.5 (45-73) % Lymph % (Auto) 32.1 (20-40) % Pitkin % (Auto) 12.2 H (2-11) % Eos % (Auto) 3.4 (0-4) % Baso % (Auto) 0.5 (0-2) % Lymph # (Auto) 1.9 (1.2-4.9) X10*3/uL Pitkin # (Auto) 0.7 (0.1-1.2) X10*3/uL Eos # (Auto) 0.2 (0.0-0.4) X10*3/uL Baso # (Auto) 0.0 (0.0-0.2) X10*3/uL Abs Immat Gran (auto) 0.02 (0.00-0.03) X10*3/uL Absolute Neuts (auto) 3.1 (2.0-8.3) x10*3/uL Absolute Nucleated RBC 0.000 (0.0-0.012) X10*3/uL Nucleated RBC % (auto) 0.0 (0.0-0.2) /100WBC PT 13.3 H (10.9-12.4) SEC INR 1.1 (0.9-1.1) Sodium 140 (135-145) mmol/L Potassium 4.2 (3.3-5.1) mmol/L Chloride 111 H (96-108) mmol/L Carbon Dioxide 22 (22-29) mmol/L Anion Gap 11 L (12-20) BUN 23 H (9-16) mg/dL Creatinine 0.82 (0.5-1.4) mg/dL Estim Creat Clear Calc 39.3 Estimated GFR > 60 Random Glucose 134 H (60-115) mg/dL Calcium 9.3 (8.4-10.2) mg/dL Magnesium 2.0 (1.6-2.6) mg/dL Total Bilirubin 0.5 (0.0-1.0) mg/dL AST 35 H (5-31) U/L ALT 25 (0-31) U/L Alkaline Phosphatase 166 H (39-117) U/L Troponin I High Sens 2.9 D 2.9 (<3.5-17.0) ng/L Total Protein 7.0 (6.5-8.0) g/dL Albumin 3.8 (3.5-5.0) g/dL Lipase 36 (8-78) U/L Discharge Plan Discharge Clinical Impression: Chest pain Patient Disposition: Home, Self-Care Instructions: Chest Pain (ED) Additional Instructions: All of your screening labs including 2 cardiac enzymes were normal. There were no concerning changes on the EKG in the chest x-ray was clear. Your discomfort today is not related to your heart. Follow up with your primary care provider next week. Prescriptions: No Action sertraline 100 mg tablet 200 mg PO DAILY montelukast 10 mg tablet 1 tab PO BEDTIME benazepril 10 mg tablet 1 tab PO QAM atorvastatin 80 mg Tablet 80 mg PO BEDTIME Qty: 30 0RF acetaminophen [Tylenol Extra Strength] 500 mg tablet 500 mg PO Q6H PRN (Reason: fever or pain) Qty: 14 0RF cyclobenzaprine 5 mg tablet 5 mg PO Q8H PRN (Reason: pain (scale score 7-10)) 5 Days Qty: 14 0RF metoclopramide HCl [Reglan] 5 mg tablet 5 mg PO Q6H PRN (Reason: nausea and vomiting) Qty: 10 0RF ondansetron 4 mg tablet,disintegrating 4 mg PO Q8H PRN (Reason: nausea and vomiting) Qty: 10 0RF calcium carbonate-vitamin D3 600 mg-5 mcg (200 unit) tablet 1 tab PO BID fluticasone propion-salmeterol 500-50 mcg/dose blister with device 1 puff inhalation BID Certavite-Antioxidant 18-400 mg-mcg tablet 1 tab PO DAILY Incruse Ellipta 62.5 mcg/actuation blister with device 1 puff inhalation DAILY isosorbide mononitrate 60 mg tablet extended release 24 hr 1 tab PO DAILY trazodone 100 mg tablet 200 mg PO BEDTIME omeprazole 20 mg capsule,delayed release(DR/EC) 1 cap PO DAILY trazodone 100 mg tablet 100 mg PO BEDTIME PRN (Reason: Insomnia) Rx Instructions: If addition to 200 mg if cannot sleep fluticasone propionate 50 mcg/actuation Ragland,Suspension 1 spray INTRANASAL DAILY PRN (Reason: Allergy Symptoms) Rx Instructions: administer into each nostril heparin(porcine) in 0.45% NaCl 25,000 unit/250 mL Parenteral Solution 25,000 unit continuous IV infusion .Q0M Qty: 6000 0RF aspirin 81 mg Tablet,Chewable 81 mg PO DAILY Qty: 1 0RF heparin (porcine) 5,000 unit/mL Solution 2,100 unit IVPUSH PROTOCOL BOLUS PRN (Reason: 40 Unit/Kg - Heparin Protocol) Qty: 1 0RF heparin (porcine) 5,000 unit/mL Solution 4,100 unit IVPUSH PROTOCOL BOLUS PRN (Reason: 80 Unit/Kg - Heparin Protocol) Qty: 1 0RF morphine 4 mg/mL Syringe 2 mg IVPUSH Q4H PRN (Reason: Pain, Severe (Pain Scale 7-10)) Qty: 10 0RF Protocol: Hold for RR < HOLD and contact provider for RR < (bpm): 12 Rx Instructions: Partial Fill upon patient request. ondansetron HCl (PF) 4 mg/2 mL Solution 4 mg IVPUSH Q8H PRN (Reason: Nausea And Vomiting) Qty: 10 0RF metoprolol tartrate 25 mg tablet 12.5 mg PO Q6H Qty: 1 0RF acetaminophen [Tylenol Extra Strength] 500 mg tablet 500 mg PO Q6H PRN (Reason: fever or pain) Qty: 14 0RF lidocaine [Lidoderm] 5 % adhesive patch,medicated 1 patch topical DAILY MDD remove after 12 hours PRN (Reason: pain) Qty: 30 0RF Rx Instructions: leave on most painful area for up to 12 hrs cyclobenzaprine 5 mg tablet 5 mg PO Q8H PRN (Reason: pain (scale score 7-10)) 5 Days Qty: 14 0RF cefuroxime axetil 250 mg tablet 250 mg PO BID 7 Days Qty: 14 0RF lidocaine 5 % adhesive patch,medicated 1 patch topical DAILY PRN (Reason: pain) Qty: 15 0RF Rx Instructions: leave on most painful area for up to 12 hrs acetaminophen [Tylenol] 325 mg capsule 325 mg PO Q4H PRN (Reason: pain) Qty: 30 0RF methocarbamol 750 mg tablet 750 mg PO BEDTIME PRN (Reason: pain) Qty: 7 0RF acetaminophen [Tylenol Extra Strength] 500 mg tablet 500 mg PO Q6H PRN (Reason: fever or pain) Qty: 14 0RF lidocaine [Lidoderm] 5 % adhesive patch,medicated 1 patch topical DAILY MDD remove after 12 hours PRN (Reason: pain) Qty: 30 0RF Rx Instructions: leave on most painful area for up to 12 hrs naproxen 500 mg tablet 500 mg PO BID PRN (Reason: pain) 7 Days Qty: 20 0RF cyclobenzaprine 5 mg tablet 5 mg PO Q8H PRN (Reason: pain (scale score 7-10)) 5 Days Qty: 14 0RF doxycycline hyclate 100 mg tablet 100 mg PO Q12H 7 Days Qty: 14 0RF benzonatate 100 mg capsule 100 mg PO TID PRN (Reason: cough) 5 Days Qty: 15 0RF tramadol 50 mg tablet 50 mg PO BID PRN (Reason: pain) Qty: 6 0RF Print Language: Slovak
[2025-01-16 23:45] VITALS: BP 120/69; PULSE 71; RESP 14; TEMP 36.3; O2SAT 96
== END 2025-01-16 23:45 | disposition home or self-care (01) ==
PROVIDERS: Emergency Provider Emergency Medicine; PCP Family Medicine
DX: R07.9 Chest pain, unspecified (principal); I10 Essential (primary) hypertension; E78.5 Hyperlipidemia, unspecified; E11.9 Type 2 diabetes mellitus without complications; Z79.899 Other long term (current) drug therapy
CPT/HCPCS: 36415; 80053; 83690; 83735; 84484; 85025; 85610; 93005; 99283; 99285

== ENCOUNTER → 2025-01-16 19:38 | Outpatient (BNV) | payer OTHER, SELFPAY | PROVIDERS: Emergency Provider Emergency Medicine; PCP Family Medicine; Visit Provider Internal Medicine Cardiovascular Disease | DX: R07.9 Chest pain, unspecified (principal) | CPT/HCPCS: 93010 ==

== ENCOUNTER 2025-03-10 19:41 | Emergency (ER) | payer OTHER, SELFPAY ==
[2025-03-10 19:47] VITALS: BP 128/80; PULSE 74; O2SAT 98
[2025-03-10 19:51] VITALS: BP 177/86; PULSE 73; RESP 16; TEMP 36.8; O2SAT 96; BMI 23.0
[2025-03-10 20:00] VITALS: BP 165/75; PULSE 70; RESP 13; TEMP 36.9; O2SAT 100
--- NOTE | 2025-03-10 20:21 | ECG_ITS ---
Test Reason : ABDOMINAL PAIN Blood Pressure : */* mmHG Vent. Rate : 70 BPM Atrial Rate : 70 BPM P-R Int : 114 ms QRS Dur : 70 ms QT Int : 420 ms P-R-T Axes : 44 -7 23 degrees QTcB Int : 453 ms Normal sinus rhythm Normal ECG When compared with ECG of 16-Jan-2025 19:38, No significant change was found Referred By: Petty Power Electronically Signed By: Sher Dugan
[2025-03-10 20:35] LABS: MANUAL DIFF FLAG NO
[2025-03-10 20:37] LABS: Basophils Percent Auto 0.7 % (0-2); Eosinophils Absolute Auto 0.3 X10*3/uL (0.0-0.4); Eosinophils Percent Auto 4.6 % (0-4); Hematocrit 39.2 % (37.0-47.0); Imm Gran Abs Auto 0.01 X10*3/uL (0.00-0.03); Imm Gran Pct Auto 0.2 % (0.0-0.4); Lymphocytes Absolute Auto 1.9 X10*3/uL (1.2-4.9); Lymphocytes Percent Auto 34.2 % (20-40); Mean Corpuscular HGB Conc 33.2 g/dl (31.0-35.0); Mean Corpuscular Volume 87.3 fL (80.0-98.0); Monocytes Absolute Auto 0.7 X10*3/uL (0.1-1.2); Monocytes Percent Auto 11.9 % (2-11); Neutrophils Absolute Auto 2.6 x10*3/uL (2.0-8.3); Neutrophils Percent Auto 48.4 % (45-73); Platelet Count 196 X10*3/uL (160-400); Red Blood Count 4.49 X10*6/uL (4.20-5.50); White Blood Count 5.4 X10*3/uL (4.8-10.8)
[2025-03-10 20:52] LABS: Alanine Aminotransferase 24 U/L (0-31); Albumin Level 4.3 g/dL (3.5-5.0); Alkaline Phosphatase 176 U/L (39-117); Anion Gap 14 (12-20); Aspartate Amino Transferase 33 U/L (5-31); Bilirubin Direct 0.2 mg/dL (0.0-0.5); Bilirubin Total 0.5 mg/dL (0.0-1.0); Blood Urea Nitrogen 22 mg/dL (9-16); Calcium 9.7 mg/dL (8.4-10.2); Carbon Dioxide 24 mmol/L (22-29); Chloride 109 mmol/L (96-108); Creatinine Clr Calc Pharmacy 36.6; Estimated Glomerular Filt Rate > 60; Glucose Random 117 mg/dL (60-115); Lipase 43 U/L (8-78); Magnesium 2.1 mg/dL (1.6-2.6); Potassium 4.7 mmol/L (3.3-5.1); Sodium 142 mmol/L (135-145); Total Protein 7.3 g/dL (6.5-8.0)
[2025-03-10 21:00] LABS: Troponin-I High Sensitivity < 2.7 ng/L (<3.5-17.0)
[2025-03-10 21:38] LABS: Appearance Urine Clear; Color Urine Yellow; Glucose Urine UA Negative (Negative); Leukocyte Esterase Urine Small (1+) (Negative); Nitrite Urine Negative (Negative); Specific Gravity - Urine <= 1.005 (1.005-1.025); UMIC TRIGGER UACC YES; Urine Blood Negative (Negative); Urine Ketones Negative (Negative); Urine Protein Negative (Neg-Trace)
--- NOTE | 2025-03-10 21:46 | ED_ITS ---
HPI - Abdominal Pain General Chief Complaint: Abdominal Pain Stated Complaint: RLQ pain Time Seen by Provider: 03/10/25 21:28 Source: patient Mode of arrival: EMS Limitations: no limitations History of Present Illness ED Provider: Dr. Ayo Vieyra HPI narrative: 80-year-old female with past medical history of multinodular goiter, pulmonary embolism, asthma, pancreatitis, diabetes, hypertension, hypercholesterolemia, GERD, aortic insufficiency, depression, NSTEMI, sciatica who presents emergency department for evaluation of flare-up of her sciatica. The patient states she has constant pain in her right lower back and buttocks. She states the pain got worse over the last 24 hours and the pain is not radiating down to her foot. The pain goes down the back of her leg. She denies any weakness of her lower extremity. She denied loss of bowel or bladder control. She states that the pain that has now traveling to her right lower part of her abdomen into her bladder. Patient has had urinary frequency but no dysuria. She states she had nausea with no vomiting. She states that yesterday she had 3 episodes of diarrheal stool with no diarrheal stool today. The patient did not take any medications for her pain. Related Data Home Medications ?Medication ?Instructions ?Recorded ?Confirmed benazepril 10 mg tablet 1 tab PO QAM 11/20/20 montelukast 10 mg tablet 1 tab PO BEDTIME 11/20/20 sertraline 100 mg tablet 200 mg PO DAILY 11/20/2005/11 calcium 600 mg (as 1 tab PO BID 08/27/22 carbonate)-vitamin D3 5 mcg (200 unit) tablet fluticasone 500 mcg-salmeterol 50 1 puff inhalation BI D 08/27/22 08/27/22 mcg/dose blistr powdr for inhalation fluticasone propionate 50 1 spray intranasal DAILY PRN 08/27/22 08/27/22 mcg/actuation nasal Allergy Symptoms spray,suspension isosorbide mononitrate 60 mg 1 tab PO DAILY 08/27/22 1 10/28/21 tablet,extended release 24 hr multivitamin-ferrous 1 tab PO DAILY 08/27/22 12/05/11 fumarate-folic acid 18 mg-400 mcg tablet (Certavite-Antioxidant) omeprazole 20 mg capsule,delayed 1 cap PO DAILY 08/27/22 release trazodone 100 mg tablet 100 mg PO BEDTIME PRN Insomn ia 08/27/22 08/27/22 trazodone 100 mg tablet 200 mg PO BEDTIME 08/27/22 1 10/28/21 umeclidinium 62.5 mcg/actuation 1 puff inhalation SUZI Y 08/27/22 08/27/22 blister powder for inhalation (Incruse Ellipta) Previous Rx's ?Medication ?Instructions ?Recorded atorvastatin 80 mg tablet 80 mg PO BEDTIME #30 tabs acetaminophen 500 mg tablet 500 mg PO Q6H PRN fever or pain 04/22/22 (Tylenol Extra Strength) #14 tabs cyclobenzaprine 5 mg tablet 5 mg PO Q8H PRN pain (scal e score 04/22/22 7-10) 5 days #14 tabs metoclopramide HCl 5 mg tablet 5 mg PO Q6H PRN nausea and 08/06/22 (Reglan) vomiting #10 tabs aspirin 81 mg chewable tablet 81 mg PO DAILY #1 tab heparin (porcine) 25,000 unit/250 25,000 unit (250 mL) continuous IV 08/28/22 mL in 0.45 % sodium chloride IV infusion .Q0M #6,000 m L soln heparin (porcine) 5,000 unit/mL 2,100 unit (0.42 mL) I VPUSH 08/28/22 injection solution PROTOCOL BOLUS PRN 40 Unit/K g - Heparin Protocol #1 mL heparin (porcine) 5,000 unit/mL 4,100 unit (0.82 mL) I VPUSH 08/28/22 injection solution PROTOCOL BOLUS PRN 80 Unit/K g - Heparin Protocol #1 mL metoprolol tartrate 25 mg tablet 12.5 mg (1/2 x 25 mg) PO Q6H #1 tab 08/28/22 morphine 4 mg/mL intravenous 2 mg IVPUSH Q4H PRN Pain, Severe 08/28/22 syringe (Pain Scale 7-10) #10 mL ondansetron HCl (PF) 4 mg/2 mL 4 mg (2 mL) IVPUSH Q8H PRN Nausea 08/28/22 injection solution And Vomiting #10 mL ondansetron 4 mg disintegrating 4 mg PO Q8H PRN nausea and 11/27/22 tablet vomiting #10 tabs acetaminophen 500 mg tablet 500 mg PO Q6H PRN fever or pain 12/30/22 (Tylenol Extra Strength) #14 tabs cyclobenzaprine 5 mg tablet 5 mg PO Q8H PRN pain (scal e score 12/30/22 7-10) 5 days #14 tabs lidocaine 5 % topical patch 1 patch topical DAILY PRN pain #30 12/30/22 (Lidoderm) ea naproxen 500 mg tablet 500 mg PO BID PRN pain 7 day s #20 12/30/22 tabs benzonatate 100 mg capsule 100 mg PO TID PRN cough 5 d ays #15 02/10/23 caps doxycycline hyclate 100 mg tablet 100 mg PO Q12H 7 day s #14 tabs 02/10/23 acetaminophen 500 mg tablet 500 mg PO Q6H PRN fever or pain 03/22/23 (Tylenol Extra Strength) #14 tabs cyclobenzaprine 5 mg tablet 5 mg PO Q8H PRN pain (scal e score 03/22/23 7-10) 5 days #14 tabs lidocaine 5 % topical patch 1 patch topical DAILY PRN pain #30 03/22/23 (Lidoderm) ea cefuroxime axetil 250 mg tablet 250 mg PO BID 7 days # 14 tabs 03/24/23 tramadol 50 mg tablet 50 mg PO BID PRN pain #6 tab s 05/12/23 acetaminophen 325 mg capsule 325 mg PO Q4H PRN pain #3 0 caps 05/24/24 (Tylenol) lidocaine 5 % topical patch 1 patch topical DAILY PRN pain #15 05/24/24 ea methocarbamol 750 mg tablet 750 mg PO BEDTIME PRN pain #7 tabs 09/01/24 Allergies Allergy/AdvReac Type Severity Reaction Status Date / Time No Known Allergies Allergy Verified 03/10/25 19:53 Review of Systems Review of Systems Yes all other systems are reviewed and are negative [facility] Past Medical History [facility] Narrative: Social history: She lives at home with her . She denies tobacco, alcohol and drug use. Medical History Multinodular goiter (nontoxic) Pulmonary embolism Asthma Pancreatitis Diabetes Hypertension High cholesterol GERD (gastroesophageal reflux disease) Aortic insufficiency Depression NSTEMI (non-ST elevated myocardial infarction) Surgical History No history of previous surgery Family History Family History Father Hypertension Heart disease Mother Hypertension Heart disease Social History Social History Household Members: Family and Other Household Members Other:: daughter is computer systems software engineer Housing: Apartment Do you presently have visiting nurse or other home services: No Alcohol intake: never Patient Tobacco Use Status: Never used Tobacco Smoked in Last 30 Days: No Second Hand Smoke Exposure: No Use of substances other than those prescribed or required for medical reasons: No Advance Directives: No Advance Directives Information Provided: Yes service: No Current occupational status: unemployed and disabled Physical Exam ED Vital Signs: Vital Signs - 24 hr 03/10/25 19:51 03/10/25 20:00 03/10/25 22:00 Temperature 98.3 F 98.5 F 98.7 F Pulse Rate 73 70 77 Respiratory Rate 16 13 15 Blood Pressure 177/86 H 165/75 H 138/78 Pulse Oximetry 96 100 100 Oxygen Delivery Method Room Air Room Air Room Air BMI result Body Mass Index 23.0 Vital signs revealed an elevated blood pressure of 177/86 otherwise unremarkable Exam: General: Awake, alert in no distress Head: Normocephalic, atraumatic EENT: PERRL, Lids normal, sclera normal, conjunctiva normal, nose normal , ears normal, throat without erythema or exudates Neck: Supple, no adenopathy Lung: breath sounds symmetric, no wheezing, rales or rhonchi Chest: symmetric movement, nontender Heart: regular rate and rhythm, normal S1, S2 no murmurs or rubs Abdomen: soft, non-tender, nondistended, normal bowel sounds Back: Tenderness palpation of her right paraspinal muscles in the lumbar sacral area with no spasm of these muscles, positive straight leg right but negative straight leg raise on the left Extremities: no deformities, moves all extremities symmetrically Neuro: Awake, alert, oriented, normal speech, cranial nerves intact, moves all extremities symmetrically Psych: Pleasant, cooperative Medical Decision Making Medical Decision Making MDM Narrative: 80-year-old female with past medical history of multinodular goiter, pulmonary embolism, asthma, pancreatitis, diabetes, hypertension, hypercholesterolemia, GERD, aortic insufficiency, depression, NSTEMI, sciatica who presents emergency department for evaluation of flare-up of her sciatica. The patient states she has constant pain in her right lower back and buttocks. She states the pain got worse over the last 24 hours and the pain is not radiating down to her foot. The pain goes down the back of her leg. She denies any weakness of her lower extremity. She denied loss of bowel or bladder control. She states that the pain that has now traveling to her right lower part of her abdomen into her bladder. Patient has had urinary frequency but no dysuria. She states she had nausea with no vomiting. She states that yesterday she had 3 episodes of diarrheal stool with no diarrheal stool today. The patient did not take any medications for her pain. Vital signs revealed an elevated blood pressure otherwise unremarkable. Exam did reveal right paraspinal muscle tenderness in the lumbar sacral area with positive right straight leg raise but negative left straight leg raise. Differential diagnosis: ?Includes but is not limited to lumbar strain, lumbar spasm, sciatica, urinary tract infection, anemia, electrolyte abnormalities Course: 21:56 My independent interpretation patient's laboratory evaluation is as follows: CBC was normal. Chloride elevated 109. BUN elevated 22 with a normal creatinine of 0.88. Glucose elevated 117. AST elevated 33. Alk-phos elevated 176. Troponin below detectable limits. Urinalysis was positive for leukocyte esterase. Urine microscopic revealed no significant RBCs, WBCs and no bacteria. Patient's symptoms are consistent with flare-up of her sciatica. She was given Toradol 15 mg IV. 23:27 Patient had minimal relief of her pain with IV Toradol, she was given morphine 2 mg IV. The patient's daughter is here. The daughter states the patient has had an injection in her back before that is help with your pain otherwise there has been no medications that hip relieved her mother's sciatica pain. Patient will be discharged home. She was advised to take Tylenol for pain. She denies follow up with the PCP for further evaluation and treatment. Admission/Observation Consideration of admission/observation: Escalation of care including admission/observation considered (Yes) Lab Data [facility] Lab Attestation statement: I reviewed the patient's lab results. 03/10/25 20:31 03/10/25 20:31 Labs: Lab Results 03/10/25 03/10/25 Range/Units 20:31 21:32 WBC 5.4 (4.8-10.8) X10*3/uL RBC 4.49 (4.20-5.50) X10*6/uL Hgb 13.0 (12.0-16.0) g/dl Hct 39.2 (37.0-47.0) % MCV 87.3 (80.0-98.0) fL MCH 29.0 (27.0-33.0) pg MCHC 33.2 (31.0-35.0) g/dl RDW 13.0 (11.0-16.0) % Plt Count 196 (160-400) X10*3/uL MPV 11.0 (9.4-12.3) fL Immature Gran % (Auto) 0.2 (0.0-0.4) % Neut % (Auto) 48.4 (45-73) % Lymph % (Auto) 34.2 (20-40) % [place] % (Auto) 11.9 H (2-11) % Eos % (Auto) 4.6 H (0-4) % Baso % (Auto) 0.7 (0-2) % Lymph # (Auto) 1.9 (1.2-4.9) X10*3/uL [place] # (Auto) 0.7 (0.1-1.2) X10*3/uL Eos # (Auto) 0.3 (0.0-0.4) X10*3/uL Baso # (Auto) 0.0 (0.0-0.2) X10*3/uL Abs Immat Gran (auto) 0.01 (0.00-0.03) X10*3/uL Absolute Neuts (auto) 2.6 (2.0-8.3) x10*3/uL Absolute Nucleated RBC 0.000 (0.0-0.012) X10*3/uL Nucleated RBC % (auto) 0.0 (0.0-0.2) /100WBC Sodium 142 (135-145) mmol/L Potassium 4.7 (3.3-5.1) mmol/L Chloride 109 H (96-108) mmol/L Carbon Dioxide 24 (22-29) mmol/L Anion Gap 14 (12-20) BUN 22 H (9-16) mg/dL Creatinine 0.88 (0.5-1.4) mg/dL Estim Creat Clear Calc 36.6 Estimated GFR > 60 Random Glucose 117 H (60-115) mg/dL Calcium 9.7 (8.4-10.2) mg/dL Magnesium 2.1 (1.6-2.6) mg/dL Total Bilirubin 0.5 (0.0-1.0) mg/dL Direct Bilirubin 0.2 (0.0-0.5) mg/dL AST 33 H (5-31) U/L ALT 24 (0-31) U/L Alkaline Phosphatase 176 H (39-117) U/L Troponin I High Sens < 2.7 (<3.5-17.0) ng/L Total Protein 7.3 (6.5-8.0) g/dL Albumin 4.3 (3.5-5.0) g/dL Lipase 43 (8-78) U/L Urine Color Yellow Urine Appearance Clear Urine pH 7.0 (5.0-9.0) Ur Specific [place] <= 1.005 (1.005-1.025) Urine Protein Negative (Neg-Trace) mg/dL Urine Glucose (UA) Negative (Negative) mg/dL Urine Ketones Negative (Negative) mg/dL Urine Blood Negative (Negative) Urine Nitrite Negative (Negative) Ur Leukocyte Esterase Small (1+) H (Negative) Urine RBC 0-2 (0-2) /HPF Urine WBC 0-5 (0-5) /HPF Ur Squamous Epith Cells 0-2 (0-2) /HPF Urine Bacteria None Seen (None Seen) Hyaline Casts 0-2 (0-2) /LPF Independent Historian Clinical information obtained from an independent historian. History obtained from or confirmed by: Other (Daughter) Chronic Conditions Patient?s care impacted by: Hypertension Medications Administered Discontinued Medications Generic Name Dose Route Start Last Admin Trade Name Freq PRN Reason Stop Dose Admin Ketorolac Tromethamine 15 mg 03/10/25 21:46 03/10/25 21:55 Ketorolac Tromethamine 15 Mg/Ml Vial IVPUSH 03/10/25 21:47 15 mg ONCE STA Administration Morphine Sulfate 2 mg 03/10/25 22:50 03/10/25 22:58 Morphine Sulfate 2 Mg/Ml Cartridge IVPUSH 03/10/25 22:51 2 mg ONCE ONE Administration Protocol Discharge Plan Discharge Clinical Impression: Acute right-sided back pain with sciatica Patient Disposition: Home, Self-Care Additional Instructions: Your blood work was unremarkable. Your urinalysis was negative for urinary tract infection. Your symptoms are consistent with a flare-up of your sciatica. Take extra-strength Tylenol 500 mg pills, 2 pills every 6 hours as needed for pain. Apply ice for 15 minutes to your lower back 4 to 6 times a day to reduce the inflammation and swelling in your back mycins to try to help improve your pain. Follow-up with your doctor in 2 days. Please return to the emergency department if your symptoms get worse or if you develop any symptoms that are concerning to you. Prescriptions: No Action sertraline 100 mg tablet 200 mg PO DAILY montelukast 10 mg tablet 1 tab PO BEDTIME benazepril 10 mg tablet 1 tab PO QAM atorvastatin 80 mg Tablet 80 mg PO BEDTIME Qty: 30 0RF acetaminophen [Tylenol Extra Strength] 500 mg tablet 500 mg PO Q6H PRN (Reason: fever or pain) Qty: 14 0RF cyclobenzaprine 5 mg tablet 5 mg PO Q8H PRN (Reason: pain (scale score 7-10)) 5 Days Qty: 14 0RF metoclopramide HCl [Reglan] 5 mg tablet 5 mg PO Q6H PRN (Reason: nausea and vomiting) Qty: 10 0RF ondansetron 4 mg tablet,disintegrating 4 mg PO Q8H PRN (Reason: nausea and vomiting) Qty: 10 0RF calcium carbonate-vitamin D3 600 mg-5 mcg (200 unit) tablet 1 tab PO BID fluticasone propion-salmeterol 500-50 mcg/dose blister with device 1 puff inhalation BID Certavite-Antioxidant 18-400 mg-mcg tablet 1 tab PO DAILY Incruse Ellipta 62.5 mcg/actuation blister with device 1 puff inhalation DAILY isosorbide mononitrate 60 mg tablet extended release 24 hr 1 tab PO DAILY trazodone 100 mg tablet 200 mg PO BEDTIME omeprazole 20 mg capsule,delayed release(DR/EC) 1 cap PO DAILY trazodone 100 mg tablet 100 mg PO BEDTIME PRN (Reason: Insomnia) Rx Instructions: If addition to 200 mg if cannot sleep fluticasone propionate 50 mcg/actuation [place],Suspension 1 spray INTRANASAL DAILY PRN (Reason: Allergy Symptoms) Rx Instructions: administer into each nostril heparin(porcine) in 0.45% NaCl 25,000 unit/250 mL Parenteral Solution 25,000 unit continuous IV infusion .Q0M Qty: 6000 0RF aspirin 81 mg Tablet,Chewable 81 mg PO DAILY Qty: 1 0RF heparin (porcine) 5,000 unit/mL Solution 2,100 unit IVPUSH PROTOCOL BOLUS PRN (Reason: 40 Unit/Kg - Heparin Protocol) Qty: 1 0RF heparin (porcine) 5,000 unit/mL Solution 4,100 unit IVPUSH PROTOCOL BOLUS PRN (Reason: 80 Unit/Kg - Heparin Protocol) Qty: 1 0RF morphine 4 mg/mL Syringe 2 mg IVPUSH Q4H PRN (Reason: Pain, Severe (Pain Scale 7-10)) Qty: 10 0RF Protocol: Hold for RR < HOLD and contact provider for RR < (bpm): 12 Rx Instructions: Partial Fill upon patient request. ondansetron HCl (PF) 4 mg/2 mL Solution 4 mg IVPUSH Q8H PRN (Reason: Nausea And Vomiting) Qty: 10 0RF metoprolol tartrate 25 mg tablet 12.5 mg PO Q6H Qty: 1 0RF acetaminophen [Tylenol Extra Strength] 500 mg tablet 500 mg PO Q6H PRN (Reason: fever or pain) Qty: 14 0RF lidocaine [Lidoderm] 5 % adhesive patch,medicated 1 patch topical DAILY MDD remove after 12 hours PRN (Reason: pain) Qty: 30 0RF Rx Instructions: leave on most painful area for up to 12 hrs cyclobenzaprine 5 mg tablet 5 mg PO Q8H PRN (Reason: pain (scale score 7-10)) 5 Days Qty: 14 0RF cefuroxime axetil 250 mg tablet 250 mg PO BID 7 Days Qty: 14 0RF lidocaine 5 % adhesive patch,medicated 1 patch topical DAILY PRN (Reason: pain) Qty: 15 0RF Rx Instructions: leave on most painful area for up to 12 hrs acetaminophen [Tylenol] 325 mg capsule 325 mg PO Q4H PRN (Reason: pain) Qty: 30 0RF methocarbamol 750 mg tablet 750 mg PO BEDTIME PRN (Reason: pain) Qty: 7 0RF acetaminophen [Tylenol Extra Strength] 500 mg tablet 500 mg PO Q6H PRN (Reason: fever or pain) Qty: 14 0RF lidocaine [Lidoderm] 5 % adhesive patch,medicated 1 patch topical DAILY MDD remove after 12 hours PRN (Reason: pain) Qty: 30 0RF Rx Instructions: leave on most painful area for up to 12 hrs naproxen 500 mg tablet 500 mg PO BID PRN (Reason: pain) 7 Days Qty: 20 0RF cyclobenzaprine 5 mg tablet 5 mg PO Q8H PRN (Reason: pain (scale score 7-10)) 5 Days Qty: 14 0RF doxycycline hyclate 100 mg tablet 100 mg PO Q12H 7 Days Qty: 14 0RF benzonatate 100 mg capsule 100 mg PO TID PRN (Reason: cough) 5 Days Qty: 15 0RF tramadol 50 mg tablet 50 mg PO BID PRN (Reason: pain) Qty: 6 0RF Print Language: Divehi
[2025-03-10] MEDS: Ketorolac Tromethamine 15 MG/ML VIAL IVPUSH (21:55)
[2025-03-10 21:59] LABS: Bacteria Urine None Seen (None Seen); Hyaline Casts Urine 0-2 /LPF (0-2); RBC Urine 0-2 /HPF (0-2); Squamous Epithelial Cell Urine 0-2 /HPF (0-2); UACC Culture Trigger YES; WBC Urine 0-5 /HPF (0-5)
[2025-03-10 22:00] VITALS: BP 138/78; PULSE 77; RESP 15; TEMP 37.1; O2SAT 100
[2025-03-10] MEDS: Morphine Sulfate 2 MG/ML CARTRIDGE IVPUSH (22:58)
[2025-03-10 23:38] VITALS: BP 126/71; PULSE 66; RESP 18; TEMP 37.2; O2SAT 96
== END 2025-03-10 23:53 | disposition home or self-care (01) ==
PROVIDERS: Physician Assistant Medical; Emergency Provider Emergency Medicine Emergency Medical Services
DX: M54.41 Lumbago with sciatica, right side (principal); E11.9 Type 2 diabetes mellitus without complications; I10 Essential (primary) hypertension; E78.00 Pure hypercholesterolemia, unspecified; J45.909 Unspecified asthma, uncomplicated; Z86.711 Personal history of pulmonary embolism; Z79.02 Long term (current) use of antithrombotics/antiplatelets; Z79.899 Other long term (current) drug therapy; Z79.01 Long term (current) use of anticoagulants
CPT/HCPCS: 36415; 80048; 80076; 81001; 83690; 83735; 84484; 85025; 87086; 93005; 96374; 96375; 99284; 99285; J1885; J2270

== ENCOUNTER → 2025-03-10 20:21 | Outpatient (BNV) | payer OTHER, SELFPAY | PROVIDERS: Emergency Provider Emergency Medicine Emergency Medical Services; Visit Provider Internal Medicine Cardiovascular Disease | DX: R10.31 Right lower quadrant pain (principal) | CPT/HCPCS: 93010 ==

== ENCOUNTER 2025-05-02 19:11 | Emergency (ER) | payer OTHER, SELFPAY ==
[2025-05-02 19:18] VITALS: BP 130/78; PULSE 73; O2SAT 97
[2025-05-02 19:20] VITALS: BP 162/75; PULSE 71; RESP 18; TEMP 36.7; O2SAT 96
--- NOTE | 2025-05-02 19:22 | PC.NURSE ---
Heather daughter phone # [phone] for transport home
[2025-05-02 19:24] VITALS: BP 162/75; PULSE 69; RESP 16; TEMP 36.6; O2SAT 97; BMI 19.1
[2025-05-02 20:03] VITALS: BP 140/78; PULSE 67; RESP 16; TEMP 36.9; O2SAT 96
[2025-05-02 20:12] LABS: Appearance Urine Clear; Glucose Urine UA Negative (Negative); PH 6.5 (5.0-9.0); Specific Gravity - Urine 1.015 (1.005-1.025); UMIC TRIGGER UA YES
--- NOTE | 2025-05-02 20:30 | PC.NURSE ---
Pt standing and ambulating independently to restroom on arrival.
[2025-05-02 21:03] LABS: Hematocrit 37.3 % (37.0-47.0); Hemoglobin 12.3 g/dl (12.0-16.0); Mean Corpuscular HGB Conc 33.0 g/dl (31.0-35.0); Mean Corpuscular Hemoglobin 29.1 pg (27.0-33.0); Mean Corpuscular Volume 88.2 fL (80.0-98.0); NRBC Abs Auto 0.000 X10*3/uL (0.0-0.012); NRBC Pct Auto 0.0 /100WBC (0.0-0.2); Platelet Count 185 X10*3/uL (160-400); Red Blood Count 4.23 X10*6/uL (4.20-5.50); White Blood Count 4.3 X10*3/uL (4.8-10.8)
[2025-05-02 21:18] LABS: Alanine Aminotransferase 22 U/L (0-31); Albumin Level 3.9 g/dL (3.5-5.0); Alkaline Phosphatase 150 U/L (39-117); Anion Gap 13 (12-20); Aspartate Amino Transferase 29 U/L (5-31); Blood Urea Nitrogen 23 mg/dL (9-16); Calcium 8.9 mg/dL (8.4-10.2); Carbon Dioxide 26 mmol/L (22-29); Chloride 108 mmol/L (96-108); Creatinine Clr Calc Pharmacy 37.3; Estimated Glomerular Filt Rate 54; Potassium 4.5 mmol/L (3.3-5.1); Sodium 142 mmol/L (135-145); Total Protein 6.8 g/dL (6.5-8.0)
[2025-05-02 22:23] VITALS: BP 152/70; PULSE 59; RESP 16; TEMP 36.3; O2SAT 96
--- NOTE | 2025-05-02 22:32 | ED.BACK ---
HPI - Back Pain/Injury General Chief Complaint: Back Pain/Injury Stated Complaint: Sciatica Pain Time Seen by Provider: 05/02/25 22:19 Source: patient and family Mode of arrival: ambulatory Limitations: no limitations History of Present Illness ED Provider: Dr. Sosa Hurt HPI Narrative: Patient comes in the emergency room complaining of recurrent sciatica pain. Patient states that she has lumbar back pain that radiates towards both legs. Patient denies any urinary continence or retention. Patient states this pain is very familiar to her. Patient has had multiple times sciatica flares. According to the patient's daughter, they are aware that the patient needs physical therapy, but the patient refuses to participate in PT sessions. Patient states that if she is lying down in bed without moving, she does not have any pain, but if she flexes her hips in certain ways, that is when the pain is triggered. Patient denies any injuries, any falls Related Data Home Medications ?Medication ?Instructions ?Recorded ?Confirmed benazepril 10 mg tablet 1 tab PO QAM 11/20/20 08/27/22 montelukast 10 mg tablet 1 tab PO BEDTIME 11/20/20 08/27/22 sertraline 100 mg tablet 200 mg PO DAILY 11/20/20 08/27/22 calcium 600 mg (as 1 tab PO BID 08/27/22 08/27/22 carbonate)-vitamin D3 5 mcg (200 unit) tablet fluticasone 500 mcg-salmeterol 50 1 puff inhalation BID 08/27/22 08/27/22 mcg/dose blistr powdr for inhalation fluticasone propionate 50 1 spray intranasal DAILY PRN 08/27/22 08/27/22 mcg/actuation nasal Allergy Symptoms spray,suspension isosorbide mononitrate 60 mg 1 tab PO DAILY 08/27/22 08/27/22 tablet,extended release 24 hr multivitamin-ferrous 1 tab PO DAILY 08/27/22 08/27/22 fumarate-folic acid 18 mg-400 mcg tablet (Certavite-Antioxidant) omeprazole 20 mg capsule,delayed 1 cap PO DAILY 08/27/22 08/27/22 release trazodone 100 mg tablet 100 mg PO BEDTIME PRN Insomnia 08/27/22 08/27/22 trazodone 100 mg tablet 200 mg PO BEDTIME 08/27/22 08/27/22 umeclidinium 62.5 mcg/actuation 1 puff inhalation DAILY 08/27/22 08/27/22 blister powder for inhalation (Incruse Ellipta) Previous Rx's ?Medication ?Instructions ?Recorded atorvastatin 80 mg tablet 80 mg PO BEDTIME #30 tabs 05/12/21 acetaminophen 500 mg tablet 500 mg PO Q6H PRN fever or pain 04/22/22 (Tylenol Extra Strength) #14 tabs cyclobenzaprine 5 mg tablet 5 mg PO Q8H PRN pain (scale score 04/22/22 7-10) 5 days #14 tabs metoclopramide HCl 5 mg tablet 5 mg PO Q6H PRN nausea and 08/06/22 (Reglan) vomiting #10 tabs aspirin 81 mg chewable tablet 81 mg PO DAILY #1 tab 08/28/22 heparin (porcine) 25,000 unit/250 25,000 unit (250 mL) continuous IV 08/28/22 mL in 0.45 % sodium chloride IV infusion .Q0M #6,000 mL soln heparin (porcine) 5,000 unit/mL 2,100 unit (0.42 mL) IVPUSH 08/28/22 injection solution PROTOCOL BOLUS PRN 40 Unit/Kg - Heparin Protocol #1 mL heparin (porcine) 5,000 unit/mL 4,100 unit (0.82 mL) IVPUSH 08/28/22 injection solution PROTOCOL BOLUS PRN 80 Unit/Kg - Heparin Protocol #1 mL metoprolol tartrate 25 mg tablet 12.5 mg (1/2 x 25 mg) PO Q6H #1 tab 08/28/22 morphine 4 mg/mL intravenous 2 mg IVPUSH Q4H PRN Pain, Severe 08/28/22 syringe (Pain Scale 7-10) #10 mL ondansetron HCl (PF) 4 mg/2 mL 4 mg (2 mL) IVPUSH Q8H PRN Nausea 08/28/22 injection solution And Vomiting #10 mL ondansetron 4 mg disintegrating 4 mg PO Q8H PRN nausea and 11/27/22 tablet vomiting #10 tabs acetaminophen 500 mg tablet 500 mg PO Q6H PRN fever or pain 12/30/22 (Tylenol Extra Strength) #14 tabs cyclobenzaprine 5 mg tablet 5 mg PO Q8H PRN pain (scale score 12/30/22 7-10) 5 days #14 tabs lidocaine 5 % topical patch 1 patch topical DAILY PRN pain #30 12/30/22 (Lidoderm) ea naproxen 500 mg tablet 500 mg PO BID PRN pain 7 days #20 12/30/22 tabs benzonatate 100 mg capsule 100 mg PO TID PRN cough 5 days #15 02/10/23 caps doxycycline hyclate 100 mg tablet 100 mg PO Q12H 7 days #14 tabs 02/10/23 acetaminophen 500 mg tablet 500 mg PO Q6H PRN fever or pain 03/22/23 (Tylenol Extra Strength) #14 tabs cyclobenzaprine 5 mg tablet 5 mg PO Q8H PRN pain (scale score 03/22/23 7-10) 5 days #14 tabs lidocaine 5 % topical patch 1 patch topical DAILY PRN pain #30 03/22/23 (Lidoderm) ea cefuroxime axetil 250 mg tablet 250 mg PO BID 7 days #14 tabs 03/24/23 tramadol 50 mg tablet 50 mg PO BID PRN pain #6 tabs 05/12/23 acetaminophen 325 mg capsule 325 mg PO Q4H PRN pain #30 caps 05/24/24 (Tylenol) lidocaine 5 % topical patch 1 patch topical DAILY PRN pain #15 05/24/24 ea methocarbamol 750 mg tablet 750 mg PO BEDTIME PRN pain #7 tabs 09/01/24 tramadol 50 mg tablet 50 mg PO BID PRN pain #7 tabs 05/02/25 Allergies Allergy/AdvReac Type Severity Reaction Status Date / Time No Known Allergies Allergy Verified 05/02/25 19:26 Review of Systems Review of Systems: Constitutional : No Weight loss, No Fever, No Chills, No Night Sweats, No Fatigue, No Malaise ENT/Mouth : No Hearing loss, No Ear Pain, No Nasal Congestion, No Sinus Pain, No Hoarseness, No sore throat, No Rhinorrhea, No Swallowing Difficulty Eyes: No Eye Pain, No Swelling, No Redness, No Foreign Body, No Discharge, No Vision Changes Cardiovascular : No Chest Pain, No SOB, No Dyspnea on Exertion, No Orthopnea, No Edema, No Palpitations Respiratory : No Cough, No Sputum, No Wheezing, No Smoke Exposure, No Dyspnea Gastrointestinal : No Nausea, No Vomiting, No Diarrhea, No Constipation, No abdominal Pain, No Hematochezia, No Melena Genitourinary : no irregular bleeding, No Dysuria, No Urinary Frequency, No Hematuria, No Urinary Incontinence, No Urgency, No Flank Pain, No Urinary Flow Changes, No Hesitancy Musculoskeletal : Complaining of chronic back pain, sciatica radiating towards both legs No Myalgias, No Joint Swelling Skin : No Skin Lesions, No rash Neuro : No Weakness, No Numbness, No Paresthesias, No Loss of Consciousness, No Dizziness, No Headache Psych : No Anxiety/Panic, No Depression, No SI/HI/AH/VH, No Social Issues, Heme/Lymph: No Bruising, No Bleeding,No Lymphadenopathy Endocrine : No Polyuria, No Polydipsia, No Temperature Intolerance [facility] Past Medical History Medical History Multinodular goiter (nontoxic) Pulmonary embolism Asthma Pancreatitis Diabetes Hypertension High cholesterol GERD (gastroesophageal reflux disease) Aortic insufficiency Depression NSTEMI (non-ST elevated myocardial infarction) Surgical History No history of previous surgery Family History Family History Father Hypertension Heart disease Mother Hypertension Heart disease Social History Social History Household Members: Family and Other Household Members Other:: daughter is student assistance counselor Housing: Apartment Do you presently have visiting nurse or other home services: No Alcohol intake: never Patient Tobacco Use Status: Never used Tobacco Smoked in Last 30 Days: No Second Hand Smoke Exposure: No Advance Directives: No Advance Directives Information Provided: No service: No Current occupational status: unemployed and disabled Physical Exam Exam: Exam: Appearance: Alert. Oriented X3. No acute distress. Well-appearing Eyes: Pupils equal, round and reactive to light. ENT: Pharynx normal. Neck: Normal inspection. Neck supple. No lymph nodes noted. No crepitus CVS: Normal heart rate and rhythm. Pulses normal. Normal S1 and S2 Respiratory: No respiratory distress. Breath sounds normal. No Wheezing. No rales Abdomen: Soft and nontender. No rigidity. No distention. Back: No pain to palpation over the cervical/thoracic/lumbar spine, no paraspinal pain muscle. Positive straight leg raise test on both legs Skin: Skin warm and dry. Normal skin color. Normal skin turgor. Extremities: No lower extremity edema. No Lacerations. No Rash Neuro: Oriented X 3. No motor deficit. No sensory deficit. Moving all extremities. No slurred speech. CN 2 through 12 grossly intact Psych: calm, cooperative, normal affect Vital Signs: Vital Signs: Last Vital Signs Temp 97.3 F 05/02/25 22:23 Pulse 59 05/02/25 22:23 Resp 16 05/02/25 22:23 BP 152/70 H 05/02/25 22:23 Pulse Ox 96 05/02/25 22:23 O2 Del Method Room Air 05/02/25 22:23 BMI result Body Mass Index 19.1 Medical Decision Making Medical Decision Making [place] Narrative: Patient has been here multiple times for sciatica. Patient states that she usually gets Toradol and morphine and that helps her very well. However, this time we will not give Toradol, patient was recently diagnosed with an NSTEMI and was started on Eliquis. Care in the emergency room, patient was given a dose of IM morphine and Decadron Patient states that she has Tylenol at home that does not help much, requesting something that is a bit stronger. I discussed with the patient that we can send her ghulam with a prescription of tramadol, however this is medication that may make her feel lightheaded/drowsy and should only be taken once she is in bed ideally to prevent falls, patient and her daughter agree with plan. Interpretation of labs: No significant abnormality in patient's hematology chemistry LFTs, negative UTI Differential Diagnosis Differential Diagnoses: The differential diagnosis associated with the presentation includes (Sciatica, musculoskeletal pain, contusion, UTI/pyelonephritis) Lab Data [place] Lab Attestation statement: I reviewed the patient's lab results. 05/02/25 20:55 05/02/25 20:55 Labs: Lab Results 05/02/25 05/02/25 Range/Units 20:06 20:55 WBC 4.3 L (4.8-10.8) X10*3/uL RBC 4.23 (4.20-5.50) X10*6/uL Hgb 12.3 (12.0-16.0) g/dl Hct 37.3 (37.0-47.0) % MCV 88.2 (80.0-98.0) fL MCH 29.1 (27.0-33.0) pg MCHC 33.0 (31.0-35.0) g/dl RDW 12.9 (11.0-16.0) % Plt Count 185 (160-400) X10*3/uL MPV 10.7 (9.4-12.3) fL Absolute Nucleated RBC 0.000 (0.0-0.012) X10*3/uL Nucleated RBC % (auto) 0.0 (0.0-0.2) /100WBC Sodium 142 (135-145) mmol/L Potassium 4.5 (3.3-5.1) mmol/L Chloride 108 (96-108) mmol/L Carbon Dioxide 26 (22-29) mmol/L Anion Gap 13 (12-20) BUN 23 H (9-16) mg/dL Creatinine 0.99 (0.5-1.4) mg/dL Estim Creat Clear Calc 37.3 Estimated GFR 54 Random Glucose 144 H (60-115) mg/dL Calcium 8.9 D (8.4-10.2) mg/dL Total Bilirubin 0.4 (0.0-1.0) mg/dL AST 29 (5-31) U/L ALT 22 (0-31) U/L Alkaline Phosphatase 150 H (39-117) U/L Total Protein 6.8 (6.5-8.0) g/dL Albumin 3.9 (3.5-5.0) g/dL Urine Color Yellow Urine Appearance Clear Urine pH 6.5 (5.0-9.0) Ur Specific [place] 1.015 (1.005-1.025) Urine Protein Negative (Neg-Trace) mg/dL Urine Glucose (UA) Negative (Negative) mg/dL Urine Ketones Negative (Negative) mg/dL Urine Blood Negative (Negative) Urine Nitrite Negative (Negative) Ur Leukocyte Esterase Small (1+) H (Negative) Urine RBC 0-2 (0-2) /HPF Urine WBC 0-5 (0-5) /HPF Ur Squamous Epith Cells 0-2 (0-2) /HPF Urine Bacteria None Seen (None Seen) Hyaline Casts 0-2 (0-2) /LPF Discharge Plan Discharge Clinical Impression: Sciatica Patient Disposition: Home, Self-Care Instructions: Sciatica (ED) Additional Instructions: Please follow-up with your primary care physician tomorrow. If you have any worsening or new symptoms, please return to the emergency room or call 911 Prescriptions: New tramadol 50 mg tablet 50 mg PO BID PRN (Reason: pain) Qty: 7 0RF No Action sertraline 100 mg tablet 200 mg PO DAILY montelukast 10 mg tablet 1 tab PO BEDTIME benazepril 10 mg tablet 1 tab PO QAM atorvastatin 80 mg Tablet 80 mg PO BEDTIME Qty: 30 0RF acetaminophen [Tylenol Extra Strength] 500 mg tablet 500 mg PO Q6H PRN (Reason: fever or pain) Qty: 14 0RF cyclobenzaprine 5 mg tablet 5 mg PO Q8H PRN (Reason: pain (scale score 7-10)) 5 Days Qty: 14 0RF metoclopramide HCl [Reglan] 5 mg tablet 5 mg PO Q6H PRN (Reason: nausea and vomiting) Qty: 10 0RF ondansetron 4 mg tablet,disintegrating 4 mg PO Q8H PRN (Reason: nausea and vomiting) Qty: 10 0RF calcium carbonate-vitamin D3 600 mg-5 mcg (200 unit) tablet 1 tab PO BID fluticasone propion-salmeterol 500-50 mcg/dose blister with device 1 puff inhalation BID Certavite-Antioxidant 18-400 mg-mcg tablet 1 tab PO DAILY Incruse Ellipta 62.5 mcg/actuation blister with device 1 puff inhalation DAILY isosorbide mononitrate 60 mg tablet extended release 24 hr 1 tab PO DAILY trazodone 100 mg tablet 200 mg PO BEDTIME omeprazole 20 mg capsule,delayed release(DR/EC) 1 cap PO DAILY trazodone 100 mg tablet 100 mg PO BEDTIME PRN (Reason: Insomnia) Rx Instructions: If addition to 200 mg if cannot sleep fluticasone propionate 50 mcg/actuation [place],Suspension 1 spray INTRANASAL DAILY PRN (Reason: Allergy Symptoms) Rx Instructions: administer into each nostril heparin(porcine) in 0.45% NaCl 25,000 unit/250 mL Parenteral Solution 25,000 unit continuous IV infusion .Q0M Qty: 6000 0RF aspirin 81 mg Tablet,Chewable 81 mg PO DAILY Qty: 1 0RF heparin (porcine) 5,000 unit/mL Solution 2,100 unit IVPUSH PROTOCOL BOLUS PRN (Reason: 40 Unit/Kg - Heparin Protocol) Qty: 1 0RF heparin (porcine) 5,000 unit/mL Solution 4,100 unit IVPUSH PROTOCOL BOLUS PRN (Reason: 80 Unit/Kg - Heparin Protocol) Qty: 1 0RF morphine 4 mg/mL Syringe 2 mg IVPUSH Q4H PRN (Reason: Pain, Severe (Pain Scale 7-10)) Qty: 10 0RF Protocol: Hold for RR < HOLD and contact provider for RR < (bpm): 12 Rx Instructions: Partial Fill upon patient request. ondansetron HCl (PF) 4 mg/2 mL Solution 4 mg IVPUSH Q8H PRN (Reason: Nausea And Vomiting) Qty: 10 0RF metoprolol tartrate 25 mg tablet 12.5 mg PO Q6H Qty: 1 0RF acetaminophen [Tylenol Extra Strength] 500 mg tablet 500 mg PO Q6H PRN (Reason: fever or pain) Qty: 14 0RF lidocaine [Lidoderm] 5 % adhesive patch,medicated 1 patch topical DAILY MDD remove after 12 hours PRN (Reason: pain) Qty: 30 0RF Rx Instructions: leave on most painful area for up to 12 hrs cyclobenzaprine 5 mg tablet 5 mg PO Q8H PRN (Reason: pain (scale score 7-10)) 5 Days Qty: 14 0RF cefuroxime axetil 250 mg tablet 250 mg PO BID 7 Days Qty: 14 0RF lidocaine 5 % adhesive patch,medicated 1 patch topical DAILY PRN (Reason: pain) Qty: 15 0RF Rx Instructions: leave on most painful area for up to 12 hrs acetaminophen [Tylenol] 325 mg capsule 325 mg PO Q4H PRN (Reason: pain) Qty: 30 0RF methocarbamol 750 mg tablet 750 mg PO BEDTIME PRN (Reason: pain) Qty: 7 0RF acetaminophen [Tylenol Extra Strength] 500 mg tablet 500 mg PO Q6H PRN (Reason: fever or pain) Qty: 14 0RF lidocaine [Lidoderm] 5 % adhesive patch,medicated 1 patch topical DAILY MDD remove after 12 hours PRN (Reason: pain) Qty: 30 0RF Rx Instructions: leave on most painful area for up to 12 hrs naproxen 500 mg tablet 500 mg PO BID PRN (Reason: pain) 7 Days Qty: 20 0RF cyclobenzaprine 5 mg tablet 5 mg PO Q8H PRN (Reason: pain (scale score 7-10)) 5 Days Qty: 14 0RF doxycycline hyclate 100 mg tablet 100 mg PO Q12H 7 Days Qty: 14 0RF benzonatate 100 mg capsule 100 mg PO TID PRN (Reason: cough) 5 Days Qty: 15 0RF tramadol 50 mg tablet 50 mg PO BID PRN (Reason: pain) Qty: 6 0RF Print Language: [place]
[2025-05-02 23:05] VITALS: BP 152/70; PULSE 59; RESP 16; TEMP 36.3; O2SAT 96
== END 2025-05-02 23:05 | disposition home or self-care (01) ==
PROVIDERS: Emergency Provider Emergency Medicine; PCP Family Medicine
DX: M54.42 Lumbago with sciatica, left side (principal); M54.41 Lumbago with sciatica, right side; Z79.899 Other long term (current) drug therapy
CPT/HCPCS: 36415; 80053; 81001; 85027; 96372; 99284; J1100; J2270

== ENCOUNTER 2025-06-23 15:21 | Emergency (ER) | payer OTHER, SELFPAY ==
--- NOTE | ~2025-06-23 | XR_ITS ---
CLINICAL HISTORY: chest pain 2 view chest x-ray Comparison: CR/FL/SR - XR CHEST 2 VIEWS - 09/01/24 19:37 EST Findings: Mild diffuse interstitial prominence in both lungs may represent mild pulmonary edema/fluid overload. Normal size heart. No acute fracture. IMPRESSION: Mild diffuse interstitial prominence in both lungs may represent mild pulmonary edema/fluid overload. This document has been electronically signed by: Eli Fry MD on 06/23/2025 18:22:46
--- NOTE | ~2025-06-23 | XR_ITS ---
CLINICAL HISTORY: pain 1 view abdomen Comparison: None provided Findings: No pneumoperitoneum or pneumatosis. No abnormal calcifications. Right upper quadrant multiple surgical clips, likely related to cholecystectomy. No acute fractures. IMPRESSION: No acute disease. This document has been electronically signed by: Eli Fry MD on 06/23/2025 21:53:56
--- NOTE | 2025-06-23 15:29 | ECG_ITS ---
Test Reason : CP Blood Pressure : */* mmHG Vent. Rate : 67 BPM Atrial Rate : 67 BPM P-R Int : 120 ms QRS Dur : 68 ms QT Int : 396 ms P-R-T Axes : 33 -6 39 degrees QTcB Int : 418 ms Normal sinus rhythm Low voltage QRS Borderline ECG When compared with ECG of 10-Mar-2025 20:33, No significant change was found Referred By: Generic ED Physician Electronically Signed By: RAGHU MULLINS
[2025-06-23 15:30] VITALS: BP 142/88; PULSE 92; O2SAT 97
[2025-06-23 15:32] VITALS: BP 131/66; PULSE 76; RESP 18; TEMP 36.4; O2SAT 94; BMI 21.0
--- NOTE | 2025-06-23 15:34 | ED.GENADULT ---
HPI - General Adult General Chief complaint: Chest Pain Stated complaint: Headache, Nausea, palpitations x4 days Time Seen by Provider: 06/23/25 19:14 Source: patient and family Limitations: language barrier History of Present Illness ED Provider: Kesha Wolf PA-C HPI narrative: 80-year-old female with a history of chronic dizziness, hypertension, hyperlipidemia, prior NSTEMI, presents with multiple complaints. Patient states she has been having substernal chest discomfort over the past 4 days, unable to describe the nature of her discomfort. Pain is worse with palpation of the chest wall. She denies trauma, new activity or exercise that could have precipitated your symptoms. Associated epigastric discomfort with nausea at times. Denies abdominal distention, active vomiting, constipation, inability to pass flatus or fever. Denies shortness of breath or recent cough or cold symptoms. Per the family, the patient is chronically dizzy, her symptoms are intermittent. Related Data Home Medications ?Medication ?Instructions ?Recorded ?Confirmed benazepril 10 mg tablet 1 tab PO QAM 11/20/20 08/27/22 montelukast 10 mg tablet 1 tab PO BEDTIME 11/20/20 08/27/22 sertraline 100 mg tablet 200 mg PO DAILY 11/20/20 08/27/22 calcium 600 mg (as 1 tab PO BID 08/27/22 08/27/22 carbonate)-vitamin D3 5 mcg (200 unit) tablet fluticasone 500 mcg-salmeterol 50 1 puff inhalation BID 08/27/22 08/27/22 mcg/dose blistr powdr for inhalation fluticasone propionate 50 1 spray intranasal DAILY PRN 08/27/22 08/27/22 mcg/actuation nasal Allergy Symptoms spray,suspension isosorbide mononitrate 60 mg 1 tab PO DAILY 08/27/22 08/27/22 tablet,extended release 24 hr multivitamin-ferrous 1 tab PO DAILY 08/27/22 08/27/22 fumarate-folic acid 18 mg-400 mcg tablet (Certavite-Antioxidant) omeprazole 20 mg capsule,delayed 1 cap PO DAILY 08/27/22 08/27/22 release trazodone 100 mg tablet 100 mg PO BEDTIME PRN Insomnia 08/27/22 08/27/22 trazodone 100 mg tablet 200 mg PO BEDTIME 08/27/22 08/27/22 umeclidinium 62.5 mcg/actuation 1 puff inhalation DAILY 08/27/22 08/27/22 blister powder for inhalation (Incruse Ellipta) Previous Rx's ?Medication ?Instructions ?Recorded atorvastatin 80 mg tablet 80 mg PO BEDTIME #30 tabs 05/12/21 acetaminophen 500 mg tablet 500 mg PO Q6H PRN fever or pain 04/22/22 (Tylenol Extra Strength) #14 tabs cyclobenzaprine 5 mg tablet 5 mg PO Q8H PRN pain (scale score 04/22/22 7-10) 5 days #14 tabs metoclopramide HCl 5 mg tablet 5 mg PO Q6H PRN nausea and 08/06/22 (Reglan) vomiting #10 tabs aspirin 81 mg chewable tablet 81 mg PO DAILY #1 tab 08/28/22 heparin (porcine) 25,000 unit/250 25,000 unit (250 mL) continuous IV 08/28/22 mL in 0.45 % sodium chloride IV infusion .Q0M #6,000 mL soln heparin (porcine) 5,000 unit/mL 2,100 unit (0.42 mL) IVPUSH 08/28/22 injection solution PROTOCOL BOLUS PRN 40 Unit/Kg - Heparin Protocol #1 mL heparin (porcine) 5,000 unit/mL 4,100 unit (0.82 mL) IVPUSH 08/28/22 injection solution PROTOCOL BOLUS PRN 80 Unit/Kg - Heparin Protocol #1 mL metoprolol tartrate 25 mg tablet 12.5 mg (1/2 x 25 mg) PO Q6H #1 tab 08/28/22 morphine 4 mg/mL intravenous 2 mg IVPUSH Q4H PRN Pain, Severe 08/28/22 syringe (Pain Scale 7-10) #10 mL ondansetron HCl (PF) 4 mg/2 mL 4 mg (2 mL) IVPUSH Q8H PRN Nausea 08/28/22 injection solution And Vomiting #10 mL ondansetron 4 mg disintegrating 4 mg PO Q8H PRN nausea and 11/27/22 tablet vomiting #10 tabs acetaminophen 500 mg tablet 500 mg PO Q6H PRN fever or pain 12/30/22 (Tylenol Extra Strength) #14 tabs cyclobenzaprine 5 mg tablet 5 mg PO Q8H PRN pain (scale score 12/30/22 7-10) 5 days #14 tabs lidocaine 5 % topical patch 1 patch topical DAILY PRN pain #30 12/30/22 (Lidoderm) ea naproxen 500 mg tablet 500 mg PO BID PRN pain 7 days #20 12/30/22 tabs benzonatate 100 mg capsule 100 mg PO TID PRN cough 5 days #15 02/10/23 caps doxycycline hyclate 100 mg tablet 100 mg PO Q12H 7 days #14 tabs 02/10/23 acetaminophen 500 mg tablet 500 mg PO Q6H PRN fever or pain 03/22/23 (Tylenol Extra Strength) #14 tabs cyclobenzaprine 5 mg tablet 5 mg PO Q8H PRN pain (scale score 03/22/23 7-10) 5 days #14 tabs lidocaine 5 % topical patch 1 patch topical DAILY PRN pain #30 03/22/23 (Lidoderm) ea cefuroxime axetil 250 mg tablet 250 mg PO BID 7 days #14 tabs 03/24/23 tramadol 50 mg tablet 50 mg PO BID PRN pain #6 tabs 05/12/23 acetaminophen 325 mg capsule 325 mg PO Q4H PRN pain #30 caps 05/24/24 (Tylenol) lidocaine 5 % topical patch 1 patch topical DAILY PRN pain #15 05/24/24 ea methocarbamol 750 mg tablet 750 mg PO BEDTIME PRN pain #7 tabs 09/01/24 tramadol 50 mg tablet 50 mg PO BID PRN pain #7 tabs 05/02/25 meclizine 25 mg tablet 25 mg PO BID PRN dizziness #10 tabs 06/23/25 sucralfate 100 mg/mL oral 10 ml PO QID PRN nausea #200 mL 06/23/25 suspension (Carafate) Allergies Allergy/AdvReac Type Severity Reaction Status Date / Time No Known Allergies Allergy Verified 06/23/25 15:37 Review of Systems Review of Systems: Yes all other systems are reviewed and are negative Constitutional: Constitutional: Denies fatigue, Denies fever(s) and Denies headache(s) ENT: Denies vertigo, Reports dizziness, Denies otalgia, Denies headache(s) and Denies neck pain Cardiovascular: Cardiovascular: Reports chest pain and Denies dyspnea Respiratory: Respiratory: Denies cough and Denies dyspnea Gastrointestinal: Gastrointestinal: Reports abdominal pain, Denies constipation, Denies diarrhea, Reports nausea and Denies vomiting Musculoskeletal: Musculoskeletal: Denies neck pain Neurologic: Denies vertigo, Reports dizziness and Denies headache(s) Endocrine: Endocrine: Denies fatigue [facility] Past Medical History Attestation statement: The following information was validated with the patient. 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 Housing: Apartment Do you presently have visiting nurse or other home services: No Alcohol intake: never Patient Tobacco Use Status: Never used Tobacco Second Hand Smoke Exposure: No Advance Directives: No Advance Directives Information Provided: No Do you have a plan to hurt others: No Plan service: No Current occupational status: unemployed and disabled Physical Exam ED Vital Signs: Vital Signs - 24 hr 06/23/25 15:32 06/23/25 18:50 Temperature 97.6 F Pulse Rate 76 66 Respiratory Rate 18 15 Blood Pressure 131/66 145/78 H Pulse Oximetry 94 96 Oxygen Delivery Method Room Air BMI result Body Mass Index 21.0 Const Other: Alert, well-appearing Orientation/consciousness: patient oriented x3 Eyes Other: No nystagmus Chest Other: Pain reproducible with palpation of chest wall no deformity no swelling no erythema Resp Other: Lungs clear to auscultation Effort & Inspection: normal respiratory effort Cardio Other: Normal peripheral perfusion GI Other: Soft, mild distention, no guarding to deep palpation Skin Other: Warm dry no rash Neuro Other: No ataxia General: patient oriented x3, gait normal, no focal motor deficits and CN's II-XI intact bilaterally Extrem Other: No limb ataxia Psych Other: Cooperative Course Course Course Narrative: Medical screening exam performed. Please refer to detailed history, exam, evaluation, and management by primary provider. Four day history of chest pain, fatigue. Hemodynamically stable. EKG labs and imaging ordered. JS Medications Administered Discontinued Medications Generic Name Dose Route Start Last Admin Trade Name Sania PRN Reason Stop Dose Admin Acetaminophen 975 mg 06/23/25 20:31 06/23/25 21:17 Acetaminophen 325 Mg Tablet PO 06/23/25 20:32 975 mg ONCE ONE Administration Meclizine HCl 25 mg 06/23/25 20:31 06/23/25 21:18 Meclizine Hcl 25 Mg Tablet PO 06/23/25 20:32 25 mg ONCE ONE Administration Sucralfate 1 gm 06/23/25 20:31 06/23/25 21:18 Sucralfate Oral Suspension 1 Gm/10 Ml Oral.Susp PO 06/23/25 20:32 1 gm ONCE ONE Administration Medical Decision Making Medical Decision Making MDM Narrative: 80-year-old female with a history of chronic dizziness, hypertension, hyperlipidemia, prior NSTEMI, presents with multiple complaints. Patient states she has been having substernal chest discomfort over the past 4 days, unable to describe the nature of her discomfort. Pain is worse with palpation of the chest wall. She denies trauma, new activity or exercise that could have precipitated your symptoms. Associated epigastric discomfort with nausea at times. Denies abdominal distention, active vomiting, constipation, inability to pass flatus or fever. Denies shortness of breath or recent cough or cold symptoms. Per the family, the patient is chronically dizzy, her symptoms are intermittent. Problem: Age, chronic dizziness, known coronary artery disease History: Per patient and family I have considered the following differential diagnoses: Vertigo, posterior circulation CVA, ACS, bowel obstruction, constipation, GERD, costochondritis, chest wall strain Plan: In regard to the dizziness, the patient is chronically dizzy, her symptoms are highly subjective, they are also not vertiginous in nature. At this point there was no indication to initiate stroke protocol. In regard to the chest pain, it is most consistent with chest wall pain, however ACS was considered, the patient has known coronary artery disease, in addition to screening labs cardiac enzymes obtained with a EKG and chest x-ray. Patient's pain distribution is also somewhat epigastric, she is complaining of some nausea, perhaps she is constipated, adding on a KUB. To note, she is not having any obstructive symptoms. We will be giving Carafate and meclizine. I have independently reviewed the following tests: Labs: No leukocytosis, not anemic, no electrolyte abnormality, troponin less than 2.7, urine not infected, COVID negative EKG: Normal sinus rhythm, rate of 67, no ischemic changes no ectopy when compared to prior study February of 2025, QTC 418 Chest x-ray: Findings: Mild diffuse interstitial prominence in both lungs may represent mild pulmonary edema/fluid overload. Normal size heart. No acute fracture. IMPRESSION: Mild diffuse interstitial prominence in both lungs may represent mild pulmonary edema/fluid overload. KUB:Findings: No pneumoperitoneum or pneumatosis. No abnormal calcifications. Right upper quadrant multiple surgical clips, likely related to cholecystectomy. No acute fractures. IMPRESSION: No acute disease. Differential Diagnosis Differential Diagnoses: The differential diagnosis associated with the presentation includes See medical decision-making Admission/Observation Consideration of admission/observation: Escalation of care including admission/observation considered Not applicable Lab Data MDM Lab Attestation statement: I reviewed the patient's lab results. 06/23/25 15:57 06/23/25 15:57 Labs: Lab Results 06/23/25 06/23/25 Range/Units 15:57 21:29 WBC 4.9 (4.8-10.8) X10*3/uL RBC 4.33 (4.20-5.50) X10*6/uL Hgb 12.6 (12.0-16.0) g/dl Hct 37.5 (37.0-47.0) % MCV 86.6 (80.0-98.0) fL MCH 29.1 (27.0-33.0) pg MCHC 33.6 (31.0-35.0) g/dl RDW 13.0 (11.0-16.0) % Plt Count 196 (160-400) X10*3/uL MPV 10.7 (9.4-12.3) fL Immature Gran % (Auto) 0.4 (0.0-0.4) % Neut % (Auto) 49.8 (45-73) % Lymph % (Auto) 33.6 (20-40) % [place] % (Auto) 10.9 (2-11) % Eos % (Auto) 4.7 H (0-4) % Baso % (Auto) 0.6 (0-2) % Lymph # (Auto) 1.6 (1.2-4.9) X10*3/uL [place] # (Auto) 0.5 (0.1-1.2) X10*3/uL Eos # (Auto) 0.2 (0.0-0.4) X10*3/uL Baso # (Auto) 0.0 (0.0-0.2) X10*3/uL Abs Immat Gran (auto) 0.02 (0.00-0.03) X10*3/uL Absolute Neuts (auto) 2.4 (2.0-8.3) x10*3/uL Absolute Nucleated RBC 0.000 (0.0-0.012) X10*3/uL Nucleated RBC % (auto) 0.0 (0.0-0.2) /100WBC Sodium 138 (135-145) mmol/L Potassium 4.7 (3.3-5.1) mmol/L Chloride 107 (96-108) mmol/L Carbon Dioxide 25 (22-29) mmol/L Anion Gap 11 L (12-20) BUN 27 H (9-16) mg/dL Creatinine 1.03 (0.5-1.4) mg/dL Estim Creat Clear Calc 34.4 Estimated GFR 52 Random Glucose 119 H (60-115) mg/dL Calcium 9.3 (8.4-10.2) mg/dL Total Bilirubin 0.4 (0.0-1.0) mg/dL AST 29 (5-31) U/L ALT 23 (0-31) U/L Alkaline Phosphatase 151 H (39-117) U/L Troponin I High Sens < 2.7 (<3.5-17.0) ng/L Total Protein 6.8 (6.5-8.0) g/dL Albumin 4.1 (3.5-5.0) g/dL Lipase 37 (8-78) U/L Urine Color Yellow Urine Appearance Clear Urine pH 6.0 (5.0-9.0) Ur Specific [place] 1.010 (1.005-1.025) Urine Protein Negative (Neg-Trace) mg/dL Urine Glucose (UA) Negative (Negative) mg/dL Urine Ketones Negative (Negative) mg/dL Urine Blood Negative (Negative) Urine Nitrite Negative (Negative) Ur Leukocyte Esterase Trace H (Negative) Urine RBC 0-2 (0-2) /HPF Urine WBC 0-5 (0-5) /HPF Ur Squamous Epith Cells 0-2 (0-2) /HPF Urine Bacteria None Seen (None Seen) Hyaline Casts 0-2 (0-2) /LPF COVID-19 (HEMA) Negative (Negative) COVID-19 Clin Com See Note Independent Interpretation I performed an independent interpretation of an: EKG Radiology Impression Discussion of test interpretation with radiology: I have reviewed the radiologist's reading. Discharge Plan Discharge Clinical Impression: Atypical chest pain, Constipation, Nausea, Dizziness, nonspecific Patient Disposition: Home, Self-Care Instructions: Constipation (ED), Dizziness (ED), Chest Wall Pain (ED) Additional Instructions: All of your screening labs including a cardiac enzymes were normal. Your urine is not infected. There were no concerning changes on the EKG in the chest x-ray does not reveal any acute pathology. The abdominal film reveals that you are constipated. See home care instructions. Use [id number] Colace twice a day, use [id number] MiraLax 2 to 3 times a day, until your bowel habits self regulate. Use the meclizine as needed for dizziness Use the Carafate as needed for upper abdominal discomfort. Follow up with your primary care provider as needed. Prescriptions: New sucralfate [Carafate] 100 mg/mL suspension 10 ml PO QID PRN (Reason: nausea) Qty: 200 0RF Rx Instructions: swish in mouth and swallow; use after food/drink meclizine 25 mg tablet 25 mg PO BID PRN (Reason: dizziness) Qty: 10 0RF No Action sertraline 100 mg tablet 200 mg PO DAILY montelukast 10 mg tablet 1 tab PO BEDTIME benazepril 10 mg tablet 1 tab PO QAM atorvastatin 80 mg Tablet 80 mg PO BEDTIME Qty: 30 0RF acetaminophen [Tylenol Extra Strength] 500 mg tablet 500 mg PO Q6H PRN (Reason: fever or pain) Qty: 14 0RF cyclobenzaprine 5 mg tablet 5 mg PO Q8H PRN (Reason: pain (scale score 7-10)) 5 Days Qty: 14 0RF metoclopramide HCl [Reglan] 5 mg tablet 5 mg PO Q6H PRN (Reason: nausea and vomiting) Qty: 10 0RF ondansetron 4 mg tablet,disintegrating 4 mg PO Q8H PRN (Reason: nausea and vomiting) Qty: 10 0RF calcium carbonate-vitamin D3 600 mg-5 mcg (200 unit) tablet 1 tab PO BID fluticasone propion-salmeterol 500-50 mcg/dose blister with device 1 puff inhalation BID Certavite-Antioxidant 18-400 mg-mcg tablet 1 tab PO DAILY Incruse Ellipta 62.5 mcg/actuation blister with device 1 puff inhalation DAILY isosorbide mononitrate 60 mg tablet extended release 24 hr 1 tab PO DAILY trazodone 100 mg tablet 200 mg PO BEDTIME omeprazole 20 mg capsule,delayed release(DR/EC) 1 cap PO DAILY trazodone 100 mg tablet 100 mg PO BEDTIME PRN (Reason: Insomnia) Rx Instructions: If addition to 200 mg if cannot sleep fluticasone propionate 50 mcg/actuation [place],Suspension 1 spray INTRANASAL DAILY PRN (Reason: Allergy Symptoms) Rx Instructions: administer into each nostril heparin(porcine) in 0.45% NaCl 25,000 unit/250 mL Parenteral Solution 25,000 unit continuous IV infusion .Q0M Qty: 6000 0RF aspirin 81 mg Tablet,Chewable 81 mg PO DAILY Qty: 1 0RF heparin (porcine) 5,000 unit/mL Solution 2,100 unit IVPUSH PROTOCOL BOLUS PRN (Reason: 40 Unit/Kg - Heparin Protocol) Qty: 1 0RF heparin (porcine) 5,000 unit/mL Solution 4,100 unit IVPUSH PROTOCOL BOLUS PRN (Reason: 80 Unit/Kg - Heparin Protocol) Qty: 1 0RF morphine 4 mg/mL Syringe 2 mg IVPUSH Q4H PRN (Reason: Pain, Severe (Pain Scale 7-10)) Qty: 10 0RF Protocol: Hold for RR < HOLD and contact provider for RR < (bpm): 12 Rx Instructions: Partial Fill upon patient request. ondansetron HCl (PF) 4 mg/2 mL Solution 4 mg IVPUSH Q8H PRN (Reason: Nausea And Vomiting) Qty: 10 0RF metoprolol tartrate 25 mg tablet 12.5 mg PO Q6H Qty: 1 0RF acetaminophen [Tylenol Extra Strength] 500 mg tablet 500 mg PO Q6H PRN (Reason: fever or pain) Qty: 14 0RF lidocaine [Lidoderm] 5 % adhesive patch,medicated 1 patch topical DAILY MDD remove after 12 hours PRN (Reason: pain) Qty: 30 0RF Rx Instructions: leave on most painful area for up to 12 hrs cyclobenzaprine 5 mg tablet 5 mg PO Q8H PRN (Reason: pain (scale score 7-10)) 5 Days Qty: 14 0RF cefuroxime axetil 250 mg tablet 250 mg PO BID 7 Days Qty: 14 0RF lidocaine 5 % adhesive patch,medicated 1 patch topical DAILY PRN (Reason: pain) Qty: 15 0RF Rx Instructions: leave on most painful area for up to 12 hrs acetaminophen [Tylenol] 325 mg capsule 325 mg PO Q4H PRN (Reason: pain) Qty: 30 0RF methocarbamol 750 mg tablet 750 mg PO BEDTIME PRN (Reason: pain) Qty: 7 0RF acetaminophen [Tylenol Extra Strength] 500 mg tablet 500 mg PO Q6H PRN (Reason: fever or pain) Qty: 14 0RF lidocaine [Lidoderm] 5 % adhesive patch,medicated 1 patch topical DAILY MDD remove after 12 hours PRN (Reason: pain) Qty: 30 0RF Rx Instructions: leave on most painful area for up to 12 hrs naproxen 500 mg tablet 500 mg PO BID PRN (Reason: pain) 7 Days Qty: 20 0RF cyclobenzaprine 5 mg tablet 5 mg PO Q8H PRN (Reason: pain (scale score 7-10)) 5 Days Qty: 14 0RF doxycycline hyclate 100 mg tablet 100 mg PO Q12H 7 Days Qty: 14 0RF benzonatate 100 mg capsule 100 mg PO TID PRN (Reason: cough) 5 Days Qty: 15 0RF tramadol 50 mg tablet 50 mg PO BID PRN (Reason: pain) Qty: 6 0RF tramadol 50 mg tablet 50 mg PO BID PRN (Reason: pain) Qty: 7 0RF Discharge Date/Time: 06/23/25 23:53 Print Language: Citizen [place]
--- NOTE | 2025-06-23 15:53 | MHC.EDTECH ---
delay ekg due to 4 chest pain ekg back to back nurse aware
--- OUTSIDE RECORDS SUMMARY | 2025-06-23 15:53 | XMS_ITS | Clinical Summary ---
Author Organization [facility] Address [address] [place] [address] Care Team Providers Care Physical Integration Practitioner Name Role Phone Tiffany Kent MD Primary Care Provider [phone] Allergies No known active allergies Medications aspirin 81 MG chewable tabletIndication s:Chest pain,Depressive disorder Chew 1 tablet (81 mg total) daily. 30 tablet 3 11/13/2024 Active isosorbide mononitrate (IMDUR) 60 MG 24 [...] daily during hospitalization for chest pain 08/2022 Social History Tobacco Use Types Packs/Day Years Used Date Smoking Tobacco: Never Smokeless Tobacco: Never Tobacco Cessation:Counseling Given: Not Answered [facility] Utilities Answer Date Recorded In the past 12 months has e [employer], [employer], [employer], or water [employer] threatened to shut off services in your [...] any time in the past 12 m [facility], were you homeless or living in a longterm (including now)? No 11/11/2024 Comments Unknown Sex [...] 73 11/12/2024 8:20 AM EST Temperature 36.2 C (97.2 F) 11/12/2024 7:50 AM EST Respiratory Rate 18 11/12/2024 7:50 AM EST Oxygen Saturation 96% 11/12/2024 7:50 AM EST Inhaled Oxygen Concentration - - Weight 53 kg (116 lb 13.5 oz) 11/11/2024 6:14 AM EST Height - - Body Mass Index - - Plan of Treatment Health Maintenance Due Date Last Done Comments Advance Care Planning 1945 DTaP/Tdap/Td Vaccines (1 - Tdap) 01/16/1964 Pneumococcal Vaccines 50+ (1 of 2 - PCV) 01/16/1964 Zoster (Shingles) Vaccine (1 of 2) 1995 DXA Bone Density (Females,Ages 65 and older) 2010 RSV Vaccine 60 years and older and Patients (1 - 1-dose 75+ series) 01/16/2020 Influenza Vaccine 04/20/2025 07/19/2024, , 06/25/2020, Additional history exists COVID-19 Vaccine ( season) 2025 09/04/2021, 12/13/2020, 11/15/2020 Hepatitis B Vaccines Aged Out No long er eligible based on patient's age to complete this topic Insurance [facility] [place] OUT OF NETWORK Advance Directives * Full Code (Latest Code Status on File) Date Activated Date Inactivated Comments 11/10/2024 9:12 AM Care Teams Physical Integration Practitioner Relationship Specialty Start Date End Date Tiffany Kent MD [address] [place] [id number] PCP - General Family Medicine 11/10/24
--- OUTSIDE RECORDS SUMMARY | 2025-06-23 15:53 | XMS_ITS ---
Author Name [facility] Organization Unknown Results Test Name/Text Value Interpretation Date Range Source LMWH PPP Wicker Worker-aCnc 0.44 IU/mL Normal 11/12/2024 [facility] Anticoagulant IV HEPARIN, UNFRACTIONATED Normal 11/12/2024 [facility] Potassium SerPl-sCnc 5.1 mmol/L Normal 11/12/2024 3.4 - 5.3 H[facility]CT CO2 SerPl-sCnc 20.0 mmol/L Below low normal 11/12/2024 22 - 33 [facility] BUN SerPl-mCnc 26.0 mg/dL Above high normal 11/12/2024 8 - 2 1 H[facility]CT GFR/BSA.pred SerPlBld LTE-IFW-[id number] 57.0 Below low normal 11/12/2024 59 - HHCCT BUN/Creat SerPl 26.0 Ratio Above high normal 11/12/2024 10 - 25 H[facility]CT Sodium SerPl-sCnc 140.0 mmol/L Normal 11/12/2024 136 - 14 5 H[facility]CT Creat SerPl-mCnc 1.0 mg/dL Normal 11/12/2024 0.4 - 1.1 HH CCT Anion Gap Bld-sCnc 11.0 Normal 11/12/2024 7 - 17 [facility] Glucose SerPl-mCnc 111.0 mg/dL Above high normal 11/12/2024 65 - 99 H[facility]CT Calcium SerPl-mCnc 9.1 mg/dL Normal 11/12/2024 8.7 - 10.5 H[facility]CT Chloride SerPl-sCnc 109.0 mmol/L Above high normal 98 - 107 H[facility]CT Troponin T SerPl-mCnc 274.0 ng/L Critically high 11/12/2024 - 15 H[facility]CT Delta NO PREVIOUS RESULT Normal 11/12/2024 - 3 H[facility]CT Magnesium SerPl-mCnc 2.2 mg/dL Normal 11/12/2024 1.6 - 2.7 H[facility]CT Lymphocytes/leuk NFr Bld Auto 40.3 % Normal 11/12/2024 H[facility]CT Imm Granulocytes num Bld Auto 0.02 Thou/uL Normal 11/12/2024 0 - 0.1 H[facility]CT Lymphocytes num Bld Auto 2.19 Thou/uL Normal 11/12/2024 1.5 - 4.5 H[facility]CT Neutrophils/leuk NFr Bld Auto 39.4 % Normal 11/12/2024 H[facility]CT Eosinophil num Bld Auto 0.34 Thou/uL Normal 11/12/2024 0 - 0.7 H[facility]CT Basophils num Bld Auto 0.04 Thou/uL Normal 11/12/2024 0 - 0.2 HHCCT MCHC RBC Auto-mCnc 31.9 g/dL Normal 11/12/2024 30 - 36 HHCCT Hct VFr Bld Auto 38.9 % Normal 11/12/2024 35 - 47 HH CCT Eosinophil/leuk NFr Bld Auto 6.3 % Normal 11/12/2024 H[facility]CT Neutrophils num Bld Auto 2.14 Thou/uL Normal 11/12/2024 2 - 7.5 HHCCT MCV RBC Auto 89.0 fL Normal 11/12/2024 80 - 100 H[facility]CT Platelet num Bld Auto 191.0 Thou/uL Normal 11/12/2024 150 - 450 HHCCT WBC num Bld Auto 5.4 Thou/uL Normal 11/12/2024 4 - 11 H[facility]CT Imm Granulocytes/leuk NFr Bld Auto 0.4 % Normal 11/12/2024 H[facility]CT Basophils/leuk NFr Bld Auto 0.7 % Normal 11/12/2024 H[facility]CT Hgb Bld-mCnc 12.4 g/dL Normal 11/12/2024 11.7 - 15.7 HHCC T Monocytes/leuk NFr Bld Auto 12.9 % Normal 11/12/2024 H[facility]CT Monocytes num Bld Auto 0.7 Thou/uL Normal 11/12/2024 0.2 - 1.5 HHCCT RDW RBC Auto-Rto 13.6 % Normal 11/12/2024 11.5 - 14.5 HHCCT MCH RBC Qn Auto 28.4 pg Normal 11/12/2024 27 - [address] RBC num Bld Auto 4.36 Mil/uL Normal 11/12/2024 4 - 5.4 HHCCT PMV Bld Auto 11.2 fL Normal 11/12/2024 7.5 - 12.5 H[facility]CT LMWH PPP Wicker Worker-aCnc 0.44 IU/mL Normal 11/12/2024 HHCCT Anticoagulant IV HEPARIN, UNFRACTIONATED Normal 11/12/2024 H[facility]CT LMWH PPP Wicker Worker-aCnc 0.26 IU/mL Normal 11/12/2024 H[facility]CT Anticoagulant IV HEPARIN, UNFRACTIONATED Normal 11/11/2024 HHCCT LMWH PPP Wicker Worker-aCnc 0.28 IU/mL Normal 11/11/2024 H[facility]CT Anticoagulant IV HEPARIN, UNFRACTIONATED Normal 11/11/2024 HHCCT Potassium SerPl-sCnc 4.2 mmol/L Normal 11/11/2024 3.4 - 5.3 HHCCT CO2 SerPl-sCnc 24.0 mmol/L Normal 11/11/2024 22 - 33 HH CCT BUN/Creat SerPl 20.0 Ratio Normal 11/11/2024 10 - 25 HH CCT Calcium SerPl-mCnc 9.2 mg/dL Normal 11/11/2024 8.7 - 10.5 HHCCT Sodium SerPl-sCnc 142.0 mmol/L Normal 11/11/2024 136 - 14 5 HHCCT BUN SerPl-mCnc 18.0 mg/dL Normal 11/11/2024 8 - [address] Glucose SerPl-mCnc 99.0 mg/dL Normal 11/11/2024 65 - 99 HHCCT Creat SerPl-mCnc 0.9 mg/dL Normal 11/11/2024 0.4 - 1.1 HH CCT Chloride SerPl-sCnc 108.0 mmol/L Above high normal 98 - 107 HHCCT Anion Gap Bld-sCnc 10.0 Normal 11/11/2024 7 - 17 HHCCT GFR/BSA.pred SerPlBld MGT-[id number] 65.0 Normal 11/11/2024 59 - HHCCT Magnesium SerPl-mCnc 2.3 mg/dL Normal 11/11/2024 1.6 - 2.7 HHCCT LMWH PPP Wicker Worker-aCnc 0.27 IU/mL Normal 11/11/2024 HHCCT Anticoagulant IV HEPARIN, UNFRACTIONATED Normal 11/11/2024 HHCCT Imm Granulocytes num Bld Auto 0.01 Thou/uL Normal 11/11/2024 0 - 0.1 HHCCT Lymphocytes/leuk NFr Bld Auto 41.9 % Normal 11/11/2024 HHCCT RDW RBC Auto-Rto 13.4 % Normal 11/11/2024 11.5 - 14.5 HHCCT Neutrophils num Bld Auto 1.58 Thou/uL Below low normal 11/11/2024 2 - 7.5 HHCCT Neutrophils/leuk NFr Bld Auto 39.0 % Normal 11/11/2024 HHCCT MCHC RBC Auto-mCnc 31.9 g/dL Normal 11/11/2024 30 - 36 HHCCT Hct VFr Bld Auto 42.7 % Normal 11/11/2024 35 - 47 HH CCT Hgb Bld-mCnc 13.6 g/dL Normal 11/11/2024 11.7 - 15.7 HHCC T Imm Granulocytes/leuk NFr Bld Auto 0.2 % Normal 11/11/2024 HHCCT RBC num Bld Auto 4.75 Mil/uL Normal 11/11/2024 4 - 5.4 HHCCT Basophils/leuk NFr Bld Auto 0.7 % Normal 11/11/2024 HHCCT Eosinophil/leuk NFr Bld Auto 3.2 % Normal 11/11/2024 HHCCT Basophils num Bld Auto 0.03 Thou/uL Normal 11/11/2024 0 - 0.2 HHCCT Monocytes/leuk NFr Bld Auto 15.0 % Normal 11/11/2024 HHCCT MCH RBC Qn Auto 28.6 pg Normal 11/11/2024 27 - [address] PMV Bld Auto 11.4 fL Normal 11/11/2024 7.5 - 12.5 HHCCT Eosinophil num Bld Auto 0.13 Thou/uL Normal 11/11/2024 0 - 0.7 HHCCT Platelet num Bld Auto 215.0 Thou/uL Normal 11/11/2024 150 - 450 HHCCT MCV RBC Auto 90.0 fL Normal 11/11/2024 80 - 100 HHCCT WBC num Bld Auto 4.1 Thou/uL Normal 11/11/2024 4 - 11 HHCCT Monocytes num Bld Auto 0.61 Thou/uL Normal 11/11/2024 0.2 - 1.5 HHCCT Lymphocytes num Bld Auto 1.7 Thou/uL Normal 11/11/2024 1.5 - 4.5 HHCCT LMWH PPP Wicker Worker-aCnc 0.4 IU/mL Normal 11/11/2024 HHCCT Anticoagulant IV HEPARIN, UNFRACTIONATED Normal 11/11/2024 H[facility]CT Delta 180.0 Above high normal 11/11/2024 - 3 H HCCT Troponin T SerPl-mCnc 327.0 ng/L Critically high 11/11/2024 - 15 HHCCT LMWH PPP Wicker Worker-aCnc 0.74 IU/mL Normal 11/10/2024 HHCCT Anticoagulant IV HEPARIN, UNFRACTIONATED Normal 11/10/2024 HHCCT Delta 39.0 Above high normal 11/10/2024 - 3 H HCCT Troponin T SerPl-mCnc 186.0 ng/L Critically high 11/10/2024 - 15 HHCCT Troponin T SerPl-mCnc 139.0 ng/L Critically high 11/10/2024 - 15 HHCCT Delta 8.0 Above high normal 11/10/2024 - 3 H HCCT GFR/BSA.pred SerPlBld QRR-HVF-IsQEet 75.0 Normal 11/10/2024 59 - HHCCT Chloride SerPl-sCnc 105.0 mmol/L Normal 11/10/2024 98 - 1 07 HHCCT Creat SerPl-mCnc 0.8 mg/dL Normal 11/10/2024 0.4 - 1.1 HH CCT BUN/Creat SerPl 23.0 Ratio Normal 11/10/2024 10 - 25 HH CCT AST SerPl-cCnc 32.0 U/L Normal 11/10/2024 10 - 50 HHCC T ALP SerPl-cCnc 117.0 U/L Normal 11/10/2024 32 - 122 HHCC T CO2 SerPl-sCnc 25.0 mmol/L Normal 11/10/2024 22 - 33 HH CCT Bilirub SerPl-mCnc 0.5 mg/dL Normal 11/10/2024 0.2 - 1 HHCCT ALT SerPl-cCnc 23.0 U/L Normal 11/10/2024 10 - 50 HHCC T BUN SerPl-mCnc 18.0 mg/dL Normal 11/10/2024 8 - [address] Globulin Ser Calc-mCnc 2.6 g/dL Normal 11/10/2024 1.5 - 3.9 HHCCT Anion Gap Bld-sCnc 9.0 Normal 11/10/2024 7 - 17 HHCCT Calcium SerPl-mCnc 8.8 mg/dL Normal 11/10/2024 8.7 - 10.5 HHCCT Prot SerPl-mCnc 6.2 g/dL Below low normal 11/10/2024 6.3 - 8.3 HHCCT Glucose SerPl-mCnc 98.0 mg/dL Normal 11/10/2024 65 - 99 HHCCT Albumin SerPl-mCnc 3.6 g/dL Normal 11/10/2024 3.4 - 4.8 HHCCT Sodium SerPl-sCnc 139.0 mmol/L Normal 11/10/2024 136 - 14 5 HHCCT Albumin/Glob SerPl 1.4 Ratio Normal 11/10/2024 1 - 3 HHCCT Potassium SerPl-sCnc 4.1 mmol/L Normal 11/10/2024 3.4 - 5.3 HHCCT Delta NO PREVIOUS RESULT Normal 11/10/2024 - 3 HHCCT Troponin T SerPl-mCnc 147.0 ng/L Critically high 11/10/2024 - 15 HHCCT LMWH PPP Wicker Worker-aCnc 1.45 IU/mL Normal 11/10/2024 HHCCT Anticoagulant Information not given Normal 11/10/2024 HHCCT INR PPP 1.2 Normal 11/10/2024 HHCCT Prothrombin time 14.4 seconds Above high normal 11/10/2024 1 0 - 13.5 HHCCT Anticoagulant IV HEPARIN, UNFRACTIONATED Normal 11/10/2024 HHCCT aPTT PPP 136.0 seconds Critically high 11/10/2024 25 - 36 HHCCT Anticoagulant IV HEPARIN, UNFRACTIONATED Normal 11/10/2024 HHCCT RDW RBC Auto-Rto 13.3 % Normal 11/10/2024 11.5 - 14.5 HHCCT Imm Granulocytes/leuk NFr Bld Auto 0.2 % Normal 11/10/2024 HHCCT Monocytes/leuk NFr Bld Auto 10.3 % Normal 11/10/2024 HHCCT WBC num Bld Auto 6.5 Thou/uL Normal 11/10/2024 4 - 11 HHCCT Hgb Bld-mCnc 12.6 g/dL Normal 11/10/2024 11.7 - 15.7 HHCC T Lymphocytes num Bld Auto 2.48 Thou/uL Normal 11/10/2024 1.5 - 4.5 HHCCT Eosinophil/leuk NFr Bld Auto 2.1 % Normal 11/10/2024 HHCCT Hct VFr Bld Auto 39.4 % Normal 11/10/2024 35 - 47 HH CCT RBC num Bld Auto 4.39 Mil/uL Normal 11/10/2024 4 - 5.4 HHCCT MCH RBC Qn Auto 28.7 pg Normal 11/10/2024 27 - [address] Basophils/leuk NFr Bld Auto 0.5 % Normal 11/10/2024 HHCCT Neutrophils num Bld Auto 3.2 Thou/uL Normal 11/10/2024 2 - 7.5 HHCCT Basophils num Bld Auto 0.03 Thou/uL Normal 11/10/2024 0 - 0.2 HHCCT PMV Bld Auto 11.3 fL Normal 11/10/2024 7.5 - 12.5 HHCCT MCHC RBC Auto-mCnc 32.0 g/dL Normal 11/10/2024 30 - 36 HHCCT Monocytes num Bld Auto 0.67 Thou/uL Normal 11/10/2024 0.2 - 1.5 HHCCT Imm Granulocytes num Bld Auto 0.01 Thou/uL Normal 11/10/2024 0 - 0.1 HHCCT Eosinophil num Bld Auto 0.14 Thou/uL Normal 11/10/2024 0 - 0.7 HHCCT Neutrophils/leuk NFr Bld Auto 48.9 % Normal 11/10/2024 HHCCT Platelet num Bld Auto 202.0 Thou/uL Normal 11/10/2024 150 - 450 HHCCT MCV RBC Auto 90.0 fL Normal 11/10/2024 80 - 100 H[facility]CT Lymphocytes/leuk NFr Bld Auto 38.0 % Normal [facility] En[facility] Encounter Type Encounter Reason Primary Diagnosis Location Date Inpatient Chest pain, unspecified Chest pain, unspecified [facility] 11/10/2024 Care Team Organization Name Specialty Phone Email Start Date End [facility] 11/29/2024 12/18/2024 [facility] 11/10/2024 [facility] 11/10/2024
[2025-06-23 16:13] LABS: MANUAL DIFF FLAG NO
[2025-06-23 16:16] LABS: Hematocrit 37.5 % (37.0-47.0); Hemoglobin 12.6 g/dl (12.0-16.0); Imm Gran Abs Auto 0.02 X10*3/uL (0.00-0.03); Imm Gran Pct Auto 0.4 % (0.0-0.4); Lymphocytes Absolute Auto 1.6 X10*3/uL (1.2-4.9); Mean Corpuscular HGB Conc 33.6 g/dl (31.0-35.0); Mean Corpuscular Hemoglobin 29.1 pg (27.0-33.0); Mean Corpuscular Volume 86.6 fL (80.0-98.0); NRBC Abs Auto 0.000 X10*3/uL (0.0-0.012); NRBC Pct Auto 0.0 /100WBC (0.0-0.2); Platelet Count 196 X10*3/uL (160-400); Red Blood Count 4.33 X10*6/uL (4.20-5.50); White Blood Count 4.9 X10*3/uL (4.8-10.8)
[2025-06-23 16:27] LABS: COVID-19 Test Negative (Negative); IDNOW Serial# 55D5AD1C
[2025-06-23 16:32] LABS: Alanine Aminotransferase 23 U/L (0-31); Albumin Level 4.1 g/dL (3.5-5.0); Alkaline Phosphatase 151 U/L (39-117); Anion Gap 11 (12-20); Aspartate Amino Transferase 29 U/L (5-31); Blood Urea Nitrogen 27 mg/dL (9-16); Calcium 9.3 mg/dL (8.4-10.2); Carbon Dioxide 25 mmol/L (22-29); Chloride 107 mmol/L (96-108); Creatinine Clr Calc Pharmacy 34.4; Estimated Glomerular Filt Rate 52; Lipase 37 U/L (8-78); Potassium 4.7 mmol/L (3.3-5.1); Sodium 138 mmol/L (135-145); Total Protein 6.8 g/dL (6.5-8.0)
[2025-06-23 16:38] LABS: Troponin-I High Sensitivity < 2.7 ng/L (<3.5-17.0)
[2025-06-23 18:50] VITALS: BP 145/78; PULSE 66; RESP 15; O2SAT 96
--- NOTE | 2025-06-23 18:57 | PC.NURSE ---
Pr comes to ED with c/o chest pain Blood labs, EKG and serology completed in triage area. 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 VSS and Pt resting quietly with family at the bedside. Awaiting ED provider.
[2025-06-23] MEDS: Sucralfate Oral Suspension 1 GM/10 ML ORAL.SUSP PO (21:18)
[2025-06-23 21:39] LABS: Appearance Urine Clear; Glucose Urine UA Negative (Negative); PH 6.0 (5.0-9.0); Specific Gravity - Urine 1.010 (1.005-1.025); UMIC TRIGGER UA YES
== END 2025-06-23 23:53 | disposition home or self-care (01) ==
PROVIDERS: Physician Assistant; Emergency Provider Emergency Medicine; PCP Family Medicine
DX: R51.9 Headache, unspecified (principal); R07.89 Other chest pain; K59.00 Constipation, unspecified; I10 Essential (primary) hypertension; R11.0 Nausea; R42 Dizziness and giddiness; Z79.899 Other long term (current) drug therapy; Z86.73 Personal history of transient ischemic attack (TIA), and cerebral infarction without residual deficits
CPT/HCPCS: 36415; 71046; 74018; 80053; 81001; 83690; 84484; 85025; 87635; 93005; 99283; 99284

== ENCOUNTER → 2025-06-23 15:29 | Outpatient (BNV) | payer OTHER, SELFPAY | PROVIDERS: Emergency Provider Emergency Medicine; PCP Family Medicine; Visit Provider Internal Medicine | DX: R07.89 Other chest pain (principal) | CPT/HCPCS: 93010 ==

== ENCOUNTER → 2025-06-23 15:34 | Outpatient (BNV) | payer OTHER, SELFPAY | PROVIDERS: PCP Family Medicine; Visit Provider Student in an Organized Health Care Education/Training Program | DX: R07.89 Other chest pain (principal); R10.10 Upper abdominal pain, unspecified | CPT/HCPCS: 71046; 74018 ==

== ENCOUNTER 2025-08-01 10:44 | Outpatient (REF) | payer OTHER, SELFPAY ==
--- NOTE | ~2025-08-01 | XR_ITS ---
EXAMINATION: XR CHEST CLINICAL INFORMATION: cough, SOB COMPARISON: Previous chest x-ray most recent June 2025 TECHNIQUE: 2 views of the chest were obtained. FINDINGS: Question increased central bronchial markings and interstitial prominence at the lung bases similar to recent June 2025 exam. No lobar consolidation. No pleural effusion or pneumothorax. Cardiac and mediastinal contours are stable. Degenerative changes of the spine. XR/XR chest 2V IMPRESSION: Question increased central bronchial markings and interstitial prominence at the lung bases. This is similar to recent June 23, 2024 exam. This may represent airways disease. Differential would include an atypical interstitial pneumonia. No lobar consolidation. Electronically signed by: Court Zhong MD 08/01/2025 11:48 AM CANDIS
--- OUTSIDE RECORDS SUMMARY | 2025-08-01 09:40 | XMS_ITS | Encounter Summary ---
Author Organization [employer] Address [address] [place] [address] Care Team Providers Care Toll Service Observer Name Role Phone Tiffany Kent MD Primary Care Provider [phone] Cy Perdue MD Unavailable [phone] Reason for Visit * Reason Comments Cough Nasal Congestion Encounter Details Date Type Department Care Team ([facility] Contact Info) Description 08/01/2025 9:40 AM EST Office Visit [facility] [address] [place] [address] COPD exacerbation (CMS/HCC) (HCC) (Primary Dx); Cough in adult; Nasal congestion [...] the past 12 months, has t he [employer], gas, oil or water company threatened to [...] 9:51 AM EST documented in this encounter Plan of Treatment [...] patients manage their type 2 diabetes No Kosta Hernandez MA Patient has chronic kidney disease Care Plan Patient has chronic kidney disease No Kosta Hernandez MA Weekly blood pressure task Care Plan Weekly blood pressure task No Kosta Hernandez MA Patient has chronic kidney disease Care Plan Patient has chronic kidney disease No Kosta Hernandez MA documented as of this encounter Procedures Procedure [...] AM EST Narrative 08/01/2025 11:52 AM EST [address] [address] XRay Report Signed Patient: Edilma Méndez MR#: [id number] : 1945 Acct:[id number] Age/Sex: 80 / F ADM Date: 08/01/25 Loc: HO.HHCX Attending Dr: Ang Miner MD Ordering Physician: ANG MINER MD Date of Service: 08/01/25 Procedure(s): XR chest 2V Accession Number(s): [id number] cc: ANG MINER MD; Tiffany Kent MD [...] 08/01/25 1148 DD/ 1123 TD/TT: 08/01/25 1138 Hot Press Operator: FERNANDO Procedure Note Donotuseinterpreter, Image - 08/01/2025 [place] [address] XRay Report Signed Patient: Esther Méndez#: [id number] : 5Acct:[id number] Age/Sex: 80 / FADM Date: 08/01/25 Loc: HO.HHCX Attending Dr: Ang Miner MD Ordering Physician: ANG MINER MD Date of Service: 08/01/25 Procedure(s): XR chest 2V Accession Number(s): [id number] cc: ANG MINER MD; Tiffany Kent MD [...] 08/01/25 1148 DD/ 1123 TD/TT: 08/01/25 1138 Hot Press Operator: FERNANDO Ang Miner MD IMG XR PROCEDURES Final Result * POCT Rapid Influenza A BROWN ID NOW (08/01/2025 10:24 AM EST) Influenza A Negative Negative, Indeterminate [facility] QC Media Lot # [id number] [facility] Lot# Expiration Date [facility] Swab 08/01/2025 10:2 4 AM EST Ang Miner MD POINT OF CARE TEST ENTER/EDIT OR DERABLES Final Result Performing Organization Address City/[facility]/ZIP Co de Phone Number [facility] [address] [place] [phone] * POCT Rapid Influenza B BROWN ID NOW (08/01/2025 10:24 AM EST) Pathologist [facility] Influenza B Negative Negative, Indeterminate [facility] QC Media Lot # [id number] [facility] Lot# Expiration Date [facility] Swab 08/01/2025 10:2 4 AM EST Ang Miner MD POINT OF CARE TEST ENTER/EDIT OR DERABLES Final Result Performing Organization Address City/[facility] Co de Phone Number [facility] [address] [place] [phone] * POCT Rapid Covid-19 BROWN ID NOW (08/01/2025 10:09 AM EST) Pathologist [facility] Coronavirus Antigen PCR Negative Negative, Indeterminate, None Detected, Invalid, Specimen unsatisfactory for evaluation, Weakly Positive, 2+ QC Media Lot # [id number] Lot# Expiration Date [id number] Swab 08/01/2025 10:0 9 AM EST Ang [...] documented as of this encounter Care Teams Toll Service Observer Relationship Specialty Start Date End Date Tiffany Kent MD [address] [place] [phone] PCP - General Family Medicine 09/27/13 Cy Perdue MD [address] [place] [phone] Cardiology 12/12/24 Dr. Phelps Psychiatry 02/21/25 documented as of this encounter
--- OUTSIDE RECORDS SUMMARY | 2025-08-01 12:57 | XMS_ITS | Data Portability ---
Author Organization [employer] [facility], [facility] Address [address] [place] [address] Care Team Providers Care Gummed Tape Press Operator Name Role Phone HIM CCA OTHER Assessment [...] Pulse oximetry Respiratory rate Body temperature Systolic And Diastolic Provider Name and Address Organization Details Last Updated DateTime 4 79 /min 96 % 96 % 10 /min 98.8 [degF] 134/68 mm[Hg] Not Available [facility] - production 4 [...] Diagnosis SNOMED-CT Code Diagnosis ICD10 Code Diagnosis IMO Codes Diagnosis Note [id number] Katherine Chadwick MD Main - [facility] [address] [place] [phone] 08/24/2024 12:08:28 08/24/2024 12:43:33 Cough 20238638 R05.9 79 year old female with COPD, [...] assessment and plan as documented by the supply aide. I provided real-time medical direction for this [...] Recorded Advance Directives Directive None Recorded Payers Insurance Date Sequence Insurance Name Policy Number Policy Mario Covered Member ID Mario Member ID Guarantor Name 08/24/2024 1 [facility] - DOS ON OR AFTER 2022 - DUAL ELIGIBLE - CUSTODIAL OPTIONS AND ONE CARE (MEDICARE REPLACEMENT/AD VANTAGE - HMO) Edilma Méndez [id number] Edilma Méndez Notes Date Note Type Note Provider Name and Address Organization Details Recorded Time 08/24/2024 text/html [facility] Nurse Triage Notes (Darius Khan): Reason For Request: Patient is short of breath, and has a history of breathing problems, wants checked out. Chief Complaints: Breathing problems PMH: Hypertension, Gastroesophageal Reflux Disease (GERD), Anxiety Disorder, COPD/Asthma Comments: Babysitter verified the Pt.'s name//address and phone number. [...] ...................... ...................... ...................... ...................... ...................... ...................... ......... Musical Engineer Note From Sai Barajas: Dispatched to above address for cough, breathing problems. On arrival patient 79 y/o F, found sitting on cough, AOX4, airway patent, speaking in full sentences, good color, in no apparent distress. Patient Georgian speaking only, family on scene to translate. [...] radial pulse, skin pink warm and dry. [facility] contacted, spoke with Dr. Chadwick, advised of patient complaints and exam findings. [facility] believes it is likely viral URI, recommends home care, rest and follow up with PCP should symptoms worsen or continue over the next week. Patient and family advised of [facility] recommendations, home care and red flags. Patient and family understand and agree with this plan. Patient and family have no additional questions or concerns at this time. SC8 clear. EOR. ...................... ...................... ...................... ...................... ...................... ...................... ......... [facility] Consulted: Katherine Chadwick ...................... ...................... ...................... ...................... ...................... ...................... ......... Disposition: Fadia Chadwick MD [address], [place], [phone], [employer] 08/24/2024 12:13:00 OBGyn Episode No OBEpisode recorded.
--- OUTSIDE RECORDS SUMMARY | 2025-08-01 12:57 | XMS_ITS | Clinical Summary ---
Author Organization [facility] Address [address] [place] [address] Care Team Providers Care Fig Caprifier Name Role Phone Tiffany Kent MD Primary Care Provider [phone] Allergies No known active allergies Medications aspirin [...] Tobacco: Never Tobacco Cessation:Counseling Given: Not Answered [facility] Utilities Answer Date Recorded In the past 12 months has e [employer], [employer], [employer], or water [employer] threatened to shut off services in your [...] any time in the past 12 m [facility], were you homeless or living in a prison (including now)? No 11/11/2024 Comments Unknown Sex [...] (Females,Ages 65 and older) 2010 RSV Vaccine 50 years and older and Patients (1 - 1-dose 75+ series) 01/16/2020 Influenza Vaccine 04/20/2025 07/19/2024, , 06/25/2020, Additional history exists COVID-19 Vaccine ( season) 2025 09/04/2021, 12/13/2020, 11/15/2020 Hepatitis B Vaccines Aged Out No long er eligible based on patient's age to complete this topic Insurance [facility] MEDICARE OUT OF NETWORK Advance Directives * Full Code (Latest Code Status on File) Date Activated Date Inactivated Comments 11/10/2024 9:12 AM Care Teams Fig Caprifier Relationship Specialty Start Date End Date Tiffany eKnt MD [address] [place] [phone] PCP - General Family Medicine 11/10/24
--- OUTSIDE RECORDS SUMMARY | 2025-08-01 12:57 | XMS_ITS | Encounter Summary ---
Author Organization [employer] Address [address] [place] [address] [address] [place] [address] Care Team Providers Care Auditing Manager Name Role Phone Tiffany Kent MD Primary Care Provider [phone] Cy Perdue MD Unavailable Encounter Details Date Type Department Care Team ([facility] st Contact Info) Description 06/09/2023 Orders Only [facility] MEDICINE [address] [place] [address] Tiffany Kent MD [address] [place], [place] [phone] Right-sided low back pain with right-sided sciatica, [...] as of this encounter Plan of Treatment Not on file documented as of this encounter Visit Diagnoses Diagnosis Right-sided low back pain with right-sided sciatica, unspecified chronicity- Primary Pulmonary emphysema, unspecified emphysema type documented in this encounter Care Teams Auditing Manager Relationship Specialty Start Date End Date Tiffany Kent MD [address] [place] [address] PCP - General Family Medicine 09/27/13 Cy Perdue MD [address] [place] [address] Cardiology 12/12/24 Dr. Phelps Psychiatry 02/21/25 documented as of this encounter
--- OUTSIDE RECORDS SUMMARY | 2025-08-01 12:57 | XMS_ITS | Encounter Summary ---
Author Organization [employer] Address [address] [place] [address] Care Team Providers Care Diamond Die Polisher Name Role Phone Tiffany Kent MD Primary Care Provider [phone]- [phone] Cy Perdue MD Unavailable [phone] Encounter Details Date Type Department Care Team (Latest Contact Info) Description 08/01/2025 Travel Social History Tobacco Use Types Packs/Day Years Used Date Smoking Tobacco: Never Passive Smoke Exposure: Never Smokeless Tobacco: Never Alcohol Use Standard [...] your housing situation today? I have edgar sing 06/01/[address] you li [...] type 2 diabetes No Kosta Hernandez MA Weekly blood pressure task Care Plan Weekly blood pressure task No Kosta Hernandez MA Help patients manage their type 2 [...] Hernandez MA documented as of this encounter Visit Diagnoses Not on filedocumented in this encounter Additional Health Concerns Active Problems Noted Date Diagnosed Date Help patients manage their type 2 diabetes 08/01 Weekly blood pressure task 08/01/2025 Help patients manage their type 2 diabetes 08/01 Patient has chronic kidney disease 08/01/2025 Weekly blood pressure task 08/01/2025 Patient has chronic kidney disease 08/01/2025 Assessment Noted Time PHQ-9 Depression Total Score: 1 06/15/20 25 10:49 AM EDT documented as of this encounter Care Teams Diamond Die Polisher Relationship Specialty Start Date End Date Tiffany Kent MD [address] [place] [phone] PCP - General Family Medicine 09/27/13 Cy Perdue MD [address] [place] [address] Cardiology 12/12/24 Dr. Phelps Psychiatry 02/21/25 documented as of this encounter
--- OUTSIDE RECORDS SUMMARY | 2025-08-01 12:58 | XMS_ITS | Clinical Summary ---
Author Organization [employer] Address [address] [place] [address] Care Team Providers Care Terminal Superintendent Name Role Phone Tiffany Kent MD Primary Care Provider [phone] Cy Perdue MD Unavailable [phone] Allergies Active Allergy Reactions Criticality Noted Date Comments Oxycodone 09/23/2022 Medications lidocaine (Xylocaine) 5 % ointmentIndicati ons:Right-sided low back pain with right-sided sciatica, unspecified chronicity apply by topical route 1 - 3 times every day to affected area(s) as needed 50 g 2 3 Active Acetaminophen Extra Strength 500 MG tabletIndication s:Right-sided low back pain with right-sided sciatica, unspecified chronicity TAKE 1 OR 2 TABLETS BY MOUTH EVERY 8 HOURS NEEDED 30 tablet 1 3 Active loratadine (Claritin) 10 MG tabletIndication s:Allergic rhinitis due to other allergic trigger, unspecified seasonality TAKE 1 TABLET BY MOUTH EVERY DAY NEEDED 90 tablet 1 4 Active atorvastatin (Lipitor) 80 MG tabletIndication s:Dyslipidemia TAKE 1 TABLET BY MOUTH AT BEDTIME 90 tablet 3 4 Active omeprazole (PriLOSEC) [address] capsuleIndicatio ns:Gastroesophag eal reflux disease, unspecified whether esophagitis present TAKE 1 CAPSULE BY MOUTH EVERY DAY BEFORE A MEAL 90 capsule 3 4 Active Aspirin Low Dose 81 MG EC tabletIndication s:Essential hypertension,Art eriosclerosis of coronary artery,Acute non-ST elevation myocardial infarction (NSTEMI) ([facility]) TAKE 1 TABLET BY MOUTH EVERY MORNING 90 tablet 3 5 Active metoprolol succinate XL (Toprol-XL) 25 MG 24 hr tabletIndication s:Essential hypertension,Art eriosclerosis of coronary artery,Acute non-ST elevation myocardial infarction (NSTEMI) ([facility]) TAKE 1 TABLET BY MOUTH EVERY MORNING 90 tablet 3 5 Active Multiple Vitamins-Mineral s (CertaVite/Antio xidants) tabletIndication s:Vitamin deficiency TAKE 1 TABLET BY MOUTH EVERY MORNING WITH FOOD 90 tablet 3 5 Active isosorbide mononitrate ER (Imdur) 60 MG 24 hr tabletIndication s:Arterioscleros is of coronary artery Take 60 mg by mouth Once per day. Do not crush or chew. Active sertraline (Zoloft) 25 MG tabletIndication s:Grief Take by mouth Once per day. Submaranian Active Fluticasone-Salm eterol 500-50 MCG/ACT aerosol powderIndication s:Pulmonary emphysema, unspecified emphysema type Take 1 puff by mouth 2 times daily. 30 each 11 5 Active Umeclidinium [place] (Incruse Ellipta) 62.5 MCG/ACT aerosol powderIndication s:Pulmonary emphysema, unspecified emphysema type Inhale 1 Act (62.5 mcg) Once per day. 30 each 11 5 Active traZODone (Desyrel) 100 MG tabletIndication s:Severe dementia with other behavioral disturbance, unspecified dementia type (CMS/HCC) ([facility]) take 2-3 tablets by oral route every day at bedtime 90 tablet 1 5 Active apixaban (Eliquis) 5 MG tabletIndication s:History of pulmonary embolism Take 5 mg by mouth 2 times daily. Active Calcium + Vitamin D3 600-5 MG-MCG tabletIndication s:Osteopenia, unspecified location TAKE 1 TABLET BY MOUTH TWICE DAILY IN THE MORNING AND IN THE EVENING 180 tablet 3 5 Active nitroglycerin (Nitrostat) 0.4 MG SL tabletIndication s:Acute non-ST elevation myocardial infarction (NSTEMI) ([facility]) Place 1 tablet (0.4 mg) under the tongue every 5 (five) minutes if needed for chest pain. 30 tablet 5 Active donepezil (Aricept) 5 MG tabletIndication s:Severe dementia with other behavioral disturbance, unspecified dementia type ([facility]) ([facility]) TAKE 1 TABLET BY MOUTH AT BEDTIME 90 tablet 3 5 Active montelukast (Singulair) 10 MG tabletIndication s:Mild intermittent asthma without complication TAKE 1 TABLET BY MOUTH EVERY EVENING 90 tablet 1 5 Active albuterol (2.5 MG/3ML) 0.083% nebulizer solution Take 3 mL (2.5 mg) by nebulization every 6 (six) hours if needed for wheezing or shortness of breath. 75 mL 1 5 026 Active albuterol 108 (90 Base) MCG/ACT inhaler Inhale 2 puffs every 4 (four) hours if needed for wheezing or shortness of breath. 18 g 1 5 026 Active Spacer/Aero-Hold ing Chambers (OptiChamber Vandana) misc 1 each every 4 (four) hours if needed (asthma). 1 each 5 Active predniSONE (Deltasone) 20 MG tablet Take 2 tablets (40 mg) by mouth Once per day for 5 days. 10 tablet 5 025 Active Hospital, Clinic, or Other Facility Administered Medication Ordered Dose Route Frequency Start Date End Date Status albuterol (2.5 MG/3ML) 0.083% nebulizer solution 2.5 mgIndications:COPD exacerbation ([facility]) ([facility]) 2.5 mg NEBULIZATION Once 08/01/2025 08/01/2025 Ended Active Problems Patient Care Coordination No te Formatting of this note migh t be different from the original. CCA Ledger Poster: Mikayla Dumont Support Agency: [facility] Problem Noted Date Diagnosed Date Stage 3b chronic kidney disease ([facility]) 2024 Overview (07/24/2025): Lab Results Component Value Date CREATININE 1.03 06/23/2025 CREATININE 0.99 05/02/2025 CREATININE 0.86 06/21/2024 CREATININE 0.94 08/06/2022 CREATININE 1.02 04/14/2022 CREATININE 0.94 04/06/2022 EGFR 52 06/23/2025 EGFR 54 05/02/2025 EGFR >60 06/21/2024 MICROALBCREU 8.0 04/17/2024 -avoid nephrotoxic agents Depression, recurrent 07/19/2024 Severe dementia with other b ehavioral disturbance, unspecified dementia type (CMS/HCC) 04/13/2024 Overview (02/21/2025): Per daughter, pt's short-term memory has worsened [...] generalized cerebral volume loss Assessment & Plan (06/15/2025 10:55 AM EDT): Per daughter, pt's short-term memory [...] generalized cerebral volume loss Assessment & Plan (02/21/2025 9:28 AM EDT): Per daughter, pt's short-term memory [...] 06/09/2023. Other specified health status 03/04/2023 Overview (06/15/2025): -Next annual evaluation due after 06/15/26 -MOLST was done with [facility] on 05/02/2014. -Last Eye Exam at [facility] with Dr. Hutchison on 11/2022, will request most recent note. -has dentures -health care proxy 07/19/24 Assessment & Plan (06/15/2025 10:55 AM EDT): -Next annual evaluation due after 06/15/26 -MOLST was done with [facility] on 05/02/2014. -Last Eye Exam at [facility] with Dr. Hutchison on 11/2022, will request most recent note. -has dentures -health care proxy 07/19/24 Assessment & Plan (02/21/2025 9:29 AM EDT): -Next annual evaluation due after 07/19/25 -MOLST was done with [facility] on 05/02/2014. -Last Eye Exam at [facility] with Dr. Hutchison on 11/2022, will request most recent note. -has dentures -health care proxy 07/19/24 Assessment & Plan (07/19/2024 2:40 PM EDT): -Next annual evaluation due after 07/19/25 -MOLST was done with [facility] on 05/02/2014. -Last Eye Exam at [facility] with Dr. Hutchison on 11/2022, will request most recent note. -has dentures -health care proxy 07/19/24 Assessment & Plan (03/04/2023 9:17 AM EDT): Next PE due after March 04/2024 -MOLST was done with [facility] on 05/02/2014. -Last Eye Exam at [facility] with Dr. Martin on 11/2022, will request [...] (09/24/2022): -unprovoked pulmonary embolism -continue Eliquis for meterman anticoagulation -discuss fall prcautions Assessment & Plan (06/15/2025 10:55 AM EDT): -unprovoked pulmonary embolism -continue Eliquis for meterman anticoagulation -discuss fall prcautions Assessment & Plan (02/21/2025 9:29 AM EDT): -unprovoked pulmonary embolism -continue Eliquis for fci anticoagulation -discuss fall prcautions Assessment & Plan (07/19/2024 2:44 PM EDT): -unprovoked pulmonary embolism -continue Eliquis for fci anticoagulation -discuss fall prcautions Assessment & Plan (03/04/2023 8:54 AM EDT): -unprovoked pulmonary embolism -continue Eliquis for meterman anticoagulation -discuss fall prcautions Assessment & Plan (09/24/2022 11:56 AM EST): -unprovoked pulmonary embolism -continue Eliquis for meterman anticoagulation -discuss fall prcautions Urinary incontinence 09/24/2022 Overview (09/24/2022): Pt uses pull ups Assessment & Plan (02/21/2025 9:29 AM EDT): Pt uses pull ups Assessment & Plan (09/24/2022 1:38 PM EST): -pt uses pull ups Chronic pain 09/23/2022 Acute non-ST elevation myocardial infarction ([facility]) 03/03/2022 Overview (03/01/2025): -admitted 08/28/2022-09/01/2022 for NSTEMI -Underwent diagnostic catheterization which showed no obstructive disease, NSTEMI suspected to be from vasospasm. -ECHO showed EF 55 to 60%. -Started on aspirin and metoprolol. Diltiazem and benazepril discontinued given normal systolic BP on metoprolol and nitropaste. -admitted to [facility] 11/10/24 for chest pain with normal ECG, cardiac biomarkers mildly elevated but flat. -[facility] Suzan Perdue DO., Note from 02/28/25 reviewed -stress test with Dr. Natividad Martel MD 02/22/25 negative EF 57% Assessment & Plan (06/15/2025 10:55 AM EDT): -admitted 08/28/2022-09/01/2022 for NSTEMI -Underwent diagnostic catheterization which showed no obstructive disease, NSTEMI suspected to be from vasospasm. -ECHO showed EF 55 to 60%. -Started on aspirin and metoprolol. Diltiazem and benazepril discontinued given normal systolic BP on metoprolol and nitropaste. -admitted to [facility] 11/10/24 for chest pain with normal ECG, cardiac biomarkers mildly elevated but flat. -[facility]. Suzan Perdue DO., Note from 02/28/25 reviewed -stress test with Dr. Natividad Martel MD 02/22/25 negative EF 57% Orders: nitroglycerin (Nitrostat) 0.4 MG SL tablet; Place 1 tablet (0.4 mg) under the tongue every 5 (five) minutes if needed for chest pain. Assessment & Plan (03/04/2023 8:54 AM EDT): [...] BP on metoprolol and nitropaste. Anemia 03/03/2022 Overview (06/15/2025): Lab Results Component Value Date HGB 12.3 05/02/2025 HGB 12.8 11/10/2024 HGB 12.7 06/21/2024 HGB 13.0 03/22/2023 HGB 11.3 (L) 12/18/2020 HEMATOCRIT 36.2 12/18/2020 Stable the past 4 years. Assessment & Plan (06/15/2025 10:55 AM EDT): Lab Results Component Value Date HGB 12.3 05/02/2025 HGB 12.8 11/10/2024 HGB 12.7 06/21/2024 HGB 13.0 03/22/2023 HGB 11.3 (L) 12/18/2020 HEMATOCRIT 36.2 12/18/2020 Stable the past 4 years. Arteriosclerosis of coronary artery 03/03/2022 Thyroid nodule 03/03/2022 Overview (06/15/2025): -FNA 11/05/2016 benign -Biopsy on 06/26/2020 with [...] thyroidIMPRESSION:Heterogeneous, multinodular thyroid gland. A 1.8 cm TR 4 thyroid nodule meets criteria for biopsy. Correlation with prior biopsy results recommended to determine further managementMultiple additional subcentimeter thyroid nodules as detailed above. Continued surveillance recommended. -referred to endocrinology 10/04/24 , missed apt in b, given number to call for follow up 02/21/25 -despite repeated encouragement to follow-up with endocrinology, pt has failed to do so. Will repeat US 06/15/25 and pt understands risk and that one of the nodules was recommended to be biopsied to rule out neoplasm. Assessment & Plan (06/15/2025 10:55 AM EDT): -FNA 11/05/2016 benign -Biopsy on [...] thyroidIMPRESSION:Heterogeneous, multinodular thyroid gland. A 1.8 cm TR 4 thyroid nodule meets criteria for biopsy. Correlation with prior biopsy results recommended to determine further managementMultiple additional subcentimeter thyroid nodules as detailed above. Continued surveillance recommended. -referred to endocrinology 10/04/24 , missed apt in Feb, given number to call for follow up 02/21/25 -despite repeated encouragement to follow-up with endocrinology, pt has failed to do so. Will repeat US 06/15/25 and pt understands risk and that one of the nodules was recommended to be biopsied to rule out neoplasm. Orders: US Thyroid; Future Assessment & Plan (02/21/2025 10:32 AM EDT): -FNA 11/05/2016 benign -Biopsy on [...] thyroidIMPRESSION:Heterogeneous, multinodular thyroid gland. A 1.8 cm TR 4 thyroid nodule meets criteria for biopsy. Correlation with prior biopsy results recommended to determine further managementMultiple additional subcentimeter thyroid nodules as detailed above. Continued surveillance recommended. -referred to endocrinology 10/04/24 , missed apt in Oct, given number to call for follow up 02/21/26 Assessment & Plan (10/04/2024 9:33 AM EST): [...] 01/25/2013 Chronic obstructive lung disease 11/16/2012 Overview (02/21/2025): Hx two hospitalizations for COPD exacerbation in 01/2015. She has continued SOB. No wheeze on exam. Euvolemic on exam and normal SaO2 on room air. Advised to continue Advair 500/50, restart Spiriva, albuterol prn. Assessment & Plan (06/15/2025 10:55 AM EDT): Hx two hospitalizations for COPD exacerbation in 01/2015. She has continued SOB. No wheeze on exam. Euvolemic on exam and normal SaO2 on room air. Advised to continue Advair 500/50, restart Spiriva, albuterol prn. Assessment & Plan (02/21/2025 9:28 AM EDT): Hx two hospitalizations for COPD exacerbation in 01/2015. She has continued SOB. No wheeze on exam. Euvolemic on exam and normal SaO2 on room air. Advised to continue Advair 500/50, restart Spiriva, albuterol prn. Assessment & Plan (07/19/2024 2:42 PM EDT): Hx two hospitalizations for COPD exacerbation in 01/2015. She has continued SOB. No wheeze on exam. Euvolemic on exam and normal SaO2 on room air. Advised to continue Advair 500/50, restart Spiriva, albuterol prn. Referral to pulmonology. She agrees with the plan. Hyperlipidemia 11/16/2012 Overview (06/15/2025): Lab Results Component Value Date CHOL 115 04/17/2024 TRIG 107 04/17/2024 TRIG 97 03/04/2023 HDL 54 04/17/2024 LDLCHOLCAL 40 04/17/2024 -continue lifestyle modification -continue atorvastatin 80 mg -ordered repeat FLP + HFP 06/15/25 Assessment & Plan (06/15/2025 10:55 AM EDT): Lab Results Component Value Date CHOL 115 04/17/2024 TRIG 107 04/17/2024 TRIG 97 03/04/2023 HDL 54 04/17/2024 LDLCHOLCAL 40 04/17/2024 -continue lifestyle modification -continue atorvastatin 80 mg -ordered repeat FLP + HFP 06/15/25 Assessment & Plan (07/19/2024 2:44 PM EDT): Lab Results Component Value Date CHOL 115 04/17/2024 TRIG 107 04/17/2024 TRIG 97 03/04/2023 HDL 54 04/17/2024 LDLCHOLCAL 40 04/17/2024 -continue lifestyle modification -continue atorvastatin 80 mg Essential hypertension 11/16/2012 Overview (06/15/2025): -Blood pressure is at goal -Continue lifestyle modifications -Continue current medications -Stop amlodipine 5 mg 06/15/25 Assessment & Plan (07/23/2025 11:45 AM EST): Well controlled off amlodipine. Continue lifestyle management. Assessment & Plan (06/15/2025 10:55 AM EDT): -Blood pressure is at goal -Continue lifestyle modifications -Continue current medications -Stop amlodipine 5 mg 06/15/25 Assessment & Plan (07/19/2024 2:43 PM EDT): -Blood pressure is at goal -Continue lifestyle modifications -Continue current medications Osteopenia 11/16/2012 Recurrent major depressive disorder, in partial remission 05/18/2012 Overview (09/24/2022): -sertraline initially prescribed by psychiatry, decreased to 100mg daily during hospitalization for chest pain 08/2022 Assessment & Plan (03/04/2023 8:54 AM EDT): -sertraline initially prescribed by psychiatry, decreased to 100mg daily during hospitalization for chest pain 08/2022 Assessment & Plan (09/24/2022 1:37 PM EST): -sertraline initially prescribed by psychiatry, decreased to 100mg daily during hospitalization for chest pain 08/2022 Type 2 diabetes mellitus wit h stage 3b chronic kidney disease, without long-term current use of insulin 05/18/2012 Overview (07/24/2025): Diabetes is controlled. Lab Results Component Value Date HGBA1C 6.0 (A) 06/15/2025 HGBA1C 5.9 02/21/2025 HGBA1C 5.9 07/19/2024 Lab Results Component Value Date CREATININE 1.03 06/23/2025 EGFR 52 06/23/2025 MICROALBCREU 8.0 04/17/2024 LDLCHOLCAL 40 04/17/2024 -Shahab/Arb: -Statin therapy: atorvastatin 80 mg -Diabetic eye exam: followed by Dr. Irving Palencia of [facility] -Diabetic foot exam: done 07/19/24 -Continue lifestyle modifications -Continue current medications -ordered routine labs 06/15/25 Assessment & Plan (06/15/2025 10:55 AM EDT): Diabetes is controlled. Lab Results Component Value Date HGBA1C 6.0 (A) 06/15/2025 HGBA1C 5.9 02/21/2025 HGBA1C 5.9 07/19/2024 Lab Results Component Value Date CREATININE 0.99 05/02/2025 EGFR 54 05/02/2025 MICROALBCREU 8.0 04/17/2024 LDLCHOLCAL 40 04/17/2024 -Shahab/Arb: -Statin therapy: atorvastatin 80 mg -Diabetic eye exam: followed by Dr. Irving Palencia of [facility] -Diabetic foot exam: done 07/19/24 -Continue lifestyle modifications -Continue current medications -ordered routine labs 06/15/25 Orders: Albumin, Random Urine W/Creatinine; Future Hepatic Function Panel; Future Lipid Panel, Standard; Future Hemoglobin A1c; Future Basic Metabolic Panel; Future POCT glucose manually resulted POCT glycosylated hemoglobin (Hgb A1c) Assessment & Plan (07/19/2024 2:44 PM EDT): Diabetes is controlled. Lab Results Component Value Date HGBA1C 5.9 07/19/2024 HGBA1C 5.9 04/17/2024 HGBA1C 5.9 (H) 03/04/2023 Lab Results Component Value Date CREATININE 0.86 06/21/2024 EGFR >60 06/21/2024 MICROALBCREU 8.0 04/17/2024 LDLCHOLCAL 40 04/17/2024 -Shahab/Arb: -Statin therapy: atorvastatin 80 mg -Diabetic eye exam: followed by Dr. Irving Palencia of [facility] -Diabetic foot exam: done 07/19/24 -Continue [...] probiotic foods. Follow up if not resolved. Dementia (CMS/[facility]) 03/03/2022 5 Overview (09/24/2022): Per daughter, pt's short-term memory [...] OF PROLONGED Qt IN SETTING OF TRAZODONE Asthma 05/18/2012 02/21/2025 Encounters Date Type Department Care Team Description 08/01/2025 9:40 AM EST Office Visit [facility] [address] [place] [id number] COPD exacerbation (CMS/HCC) (HCC) (Primary Dx); Cough in adult; Nasal congestion 08/01/2025 Travel 07/23/2025 11:15 AM EST Telemedicine [facility] [address] [place] [phone] Tiffany Kent MD Essential hypertension (Primary Dx) 07/23/2025 Travel 07/20/2025 Telephone [facility] [address] [place] [phone] Tiffany Kent MD chartprep 06/23/2025 Orders Only GENERIC EXTERNAL DATA DEPARTMENT Provider, Generic External Data 06/19/2025 Refill [facility] [address] [place] [phone] Tiffany Kent MD Severe dementia with other behavioral disturbance, unspecified dementia type ([facility]); Mild intermittent asthma without complication 06/15/2025 10:30 AM EDT Office Visit [address] [phone] Tiffany Kent MD Type 2 diabetes mellitus without complication, with long-term current use of insulin ([facility]) (Primary Dx); Essential hypertension; Hyperlipidemia, unspecified hyperlipidemia type; Pulmonary emphysema, unspecified emphysema type ([facility]); Acute non-ST elevation myocardial infarction (NSTEMI) ([facility]); History of pulmonary embolism; Anemia, unspecified type; Thyroid nodule; Severe dementia with other behavioral disturbance, unspecified dementia type ([facility]); Encounter for immunization; Other specified health status 06/15/2025 Telephone [facility] [address] [place] [phone] Tiffany Kent MD 06/15/2025 Travel 06/07/2025 Orders Only [facility] [address] [place] [phone] Tiffany Kent MD Acute non-ST elevation myocardial infarction (NSTEMI) ([facility]) (Primary Dx); Arteriosclerosis of coronary artery; Hyperlipidemia, unspecified hyperlipidemia type; Essential hypertension 06/06/2025 Telephone [facility] [address] [place] [phone] Tiffany Kent MD Referral 06/04/2025 Refill [facility] [address] [place] [phone] Tiffany Kent MD 05/02/2025 Orders Only GENERIC EXTERNAL DATA DEPARTMENT Provider, Generic External Data from Last 3 Months Immunizations Immunization Administration Dates Next Due Hep B, adult 07/22/2012,06/16/2011,05/18/2011 Influenza High-dose Quadriva lent Preservative Free 06/09/2023 Influenza Quadrivalent Adjuvanted 06/25/2020 Influenza injectable quadriv alent IIV4 with preservative 06/12/2015 Influenza injectable quadriv alent preservative free 08/03/2016 Influenza, High Dose Seasona l, Preservative Free 06/15/2025,07/19/2024,07/20/2019,06/23 Influenza, IIV3, injectable 05/31/2014, 1 Influenza, Split (incl. magalys fied surface antigen) 05/18/2012 Moderna Covid-19 Vaccine 12+ 09/04/2021,12/14/19 21,11/15/2020 Pneumococcal Conjugate PCV 13 04/22/2015 Pneumococcal Polysaccharide PPSV23 08/03,06/05/2014,02/07/2008,07/02,07/07/2002,07/18/1997 TD (adult), 2 Lf tetanus tox oid, preservative free, adsorbed 06/01/2006,04/20/1992 Tdap 06/15/2025,09/03/2014 Zoster, Recombinant 04/20/2022,02/06/2022 Zoster, live 02/14/2014 Social [...] Mass Index 24.3 08/01/2025 9:51 AM EST Plan of Treatment Health Maintenance Due Date Last Done Comments HIB Vaccines (1 of 1 - Risk 1-dose series) [birth year]/16/1946 Meningococcal Vaccine (1 - Risk 2-dose series) 1947 Meningococcal B Vaccine (1 of 4 - Increased Risk) 1955 RSV Patients and Patients Aged 60 years or older (1 - 1-dose 75+ series) 01/16/2020 Eye Exam 02/18/2025 02/18/2023 Diabetes: Urine Protein Screening 04/17/2025 04/17/2024, 03/04/2023, 12/18/2020 Lipid Panel 04/17/2025 04/17/2024, 02/18, 12/18/2020 COVID-19 Vaccine ( season) 2025 09/04/2021, 12/13/2020, 11/15/2020 SDOH Screening 06/01/2025 06/01/2024 Diabetes: Foot Exam 07/19/2025 07/19/2024, 07/19/2024, 07/19/2024 Diabetes: Hemoglobin A1C 12/13/2025 025, 02/21/2025, 07/19/2024, Additional history exists Alcohol/Substance Use Screening 06/15/2026 06/15/2025 Depression Screening 06/15/2026 06/15/2025, 06/15/20 Tobacco Screening 08/01/2026 08/01/2025 DTaP/Tdap/Td Vaccines (3 - Td or Tdap) 06/15/2035 06/15/2025, 09/03/2014, 06/01/2006, Additional history exists Hepatitis B Vaccines Completed 07/22/2012, 06/16/2011, 05/18/2011 Pneumococcal Vaccine: 50+ Years Completed 08/03/2016, 04/22/2015, 06/05/2014, Additional history exists Zoster Vaccines Completed 04/20/2022, 01/19, 02/14/2014 Influenza Vaccine Completed 06/15/2025, , 06/09/2023, Additional history exists HPV Vaccines Aged Out No longer eligi [...] on patient's age to complete this topic Goals Goal Patient Goal Type Associated Problems Recent Progress Patient-Stated? Author Help patients manage their type 2 diabetes Care Plan Help patients manage their type 2 diabetes Kosta Huffman MA Weekly blood pressure task Care Plan Weekly blood pressure task Kosta Huffman MA Help patients manage their type 2 diabetes Care Plan Help patients manage their type 2 diabetes Frieda Hernandez KostaROSSANA Patient has chronic kidney disease Care Plan Patient has chronic kidney disease No Kosta Hernandez MA Weekly blood pressure task Care Plan Weekly blood pressure task No Amira HernandeztaviaROSSANA cuevas Patient has chronic kidney disease Care Plan Patient has chronic kidney disease No Kosta Hernandez MA Procedures Procedure Name Priority Date/Time Associated Diagnosis Comments XR CHEST 2 VIEWS Routine 08/01/2025 11:2 3 AM EST Cough in adult POCT INFLUENZA A (ID NOW RAPID MOLECULAR) Routine 08/01/2025 10:24 AM EST Nasal congestion Cough in adult POCT INFLUENZA B (ID NOW RAPID MOLECULAR) Routine 08/01/2025 10:24 AM EST Nasal congestion Cough in adult POCT COVID-19 AG BROWN ID NOW Routine 08/01/2025 10:09 AM EST Nasal congestion Cough in adult XR KUB AND UPRIGHT 2 VIEWS Routine 06/23/2025 9:53 PM EDT URINALYSIS, COMPLETE Routine 06/23/2025 9:29 PM EDT XR CHEST 2 VIEWS Routine 06/23/2025 6:22 PM EDT HIGH SENSITIVITY TROPONIN I Routine 06/23/2025 3:57 PM EDT LIPASE Routine 06/23/2025 3:57 PM EDT COMPREHENSIVE METABOLIC PANEL Routine 06/23/2025 3:57 PM EDT COVID-19 ID NOW (BROWN) Routine 06/23/2025 3:57 PM EDT CBC WITH AUTO DIFFERENTIAL Routine 06/23/2025 3:57 PM EDT POCT GLUCOSE Routine 06/15/2025 10:35 AM EDT Type 2 diabetes mellitus without complication, with long-term current use of insulin ([facility]) POCT GLYCOSYLATED HEMOGLOBIN (HGB A1C) Routine 06/15/2025 10:34 AM EDT Type 2 diabetes mellitus without complication, with long-term current use of insulin ([facility]) COMPREHENSIVE METABOLIC PANEL Routine 05/02/2025 8:55 PM EDT CBC Routine 05/02/2025 8:55 PM EDT ALBUMIN, RANDOM URINE W/CREATININE Routine 04/17/2024 8:35 AM EDT Type 2 diabetes mellitus without complication, without long-term current use of insulin ([facility]) LIPID PANEL, STANDARD Routine 04/17/2024 8:35 AM EDT Type 2 diabetes mellitus without complication, without long-term current use of insulin ([facility]) DIABETES EYE EXAM Routine 02/18/2023 from Last 3 Months or Most Recently Relevant to Health Maintenance Results * XR Chest 2 Views (08/01/2025 11:23 AM EST) Only the most recent of2 resultswithin the time period is included. Anatomical Region Laterality Modality Chest Radiographic Nicolasa ging 08/01/2025 11:2 3 AM EST Narrative 08/01/2025 11:52 [place] [address] XRay Report Signed Patient: Edilma Méndez MR#: [id number] : 1945 Acct:[id number] Age/Sex: 80 / F ADM Date: 08/01/25 Loc: HO.HHCX Attending Dr: Ang Ulloa MD Ordering Physician: ANG ULLOA MD Date of Service: 08/01/25 Procedure(s): XR chest 2V Accession Number(s): [id number] cc: ANG ULLOA MD; Tiffany Kent MD Reason for Exam: [...] 08/01/25 1148 DD/ 1123 TD/TT: 08/01/25 1138 Yarn Handler: FERNANDO Procedure Note Donotuseinterpreter, Image - 08/01/[address] [address] XRay Report Signed Patient: Esther Méndez#: [id number] : 5Acct:[id number] Age/Sex: 80 / FADM Date: 08/01/25 Loc: HO.HHCX Attending Dr: Ang Ulloa MD Ordering Physician: ANG ULLOA MD Date of Service: 08/01/25 Procedure(s): XR chest 2V Accession Number(s): [id number] cc: ANG ULLOA MD; Tiffany Kent MD Reason for Exam: [...] 08/01/25 1148 DD/ 1123 TD/TT: 08/01/25 1138 Yarn Handler: FERANNDO us Ang Ulloa MD IMG XR PROCEDURES Final Result * POCT Rapid Influenza B BROWN ID NOW (08/01/2025 10:24 AM EST) Influenza B Negative Negative, Indeterminate [facility] QC Media Lot # [id number] [facility] Lot# Expiration Date [facility] Swab 08/01/2025 10:2 4 AM EST us Ang Ulloa MD POINT OF CARE TEST ENTER/EDIT OR DERABLES Final Result Performing Organization Address [facility]/ZIP Co de Phone Number [facility] [address] [place] [phone] * POCT Rapid Influenza A BROWN ID NOW (08/01/2025 10:24 AM EST) Influenza A Negative Negative, Indeterminate [facility] QC Media Lot # [id number] [facility] Lot# Expiration Date [facility] Swab 08/01/2025 10:2 4 AM EST us Ang Ulloa MD POINT OF CARE TEST ENTER/EDIT OR DERABLES Final Result Performing Organization Address [facility]/ZIP Co de Phone Number [facility] [address] [place] [phone] * POCT Rapid Covid-19 BROWN ID NOW (08/01/2025 10:09 AM EST) Coronavirus Antigen PCR Negative Negative, Indeterminate, None Detected, Invalid, Specimen unsatisfactory for evaluation, Weakly Positive, 2+ QC Media Lot # [id number] Lot# Expiration Date [id number] Swab 08/01/2025 10:0 9 AM EST Ang Ulloa MD POINT OF CARE TEST ENTER/EDIT OR DERABLES Final Result * XR KUB and Upright 2 Views (06/23/2025 9:53 PM EDT) Anatomical Region Laterality Modality Radiographic Nicolasa ging 06/23/2025 9:53 PM EDT Narrative 06/23/2025 9:56 PM EDT [address] [address] XRay Report Signed Patient: Edilma Méndez MR#: [id number] : 1945 Acct:[id number] Age/Sex: 80 / F ADM Date: 06/23/25 Loc: HO.ED Attending Dr: Ordering Physician: Kesha Wolf Date of Service: 06/23/25 Procedure(s): XR KUB Accession Number(s): [id number] cc: Tiffany Kent MD; Kesha Wolf Reason for Exam: pain CLINICAL HISTORY: pain 1 view abdomen Comparison: None provided Findings: No pneumoperitoneum or pneumatosis. No abnormal calcifications. Right upper quadrant multiple surgical clips, likely related to cholecystectomy. No acute fractures. IMPRESSION: No acute disease. This document has been electronically signed by: Eli Fry MD on 06/23/2025 21:53:56 Dictated By: Eli Fry MD Signed By: <Electronically signed by Eli Fry MD in OV> 06/23/252154 DD/ 52 TD/TT: 06/23/252152 Yarn Handler: Procedure Note Donotuseinterpreter, Image - 06/23/[address] [address] XRay Report Signed Patient: Esther Méndez#: [id number] : 5Acct:[id number] Age/Sex: 80 / FADM Date: 06/23/25 Loc: HO.ED Attending Dr: Ordering Physician: Kesha Wolf Date of Service: 06/23/25 Procedure(s): XR KUB Accession Number(s): [id number] cc: Tiffany Kent MD; Kesha Wolf Reason for Exam: pain CLINICAL HISTORY: pain 1 view abdomen Comparison: None provided Findings: No pneumoperitoneum or pneumatosis. No abnormal calcifications. Right upper quadrant multiple surgical clips, likely related to cholecystectomy. No acute fractures. IMPRESSION: No acute disease. This document has been electronically signed by: Eli Fry MD on 06/23/2025 21:53:56 Dictated By: Eli Fry MD Signed By: <Electronically signed by lEi Fry MD in OV> 06/23/252154 DD/ 52 TD/TT: 06/23/252152 Yarn Handler: [facility] External Provider IMG XR PROCEDURES Edited Result - Final * (ABNORMAL) Urinalysis Complete (06/23/2025 9:29 PM EDT) Color Urine Yellow [facility] Appearance Urine Clear [facility] PH 6.0 5.0 - 9.0 [facility] Glucose Urine UA Negative Negative mg/dL [facility] Urine Blood Negative Negative [facility] Specific [place] - Urine 1.010 1.005 - 1.025 [facility] Urine Protein Negative Neg-Trace mg/dL [facility] Urine Ketones Negative Negative mg/dL [facility] Nitrite Urine Negative Negative [facility] Leukocyte Esterase Urine Trace(A) Negative [facility] RBC Urine 0-2 0 - 2 /HPF [facility] Urine WBC 0-5 0 - 5 /HPF [facility] Urine Squamous Epithelial Cell 0-2 0 - 2 /HPF [facility] Urine Bacteria None Seen None Seen [facility] Hyaline Casts, Urine 0-2 0 - 2 /LPF [facility] 06/23/2025 9:29 PM EDT 06/23/2025 9:34 PM EDT us Generic External Data Provider LAB URINE ORDERAB LES Final Result [facility] [address] [place] [address] [phone] * COVID-19 ID NOW (BROWN) (06/23/2025 3:57 PM EDT) IDNOW SERIAL# [id number] [facility] COVID-19 TEST Negative Negative [facility] COVID-19 NOTE See Note [facility] Comment: Results are for the identification of SARS-CoV2 RNA. TheSARS-CoV2 RNA is generally detectable in respiratory samplesduring the acute phase of infection. Positive results areindicative of the presence of SARS-CoV-2 RNA; clinicalcorrelation with patient history and other diagnosticinformation is necessary to determine patient infectionstatus. Positive results do not rule out bacterial infectionor co- infection with other viruses.Testing facilities within the [facility] and [facility] are required to report all positive results tothe appropriate public health authorities.Negative results should be treated as presumptive and, ifinconsistent with clinical signs and symptoms or necessaryfor patient management, should be tested with differentauthorized or cleared molecular tests. Negative results donot preclude SARS-CoV2 RNA infection and should not be usedas the sole basis for patient management decisions. Negativeresults should be considered in the context of a patient'srecent exposures, history and the presence of clinical signsand symptoms consistent with COVID-19.This test has been authorized by the FDA under an EmergencyUse Authorization (EUA) for use by authorized laboratories.Testing performed on the Brown ID NOW utilizing NAAT. 06/23/2025 3:57 PM EDT 06/23/2025 4:12 PM EDT us Generic External Data Provider LAB MOLECULAR CYNTHIA GNOSTICS ORDERABLES Final Result Performing Organization Address [facility]/ZIP Co de Phone Number [facility] [address] [place] [address] [phone] * High Sensitivity Troponin I (06/23/2025 3:57 PM EDT) [facility] TROPONIN I HIGH SENSITIVITY <2.7 <3.5 - 17.0 ng/L [facility] Comment:The Brown high sens itivity Troponin-I results should beused in conjunction with other diagnostic information suchas ECG, clinical observations and information, and patientsymptoms to aid in the diagnosis of IA. 06/23/2025 3:57 PM EDT 06/23/2025 4:12 PM EDT us Generic External Data Provider LAB BLOOD ORDERAB LES Final Result Performing Organization Address [facility] Co de Phone Number [facility] [address] [place] [phone] * (ABNORMAL) CBC auto differential (06/23/2025 3:57 PM EDT) [facility] White Blood Count 4.9 4.8 - 10.8 X10*3/uL [facility] Red Blood Count 4.33 4.20 - 5.50 X10*6/uL [facility] Hemoglobin 12.6 12.0 - 16.0 g/dl [facility] Hematocrit 37.5 37.0 - 47.0 % [facility] Mean Corpuscular Volume 86.6 80.0 - 98.0 fL [facility] Mean Corpuscular Hemoglobin 29.1 27.0 - 33.0 pg [facility] Mean Corpuscular HGB Conc 33.6 31.0 - 35.0 g/dl [facility] Red Cell Distribution Width 13.0 11.0 - 16.0 % [facility] Platelet Count 196 160 - 400 X10*3/uL [facility] Mean Platelet Volume 10.7 9.4 - 12.3 fL [facility] Neutrophils Percent Auto 49.8 45 - 73 % [facility] Imm Gran Pct Auto 0.4 0.0 - 0.4 % [facility] Lymphocytes Percent Auto 33.6 20 - 40 % [facility] Monocytes Percent Auto 10.9 2 - 11 % [facility] Eosinophils Percent Auto 4.7(H) 0 - 4 % [facility] Basophils Percent Auto 0.6 0 - 2 % [facility] NRBC Pct Auto 0.0 0.0 - 0.2 /100WBC [facility] Neutrophils Absolute Auto 2.4 2.0 - 8.3 x10*3/uL [facility] Imm Gran Abs Auto 0.02 0.00 - 0.03 X10*3/uL [facility] Lymphocytes Absolute Auto 1.6 1.2 - 4.9 X10*3/uL [facility] Monocytes Absolute Auto 0.5 0.1 - 1.2 X10*3/uL [facility] Eosinophils Absolute Auto 0.2 0.0 - 0.4 X10*3/uL [facility] Basophils Absolute Auto 0.0 0.0 - 0.2 X10*3/uL [facility] NRBC Abs Auto 0.000 0.0 - 0.012 X10*3/uL [facility] 06/23/2025 3:57 PM EDT 06/23/2025 4:12 PM EDT us Generic External Data Provider LAB BLOOD ORDERAB LES Final Result [facility] [address] [place] [phone] * Lipase (06/23/2025 3:57 PM EDT) Lipase 37 8 - 78 U/L [facility] 06/23/2025 3:57 PM EDT 06/23/2025 4:12 PM EDT us Generic External Data Provider LAB BLOOD ORDERAB LES Final Result [facility] [address] [place], [place] [phone] * (ABNORMAL) Comprehensive Metabolic Panel (06/23/2025 3:57 PM EDT) Only the most recent of2 resultswithin the time period is included. Sodium 138 135 - 145 mmol/L [facility] Potassium 4.7 3.3 - 5.1 mmol/L [facility] Chloride 107 96 - 108 mmol/L [facility] Carbon Dioxide 25 22 - 29 mmol/L [facility] Anion Gap 11(L) 12 - 20 [facility] Urea Nitrogen (BUN) 27(H) 9 - 16 mg/dL [facility] Creatinine, Serum 1.03 0.5 - 1.4 mg/dL [facility] Creatinine Clr Calc Pharmacy 34.4 [facility] Comment:Provided height and weight: 157.48 cm,52.163 kg.eGFR (calculated from the MDRD study equation) and eCrCl(calculated from the Cockcroft-Gault equation) are based ondifferent parameters and may not yield comparable results.If eCrCl result is absurd, please check patient'sheight/weight. Estimated Glomerular Filt Rate 52 [facility] Comment:Chronic Kidney Disea se: Estimated GFR < 60 mL/min/1.70q2Falued Kidney Disease: Estimated GFR < 15 mL/min/1.73m2 Glucose 119(H) 60 - 115 mg/dL [facility] Calcium 9.3 8.4 - 10.2 mg/dL [facility] Bilirubin, Total 0.4 0.0 - 1.0 mg/dL [facility] Aspartate Amino Transferase 29 5 - 31 U/L [facility] Alanine Aminotransferase 23 0 - 31 U/L [facility] Total Protein 6.8 6.5 - 8.0 g/dL [facility] Albumin Level 4.1 3.5 - 5.0 g/dL [facility] Alkaline Phosphatase 151(H) 39 - 117 U/L [facility] 06/23/2025 3:57 PM EDT 06/23/2025 4:12 PM EDT Generic External Data Provider LAB BLOOD ORDERAB LES Final Result [facility] [address] [place] [address] [phone] * POCT glucose manually resulted (06/15/2025 10:35 AM EDT) Glucose Blood, POC 105 60 - 200 mg/dL QC Media Lot # [id number] Lot# Expiration Date [id number] Blood Capillary blood specimen / Unknown 06/15/2025 10:35 AM EDT Tiffany Kent MD POINT OF CARE TEST ENTER/E DIT ORDERABLES Final Result * (ABNORMAL) POCT glycosylated hemoglobin (Hgb A1c) (06/15/2025 10:34 AM EDT) Hemoglobin A1C 6.0(A) 4.0 - 5.7 % QC Media Lot # [id number] Lot# Expiration Date [id number] Blood Capillary blood specimen / Unknown 06/15/2025 10:34 AM EDT Tiffany Kent MD POINT OF CARE TEST ENTER/E DIT ORDERABLES Final Result * (ABNORMAL) CBC (05/02/2025 8:55 PM EDT) White Blood Count 4.3(L) 4.8 - 10.8 X10*3/uL [facility] Red Blood Count 4.23 4.20 - 5.50 X10*6/uL [facility] Hemoglobin 12.3 12.0 - 16.0 g/dl [facility] Hematocrit 37.3 37.0 - 47.0 % [facility] Mean Corpuscular Volume 88.2 80.0 - 98.0 fL [facility] Mean Corpuscular Hemoglobin 29.1 27.0 - 33.0 pg [facility] Mean Corpuscular HGB Conc 33.0 31.0 - 35.0 g/dl [facility] Red Cell Distribution Width 12.9 11.0 - 16.0 % [facility] Platelet Count 185 160 - 400 X10*3/uL [facility] Mean Platelet Volume 10.7 9.4 - 12.3 fL [facility] NRBC Pct Auto 0.0 0.0 - 0.2 /100WBC [facility] NRBC Abs Auto 0.000 0.0 - 0.012 X10*3/uL [facility] 05/02/2025 8:55 PM EDT 05/02/2025 8:59 PM EDT us Generic External Data Provider LAB BLOOD ORDERAB LES Final Result Performing Organization Address [facility] Co de Phone Number [facility] [address] [place] [phone] * Albumin, Random Urine W/Creatinine (04/17/2024 8:35 AM EDT) Creatinine, Urine 111.68 mg/dL [facility] Microalbumin Urine 9.0 mg/L [facility] Microalbum Creatinine Ratio Ur 8.0 <30 ug/mg cr [facility] Comment:Albumin/Creatinine R atio Reference Ranges: Normal: < 30 ug/mg creatinine Microalbuminuria: 30 - 300 ug/mg creatinineClinical Albuminuria: > 300 ug/mg creatinine Urine 04/17/2024 8:35 AM EDT 04/17/2024 11:52 AM EDT us Tiffany Kent MD LAB URINE ORDERABLES Final Result Performing Organization Address [facility]/ZIP Co de Phone Number [facility] [address] [place] [phone] * Lipid Panel, Standard (04/17/2024 8:35 AM EDT) Triglycerides 107 <150 mg/dL [facility] Comment:Desirable Triglyceri de: less than 150 mg/dLBorderline High Triglyceride 150-199 mg/dLHigh Triglyceride: 200-499 mg/dLVery High Triglyceride: greater than or equal to 5OO mg/dL Cholesterol 115 <200 mg/dL [facility] Comment:Desirable Cholestero l: less than 200 mg/dLBorderline High Cholesterol: 200-239 mg/dLHigh Cholesterol: greater than 239 mg/dL LDL Cholesterol Calculated 40 <100 mg/dL [facility] Comment:Desirable LDL: less than 100 mg/dLNear Optimal/Above Optimal LDL: 110- 129 mg/dLBorderline High LDL: 130-159 mg/dLHigh LDL: 160-189 mg/dLVery High LDL: greater than or equal to 190 mg/dL HDL Cholesterol 54 >40 mg/dL [facility] Comment:Desirable HDL: great er than 40 mg/dL Note: This HDL assay may give artificially low results in patients with liver disease. Blood Venous blood specimen / Unknown 04/17/2024 8:35 AM EDT 04/17/2024 11:37 AM EDT Tiffany Kent MD LAB BLOOD ORDERABLES Final Result [facility] [address] [place] [phone] * Diabetes Eye Exam (02/18/2023) Eye Exam Normal Normal Comment:Dr. Palencia Historical Provider HEALTH MAINTENANCE Final Result from Last 3 Months or Most Recently Relevant to Health Maintenance Additional Health Concerns Active Problems Noted Date Diagnosed Date Help patients manage their type 2 diabetes 08/01 Weekly blood pressure task 08/01/2025 Help patients manage their type 2 diabetes 08/01 Patient has chronic kidney disease 08/01/2025 Weekly blood pressure task 08/01/2025 Patient has chronic kidney disease 08/01/2025 Insurance [id number] (HMO D-SNP) [place] [id number] Advance Directives Documents on File Type Date Recorded Patient Conference Coordinator Expl anation Advance Directives and Living Will 07/20/2024 1:20 PM Health Care Proxy Care Teams Terminal Superintendent Relationship Specialty Start Date End Date [place], MD Tiffany [address], [place] PCP - General Family Medicine 09/27/13 Cy Perdue MD [address] [place] [address] Cardiology 12/12/24 Dr. Phelps Psychiatry 02/21/25
--- OUTSIDE RECORDS SUMMARY | 2025-08-01 12:58 | XMS_ITS | Encounter Summary ---
Author Organization [employer] Address [address] [place] [address] Care Team Providers Care Chilling Hood Operator Name Role Phone Tiffany Kent MD Primary Care Provider [phone] Cy Perdue MD Unavailable [phone] Reason for Visit * Reason Comments Med Refill Encounter Details Date Type Department Care Team ([facility] Contact Info) Description 09/10/2023 Refill [facility] [address] [place] [address] Tiffany Kent MD [address] [place], [place] [phone] Social History Tobacco Use Types Packs/Day Years [...] on filedocumented in this encounter Care Teams Chilling Hood Operator Relationship Specialty Start Date End Date Tiffany Kent MD [address] [place] [address] PCP - General Family Medicine 09/27/13 Cy Perdue MD [address] [place] [address] Cardiology 12/12/24 Dr. Phelps Psychiatry 02/21/25 documented as of this encounter
== END 2025-08-01 10:45 | disposition home or self-care (01) ==
LOC: HO.HHCX 10:44
PROVIDERS: PCP Family Medicine; Visit Provider Emergency Medicine
DX: R05.9 Cough, unspecified (principal)
CPT/HCPCS: 71046

== ENCOUNTER → 2025-08-01 10:51 | Outpatient (BNV) | payer OTHER, SELFPAY | PROVIDERS: PCP Family Medicine; Visit Provider Radiology Diagnostic Radiology | DX: R05.9 Cough, unspecified (principal); R06.02 Shortness of breath | CPT/HCPCS: 71046 ==

== ENCOUNTER 2025-08-05 16:27 | Emergency (ER) | payer OTHER, SELFPAY ==
--- OUTSIDE RECORDS SUMMARY | 2025-08-01 09:40 | XMS_ITS | Encounter Summary ---
Author Organization [employer] Address [address] [place] [address] Care Team Providers Care Toe Former Stitchdowns Name Role Phone Tiffany Kent MD Primary Care Provider [phone] Cy Perdue MD Unavailable [phone] Reason for Visit * Reason Comments Cough Nasal Congestion Encounter Details Date Type Department Care Team ([facility] Contact Info) Description 08/01/2025 9:40 AM EST Office Visit [facility] [address] [place] [address] Ang Miner MD [address] [place] [address] COPD exacerbation (CMS/HCC) ([facility]) (Primary Dx); Cough in adult; Nasal congestion Social History Tobacco Use Types Packs/Day Years Used Date Smoking Tobacco: Never Passive Smoke Exposure: Never Smokeless Tobacco: Never Tobacco Cessation:Counseling Given: [...] Sign Reading Time Taken Comments Blood Pressure 125/75 08/01/2025 9:51 AM EST Pulse 70 08/01/2025 9:51 AM EST Temperature 37.1 C (98.7 F) 08/01/2025 9:51 AM EST Respiratory Rate 16 08/01/2025 9:51 AM EST Oxygen Saturation 95% 08/01/2025 10:11 AM EST Inhaled Oxygen Concentration - - Weight 52.7 kg (116 lb 4 oz) 08/01/2025 9:51 AM EST Height 147.3 cm (4' 10 ) 08/01/2025 9:51 AM EST Body Mass Index 24.3 08/01/2025 9:51 AM EST documented in this encounter Progress Notes * Ang Miner MD - 08/01/2025 9:40 AM EST Subjective Patient ID: Edilma Méndez is a 80 y.o. female. Lean Manager: Kosta Here with daughter, who is her ASSOCIATE MEDIA DIRECTOR. HPI Edilma has 1 week h/o dry cough, wheezing, SOB. No fever, chills, n/v/d, or chest pain.. Using Advair, Incruse Ellipta. States has not had albuterol HFA or nebulizer form a long time . Lives with . Never smoked. Taking Eliquis for h/o pulmonary embolism. Patient Active Problem List Diagnosis Date Noted Stage 3b chronic kidney disease ([facility]) ([facility]) 07/24/2025 Depression, recurrent ([facility]) 07/19/2024 Severe dementia with other behavioral disturbance, unspecified dementia type ([facility]) ([facility]) 04/13/2024 Multinodular goiter (nontoxic) 06/07/2023 Right-sided low back pain with right-sided sciatica 06/07/2023 History of pulmonary embolism 09/24/2022 Chronic pain 09/23/2022 Acute non-ST elevation myocardial infarction (NSTEMI) ([facility]) 03/03/2022 Anemia 03/03/2022 Arteriosclerosis of coronary artery 03/03/2022 Thyroid nodule 03/03/2022 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 Chronic obstructive lung disease ([facility]) 11/16/2012 Hyperlipidemia 11/16/2012 Essential hypertension 11/16/2012 Osteopenia 11/16/2012 Recurrent major depressive disorder, in partial remission ([facility]) 05/18/2012 Type 2 diabetes mellitus with stage 3b chronic kidney disease, without long-term current use of insulin ([facility]) 05/18/2012 Gastroesophageal reflux disease 05/18/2012 Other specified health status 03/04/2023 Right hip pain 10/06/2022 Urinary incontinence 09/24/2022 The following portions of the chart were reviewed this encounter and updated as appropriate: Tobacco Allergies Meds Problems Med Hx Surg Hx Fam Hx Review of Systems Constitutional: Negative for chills and fever. Respiratory: Positive for cough, shortness of breath and wheezing. Cardiovascular: Negative for chest pain. Gastrointestinal: Negative for abdominal pain. Skin: Negative for rash. Neurological: Negative for headaches. Objective Physical Exam Constitutional: Appearance: Normal appearance. HENT: Right Ear: Tympanic membrane, ear canal and external ear normal. Left Ear: Tympanic membrane, ear canal and external ear normal. Nose: Nose normal. Mouth/Throat: Mouth: Mucous membranes are moist. Pharynx: Oropharynx is clear. Eyes: Pupils: Pupils are equal, round, and reactive to light. Comments: Bilateral pterygium Cardiovascular: Rate and Rhythm: Normal rate and regular rhythm. Heart sounds: No murmur heard. Pulmonary: Effort: Pulmonary effort is normal. Breath sounds: Wheezing (mild diffuse bilat expiratory) present. Musculoskeletal: General: Normal range of motion. Cervical back: No tenderness. Skin: Findings: No rash. Neurological: Mental Status: She is alert. Gait: Gait is intact. Psychiatric: Mood and Affect: Mood normal. Behavior: Behavior normal. Procedures Assessment/Plan Diagnoses and all orders for this visit: COPD exacerbation ([facility]) ([facility]) Negative rapid Covid and Influenza tests. Given albuterol nebulizer with improvement on reexam. Chest x-ray ordered. Continue Incruse Ellipta and Advair. Prescribed albuterol HFA with spacer, albuterol solution for nebulizer, and prednisone. Monitor home blood glucose levels while taking prednisone. The patient was prescribed a nebulizer from the DME vendor [employer]. Instructions on how to use the nebulizer were provided. Return to clinic if not improving - albuterol (2.5 MG/3ML) 0.083% nebulizer solution 2.5 mg - POCT Rapid Influenza B BROWN ID NOW - POCT Rapid Influenza A BROWN ID NOW - POCT Rapid Covid-19 BROWN ID NOW - XR Chest 2 Views; Future - POCT Rapid Influenza B BROWN ID NOW - POCT Rapid Influenza A BROWN ID NOW - POCT Rapid Covid-19 BROWN ID NOW documented in this encounter Plan of Treatment Not on file documented as of this encounter Goals Goal Patient Goal Type Associated Problems Recent Progress Patient-Stated? Author Help patients manage their type 2 diabetes Care Plan Help patients manage their type 2 diabetes Kosta Huffman MA Weekly blood pressure task Care Plan Weekly blood pressure task Kosta Huffman MA Help patients manage their type 2 diabetes Care Plan Help patients manage their type 2 diabetes Kosta Huffman MA Patient has chronic kidney disease Care Plan Patient has chronic kidney disease Kosta Huffman MA Weekly blood pressure task Care Plan Weekly blood pressure task No Kosta Hernandez MA Patient has chronic kidney disease Care Plan Patient has chronic kidney disease No Kosta Hernandez MA Weekly blood pressure task Care Plan Weekly blood pressure task Ang Weldon MD Weekly blood pressure task Care Plan Weekly blood pressure task Ang Weldon MD Patient has chronic kidney disease Care Plan Patient has chronic kidney disease Ang Weldon MD Patient has chronic kidney disease Care Plan Patient has chronic kidney disease Ang Weldon MD documented as of this encounter Procedures Procedure Name Priority Date/Time Associated Diagnosis Comments XR CHEST 2 VIEWS Routine 08/01/2025 11:2 3 AM EST Cough in adult POCT INFLUENZA B (ID NOW RAPID MOLECULAR) Routine 08/01/2025 10:24 AM EST Nasal congestion Cough in adult POCT INFLUENZA A (ID NOW RAPID MOLECULAR) Routine 08/01/2025 10:24 AM EST Nasal congestion Cough in adult POCT COVID-19 AG BROWN ID NOW Routine 08/01/2025 10:09 AM EST Nasal congestion Cough in adult documented in this encounter Results * XR Chest 2 Views (08/01/2025 11:23 AM EST) Anatomical Region Laterality Modality Chest Radiographic Nicolasa ging 08/01/2025 11:2 3 AM EST Narrative 08/01/2025 11:52 AM EST [address] [address] XRay Report Signed Patient: Edilma Méndez MR#: [id number] : 1945 Acct:[id number] Age/Sex: 80 / F ADM Date: 08/01/25 Loc: HO.HHCX Attending Dr: Ang Miner MD Ordering Physician: ANG MINER MD Date of Service: 08/01/25 Procedure(s): XR chest 2V Accession Number(s): [id number] cc: ANG MINER MD; Tiffany Kent MD Reason for Exam: cough, SOB EXAMINATION: XR CHEST CLINICAL INFORMATION: cough, SOB COMPARISON: Previous chest x-ray most recent June 2025 TECHNIQUE: 2 views of the chest were obtained. FINDINGS: Question increased central bronchial markings and interstitial prominence at the lung bases similar to recent June 2025 exam. No lobar consolidation. No pleural effusion or pneumothorax. Cardiac and mediastinal contours are stable. Degenerative changes of the spine. XR/XR chest 2V IMPRESSION: Question increased central bronchial markings and interstitial prominence at the lung bases. This is similar to recent June 23, 2024 exam. This may represent airways disease. Differential would include an atypical interstitial pneumonia. No lobar consolidation. Electronically signed by: Court Zhong MD 08/01/2025 11:48 AM EST Dictated By: Court Zhong MD Signed By: <Electronically signed by Court Zhong MD in OV> 08/01/25 1148 DD/ 1123 TD/TT: 08/01/25 1138 Transit Department Clerk: FERNANDO Procedure Note Donotuseinterpreter, Image - 08/01/2025 [place] [address] XRay Report Signed Patient: Esther Mnédez#: [id number] : 5Acct:[id number] Age/Sex: 80 / FADM Date: 08/01/25 Loc: HO.HHCX Attending Dr: Ang Miner MD Ordering Physician: ANG MINER MD Date of Service: 08/01/25 Procedure(s): XR chest 2V Accession Number(s): [id number] cc: ANG MINER MD; Tiffany Kent MD Reason for Exam: cough, SOB EXAMINATION: XR CHEST CLINICAL INFORMATION: cough, SOB COMPARISON: Previous chest x-ray most recent June 2025 TECHNIQUE: 2 views of the chest were obtained. FINDINGS: Question increased central bronchial markings and interstitial prominence at the lung bases similar to recent June 2025 exam. No lobar consolidation. No pleural effusion or pneumothorax. Cardiac and mediastinal contours are stable. Degenerative changes of the spine. XR/XR chest 2V IMPRESSION: Question increased central bronchial markings and interstitial prominence at the lung bases. This is similar to recent June 23, 2024 exam. This may represent airways disease. Differential would include an atypical interstitial pneumonia. No lobar consolidation. Electronically signed by: Court Zhong MD 08/01/2025 11:48 AM EST RP Dictated By: Court Zhong MD Signed By: <Electronically signed by Court Zhong MD in OV> 08/01/25 1148 DD/ 1123 TD/TT: 08/01/25 1138 Transit Department Clerk: FERNANDO us Ang Miner MD IMG XR PROCEDURES Final Result * POCT Rapid Influenza A BROWN ID NOW (08/01/2025 10:24 AM EST) Influenza A Negative Negative, Indeterminate [facility] QC Media Lot # [id number] [facility] Lot# Expiration Date [facility] Swab 08/01/2025 10:2 4 AM EST us Ang Miner MD POINT OF CARE TEST ENTER/EDIT OR DERABLES Final Result Performing Organization Address [facility] Co de Phone Number [facility] [address] [place] [phone] POCT Rapid Influenza B BROWN ID NOW (08/01/2025 10:24 AM EST) Influenza B Negative Negative, Indeterminate [facility] QC Media Lot # [id number] [facility] Lot# Expiration Date [facility] Swab 08/01/2025 10:2 4 AM EST us Ang Miner MD POINT OF CARE TEST ENTER/EDIT OR DERABLES Final Result Performing Organization Address [facility] Co de Phone Number [facility] [address] [place] [phone] * POCT Rapid Covid-19 BROWN ID NOW (08/01/2025 10:09 AM EST) Coronavirus Antigen PCR Negative Negative, Indeterminate, None Detected, Invalid, Specimen unsatisfactory for evaluation, Weakly Positive, 2+ QC Media Lot # [id number] Lot# Expiration Date [id number] Swab 08/01/2025 10:0 9 AM EST Ang Miner MD POINT OF CARE TEST ENTER/EDIT OR DERABLES Final Result documented in this encounter Visit Diagnoses Diagnosis COPD exacerbation (CMS/HCC) (HCC)- Primary Obstructive chronic bronchitis with exacerbation Cough in adult Nasal congestion Other diseases of nasal cavity and sinuses documented in this encounter Administered Medications Inactive Administered Medications - up to 3 most recent administrations Medication Order MAR Action Action Date Dose Rate Site albuterol (2.5 MG/3ML) 0.083% nebulizer solution 2.5 mg 2.5 mg, Nebulization, Once, On Wed08/01/25 at 1030, For 1 doseIndications:COPD exacerbation (CMS/HCC) (HCC) Given 08/01/2025 10:30 AM EST 2.5 mg documented in this encounter Additional Health Concerns [...] 08/01/2025 Patient has chronic kidney disease 08/01/2025 Assessment Noted Time PHQ-9 Depression Total Score: 1 06/15/20 10:49 AM EDT documented as of this encounter Care Teams Toe Former [employer] Relationship Specialty Start Date End Date Tiffany Kent MD [address] [place] [address] PCP - General Family Medicine 09/27/13 Cy Perdue MD [address] [place] [address] Cardiology 12/12/24 Dr. Pehlps Psychiatry 02/21/25 documented as of this encounter
--- NOTE | ~2025-08-05 | XR_ITS ---
CLINICAL HISTORY: cough 2 view chest x-ray. Comparison: 08/01/2025 Findings: No consolidation or effusion. Cardiac and mediastinal contours are stable. Bones unremarkable. Impression: 1. No acute pulmonary disease. This document has been electronically signed by: Nikolas Muro MD on 08/05/2025 18:50:19
--- NOTE | ~2025-08-05 | CT_ITS ---
CLINICAL HISTORY: abd pain CT abdomen and pelvis with contrast Comparison: CT/UT/SR - CT ABDOMEN PELVIS WITH IV CONTRAST - 05/24/24 09:45 EDT Findings: Bibasilar atelectatic /dependent changes. Small hiatal hernia. Status post cholecystectomy. Moderate intra and extrahepatic ductal dilation with CBD measuring up to 1.1 cm in diameter. No radiopaque ductal stone is seen. Findings are unchanged in the interval. Unremarkable gallbladder and solid organs. No urolithiasis. No bowel obstruction, pneumoperitoneum, or pneumatosis. Pelvic contents unremarkable. Normal appendix. The bones are intact. IMPRESSION: No acute findings. Post cholecystectomy changes with stable distention of the biliary tree with CBD measuring up to 1.1 cm in diameter. This document has been electronically signed by: Eli Fry MD on 08/05/2025 22:19:45
[2025-08-05 16:36] VITALS: BP 148/80; PULSE 83; TEMP 37.1; O2SAT 94
[2025-08-05 16:38] VITALS: BP 162/78; PULSE 94; O2SAT 98
[2025-08-05 16:40] VITALS: BP 148/80; PULSE 82; RESP 16; TEMP 36.9; O2SAT 95; BMI 22.3
--- OUTSIDE RECORDS SUMMARY | 2025-08-05 17:16 | XMS_ITS | Encounter Summary ---
Author Organization [employer] Address [address] [place] [address] Care Team Providers Care Tank Worker Name Role Phone Tiffany Kent MD Primary Care Provider [phone] Cy Perdue MD Unavailable [phone] Encounter Details Date Type Department Care [...] chronic kidney disease No Ang Ulloa MD documented as of this encounter Visit Diagnoses [...] documented as of this encounter Care Teams Tank Worker Relationship Specialty Start Date End Date Tiffany Kent MD [address] [place] [address] PCP - General Family Medicine 09/27/13 Cy Perdue MD [address] [place] [address] Cardiology 12/12/24 Dr. Phelps Psychiatry 02/21/25 documented as of this encounter
--- OUTSIDE RECORDS SUMMARY | 2025-08-05 17:16 | XMS_ITS | Clinical Summary ---
Author Organization [facility] Address [address] [place] [address] Care Team Providers Care Gasket Notcher Name Role Phone Tiffany Kent MD Primary Care Provider [phone] Allergies No known active allergies Medications aspirin [...] Tobacco: Never Tobacco Cessation:Counseling Given: Not Answered [facility] Utilities Answer Date Recorded In the past 12 months has e [employer], [employer], [employer], or water [employer] threatened to shut off services in your [...] any time in the past 12 m [facility], were you homeless or living in a penitentiary (including now)? No 11/11/2024 Comments Unknown Sex [...] Inactivated Comments 11/10/2024 9:12 AM Care Teams Gasket Notcher Relationship Specialty Start Date End Date Tiffany Kent MD [address] [place] [phone] PCP - General Family Medicine 11/10/24
--- OUTSIDE RECORDS SUMMARY | 2025-08-05 17:16 | XMS_ITS | Encounter Summary ---
Author Organization [employer] Address [address] [place] [address] [address] [place] [address] Care Team Providers Care Equipment Operator Name Role Phone Tiffany Kent MD Primary Care Provider [phone] Cy Perdue MD Unavailable [phone] Encounter Details Date Type Department Care Team ([facility] st Contact Info) Description 06/09/2023 Orders Only [facility] [address] [place] [address] Tiffany Kent MD [address] [place], [place] [phone] Right-sided low back pain with right-sided sciatica, [...] type documented in this encounter Care Teams Equipment Operator Relationship Specialty Start Date End Date Tiffany Kent MD [address] [place] [address] PCP - General Family Medicine 09/27/13 Cy Perdue MD [address] [place] [address] Cardiology 12/12/24 Dr. Phelps Psychiatry 02/21/25 documented as of this encounter
--- OUTSIDE RECORDS SUMMARY | 2025-08-05 17:16 | XMS_ITS | Data Portability ---
Author Organization [employer] [facility], [facility] Address [address] [place] [address] Care Team Providers Care Instructor Looping Name Role Phone HIM CCA OTHER Assessment [...] ICD10 Code Diagnosis IMO Codes Diagnosis Note [id number] Katherine Chadwick MD Main - [facility] [address] [place] [phone] 08/24/2024 12:08:28 08/24/2024 12:43:33 Cough [id number] R05.9 79 year old female with COPD, [...] assessment and plan as documented by the powder room attendant. I provided real-time medical direction for this [...] Mario Member ID Guarantor Name 08/24/2024 1 [facility] - DOS ON OR AFTER 2022 - DUAL ELIGIBLE - SKILLED NURSING OPTIONS AND ONE CARE (MEDICARE REPLACEMENT/AD VANTAGE - HMO) Edilma Méndez [id number] Edilma Méndez Notes Date Note Type Note Provider Name and Address Organization Details Recorded Time 08/24/2024 text/html CRC Nurse Triage Notes (Darius Khan): Reason For Request: Patient is short of breath, and has a history of breathing problems, wants checked out. Chief Complaints: Breathing problems PMH: Hypertension, Gastroesophageal Reflux Disease (GERD), Anxiety Disorder, COPD/Asthma Comments: Corporate Webmaster verified the Pt.'s name//address and phone number. [...] ...................... ...................... ...................... ...................... ...................... ...................... ......... Chef Passenger Vessel Note From Sai Barajas: Dispatched to above address for cough, breathing problems. On arrival patient 79 y/o F, found sitting on cough, AOX4, airway patent, speaking in full sentences, good color, in no apparent distress. Patient Indonesian speaking only, family on scene to translate. [...] radial pulse, skin pink warm and dry. [facility] contacted, spoke with Dr. Chadwick, advised of patient complaints and exam findings. [facility] believes it is likely viral URI, recommends home care, rest and follow up with PCP should symptoms worsen or continue over the next week. Patient and family advised of [facility] recommendations, home care and red flags. Patient and family understand and agree with this plan. Patient and family have no additional questions or concerns at this time. SC8 clear. EOR. ...................... ...................... ...................... ...................... ...................... ...................... ......... [facility] Consulted: Katherine Chadwick ...................... ...................... ...................... ...................... ...................... ...................... ......... Disposition: Fadia Chadwick MD [address] [facility] [facility] [address], [place], [address], [employer] 08/24/2024 12:13:00 OBGyn Episode No OBEpisode recorded.
--- OUTSIDE RECORDS SUMMARY | 2025-08-05 17:16 | XMS_ITS | Encounter Summary ---
Author Organization [employer] Address [address] [place] [address] Care Team Providers Care Turbo Operator Name Role Phone Tiffany Kent MD Primary Care Provider [phone] Cy Perdue MD Unavailable [phone] Encounter Details Date Type Department Care Team ([facility] Contact Info) Description 08/01/2025 Results Follow-Up [facility] [address] [place] [address] Ang Ulloa MD [address] [place] [address] XR Chest 2 Views Social History Tobacco Use Types Packs/Day Years [...] the past 12 months, has t he [employer], gas, oil or water company threatened to [...] AM EDT documented as of this encounter Miscellaneous Notes * Telephone Encounter - Maddi Carson RN - 08/01/2025 3:51 PM EST TC placed to pt daughter and she was notified of the message below, she will below nut picker medication today ----- Message from Ang Ulloa MD sent at 08/01/2025 2:10 PM EST ----- Please notify Edilma that today's chest x-ray was read as possible atypical pneumonia. I sent prescription for doxycycline to the pharmacy to take for 1 week. She should return to clinic if not improving Thanks Livan ----- Message ----- From: Interface, Ris Results In Sent: 08/01/2025 11:52 AM EST To: Ang Ulloa MD documented in this encounter Plan of Treatment Not on file documented as of this encounter Goals Goal Patient Goal Type Associated Problems Recent Progress Patient-Stated? Author Help patients manage their type 2 diabetes Care Plan Help patients manage their type 2 diabetes No HernandezKosta bennett [place] Weekly blood pressure task Care Plan Weekly blood pressure task No HernandezAmira bennettuyomy, [place] Help patients manage their type 2 diabetes Care Plan Help patients manage their type 2 diabetes No HernandezAmira bennettuyomy, [place] Patient has chronic kidney disease Care Plan Patient has chronic kidney disease No HernandezAmirauyomy, [place] Weekly blood pressure task Care Plan Weekly blood pressure task No HernandezAmira bennettuymason [place] Patient has chronic kidney disease Care Plan Patient has chronic kidney disease No HernandezAmira bennettuyomy, [place] Weekly blood pressure task Care Plan [...] Weldon MD documented as of this encounter Visit [...] documented as of this encounter Care Teams Turbo Operator Relationship Specialty Start Date End Date Tiffany Kent MD [address] [place] [address] PCP - General Family Medicine 09/27/13 Cy Perdue MD [address] [place] [address] Cardiology 12/12/24 Dr. Phelps Psychiatry 02/21/25 documented as of this encounter
--- OUTSIDE RECORDS SUMMARY | 2025-08-05 17:17 | XMS_ITS | Clinical Summary ---
Author Organization [employer] Address [address] [facility] [address] [place] [address] Care Team Providers Care Image Assembler Name Role Phone Tiffany Kent MD Primary Care Provider [phone] Cy Perdue MD Unavailable [phone] Allergies Active Allergy Reactions Criticality Noted [...] coronary artery,Acute non-ST elevation myocardial infarction (NSTEMI) ([facility]) TAKE 1 TABLET BY MOUTH EVERY MORNING 90 tablet 3 5 Active metoprolol succinate XL (Toprol-XL) 25 MG 24 hr tabletIndication s:Essential hypertension,Art eriosclerosis of coronary artery,Acute non-ST elevation myocardial infarction (NSTEMI) ([facility]) TAKE 1 TABLET BY MOUTH EVERY MORNING [...] daily. 30 each 11 5 Active Umeclidinium [place] (Incruse Ellipta) 62.5 MCG/ACT aerosol powderIndication s:Pulmonary emphysema, unspecified emphysema type Inhale 1 Act (62.5 mcg) Once per day. 30 each 11 5 Active traZODone (Desyrel) 100 MG tabletIndication s:Severe dementia with other behavioral disturbance, unspecified dementia type (CMS/HCC) ([facility]) take 2-3 tablets by oral route every [...] tabletIndication s:Acute non-ST elevation myocardial infarction (NSTEMI) ([facility]) Place 1 tablet (0.4 mg) under the tongue every 5 (five) minutes if needed for chest pain. 30 tablet 5 Active donepezil (Aricept) 5 MG tabletIndication s:Severe dementia with other behavioral disturbance, unspecified dementia type (CMS/HCC) ([facility]) TAKE 1 TABLET BY MOUTH AT BEDTIME 90 tablet 3 5 Active montelukast (Singulair) 10 MG tabletIndication s:Mild intermittent asthma without complication TAKE 1 TABLET BY MOUTH EVERY EVENING 90 tablet 1 5 Active albuterol (2.5 MG/3ML) 0.083% nebulizer solution Take 3 mL (2.5 mg) by nebulization every 6 (six) hours if needed for wheezing or shortness of breath. 75 mL 1 08/01/2025 4:19 PM EST 5 026 Active albuterol 108 (90 Base) MCG/ACT inhaler Inhale 2 puffs every 4 (four) hours if needed for wheezing or shortness of breath. 18 g 1 08/01/2025 4:19 PM EST 5 026 Active Spacer/Aero-Hold ing Chambers (OptiChamber Vandana) misc 1 each every 4 (four) hours if needed (asthma). 1 each 08/01/2025 4:19 PM EST Active predniSONE (Deltasone) 20 MG tablet Take 2 tablets (40 mg) by mouth Once per day for 5 days. 10 tablet 08/01/2025 4:19 PM EST 5 025 Active Nebulizer misc 1 kit Every 4-6 hours as needed (wheezing/ SOB). Active doxycycline (Vibramycin) 100 MG capsule Take 1 capsule (100 mg) by mouth 2 times daily for 7 days. Take with at least 8 ounces (large glass) of water, do not lie down for 30 minutes after 14 capsule 08/01/2025 4:19 PM EST 5 025 Active Hospital, Clinic, or Other Facility Administered Medication Ordered Dose Route Frequency Start Date End Date Status albuterol (2.5 MG/3ML) 0.083% nebulizer solution 2.5 mgIndications:COPD exacerbation (CMS/HCC) ([facility]) 2.5 mg NEBULIZATION Once 08/01/2025 08/01/2025 Ended Active Problems Patient Care Coordination No te Formatting of this note migh t be different from the original. [facility] Social Services Manager: Mikayla Julia Support Agency: [facility] Problem Noted Date Diagnosed Date Stage 3b chronic kidney disease ([facility]) 2024 Overview (07/24/2025): Lab Results Component Value Date CREATININE 1.03 06/23/2025 CREATININE 0.99 05/02/2025 CREATININE 0.86 06/21/2024 CREATININE 0.94 08/06/2022 CREATININE 1.02 04/14/2022 CREATININE 0.94 04/06/2022 EGFR 52 06/23/2025 EGFR 54 05/02/2025 EGFR >60 06/21/2024 MICROALBCREU 8.0 04/17/2024 -avoid nephrotoxic agents Depression, recurrent 07/19/2024 Severe dementia with other b ehavioral disturbance, unspecified dementia type ([facility]) 04/13/2024 Overview (02/21/2025): Per daughter, pt's short-term [...] [facility] on 05/02/2014. -Last Eye Exam at [facility] with Dr. Hutchison on 11/2022, will request most recent note. -has dentures -health care proxy 07/19/24 Assessment & Plan (06/15/2025 10:55 AM EDT): -Next annual evaluation due after 06/15/26 -MOLST was done with [facility] on 05/02/2014. -Last Eye Exam at [facility] with Dr. Hutchison on 11/2022, will request most recent note. -has dentures -health care proxy 07/19/24 Assessment & Plan (02/21/2025 9:29 AM EDT): -Next annual evaluation due after 07/19/25 -MOLST was done with [facility] on 05/02/2014. -Last Eye Exam at [facility] with Dr. Hutchison on 11/2022, will request most recent note. -has dentures -health care proxy 07/19/24 Assessment & Plan (07/19/2024 2:40 PM EDT): -Next annual evaluation due after 07/19/25 -MOLST was done with [facility] on 05/02/2014. -Last Eye Exam at [facility] with Dr. Hutchison on 11/2022, will request most recent note. -has dentures -health care proxy 07/19/24 Assessment & Plan (03/04/2023 9:17 AM EDT): Next PE due after March 04/2024 -MOLST was done with [facility] on 05/02/2014. -Last Eye Exam at [facility] with Dr. Martin on 11/2022, will request [...] (09/24/2022): -unprovoked pulmonary embolism -continue Eliquis for long term care administrator anticoagulation -discuss fall prcautions Assessment & Plan (06/15/2025 10:55 AM EDT): -unprovoked pulmonary embolism -continue Eliquis for assisted anticoagulation -discuss fall prcautions Assessment & Plan (02/21/2025 9:29 AM EDT): -unprovoked pulmonary embolism -continue Eliquis for long term care administrator anticoagulation -discuss fall prcautions Assessment & Plan (07/19/2024 2:44 PM EDT): -unprovoked pulmonary embolism -continue Eliquis for assisted anticoagulation -discuss fall prcautions Assessment & Plan (03/04/2023 8:54 AM EDT): -unprovoked pulmonary embolism -continue Eliquis for assisted anticoagulation -discuss fall prcautions Assessment & Plan (09/24/2022 11:56 AM EST): -unprovoked pulmonary embolism -continue Eliquis for long term care administrator anticoagulation -discuss fall prcautions Urinary incontinence 09/24/2022 [...] metoprolol and nitropaste. -admitted to [facility] 11/10/24 for chest pain with normal ECG, cardiac biomarkers mildly elevated but flat. -Patient followed at [facility] with Dr. Suzan Perdue DO., [...] metoprolol and nitropaste. -admitted to [facility] 11/10/24 for chest pain with normal ECG, cardiac biomarkers mildly elevated but flat. -Patient followed at [facility] with Dr. Suzan Perdue DO., [...] exam: followed by Dr. Irving Palencia of [facility] -Diabetic foot exam: done 07/19/24 [...] exam: followed by Dr. Irving Palencia of [facility] -Diabetic foot exam: done 07/19/24 [...] exam: followed by Dr. Irving Palencia of [facility] -Diabetic foot exam: done 07/19/24 [...] foods. Follow up if not resolved. Dementia (CMS/HCC) 03/03/2022 5 Overview (09/24/2022): Per daughter, pt's [...] Description 08/01/2025 9:40 AM EST Office Visit [facility] [address] [place] [phone] Ang Ulloa MD COPD exacerbation ([facility]) ([facility]) (Primary Dx); Cough in adult; Nasal congestion 08/01/2025 Results Follow-Up [facility] ROSSANA Parker [phone] Ang Ulloa MD XR Chest 2 Views 08/01/2025 Travel 07/23/2025 11:15 AM EST Telemedicine [facility] ROSSANA Parker [phone] Tiffany Kent MD Essential hypertension (Primary Dx) 07/23/2025 Travel 07/20/2025 Telephone [facility] ROSSANA Parker [phone] Tiffany Kent MD chartprep 06/23/2025 Orders Only GENERIC EXTERNAL DATA DEPARTMENT Provider, Generic External Data 06/19/2025 Refill [facility] Dakota Beltran [place] Bull [phone] Tiffany Kent MD Severe dementia with other behavioral disturbance, unspecified dementia type ([facility]); Mild intermittent asthma without complication 06/15/2025 10:30 AM EDT Office Visit [facility] ROSSANA Parker [phone] Tiffany Kent MD Type 2 diabetes mellitus without complication, with long-term current use of insulin ([facility]) (Primary Dx); Essential hypertension; Hyperlipidemia, unspecified hyperlipidemia type; Pulmonary emphysema, unspecified emphysema type ([facility]); Acute non-ST elevation myocardial infarction (NSTEMI) ([facility]); History of pulmonary embolism; Anemia, unspecified type; Thyroid nodule; Severe dementia with other behavioral disturbance, unspecified dementia type ([facility]); Encounter for immunization; Other specified health status 06/15/2025 Telephone [facility] ROSSANA Parker [phone] Tiffany Kent MD 06/15/2025 Travel 06/07/2025 Orders Only [facility] ROSSANA Parker [phone] Tiffany Kent MD Acute non-ST elevation myocardial infarction (NSTEMI) ([facility]) (Primary Dx); Arteriosclerosis of coronary artery; Hyperlipidemia, unspecified hyperlipidemia type; Essential hypertension 06/06/2025 Telephone [facility] [address] [place] [address] Tiffany Kent MD Referral 06/04/2025 Refill [facility] [address] [place] [address] Tiffany Kent MD from Last 3 Months Immunizations Immunization Administration [...] 06/15/2026 06/15/2025 Depression Screening 06/15/2026 06/15/2025, 06/15/20 25 Tobacco Screening 08/01/2026 08/01/2025 DTaP/Tdap/Td Vaccines (3 - Td or Tdap) 06/15/2035 06/15/2025, 09/03/2014, 06/01/2006, Additional history exists Hepatitis B Vaccines Completed 07/22/2012, 06/16/2011, 05/18/2011 Pneumococcal Vaccine: 50+ Years Completed 08/03/2016, 04/22/2015, 06/05/2014, Additional history exists Zoster Vaccines Completed 04/20/2022, 01/19, 02/14/2014 Influenza Vaccine Completed 06/15/2025, , 06/09/2023, Additional history exists HIB Vaccines Aged Out [...] patient's age to complete this topic Meningococcal B Vaccine Aged Out No l onger eligible based on patient's age to complete [...] chronic kidney disease No Ang Ulloa MD Procedures Procedure Name Priority Date/Time Associated Diagnosis [...] complication, with long-term current use of insulin ([facility]) POCT GLYCOSYLATED HEMOGLOBIN (HGB A1C) Routine 06/15/2025 10:34 AM EDT Type 2 diabetes mellitus without complication, with long-term current use of insulin (CMS/[facility]) ALBUMIN, RANDOM URINE W/CREATININE Routine 04/17/2024 8:35 AM EDT Type 2 diabetes mellitus without complication, without long-term current use of insulin (CMS/[facility]) LIPID PANEL, STANDARD Routine 04/17/2024 8:35 AM EDT Type 2 diabetes mellitus without complication, without long-term current use of insulin (CMS/HCC) HM DIABETES EYE EXAM Routine 02/18/2023 from Last 3 Months or Most Recently Relevant to Health Maintenance Results * XR Chest 2 Views (08/01/2025 11:23 AM EST) Only the most recent of2 resultswithin the time period is included. Anatomical Region Laterality Modality Chest Radiographic Nicolasa ging 08/01/2025 11:2 3 AM EST Narrative 08/01/2025 11:52 AM EST [address] XRay Report Signed Patient: Edilma Méndez MR#: [id number] : 1945 Acct:[id number] Age/Sex: 80 / F ADM Date: 08/01/25 Loc: [facility] Attending Dr: Ang Ulloa MD Ordering Physician: ANG ULLOA MD Date of Service: 08/01/25 Procedure(s): XR chest 2V Accession Number(s): [id number] cc: ANG ULLOA MD; Tiffany Kent MD [...] 08/01/25 1148 DD/ 1123 TD/TT: 08/01/25 1138 Cupola Tender: FERNANDO Procedure Note Donotuseinterpreter, Image - 08/01/[address] [address] XRay Report Signed Patient: Domenica MéndezR#: [id number] : 5Acct:[id number] Age/Sex: 80 / FADM Date: 08/01/25 Loc: KIRA Attending Dr: Ang Ulloa MD Ordering Physician: ANG ULLOA MD Date of Service: 08/01/25 Procedure(s): XR chest 2V Accession Number(s): [id number] cc: ANG ULLOA MD; Tiffany Kent MD [...] 08/01/25 1148 DD/ 1123 TD/TT: 08/01/25 1138 Cupola Tender: FERNANDO Ang Ulloa MD IMG XR PROCEDURES Final Result * POCT Rapid Influenza B BROWN ID NOW (08/01/2025 10:24 AM EST) Influenza B Negative Negative, Indeterminate [facility] QC Media Lot # [id number] [facility] Lot# Expiration Date [id number] [facility] Swab 08/01/2025 10:2 4 AM EST Ang Ulloa MD POINT OF CARE TEST ENTER/EDIT OR DERABLES Final Result [facility] [address] [place] [phone] * POCT Rapid Influenza A BROWN ID NOW (08/01/2025 10:24 AM EST) Influenza A Negative Negative, Indeterminate [facility] QC Media Lot # [id number] [facility] Lot# Expiration Date ,027 [facility] Swab 08/01/2025 10:2 4 AM EST us Ang Ulloa MD POINT OF CARE TEST ENTER/EDIT OR DERABLES Final Result [facility] [address] [place] [phone] * POCT Rapid Covid-19 BROWN ID NOW (08/01/2025 10:09 AM EST) Coronavirus Antigen PCR Negative Negative, Indeterminate, None Detected, Invalid, Specimen unsatisfactory for evaluation, Weakly Positive, 2+ QC Media Lot # [id number] Lot# Expiration Date ,334 Swab 08/01/2025 10:0 9 AM EST us Ang Ulloa MD POINT OF CARE TEST ENTER/EDIT OR DERABLES Final Result * XR KUB and Upright 2 Views (06/23/2025 9:53 PM EDT) Anatomical Region Laterality Modality Radiographic Nicolasa ging 06/23/2025 9:53 PM EDT Narrative 06/23/2025 9:56 PM EDT [address] [address] XRay Report Signed Patient: Edilma Méndez MR#: [id number] : 1945 Acct:[id number] Age/Sex: 80 / F ADM Date: 06/23/25 Loc: .ED Attending Dr: Ordering Physician: Kesha Wolf Date of Service: 06/23/25 Procedure(s): XR KUB Accession Number(s): [id number] cc: Tiffany Kent MD; Kesha Wolf Reason [...] in OV> 06/23/252154 DD/ 52 TD/TT: 06/23/252152 Cupola Tender: Procedure Note Donotuseinterpreter, Image - 06/23/2025 [place] [address] XRay Report Signed Patient: Esther Méndez#: [id number] : 5Acct:[id number] Age/Sex: 80 / FADM Date: 06/23/25 Loc: HO.ED Attending Dr: Ordering Physician: Kesha Wolf Date of Service: 06/23/25 Procedure(s): XR KUB Accession Number(s): [id number] cc: Tiffany Kent MD; Kesha Wolf Reason [...] in OV> 06/23/252154 DD/ 52 TD/TT: 06/23/252152 Cupola Tender: [facility] External Provider IMG XR PROCEDURES Edited Result - Final * (ABNORMAL) Urinalysis Complete (06/23/2025 9:29 PM EDT) Color Urine Yellow [facility] Appearance Urine Clear [facility] PH 6.0 5.0 - 9.0 [facility] Glucose Urine UA Negative Negative mg/dL [facility] Urine Blood Negative Negative [facility] Specific [place] - Urine 1.010 1.005 - 1.025 [facility] Urine Protein Negative Neg-Trace mg/dL [facility] Urine Ketones Negative Negative mg/dL [facility] Nitrite Urine Negative Negative [facility] Leukocyte Esterase Urine Trace(A) Negative [facility] RBC Urine 0-2 0 - 2 /HPF [facility] Urine WBC 0-5 0 - 5 /HPF [facility] Urine Squamous Epithelial Cell 0-2 0 - 2 /HPF [facility] Urine Bacteria None Seen None Seen [facility] Hyaline Casts, Urine 0-2 0 - 2 /LPF [facility] 06/23/2025 9:29 PM EDT 06/23/2025 9:34 PM EDT us Generic External Data Provider LAB URINE ORDERAB LES Final Result [facility] [address] [place] [phone] * COVID-19 ID NOW (BROWN) (06/23/2025 3:57 PM EDT) IDNOW SERIAL# [id number] [facility] COVID-19 TEST Negative Negative [facility] COVID-19 NOTE See Note [facility] Comment: Results are for the identification of SARS-CoV2 RNA. TheSARS-CoV2 RNA is generally detectable in respiratory samplesduring the acute phase of infection. Positive results areindicative of the presence of SARS-CoV-2 RNA; clinicalcorrelation with patient history and other diagnosticinformation is necessary to determine patient infectionstatus. Positive results do not rule out bacterial infectionor co- infection with other viruses.Testing facilities within the [facility] and itsterritories are required to report all positive results [...] use by authorized laboratories.Testing performed on the [employer] ID NOW utilizing NAAT. 06/23/2025 3:57 PM EDT 06/23/2025 4:12 PM EDT [employer] External Data Provider LAB MOLECULAR CYNTHIA GNOSTICS ORDERABLES Final Result Performing Organization Address [facility] Co de Phone Number [facility] [address] [place] [address] [phone] * High Sensitivity Troponin I (06/23/2025 3:57 PM EDT) [facility] TROPONIN I HIGH SENSITIVITY <2.7 <3.5 - 17.0 ng/L [facility] Comment:The Brown high sens itivity Troponin-I results should beused in conjunction with other diagnostic information suchas ECG, clinical observations and information, and patientsymptoms to aid in the diagnosis of SD. 06/23/2025 3:57 PM EDT 06/23/2025 4:12 PM EDT Generic External Data Provider LAB BLOOD ORDERAB LES Final Result Performing Organization Address [facility] Co de Phone Number [facility] [address] [place] [phone] * (ABNORMAL) CBC auto differential (06/23/2025 3:57 PM EDT) [facility] White Blood Count 4.9 4.8 - 10.8 X10*3/uL [facility] Red Blood Count 4.33 4.20 - 5.50 X10*6/uL [facility] Hemoglobin 12.6 12.0 - 16.0 g/dl [facility] Hematocrit 37.5 37.0 - 47.0 % [facility] Mean Corpuscular Volume 86.6 80.0 - 98.0 fL [facility] Mean Corpuscular Hemoglobin 29.1 27.0 - 33.0 pg [facility] Mean Corpuscular HGB Conc 33.6 31.0 - 35.0 g/dl [facility] Red Cell Distribution Width 13.0 11.0 - 16.0 % [facility] Platelet Count 196 160 - 400 X10*3/uL [facility] Mean Platelet Volume 10.7 9.4 - 12.3 fL [facility] Neutrophils Percent Auto 49.8 45 - 73 % [facility] Imm Gran Pct Auto 0.4 0.0 - 0.4 % [facility] Lymphocytes Percent Auto 33.6 20 - 40 % [facility] Monocytes Percent Auto 10.9 2 - 11 % [facility] Eosinophils Percent Auto 4.7(H) 0 - 4 % [facility] Basophils Percent Auto 0.6 0 - 2 % [facility] NRBC Pct Auto 0.0 0.0 - 0.2 /100WBC [facility] Neutrophils Absolute Auto 2.4 2.0 - 8.3 x10*3/uL [facility] Imm Gran Abs Auto 0.02 0.00 - 0.03 X10*3/uL [facility] Lymphocytes Absolute Auto 1.6 1.2 - 4.9 X10*3/uL [facility] Monocytes Absolute Auto 0.5 0.1 - 1.2 X10*3/uL [facility] Eosinophils Absolute Auto 0.2 0.0 - 0.4 X10*3/uL [facility] Basophils Absolute Auto 0.0 0.0 - 0.2 X10*3/uL [facility] NRBC Abs Auto 0.000 0.0 - 0.012 X10*3/uL [facility] 06/23/2025 3:57 PM EDT 06/23/2025 4:12 PM EDT us Generic External Data Provider LAB BLOOD ORDERAB LES Final Result Performing Organization Address City/[facility]/ZIP Co de Phone Number [facility] [address] [place] [phone] * Lipase (06/23/2025 3:57 PM EDT) Lipase 37 8 - 78 U/L [facility] 06/23/2025 3:57 PM EDT 06/23/2025 4:12 PM EDT Generic External Data Provider LAB BLOOD ORDERAB LES Final Result Performing Organization Address [facility] Co de Phone Number [facility] [address] [place] [phone] * (ABNORMAL) Comprehensive Metabolic Panel (06/23/2025 3:57 PM EDT) Sodium 138 135 - 145 mmol/L [facility] Potassium 4.7 3.3 - 5.1 mmol/L [facility] Chloride 107 96 - 108 mmol/L [facility] Carbon Dioxide 25 22 - 29 mmol/L [facility] Anion Gap 11(L) 12 - 20 [facility] Urea Nitrogen (BUN) 27(H) 9 - 16 mg/dL [facility] Creatinine, Serum 1.03 0.5 - 1.4 mg/dL [facility] Creatinine Clr Calc Pharmacy 34.4 [facility] Comment:Provided height and weight: 157.48 cm,52.163 kg.eGFR (calculated from the MDRD study equation) and eCrCl(calculated from the Cockcroft-Gault equation) are based ondifferent parameters and may not yield comparable results.If eCrCl result is absurd, please check patient'sheight/weight. Estimated Glomerular Filt Rate 52 [facility] Comment:Chronic Kidney Disea se: Estimated GFR < 60 mL/min/1.38p9Stweug Kidney Disease: Estimated GFR < 15 mL/min/1.73m2 Glucose 119(H) 60 - 115 mg/dL [facility] Calcium 9.3 8.4 - 10.2 mg/dL [facility] Bilirubin, Total 0.4 0.0 - 1.0 mg/dL [facility] Aspartate Amino Transferase 29 5 - 31 U/L [facility] Alanine Aminotransferase 23 0 - 31 U/L [facility] Total Protein 6.8 6.5 - 8.0 g/dL [facility] Albumin Level 4.1 3.5 - 5.0 g/dL [facility] Alkaline Phosphatase 151(H) 39 - 117 U/L [facility] 06/23/2025 3:57 PM EDT 06/23/2025 4:12 PM EDT Generic External Data Provider LAB BLOOD ORDERAB LES Final Result [facility] [address] [place] [phone] * POCT glucose manually resulted (06/15/2025 10:35 AM EDT) Pathologist [facility] Glucose Blood, POC 105 60 - 200 mg/dL QC Media Lot # [id number] Lot# Expiration Date [id number] Blood Capillary blood specimen / Unknown 06/15/2025 10:35 AM EDT Tiffany Kent MD POINT OF CARE TEST ENTER/E DIT ORDERABLES Final Result * (ABNORMAL) POCT glycosylated hemoglobin (Hgb A1c) (06/15/2025 10:34 AM EDT) [facility] Hemoglobin A1C 6.0(A) 4.0 - 5.7 % QC Media Lot # [id number] Lot# Expiration Date ,888,[id number] Blood Capillary blood specimen / Unknown 06/15/2025 10:34 AM EDT Tiffany Kent MD POINT OF CARE TEST ENTER/E DIT ORDERABLES Final Result * Albumin, Random Urine W/Creatinine (04/17/2024 8:35 AM EDT) Creatinine, Urine 111.68 mg/dL [facility] Microalbumin Urine 9.0 mg/L [facility] Microalbum Creatinine Ratio Ur 8.0 <30 ug/mg cr [facility] Comment:Albumin/Creatinine R atio Reference Ranges: Normal: < 30 ug/mg creatinine Microalbuminuria: 30 - 300 ug/mg creatinineClinical Albuminuria: > 300 ug/mg creatinine Urine 04/17/2024 8:35 AM EDT 04/17/2024 11:52 AM EDT Tiffany Kent MD LAB URINE ORDERABLES Final Result Performing Organization Address City/State/[facility] Co de Phone Number [facility] [address] [place] [phone] * Lipid Panel, Standard (04/17/2024 8:35 AM EDT) Triglycerides 107 <150 mg/dL [facility] Comment:Desirable Triglyceri de: less than 150 mg/dLBorderline High Triglyceride 150-199 mg/dLHigh Triglyceride: 200-499 mg/dLVery High Triglyceride: greater than or equal to 5OO mg/dL Cholesterol 115 <200 mg/dL [facility] Comment:Desirable Cholestero l: less than 200 mg/dLBorderline High Cholesterol: 200-239 mg/dLHigh Cholesterol: greater than 239 mg/dL LDL Cholesterol Calculated 40 <100 mg/dL [facility] Comment:Desirable LDL: less than 100 mg/dLNear Optimal/Above Optimal LDL: 110- 129 mg/dLBorderline High LDL: 130-159 mg/dLHigh LDL: 160-189 mg/dLVery High LDL: greater than or equal to 190 mg/dL HDL Cholesterol 54 >40 mg/dL [facility] Comment:Desirable HDL: great er than 40 mg/dL Note: This HDL assay may give artificially low results in patients with liver disease. Blood Venous blood specimen / Unknown 04/17/2024 8:35 AM EDT 04/17/2024 11:37 AM EDT us Tiffany Kent MD LAB BLOOD ORDERABLES Final Result [facility] [address] [place] [address] [phone] * Diabetes Eye Exam (02/18/2023) [facility] Signature Eye Exam Normal Normal Comment:Dr. Palencia Historical [...] Patient has chronic kidney disease 08/01/2025 Insurance [facility] FDC OPTIONS (O D-SNP) [place] [id number] Advance Directives Documents on File Type Date Recorded Patient Sound Effects Supervisor Expl anation Advance Directives and Living Will 07/20/2024 1:20 PM Health Care Proxy Care Teams Image Assembler Relationship Specialty Start Date End Date Yoli, MD Tiffany [address] [place] [id number] PCP - General Family Medicine 09/27/13 Cy Perdue MD [address] [place] [id number] Cardiology 12/12/24 Dr. Phelps Psychiatry 02/21/25
--- OUTSIDE RECORDS SUMMARY | 2025-08-05 17:18 | XMS_ITS | Encounter Summary ---
Author Organization [employer] Address [address] [facility] [address] [place] [address] Care Team Providers Care Turnaround Planner Name Role Phone Tiffany Kent MD Primary Care Provider [phone] Cy Perdue MD Unavailable [phone] Reason for Visit * Reason Comments Med Refill Encounter Details Date Type Department Care Team ([facility] Contact Info) Description 09/10/2023 Refill [facility] [address] [place] [address] Tiffany Kent MD [address] [place], [place] [id number] Social History Tobacco Use Types Packs/Day Years [...] on filedocumented in this encounter Care Teams Turnaround Planner Relationship Specialty Start Date End Date Tiffany Kent MD [address] [place] [address] PCP - General Family Medicine 09/27/13 Cy Perdue MD [address] [place] [id number] Cardiology 12/12/24 Dr. Phelps Psychiatry 02/21/25 documented as of this encounter
--- NOTE | 2025-08-05 17:45 | ECG_ITS ---
Test Reason : COUGH Blood Pressure : */* mmHG Vent. Rate : 75 BPM Atrial Rate : 75 BPM P-R Int : 124 ms QRS Dur : 70 ms QT Int : 384 ms P-R-T Axes : 37 -9 29 degrees QTcB Int : 428 ms Sinus rhythm with Premature supraventricular complexes Otherwise normal ECG When compared with ECG of 23-Jun-2025 15:50, Premature supraventricular complexes are now Present Referred By: Generic ED Physician Electronically Signed By: RAGHU MULLINS
[2025-08-05 17:51] LABS: MANUAL DIFF FLAG NO
[2025-08-05 17:52] LABS: Hematocrit 41.5 % (37.0-47.0); Hemoglobin 13.5 g/dl (12.0-16.0); Imm Gran Abs Auto 0.11 X10*3/uL (0.00-0.03); Imm Gran Pct Auto 1.2 % (0.0-0.4); Lymphocytes Absolute Auto 0.9 X10*3/uL (1.2-4.9); Mean Corpuscular HGB Conc 32.5 g/dl (31.0-35.0); Mean Corpuscular Hemoglobin 28.9 pg (27.0-33.0); Mean Corpuscular Volume 88.9 fL (80.0-98.0); NRBC Abs Auto 0.000 X10*3/uL (0.0-0.012); NRBC Pct Auto 0.0 /100WBC (0.0-0.2); Platelet Count 254 X10*3/uL (160-400); Red Blood Count 4.67 X10*6/uL (4.20-5.50); White Blood Count 9.3 X10*3/uL (4.8-10.8)
--- NOTE | 2025-08-05 17:52 | PC.NURSE ---
pt comes in from home reporting feeling unwell for several days and states I think I have pneumonia . She states she was recently seen at [facility] and prescribed albuterol and doxycycline and they did a chest XR but the medications are not working. she states she had a headache, trouble breathing and pain in her back on her left side. she states she is short of breath. IV placed right AC. labs drawn, and EKG complete. NSR on tele
[2025-08-05 18:08] LABS: Alanine Aminotransferase 24 U/L (0-31); Albumin Level 4.3 g/dL (3.5-5.0); Alkaline Phosphatase 149 U/L (39-117); Anion Gap 14 (12-20); Aspartate Amino Transferase 26 U/L (5-31); Blood Urea Nitrogen 26 mg/dL (9-16); Calcium 9.7 mg/dL (8.4-10.2); Carbon Dioxide 19 mmol/L (22-29); Chloride 109 mmol/L (96-108); Creatinine Clr Calc Pharmacy 39.8; Estimated Glomerular Filt Rate > 60; Potassium 4.4 mmol/L (3.3-5.1); Sodium 138 mmol/L (135-145); Total Protein 7.5 g/dL (6.5-8.0)
[2025-08-05 18:18] LABS: Troponin-I High Sensitivity < 2.7 ng/L (<3.5-17.0)
[2025-08-05 18:28] LABS: Resp Syncy Virus RNA Qual PCR NEGATIVE (Negative); SARS COV2 PCR INHOUSE NEGATIVE (Negative)
[2025-08-05 19:19] VITALS: BP 135/79; PULSE 72; RESP 19; TEMP 36.8; O2SAT 95
--- NOTE | 2025-08-05 20:20 | ED.GENADULT ---
HPI - General Adult General Chief complaint: Headache Stated complaint: Headache and malaise Time Seen by Provider: 08/05/25 19:49 Source: patient Mode of arrival: ambulatory Limitations: no limitations History of Present Illness ED Provider: Dr. Heath HPI narrative: This is a 80-year-old female history of hypertension presented hospital today for evaluation of headache for 3 days, chest pain back pain and body aches. Patient does endorse some fatigue. However patient states she has been having to episode of diarrhea today along with nausea. She does complain of diffuse abdominal tenderness. Denies any dysuria. Related Data Home Medications ?Medication ?Instructions ?Recorded ?Confirmed benazepril 10 mg tablet 1 tab PO QAM 11/20/20 08/27/22 montelukast 10 mg tablet 1 tab PO BEDTIME 11/20/20 08/27/22 sertraline 100 mg tablet 200 mg PO DAILY 11/20/20 08/27/22 calcium 600 mg (as 1 tab PO BID 08/27/22 08/27/22 carbonate)-vitamin D3 5 mcg (200 unit) tablet fluticasone 500 mcg-salmeterol 50 1 puff inhalation BID 08/27/22 08/27/22 mcg/dose blistr powdr for inhalation fluticasone propionate 50 1 spray intranasal DAILY PRN 08/27/22 08/27/22 mcg/actuation nasal Allergy Symptoms spray,suspension isosorbide mononitrate 60 mg 1 tab PO DAILY 08/27/22 08/27/22 tablet,extended release 24 hr multivitamin-ferrous 1 tab PO DAILY 08/27/22 08/27/22 fumarate-folic acid 18 mg-400 mcg tablet (Certavite-Antioxidant) omeprazole 20 mg capsule,delayed 1 cap PO DAILY 08/27/22 08/27/22 release trazodone 100 mg tablet 100 mg PO BEDTIME PRN Insomnia 08/27/22 08/27/22 trazodone 100 mg tablet 200 mg PO BEDTIME 08/27/22 08/27/22 umeclidinium 62.5 mcg/actuation 1 puff inhalation DAILY 08/27/22 08/27/22 blister powder for inhalation (Incruse Ellipta) Previous Rx's ?Medication ?Instructions ?Recorded atorvastatin 80 mg tablet 80 mg PO BEDTIME #30 tabs 05/12/21 acetaminophen 500 mg tablet 500 mg PO Q6H PRN fever or pain 04/22/22 (Tylenol Extra Strength) #14 tabs cyclobenzaprine 5 mg tablet 5 mg PO Q8H PRN pain (scale score 04/22/22 7-10) 5 days #14 tabs metoclopramide HCl 5 mg tablet 5 mg PO Q6H PRN nausea and 08/06/22 (Reglan) vomiting #10 tabs aspirin 81 mg chewable tablet 81 mg PO DAILY #1 tab 08/28/22 heparin (porcine) 25,000 unit/250 25,000 unit (250 mL) continuous IV 08/28/22 mL in 0.45 % sodium chloride IV infusion .Q0M #6,000 mL soln heparin (porcine) 5,000 unit/mL 2,100 unit (0.42 mL) IVPUSH 08/28/22 injection solution PROTOCOL BOLUS PRN 40 Unit/Kg - Heparin Protocol #1 mL heparin (porcine) 5,000 unit/mL 4,100 unit (0.82 mL) IVPUSH 08/28/22 injection solution PROTOCOL BOLUS PRN 80 Unit/Kg - Heparin Protocol #1 mL metoprolol tartrate 25 mg tablet 12.5 mg (1/2 x 25 mg) PO Q6H #1 tab 08/28/22 morphine 4 mg/mL intravenous 2 mg IVPUSH Q4H PRN Pain, Severe 08/28/22 syringe (Pain Scale 7-10) #10 mL ondansetron HCl (PF) 4 mg/2 mL 4 mg (2 mL) IVPUSH Q8H PRN Nausea 08/28/22 injection solution And Vomiting #10 mL ondansetron 4 mg disintegrating 4 mg PO Q8H PRN nausea and 11/27/22 tablet vomiting #10 tabs acetaminophen 500 mg tablet 500 mg PO Q6H PRN fever or pain 12/30/22 (Tylenol Extra Strength) #14 tabs cyclobenzaprine 5 mg tablet 5 mg PO Q8H PRN pain (scale score 12/30/22 7-10) 5 days #14 tabs lidocaine 5 % topical patch 1 patch topical DAILY PRN pain #30 12/30/22 (Lidoderm) ea naproxen 500 mg tablet 500 mg PO BID PRN pain 7 days #20 12/30/22 tabs benzonatate 100 mg capsule 100 mg PO TID PRN cough 5 days #15 02/10/23 caps doxycycline hyclate 100 mg tablet 100 mg PO Q12H 7 days #14 tabs 02/10/23 acetaminophen 500 mg tablet 500 mg PO Q6H PRN fever or pain 03/22/23 (Tylenol Extra Strength) #14 tabs cyclobenzaprine 5 mg tablet 5 mg PO Q8H PRN pain (scale score 03/22/23 7-10) 5 days #14 tabs lidocaine 5 % topical patch 1 patch topical DAILY PRN pain #30 03/22/23 (Lidoderm) ea cefuroxime axetil 250 mg tablet 250 mg PO BID 7 days #14 tabs 03/24/23 tramadol 50 mg tablet 50 mg PO BID PRN pain #6 tabs 05/12/23 acetaminophen 325 mg capsule 325 mg PO Q4H PRN pain #30 caps 05/24/24 (Tylenol) lidocaine 5 % topical patch 1 patch topical DAILY PRN pain #15 05/24/24 ea methocarbamol 750 mg tablet 750 mg PO BEDTIME PRN pain #7 tabs 09/01/24 tramadol 50 mg tablet 50 mg PO BID PRN pain #7 tabs 05/02/25 meclizine 25 mg tablet 25 mg PO BID PRN dizziness #10 tabs 06/23/25 sucralfate 100 mg/mL oral 10 ml PO QID PRN nausea #200 mL 06/23/25 suspension (Carafate) lidocaine 5 % topical patch 1 patch topical DAILY #15 ea 08/05/25 loperamide 2 mg capsule (Imodium 2 mg PO Q6H PRN loose stool #20 08/05/25 A-D) caps ondansetron 4 mg disintegrating 4 mg PO Q8H PRN nausea and 08/05/25 tablet vomiting #14 tabs Allergies Allergy/AdvReac Type Severity Reaction Status Date / Time No Known Allergies Allergy Verified 08/05/25 16:42 Review of Systems Review of Systems: Pertinent review of systems as mentioned in HPI. All other system otherwise negative. [facility] Past Medical History [facility] Narrative: Medical history as mentioned in HPI Medical History Multinodular goiter (nontoxic) Pulmonary embolism Asthma Pancreatitis Diabetes Hypertension High cholesterol GERD (gastroesophageal reflux disease) Aortic insufficiency Depression NSTEMI (non-ST elevated myocardial infarction) Surgical History No history of previous surgery Family History Family History Father Hypertension Heart disease Mother Hypertension Heart disease Social History Social History Household Members: Family and Other Household Members Other:: daughter is steeping press operator Housing: Apartment Do you presently have visiting nurse or other home services: No Alcohol intake: never Patient Tobacco Use Status: Never used Tobacco Second Hand Smoke Exposure: No service: No Current occupational status: unemployed and disabled Physical Exam ED Exam Exam: General: Pleasant, no distress, interacting appropriately Head: Normacephalic, atraumatic ENT: oral mucosa moist, neck supple, no tracheal deviation Cardiovascular: regular rate, regular rhythm, no murmurs, rubbing, gallops Respiratory: CTAB, no wheeze, rales, rhonchi Gastrointestinal: Soft, non distended, Diffuse abdominal tenderness on palpat Neurological: Awake and alert, no facial droop noted Skin: Warm and dry Psychiatric: Appropriate mood and thoughts Vital Signs: Vital Signs - 24 hr 08/05/25 16:36 08/05/25 16:40 08/05/25 19:19 Temperature 98.7 F 98.4 F 98.3 F Pulse Rate 83 82 72 Respiratory Rate 16 19 Blood Pressure 148/80 H 148/80 H 135/79 Pulse Oximetry 94 95 95 Oxygen Delivery Method Room Air Room Air Room Air 08/06/25 00:14 Temperature 98.3 F Pulse Rate 72 Respiratory Rate 19 Blood Pressure 135/79 Pulse Oximetry 95 Oxygen Delivery Method Room Air BMI result Body Mass Index 22.3 Medications Administered Discontinued Medications Generic Name Dose Route Start Last Admin Trade Name Freq PRN Reason Stop Dose Admin Acetaminophen 975 mg 08/05/25 20:53 08/05/25 21:03 Acetaminophen 325 Mg Tablet PO 08/05/25 20:54 975 mg ONCE ONE Administration Lactated Ringer's 1,000 mls @ 999 mls/hr 08/05/25 21:00 08/05/25 22:47 Lr IV 08/05/25 22:00 Infused .Q1H1M ANGEL Infusion Iohexol 100 ml 08/05/25 21:08 08/05/25 21:12 Iohexol 350 Mg/Ml 100 Ml Infus..Btl IV 08/05/25 21:09 85 ml ONCE ONE Administration Ketorolac Tromethamine 15 mg 08/05/25 20:53 08/05/25 21:02 Ketorolac Tromethamine 15 Mg/Ml Vial IVPUSH 08/05/25 20:54 15 mg ONCE ONE Administration Ondansetron HCl 4 mg 08/05/25 20:53 08/05/25 21:02 Ondansetron Hcl 4 Mg/2 Ml Vial IVPUSH 08/05/25 20:54 4 mg ONCE ONE Administration Medical Decision Making Medical Decision Making [facility] Narrative: This is a 80-year-old female presented hospital today for evaluation of diffuse abdominal tenderness headache body aches. Suspect patient likely has a viral syndrome from her presentation. However due to her abdominal tenderness in the risk factor we will obtain a CT abdomen and pelvis. I did review patient's lab work. No sign of leukocytosis. The patient does have a left shift and neutrophils. Patient's chemistry did show signs of metabolic acidosis bicarb at 19, elevated BUN to creatinine ratio. Likely secondary to dehydrate from diarrhea. Lactic acid isn't elevated. I did obtain a VBG for the patient. VBG did not show any signs of significant metabolic acidosis pH is 7.43. Patient's troponin was negative. EKG did not show any signs of STEMI. Chest x-ray is unremarkable Patient's CT abdomen and pelvis did not show any signs of significant abnormality at this time. Suspect patient likely has gastroenteritis patient will be discharged home . Differential Diagnosis Differential Diagnoses: The differential diagnosis associated with the presentation includes colitis, gastroenteritis, viral syndrome, flu Lab Data [facility] Lab Attestation statement: I reviewed the patient's lab results. 08/05/25 17:47 08/05/25 17:47 Labs: Lab Results 08/05/25 08/05/25 08/05/25 Range/Units 17:47 21:01 21:05 WBC 9.3 (4.8-10.8) X10*3/uL RBC 4.67 (4.20-5.50) X10*6/uL Hgb 13.5 (12.0-16.0) g/dl Hct 41.5 (37.0-47.0) % MCV 88.9 (80.0-98.0) fL MCH 28.9 (27.0-33.0) pg MCHC 32.5 (31.0-35.0) g/dl RDW 13.1 (11.0-16.0) % Plt Count 254 D (160-400) X10*3/uL MPV 10.8 (9.4-12.3) fL Immature Gran % (Auto) 1.2 H (0.0-0.4) % Neut % (Auto) 86.9 H (45-73) % Lymph % (Auto) 9.5 L (20-40) % [place] % (Auto) 2.3 (2-11) % Eos % (Auto) 0.0 (0-4) % Baso % (Auto) 0.1 (0-2) % Lymph # (Auto) 0.9 L (1.2-4.9) X10*3/uL [place] # (Auto) 0.2 (0.1-1.2) X10*3/uL Eos # (Auto) 0.0 (0.0-0.4) X10*3/uL Baso # (Auto) 0.0 (0.0-0.2) X10*3/uL Abs Immat Gran (auto) 0.11 H (0.00-0.03) X10*3/uL Absolute Neuts (auto) 8.1 (2.0-8.3) x10*3/uL Absolute Nucleated RBC 0.000 (0.0-0.012) X10*3/uL Nucleated RBC % (auto) 0.0 (0.0-0.2) /100WBC VBG pH 7.43 (7.32-7.43) VBG pCO2 35 mmHg VBG pO2 69 mmHg VBG HCO3 23 (22-26) mmol/L VBG O2 Saturation 93.0 % VBG Base Excess -0.2 mmol/L Sodium 138 (135-145) mmol/L Potassium 4.4 (3.3-5.1) mmol/L Chloride 109 H (96-108) mmol/L Carbon Dioxide 19 L (22-29) mmol/L Anion Gap 14 (12-20) BUN 26 H (9-16) mg/dL Creatinine 0.85 (0.5-1.4) mg/dL Estim Creat Clear Calc 39.8 Estimated GFR > 60 Random Glucose 199 H (60-115) mg/dL Lactic Acid 1.3 (0.5-2.0) mmol/L Calcium 9.7 (8.4-10.2) mg/dL Total Bilirubin 0.4 (0.0-1.0) mg/dL AST 26 (5-31) U/L ALT 24 (0-31) U/L Alkaline Phosphatase 149 H (39-117) U/L Troponin I High Sens < 2.7 (<3.5-17.0) ng/L Total Protein 7.5 (6.5-8.0) g/dL Albumin 4.3 (3.5-5.0) g/dL Influenza Type A (PCR) NEGATIVE (Negative) Influenza Type B (PCR) NEGATIVE (Negative) RSV RNA Qual (PCR) NEGATIVE (Negative) SARS-CoV-2 RNA (RT-PCR) NEGATIVE (Negative) Independent Interpretation I performed an independent interpretation of an: EKG and CT Scan Radiology Impression Discussion of test interpretation with radiology: I have reviewed the radiologist's reading. Discharge Plan Discharge Clinical Impression: Acute viral syndrome Patient Disposition: Home, Self-Care Instructions: Viral Syndrome (ED) Additional Instructions: Take 1000 mg tylenol every 8 hours for the next days. Your cardiac test is normal today. CT imaging did not show any significant abnormalities that may be causing your pain. I suspect you may have signs of viral gastroenteritis. Prescriptions: New loperamide [Imodium A-D] 2 mg capsule 2 mg PO Q6H PRN (Reason: loose stool) Qty: 20 0RF ondansetron 4 mg tablet,disintegrating 4 mg PO Q8H PRN (Reason: nausea and vomiting) Qty: 14 0RF lidocaine 5 % adhesive patch,medicated 1 patch topical DAILY Qty: 15 0RF Rx Instructions: leave on most painful area for up to 12 hrs No Action sertraline 100 mg tablet 200 mg PO DAILY montelukast 10 mg tablet 1 tab PO BEDTIME benazepril 10 mg tablet 1 tab PO QAM atorvastatin 80 mg Tablet 80 mg PO BEDTIME Qty: 30 0RF acetaminophen [Tylenol Extra Strength] 500 mg tablet 500 mg PO Q6H PRN (Reason: fever or pain) Qty: 14 0RF cyclobenzaprine 5 mg tablet 5 mg PO Q8H PRN (Reason: pain (scale score 7-10)) 5 Days Qty: 14 0RF metoclopramide HCl [Reglan] 5 mg tablet 5 mg PO Q6H PRN (Reason: nausea and vomiting) Qty: 10 0RF ondansetron 4 mg tablet,disintegrating 4 mg PO Q8H PRN (Reason: nausea and vomiting) Qty: 10 0RF calcium carbonate-vitamin D3 600 mg-5 mcg (200 unit) tablet 1 tab PO BID fluticasone propion-salmeterol 500-50 mcg/dose blister with device 1 puff inhalation BID Certavite-Antioxidant 18-400 mg-mcg tablet 1 tab PO DAILY Incruse Ellipta 62.5 mcg/actuation blister with device 1 puff inhalation DAILY isosorbide mononitrate 60 mg tablet extended release 24 hr 1 tab PO DAILY trazodone 100 mg tablet 200 mg PO BEDTIME omeprazole 20 mg capsule,delayed release(DR/EC) 1 cap PO DAILY trazodone 100 mg tablet 100 mg PO BEDTIME PRN (Reason: Insomnia) Rx Instructions: If addition to 200 mg if cannot sleep fluticasone propionate 50 mcg/actuation [place],Suspension 1 spray INTRANASAL DAILY PRN (Reason: Allergy Symptoms) Rx Instructions: administer into each nostril heparin(porcine) in 0.45% NaCl 25,000 unit/250 mL Parenteral Solution 25,000 unit continuous IV infusion .Q0M Qty: 6000 0RF aspirin 81 mg Tablet,Chewable 81 mg PO DAILY Qty: 1 0RF heparin (porcine) 5,000 unit/mL Solution 2,100 unit IVPUSH PROTOCOL BOLUS PRN (Reason: 40 Unit/Kg - Heparin Protocol) Qty: 1 0RF heparin (porcine) 5,000 unit/mL Solution 4,100 unit IVPUSH PROTOCOL BOLUS PRN (Reason: 80 Unit/Kg - Heparin Protocol) Qty: 1 0RF morphine 4 mg/mL Syringe 2 mg IVPUSH Q4H PRN (Reason: Pain, Severe (Pain Scale 7-10)) Qty: 10 0RF Protocol: Hold for RR < HOLD and contact provider for RR < (bpm): 12 Rx Instructions: Partial Fill upon patient request. ondansetron HCl (PF) 4 mg/2 mL Solution 4 mg IVPUSH Q8H PRN (Reason: Nausea And Vomiting) Qty: 10 0RF metoprolol tartrate 25 mg tablet 12.5 mg PO Q6H Qty: 1 0RF acetaminophen [Tylenol Extra Strength] 500 mg tablet 500 mg PO Q6H PRN (Reason: fever or pain) Qty: 14 0RF lidocaine [Lidoderm] 5 % adhesive patch,medicated 1 patch topical DAILY MDD remove after 12 hours PRN (Reason: pain) Qty: 30 0RF Rx Instructions: leave on most painful area for up to 12 hrs cyclobenzaprine 5 mg tablet 5 mg PO Q8H PRN (Reason: pain (scale score 7-10)) 5 Days Qty: 14 0RF cefuroxime axetil 250 mg tablet 250 mg PO BID 7 Days Qty: 14 0RF lidocaine 5 % adhesive patch,medicated 1 patch topical DAILY PRN (Reason: pain) Qty: 15 0RF Rx Instructions: leave on most painful area for up to 12 hrs acetaminophen [Tylenol] 325 mg capsule 325 mg PO Q4H PRN (Reason: pain) Qty: 30 0RF methocarbamol 750 mg tablet 750 mg PO BEDTIME PRN (Reason: pain) Qty: 7 0RF sucralfate [Carafate] 100 mg/mL suspension 10 ml PO QID PRN (Reason: nausea) Qty: 200 0RF Rx Instructions: swish in mouth and swallow; use after food/drink meclizine 25 mg tablet 25 mg PO BID PRN (Reason: dizziness) Qty: 10 0RF acetaminophen [Tylenol Extra Strength] 500 mg tablet 500 mg PO Q6H PRN (Reason: fever or pain) Qty: 14 0RF lidocaine [Lidoderm] 5 % adhesive patch,medicated 1 patch topical DAILY MDD remove after 12 hours PRN (Reason: pain) Qty: 30 0RF Rx Instructions: leave on most painful area for up to 12 hrs naproxen 500 mg tablet 500 mg PO BID PRN (Reason: pain) 7 Days Qty: 20 0RF cyclobenzaprine 5 mg tablet 5 mg PO Q8H PRN (Reason: pain (scale score 7-10)) 5 Days Qty: 14 0RF doxycycline hyclate 100 mg tablet 100 mg PO Q12H 7 Days Qty: 14 0RF benzonatate 100 mg capsule 100 mg PO TID PRN (Reason: cough) 5 Days Qty: 15 0RF tramadol 50 mg tablet 50 mg PO BID PRN (Reason: pain) Qty: 6 0RF tramadol 50 mg tablet 50 mg PO BID PRN (Reason: pain) Qty: 7 0RF Interventions: ED Discharge Assessment Last Done: 08/06/25 00:14 Discharge Date/Time: 08/05/25 23:55 Print Language: Bulgarian
[2025-08-05] MEDS: Lactated Ringers 1,000 ML 999 ML IV (21:02)
--- NOTE | 2025-08-05 21:07 | PC.NURSE ---
pt out to CT at this time
[2025-08-05 21:10] LABS: VBG HCO3 23 mmol/L (22-26); VBG O2 % Saturation 93.0 %
[2025-08-05] MEDS: iohexoL 350 MG/ML 100 ML INFUS..BTL IV (21:12)
[2025-08-05 21:13] LABS: Venous Blood Gas Refer to POC result
[2025-08-06 00:14] VITALS: BP 135/79; PULSE 72; RESP 19; TEMP 36.8; O2SAT 95
== END 2025-08-05 23:55 | disposition home or self-care (01) ==
PROVIDERS: Emergency Provider Student in an Organized Health Care Education/Training Program; PCP Family Medicine
DX: B34.9 Viral infection, unspecified (principal); R10.819 Abdominal tenderness, unspecified site; I10 Essential (primary) hypertension; E11.9 Type 2 diabetes mellitus without complications; Z86.711 Personal history of pulmonary embolism; I25.2 Old myocardial infarction; Z03.818 Encounter for observation for suspected exposure to other biological agents ruled out
CPT/HCPCS: 36415; 71046; 74177; 80053; 82803; 83605; 84484; 85025; 87637; 93005; 96361; 96374; 96375; 99285; J1885; J2405; J7120; Q9967

== ENCOUNTER → 2025-08-05 17:45 | Outpatient (BNV) | payer OTHER, SELFPAY | PROVIDERS: PCP Family Medicine; Visit Provider Radiology Diagnostic Radiology | DX: R10.9 Unspecified abdominal pain (principal); R05.9 Cough, unspecified | CPT/HCPCS: 71046; 74177 ==

== ENCOUNTER → 2025-08-05 17:45 | Outpatient (BNV) | payer OTHER, SELFPAY | PROVIDERS: Emergency Provider Student in an Organized Health Care Education/Training Program; PCP Family Medicine; Visit Provider Internal Medicine | DX: I49.3 Ventricular premature depolarization (principal) | CPT/HCPCS: 93010 ==

== ENCOUNTER 2025-08-09 10:57 | Outpatient (REF) | payer OTHER, SELFPAY ==
--- NOTE | ~2025-08-09 | US_ITS ---
EXAMINATION: US THYROID CLINICAL INFORMATION: Surveillance, thyroid nodules. COMPARISON: August 10, 2024. TECHNIQUE: Linear transducer grayscale and color Doppler examination with attention to the region of the thyroid. FINDINGS: SIZE: Measurements of the thyroid lobes and nodules are given in sagittal, anteroposterior and transverse dimensions respectively. Right Thyroid Lobe: 3.2 x 1.4. x 1.1 cm, volume 2.4 mL. Previous: 4.1 x 1.3 x 1.1 cm left Volume: 2.8 cc. Parenchyma: The gland echotexture is heterogeneous. Thyroid vascularity is normal. Left Thyroid Lobe: 3.5 x 1.2 x 1.3 cm, volume 2.8 mL Previous: 3.9 x 1.4 x 1.2 cm, volume: 3.5 cc.. Parenchyma: The gland echotexture is heterogeneous. Thyroid vascularity is increased. Isthmus: 0.2 cm in maximum AP dimension. Previous: 0.2 cm Estimated total number of nodules greater than or equal to 1 cm: 1. Mortuary Operations Manager nodules are described as follows: 1. Location: Lower pole, left lobe. Size: 1.7 x 1.6 x 1.1 cm, volume 1.6 mL. Previous: 1.8 x 1.5 x 1.5 cm, volume: 2.16 cc. Nodule characteristics: Composition: Solid/almost completely solid (2). Echogenicity: Isoechoic (1). Shape: Taller than wide (3). Margins: Smooth (0). Echogenic Foci: None (0). ACR TI-RADS total points: 6 ACR TI-RADS category: 4 2. Location: [Upper right lobe. Size: 0.3 x 0.14 x 0.2 cm, volume 0.004 mL. Nodule characteristics: Composition: Solid/almost completely solid (2). Echogenicity: Hypoechoic (2). Shape: Not taller than wide (0). Margins: Smooth (0). Echogenic Foci: None (0). ACR TI-RADS total points: 4 ACR TI-RADS category: 4 3. Location: Upper, right lobe. Size: 0.7 x 0.5 x 0.4 cm, volume 0.0 65 mL. Previous: 0.7 x 0.3 x 0.5 cm, volume: 0.07 cc. Nodule characteristics: Composition: Undetermined (2) Echogenicity: Undetermined (1) Shape: Taller than wide (3). Margins: Smooth (0). Echogenic Foci: None (0). ACR TI-RADS total points: 6 ACR TI-RADS category: 4 4. Location: Mid right lobe. Size: 0.7 x 0.5 x 0.4 cm, volume 0.076 mL. Previous: 0.7 x 0.3 x 0.6 cm, volume: 0.0 cm cyst. Nodule characteristics: Composition: Solid (2). Echogenicity: Isoechoic (1). Shape: Taller than wide (3). Margins: Smooth (0). Echogenic Foci: None (0). ACR TI-RADS total points: 6 ACR TI-RADS category: 4 5. Location: [Upper left lobe. Size: 0.4 x 0.3 x 0.5 cm, volume 0.032 mL. Nodule characteristics: Composition: Mixed cystic and solid (1). Echogenicity: Undetermined (1) Shape: Not taller than wide (0). Margins: Smooth (0). Echogenic Foci: None (0). ACR TI-RADS total points: 2 ACR TI-RADS category: 2 NODES: No lymphadenopathy is seen in the tissue surrounding the thyroid gland. US/US thyroid IMPRESSION: ACR TI-RADS Category 3 and 4 ACR TI-RADS RECOMMENDATION REFERENCE: Ultrasound-guided fine-needle aspiration, followup ultrasound, no further follow up. * TR1 (0 point) and TR2 (2 points): No FNA or follow up. * TR3 (3 points): FNA if more than or equal to 2.5 cm in maximum dimension, followup ultrasound in 1, 3 and 5 years if 1.5 to 2.4 cm in maximum dimension. * TR4 (4-6 points): FNA if more than or equal to 1.5 cm in maximum dimension, followup ultrasound in 1, 2, 3 and 5 years if 1 to 1.4 cm in maximum dimension. * TR5 (more than or equal to 7 points): FNA if more than or equal to 1 cm in maximum dimension, followup ultrasound every year for 5 years if 0.5 to 0.9 cm in maximum dimension. * TR3, TR4 or TR5 nodules that are below the size threshold for followup receive no follow up. Electronically signed by: Buster Baez MD 08/09/2025 02:18 PM CANDIS RP
--- OUTSIDE RECORDS SUMMARY | 2025-08-09 16:40 | XMS_ITS | Clinical Summary ---
Author Organization [employer] Address [address] [place] [address] [address] [place] [address] Care Team Providers Care Director Of Marketing Operations Name Role Phone Tiffany Kent MD Primary Care Provider [phone] Cy Perdue MD Unavailable [phone] Allergies Active Allergy Reactions Criticality Noted Date Comments Oxycodone 09/23/2022 Medications lidocaine (Xylocaine) 5 % ointmentIndicati ons:Right-sided low back pain with right-sided sciatica, unspecified chronicity apply by topical route 1 - 3 times every day to affected area(s) as needed 50 g 2 06/09/20 23 Active Acetaminophen Extra Strength 500 MG tabletIndication s:Right-sided low back pain with right-sided sciatica, unspecified chronicity TAKE 1 OR 2 TABLETS BY MOUTH EVERY 8 HOURS NEEDED 30 tablet 1 06/24/20 23 Active loratadine (Claritin) 10 MG tabletIndication s:Allergic rhinitis due to other allergic trigger, unspecified seasonality TAKE 1 TABLET BY MOUTH EVERY DAY NEEDED 90 tablet 1 06/22/20 24 Active atorvastatin (Lipitor) 80 MG tabletIndication s:Dyslipidemia TAKE 1 TABLET BY MOUTH AT BEDTIME 90 tablet 3 08/22/20 24 Active omeprazole (PriLOSEC) [address] capsuleIndicatio [...] 90 tablet 3 09/21/19 25 Active Multiple Vitamins-Mineral s (CertaVite/Antio xidants) tabletIndication s:Vitamin deficiency TAKE 1 TABLET BY MOUTH EVERY MORNING WITH FOOD 90 tablet 3 11/21/19 25 Active isosorbide mononitrate ER (Imdur) 60 MG [...] mouth 2 times daily. 30 each 11 02/22/20 25 Active Umeclidinium [place] (Incruse Ellipta) 62.5 MCG/ACT aerosol powderIndication s:Pulmonary emphysema, unspecified emphysema type Inhale 1 Act (62.5 mcg) Once per day. 30 each 08/06/2025 10:51 AM EST 02/22/20 25 Active traZODone (Desyrel) 100 MG tabletIndication s:Severe dementia with other behavioral disturbance, unspecified dementia type (CMS/HCC) ([facility]) take 2-3 tablets by oral route every day at bedtime 90 tablet 1 02/22/20 25 Active apixaban (Eliquis) 5 MG tabletIndication s:History of pulmonary embolism Take 5 mg by mouth 2 times daily. Active Calcium + Vitamin D3 600-5 MG-MCG tabletIndication s:Osteopenia, unspecified location TAKE 1 TABLET BY MOUTH TWICE DAILY IN THE MORNING AND IN THE EVENING 180 tablet 3 04/19/20 25 Active nitroglycerin (Nitrostat) 0.4 MG SL tabletIndication s:Acute non-ST elevation myocardial infarction (NSTEMI) ([facility]) Place 1 tablet (0.4 mg) under the tongue every 5 (five) minutes if needed for chest pain. 30 tablet 06/15/20 25 Active donepezil (Aricept) 5 MG tabletIndication s:Severe dementia with other behavioral disturbance, unspecified dementia type (CMS/HCC) ([facility]) TAKE 1 TABLET BY MOUTH AT BEDTIME 90 tablet 3 06/20/20 25 Active montelukast (Singulair) 10 MG tabletIndication s:Mild intermittent asthma without complication TAKE 1 TABLET BY MOUTH EVERY EVENING 90 tablet 1 06/20/20 25 Active albuterol (2.5 MG/3ML) 0.083% nebulizer solution Take 3 mL (2.5 mg) by nebulization every 6 (six) hours if needed for wheezing or shortness of breath. 75 mL 1 08/01/2025 4:19 PM EST 08/01/20 026 Active albuterol 108 (90 Base) MCG/ACT inhaler Inhale 2 puffs every 4 (four) hours if needed for wheezing or shortness of breath. 18 g 1 08/01/2025 4:19 PM EST 08/01/20 026 Active Spacer/Aero-Hold ing Chambers (OptiChamber Vandana) misc 1 each every 4 (four) hours if needed (asthma). 1 each 08/01/2025 4:19 PM EST 08/01/20 25 Active Nebulizer misc 1 kit Every 4-6 hours as needed (wheezing/ SOB). Active predniSONE (Deltasone) 20 MG tablet Take 2 tablets (40 mg) by mouth Once per day for 5 days. 10 tablet 08/01/2025 4:19 PM EST 08/01/20 025 doxycycline (Vibramycin) 100 MG capsule Take 1 capsule (100 mg) by mouth 2 times daily for 7 days. Take with at least 8 ounces (large glass) of water, do not lie down for 30 minutes after 14 capsule 08/01/2025 4:19 PM EST 08/01/20 025 Hospital, Clinic, or Other Facility Administered Medication Ordered Dose Route Frequency Start Date End Date Status albuterol (2.5 MG/3ML) 0.083% nebulizer solution 2.5 mgIndications:COPD exacerbation (CMS/HCC) ([facility]) 2.5 mg NEBULIZATION Once 08/01/2025 08/01/2025 Ended Active Problems Patient Care Coordination No te Formatting of this note migh t be different from the original. [facility] Chief Information Security Officer: Mikayla Brittrio Support Agency: [facility] Problem Noted Date Diagnosed Date Stage 3b chronic kidney disease ([facility]) 2024 Overview (07/24/2025): Lab Results Component Value Date CREATININE 1.03 06/23/2025 CREATININE 0.99 05/02/2025 CREATININE 0.86 06/21/2024 CREATININE 0.94 08/06/2022 CREATININE 1.02 04/14/2022 CREATININE 0.94 04/06/2022 EGFR 52 06/23/2025 EGFR 54 05/02/2025 EGFR >60 06/21/2024 MICROALBCREU 8.0 04/17/2024 -avoid nephrotoxic agents Depression, recurrent 07/19/2024 Severe dementia with other b ehavioral disturbance, unspecified dementia type ([facility]) 04/13/2024 Overview (02/21/2025): Per daughter, pt's short-term [...] [facility] on 05/02/2014. -Last Eye Exam at [facility] with Dr. Hutchison on 11/2022, will request most recent note. -has dentures -health care proxy 07/19/24 Assessment & Plan (06/15/2025 10:55 AM EDT): -Next annual evaluation due after 06/15/26 -MOLST was done with [facility] on 05/02/2014. -Last Eye Exam at [facility] with Dr. Hutchison on 11/2022, will request most recent note. -has dentures -health care proxy 07/19/24 Assessment & Plan (02/21/2025 9:29 AM EDT): -Next annual evaluation due after 07/19/25 -MOLST was done with [facility] on 05/02/2014. -Last Eye Exam at [facility] with Dr. Hutchison on 11/2022, will request most recent note. -has dentures -health care proxy 07/19/24 Assessment & Plan (07/19/2024 2:40 PM EDT): -Next annual evaluation due after 07/19/25 -MOLST was done with [facility] on 05/02/2014. -Last Eye Exam at [facility] with Dr. Hutchison on 11/2022, will request most recent note. -has dentures -health care proxy 07/19/24 Assessment & Plan (03/04/2023 9:17 AM EDT): Next PE due after March 04/2024 -MOLST was done with [facility] on 05/02/2014. -Last Eye Exam at [facility] with Dr. 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 -admitted to [facility] 11/10/24 for chest pain with normal ECG, cardiac biomarkers mildly elevated but flat. -Patient followed at [facility] with Dr. Suzan Perdue [...] metoprolol and nitropaste. -admitted to [facility] 11/10/24 for chest pain with normal ECG, cardiac biomarkers mildly elevated but flat. -Patient followed at [facility] with Dr. Suzan Perdue [...] 11/05/2016 benign -Biopsy on 06/26/[address] Hlal -repeat US 10/28/2021 recommending follow up 2-3 [...] exam: followed by Dr. Irving Palencia of [facility] -Diabetic foot exam: done 07/19/24 [...] exam: followed by Dr. Irving Palencia of [facility] -Diabetic foot exam: done 07/19/24 [...] exam: followed by Dr. Irving Palencia of [facility] -Diabetic foot exam: done 07/19/24 [...] Encounters Date Type Department Care Team Description 08/07/2025 Telephone [facility] [address] [place] [phone] Ang Ulloa MD NEBULIZER 08/06/[address] [address] Tiffany Kent MD Med Refill 08/05/2025 Orders Only [facility] External Provider, [facility] 08/01/2025 9:40 AM EST [facility] [address] [address] Ang Ulloa MD COPD exacerbation (CMS/[facility]) ([facility]) (Primary Dx); Cough in adult; Nasal congestion 08/01/2025 Results [facility] [address] [address] Ang Ulloa MD XR Chest 2 Views 08/01/2025 Travel 07/23/2025 11:15 AM EST Telemedicine [address] [address] Tiffany Kent MD Essential hypertension (Primary Dx) 07/23/2025 Travel 07/20/[address] [address] Tiffany Kent MD chartprep 06/23/2025 Orders Only GENERIC EXTERNAL DATA DEPARTMENT Provider, Generic External Data 06/19/[address] [address] Tiffany Kent MD Severe dementia with other behavioral disturbance, unspecified dementia type ([facility]); Mild intermittent asthma without complication 06/15/2025 10:30 AM EDT Office Visit [address] [address] Tiffany Kent MD Type 2 diabetes mellitus without complication, with long-term current use of insulin ([facility]) (Primary Dx); Essential hypertension; Hyperlipidemia, unspecified hyperlipidemia type; Pulmonary emphysema, unspecified emphysema type (CMS/HCC); Acute non-ST elevation myocardial infarction (NSTEMI) (CMS/[facility]); History of pulmonary embolism; Anemia, unspecified type; Thyroid nodule; Severe dementia with other behavioral disturbance, unspecified dementia type (CMS/HCC); Encounter for immunization; Other specified health status 06/15/[address] [place] [address] Tiffany Kent MD 06/15/2025 Travel 06/07/2025 Orders Only [facility] [place] [address] Tiffany Kent MD Acute non-ST elevation myocardial infarction (NSTEMI) ([facility]) (Primary Dx); Arteriosclerosis of coronary artery; Hyperlipidemia, unspecified hyperlipidemia type; Essential hypertension 06/06/2025 Telephone [facility] [address] [facility] [address] Tiffany Kent MD Referral 06/04/2025 Refill [facility] [address] [facility] [place] [phone] Tiffany Kent MD from Last 3 Months [...] blood pressure task No HernandezAmira bennettuymason MA Help patients manage their type 2 diabetes Care Plan Help patients manage their type 2 diabetes No Kosta Hernandez MA Patient has chronic kidney disease Care Plan Patient has chronic kidney disease No Kosta Hernandez MA Weekly blood pressure task Care Plan Weekly blood pressure task No HernandezAmira bennettuyomy MA Patient has chronic kidney disease Care [...] chronic kidney disease No Sharmila Sr RN Procedures Procedure Name Priority Date/Time Associated Diagnosis Comments US THYROID Routine 08/09/2025 11:46 AM EST Thyroid nodule CT ABDOMEN PELVIS W CONTRAST Routine 08/05/2025 10:19 PM EST VENOUS BLOOD GAS Routine 08/05/2025 9:05 PM EST LACTIC ACID Routine 08/05/2025 9:01 PM EST XR CHEST 2 VIEWS Routine 08/05/2025 6:50 PM EST HIGH SENSITIVITY TROPONIN I Routine 08/05/2025 5:47 PM EST COMPREHENSIVE METABOLIC PANEL Routine 08/05/2025 5:47 PM EST CBC WITH AUTO DIFFERENTIAL Routine 08/05/2025 5:47 PM EST SARS COV2/INFLUENZA A/B AND RSV RNA QL NAAT Routine 08/05/2025 5:47 PM EST XR CHEST 2 VIEWS Routine 08/01/2025 11:2 [...] with long-term current use of insulin (CMS/HCC) POCT GLYCOSYLATED HEMOGLOBIN (HGB A1C) Routine 06/15/2025 10:34 AM EDT Type 2 diabetes mellitus without complication, with long-term current use of insulin (CMS/HCC) ALBUMIN, RANDOM URINE W/CREATININE Routine 04/17/2024 8:35 AM EDT Type 2 diabetes mellitus without complication, without long-term current use of insulin (CMS/HCC) LIPID PANEL, STANDARD Routine 04/17/2024 8:35 AM EDT Type 2 diabetes mellitus without complication, without long-term current use of insulin (CMS/HCC) DIABETES EYE EXAM Routine 02/18/2023 from Last 3 Months or Most Recently Relevant to Health Maintenance Results * US Thyroid (08/09/2025 11:46 AM EST) Anatomical Region Laterality Modality Head, Neck Ultrasound 08/09/2025 11:4 6 AM EST Narrative 08/09/2025 2:21 PM EST [place] [address] Ultrasound Report Signed Patient: Edilma Méndez MR#: [id number] : 1945 Acct:[id number] Age/Sex: 80 / F ADM Date: 08/09/25 Loc: HO.US Attending Dr: Tiffany Kent MD Ordering Physician: Tiffany Kent MD Date of Service: 08/09/25 Procedure(s): US thyroid Accession Number(s): [id number] cc: Tiffany Kent MD Reason for Exam: [...] than or equal to 1 cm: 1. Prep Room Supervisor nodules are described as follows: 1. Location: [...] by: Buster Baez MD 08/09/2025 02:18 PM [facility] Dictated By: Buster Richards MD Signed By: <Electronically signed by Buster Farmer MD in OV> 08/09/25 1418 DD/ 1146 TD/TT: 08/09/25 1158 Stenciler: Procedure Note Donotuseinterpreter, Image - 08/09/2025 [place] [address] Ultrasound Report Signed Patient: Esther Méndez#: [id number] : 5Acct:[id number] Age/Sex: 80 / FADM Date: 08/09/25 Loc: HO.US Attending Dr: Tiffany Kent MD Ordering Physician: Tiffany Kent MD Date of Service: 08/09/25 Procedure(s): US thyroid Accession Number(s): [id number] cc: Tiffany Kent MD Reason for Exam: [...] than or equal to 1 cm: 1. Prep Room Supervisor nodules are described as follows: 1. Location: [...] by: Buster Baez MD 08/09/2025 02:18 PM [facility] Dictated By: Buster Richards MD Signed By: <Electronically signed by Buster Farmer MDin OV> 08/09/25 1418 DD/ 1146 TD/TT: 08/09/25 1158 Stenciler: us Tiffany Kent MD IMG US PROCEDURES Final Re sult * CT Abdomen Pelvis w/ Contrast (08/05/2025 10:19 PM EST) Anatomical Region Laterality Modality Body, Pelvis, Abdomen Computed T omography 08/05/2025 10:1 9 PM EST Narrative 08/05/2025 10:22 PM EST [place] [address] CT Scan Report Signed Patient: Edilma Méndez MR#: [id number] : 1945 Acct:[id number] Age/Sex: 80 / F ADM Date: 08/05/25 Loc: HO.ED Attending Dr: Ordering Physician: Kelly Heath DO Date of Service: 08/05/25 Procedure(s): CT abdomen pelvis w IV con Accession Number(s): [id number] cc: Tiffany Kent MD; Kelly Heath DO Report Number: [id number]: Total DLP = 0.00 mGy-cm Reason for Exam: abd pain CLINICAL HISTORY: abd pain CT abdomen and pelvis with contrast Comparison: CT/OH/SR - CT ABDOMEN PELVIS WITH IV CONTRAST - 05/24/24 09:45 EDT Findings: Bibasilar atelectatic /dependent changes. Small hiatal hernia. Status post cholecystectomy. Moderate intra and extrahepatic ductal dilation with CBD measuring up to 1.1 cm in diameter. No radiopaque ductal stone is seen. Findings are unchanged in the interval. Unremarkable gallbladder and solid organs. No urolithiasis. No bowel obstruction, pneumoperitoneum, or pneumatosis. Pelvic contents unremarkable. Normal appendix. The bones are intact. IMPRESSION: No acute findings. Post cholecystectomy changes with stable distention of the biliary tree with CBD measuring up to 1.1 cm in diameter. This document has been electronically signed by: Eli Fry MD on 08/05/2025 22:19:45 Dictated By: Eli Fry MD Signed By: <Electronically signed by Eli Fry MD in OV> 08/05/252220 DD/ 18 TD/TT: 08/05/252218 Stenciler: Procedure Note Jordanter, Image - 08/05/[address] [place] [address] [address] Scan Report Signed Patient: Esther Méndez#: [id number] : 5Acct:[id number] Age/Sex: 80 / FADM Date: 08/05/25 Loc: HO.ED Attending Dr: Ordering Physician: Kelly Heath DO Date of Service: 08/05/25 Procedure(s): CT abdomen pelvis w IV con Accession Number(s): [id number] cc: Tiffany Kent MD; Kelly Heath DO Report Number: [id number]: Total DLP = 0.00 mGy-cm Reason for Exam: abd pain CLINICAL HISTORY: abd pain CT abdomen and pelvis with contrast Comparison: CT/[place]/SR - CT ABDOMEN PELVIS WITH IV CONTRAST - 05/24/24 09:45 EDT Findings: Bibasilar atelectatic /dependent changes. Small hiatal hernia. Status post cholecystectomy. Moderate intra and extrahepatic ductal dilation with CBD measuring up to 1.1 cm in diameter. No radiopaque ductal stone is seen. Findings are unchanged in the interval. Unremarkable gallbladder and solid organs. No urolithiasis. No bowel obstruction, pneumoperitoneum, or pneumatosis. Pelvic contents unremarkable. Normal appendix. The bones are intact. IMPRESSION: No acute findings. Post cholecystectomy changes with stable distention of the biliary tree with CBD measuring up to 1.1 cm in diameter. This document has been electronically signed by: Eli Fry MD on 08/05/2025 22:19:45 Dictated By: Eli Fry MD Signed By: <Electronically signed by Eli Fry MD in OV> 08/05/252220 DD/ 18 TD/TT: 08/05/252218 Stenciler: [facility] External Provider IMG CT PROCEDURES Edited Result - Final * VENOUS BLOOD GAS (08/05/2025 9:05 PM EST) VBG pH 7.43 7.32 - 7.43 [facility] Comment:METER #: [id number] additional_comment: [place]ano corado VBG PCO2 35 mmHg [facility] Comment:METER #: [id number] additional_comment: [place] cor[place] VBG PO2 69 mmHg [facility] Comment:METER #: [id number] additional_comment: [place] corado VBG Base Excess -0.2 mmol/L [facility] Comment:METER #: [id number] additional_comment: [place] corado VBG HCO3 23 22 - 26 mmol/L [facility] Comment:METER #: [id number] additional_comment: [place]ano croado O2 Sat, Casey 93.0 % [facility] Comment:METER #: [id number] additional_comment: [place]ano corado 08/05/2025 9:05 PM EST 08/05/2025 9:10 PM EST us Generic External Data Provider LAB BLOOD ORDERAB LES Final Result Performing Organization Address City/[facility] Co de Phone Number [facility] [address] [place] [phone] * Lactic Acid (08/05/2025 9:01 PM EST) Lactic Acid 1.3 0.5 - 2.0 mmol/L [facility] 08/05/2025 9:01 PM EST 08/05/2025 9:04 PM EST us Generic External Data Provider LAB BLOOD ORDERAB LES Final Result Performing Organization Address [facility] Co de Phone Number [facility] [address] [place] [phone] * XR Chest 2 Views (08/05/2025 6:50 PM EST) Only the most recent of3 resultswithin the time period is included. Anatomical Region Laterality Modality Chest Radiographic Nicolasa ging 08/05/2025 6:50 PM EST Narrative 08/05/2025 6:51 PM EST [address] [address] XRay Report Signed Patient: Edilma Méndez MR#: [id number] : 1945 Acct:[id number] Age/Sex: 80 / F ADM Date: 08/05/25 Loc: HO.ED Attending Dr: Ordering Physician: Generic ED Physician Date of Service: 08/05/25 Procedure(s): XR chest 2V Accession Number(s): [id number] cc: Tiffany Kent MD; Generic ED Physician Reason for Exam: cough CLINICAL HISTORY: cough 2 view chest x-ray. Comparison: 08/01/2025 Findings: No consolidation or effusion. Cardiac and mediastinal contours are stable. Bones unremarkable. Impression: 1. No acute pulmonary disease. This document has been electronically signed by: Nikolas Muro MD on 08/05/2025 18:50:19 Dictated By: Nikolas Muro MD Signed By: <Electronically signed by Nikolas Muro MD in OV> 08/05/251850 DD/ 49 TD/TT: 08/05/251849 Stenciler: Procedure Note Donotuseinterpreter, Image - 08/05/[address] [address] XRay Report Signed Patient: Domenica MéndezR#: [id number] : 5Acct:[id number] Age/Sex: 80 / FADM Date: 08/05/25 Loc: HO.ED Attending Dr: Ordering Physician: Generic ED Physician Date of Service: 08/05/25 Procedure(s): XR chest 2V Accession Number(s): [id number] cc: Tiffany Kent MD; Generic ED Physician Reason for Exam: cough CLINICAL HISTORY: cough 2 view chest x-ray. Comparison: 08/01/2025 Findings: No consolidation or effusion. Cardiac and mediastinal contours are stable. Bones unremarkable. Impression: 1. No acute pulmonary disease. This document has been electronically signed by: Nikolas Muro MD on 08/05/2025 18:50:19 Dictated By: Nikolas Muro MD Signed By: <Electronically signed by Nikolas Muro MD in OV> 08/05/251850 DD/ 49 TD/TT: 08/05/251849 Stenciler: [facility] External Provider IMG XR PROCEDURES Edited Result - Final * High Sensitivity Troponin I (08/05/2025 5:47 PM EST) Only the most recent of2 resultswithin the time period is included. Pathologist [facility] TROPONIN I HIGH SENSITIVITY <2.7 <3.5 - 17.0 ng/L [facility] Comment:The Brown high sens itivity Troponin-I results should beused in conjunction with other diagnostic information suchas ECG, clinical observations and information, and patientsymptoms to aid in the diagnosis of ND. 08/05/2025 5:47 PM EST 08/05/2025 5:50 PM EST Generic External Data Provider LAB BLOOD ORDERAB LES Final Result [facility] [address] [place] [phone] * SARS-CoV-2 RNA, Influenza A/B, and RSV RNA, Ql NAAT (08/05/2025 5:47 PM EST) Pathologist [facility] Influenza A PCR NEGATIVE Negative [facility] Influenza B PCR NEGATIVE Negative [facility] Resp Syncy Virus RNA Qual PCR NEGATIVE Negative [facility] SARS COV2 PCR NEGATIVE Negative [facility] Comment:All test results mus t be correlated with clinical findings.Negative results do not preclude SARS-CoV2, influenza Avirus, influenza B virus and/or RSV infectionand should not be used as the sole basis for treatment orother patient management decisions. Negative results must becombined with clinical observations, patient history, andepidemiological information.This test has not been evaluated for monitoring treatment ofinfection.This test has been authorized by the FDA under an EmergencyUse Authorization (EUA) for use by authorized laboratories.Testing performed on the [employer] GeneXpert utilizingreal-time RT-PCR.All SARS CoV2 and positive influenza A/B results arereported to [facility]. 08/05/2025 5:47 PM EST 08/05/2025 5:50 PM EST us Generic External Data Provider LAB MICROBIOLOGY - GENERAL ORDERABLES Final Result [facility] [address] [place] [phone] * (ABNORMAL) CBC auto differential (08/05/2025 5:47 PM EST) Only the most recent of2 resultswithin the time period is included. White Blood Count 9.3 4.8 - 10.8 X10*3/uL [facility] Red Blood Count 4.67 4.20 - 5.50 X10*6/uL [facility] Hemoglobin 13.5 12.0 - 16.0 g/dl [facility] Hematocrit 41.5 37.0 - 47.0 % [facility] Mean Corpuscular Volume 88.9 80.0 - 98.0 fL [facility] Mean Corpuscular Hemoglobin 28.9 27.0 - 33.0 pg [facility] Mean Corpuscular HGB Conc 32.5 31.0 - 35.0 g/dl [facility] Red Cell Distribution Width 13.1 11.0 - 16.0 % [facility] Platelet Count 254 160 - 400 X10*3/uL [facility] Mean Platelet Volume 10.8 9.4 - 12.3 fL [facility] Neutrophils Percent Auto 86.9(H) 45 - 73 % [facility] Imm Gran Pct Auto 1.2(H) 0.0 - 0.4 % [facility] Lymphocytes Percent Auto 9.5(L) 20 - 40 % [facility] Monocytes Percent Auto 2.3 2 - 11 % [facility] Eosinophils Percent Auto 0.0 0 - 4 % [facility] Basophils Percent Auto 0.1 0 - 2 % [facility] NRBC Pct Auto 0.0 0.0 - 0.2 /100WBC [facility] Neutrophils Absolute Auto 8.1 2.0 - 8.3 x10*3/uL [facility] Imm Gran Abs Auto 0.11(H) 0.00 - 0.03 X10*3/uL [facility] Lymphocytes Absolute Auto 0.9(L) 1.2 - 4.9 X10*3/uL [facility] Monocytes Absolute Auto 0.2 0.1 - 1.2 X10*3/uL [facility] Eosinophils Absolute Auto 0.0 0.0 - 0.4 X10*3/uL [facility] Basophils Absolute Auto 0.0 0.0 - 0.2 X10*3/uL [facility] NRBC Abs Auto 0.000 0.0 - 0.012 X10*3/uL [facility] 08/05/2025 5:47 PM EST 08/05/2025 5:50 PM EST us Generic External Data Provider LAB BLOOD ORDERAB LES Final Result [facility] [address], [place] [phone] * (ABNORMAL) Comprehensive Metabolic Panel (08/05/2025 5:47 PM EST) Only the most recent of2 resultswithin the time period is included. Sodium 138 135 - 145 mmol/L [facility] Potassium 4.4 3.3 - 5.1 mmol/L [facility] Chloride 109(H) 96 - 108 mmol/L [facility] Carbon Dioxide 19(L) 22 - 29 mmol/L [facility] Anion Gap 14 12 - 20 [facility] Urea Nitrogen (BUN) 26(H) 9 - 16 mg/dL [facility] Creatinine, Serum 0.85 0.5 - 1.4 mg/dL [facility] Creatinine Clr Calc Pharmacy 39.8 [facility] Comment:Provided height and weight: 154.94 cm,53.5 kg.eGFR (calculated from the MDRD study equation) and eCrCl(calculated from the Cockcroft-Gault equation) are based ondifferent parameters and may not yield comparable results.If eCrCl result is absurd, please check patient'sheight/weight. Estimated Glomerular Filt Rate >60 [facility] Comment:Chronic Kidney Disea se: Estimated GFR < 60 mL/min/1.51b5Obchce Kidney Disease: Estimated GFR < 15 mL/min/1.73m2 Glucose 199(H) 60 - 115 mg/dL [facility] Calcium 9.7 8.4 - 10.2 mg/dL [facility] Bilirubin, Total 0.4 0.0 - 1.0 mg/dL [facility] Aspartate Amino Transferase 26 5 - 31 U/L [facility] Alanine Aminotransferase 24 0 - 31 U/L [facility] Total Protein 7.5 6.5 - 8.0 g/dL [facility] Albumin Level 4.3 3.5 - 5.0 g/dL [facility] Alkaline Phosphatase 149(H) 39 - 117 U/L [facility] 08/05/2025 5:47 PM EST 08/05/2025 5:50 PM EST us Generic External Data Provider LAB BLOOD ORDERAB LES Final Result [facility] [address] [place] [address] [phone] * POCT Rapid Influenza B BROWN ID NOW (08/01/2025 10:24 AM EST) Influenza B Negative Negative, Indeterminate [facility] QC Media Lot # [id number] [facility] Lot# Expiration Date 2783,027 [facility] Swab 08/01/2025 10:2 4 AM EST us Ang Ulloa MD POINT OF CARE TEST ENTER/EDIT OR DERABLES Final Result Performing Organization Address [facility] Co de Phone Number [facility] [address] [place] [phone] * POCT Rapid Influenza A BROWN ID NOW (08/01/2025 10:24 AM EST) Influenza A Negative Negative, Indeterminate [facility] QC Media Lot # [id number] [facility] Lot# Expiration Date ,027 [facility] Swab 08/01/2025 10:2 4 AM EST us Ang Ulloa MD POINT OF CARE TEST ENTER/EDIT OR DERABLES Final Result Performing Organization Address [facility] Phone Number [facility] [address] [place] [phone] * POCT Rapid Covid-19 BROWN ID NOW (08/01/2025 10:09 AM EST) Coronavirus Antigen PCR Negative Negative, Indeterminate, None Detected, Invalid, Specimen unsatisfactory for evaluation, Weakly Positive, 2+ QC Media Lot # [id number] Lot# Expiration Date [id number] Swab 08/01/2025 10:0 9 AM EST us Ang Ulloa MD POINT OF CARE TEST ENTER/EDIT OR DERABLES Final Result * XR KUB and Upright 2 Views (06/23/2025 9:53 PM EDT) Anatomical Region Laterality Modality Radiographic Nicolasa ging 06/23/2025 9:53 PM EDT Narrative 06/23/2025 9:56 PM EDT [address] [address] XRay Report Signed Patient: Edilma Méndez MR#: [id number] : 1945 Acct:[id number] Age/Sex: 80 / F ADM Date: 06/23/25 Loc: HO.ED Attending Dr: Ordering Physician: Kesha Wolf Date of Service: 06/23/25 Procedure(s): XR KUB Accession Number(s): [id number] cc: Tiffany Kent MD; Kesha Wolf Reason [...] in OV> 06/23/252154 DD/ 52 TD/TT: 06/23/252152 Stenciler: Procedure Note Donotuseinterpreter, Image - 06/23/2025 [place] [address] XRay Report Signed Patient: Esther Méndez#: [id number] : 5Acct:[id number] Age/Sex: 80 / FADM Date: 06/23/25 Loc: HO.ED Attending Dr: Ordering Physician: Kesha Wolf Date of Service: 06/23/25 Procedure(s): XR KUB Accession Number(s): [id number] cc: Tiffany Kent MD; Kesha Wolf Reason [...] in OV> 06/23/252154 DD/ 52 TD/TT: 06/23/252152 Stenciler: us [facility] External Provider IMG XR PROCEDURES Edited Result - Final * (ABNORMAL) Urinalysis Complete (06/23/2025 9:29 PM EDT) Color Urine Yellow [facility] Appearance Urine Clear [facility] PH 6.0 5.0 - 9.0 [facility] Glucose Urine UA Negative Negative mg/dL [facility] Urine Blood Negative Negative [facility] Specific [place] - Urine 1.010 1.005 - 1.025 [facility] Urine Protein Negative Neg-Trace mg/dL [facility] Urine Ketones Negative Negative mg/dL [facility] Nitrite Urine Negative Negative [facility] Leukocyte Esterase Urine Trace(A) Negative [facility] RBC Urine 0-2 0 - 2 /HPF [facility] Urine WBC 0-5 0 - 5 /HPF [facility] Urine Squamous Epithelial Cell 0-2 0 - 2 /HPF [facility] Urine Bacteria None Seen None Seen [facility] Hyaline Casts, Urine 0-2 0 - 2 /LPF [facility] 06/23/2025 9:29 PM EDT 06/23/2025 9:34 PM EDT us Generic External Data Provider LAB URINE ORDERAB LES Final Result [facility] [address] [place] [phone] * COVID-19 ID NOW (BROWN) (06/23/2025 3:57 PM EDT) IDNOW SERIAL# [id number] [facility] COVID-19 TEST Negative Negative [facility] COVID-19 NOTE See Note [facility] Comment: Results are for the identification of SARS-CoV2 RNA. TheSARS-CoV2 RNA is generally detectable in respiratory samplesduring the acute phase of infection. Positive results areindicative of the presence of SARS-CoV-2 RNA; clinicalcorrelation with patient history and other diagnosticinformation is necessary to determine patient infectionstatus. Positive results do not rule out bacterial infectionor co- infection with other viruses.Testing facilities within the [facility] are required to report all positive results [...] use by authorized laboratories.Testing performed on the Notif[employer] ID NOW utilizing NAAT. 06/23/2025 3:57 PM EDT 06/23/2025 4:12 PM EDT Generic External Data Provider LAB MOLECULAR CYNTHIA GNOSTICS ORDERABLES Final Result Performing Organization Address [facility] Co de Phone Number [facility] [address] [place] [phone] * Lipase (06/23/2025 3:57 PM EDT) [facility] Lipase 37 8 - 78 U/L [facility] 06/23/2025 3:57 PM EDT 06/23/2025 4:12 PM EDT Generic External Data Provider LAB BLOOD ORDERAB LES Final Result Performing Organization Address [facility] Co de Phone Number [facility] [address] [place] [phone] * POCT glucose manually resulted (06/15/2025 10:35 AM EDT) Pathologist [facility] Glucose Blood, POC 105 60 - 200 mg/dL QC Media Lot # [id number] Lot# Expiration Date Blood Capillary blood specimen / Unknown 06/15/2025 10:35 AM EDT Tiffany Kent MD POINT OF CARE TEST ENTER/E DIT ORDERABLES Final Result * (ABNORMAL) POCT glycosylated hemoglobin (Hgb A1c) (06/15/2025 10:34 AM EDT) Hemoglobin A1C 6.0(A) 4.0 - 5.7 % QC Media Lot # [id number] Lot# Expiration Date Blood Capillary blood specimen / Unknown 06/15/2025 10:34 AM EDT Tiffany Kent MD POINT OF CARE TEST ENTER/E DIT ORDERABLES Final Result * Albumin, Random Urine W/Creatinine (04/17/2024 8:35 AM EDT) Creatinine, Urine 111.68 mg/dL [facility] Microalbumin Urine 9.0 mg/L [facility] Microalbum Creatinine Ratio Ur 8.0 <30 ug/mg cr [facility] Comment:Albumin/Creatinine R atio Reference Ranges: Normal: < 30 ug/mg creatinine Microalbuminuria: 30 - 300 ug/mg creatinineClinical Albuminuria: > 300 ug/mg creatinine Urine 04/17/2024 8:35 AM EDT 04/17/2024 11:52 AM EDT Tiffany Kent MD LAB URINE ORDERABLES Final Result [facility] [address] [place] [phone] * Lipid Panel, Standard (04/17/2024 8:35 AM EDT) Triglycerides 107 <150 mg/dL [facility] Comment:Desirable Triglyceri de: less than 150 mg/dLBorderline High Triglyceride 150-199 mg/dLHigh Triglyceride: 200-499 mg/dLVery High Triglyceride: greater than or equal to 5OO mg/dL Cholesterol 115 <200 mg/dL [facility] Comment:Desirable Cholestero l: less than 200 mg/dLBorderline High Cholesterol: 200-239 mg/dLHigh Cholesterol: greater than 239 mg/dL LDL Cholesterol Calculated 40 <100 mg/dL [facility] Comment:Desirable LDL: less than 100 mg/dLNear Optimal/Above Optimal LDL: 110- 129 mg/dLBorderline High LDL: 130-159 mg/dLHigh LDL: 160-189 mg/dLVery High LDL: greater than or equal to 190 mg/dL HDL Cholesterol 54 >40 mg/dL [facility] Comment:Desirable HDL: great er than 40 mg/dL Note: This HDL assay may give artificially low results in patients with liver disease. Blood Venous blood specimen / Unknown 04/17/2024 8:35 AM EDT 04/17/2024 11:37 AM EDT Tiffany Kent MD LAB BLOOD ORDERABLES Final Result [facility] [address] [place] [phone] * Diabetes Eye Exam (02/18/2023) [facility] Signature Eye Exam Normal Normal Comment:Dr. [...] 08/07/2025 Patient has chronic kidney disease 08/07/2025 Insurance [facility] LONG-TERM OPTIONS (HMO D-SNP) Advance Directives Documents on File Type Date Recorded Patient Prep Room Supervisor Expl anation Advance Directives and Living Will 07/20/2024 1:20 PM Health Care Proxy Care Teams Director Of Marketing Operations Relationship Specialty Start Date End Date Yoli, MD Tiffany [address] [place] [phone] PCP - General Family Medicine 09/27/13 Cy Perdue MD [address] [place] [address] Cardiology 12/12/24 Dr. Phelps Psychiatry 02/21/25
--- OUTSIDE RECORDS SUMMARY | 2025-08-09 16:40 | XMS_ITS | Encounter Summary ---
Author Organization [employer] Address [address] [facility] 7 [place] [address] Care Team Providers Care Extension Specialist Name Role Phone Tiffany Kent MD Primary Care Provider [phone] Cy Perdue MD Unavailable [phone] Reason for Visit * Reason Onset Date Comments Med Refill 08/06/2025 Encounter Details Date Type Department Care Team ([facility] Contact Info) Description 08/06/2025 Telephone [facility] MEDICINE [address] [place] [address] Tiffany Kent MD [address] [place] [address] Med Refill Social History Tobacco Use Types Packs/Day Years [...] the past 12 months, has t he [employer], gas, oil or water company threatened to [...] encounter Miscellaneous Notes * Telephone Encounter - Jen Zhang RN - 08/06/2025 3:36 PM EST Return call placed to the pt with a resident care associate to inform that per [facility] that pt is 21days too early for a refill on the requested Trazadone and Omeprazole medication. Pt advised that this will be refilled with the next [facility] refill. Pt agreeable and stated understanding. * Telephone Encounter - Ynes Morrissey - 08/06/2025 10:52 AM EST Patient walked in (HIPAA on - was on old HIPAA got verbal from patient) requesting refill of medication: Trazodone 100mg Omeprazole 20mg documented in this encounter Plan of Treatment [...] chronic kidney disease No Sharmila Sr RN documented as of this encounter Visit Diagnoses [...] 08/07/2025 Patient has chronic kidney disease 08/07/2025 Assessment Noted Time PHQ-9 Depression Total Score: 1 06/15/20 10:49 AM EDT documented as of this encounter Care Teams Extension Specialist Relationship Specialty Start Date End Date Tiffany Kent MD [address] [place] [address] PCP - General Family Medicine 09/27/13 Cy Perdue MD [address] [place] [phone] Cardiology 12/12/24 Dr. Phelps Psychiatry 02/21/25 documented as of this encounter
--- OUTSIDE RECORDS SUMMARY | 2025-08-09 16:40 | XMS_ITS | Encounter Summary ---
Author Organization [employer] Address [address] [facility] [address] [place] [address] Care Team Providers Care Unit Operator Name Role Phone Tiffany Kent MD Primary Care Provider [phone] Cy Perdue MD Unavailable [phone] Reason for Visit * Reason Onset Date Comments NEBULIZER 08/07/2025 Encounter Details Date Type Department Care Team ([facility] Contact Info) Description 08/07/2025 Telephone [facility] [address] [place] [address] Ang Ulloa MD [address] [place] [address] NEBULIZER Social History Tobacco Use Types Packs/Day Years [...] the past 12 months, has t he [email or web address], gas, oil or water yetu threatened to shut off services in your [...] encounter Miscellaneous Notes * Telephone Encounter - Sharmila Sr RN - 08/07/2025 4:10 PM EST Received call from [facility] regarding a potential insurance discrepancy. [facility] reports they are unable to bill [employer] for the patient???s nebulizer due to conflicting information. Patient demographics and insurance information were verified over the phone. [facility] requested that the insurance card be faxed to their ???missing information?? line at [phone]. Consulted with the front line leader, who confirmed that the patient???s insurance is active; however, it appears that [facility] has a different date of on file for the patient. Per request, the insurance card and verification status were faxed to [facility]. Fax confirmation received. documented in this encounter Plan of Treatment [...] documented as of this encounter Care Teams Unit Operator Relationship Specialty Start Date End Date Tiffany Kent MD [address] [place] [phone] PCP - General Family Medicine 09/27/13 Cy Perdue MD [address] [place] [phone] Cardiology 12/12/24 Dr. Phelps Psychiatry 02/21/25 documented as of this encounter
--- OUTSIDE RECORDS SUMMARY | 2025-08-09 16:40 | XMS_ITS | Clinical Summary ---
Author Organization [facility] Address [address] [place] [address] Care Team Providers Care Religious Educator Name Role Phone Tiffany Kent MD Primary Care Provider [phone] Allergies No known active allergies Medications aspirin [...] Tobacco: Never Tobacco Cessation:Counseling Given: Not Answered [facility] Utilities Answer Date Recorded In the past 12 months has e [employer], [employer], [employer], or water [employer] threatened to shut off services in your [...] any time in the past 12 m [facility], were you homeless or living in a skilled nursing (including now)? No 11/11/2024 Comments Unknown Sex [...] patient's age to complete this topic Insurance [facility] OUT OF NETWORK Advance Directives * Full Code (Latest Code Status on File) Date Activated Date Inactivated Comments 11/10/2024 9:12 AM Care Teams Religious Educator Relationship Specialty Start Date End Date Tiffany Kent MD [address] [place] [phone] PCP - General Family Medicine 11/10/24
--- OUTSIDE RECORDS SUMMARY | 2025-08-09 16:40 | XMS_ITS | Encounter Summary ---
Author Organization [employer] Address [address] [facility] 7 [place] [address] Care Team Providers Care Vacuum Metalizing Supervisor Name Role Phone Tiffany Kent MD Primary Care Provider [phone] Cy Perdue MD Unavailable [phone] Reason for Visit * Reason Comments Med Refill Encounter Details Date Type Department Care Team ([facility] Contact Info) Description 09/10/2023 Refill [facility] [address] [place] [address] Tiffany Kent MD [address] [place] [address] Social History Tobacco Use Types Packs/Day Years [...] on filedocumented in this encounter Care Teams Vacuum Metalizing Supervisor Relationship Specialty Start Date End Date Tiffany Kent MD [address] [place] [address] PCP - General Family Medicine 09/27/13 Cy Perdue MD [address] [place] [phone] Cardiology 12/12/24 Dr. Phelps Psychiatry 02/21/25 documented as of this encounter
--- OUTSIDE RECORDS SUMMARY | 2025-08-09 16:40 | XMS_ITS | Encounter Summary ---
Author Organization [employer] Address [address] [facility] 7[address] [place] [address] Care Team Providers Care Digestion Operator Name Role Phone Tiffany Kent MD Primary Care Provider [phone] Cy Perdue MD Unavailable [phone] Encounter Details Date Type Department Care Team ([facility] Contact Info) Description 08/05/2025 Orders Only [facility] External Provider, [facility] Social History Tobacco Use Types Packs/Day Years [...] is your housing situation today? I have edgarmaycol wolf 06/01/[address] you [...] Ulloa MD documented as of this encounter Procedures Procedure Name Priority Date/Time Associated Diagnosis Comments CT ABDOMEN PELVIS W CONTRAST Routine 08/05/2025 10:19 PM EST VENOUS BLOOD GAS Routine 08/05/2025 9:05 PM EST LACTIC ACID Routine 08/05/2025 9:01 PM EST XR CHEST 2 VIEWS Routine 08/05/2025 6:50 PM EST HIGH SENSITIVITY TROPONIN I Routine 08/05/2025 5:47 PM EST SARS COV2/INFLUENZA A/B AND RSV RNA QL NAAT Routine 08/05/2025 5:47 PM EST CBC WITH AUTO DIFFERENTIAL Routine 08/05/2025 5:47 PM EST COMPREHENSIVE METABOLIC PANEL Routine 08/05/2025 5:47 PM EST documented in this encounter Results * CT Abdomen Pelvis w/ Contrast (08/05/2025 10:19 PM EST) Anatomical Region Laterality Modality Body, Pelvis, Abdomen Computed T omography 08/05/2025 10:1 9 PM EST Narrative 08/05/2025 10:22 PM EST [place] [address] [address] Scan Report Signed Patient: Edilma Méndez MR#: [id number] : 1945 Acct:[id number] Age/Sex: 80 / F ADM Date: 08/05/25 Loc: .ED Attending Dr: Ordering Physician: Kelly Heath DO Date of Service: 08/05/25 Procedure(s): CT abdomen pelvis w IV con Accession Number(s): [id number] cc: Tiffany Kent MD; Kelly Heath DO Report Number: [id number]: Total DLP = 0.00 mGy-cm Reason for Exam: abd pain CLINICAL HISTORY: abd pain CT abdomen and pelvis with contrast Comparison: CT/RI/SR - CT ABDOMEN PELVIS WITH IV CONTRAST [...] in OV> 08/05/252220 DD/ 18 TD/TT: 08/05/252218 Brim Stiffener: Procedure Note Donotuseinterpreter, Image - 08/05/[address] [place] [address] [address] Scan Report Signed Patient: Esther Méndez#: [id number] : 5Acct:[id number] Age/Sex: 80 / FADM Date: 08/05/25 Loc: HO.ED Attending Dr: Ordering Physician: Kelly Heath DO Date of Service: 08/05/25 Procedure(s): CT abdomen pelvis w IV con Accession Number(s): [id number] cc: Tiffany Kent MD; Kelly Heath DO Report Number: [id number]: Total DLP = 0.00 mGy-cm Reason for Exam: abd pain CLINICAL HISTORY: abd pain CT abdomen and pelvis with contrast Comparison: CT/RI/SR - CT ABDOMEN PELVIS WITH IV CONTRAST [...] in OV> 08/05/252220 DD/ 18 TD/TT: 08/05/252218 Brim Stiffener: [facility] External Provider IMG CT PROCEDURES Edited Result - Final * VENOUS BLOOD GAS (08/05/2025 9:05 PM EST) VBG pH 7.43 7.32 - 7.43 [facility] Comment:METER #: [id number] additional_comment: Urbano corado VBG PCO2 35 mmHg [facility] Comment:METER #: [id number] additional_comment: Cb mickie VBG PO2 69 mmHg [facility] Comment:METER #: [id number] additional_comment: Urbano corado VBG Base Excess -0.2 mmol/L [facility] Comment:METER #: [id number] additional_comment: Urbano corado VBG HCO3 23 22 - 26 mmol/L [facility] Comment:METER #: [id number] additional_comment: Urbano corado O2 Sat, Casey 93.0 % [facility] Comment:METER #: [id number] additional_comment: Urbano corado 08/05/2025 9:05 PM EST 08/05/2025 9:10 PM EST Generic External Data Provider LAB BLOOD ORDERAB LES Final Result [facility] [address] [place], [place] [phone] * Lactic Acid (08/05/2025 9:01 PM EST) Lactic Acid 1.3 0.5 - 2.0 mmol/L [facility] 08/05/2025 9:01 PM EST 08/05/2025 9:04 PM EST us Generic External Data Provider LAB BLOOD ORDERAB LES Final Result [facility] [address] [place] [phone] * XR Chest 2 Views (08/05/2025 6:50 PM EST) Anatomical Region Laterality Modality Chest Radiographic Nicolasa ging 08/05/2025 6:50 PM EST Narrative 08/05/2025 6:51 PM EST [place] [address] XRay Report Signed Patient: Edilma Méndez MR#: [id number] : 1945 Acct:[id number] Age/Sex: 80 / F ADM Date: 08/05/25 Loc: HO.ED Attending Dr: Ordering Physician: Generic ED Physician Date of Service: 08/05/25 Procedure(s): XR chest 2V Accession Number(s): [id number] cc: Tiffany Kent MD; Generic ED Physician [...] in OV> 08/05/251850 DD/ 49 TD/TT: 08/05/251849 Brim Stiffener: Procedure Note Donotuseinterpreter, Image - 08/05/[address] [address] XRay Report Signed Patient: Domenica MéndezR#: [id number] : 5Acct:[id number] Age/Sex: 80 / FADM Date: 08/05/25 Loc: HO.ED Attending Dr: Ordering Physician: Generic ED Physician Date of Service: 08/05/25 Procedure(s): XR chest 2V Accession Number(s): [id number] cc: Tiffany Kent MD; Generic ED Physician [...] in OV> 08/05/251850 DD/ 49 TD/TT: 08/05/251849 Brim Stiffener: [facility] External Provider IMG XR PROCEDURES Edited Result - Final * SARS-CoV-2 RNA, Influenza A/B, and RSV RNA, Ql NAAT (08/05/2025 5:47 PM EST) Influenza A PCR NEGATIVE Negative [facility] Influenza B PCR NEGATIVE Negative [facility] Resp Syncy Virus RNA Qual PCR NEGATIVE Negative [facility] SARS COV2 PCR NEGATIVE Negative [facility] Comment:All test results mus t be [...] use by authorized laboratories.Testing performed on the [employer] GeneXpert utilizingreal-time RT-PCR.All SARS CoV2 and positive influenza A/B results arereported to [facility]. 08/05/2025 5:47 PM EST 08/05/2025 5:50 PM EST Generic External Data Provider LAB MICROBIOLOGY - GENERAL ORDERABLES Final Result Performing Organization Address City/[facility]/ZIP Co de Phone Number [facility] [address] [place] [phone] * High Sensitivity Troponin I (08/05/2025 5:47 PM EST) Pathologist [facility] TROPONIN I HIGH SENSITIVITY <2.7 <3.5 - 17.0 ng/L [facility] Comment:The Edwards high sens itivity Troponin-I results should beused in conjunction with other diagnostic information suchas ECG, clinical observations and information, and patientsymptoms to aid in the diagnosis of CO. 08/05/2025 5:47 PM EST 08/05/2025 5:50 PM EST Generic External Data Provider LAB BLOOD ORDERAB LES Final Result Performing Organization Address [facility] Co de Phone Number [facility] [address] [place] [phone] * (ABNORMAL) Comprehensive Metabolic Panel (08/05/2025 5:47 PM EST) [facility] Sodium 138 135 - 145 mmol/L [facility] Potassium 4.4 3.3 - 5.1 mmol/L [facility] Chloride 109(H) 96 - 108 mmol/L [facility] Carbon Dioxide 19(L) 22 - 29 mmol/L [facility] Anion Gap 14 12 - 20 [facility] Urea Nitrogen (BUN) 26(H) 9 - 16 mg/dL [facility] Creatinine, Serum 0.85 0.5 - 1.4 mg/dL [facility] Creatinine Clr Calc Pharmacy 39.8 [facility] Comment:Provided height and weight: 154.94 cm,53.5 kg.eGFR (calculated from the MDRD study equation) and eCrCl(calculated from the Cockcroft-Gault equation) are based ondifferent parameters and may not yield comparable results.If eCrCl result is absurd, please check patient'sheight/weight. Estimated Glomerular Filt Rate >60 [facility] Comment:Chronic Kidney Disea se: Estimated GFR < 60 mL/min/1.37g7Dvnihl Kidney Disease: Estimated GFR < 15 mL/min/1.73m2 Glucose 199(H) 60 - 115 mg/dL [facility] Calcium 9.7 8.4 - 10.2 mg/dL [facility] Bilirubin, Total 0.4 0.0 - 1.0 mg/dL [facility] Aspartate Amino Transferase 26 5 - 31 U/L [facility] Alanine Aminotransferase 24 0 - 31 U/L [facility] Total Protein 7.5 6.5 - 8.0 g/dL [facility] Albumin Level 4.3 3.5 - 5.0 g/dL [facility] Alkaline Phosphatase 149(H) 39 - 117 U/L [facility] 08/05/2025 5:47 PM EST 08/05/2025 5:50 PM EST us Generic External Data Provider LAB BLOOD ORDERAB LES Final Result [facility] [address] [place], [place] [phone] * (ABNORMAL) CBC auto differential (08/05/2025 5:47 PM EST) White Blood Count 9.3 4.8 - 10.8 X10*3/uL [facility] Red Blood Count 4.67 4.20 - 5.50 X10*6/uL [facility] Hemoglobin 13.5 12.0 - 16.0 g/dl [facility] Hematocrit 41.5 37.0 - 47.0 % [facility] Mean Corpuscular Volume 88.9 80.0 - 98.0 fL [facility] Mean Corpuscular Hemoglobin 28.9 27.0 - 33.0 pg [facility] Mean Corpuscular HGB Conc 32.5 31.0 - 35.0 g/dl [facility] Red Cell Distribution Width 13.1 11.0 - 16.0 % [facility] Platelet Count 254 160 - 400 X10*3/uL [facility] Mean Platelet Volume 10.8 9.4 - 12.3 fL [facility] Neutrophils Percent Auto 86.9(H) 45 - 73 % [facility] Imm Gran Pct Auto 1.2(H) 0.0 - 0.4 % [facility] Lymphocytes Percent Auto 9.5(L) 20 - 40 % [facility] Monocytes Percent Auto 2.3 2 - 11 % [facility] Eosinophils Percent Auto 0.0 0 - 4 % [facility] Basophils Percent Auto 0.1 0 - 2 % [facility] NRBC Pct Auto 0.0 0.0 - 0.2 /100WBC [facility] Neutrophils Absolute Auto 8.1 2.0 - 8.3 x10*3/uL [facility] Imm Gran Abs Auto 0.11(H) 0.00 - 0.03 X10*3/uL [facility] Lymphocytes Absolute Auto 0.9(L) 1.2 - 4.9 X10*3/uL [facility] Monocytes Absolute Auto 0.2 0.1 - 1.2 X10*3/uL [facility] Eosinophils Absolute Auto 0.0 0.0 - 0.4 X10*3/uL [facility] Basophils Absolute Auto 0.0 0.0 - 0.2 X10*3/uL [facility] NRBC Abs Auto 0.000 0.0 - 0.012 X10*3/uL [facility] 08/05/2025 5:47 PM EST 08/05/2025 5:50 PM EST us Generic External Data Provider LAB BLOOD ORDERAB LES Final Result [facility] [address] [place] [phone] documented in this encounter Visit Diagnoses Not on filedocumented [...] documented as of this encounter Care Teams Digestion Operator Relationship Specialty Start Date End Date Tiffany Kent MD [address] [place] [address] PCP - General Family Medicine 09/27/13 Cy Perdue MD [address] [place] [phone] Cardiology 12/12/24 Dr. Phelps Psychiatry 02/21/25 documented as of this encounter
--- OUTSIDE RECORDS SUMMARY | 2025-08-09 16:40 | XMS_ITS | Encounter Summary ---
Author Organization [employer] Address [address] [place] [address] 7 [place] [address] Care Team Providers Care Surface Miner Name Role Phone Tiffany Kent MD Primary Care Provider [phone] Cy Perdue MD Unavailable [phone] Encounter Details Date Type Department Care Team ([facility] Contact Info) Description 06/09/2023 Orders Only [facility] MEDICINE [address] [place] [address] Tiffany Kent MD [address] [place] [address] Right-sided low back pain with right-sided sciatica, [...] type documented in this encounter Care Teams Surface Miner Relationship Specialty Start Date End Date Tiffany Kent MD [address] [place] [address] PCP - General Family Medicine 09/27/13 Cy Perdue MD [address] [place] [address] Cardiology 12/12/24 Dr. Phelps Psychiatry 02/21/25 documented as of this encounter
--- OUTSIDE RECORDS SUMMARY | 2025-08-09 16:41 | XMS_ITS | Data Portability ---
Author Organization [facility] Address [address] [place] [address] Care Team Providers Care Glue Spreading Machine Operator Name Role Phone HIM CCA OTHER [...] Vitals Date Recorded Heart rate Oxygen saturation Respiratory rate Body temperature Systolic And Diastolic Provider Name and Address Organization Details Last Updated DateTime 4 79 /min 96 % 10 /min 98.8 [degF] 134/68 [...] ICD10 Code Diagnosis IMO Codes Diagnosis Note [id number] Katherine Chadwick MD Main - [facility] [address] [place] [phone] 08/24/2024 12:08:28 08/24/2024 12:43:33 Cough [id number] R05.9 79 year old female with COPD, [...] assessment and plan as documented by the steel crane operator. I provided real-time medical direction for this [...] Mario Member ID Guarantor Name 08/24/2024 1 [facility] - DOS ON OR AFTER 2022 - DUAL ELIGIBLE - [employer] AND ONE [employer] (MEDICARE REPLACEMENT/AD VANTAGE - HMO) Edilma Méndez [id number] Edilma Méndez Notes Date Note Type Note Provider Name and Address Organization Details Recorded Time 08/24/2024 text/html CRC Nurse Triage Notes (Darius Khan): Reason For Request: Patient is short of breath, and has a history of breathing problems, wants checked out. Chief Complaints: Breathing problems PMH: Hypertension, Gastroesophageal Reflux Disease (GERD), Anxiety Disorder, COPD/Asthma Comments: Supervisor Varnish verified the Pt.'s name//address and phone number. [...] ...................... ...................... ...................... ...................... ...................... ...................... ......... Carpenter Assistant Note From Sai Barajas: Dispatched to above address for cough, breathing problems. On arrival patient 79 y/o F, found sitting on cough, AOX4, airway patent, speaking in full sentences, good color, in no apparent distress. Patient Ethiopian speaking only, family on scene to translate. [...] radial pulse, skin pink warm and dry. [facility] contacted, spoke with Dr. Chadwick, advised of patient complaints and exam findings. [facility] believes it is likely viral URI, recommends home care, rest and follow up with PCP should symptoms worsen or continue over the next week. Patient and family advised of [facility] recommendations, home care and red flags. Patient and family understand and agree with this plan. Patient and family have no additional questions or concerns at this time. SC8 clear. EOR. ...................... ...................... ...................... ...................... ...................... ...................... ......... [facility] Consulted: Katherine Chadwick ...................... ...................... ...................... ...................... ...................... ...................... ......... Disposition: Fulfilled Katherine Cahdwick MD [address] [facility],[address], [place], [address], [employer] 08/24/2024 12:13:00 OBGyn Episode No OBEpisode recorded.
== END 2025-08-09 10:58 | disposition home or self-care (01) ==
LOC: HO.US 10:57
PROVIDERS: PCP Family Medicine; Visit Provider Family Medicine
DX: E04.1 Nontoxic single thyroid nodule (principal)
CPT/HCPCS: 76536

== ENCOUNTER → 2025-08-09 11:02 | Outpatient (BNV) | payer OTHER, SELFPAY | PROVIDERS: PCP Family Medicine; Visit Provider Radiology Diagnostic Radiology | DX: E04.2 Nontoxic multinodular goiter (principal) | CPT/HCPCS: 76536 ==

== ENCOUNTER 2025-08-10 09:58 | Emergency (ER) | payer OTHER, SELFPAY ==
--- OUTSIDE RECORDS SUMMARY | 2025-06-15 09:30 | XMS_ITS | Encounter Summary ---
Author Organization [employer] Address [address] [place] [address] Care Team Providers Care Duct Layer Supervisor Name Role Phone Tiffany Kent MD Primary Care Provider [phone] Cy Perdue MD Unavailable [phone] Reason for Referral * Imaging (Routine) - Authorized Specialty Diagnoses / Procedures Referred By Contac t Referred To Contact Radiology Diagnoses Thyroid nodule Procedures US Thyroid Tiffany Kent MD [address] [place] [id number] Phone: tel: fax: [address] Phone: tel: fax: Referral ID Status Reason Start Date Expiration Date V isits Requested Visits Authorized [id number] Authorized 06/15/2025 06/15/2026 1 1 Reason for Visit * Reason Comments Follow-up Encounter Details Date Type Department Care Team (Latest Contact Info) Description 06/15/2025 10:30 AM EDT Office Visit [facility] [address] [place] [address] [phone] Tiffany Kent MD [address] [place], [place] [id number] Type 2 diabetes mellitus without complication, with long-term current use of insulin (CMS/HCC) (Primary Dx); Essential hypertension; Hyperlipidemia, unspecified hyperlipidemia type; Pulmonary emphysema, unspecified emphysema type (CMS/HCC); Acute non-ST elevation myocardial infarction (NSTEMI) ([facility]); History of pulmonary embolism; Anemia, unspecified type; Thyroid nodule; Severe dementia with other behavioral disturbance, unspecified dementia type ([facility]); Encounter for immunization; Other specified health status Social History Tobacco Use Types Packs/Day Years [...] Answer Date Recorded Patient Health Questionnaire-9 Score 1 06/15/2025 Patient Health Questionnaire-9 Score 1 06/15/2025 Last PHQ-9: Questionnaire Data Not on file 0 06/15/2025 Housing Stability Answer Date Recorded What is [...] Answer Date Recorded Patient Health Questionnaire-2 Score 1 06/15/2025 Internet Access Answer Date Recorded Internet Access Q1 Yes 06/01/2024 Internet Access Q2 Not on file 06/01/2024 Comments Unknown Sex and Gender Information Value Date Recorded Sex Assigned at Female 07/20/2022 10:15 AM EDT Legal Sex Female 10:15 AM EDT Gender Identity Female 07/20/2022 10:15 AM EDT Sexual Orientation Straight 07/20/2022 10 :15 AM EDT documented as of this encounter Last Filed Vital Signs Vital Sign Reading Time Taken Comments Blood Pressure 100/64 06/15/2025 10:23 AM EDT Pulse 74 06/15/2025 10:23 AM EDT Temperature 37.2 C (98.9 F) 06/15/2025 10:23 AM EDT Respiratory Rate 20 06/15/2025 10:23 AM EDT Oxygen Saturation 98% 06/15/2025 10:23 AM EDT Inhaled Oxygen Concentration - - Weight 52.2 kg (115 lb) 06/15/2025 10:23 AM EDT Height - - Body Mass Index 23.23 02/21/2025 10:10 AM EDT documented in this encounter Functional Status * Over the past 2 weeks, how often have you been bothered by any of the following problems? Question Answer Date of Assessment Author Patient Health Questionnaire-2 Score 1 05/22 10:49 AM Bernice Parks MA * Little interest or pleasure in doing things Answer Date of Assessment Author Several days 06/15/2025 10:49 AM Beverly Parks MA * Feeling down, depressed, or hopeless Answer Date of Assessment Author Not at all 06/15/2025 10:49 AM Beverly Parks MA * Trouble falling or staying asleep, or sleeping too much Answer Date of Assessment Author Not at all 06/15/2025 10:49 AM Beverly Parks MA * Feeling tired or having little energy Answer Date of Assessment Author Not at all 06/15/2025 10:49 AM Beverly Parks MA * Poor appetite or overeating Answer Date of Assessment Author Not at all 06/15/2025 10:49 AM Beverly Parks MA * Feeling bad about yourself - or that you are a failure or have let yourself or your family down Answer Date of Assessment Author Not at all 06/15/2025 10:49 AM Beverly Parks MA * Trouble concentrating on things, such as reading the newspaper or watching television Answer Date of Assessment Author Not at all 06/15/2025 10:49 AM Beverly Parks MA * Moving or speaking so slowly that other people could have noticed? Or the opposite - being so fidgety or restless that you have been moving around a lot more than usual. Answer Date of Assessment Author Not at all 06/15/2025 10:49 AM Beverly Parks MA * Thoughts that you would be better off or hurting yourself in some way Answer Date of Assessment Author Not at all 06/15/2025 10:49 AM Beverly Parks MA * Patient Health Questionnaire-9 Score Answer Date of Assessment Author 1 06/15/2025 10:49 AM Beverly Parks MA * Over the last 2 weeks, how often have you been bothered by any of the following problems? Question Answer Date of Assessment Author Feeling nervous, anxious, or on edge 0 05/22 10:50 AM Bernice Parks MA Not being able to stop or co ntrol worrying 0 06/15/2025 10:50 AM Bernice Parks M A Worrying too much about diff erent things 0 06/15/2025 10:50 AM Bernice Parks M A Trouble relaxing 0 06/15/2025 10:50 AM Bernice Parks MA Being so restless that it is hard to sit still 0 06/15/2025 10:50 AM Bernice Parks M A Becoming easily annoyed or irritable 0 05/22 10:50 AM Bernice Parks MA Feeling afraid as if somethi ng awful might happen 0 06/15/2025 10:50 AM Bernice Parks M A HANS-7 Total Score 0 06/15/2025 10:50 AM Bernice Parks MA documented as of this encounter Progress Notes * Tiffany Kent MD - 06/15/2025 10:30 AM EDT Subjective Patient ID: Edilma Méndez is a 80 y.o. female with past medical history of severe dementia, CAD, hyperlipidemia, type 2 diabetes, hx of PE and hypertension who presents for follow-up for chronic medical conditions and comprehensive annual evaluation. Pt reports doing well and that things are good at home. Daughter agrees. They agree to have pt get the flu shot today. BP's have been controlled and on the soft side. With shared decision making will stop Amlodipine 5mg today. Social History Tobacco: denied Drugs: none Alcohol: No Sexuality: Denies current sexual activity Suicide/Depression: The patient denies any present symptoms of depression or anxiety. Review of Systems Constitutional: Negative for fatigue, fever and unexpected weight change. Respiratory: Negative for cough. Cardiovascular: Negative for chest pain. Gastrointestinal: Negative for abdominal pain. Genitourinary: Negative for difficulty urinating. Current Medications[1] Allergies[2] Medical History[3] Surgical History[4] Family History[5] Objective Visit Vitals BP 100/64 (BP Location: Left arm, Patient Position: Sitting, BP Cuff Size: Adult) Pulse 74 Temp 98.9 ??F (37.2 ??C) (Oral) Resp 20 Wt 115 lb (52.2 kg) SpO2 98% BMI 23.23 kg/m?? Smoking Status Never BSA 1.47 m?? Physical Exam Constitutional: Appearance: Normal appearance. HENT: Head: Normocephalic. Right Ear: Tympanic membrane normal. Left Ear: Tympanic membrane normal. Mouth/Throat: Pharynx: Oropharynx is clear. Eyes: Pupils: Pupils are equal, round, and reactive to light. Cardiovascular: Rate and Rhythm: Normal rate and regular rhythm. Heart sounds: Normal heart sounds. Pulmonary: Effort: Pulmonary effort is normal. Breath sounds: Normal breath sounds. Abdominal: General: Abdomen is flat. Palpations: There is no mass. Tenderness: There is no abdominal tenderness. Musculoskeletal: General: Normal range of motion. Cervical back: Normal range of motion and neck supple. Lymphadenopathy: Cervical: No cervical adenopathy. Skin: General: Skin is warm and dry. Neurological: Mental Status: She is alert. Mental status is at baseline. Psychiatric: Behavior: Behavior normal. 80 y.o. female annual evaluation. Assessment & Plan Essential hypertension -Blood pressure is at goal -Continue lifestyle modifications -Continue current medications -Stop amlodipine 5 mg 06/15/25 Hyperlipidemia, unspecified hyperlipidemia type Lab Results Component Value Date CHOL 115 04/17/2024 TRIG 107 04/17/2024 TRIG 97 03/04/2023 HDL 54 04/17/2024 LDLCHOLCAL 40 04/17/2024 -continue lifestyle modification -continue atorvastatin 80 mg -ordered repeat FLP + HFP 06/15/25 Pulmonary emphysema, unspecified emphysema type ([facility]) Hx two hospitalizations for COPD exacerbation in 01/2015. She has continued SOB. No wheeze on exam. Euvolemic on exam and normal SaO2 on room air. Advised to continue Advair 500/50, restart Spiriva, albuterol prn. Type 2 diabetes mellitus without complication, with long-term current use of insulin ([facility]) Diabetes is controlled. Lab Results Component Value Date HGBA1C 6.0 (A) 06/15/2025 HGBA1C 5.9 02/21/2025 HGBA1C 5.9 07/19/2024 Lab Results Component Value Date CREATININE 0.99 05/02/2025 EGFR 54 05/02/2025 MICROALBCREU 8.0 04/17/2024 LDLCHOLCAL 40 04/17/2024 -Shahab/Arb: -Statin therapy: atorvastatin 80 mg -Diabetic eye exam: followed by Dr. Irving Palencia of [facility] -Diabetic foot exam: done 07/19/24 -Continue lifestyle modifications -Continue current medications -ordered routine labs 06/15/25 Orders: Albumin, Random Urine W/Creatinine; Future Hepatic Function Panel; Future Lipid Panel, Standard; Future Hemoglobin A1c; Future Basic Metabolic Panel; Future POCT glucose manually resulted POCT glycosylated hemoglobin (Hgb A1c) Acute non-ST elevation myocardial infarction (NSTEMI) ([facility]) -admitted 08/28/2022-09/01/2022 for NSTEMI -Underwent diagnostic catheterization which showed no obstructive disease, NSTEMI suspected to be from vasospasm. -ECHO showed EF 55 to 60%. -Started on aspirin and metoprolol. Diltiazem and benazepril discontinued given normal systolic BP on metoprolol and nitropaste. -admitted to [facility] 11/10/24 for chest pain with normal ECG, cardiac biomarkers mildly elevated but flat. -Patient followed at [facility] with Dr. Suzan Perdue DO., Note from 02/28/25 reviewed -stress test with Dr. Natividad Martel MD 02/22/25 negative EF 57% Orders: nitroglycerin (Nitrostat) 0.4 MG SL tablet; Place 1 tablet (0.4 mg) under the tongue every 5 (five)minutes if needed for chest pain. History of pulmonary embolism -unprovoked pulmonary embolism -continue Eliquis for fci anticoagulation -discuss fall prcautions Anemia, unspecified type Lab Results Component Value Date HGB 12.3 05/02/2025 HGB 12.8 11/10/2024 HGB 12.7 06/21/2024 HGB 13.0 03/22/2023 HGB 11.3 (L) 12/18/2020 HEMATOCRIT 36.2 12/18/2020 Stable the past 4 years. Thyroid nodule -FNA 11/05/2016 benign -Biopsy on 06/26/2020 with [...] nodules as detailed above. Continued surveillance recommended. -US thyroid 08/10/24 US/US thyroidIMPRESSION:Heterogeneous, multinodular thyroid gland. A 1.8 cm TR4 thyroid nodule meets criteria for biopsy. Correlation with prior biopsy results recommended to determine further managementMultiple additional subcentimeter thyroid nodules as detailed above. Continued surveillance recommended. -referred to endocrinology 10/04/24 , missed apt in Oct, given number to call for follow up 02/21/25 -despite repeated encouragement to follow-up with endocrinology, pt has failed to do so. Will repeat US 06/15/25 and pt understands risk and that one of the nodules was recommended to be biopsied to rule out neoplasm. Orders: US Thyroid; Future Severe dementia with other behavioral disturbance, unspecified dementia type (CMS/HCC) Per daughter, pt's short-term memory has worsened over time. The pt at times does not recognize herdaughter. - Pt will be needing 24 hour [...] underlying microangiopathy and generalized cerebral volume loss Encounter for immunization Orders: TDAP VACCINE 7 yrs + FLU VACCINE TRIVALENT HIGH DOSE [id number] (Fluzone) 65 yrs + Other specified health status -Next annual evaluation due after 06/15/26 -MOLST was done with [facility] on 05/02/2014. -Last Eye Exam at [facility] with Dr. Hutchison on 11/2022, will request most recent note. -has dentures -health care proxy 07/19/24 Annual Evaluation -Normal growth and development. -Anticipatory guidance discussed. -Preventative care / harm reduction discussed. Follow up in about 1 month (around 07/15/2025) for televist - HTN. I, Geovanna Leal, am serving as a scribe to document services personally performed by Dr. Rosa, based on the patient's response to questions by provider and providers statements to me. [1] Current Outpatient Medications: Acetaminophen Extra Strength 500 MG tablet, TAKE 1 OR 2 TABLETS BY MOUTH EVERY 8 HOURS NEEDED, Disp: 30 tablet, Rfl: 1 apixaban (Eliquis) 5 MG tablet, Take 5 mg by mouth 2 times daily., Disp: , Rfl: Aspirin Low Dose 81 MG EC tablet, TAKE 1 TABLET BY MOUTH EVERY MORNING, Disp: 90 tablet, Rfl: 3 atorvastatin (Lipitor) 80 MG tablet, TAKE 1 TABLET BY MOUTH AT BEDTIME, Disp: 90 tablet, Rfl: 3 Calcium + Vitamin D3 600-5 MG-MCG tablet, TAKE 1 TABLET BY MOUTH TWICE DAILY IN THE MORNING AND IN THE EVENING, Disp: 180 tablet, Rfl: 3 donepezil (Aricept) 5 MG tablet, Take 1 tablet (5 mg) by mouth at bedtime., Disp: 90 tablet, Rfl: 3 Fluticasone-Salmeterol 500-50 MCG/ACT aerosol powder , Take 1 puff by mouth 2 times daily., Disp: 30 each, Rfl: 11 isosorbide mononitrate ER (Imdur) 60 MG 24 hr tablet, Take 60 mg by mouth Once per day. Do not crush or chew., Disp: , Rfl: lidocaine (Xylocaine) 5 % ointment, apply by topical route 1 - 3 times every day to affected area(s) as needed, Disp: 50 g, Rfl: 2 loratadine (Claritin) 10 MG tablet, TAKE 1 TABLET BY MOUTH EVERY DAY NEEDED, Disp: 90 tablet, Rfl: 1 metoprolol succinate XL (Toprol-XL) 25 MG 24 hr tablet, TAKE 1 TABLET BY MOUTH EVERY MORNING, Disp:90 tablet, Rfl: 3 montelukast (Singulair) 10 MG tablet, TAKE 1 TABLET BY MOUTH EVERY EVENING, Disp: 90 tablet, Rfl: 1 Multiple Vitamins-Minerals (CertaVite/Antioxidants) tablet, TAKE 1 TABLET BY MOUTH EVERY MORNING WITH FOOD, Disp: 90 tablet, Rfl: 3 nitroglycerin (Nitrostat) 0.4 MG SL tablet, Place 1 tablet (0.4 mg) under the tongue every 5 (five)minutes if needed for chest pain., Disp: 30 tablet, Rfl: 0 omeprazole (PriLOSEC) [address] capsule, TAKE 1 CAPSULE BY MOUTH EVERY DAY BEFORE A MEAL, Disp: 90 capsule, Rfl: 3 sertraline (Zoloft) 25 MG tablet, Take by mouth Once per day. Submaranian, Disp: , Rfl: traZODone (Desyrel) 100 MG tablet, take 2-3 tablets by oral route every day at bedtime, Disp: 90 tablet, Rfl: 1 Umeclidinium Vaughan (Incruse Ellipta) 62.5 MCG/ACT aerosol powder , Inhale 1 Act (62.5 mcg) Once per day., Disp: 30 each, Rfl: 11 [2] Allergies Allergen Reactions Oxycodone [3] Past Medical History: Diagnosis Date Acute non-ST elevation myocardial infarction (NSTEMI) ([facility]) 03/03/2022 -admitted 08/28/2022-09/01/2022 for NSTEMI -Underwent diagnostic catheterization which showed no obstructive disease, NSTEMI suspected to be from vasospasm. - ECHO showed EF 55 to 60%. -Started on aspirin and metoprolol. Diltiazem and benazepril discontinued given normal systolic BP on metoprolol andnitropaste. - admitted to [facility] 11/10/24 for chest pain with normal ECG, cardiac Chronic obstructive lung disease ([facility]) 11/16/2012 Hx two hospitalizations for COPD exacerbation in 01/2015. She has continued SOB. No wheeze on exam. Euvolemic on exam and normal SaO2 on room air. Advised to continue Advair 500/50, restart Spiriva, albuterol prn. Referral to pulmonology. She agrees with the plan. Dementia ([facility]) 03/03/2022 Per daughter, pt's short-term memory has worsened over time. The pt at times does not recognize anirudhaughter. - Pt will be needing 24 hour supervision and can't go out on her own. - I recommended sheget an ID bracelet for safety purposes. - MMS: 09/18. Its complicated by the fact that she is illiterate. Nevertheless in the setting of family hx she likely has moderate to severe dementia. - Diabetes mellitus type 2, uncomplicated ([facility]) 05/18/2012 Diabetes is controlled. Lab Results Component Value Date HGBA1C 5.9 07/19/2024 HGBA1C 5.9 04/17/2024 HGBA1C 5.9 (H) 03/04/2023 Lab Results Component Value Date CREATININE 0.86 06/21/2024 EGFR >6006/21/2024 MICROALBCREU 8.0 04/17/2024 LDLCHOLCAL 4 Essential hypertension 11/16/2012 -Blood pressure is at goal -Continue lifestyle modifications -Continue current medications Hyperlipidemia 11/16/2012 Lab Results Component Value Date CHOL 115 04/17/2024 TRIG 107 04/17/2024 TRIG 97 03/04/2023 HDL 54 04/17/2024 LDLCHOLCAL 40 04/17/2024 -continue lifestyle modification -continue atorvastatin 80 mg Right-sided low back pain with right-sided sciatica 06/07/2023 Referral done to Orthopedics 06/09/2023. XR Lumbosacral Spine 06/09/23 IMPRESSION: Multilevel degenerative disc disease, most prominent at L4-L5 and L5-S1. Severe dementia with other behavioral disturbance, unspecified dementia type ([facility]) 04/13/2024 Per daughter, pt's short-term memory has worsened over time. The pt at times does not recognize herdaughter. - Pt will be needing 24 hour supervision and can't go out on her own. - I recommended sheget an ID bracelet for safety purposes. - MMS: 09/18. Its complicated by the fact that she is illiterate. Nevertheless in the setting of family hx she likely has moderate to severe dementia. - Thyroid nodule 03/03/2022 -FNA 11/05/2016 benign -Biopsy on 06/26/[address] Hall -repeat US 10/28/2021 recommending follow up2-3 years -ordered repeat thyroid US 07/19/24 -US reproted 10/04/23 US/US thyroid IMPRESSION: Heterogeneous, multinodular thyroid gland. A 1.8 cm TR 4 thyroid nodule meets criteria for biopsy. Correlation with prior biopsy results recommended to determine further management. Multiple additiona [4] History reviewed. No pertinent surgical history. [5] No family history on file. documented in this encounter Miscellaneous Notes * Assessment & Plan Note - Tiffany Kent MD - 06/15/2025 10:30 AM EDT Associated Problem(s): Severe dementia with other behavioral disturbance, unspecified dementia type(CMS/HCC) (HCC) Per daughter, pt's short-term memory has worsened over time. The pt at times does not recognize herdaughter. - Pt will be needing 24 hour [...] underlying microangiopathy and generalized cerebral volume loss * Assessment & Plan Note - Tiffany Kent MD - 06/15/2025 10:30 AM EDT Associated Problem(s): Thyroid nodule -FNA 11/05/2016 benign -Biopsy on 06/26/2020 with [...] nodules as detailed above. Continued surveillance recommended. -US thyroid 08/10/24 US/US thyroidIMPRESSION:Heterogeneous, multinodular thyroid gland. A 1.8 cm TR4 thyroid nodule meets criteria for biopsy. Correlation with prior biopsy results recommended to determine further managementMultiple additional subcentimeter thyroid nodules as detailed above. Continued surveillance recommended. -referred to endocrinology 10/04/24 , missed apt in Oct, given number to call for follow up 02/21/25 -despite repeated encouragement to follow-up with endocrinology, pt has failed to do so. Will repeat US 06/15/25 and pt understands risk and that one of the nodules was recommended to be biopsied to rule out neoplasm. Orders: US Thyroid; Future * Assessment & Plan Note - Tiffany Kent MD - 06/15/2025 10:30 AM EDT Associated Problem(s): Type 2 diabetes mellitus with stage 3b chronic kidney disease, without long-term current use of insulin (HCC) Diabetes is controlled. Lab Results Component Value Date HGBA1C 6.0 (A) 06/15/2025 HGBA1C 5.9 02/21/2025 HGBA1C 5.9 07/19/2024 Lab Results Component Value Date CREATININE 0.99 05/02/2025 EGFR 54 05/02/2025 MICROALBCREU 8.0 04/17/2024 LDLCHOLCAL 40 04/17/2024 -Shahab/Arb: -Statin therapy: atorvastatin 80 mg -Diabetic eye exam: followed by Dr. Irving Palencia of [facility] -Diabetic foot exam: done 07/19/24 -Continue lifestyle modifications -Continue current medications -ordered routine labs 06/15/25 Orders: Albumin, Random Urine W/Creatinine; Future Hepatic Function Panel; Future Lipid Panel, Standard; Future Hemoglobin A1c; Future Basic Metabolic Panel; Future POCT glucose manually resulted POCT glycosylated hemoglobin (Hgb A1c) * Assessment & Plan Note - Tiffany Kent MD - 06/15/2025 10:30 AM EDT Associated Problem(s): Essential hypertension -Blood pressure is at goal -Continue lifestyle modifications -Continue current medications -Stop amlodipine 5 mg 06/15/25 * Assessment & Plan Note - Tiffany Kent MD - 06/15/2025 10:30 AM EDT Associated Problem(s): Acute non-ST elevation myocardial infarction (NSTEMI) (HCC) -admitted 08/28/2022-09/01/2022 for NSTEMI -Underwent diagnostic catheterization which showed no obstructive disease, NSTEMI suspected to be from vasospasm. -ECHO showed EF 55 to 60%. -Started on aspirin and metoprolol. Diltiazem and benazepril discontinued given normal systolic BP on metoprolol and nitropaste. -admitted to [facility] 11/10/24 for chest pain with normal ECG, cardiac biomarkers mildly elevated but flat. -Patient followed at [facility] with Dr. Suzan Perdue DO., Note from 02/28/25 reviewed -stress test with Dr. Natividad Martel MD 02/22/25 negative EF 57% Orders: nitroglycerin (Nitrostat) 0.4 MG SL tablet; Place 1 tablet (0.4 mg) under the tongue every 5 (five)minutes if needed for chest pain. * Assessment & Plan Note - Tiffany Kent MD - 06/15/2025 10:30 AM EDT Associated Problem(s): Hyperlipidemia Lab Results Component Value Date CHOL 115 04/17/2024 TRIG 107 04/17/2024 TRIG 97 03/04/2023 HDL 54 04/17/2024 LDLCHOLCAL 40 04/17/2024 -continue lifestyle modification -continue atorvastatin 80 mg -ordered repeat FLP + HFP 06/15/25 * Assessment & Plan Note - Tiffany Kent MD - 06/15/2025 10:30 AM EDT Associated Problem(s): History of pulmonary embolism -unprovoked pulmonary embolism -continue Eliquis for fci anticoagulation -discuss fall prcautions * Assessment & Plan Note - Tiffany Kent MD - 06/15/2025 10:30 AM EDT Associated Problem(s): Anemia Lab Results Component Value Date HGB 12.3 05/02/2025 HGB 12.8 11/10/2024 HGB 12.7 06/21/2024 HGB 13.0 03/22/2023 HGB 11.3 (L) 12/18/2020 HEMATOCRIT 36.2 12/18/2020 Stable the past 4 years. * Assessment & Plan Note - Tiffany Kent MD - 06/15/2025 10:30 AM EDT Associated Problem(s): Chronic obstructive lung disease (HCC) Hx two hospitalizations for COPD exacerbation in 01/2015. She has continued SOB. No wheeze on exam. Euvolemic on exam and normal SaO2 on room air. Advised to continue Advair 500/50, restart Spiriva, albuterol prn. * Assessment & Plan Note - Tiffany Kent MD - 06/15/2025 10:30 AM EDT Associated Problem(s): Other specified health status -Next annual evaluation due after 06/15/26 -MOLST was done with [facility] on 05/02/2014. -Last Eye Exam at [facility] with Dr. Hutchison on 11/2022, will request most recent note. -has dentures -health care proxy 07/19/24 documented in this encounter Plan of Treatment Scheduled Orders Name Type Priority Associated Diagnoses Orde r Schedule Albumin, Random Urine W/Creatinine Lab Routine Type 2 diabetes mellitus without complication, with long-term current use of insulin (CMS/HCC) Expected: 06/15/2025 (Approximate), Expires: 06/15/2026 Hepatic Function Panel Lab Routine Type 2 diabetes mellitus without complication, with long-term current use of insulin ([facility]) Expected: 06/15/2025 (Approximate), Expires: 06/15/2026 Lipid Panel, Standard Lab Routine Type 2 diabetes mellitus without complication, with long-term current use of insulin ([facility]) Expected: 06/15/2025 (Approximate), Expires: 06/15/2026 Hemoglobin A1c Lab Routine Type 2 diabetes mellitus without complication, with long-term current use of insulin ([facility] H[facility]) Expected: 06/15/2025 (Approximate), Expires: 06/15/2026 Basic Metabolic Panel Lab Routine Type 2 diabetes mellitus without complication, with long-term current use of insulin ([facility]) Expected: 06/15/2025 (Approximate), Expires: 06/15/2026 documented as of this encounter Goals Goal Patient Goal Type Associated Problems Recent Progress Patient-Stated? Author Help patients manage their type 2 diabetes Care Plan Help patients manage their type 2 diabetes No HernandezKosta bennett MA Weekly blood pressure task Care Plan Weekly blood pressure task No Hernandez Louyomy MA Help patients manage their type 2 diabetes Care Plan Help patients manage their type 2 diabetes No HernandezAmirauyomy MA Patient has chronic kidney disease Care Plan Patient has chronic kidney disease No HernandezAmira bennettuymason MA Weekly blood pressure task Care Plan Weekly blood pressure task No Hernandez Louyomy, [place] Patient has chronic kidney disease Care Plan Patient has chronic kidney disease No HernandezAmira bennettuyomy MA Weekly blood pressure task Care Plan Weekly blood pressure task No Ang Ulloa MD Weekly blood pressure task Care Plan Weekly blood pressure task No Ang Ulloa MD Patient has chronic kidney disease Care Plan Patient has chronic kidney disease No Ang Ulloa MD Patient has chronic kidney disease Care Plan Patient has chronic kidney disease No Ang Ulloa MD Weekly blood pressure task Care Plan Weekly blood pressure task No Ynes Morrissey Weekly blood pressure task Care Plan Weekly blood pressure task No Ynes Morrissey Patient has chronic kidney disease Care Plan Patient has chronic kidney disease No Ynes Morrissey Patient has chronic kidney disease Care Plan Patient has chronic kidney disease No Ynes Morrissey Weekly blood pressure task Care Plan Weekly blood pressure task No Sharmila Sr RN Weekly blood pressure task Care Plan Weekly blood pressure task No Sharmila Sr RN Patient has chronic kidney disease Care Plan Patient has chronic kidney disease No Sharmila Sr RN Patient has chronic kidney disease Care Plan Patient has chronic kidney disease No Sharmila Sr RN Weekly blood pressure task Care Plan Weekly blood pressure task No Tiffany Kent MD Weekly blood pressure task Care Plan Weekly blood pressure task No Tiffany Kent MD Patient has chronic kidney disease Care Plan Patient has chronic kidney disease No Tiffany Kent MD Patient has chronic kidney disease Care Plan Patient has chronic kidney disease No Tiffany Kent MD documented as of this encounter Procedures Procedure Name Priority Date/Time Associated Diagnosis Comments US THYROID Routine 08/09/2025 11:46 AM EST Thyroid nodule POCT GLUCOSE Routine 06/15/2025 10:35 AM EDT Type 2 diabetes mellitus without complication, with long-term current use of insulin ([facility]) POCT GLYCOSYLATED HEMOGLOBIN (HGB A1C) Routine 06/15/2025 10:34 AM EDT Type 2 diabetes mellitus without complication, with long-term current use of insulin ([facility]) documented in this encounter Results * US Thyroid (08/09/2025 11:46 AM EST) Anatomical Region Laterality Modality Head, Neck Ultrasound 08/09/2025 11:4 6 AM EST Narrative 08/09/2025 2:21 PM EST [place] [id number] Ultrasound Report Signed Patient: Edilma Méndez MR#: [id number] : 1945 Acct:[id number] Age/Sex: 80 / F ADM Date: 08/09/25 Loc: HO.US Attending Dr: Tiffany Kent MD Ordering Physician: Tiffany Kent MD Date of Service: 08/09/25 Procedure(s): US thyroid Accession Number(s): [id number] cc: Tiffany Kent MD Reason for Exam: survellance of thryoid nodules EXAMINATION: US THYROID CLINICAL INFORMATION: Surveillance, thyroid nodules. COMPARISON: August 10, 2024. TECHNIQUE: Linear transducer grayscale and color Doppler examination with attention to the region of the thyroid. FINDINGS: SIZE: Measurements of the thyroid lobes and nodules are given in sagittal, anteroposterior and transverse dimensions respectively. Right Thyroid Lobe: 3.2 x 1.4. x 1.1 cm, volume 2.4 mL. Previous: 4.1 x 1.3 x 1.1 cm left Volume: 2.8 cc. Parenchyma: The gland echotexture is heterogeneous. Thyroid vascularity is normal. Left Thyroid Lobe: 3.5 x 1.2 x 1.3 cm, volume 2.8 mL Previous: 3.9 x 1.4 x 1.2 cm, volume: 3.5 cc.. Parenchyma: The gland echotexture is heterogeneous. Thyroid vascularity is increased. Isthmus: 0.2 cm in maximum AP dimension. Previous: 0.2 cm Estimated total number of nodules greater than or equal to 1 cm: 1. Broomcorn Scraper nodules are described as follows: 1. Location: Lower pole, left lobe. Size: 1.7 x 1.6 x 1.1 cm, volume 1.6 mL. Previous: 1.8 x 1.5 x 1.5 cm, volume: 2.16 cc. Nodule characteristics: Composition: Solid/almost completely solid (2). Echogenicity: Isoechoic (1). Shape: Taller than wide (3). Margins: Smooth (0). Echogenic Foci: None (0). ACR TI-RADS total points: 6 ACR TI-RADS category: 4 2. Location: [Upper right lobe. Size: 0.3 x 0.14 x 0.2 cm, volume 0.004 mL. Nodule characteristics: Composition: Solid/almost completely solid (2). Echogenicity: Hypoechoic (2). Shape: Not taller than wide (0). Margins: Smooth (0). Echogenic Foci: None (0). ACR TI-RADS total points: 4 ACR TI-RADS category: 4 3. Location: Upper, right lobe. Size: 0.7 x 0.5 x 0.4 cm, volume 0.0 65 mL. Previous: 0.7 x 0.3 x 0.5 cm, volume: 0.07 cc. Nodule characteristics: Composition: Undetermined (2) Echogenicity: Undetermined (1) Shape: Taller than wide (3). Margins: Smooth (0). Echogenic Foci: None (0). ACR TI-RADS total points: 6 ACR TI-RADS category: 4 4. Location: Mid right lobe. Size: 0.7 x 0.5 x 0.4 cm, volume 0.076 mL. Previous: 0.7 x 0.3 x 0.6 cm, volume: 0.0 cm cyst. Nodule characteristics: Composition: Solid (2). Echogenicity: Isoechoic (1). Shape: Taller than wide (3). Margins: Smooth (0). Echogenic Foci: None (0). ACR TI-RADS total points: 6 ACR TI-RADS category: 4 5. Location: [Upper left lobe. Size: 0.4 x 0.3 x 0.5 cm, volume 0.032 mL. Nodule characteristics: Composition: Mixed cystic and solid (1). Echogenicity: Undetermined (1) Shape: Not taller than wide (0). Margins: Smooth (0). Echogenic Foci: None (0). ACR TI-RADS total points: 2 ACR TI-RADS category: 2 NODES: No lymphadenopathy is seen in the tissue surrounding the thyroid gland. US/US thyroid IMPRESSION: ACR TI-RADS Category 3 and 4 ACR TI-RADS RECOMMENDATION REFERENCE: Ultrasound-guided fine-needle aspiration, followup ultrasound, no further follow up. * TR1 (0 point) and TR2 (2 points): No FNA or follow up. * TR3 (3 points): FNA if more than or equal to 2.5 cm in maximum dimension, followup ultrasound in 1, 3 and 5 years if 1.5 to 2.4 cm in maximum dimension. * TR4 (4-6 points): FNA if more than or equal to 1.5 cm in maximum dimension, followup ultrasound in 1, 2, 3 and 5 years if 1 to 1.4 cm in maximum dimension. * TR5 (more than or equal to 7 points): FNA if more than or equal to 1 cm in maximum dimension, followup ultrasound every year for 5 years if 0.5 to 0.9 cm in maximum dimension. * TR3, TR4 or TR5 nodules that are below the size threshold for followup receive no follow up. Electronically signed by: Buster Baez MD 08/09/2025 02:18 PM EST RP Dictated By: Buster Richards MD Signed By: <Electronically signed by Buster Farmer MD in [place]> 08/09/25 1418 DD/ 1146 TD/TT: 08/09/25 1158 Physician/Internist: Procedure Note Donotuseinterpreter, Image - 08/09/2025 [place] [id number] Ultrasound Report Signed Patient: Esther Méndez#: [id number] : 5Acct:[id number] Age/Sex: 80 / FADM Date: 08/09/25 Loc: HO.US Attending Dr: Tiffany Kent MD Ordering Physician: Tiffany Kent MD Date of Service: 08/09/25 Procedure(s): US thyroid Accession Number(s): [id number] cc: Tiffany Kent MD Reason for Exam: survellance of thryoid nodules EXAMINATION: US THYROID CLINICAL INFORMATION: Surveillance, thyroid nodules. COMPARISON: August 10, 2024. TECHNIQUE: Linear transducer grayscale and color Doppler examination with attention to the region of the thyroid. FINDINGS: SIZE: Measurements of the thyroid lobes and nodules are given in sagittal, anteroposterior and transverse dimensions respectively. Right Thyroid Lobe: 3.2 x 1.4. x 1.1 cm, volume 2.4 mL. Previous: 4.1 x 1.3 x 1.1 cm left Volume: 2.8 cc. Parenchyma: The gland echotexture is heterogeneous. Thyroid vascularity is normal. Left Thyroid Lobe: 3.5 x 1.2 x 1.3 cm, volume 2.8 mL Previous: 3.9 x 1.4 x 1.2 cm, volume: 3.5 cc.. Parenchyma: The gland echotexture is heterogeneous. Thyroid vascularity is increased. Isthmus: 0.2 cm in maximum AP dimension. Previous: 0.2 cm Estimated total number of nodules greater than or equal to 1 cm: 1. Broomcorn Scraper nodules are described as follows: 1. Location: Lower pole, left lobe. Size: 1.7 x 1.6 x 1.1 cm, volume 1.6 mL. Previous: 1.8 x 1.5 x 1.5 cm, volume: 2.16 cc. Nodule characteristics: Composition: Solid/almost completely solid (2). Echogenicity: Isoechoic (1). Shape: Taller than wide (3). Margins: Smooth (0). Echogenic Foci: None (0). ACR TI-RADS total points: 6 ACR TI-RADS category: 4 2. Location: [Upper right lobe. Size: 0.3 x 0.14 x 0.2 cm, volume 0.004 mL. Nodule characteristics: Composition: Solid/almost completely solid (2). Echogenicity: Hypoechoic (2). Shape: Not taller than wide (0). Margins: Smooth (0). Echogenic Foci: None (0). ACR TI-RADS total points: 4 ACR TI-RADS category: 4 3. Location: Upper, right lobe. Size: 0.7 x 0.5 x 0.4 cm, volume 0.0 65 mL. Previous: 0.7 x 0.3 x 0.5 cm, volume: 0.07 cc. Nodule characteristics: Composition: Undetermined (2) Echogenicity: Undetermined (1) Shape: Taller than wide (3). Margins: Smooth (0). Echogenic Foci: None (0). ACR TI-RADS total points: 6 ACR TI-RADS category: 4 4. Location: Mid right lobe. Size: 0.7 x 0.5 x 0.4 cm, volume 0.076 mL. Previous: 0.7 x 0.3 x 0.6 cm, volume: 0.0 cm cyst. Nodule characteristics: Composition: Solid (2). Echogenicity: Isoechoic (1). Shape: Taller than wide (3). Margins: Smooth (0). Echogenic Foci: None (0). ACR TI-RADS total points: 6 ACR TI-RADS category: 4 5. Location: [Upper left lobe. Size: 0.4 x 0.3 x 0.5 cm, volume 0.032 mL. Nodule characteristics: Composition: Mixed cystic and solid (1). Echogenicity: Undetermined (1) Shape: Not taller than wide (0). Margins: Smooth (0). Echogenic Foci: None (0). ACR TI-RADS total points: 2 ACR TI-RADS category: 2 NODES: No lymphadenopathy is seen in the tissue surrounding the thyroid gland. US/US thyroid IMPRESSION: ACR TI-RADS Category 3 and 4 ACR TI-RADS RECOMMENDATION REFERENCE: Ultrasound-guided fine-needle aspiration, followup ultrasound, no further follow up. * TR1 (0 point) and TR2 (2 points): No FNA or follow up. * TR3 (3 points): FNA if more than or equal to 2.5 cm in maximum dimension, followup ultrasound in 1, 3 and 5 years if 1.5 to 2.4 cm in maximum dimension. * TR4 (4-6 points): FNA if more than or equal to 1.5 cm in maximum dimension, followup ultrasound in 1, 2, 3 and 5 years if 1 to 1.4 cm in maximum dimension. * TR5 (more than or equal to 7 points): FNA if more than or equal to 1 cm in maximum dimension, followup ultrasound every year for 5 years if 0.5 to 0.9 cm in maximum dimension. * TR3, TR4 or TR5 nodules that are below the size threshold for followup receive no follow up. Electronically signed by: Buster Baez MD 08/09/2025 02:18 PM [facility] Dictated By: Buster Richards MD Signed By: <Electronically signed by Buster Farmer MDin OV> 08/09/25 1418 DD/ 1146 TD/TT: 08/09/25 1158 Physician/Internist: Tiffany Kent MD IMG US PROCEDURES Final Re sult * POCT glucose manually resulted (06/15/2025 10:35 AM EDT) Glucose Blood, POC 105 60 - 200 mg/dL QC Media Lot # [id number] Lot# Expiration Date ,[id number] Blood Capillary blood specimen / Unknown 06/15/2025 10:35 AM EDT Tiffany Kent MD POINT OF CARE TEST ENTER/E DIT ORDERABLES Final Result * (ABNORMAL) POCT glycosylated hemoglobin (Hgb A1c) (06/15/2025 10:34 AM EDT) Hemoglobin A1C 6.0(A) 4.0 - 5.7 % QC Media Lot # [id number] Lot# Expiration Date [id number] Blood Capillary blood specimen / Unknown 06/15/2025 10:34 AM EDT Tiffany Kent MD POINT OF CARE TEST ENTER/E DIT ORDERABLES Final Result documented in this encounter Visit Diagnoses Diagnosis Type 2 diabetes mellitus without complication, with long-term current use of insulin ([facility])- Primary Essential hypertension Unspecified essential hypertension Hyperlipidemia, unspecified hyperlipidemia type Pulmonary emphysema, unspecified emphysema type Acute non-ST elevation myocardial infarction (NSTEMI) ([facility]) History of pulmonary embolism Personal history of venous thrombosis and embolism Anemia, unspecified type Thyroid nodule Nontoxic uninodular goiter Severe dementia with other behavioral disturbance, unspecified dementia type (CMS/HCC) ([facility]) Encounter for immunization Other specified health status documented in this encounter Additional Health Concerns Active Problems Noted Date Diagnosed Date Help patients manage their type 2 diabetes 08/01 Weekly blood pressure task 08/01/2025 Help patients manage their type 2 diabetes 08/01 Patient has chronic kidney disease 08/01/2025 Weekly blood pressure task 08/01/2025 Patient has chronic kidney disease 08/01/2025 Weekly blood pressure task 08/01/2025 Weekly blood pressure task 08/01/2025 Patient has chronic kidney disease 08/01/2025 Patient has chronic kidney disease 08/01/2025 Weekly blood pressure task 08/06/2025 Weekly blood pressure task 08/06/2025 Patient has chronic kidney disease 08/06/2025 Patient has chronic kidney disease 08/06/2025 Weekly blood pressure task 08/07/2025 Weekly blood pressure task 08/07/2025 Patient has chronic kidney disease 08/07/2025 Patient has chronic kidney disease 08/07/2025 Weekly blood pressure task 08/10/2025 Weekly blood pressure task 08/10/2025 Patient has chronic kidney disease 08/10/2025 Patient has chronic kidney disease 08/10/2025 Assessment Noted Time PHQ-9 Depression Total Score: 1 06/15/20 10:49 AM EDT documented as of this encounter Care Teams Duct Layer Supervisor Relationship Specialty Start Date End Date Tiffany Kent MD [address] [place] [id number] PCP - General Family Medicine 09/27/13 Cy Perdue MD [address] [place] [id number] Cardiology 12/12/24 Dr. Phelps Psychiatry 02/21/25 documented as of this encounter
--- NOTE | ~2025-08-10 | CT_ITS ---
EXAMINATION: CT HEAD WITHOUT IV CONTRAST HISTORY: headache/facial pain. TECHNIQUE: Unenhanced helical CT of the head was performed per standard departmental protocol. Coronal and sagittal reformats of the head were also evaluated. One or more of the following techniques was used for dose reduction: Automated exposure control, adjustment of the mA and/or kV according to patient size, use of iterative reconstruction technique. DLP: 556 mGy-cm COMPARISON: Comparison is made with the prior examination dated 06/21/2024. FINDINGS: BRAIN: There is mild prominence of the ventricular system and cortical sulci, consistent with atrophy. Scattered and subcortical white matter hypodensities are noted which are nonspecific, but often seen in the setting of small vessel ischemic disease. There is no mass effect or midline shift. No intra- or extra-axial fluid collections are identified. SINUSES: The visualized paranasal sinuses are clear. The mastoid air cells and middle ear cavities are well pneumatized. ORBITS: The visualized orbits are unremarkable. BONES/SOFT TISSUES: The extracranial soft tissues are unremarkable. The calvarium is intact. No suspicious lytic or sclerotic lesions. CT/CT head/brain wo IV con IMPRESSION: No acute intracranial abnormality. Electronically signed by: Gary Hartman MD 08/10/2025 12:09 PM [facility]
--- NOTE | ~2025-08-10 | XR_ITS ---
EXAMINATION: XR CHEST 2 VIEWS HISTORY: chest pain COMPARISON: Comparison is made with the prior examination dated 08/05/2025. FINDINGS: PA and lateral views of the chest are submitted. There are low lung volumes. Again seen is mild interstitial prominence at the bases. There is no focal airspace opacity. There is no pleural effusion, pneumothorax, or pulmonary vascular congestion. The heart is normal in size. There is degenerative disc disease of the spine. There are surgical clips in the right upper quadrant. XR/XR chest 2V IMPRESSION: No acute cardiopulmonary abnormality. Electronically signed by: Gary Hartman MD 08/10/2025 11:04 AM [facility]
[2025-08-10 10:05] VITALS: BP 141/77; PULSE 71; RESP 18; TEMP 36.6; O2SAT 95; BMI 23.5
--- NOTE | 2025-08-10 10:10 | ECG_ITS ---
Test Reason : cp Blood Pressure : */* mmHG Vent. Rate : 70 BPM Atrial Rate : 70 BPM P-R Int : 144 ms QRS Dur : 64 ms QT Int : 384 ms P-R-T Axes : 37 -5 14 degrees QTcB Int : 414 ms Normal sinus rhythm Normal ECG When compared with ECG of 05-Aug-2025 17:51, Premature supraventricular complexes are no longer Present Referred By: Jed Grissom Electronically Signed By: RAGHU MULLINS
--- NOTE | 2025-08-10 10:11 | ED.GENADULT ---
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 She was evaluated here on 08/05/2025 for diarrhea, headaches, diffuse abdominal tenderness and body aches. She states none of this was accurate she states she only had a headache. She had labs which were reassuring, negative viral panel, CT scan of abdomen and pelvis that showed no acute findings. She has a repeat visit to the ED with complaint of persistent left-sided headache that was not related to fever, upper respiratory infection, trauma, dental work. She states the pain is constant and will not go away, it does not respond to Tylenol. She denies any vision changes, vomiting, nausea, neck pain. She states she has never had this before. Her spouse is at the bedside states she has not been able to sleep MD complaint: Headache Onset (ago): day(s) (5 days) Location: head Severity: severe Quality: aching and constant Pain Consistency: constant Relieving factors: none Exacerbating factors: none Associated symptoms: denies other symptoms Treatments prior to arrival: none Related Data Home Medications ?Medication ?Instructions ?Recorded ?Confirmed benazepril 10 mg tablet 1 tab PO QAM 11/20/20 08/27/22 montelukast 10 mg tablet 1 tab PO BEDTIME 11/20/20 08/27/22 sertraline 100 mg tablet 200 mg PO DAILY 11/20/20 08/27/22 calcium 600 mg (as 1 tab PO BID 08/27/22 08/27/22 carbonate)-vitamin D3 5 mcg (200 unit) tablet fluticasone 500 mcg-salmeterol 50 1 puff inhalation BID 08/27/22 08/27/22 mcg/dose blistr powdr for inhalation fluticasone propionate 50 1 spray intranasal DAILY PRN 08/27/22 08/27/22 mcg/actuation nasal Allergy Symptoms spray,suspension isosorbide mononitrate 60 mg 1 tab PO DAILY 08/27/22 08/27/22 tablet,extended release 24 hr multivitamin-ferrous 1 tab PO DAILY 08/27/22 08/27/22 fumarate-folic acid 18 mg-400 mcg tablet (Certavite-Antioxidant) omeprazole 20 mg capsule,delayed 1 cap PO DAILY 08/27/22 08/27/22 release trazodone 100 mg tablet 100 mg PO BEDTIME PRN Insomnia 08/27/22 08/27/22 trazodone 100 mg tablet 200 mg PO BEDTIME 08/27/22 08/27/22 umeclidinium 62.5 mcg/actuation 1 puff inhalation DAILY 08/27/22 08/27/22 blister powder for inhalation (Incruse Ellipta) Previous Rx's ?Medication ?Instructions ?Recorded atorvastatin 80 mg tablet 80 mg PO BEDTIME #30 tabs 05/12/21 acetaminophen 500 mg tablet 500 mg PO Q6H PRN fever or pain 04/22/22 (Tylenol Extra Strength) #14 tabs cyclobenzaprine 5 mg tablet 5 mg PO Q8H PRN pain (scale score 04/22/22 7-10) 5 days #14 tabs metoclopramide HCl 5 mg tablet 5 mg PO Q6H PRN nausea and 08/06/22 (Reglan) vomiting #10 tabs aspirin 81 mg chewable tablet 81 mg PO DAILY #1 tab 08/28/22 heparin (porcine) 25,000 unit/250 25,000 unit (250 mL) continuous IV 08/28/22 mL in 0.45 % sodium chloride IV infusion .Q0M #6,000 mL soln heparin (porcine) 5,000 unit/mL 2,100 unit (0.42 mL) IVPUSH 08/28/22 injection solution PROTOCOL BOLUS PRN 40 Unit/Kg - Heparin Protocol #1 mL heparin (porcine) 5,000 unit/mL 4,100 unit (0.82 mL) IVPUSH 08/28/22 injection solution PROTOCOL BOLUS PRN 80 Unit/Kg - Heparin Protocol #1 mL metoprolol tartrate 25 mg tablet 12.5 mg (1/2 x 25 mg) PO Q6H #1 tab 08/28/22 morphine 4 mg/mL intravenous 2 mg IVPUSH Q4H PRN Pain, Severe 08/28/22 syringe (Pain Scale 7-10) #10 mL ondansetron HCl (PF) 4 mg/2 mL 4 mg (2 mL) IVPUSH Q8H PRN Nausea 08/28/22 injection solution And Vomiting #10 mL ondansetron 4 mg disintegrating 4 mg PO Q8H PRN nausea and 11/27/22 tablet vomiting #10 tabs acetaminophen 500 mg tablet 500 mg PO Q6H PRN fever or pain 12/30/22 (Tylenol Extra Strength) #14 tabs cyclobenzaprine 5 mg tablet 5 mg PO Q8H PRN pain (scale score 12/30/22 7-10) 5 days #14 tabs lidocaine 5 % topical patch 1 patch topical DAILY PRN pain #30 12/30/22 (Lidoderm) ea naproxen 500 mg tablet 500 mg PO BID PRN pain 7 days #20 12/30/22 tabs benzonatate 100 mg capsule 100 mg PO TID PRN cough 5 days #15 02/10/23 caps doxycycline hyclate 100 mg tablet 100 mg PO Q12H 7 days #14 tabs 02/10/23 acetaminophen 500 mg tablet 500 mg PO Q6H PRN fever or pain 03/22/23 (Tylenol Extra Strength) #14 tabs cyclobenzaprine 5 mg tablet 5 mg PO Q8H PRN pain (scale score 03/22/23 7-10) 5 days #14 tabs lidocaine 5 % topical patch 1 patch topical DAILY PRN pain #30 03/22/23 (Lidoderm) ea cefuroxime axetil 250 mg tablet 250 mg PO BID 7 days #14 tabs 03/24/23 tramadol 50 mg tablet 50 mg PO BID PRN pain #6 tabs 05/12/23 acetaminophen 325 mg capsule 325 mg PO Q4H PRN pain #30 caps 05/24/24 (Tylenol) lidocaine 5 % topical patch 1 patch topical DAILY PRN pain #15 05/24/24 ea methocarbamol 750 mg tablet 750 mg PO BEDTIME PRN pain #7 tabs 09/01/24 tramadol 50 mg tablet 50 mg PO BID PRN pain #7 tabs 05/02/25 meclizine 25 mg tablet 25 mg PO BID PRN dizziness #10 tabs 06/23/25 sucralfate 100 mg/mL oral 10 ml PO QID PRN nausea #200 mL 10/04/25 suspension (Carafate) lidocaine 5 % topical patch 1 patch topical DAILY #15 ea 08/05/25 loperamide 2 mg capsule (Imodium 2 mg PO Q6H PRN loose stool #20 08/05/25 A-D) caps ondansetron 4 mg disintegrating 4 mg PO Q8H PRN nausea and 08/05/25 tablet vomiting #14 tabs cyclobenzaprine 10 mg tablet 5 mg (1/2 x 10 mg) PO TID PRN 08/10/25 muscle spasm #14 tabs Allergies Allergy/AdvReac Type Severity Reaction Status Date / Time No Known Allergies Allergy Verified 08/10/25 10:07 Review of Systems Review of Systems: Constitutional : No Fever, No Chills, No Fatigue ENT/Mouth : No sore throat, No Rhinorrhea Eyes: No Eye Pain, No Swelling, No Redness Cardiovascular : No Chest Pain, No SOB, No Dyspnea on Exertion Respiratory : No Cough, No Sputum Gastrointestinal : No Nausea, No Vomiting, No Diarrhea, No abdominal Pain Genitourinary : No Dysuria, No Urinary Frequency, No Hematuria, Musculoskeletal : No joint pain, No Myalgias, No Joint Swelling Skin : No Skin Lesions, No rash Neuro : No Weakness, No Numbness, No Dizziness, positive Headache Psych : No Anxiety/Panic, No Depression Heme/Lymph: No Bruising, No Bleeding,No Lymphadenopathy Endocrine : No Polyuria, No Polydipsia All other systems reviewed and are negative [facility] Past Medical History Attestation statement: The following information was validated with the patient. Source: old records reviewed Medical History Multinodular goiter (nontoxic) Pulmonary embolism Asthma Pancreatitis Diabetes Hypertension High cholesterol GERD (gastroesophageal reflux disease) Aortic insufficiency Depression NSTEMI (non-ST elevated myocardial infarction) Surgical History No history of previous surgery Family History Family History Father Hypertension Heart disease Mother Hypertension Heart disease Social History Social History Household Members: Family and Other Household Members Other:: daughter is guest advisor Housing: Apartment Do you presently have visiting nurse or other home services: No Alcohol intake: never Patient Tobacco Use Status: Never used Tobacco Second Hand Smoke Exposure: No Advance Directives: No Advance Directives Information Provided: Yes service: No Current occupational status: unemployed and disabled Physical Exam ED Vital Signs: Vital Signs - 24 hr 08/10/25 10:05 08/10/25 10:43 Temperature 97.9 F Pulse Rate 71 Respiratory Rate 18 14 Blood Pressure 141/77 H Pulse Oximetry 95 Oxygen Delivery Method Room Air BMI result Body Mass Index 23.5 Appearance: Alert. Oriented X3. No acute distress. Eyes: Pupils equal, round and reactive to light. ENT: Pharynx normal. She has diffuse tenderness to palpation on the head but no temporal artery tenderness to palpation or ropiness, left TM normal, throat exam is normal Neck: Normal inspection. Neck supple. CVS: Normal heart rate and rhythm. Pulses normal. Respiratory: No respiratory distress. Breath sounds normal. Abdomen: Soft and nontender. Skin: Skin warm and dry. Normal skin color. Normal skin turgor. Extremities: No lower extremity edema. Neuro: Oriented X 3. No motor deficit. No sensory deficit. Course Course Course Narrative: RME: 80 yold female wit pmh of NSTEmI and HTN presents to the ED for facial pain and headache for 5 days and past two days chest pain radiating to the back. labs, EKG, and head CT scan ordered. Medications Administered Discontinued Medications Generic Name Dose Route Start Last Admin Trade Name Freq PRN Reason Stop Dose Admin Morphine Sulfate 2 mg 08/10/25 10:31 08/10/25 10:43 Morphine Sulfate 4 Mg/Ml Cartridge IVPUSH 08/10/25 10:32 2 mg ONCE ONE Administration Protocol Medical Decision Making Medical Decision Making MDM Narrative: 80-year-old female with past medical history of NSTEMI, asthma, pulmonary embolus on Eliquis, hypertension, cognitive impairment, hyperlipidemia, GERD here with complaint of persistent headache x5 days but denies fever, trauma, she has no meningeal sign. She has no rash, she has no tender temporal artery on exam but I am obtaining ESR given her age and female gender. Given her Eliquis use and these headaches I do believe she needs to have a CT head to rule out subdural hemorrhage. She is at her baseline neurologically. 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 08/10/25 10:20 08/10/25 10:20 Labs: Lab Results 08/10/25 08/10/25 Range/Units 10:20 10:39 WBC 5.4 (4.8-10.8) X10*3/uL RBC 4.76 (4.20-5.50) X10*6/uL Hgb 13.7 (12.0-16.0) g/dl Hct 42.5 (37.0-47.0) % MCV 89.3 (80.0-98.0) fL MCH 28.8 (27.0-33.0) pg MCHC 32.2 (31.0-35.0) g/dl RDW 13.0 (11.0-16.0) % Plt Count 218 (160-400) X10*3/uL MPV 10.8 (9.4-12.3) fL Immature Gran % (Auto) 0.7 H (0.0-0.4) % Neut % (Auto) 43.7 L (45-73) % Lymph % (Auto) 35.7 (20-40) % [place] % (Auto) 13.1 H (2-11) % Eos % (Auto) 6.1 H (0-4) % Baso % (Auto) 0.7 (0-2) % Lymph # (Auto) 1.9 (1.2-4.9) X10*3/uL [place] # (Auto) 0.7 (0.1-1.2) X10*3/uL Eos # (Auto) 0.3 (0.0-0.4) X10*3/uL Baso # (Auto) 0.0 (0.0-0.2) X10*3/uL Abs Immat Gran (auto) 0.04 H (0.00-0.03) X10*3/uL Absolute Neuts (auto) 2.4 (2.0-8.3) x10*3/uL Absolute Nucleated RBC 0.000 (0.0-0.012) X10*3/uL Nucleated RBC % (auto) 0.0 (0.0-0.2) /100WBC ESR 8 (0-20) MM/HR PT 19.5 H (11.2-13.5) SEC INR 1.6 H (0.9-1.1) APTT 36.5 H (26.7-34.1) SEC Sodium 141 (135-145) mmol/L Potassium 4.1 (3.3-5.1) mmol/L Chloride 108 (96-108) mmol/L Carbon Dioxide 28 (22-29) mmol/L Anion Gap 9 L (12-20) BUN 22 H (9-16) mg/dL Creatinine 0.82 (0.5-1.4) mg/dL Estim Creat Clear Calc 38.8 Estimated GFR > 60 Random Glucose 114 (60-115) mg/dL Calcium 9.7 (8.4-10.2) mg/dL Total Bilirubin 0.6 (0.0-1.0) mg/dL AST 30 (5-31) U/L ALT 29 (0-31) U/L Alkaline Phosphatase 201 H (39-117) U/L Troponin I High Sens 3.4 (<3.5-17.0) ng/L Total Protein 7.2 (6.5-8.0) g/dL Albumin 4.1 (3.5-5.0) g/dL Independent Interpretation I performed an independent interpretation of an: EKG, Plain X-Ray (Normal) and CT Scan (Normal) Interpretation: Rate: 70 Rhythm: Normal sinus rhythm [place]: Left Normal P waves. Normal NANDO. Normal QRS complex. ST T wave : Normal no ST-elevation qTC: 414 prior studies: No acute ischemia The study has been interpreted contemporaneously by me. . Radiology Impression Discussion of test interpretation with radiology: I have reviewed the radiologist's reading. Independent Historian Clinical information obtained from an independent historian. History obtained from or confirmed by: Spouse External Record Review External record reviewed: Inpatient record, Outpatient record, Prior outpatient labs and Prior outpatient radiology Discharge Plan Discharge Clinical Impression: Acute headache Patient Disposition: Home, Self-Care Instructions: Acute Headache (ED) Additional Instructions: At this time your labs, chest x-ray, EKG, CT head were all normal You were given IV morphine for your pain which helped Please follow up with your primary care doctor Return for any worsening symptoms or concerns We will start him on a muscle relaxer for your complaint Prescriptions: New cyclobenzaprine 10 mg tablet 5 mg PO TID PRN (Reason: muscle spasm) Qty: 14 0RF No Action sertraline 100 mg tablet 200 mg PO DAILY montelukast 10 mg tablet 1 tab PO BEDTIME benazepril 10 mg tablet 1 tab PO QAM atorvastatin 80 mg Tablet 80 mg PO BEDTIME Qty: 30 0RF acetaminophen [Tylenol Extra Strength] 500 mg tablet 500 mg PO Q6H PRN (Reason: fever or pain) Qty: 14 0RF cyclobenzaprine 5 mg tablet 5 mg PO Q8H PRN (Reason: pain (scale score 7-10)) 5 Days Qty: 14 0RF metoclopramide HCl [Reglan] 5 mg tablet 5 mg PO Q6H PRN (Reason: nausea and vomiting) Qty: 10 0RF ondansetron 4 mg tablet,disintegrating 4 mg PO Q8H PRN (Reason: nausea and vomiting) Qty: 10 0RF calcium carbonate-vitamin D3 600 mg-5 mcg (200 unit) tablet 1 tab PO BID fluticasone propion-salmeterol 500-50 mcg/dose blister with device 1 puff inhalation BID Certavite-Antioxidant 18-400 mg-mcg tablet 1 tab PO DAILY Incruse Ellipta 62.5 mcg/actuation blister with device 1 puff inhalation DAILY isosorbide mononitrate 60 mg tablet extended release 24 hr 1 tab PO DAILY trazodone 100 mg tablet 200 mg PO BEDTIME omeprazole 20 mg capsule,delayed release(DR/EC) 1 cap PO DAILY trazodone 100 mg tablet 100 mg PO BEDTIME PRN (Reason: Insomnia) Rx Instructions: If addition to 200 mg if cannot sleep fluticasone propionate 50 mcg/actuation [place],Suspension 1 spray INTRANASAL DAILY PRN (Reason: Allergy Symptoms) Rx Instructions: administer into each nostril heparin(porcine) in 0.45% NaCl 25,000 unit/250 mL Parenteral Solution 25,000 unit continuous IV infusion .Q0M Qty: 6000 0RF aspirin 81 mg Tablet,Chewable 81 mg PO DAILY Qty: 1 0RF heparin (porcine) 5,000 unit/mL Solution 2,100 unit IVPUSH PROTOCOL BOLUS PRN (Reason: 40 Unit/Kg - Heparin Protocol) Qty: 1 0RF heparin (porcine) 5,000 unit/mL Solution 4,100 unit IVPUSH PROTOCOL BOLUS PRN (Reason: 80 Unit/Kg - Heparin Protocol) Qty: 1 0RF morphine 4 mg/mL Syringe 2 mg IVPUSH Q4H PRN (Reason: Pain, Severe (Pain Scale 7-10)) Qty: 10 0RF Protocol: Hold for RR < HOLD and contact provider for RR < (bpm): 12 Rx Instructions: Partial Fill upon patient request. ondansetron HCl (PF) 4 mg/2 mL Solution 4 mg IVPUSH Q8H PRN (Reason: Nausea And Vomiting) Qty: 10 0RF metoprolol tartrate 25 mg tablet 12.5 mg PO Q6H Qty: 1 0RF acetaminophen [Tylenol Extra Strength] 500 mg tablet 500 mg PO Q6H PRN (Reason: fever or pain) Qty: 14 0RF lidocaine [Lidoderm] 5 % adhesive patch,medicated 1 patch topical DAILY MDD remove after 12 hours PRN (Reason: pain) Qty: 30 0RF Rx Instructions: leave on most painful area for up to 12 hrs cyclobenzaprine 5 mg tablet 5 mg PO Q8H PRN (Reason: pain (scale score 7-10)) 5 Days Qty: 14 0RF cefuroxime axetil 250 mg tablet 250 mg PO BID 7 Days Qty: 14 0RF lidocaine 5 % adhesive patch,medicated 1 patch topical DAILY PRN (Reason: pain) Qty: 15 0RF Rx Instructions: leave on most painful area for up to 12 hrs acetaminophen [Tylenol] 325 mg capsule 325 mg PO Q4H PRN (Reason: pain) Qty: 30 0RF methocarbamol 750 mg tablet 750 mg PO BEDTIME PRN (Reason: pain) Qty: 7 0RF sucralfate [Carafate] 100 mg/mL suspension 10 ml PO QID PRN (Reason: nausea) Qty: 200 0RF Rx Instructions: swish in mouth and swallow; use after food/drink meclizine 25 mg tablet 25 mg PO BID PRN (Reason: dizziness) Qty: 10 0RF acetaminophen [Tylenol Extra Strength] 500 mg tablet 500 mg PO Q6H PRN (Reason: fever or pain) Qty: 14 0RF lidocaine [Lidoderm] 5 % adhesive patch,medicated 1 patch topical DAILY MDD remove after 12 hours PRN (Reason: pain) Qty: 30 0RF Rx Instructions: leave on most painful area for up to 12 hrs naproxen 500 mg tablet 500 mg PO BID PRN (Reason: pain) 7 Days Qty: 20 0RF cyclobenzaprine 5 mg tablet 5 mg PO Q8H PRN (Reason: pain (scale score 7-10)) 5 Days Qty: 14 0RF doxycycline hyclate 100 mg tablet 100 mg PO Q12H 7 Days Qty: 14 0RF benzonatate 100 mg capsule 100 mg PO TID PRN (Reason: cough) 5 Days Qty: 15 0RF tramadol 50 mg tablet 50 mg PO BID PRN (Reason: pain) Qty: 6 0RF tramadol 50 mg tablet 50 mg PO BID PRN (Reason: pain) Qty: 7 0RF loperamide [Imodium A-D] 2 mg capsule 2 mg PO Q6H PRN (Reason: loose stool) Qty: 20 0RF ondansetron 4 mg tablet,disintegrating 4 mg PO Q8H PRN (Reason: nausea and vomiting) Qty: 14 0RF lidocaine 5 % adhesive patch,medicated 1 patch topical DAILY Qty: 15 0RF Rx Instructions: leave on most painful area for up to 12 hrs Interventions: ED Discharge Assessment Last Done: 08/10/25 13:25 Discharge Date/Time: 08/10/25 13:26 Print Language: Citizen [place]
[2025-08-10 10:30] LABS: MANUAL DIFF FLAG NO
[2025-08-10 10:33] LABS: Hematocrit 42.5 % (37.0-47.0); Hemoglobin 13.7 g/dl (12.0-16.0); Imm Gran Abs Auto 0.04 X10*3/uL (0.00-0.03); Imm Gran Pct Auto 0.7 % (0.0-0.4); Lymphocytes Absolute Auto 1.9 X10*3/uL (1.2-4.9); Mean Corpuscular HGB Conc 32.2 g/dl (31.0-35.0); Mean Corpuscular Hemoglobin 28.8 pg (27.0-33.0); Mean Corpuscular Volume 89.3 fL (80.0-98.0); NRBC Abs Auto 0.000 X10*3/uL (0.0-0.012); NRBC Pct Auto 0.0 /100WBC (0.0-0.2); Platelet Count 218 X10*3/uL (160-400); Red Blood Count 4.76 X10*6/uL (4.20-5.50); White Blood Count 5.4 X10*3/uL (4.8-10.8)
[2025-08-10 10:37] LABS: INTERNATIONAL NORM RATIO 1.6 (0.9-1.1); Prothrombin Time 19.5 SEC (11.2-13.5)
[2025-08-10 10:39] LABS: Partial Thromboplastin Time 36.5 SEC (26.7-34.1)
[2025-08-10 10:43] VITALS: RESP 14
[2025-08-10 10:47] LABS: Alanine Aminotransferase 29 U/L (0-31); Albumin Level 4.1 g/dL (3.5-5.0); Alkaline Phosphatase 201 U/L (39-117); Anion Gap 9 (12-20); Aspartate Amino Transferase 30 U/L (5-31); Blood Urea Nitrogen 22 mg/dL (9-16); Calcium 9.7 mg/dL (8.4-10.2); Carbon Dioxide 28 mmol/L (22-29); Chloride 108 mmol/L (96-108); Creatinine Clr Calc Pharmacy 38.8; Estimated Glomerular Filt Rate > 60; Potassium 4.1 mmol/L (3.3-5.1); Sodium 141 mmol/L (135-145); Total Protein 7.2 g/dL (6.5-8.0)
[2025-08-10 10:54] LABS: Troponin-I High Sensitivity 3.4 ng/L (<3.5-17.0)
--- OUTSIDE RECORDS SUMMARY | 2025-08-10 11:13 | XMS_ITS | Clinical Summary ---
Author Organization [employer] Address [address] [place] [address] [address] [place] [address] Care Team Providers Care Public Health Dietitian Name Role Phone Tiffany Kent MD Primary Care Provider [phone] Cy Perdue MD Unavailable [phone] Allergies Active Allergy Reactions Criticality Noted [...] coronary artery,Acute non-ST elevation myocardial infarction (NSTEMI) ([facility]) TAKE 1 TABLET BY MOUTH EVERY MORNING 90 tablet 3 09/21/19 25 Active metoprolol succinate XL (Toprol-XL) 25 MG 24 hr tabletIndication s:Essential hypertension,Art eriosclerosis of coronary artery,Acute non-ST elevation myocardial infarction (NSTEMI) ([facility]) TAKE 1 TABLET BY MOUTH EVERY MORNING [...] 30 each 11 02/22/20 25 Active Umeclidinium [place] (Incruse Ellipta) 62.5 MCG/ACT aerosol powderIndication s:Pulmonary emphysema, unspecified emphysema type Inhale 1 Act (62.5 mcg) Once per day. 30 each 08/06/2025 10:51 AM EST 02/22/20 25 Active traZODone (Desyrel) 100 MG tabletIndication s:Severe dementia with other behavioral disturbance, unspecified dementia type (CMS/HCC) ([facility]) take 2-3 tablets by oral route every [...] tabletIndication s:Acute non-ST elevation myocardial infarction (NSTEMI) ([facility]) Place 1 tablet (0.4 mg) under the tongue every 5 (five) minutes if needed for chest pain. 30 tablet 06/15/20 25 Active donepezil (Aricept) 5 MG tabletIndication s:Severe dementia with other behavioral disturbance, unspecified dementia type (CMS/HCC) ([facility]) TAKE 1 TABLET BY MOUTH AT BEDTIME [...] 0.083% nebulizer solution 2.5 mgIndications:COPD exacerbation (CMS/HCC) ([facility]) 2.5 mg NEBULIZATION Once 08/01/2025 08/01/2025 Ended Active Problems Patient Care Coordination No te Formatting of this note migh t be different from the original. [employer] Con[employer] Orchestra: Mikayla Brittrio Support Agency: [facility] Problem Noted Date Diagnosed Date Stage 3b chronic kidney disease ([facility]) 2024 Overview (07/24/2025): Lab Results Component Value Date CREATININE 1.03 06/23/2025 CREATININE 0.99 05/02/2025 CREATININE 0.86 06/21/2024 CREATININE 0.94 08/06/2022 CREATININE 1.02 04/14/2022 CREATININE 0.94 04/06/2022 EGFR 52 06/23/2025 EGFR 54 05/02/2025 EGFR >60 06/21/2024 MICROALBCREU 8.0 04/17/2024 -avoid nephrotoxic agents Depression, recurrent 07/19/2024 Severe dementia with other b ehavioral disturbance, unspecified dementia type ([facility]) 04/13/2024 Overview (02/21/2025): Per daughter, pt's short-term [...] [facility] on 05/02/2014. -Last Eye Exam at [facility] with Dr. Hutchison on 11/2022, will request most recent note. -has dentures -health care proxy 07/19/24 Assessment & Plan (06/15/2025 10:55 AM EDT): -Next annual evaluation due after 06/15/26 -MOLST was done with [facility] on 05/02/2014. -Last Eye Exam at [facility] with Dr. Hutchison on 11/2022, will request most recent note. -has dentures -health care proxy 07/19/24 Assessment & Plan (02/21/2025 9:29 AM EDT): -Next annual evaluation due after 07/19/25 -MOLST was done with [facility] on 05/02/2014. -Last Eye Exam at [facility] with Dr. Hutchison on 11/2022, will request most recent note. -has dentures -health care proxy 07/19/24 Assessment & Plan (07/19/2024 2:40 PM EDT): -Next annual evaluation due after 07/19/25 -MOLST was done with [facility] on 05/02/2014. -Last Eye Exam at [facility] with Dr. Hutchison on 11/2022, will request most recent note. -has dentures -health care proxy 07/19/24 Assessment & Plan (03/04/2023 9:17 AM EDT): Next PE due after March 04/2024 -MOLST was done with [facility] on 05/02/2014. -Last Eye Exam at [facility] with Dr. Martin on 11/2022, will [...] (09/24/2022): -unprovoked pulmonary embolism -continue Eliquis for filler leaf cutter long anticoagulation -discuss fall prcautions Assessment & Plan (06/15/2025 10:55 AM EDT): -unprovoked pulmonary embolism -continue Eliquis for chcf anticoagulation -discuss fall prcautions Assessment & Plan (02/21/2025 9:29 AM EDT): -unprovoked pulmonary embolism -continue Eliquis for filler leaf cutter long anticoagulation -discuss fall prcautions Assessment & Plan (07/19/2024 2:44 PM EDT): -unprovoked pulmonary embolism -continue Eliquis for chcf anticoagulation -discuss fall prcautions Assessment & Plan (03/04/2023 8:54 AM EDT): -unprovoked pulmonary embolism -continue Eliquis for chcf anticoagulation -discuss fall prcautions Assessment & Plan (09/24/2022 11:56 AM EST): -unprovoked pulmonary embolism -continue Eliquis for filler leaf cutter long anticoagulation -discuss fall prcautions Urinary incontinence 09/24/2022 [...] BP on metoprolol and nitropaste. -admitted to [facility] 11/10/24 for chest pain with normal ECG, cardiac biomarkers mildly elevated but flat. -Patient followed at [facility] with Dr. Suzan Perdue [...] BP on metoprolol and nitropaste. -admitted to [facility] 11/10/24 for chest pain with normal ECG, cardiac biomarkers mildly elevated but flat. -Patient followed at [facility] with Dr. Suzan Perdue [...] coronary artery 03/03/2022 Thyroid nodule 03/03/2022 Overview (08/10/2025): -FNA 11/05/2016 benign -Biopsy on 06/26/2020 with [...] to be biopsied to rule out neoplasm. -thryoid US 08/10/25 MPRESSION: ACR TI-RADS Category 3 and 4 ACR TI-RADS RECOMMENDATION REFERENCE: Ultrasound-guided fine-needle aspiration, followup ultrasound, no further follow up. Assessment & Plan (06/15/2025 10:55 AM EDT): [...] exam: followed by Dr. Irving Palencia of [facility] -Diabetic foot exam: done 07/19/24 [...] exam: followed by Dr. Irving Palencia of [facility] -Diabetic foot exam: done 07/19/24 [...] exam: followed by Dr. Irving Palencia of [facility] -Diabetic foot exam: done 07/19/24 [...] Encounters Date Type Department Care Team Description 08/10/2025 Orders Only GENERIC EXTERNAL DATA DEPARTMENT Provider, Generic External Data 08/07/2025 [facility] [address] [address] Ang Ulloa MD NEBULIZER 08/06/[address] [address] Tiffany Kent MD Med Refill 08/05/2025 Orders Only [facility] External Provider, [facility] 08/01/2025 9:40 AM EST Office Visit [address] [address] Ang Ulloa MD COPD exacerbation ([facility]) (HCC) (Primary Dx); Cough in adult; Nasal congestion 08/01/2025 Results Follow-Up [address] [address] Ang Ulloa MD XR Chest 2 Views 08/01/2025 Travel 07/23/2025 11:15 AM EST Telemedicine [address] [address] Tiffany Kent MD Essential hypertension (Primary Dx) 07/23/2025 Travel 07/20/[address] [address] Tiffany Kent MD chartprep 06/23/2025 Orders Only GENERIC EXTERNAL DATA DEPARTMENT Provider, Generic External Data 06/19/[address] [address] Tiffany Knet MD Severe dementia with other behavioral disturbance, unspecified dementia type ([facility]); Mild intermittent asthma without complication 06/15/2025 10:30 AM EDT Office Visit [address] [address] Tiffany Kent MD Type 2 diabetes mellitus without complication, with long-term current use of insulin ([facility]) (Primary Dx); Essential hypertension; Hyperlipidemia, unspecified hyperlipidemia type; Pulmonary emphysema, unspecified emphysema type (CMS/HCC); Acute non-ST elevation myocardial infarction (NSTEMI) ([facility]); History of pulmonary embolism; Anemia, unspecified type; Thyroid nodule; Severe dementia with other behavioral disturbance, unspecified dementia type ([facility]); Encounter for immunization; Other specified health status 06/15/2025 Telephone [facility] [address] [place] [address] Tiffany Kent MD 06/15/2025 Travel 06/07/2025 Orders Only [facility] [address] [place] [address] Tiffany Kent MD Acute non-ST elevation myocardial infarction (NSTEMI) ([facility]) (Primary Dx); Arteriosclerosis of coronary artery; Hyperlipidemia, unspecified hyperlipidemia type; Essential hypertension 06/06/[address] [address] Tiffany Kent MD Referral 06/04/[address] [address] Tiffany Kent MD from Last 3 Months [...] chronic kidney disease No Tiffany Kent MD Procedures Procedure Name Priority Date/Time Associated Diagnosis Comments XR CHEST 2 VIEWS Routine 08/10/2025 10:5 7 AM EST HIGH SENSITIVITY TROPONIN I Routine 08/10/2025 10:20 AM EST COMPREHENSIVE METABOLIC PANEL Routine 08/10/2025 10:20 AM EST APTT Routine 08/10/2025 10:20 AM EST PROTHROMBIN TIME-INR Routine 08/10/2025 10:20 AM EST CBC WITH AUTO DIFFERENTIAL Routine 08/10/2025 10:20 AM EST US THYROID Routine 08/09/2025 11:46 AM EST [...] use of insulin ([facility]) POCT GLYCOSYLATED HEMOGLOBIN (HGB A1C) Routine 06/15/2025 10:34 AM EDT Type 2 diabetes mellitus without complication, with long-term current use of insulin ([facility]) ALBUMIN, RANDOM URINE W/CREATININE Routine 04/17/2024 8:35 AM EDT Type 2 diabetes mellitus without complication, without long-term current use of insulin ([facility]) LIPID PANEL, STANDARD Routine 04/17/2024 8:35 AM EDT Type 2 diabetes mellitus without complication, without long-term current use of insulin ([facility]) DIABETES EYE EXAM Routine 02/18/2023 from Last 3 Months or Most Recently Relevant to Health Maintenance Results * XR Chest 2 Views (08/10/2025 10:57 AM EST) Only the most recent of4 resultswithin the time period is included. Anatomical Region Laterality Modality Chest Radiographic Nicolasa ging 08/10/2025 10:5 7 AM EST Narrative 08/10/2025 11:07 AM EST [place] [address] XRay Report Signed Patient: Edilma Méndez MR#: [id number] : 1945 Acct:[id number] Age/Sex: 80 / F ADM Date: 08/10/25 Loc: HO.ED Attending Dr: Ordering Physician: Jed Grissom Date of Service: 08/10/25 Procedure(s): XR chest 2V Accession Number(s): [id number] cc: Jed Grissom; Tiffany Kent MD Reason for Exam: chest pain EXAMINATION: XR CHEST 2 VIEWS HISTORY: chest pain COMPARISON: Comparison is made with the prior examination dated 08/05/2025. FINDINGS: PA and lateral views of the chest are submitted. There are low lung volumes. Again seen is mild interstitial prominence at the bases. There is no focal airspace opacity. There is no pleural effusion, pneumothorax, or pulmonary vascular congestion. The heart is normal in size. There is degenerative disc disease of the spine. There are surgical clips in the right upper quadrant. XR/XR chest 2V IMPRESSION: No acute cardiopulmonary abnormality. Electronically signed by: Gary Hartman MD 08/10/2025 11:04 AM EST Dictated By: Gary Hartman MD Signed By: <Electronically signed by Gary Hartman MD in OV> 08/10/25 1104 DD/ 1057 TD/TT: 08/10/25 1101 [employer]: Procedure Note Donotuseinterpreter, Image - 08/10/2025 [place] [address] XRay Report Signed Patient: Esther Méndez#: [id number] : 5Acct:[id number] Age/Sex: 80 / FADM Date: 08/10/25 Loc: .ED Attending Dr: Ordering Physician: Jed Grissom Date of Service: 08/10/25 Procedure(s): XR chest 2V Accession Number(s): [id number] cc: Jed Grissom; Tiffany Kent MD Reason for Exam: chest pain EXAMINATION: XR CHEST 2 VIEWS HISTORY: chest pain COMPARISON: Comparison is made with the prior examination dated 08/05/2025. FINDINGS: PA and lateral views of the chest are submitted. There are low lung volumes. Again seen is mild interstitial prominence at the bases. There is no focal airspace opacity. There is no pleural effusion, pneumothorax, or pulmonary vascular congestion. The heart is normal in size. There is degenerative disc disease of the spine. There are surgical clips in the right upper quadrant. XR/XR chest 2V IMPRESSION: No acute cardiopulmonary abnormality. Electronically signed by: Gary Hartman MD 08/10/2025 11:04 AM EST Dictated By: Gary Hartman MD Signed By: <Electronically signed by Gary Hartman MD in OV> 08/10/25 1104 DD/ 1057 TD/TT: 08/10/25 1101 [employer]: [facility] External Provider IMG XR PROCEDURES Final Result * High Sensitivity Troponin I (08/10/2025 10:20 AM EST) Only the most recent of3 resultswithin the time period is included. [facility] TROPONIN I HIGH SENSITIVITY 3.4 <3.5 - 17.0 ng/L [facility] Comment:The Brown high sens itivity Troponin-I results should beused in conjunction with other diagnostic information suchas ECG, clinical observations and information, and patientsymptoms to aid in the diagnosis of NC. 08/10/2025 10:2 0 AM EST 08/10/2025 10:27 AM EST Generic External Data Provider LAB BLOOD ORDERAB LES Final Result [facility] [address] [place] [phone] * (ABNORMAL) CBC auto differential (08/10/2025 10:20 AM EST) Only the most recent of3 resultswithin the time period is included. Pathologist [facility] White Blood Count 5.4 4.8 - 10.8 X10*3/uL [facility] Red Blood Count 4.76 4.20 - 5.50 X10*6/uL [facility] Hemoglobin 13.7 12.0 - 16.0 g/dl [facility] Hematocrit 42.5 37.0 - 47.0 % [facility] Mean Corpuscular Volume 89.3 80.0 - 98.0 fL [facility] Mean Corpuscular Hemoglobin 28.8 27.0 - 33.0 pg [facility] Mean Corpuscular HGB Conc 32.2 31.0 - 35.0 g/dl [facility] Red Cell Distribution Width 13.0 11.0 - 16.0 % [facility] Platelet Count 218 160 - 400 X10*3/uL [facility] Mean Platelet Volume 10.8 9.4 - 12.3 fL [facility] Neutrophils Percent Auto 43.7(L) 45 - 73 % [facility] Imm Gran Pct Auto 0.7(H) 0.0 - 0.4 % [facility] Lymphocytes Percent Auto 35.7 20 - 40 % [facility] Monocytes Percent Auto 13.1(H) 2 - 11 % [facility] Eosinophils Percent Auto 6.1(H) 0 - 4 % [facility] Basophils Percent Auto 0.7 0 - 2 % [facility] NRBC Pct Auto 0.0 0.0 - 0.2 /100WBC [facility] Neutrophils Absolute Auto 2.4 2.0 - 8.3 x10*3/uL [facility] Imm Gran Abs Auto 0.04(H) 0.00 - 0.03 X10*3/uL [facility] Lymphocytes Absolute Auto 1.9 1.2 - 4.9 X10*3/uL [facility] Monocytes Absolute Auto 0.7 0.1 - 1.2 X10*3/uL [facility] Eosinophils Absolute Auto 0.3 0.0 - 0.4 X10*3/uL [facility] Basophils Absolute Auto 0.0 0.0 - 0.2 X10*3/uL [facility] NRBC Abs Auto 0.000 0.0 - 0.012 X10*3/uL [facility] 08/10/2025 10:2 0 AM EST 08/10/2025 10:27 AM EST us Generic External Data Provider LAB BLOOD ORDERAB LES Final Result [facility] [address] [place] [address] [phone] * (ABNORMAL) Partial Thromboplastin Time, Activated (APTT) (08/10/2025 10:20 AM EST) Partial Thromboplastin Time 36.5(H) 26.7 - 34.1 SEC [facility] 08/10/2025 10:2 0 AM EST 08/10/2025 10:27 AM EST Generic External Data Provider LAB BLOOD ORDERAB LES Final Result Performing Organization Address City/[facility] Co de Phone Number [facility] [address] [place] [phone] * (ABNORMAL) Prothrombin Time-INR (08/10/2025 10:20 AM EST) Prothrombin Time 19.5(H) 11.2 - 13.5 SEC [facility] INTERNATIONAL NORM RATIO 1.6(H) 0.9 - 1.1 [facility] Comment:INTERNATIONAL NORMAL IZED RATIO (INR) REFERENCE RANGES Reference RangeFor patients not on anticoagulant therapy: 0.9 - 1.1INR ranges for oral anticoagulanttherapy:For prevention and treatment of venous thrombosis and pulmonary embolism: 2.0 - 3.0For acute myocardial infarction with aspirin therapy: 2.0 - 3.0For acute myocardial infarction without aspirin therapy: 3.0 - 4.0For patients with mechanical prosthetic heart valves: 2.5 - 3.5 08/10/2025 10:2 0 AM EST 08/10/2025 10:27 AM EST [employer] External Data Provider LAB BLOOD ORDERAB LES Final Result Performing Organization Address [facility] Co de Phone Number [facility] [address] [place] [phone] * (ABNORMAL) Comprehensive Metabolic Panel (08/10/2025 10:20 AM EST) Only the most recent of3 resultswithin the time period is included. Sodium 141 135 - 145 mmol/L [facility] Potassium 4.1 3.3 - 5.1 mmol/L [facility] Chloride 108 96 - 108 mmol/L [facility] Carbon Dioxide 28 22 - 29 mmol/L [facility] Anion Gap 9(L) 12 - 20 [facility] Urea Nitrogen (BUN) 22(H) 9 - 16 mg/dL [facility] Creatinine, Serum 0.82 0.5 - 1.4 mg/dL [facility] Creatinine Clr Calc Pharmacy 38.8 [facility] Comment:Provided height and weight: 147.32 cm,51.1 kg.eGFR (calculated from the MDRD study equation) and eCrCl(calculated from the Cockcroft-Gault equation) are based ondifferent parameters and may not yield comparable results.If eCrCl result is absurd, please check patient'sheight/weight. Estimated Glomerular Filt Rate >60 [facility] Comment:Chronic Kidney Disea se: Estimated GFR < 60 mL/min/1.82h6Pogema Kidney Disease: Estimated GFR < 15 mL/min/1.73m2 Glucose 114 60 - 115 mg/dL [facility] Calcium 9.7 8.4 - 10.2 mg/dL [facility] Bilirubin, Total 0.6 0.0 - 1.0 mg/dL [facility] Aspartate Amino Transferase 30 5 - 31 U/L [facility] Alanine Aminotransferase 29 0 - 31 U/L [facility] Total Protein 7.2 6.5 - 8.0 g/dL [facility] Albumin Level 4.1 3.5 - 5.0 g/dL [facility] Alkaline Phosphatase 201(H) 39 - 117 U/L [facility] 08/10/2025 10:2 0 AM EST 08/10/2025 10:27 AM EST us Generic External Data Provider LAB BLOOD ORDERAB LES Final Result [facility] [address] [place] [address] [phone] * US Thyroid (08/09/2025 11:46 AM EST) Anatomical Region Laterality Modality Head, Neck Ultrasound 08/09/2025 11:4 6 AM EST Narrative 08/09/2025 2:[address] [address] Ultrasound Report Signed Patient: Edilma Méndez MR#: [id number] : 1945 Acct:[id number] Age/Sex: 80 / F ADM Date: 08/09/25 Loc: HO.US Attending Dr: Tiffany Kent MD Ordering Physician: Tiffany Kent MD Date of Service: 08/09/25 Procedure(s): US thyroid Accession Number(s): [id number] cc: Tiffany Kent MD Reason for Exam: [...] than or equal to 1 cm: 1. Graduate Research Assistant nodules are described as follows: 1. Location: [...] by: Buster Baez MD 08/09/2025 02:18 PM [facility] Dictated By: Buster Richards MD Signed By: <Electronically signed by Buster Farmer MD in OV> 08/09/25 1418 DD/ 1146 TD/TT: 08/09/25 1158 [employer]: Procedure Note Donotuseinterpreter, Image - 08/09/2025 [place] [address] Ultrasound Report Signed Patient: Esther Méndez#: [id number] : 5Acct:[id number] Age/Sex: 80 / FADM Date: 08/09/25 Loc: HO.US Attending Dr: Tiffany Kent MD Ordering Physician: Tiffany Kent MD Date of Service: 08/09/25 Procedure(s): US thyroid Accession Number(s): [id number] cc: Tiffany Kent MD Reason for Exam: [...] than or equal to 1 cm: 1. Graduate Research Assistant nodules are described as follows: 1. Location: [...] by: Buster Baez MD 08/09/2025 02:18 PM [facility] Dictated By: Buster Richards MD Signed By: <Electronically signed by Buster Farmer MDin OV> 08/09/25 1418 DD/ 1146 TD/TT: 08/09/25 1158 [employer]: us Tiffany Kent MD IMG US PROCEDURES Final Re sult * CT Abdomen Pelvis w/ Contrast (08/05/2025 10:19 PM EST) Anatomical Region Laterality Modality Body, Pelvis, Abdomen Computed T omography 08/05/2025 10:1 9 PM EST Narrative 08/05/2025 10:22 PM EST [place] [address] CT Scan Report Signed Patient: Edilma Méndez MR#: [id number] : 1945 Acct:[id number] Age/Sex: 80 / F ADM Date: 08/05/25 Loc: HO.ED Attending Dr: Ordering Physician: Kelly Heath DO Date of Service: 08/05/25 Procedure(s): CT abdomen pelvis w IV con Accession Number(s): [id number] cc: Tiffany Kent MD; Kelly Heath DO Report Number: [id number]: Total DLP = 0.00 mGy-cm Reason for Exam: abd pain CLINICAL HISTORY: abd pain CT abdomen and pelvis with contrast Comparison: CT/AK/SR - CT ABDOMEN PELVIS WITH IV CONTRAST [...] in OV> 08/05/252220 DD/ 18 TD/TT: 08/05/252218 [employer]: Procedure Note Donotuseinterpreter, Image - 08/05/[address] [place] [address] [address] Scan Report Signed Patient: Esther Méndez#: [id number] : 5Acct:[id number] Age/Sex: 80 / FADM Date: 08/05/25 Loc: HO.ED Attending Dr: Ordering Physician: Kelly Heath DO Date of Service: 08/05/25 Procedure(s): CT abdomen pelvis w IV con Accession Number(s): [id number] cc: Tiffany Kent MD; Kelly Heath DO Report Number: [id number]: Total DLP = 0.00 mGy-cm Reason for Exam: abd pain CLINICAL HISTORY: abd pain CT abdomen and pelvis with contrast Comparison: CT/AK/SR - CT ABDOMEN PELVIS WITH IV CONTRAST [...] MD in OV> 08/05/252220 DD/ 18 TD/TT: 11/16/25 2219 [employer]: us [facility] External Provider IMG CT PROCEDURES Edited Result - Final * VENOUS BLOOD GAS (08/05/2025 9:05 PM EST) VBG pH 7.43 7.32 - 7.43 [facility] Comment:METER #: [id number] additional_comment: Urbano corado VBG PCO2 35 mmHg [facility] Comment:METER #: [id number] additional_comment: Cb jeanetteh VBG PO2 69 mmHg [facility] Comment:METER #: [id number] additional_comment: Cb mickie VBG Base Excess -0.2 mmol/L [facility] Comment:METER #: [id number] additional_comment: Urbano corado VBG HCO3 23 22 - 26 mmol/L [facility] Comment:METER #: [id number] additional_comment: Urbano corado O2 Sat, Casey 93.0 % [facility] Comment:METER #: [id number] additional_comment: Urbano corado 08/05/2025 9:05 PM EST 08/05/2025 9:10 PM EST Generic External Data Provider LAB BLOOD ORDERAB LES Final Result Performing Organization Address [facility] Co de Phone Number [facility] [address] [place] [phone] * Lactic Acid (08/05/2025 9:01 PM EST) Lactic Acid 1.3 0.5 - 2.0 mmol/L [facility] 08/05/2025 9:01 PM EST 08/05/2025 9:04 PM EST Generic External Data Provider LAB BLOOD ORDERAB LES Final Result Performing Organization Address [facility] Co de Phone Number [facility] [address] [place] [phone] * SARS-CoV-2 RNA, Influenza A/B, and RSV RNA, Ql NAAT (08/05/2025 5:47 PM EST) Influenza A PCR NEGATIVE Negative [facility] Influenza B PCR NEGATIVE Negative [facility] Resp Syncy Virus RNA Qual PCR NEGATIVE Negative [facility] SARS COV2 PCR NEGATIVE Negative [facility] Comment:All test results mus t be [...] use by authorized laboratories.Testing performed on the [employer] GeneXpert utilizingreal-time RT-PCR.All SARS CoV2 and positive influenza A/B results arereported to [facility]. 08/05/2025 5:47 PM EST 08/05/2025 5:50 PM EST Generic External Data Provider LAB MICROBIOLOGY - GENERAL ORDERABLES Final Result Performing Organization Address City/[facility]/ZIP Co de Phone Number [facility] [address] [place] [phone] * POCT Rapid Influenza B BROWN ID NOW (08/01/2025 10:24 AM EST) Influenza B Negative Negative, Indeterminate [facility] QC Media Lot # [id number] [facility] Lot# Expiration Date [id number] [facility] Swab 08/01/2025 10:2 4 AM EST Ang Ulloa MD POINT OF CARE TEST ENTER/EDIT OR DERABLES Final Result Performing Organization Address City/[facility]/ZIP Co de Phone Number [facility] [address] [place] [phone] * POCT Rapid Influenza A BROWN ID NOW (08/01/2025 10:24 AM EST) Influenza A Negative Negative, Indeterminate [facility] QC Media Lot # [id number] [facility] Lot# Expiration Date ,[id number] [facility] Swab 08/01/2025 10:2 4 AM EST us Ang Ulloa MD POINT OF CARE TEST ENTER/EDIT OR DERABLES Final Result [facility] [address] [place] [address] [phone] * POCT Rapid Covid-19 BROWN ID NOW (08/01/2025 10:09 AM EST) Coronavirus Antigen PCR Negative Negative, Indeterminate, None Detected, Invalid, Specimen unsatisfactory for evaluation, Weakly Positive, 2+ QC Media Lot # [id number] Lot# Expiration Date [id number] Swab 08/01/2025 10:0 9 AM EST us Ang Ulloa MD POINT OF CARE TEST ENTER/EDIT OR DERABLES Final Result * XR KUB and Upright 2 Views (06/23/2025 9:53 PM EDT) Anatomical Region Laterality Modality Radiographic Nicolasa ging 06/23/2025 9:53 PM EDT Narrative 06/23/2025 9:56 PM EDT [address] [address] XRay Report Signed Patient: Edilma Méndez MR#: [id number] : 1945 Acct:[id number] Age/Sex: 80 / F ADM Date: 06/23/25 Loc: .ED Attending Dr: Ordering Physician: Kesha Wolf Date of Service: 06/23/25 Procedure(s): XR KUB Accession Number(s): [id number] cc: Tiffany Kent MD; Kesha Wolf Reason [...] in OV> 06/23/252154 DD/ 52 TD/TT: 06/23/252152 Industrial Workers: Procedure Note Donotuseinterpreter, Image - 06/23/2025 [place] [address] XRay Report Signed Patient: Esther Méndez#: [id number] : 5Acct:[id number] Age/Sex: 80 / FADM Date: 06/23/25 Loc: .ED Attending Dr: Ordering Physician: Kesha Wolf Date of Service: 06/23/25 Procedure(s): XR KUB Accession Number(s): [id number] cc: Tiffany Kent MD; Kesha Wolf Reason [...] in OV> 06/23/252154 DD/ 52 TD/TT: 06/23/252152 Industrial Workers: [facility] External Provider IMG XR PROCEDURES Edited Result - Final * (ABNORMAL) Urinalysis Complete (06/23/2025 9:29 PM EDT) Color Urine Yellow [facility] Appearance Urine Clear [facility] PH 6.0 5.0 - 9.0 [facility] Glucose Urine UA Negative Negative mg/dL [facility] Urine Blood Negative Negative [facility] Specific [place] - Urine 1.010 1.005 - 1.025 [facility] Urine Protein Negative Neg-Trace mg/dL [facility] Urine Ketones Negative Negative mg/dL [facility] Nitrite Urine Negative Negative [facility] Leukocyte Esterase Urine Trace(A) Negative [facility] RBC Urine 0-2 0 - 2 /HPF [facility] Urine WBC 0-5 0 - 5 /HPF [facility] Urine Squamous Epithelial Cell 0-2 0 - 2 /HPF [facility] Urine Bacteria None Seen None Seen [facility] Hyaline Casts, Urine 0-2 0 - 2 /LPF [facility] 06/23/2025 9:29 PM EDT 06/23/2025 9:34 PM EDT us Generic External Data Provider LAB URINE ORDERAB LES Final Result [facility] [address] [place] [phone] * COVID-19 ID NOW (BROWN) (06/23/2025 3:57 PM EDT) IDNOW SERIAL# [id number] [facility] COVID-19 TEST Negative Negative [facility] COVID-19 NOTE See Note [facility] Comment: Results are for the identification of SARS-CoV2 RNA. TheSARS-CoV2 RNA is generally detectable in respiratory samplesduring the acute phase of infection. Positive results areindicative of the presence of SARS-CoV-2 RNA; clinicalcorrelation with patient history and other diagnosticinformation is necessary to determine patient infectionstatus. Positive results do not rule out bacterial infectionor co- infection with other viruses.Testing facilities within the [facility] and itsterritories are required to report all [...] use by authorized laboratories.Testing performed on the Ed[employer] ID NOW utilizing NAAT. 06/23/2025 3:57 PM EDT 06/23/2025 4:12 PM EDT Generic External Data Provider LAB MOLECULAR CYNTHIA GNOSTICS ORDERABLES Final Result Performing Organization Address [facility] Co de Phone Number [facility] [address] [place] [phone] * Lipase (06/23/2025 3:57 PM EDT) Lipase 37 8 - 78 U/L [facility] 06/23/2025 3:57 PM EDT 06/23/2025 4:12 PM EDT Generic External Data Provider LAB BLOOD ORDERAB LES Final Result Performing Organization Address [facility] Co de Phone Number [facility] [address] [place] [address] [phone] * POCT glucose manually resulted (06/15/2025 10:35 AM EDT) Glucose Blood, POC 105 60 - 200 mg/dL QC Media Lot # [id number] Lot# Expiration Date [id number] Blood Capillary blood specimen / Unknown 06/15/2025 10:35 AM EDT Tiffany Kent MD POINT OF CARE TEST ENTER/E DIT ORDERABLES Final Result * (ABNORMAL) POCT glycosylated hemoglobin (Hgb A1c) (06/15/2025 10:34 AM EDT) Hemoglobin A1C 6.0(A) 4.0 - 5.7 % QC Media Lot # [id number] Lot# Expiration Date [id number] Blood Capillary blood specimen / Unknown 06/15/2025 10:34 AM EDT Tiffany Kent MD POINT OF CARE TEST ENTER/E DIT ORDERABLES Final Result * Albumin, Random Urine W/Creatinine (04/17/2024 8:35 AM EDT) Creatinine, Urine 111.68 mg/dL [facility] Microalbumin Urine 9.0 mg/L [facility] Microalbum Creatinine Ratio Ur 8.0 <30 ug/mg cr [facility] Comment:Albumin/Creatinine R atio Reference Ranges: Normal: < 30 ug/mg creatinine Microalbuminuria: 30 - 300 ug/mg creatinineClinical Albuminuria: > 300 ug/mg creatinine Urine 04/17/2024 8:35 AM EDT 04/17/2024 11:52 AM EDT Tiffany Kent MD LAB URINE ORDERABLES Final Result [facility] [address] [place] [address] [phone] * Lipid Panel, Standard (04/17/2024 8:35 AM EDT) Triglycerides 107 <150 mg/dL [facility] Comment:Desirable Triglyceri de: less than 150 mg/dLBorderline High Triglyceride 150-199 mg/dLHigh Triglyceride: 200-499 mg/dLVery High Triglyceride: greater than or equal to 5OO mg/dL Cholesterol 115 <200 mg/dL [facility] Comment:Desirable Cholestero l: less than 200 mg/dLBorderline High Cholesterol: 200-239 mg/dLHigh Cholesterol: greater than 239 mg/dL LDL Cholesterol Calculated 40 <100 mg/dL [facility] Comment:Desirable LDL: less than 100 mg/dLNear Optimal/Above Optimal LDL: 110- 129 mg/dLBorderline High LDL: 130-159 mg/dLHigh LDL: 160-189 mg/dLVery High LDL: greater than or equal to 190 mg/dL HDL Cholesterol 54 >40 mg/dL [facility] Comment:Desirable HDL: great er than 40 mg/dL Note: This HDL assay may give artificially low results in patients with liver disease. Blood Venous blood specimen / Unknown 04/17/2024 8:35 AM EDT 04/17/2024 11:37 AM EDT Tiffany Kent MD LAB BLOOD ORDERABLES Final Result [facility] [address] [place] [address] [phone] * Diabetes Eye Exam (02/18/2023) [facility] Signature Eye Exam Normal Normal Comment:Dr. 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 Phelps Psychiatry 02/21/25
--- OUTSIDE RECORDS SUMMARY | 2025-08-10 11:13 | XMS_ITS | Encounter Summary ---
Author Organization [employer] Address [address] [place] [address] Care Team Providers Care Physics Tutor Name Role Phone Tiffany Kent MD Primary Care Provider [phone] Cy Perdue MD Unavailable [phone] Encounter Details Date Type Department Care Team ([facility] Contact Info) Description 08/10/2025 Orders Only GENERIC EXTERNAL DATA DEPARTMENT Provider, Generic External Data Social History Tobacco Use Types Packs/Day Years [...] manage their type 2 diabetes No Kosta Henrandez MA Weekly blood pressure task Care Plan [...] TROPONIN I Routine 08/10/2025 10:20 AM EST CBC WITH AUTO DIFFERENTIAL Routine 08/10/2025 10:20 AM EST APTT Routine 08/10/2025 10:20 AM EST PROTHROMBIN TIME-INR Routine 08/10/2025 10:20 AM EST COMPREHENSIVE METABOLIC PANEL Routine 08/10/2025 10:20 AM EST documented in this encounter Results * XR Chest 2 Views (08/10/2025 10:57 AM EST) Anatomical Region Laterality Modality Chest Radiographic Nicolasa ging 08/10/2025 10:5 7 AM EST Narrative 08/10/2025 11:07 AM EST [address] [address] XRay Report Signed Patient: Edilma Méndez MR#: [id number] : 1945 Acct:[id number] Age/Sex: 80 / F ADM Date: 08/10/25 Loc: HO.ED Attending Dr: Ordering Physician: Jed Grissom Date of Service: 08/10/25 Procedure(s): XR chest 2V Accession Number(s): [id number] cc: Jed Grissom; Tiffany Kent MD Reason [...] 08/10/25 1104 DD/ 1057 TD/TT: 08/10/25 1101 Commutator Tester: Procedure Note Donotuseinterpreter, Image - 08/10/2025 [place] [address] XRay Report Signed Patient: Esther Méndez#: [id number] : 5Acct:[id number] Age/Sex: 80 / FADM Date: 08/10/25 Loc: .ED Attending Dr: Ordering Physician: Jed Grissom Date of Service: 08/10/25 Procedure(s): XR chest 2V Accession Number(s): [id number] cc: Jed Grissom; Tiffany Kent MD Reason [...] 08/10/25 1104 DD/ 1057 TD/TT: 08/10/25 1101 Commutator Tester: [facility] External Provider IMG XR PROCEDURES Final Result * High Sensitivity Troponin I (08/10/2025 10:20 AM EST) [facility] TROPONIN I HIGH SENSITIVITY 3.4 <3.5 - 17.0 ng/L [facility] Comment:The Edwards high sens itivity Troponin-I results should beused in conjunction with other diagnostic information suchas ECG, clinical observations and information, and patientsymptoms to aid in the diagnosis of RI. 08/10/2025 10:2 0 AM EST 08/10/2025 10:27 AM EST Generic External Data Provider LAB BLOOD ORDERAB LES Final Result [facility] [address] [place] [phone] * (ABNORMAL) Comprehensive Metabolic Panel (08/10/2025 10:20 AM EST) [facility] Sodium 141 135 - 145 mmol/L [facility] Potassium 4.1 3.3 - 5.1 mmol/L [facility] Chloride 108 96 - 108 mmol/L [facility] Carbon Dioxide 28 22 - 29 mmol/L [facility] Anion Gap 9(L) 12 - 20 [facility] Urea Nitrogen (BUN) 22(H) 9 - 16 mg/dL [facility] Creatinine, Serum 0.82 0.5 - 1.4 mg/dL [facility] Creatinine Clr Calc Pharmacy 38.8 [facility] Comment:Provided height and weight: 147.32 cm,51.1 kg.eGFR (calculated from the MDRD study equation) and eCrCl(calculated from the Cockcroft-Gault equation) are based ondifferent parameters and may not yield comparable results.If eCrCl result is absurd, please check patient'sheight/weight. Estimated Glomerular Filt Rate >60 [facility] Comment:Chronic Kidney Disea se: Estimated GFR < 60 mL/min/1.71e3Tlzied Kidney Disease: Estimated GFR < 15 mL/min/1.73m2 Glucose 114 60 - 115 mg/dL [facility] Calcium 9.7 8.4 - 10.2 mg/dL [facility] Bilirubin, Total 0.6 0.0 - 1.0 mg/dL [facility] Aspartate Amino Transferase 30 5 - 31 U/L [facility] Alanine Aminotransferase 29 0 - 31 U/L [facility] Total Protein 7.2 6.5 - 8.0 g/dL [facility] Albumin Level 4.1 3.5 - 5.0 g/dL [facility] Alkaline Phosphatase 201(H) 39 - 117 U/L [facility] 08/10/2025 10:2 0 AM EST 08/10/2025 10:27 AM EST us Generic External Data Provider LAB BLOOD ORDERAB LES Final Result [facility] [address] [place] [phone] * (ABNORMAL) Partial Thromboplastin Time, Activated (APTT) (08/10/2025 10:20 AM EST) Partial Thromboplastin Time 36.5(H) 26.7 - 34.1 SEC [facility] 08/10/2025 10:2 0 AM EST 08/10/2025 10:27 AM EST us Generic External Data Provider LAB BLOOD ORDERAB LES Final Result Performing Organization Address [facility] Co de Phone Number [facility] [address] [place] [address] [phone] * (ABNORMAL) Prothrombin Time-INR (08/10/2025 10:20 AM EST) [facility] Prothrombin Time 19.5(H) 11.2 - 13.5 SEC [facility] INTERNATIONAL NORM RATIO 1.6(H) 0.9 - 1.1 [facility] Comment:INTERNATIONAL NORMAL IZED RATIO (INR) [...] LES Final Result Performing Organization Address [facility] de Phone Number [facility] [address] [place] [address] [phone] * (ABNORMAL) CBC auto differential (08/10/2025 10:20 AM EST) [facility] White Blood Count 5.4 4.8 - 10.8 X10*3/uL [facility] Red Blood Count 4.76 4.20 - 5.50 X10*6/uL [facility] Hemoglobin 13.7 12.0 - 16.0 g/dl [facility] Hematocrit 42.5 37.0 - 47.0 % [facility] Mean Corpuscular Volume 89.3 80.0 - 98.0 fL [facility] Mean Corpuscular Hemoglobin 28.8 27.0 - 33.0 pg [facility] Mean Corpuscular HGB Conc 32.2 31.0 - 35.0 g/dl [facility] Red Cell Distribution Width 13.0 11.0 - 16.0 % [facility] Platelet Count 218 160 - 400 X10*3/uL [facility] Mean Platelet Volume 10.8 9.4 - 12.3 fL [facility] Neutrophils Percent Auto 43.7(L) 45 - 73 % [facility] Imm Gran Pct Auto 0.7(H) 0.0 - 0.4 % [facility] Lymphocytes Percent Auto 35.7 20 - 40 % [facility] Monocytes Percent Auto 13.1(H) 2 - 11 % [facility] Eosinophils Percent Auto 6.1(H) 0 - 4 % [facility] Basophils Percent Auto 0.7 0 - 2 % [facility] NRBC Pct Auto 0.0 0.0 - 0.2 /100WBC [facility] Neutrophils Absolute Auto 2.4 2.0 - 8.3 x10*3/uL [facility] Imm Gran Abs Auto 0.04(H) 0.00 - 0.03 X10*3/uL [facility] Lymphocytes Absolute Auto 1.9 1.2 - 4.9 X10*3/uL [facility] Monocytes Absolute Auto 0.7 0.1 - 1.2 X10*3/uL [facility] Eosinophils Absolute Auto 0.3 0.0 - 0.4 X10*3/uL [facility] Basophils Absolute Auto 0.0 0.0 - 0.2 X10*3/uL [facility] NRBC Abs Auto 0.000 0.0 - 0.012 X10*3/uL [facility] 08/10/2025 10:2 0 AM EST 08/10/2025 10:27 AM EST us Generic External Data Provider LAB BLOOD ORDERAB LES Final Result [facility] [address] [place], [place] [phone] documented in this encounter Visit Diagnoses [...] documented as of this encounter Care Teams Physics Tutor Relationship Specialty Start Date End Date Tiffany Kent MD [address] [place] [phone] PCP - General Family Medicine 09/27/13 Cy Perdue MD [address] [place] [phone] Cardiology 12/12/24 Dr. Phelps Psychiatry 02/21/25 documented as of this encounter
--- OUTSIDE RECORDS SUMMARY | 2025-08-10 11:13 | XMS_ITS | Clinical Summary ---
Author Organization [facility] Address [address] [place] [address] Care Team Providers Care Senior Drupal Developer Name Role Phone Tiffany Kent MD Primary Care Provider [phone] Allergies No known active allergies Medications aspirin [...] Cessation:Counseling Given: Not Answered [facility] Utilities Answer Date Recorded In the past 12 months has e [employer], [employer], [employer], or water [employer] threatened to shut off services in your [...] any time in the past 12 m [facility], were you homeless or living in a senior care (including now)? No 11/11/2024 Comments Unknown Sex [...] patient's age to complete this topic Insurance [facility] OUT OF NETWORK Advance Directives * Full Code (Latest Code Status on File) Date Activated Date Inactivated Comments 11/10/2024 9:12 AM Care Teams Senior Drupal Developer Relationship Specialty Start Date End Date Tiffany Kent MD [address] [place] [phone] PCP - General Family Medicine 11/10/24
--- OUTSIDE RECORDS SUMMARY | 2025-08-10 11:13 | XMS_ITS | Encounter Summary ---
Author Organization [employer] Address [address] [place] [address] 7 [place] [address] Care Team Providers Care Colorist Name Role Phone Tiffany Kent MD Primary Care Provider [phone]- [phone] Cy Perdue MD Unavailable [phone] Encounter Details Date Type Department Care Team ([facility] Contact Info) Description 06/09/2023 Orders Only [facility] MEDICINE [address] [place] [address] Tiffany Kent MD [address] [place] [address] Right-sided low back pain with right-sided sciatica, [...] type documented in this encounter Care Teams Colorist Relationship Specialty Start Date End Date Tiffany Kent MD [address] [place] [address] PCP - General Family Medicine 09/27/13 Cy Perdue MD [address] [place] [address] Cardiology 12/12/24 Dr. Phelps Psychiatry 02/21/25 documented as of this encounter
--- OUTSIDE RECORDS SUMMARY | 2025-08-10 11:14 | XMS_ITS | Encounter Summary ---
Author Organization [employer] Address [address] [facility] 7 [place] [address] Care Team Providers Care Wash House Worker Name Role Phone Tiffany Kent MD Primary Care Provider [phone]- [phone] Cy Perdue MD Unavailable [phone] Reason for Visit * Reason Comments Med Refill Encounter Details Date Type Department Care Team ([facility] Contact Info) Description 09/10/2023 Refill [facility] MEDICINE [address] [place] [address] Tiffany Kent MD [address] [place] [address] Social History Tobacco Use Types Packs/Day Years [...] on filedocumented in this encounter Care Teams Wash House Worker Relationship Specialty Start Date End Date Tiffany Kent MD [address] [place] [address] PCP - General Family Medicine 09/27/13 Cy Perdue MD [address] [place] [phone] Cardiology 12/12/24 Dr. Phelps Psychiatry 02/21/25 documented as of this encounter
--- OUTSIDE RECORDS SUMMARY | 2025-08-10 11:14 | XMS_ITS | Encounter Summary ---
Author Organization [employer] Address [address] [place] [address] Care Team Providers Care Animal Control Licensing Worker Name Role Phone Tiffany Kent MD Primary Care Provider [phone]- [phone] Cy Perdue MD Unavailable [phone] Reason for Visit * Reason Onset Date Comments Med Refill 08/06/2025 Encounter Details Date Type Department Care Team ([facility] Contact Info) Description 08/06/2025 Telephone [facility] MEDICINE [address] [place] [address] Tiffany Kent MD [address] [place] [address] Med Refill Social History Tobacco Use Types [...] the past 12 months, has t he [employer], gas, oil or water company threatened to [...] call placed to the pt with a managing director to inform that per [facility] [employer] that pt is 21days too early [...] Patient has chronic kidney disease No Sharmila rS RN Patient has chronic kidney disease Care [...] documented as of this encounter Care Teams Animal Control Licensing Worker Relationship Specialty Start Date End Date Tiffany Kent MD [address] [place] [address] PCP - General Family Medicine 09/27/13 Cy Perdue MD [address] [place] [phone] Cardiology 12/12/24 Dr. Phelps Psychiatry 02/21/25 documented as of this encounter
--- OUTSIDE RECORDS SUMMARY | 2025-08-10 11:14 | XMS_ITS | Encounter Summary ---
Author Organization [employer] Address [address] [place] [address] Care Team Providers Care Proof Technician Helper Name Role Phone Tiffany Kent MD Primary Care Provider [phone] Cy Perdue MD Unavailable [phone] Encounter Details Date Type Department Care Team ([facility] Contact Info) Description 08/05/2025 Orders Only [facility] External Provider, [facility] Social History Tobacco Use Types Packs/Day Years [...] Plan Weekly blood pressure task No Kosta Henrandez MA Help patients manage their type 2 [...] PM EST Narrative 08/05/2025 10:22 PM EST [place] [address] CT Scan Report Signed Patient: Edilma Méndez MR#: [id number] : 1945 Acct:[id number] Age/Sex: 80 / F ADM Date: 08/05/25 Loc: .ED Attending Dr: Ordering Physician: Kelly Heath DO Date of Service: 08/05/25 Procedure(s): CT abdomen pelvis w IV con Accession Number(s): [id number] cc: Tiffany Kent MD; Kelly Heath DO Report Number: [id number]: Total DLP = 0.00 mGy-cm Reason for Exam: abd pain CLINICAL HISTORY: abd pain CT abdomen and pelvis with contrast Comparison: CT/HI/SR - CT ABDOMEN PELVIS WITH IV CONTRAST [...] in OV> 08/05/252220 DD/ 18 TD/TT: 08/05/252218 Pipe Fitter Helper: Procedure Note Donotuseinterpreter, Image - 08/05/[address] [place] [address] [address] Scan Report Signed Patient: Esther Méndez#: [id number] : 5Acct:[id number] Age/Sex: 80 / FADM Date: 08/05/25 Loc: HO.ED Attending Dr: Ordering Physician: Kelly Heath DO Date of Service: 08/05/25 Procedure(s): CT abdomen pelvis w IV con Accession Number(s): [id number] cc: Tiffany Kent MD; Kelly Heath DO Report Number: [id number]: Total DLP = 0.00 mGy-cm Reason for Exam: abd pain CLINICAL HISTORY: abd pain CT abdomen and pelvis with contrast Comparison: CT/HI/SR - CT ABDOMEN PELVIS WITH IV CONTRAST [...] in OV> 08/05/252220 DD/ 18 TD/TT: 08/05/252218 Pipe Fitter Helper: [facility] External Provider IMG CT PROCEDURES Edited Result - Final * VENOUS BLOOD GAS (08/05/2025 9:05 PM EST) VBG pH 7.43 7.32 - 7.43 [facility] Comment:METER #: [id number] additional_comment: [place] VBG PCO2 35 mmHg [facility] Comment:METER #: [id number] additional_comment: Cb mickie VBG PO2 69 mmHg [facility] Comment:METER #: [id number] additional_comment: [place] VBG Base Excess -0.2 mmol/L [facility] Comment:METER #: [id number] additional_comment: [place] VBG HCO3 23 22 - 26 mmol/L [facility] Comment:METER #: [id number] additional_comment: [place] O2 Sat, Casey 93.0 % [facility] Comment:METER #: [id number] additional_comment: [place] 08/05/2025 9:05 PM EST 08/05/2025 9:10 PM EST Generic External Data Provider LAB BLOOD ORDERAB LES Final Result [facility] [address], [place] [phone] * Lactic Acid (08/05/2025 9:01 PM EST) Lactic Acid 1.3 0.5 - 2.0 mmol/L [facility] 08/05/2025 9:01 PM EST 08/05/2025 9:04 PM EST us Generic External Data Provider LAB BLOOD ORDERAB LES Final Result [facility] [address] [place] [phone] * XR Chest 2 Views (08/05/2025 6:50 PM EST) Anatomical Region Laterality Modality Chest Radiographic Nicolasa ging 08/05/2025 6:50 PM EST Narrative 08/05/2025 6:51 PM EST [place] [address] XRay Report Signed Patient: Edilma Méndez MR#: [id number] : 1945 Acct:[id number] Age/Sex: 80 / F ADM Date: 08/05/25 Loc: HO.ED Attending Dr: Ordering Physician: Generic ED Physician Date of Service: 08/05/25 Procedure(s): XR chest 2V Accession Number(s): [id number] cc: Tiffany Kent MD; Generic ED Physician [...] in OV> 08/05/251850 DD/ 49 TD/TT: 08/05/251849 Pipe Fitter Helper: Procedure Note Donotuseinterpreter, Image - 08/05/[address] [address] XRay Report Signed Patient: Domenica MéndezR#: [id number] : 5Acct:[id number] Age/Sex: 80 / FADM Date: 08/05/25 Loc: HO.ED Attending Dr: Ordering Physician: Generic ED Physician Date of Service: 08/05/25 Procedure(s): XR chest 2V Accession Number(s): [id number] cc: Tiffany Kent MD; Generic ED Physician [...] in OV> 08/05/251850 DD/ 49 TD/TT: 08/05/251849 Pipe Fitter Helper: [facility] External Provider IMG XR PROCEDURES Edited Result - Final * SARS-CoV-2 RNA, Influenza A/B, and RSV RNA, Ql NAAT (08/05/2025 5:47 PM EST) Influenza A PCR NEGATIVE Negative [facility] Influenza B PCR NEGATIVE Negative [facility] Resp Syncy Virus RNA Qual PCR NEGATIVE Negative [facility] SARS COV2 PCR NEGATIVE Negative [facility] Comment:All test results mus t [...] use by authorized laboratories.Testing performed on the [employer] GeneXpert utilizingreal-time RT-PCR.All SARS CoV2 and positive influenza A/B results arereported to [facility]. 08/05/2025 5:47 PM EST 08/05/2025 5:50 PM EST Generic External Data Provider LAB MICROBIOLOGY - GENERAL ORDERABLES Final Result Performing Organization Address City/[facility]/ZIP Co de Phone Number [facility] [address] [place] [phone] * High Sensitivity Troponin I (08/05/2025 5:47 PM EST) Pathologist [facility] TROPONIN I HIGH SENSITIVITY <2.7 <3.5 - 17.0 ng/L [facility] Comment:The [facility] high sens itivity Troponin-I results should beused in conjunction with other diagnostic information suchas ECG, clinical observations and information, and patientsymptoms to aid in the diagnosis of [place]. 08/05/2025 5:47 PM EST 08/05/2025 5:50 PM EST Generic External Data Provider LAB BLOOD ORDERAB LES Final Result Performing Organization Address [facility] Co de Phone Number [facility] [address] [place] [phone] * (ABNORMAL) Comprehensive Metabolic Panel (08/05/2025 5:47 PM EST) [facility] Sodium 138 135 - 145 mmol/L [facility] Potassium 4.4 3.3 - 5.1 mmol/L [facility] Chloride 109(H) 96 - 108 mmol/L [facility] Carbon Dioxide 19(L) 22 - 29 mmol/L [facility] Anion Gap 14 12 - 20 [facility] Urea Nitrogen (BUN) 26(H) 9 - 16 mg/dL [facility] Creatinine, Serum 0.85 0.5 - 1.4 mg/dL [facility] Creatinine Clr Calc Pharmacy 39.8 [facility] Comment:Provided height and weight: 154.94 cm,53.5 kg.eGFR (calculated from the MDRD study equation) and eCrCl(calculated from the Cockcroft-Gault equation) are based ondifferent parameters and may not yield comparable results.If eCrCl result is absurd, please check patient'sheight/weight. Estimated Glomerular Filt Rate >60 [facility] Comment:Chronic Kidney Disea se: Estimated GFR < 60 mL/min/1.38b1Cukvnp Kidney Disease: Estimated GFR < 15 mL/min/1.73m2 Glucose 199(H) 60 - 115 mg/dL [facility] Calcium 9.7 8.4 - 10.2 mg/dL [facility] Bilirubin, Total 0.4 0.0 - 1.0 mg/dL [facility] Aspartate Amino Transferase 26 5 - 31 U/L [facility] Alanine Aminotransferase 24 0 - 31 U/L [facility] Total Protein 7.5 6.5 - 8.0 g/dL [facility] Albumin Level 4.3 3.5 - 5.0 g/dL [facility] Alkaline Phosphatase 149(H) 39 - 117 U/L [facility] 08/05/2025 5:47 PM EST 08/05/2025 5:50 PM EST us Generic External Data Provider LAB BLOOD ORDERAB LES Final Result [facility] [address], [place] [phone] * (ABNORMAL) CBC auto differential (08/05/2025 5:47 PM EST) White Blood Count 9.3 4.8 - 10.8 X10*3/uL [facility] Red Blood Count 4.67 4.20 - 5.50 X10*6/uL [facility] Hemoglobin 13.5 12.0 - 16.0 g/dl [facility] Hematocrit 41.5 37.0 - 47.0 % [facility] Mean Corpuscular Volume 88.9 80.0 - 98.0 fL [facility] Mean Corpuscular Hemoglobin 28.9 27.0 - 33.0 pg [facility] Mean Corpuscular HGB Conc 32.5 31.0 - 35.0 g/dl [facility] Red Cell Distribution Width 13.1 11.0 - 16.0 % [facility] Platelet Count 254 160 - 400 X10*3/uL [facility] Mean Platelet Volume 10.8 9.4 - 12.3 fL [facility] Neutrophils Percent Auto 86.9(H) 45 - 73 % [facility] Imm Gran Pct Auto 1.2(H) 0.0 - 0.4 % [facility] Lymphocytes Percent Auto 9.5(L) 20 - 40 % [facility] Monocytes Percent Auto 2.3 2 - 11 % [facility] Eosinophils Percent Auto 0.0 0 - 4 % [facility] Basophils Percent Auto 0.1 0 - 2 % [facility] NRBC Pct Auto 0.0 0.0 - 0.2 /100WBC [facility] Neutrophils Absolute Auto 8.1 2.0 - 8.3 x10*3/uL [facility] Imm Gran Abs Auto 0.11(H) 0.00 - 0.03 X10*3/uL [facility] Lymphocytes Absolute Auto 0.9(L) 1.2 - 4.9 X10*3/uL [facility] Monocytes Absolute Auto 0.2 0.1 - 1.2 X10*3/uL [facility] Eosinophils Absolute Auto 0.0 0.0 - 0.4 X10*3/uL [facility] Basophils Absolute Auto 0.0 0.0 - 0.2 X10*3/uL [facility] NRBC Abs Auto 0.000 0.0 - 0.012 X10*3/uL [facility] 08/05/2025 5:47 PM EST 08/05/2025 5:50 PM EST us Generic External Data Provider LAB BLOOD ORDERAB LES Final Result [facility] [address] [place] [phone] documented in this encounter Visit Diagnoses [...] documented as of this encounter Care Teams Proof Technician Helper Relationship Specialty Start Date End Date Tiffany Kent MD [address] [place] [address] PCP - General Family Medicine 09/27/13 Cy Perdue MD [address] [place] [phone] Cardiology 12/12/24 Dr. Phelps Psychiatry 02/21/25 documented as of this encounter
--- OUTSIDE RECORDS SUMMARY | 2025-08-10 11:14 | XMS_ITS | Encounter Summary ---
Author Organization [employer] Address [address] [place] [address] Care Team Providers Care Hydraulic Controls Technician Name Role Phone Tiffany Kent MD Primary Care Provider [phone] Cy Perdue MD Unavailable [phone] Reason for Visit * Reason Onset Date Comments NEBULIZER 08/07/2025 Encounter Details Date Type Department Care Team ([facility] Contact Info) Description 08/07/2025 Telephone [facility] [address] [place] [address] Ang Ulloa MD [address] [place] [address] NEBULIZER Social History Tobacco Use Types Packs/Day [...] the past 12 months, has t he [employer], gas, oil or water [employer] threatened to shut off services in your [...] 08/07/2025 4:10 PM EST Received call from [facility] regarding a potential insurance discrepancy. [facility] reports they are unable to bill [employer] for the patient???s nebulizer due to conflicting information. Patient demographics and insurance information were verified over the phone. [facility] requested that the insurance card be faxed to their ???missing information?? line at [phone]. Consulted with the javascript front end developer, who confirmed that the patient???s insurance is active; however, it appears that [facility] has a different date of on file for the patient. Per request, the insurance card and verification status were faxed to [facility]. Fax confirmation received. documented in this encounter [...] documented as of this encounter Care Teams Hydraulic Controls Technician Relationship Specialty Start Date End Date Tiffany Kent MD [address] [place] [phone] PCP - General Family Medicine 09/27/13 Cy Perdue MD [address] [place] [phone] Cardiology 12/12/24 Dr. Phelps Psychiatry 02/21/25 documented as of this encounter
[2025-08-10 11:38] LABS: Erythrocyte Sedimentation Rate 8 MM/HR (0-20)
[2025-08-10 13:25] VITALS: BP 141/77; PULSE 91; RESP 17; TEMP 36.6; O2SAT 95
== END 2025-08-10 13:26 | disposition home or self-care (01) ==
PROVIDERS: Physician Assistant; Emergency Provider Emergency Medicine; PCP Family Medicine
DX: R51.9 Headache, unspecified (principal); R07.89 Other chest pain; Z86.711 Personal history of pulmonary embolism; Z79.01 Long term (current) use of anticoagulants; Z79.899 Other long term (current) drug therapy
CPT/HCPCS: 36415; 70450; 71046; 80053; 84484; 85025; 85610; 85652; 85730; 93005; 96374; 99284; J2270

== ENCOUNTER → 2025-08-10 10:10 | Outpatient (BNV) | payer OTHER, SELFPAY | PROVIDERS: Emergency Provider Emergency Medicine; PCP Family Medicine; Visit Provider Internal Medicine | DX: R07.9 Chest pain, unspecified (principal) | CPT/HCPCS: 93010 ==

== ENCOUNTER → 2025-08-10 10:19 | Outpatient (BNV) | payer OTHER, SELFPAY | PROVIDERS: Emergency Provider Emergency Medicine; PCP Family Medicine; Visit Provider Radiology Diagnostic Radiology | DX: R51.9 Headache, unspecified (principal); R07.9 Chest pain, unspecified | CPT/HCPCS: 70450; 71046 ==